=== PATIENT | male | born 1955 | race African-American/Black ===

== ENCOUNTER 2017-05-26 17:28 | Inpatient (IN) | payer OTHER ==
[2017-05-26] VITALS (8 sets, daily range): BP systolic 143–191; BP diastolic 83–112; PULSE 55–67; RESP 15–18; TEMP 98–98.5; O2SAT 96–98
[~2017-05-26] VITALS: Ht 165.1 cm; Wt 87.0 kg
[~2017-05-26 17:28] MED LIST: BLOOD PRESSURE MED
[2017-05-26] MEDS ORDERED: ASPIRIN 81 MG CHEW TAB PO ONE (18:45)
[2017-05-26] MEDS ORDERED: SODIUM CHLORIDE 0.9% FLUSH 10 ML FLUSH IVF PRN (18:45)
--- NOTE | 2017-05-26 18:46 | PD ---
HPI Chief Complaint: Chest Pain Time Seen by Provider: 18:35 Travel History International Travel<30 days: No Contact w/Intl Traveler<30days: No Traveled to known affect area: No History of Present Illness HPI 62-year-old male presents to the emergency department for evaluation of chest pain that started approximately one week ago. He states it is midsternal. He has no chest pain at my evaluation. He states when he does have it'll be sharp without radiation. He reports history of AL with stent placement approximately 1.5 years ago. He states this pain is similar. He states he is not currently follow-up with vice president of brand management. He denies any recent stress test or cardiac catheterization. Patient denies any recent surgery or travel. He denies any history of DVT or PE. No hemoptysis. Patient states the pain has been intermittent over the past week. He denies exacerbating factors. He states that rest well to alleviate pain. Moderate severity. PFSH Past Medical History Cardiac Catheterization: Yes Cardiovascular Problems: Yes (AL) Diminished Hearing: No Hypertension: Yes Immunizations Current: No Tetanus Vaccination: < 5 Years Influenza Vaccination: No Past Surgical History Abdominal Surgery: Yes (HERNIA REPAIR) Appendectomy: Yes Coronary Stent: Yes Other Surgery: Yes (LUNGS A CHILD, DOES NOT KNOW SPECIFICS) Social History Alcohol Use: Yes (OCC) Tobacco Use: Yes (1 PPD) Substance Use: Yes (CRACK) Allergies-Medications (Allergen,Severity, Reaction): Coded Allergies: No Known Allergies (Verified Allergy, Unknown, 05/26/17) Reported Meds & Prescriptions Reported Meds & Active Scripts Active Reported [Blood Pressure Med] Review of Systems Except as stated in HPI: all other systems reviewed are Neg Physical Exam Narrative GENERAL: Well-nourished, well-developed male patient, afebrile. SKIN: Focused skin assessment warm/dry. HEAD: Normocephalic. Atraumatic. EYES: No scleral icterus. No injection or drainage. NECK: Supple, trachea midline. No JVD or lymphadenopathy. CARDIOVASCULAR: Regular rate and rhythm without murmurs, gallops, or rubs. Bilateral radial and pedal pulses are 2+. RESPIRATORY: Breath sounds equal bilaterally. No accessory muscle use. Lungs sounds are clear to auscultation. GASTROINTESTINAL: Abdomen soft, non-tender, nondistended. MUSCULOSKELETAL: No cyanosis, or edema. BACK: Nontender without obvious deformity. No CVA tenderness. Data Data Last Documented VS Vital Signs Date Time Temp Pulse Resp B/P (MAP) Pulse Ox O2 Delivery O2 Flow Rate FiO2 05/26/17 19:13 75 17 98 Room Air 05/26/17 19:12 143/83 (103) 05/26/17 17:29 98.5 Orders Orders Electrocardiogram (05/26/17 ) Basic Metabolic Panel (Bmp) (05/26/17 18:45) Ckmb (Isoenzyme) Profile (05/26/17 18:45) Complete Blood Count With Diff (05/26/17 18:45) Magnesium (Mg) (05/26/17 18:45) Prothrombin Time / Inr (Pt) (05/26/17 18:45) Act Partial Throm Time (Ptt) (05/26/17 18:45) Troponin I (05/26/17 18:45) Chest, Single Ap (05/26/17 18:45) Ecg Monitoring (05/26/17 18:45) Bilateral Bp Monitoring (05/26/17 18:45) Iv Access Insert/Monitor (05/26/17 18:45) Oximetry (05/26/17 18:45) Oxygen Administration (05/26/17 18:45) Aspirin Chew (Aspirin Chew) (05/26/17 18:45) Sodium Chloride 0.9% Flush (Ns Flush) (05/26/17 18:45) CKMB (05/26/17 19:10) CKMB% (05/26/17 19:10) Heparin Inj (Heparin Inj) (05/26/17 20:30) Heparin Inj (Heparin Inj) (05/27/17 02:30) Heparin Inj (Heparin Inj) (05/27/17 02:30) Heparin-D5w 25,000 U/250 Ml (Heparin-D5w (05/26/17 20:30) Cbc No Diff, Includes Plts (05/29/17 06:00) Act Partial Throm Time (Ptt) (05/27/17 03:24) Occult Blood (Hemoccult) Stool (05/26/17 20:24) Consult Cardiology (05/26/17 ) Admit Order (Ed Use Only) (05/26/17 20:40) Labs Laboratory Tests Test 05/26/17 19:10 White Blood Count 5.3 TH/MM3 Red Blood Count 4.75 MIL/MM3 Hemoglobin 14.0 GM/DL Hematocrit 41.6 % Mean Corpuscular Volume 87.4 FL Mean Corpuscular Hemoglobin 29.5 PG Mean Corpuscular Hemoglobin Concent 33.8 % Red Cell Distribution Width 16.6 % Platelet Count 140 TH/MM3 Mean Platelet Volume 7.6 FL Neutrophils (%) (Auto) 40.3 % Lymphocytes (%) (Auto) 45.8 % Monocytes (%) (Auto) 9.5 % Eosinophils (%) (Auto) 3.8 % Basophils (%) (Auto) 0.6 % Neutrophils # (Auto) 2.2 TH/MM3 Lymphocytes # (Auto) 2.4 TH/MM3 Monocytes # (Auto) 0.5 TH/MM3 Eosinophils # (Auto) 0.2 TH/MM3 Basophils # (Auto) 0.0 TH/MM3 CBC Comment DIFF FINAL Differential Comment Prothrombin Time 10.4 SEC Prothromb Time International Ratio 1.0 RATIO Activated Partial Thromboplast Time 25.9 SEC Blood Urea Nitrogen 29 MG/DL Creatinine 2.40 MG/DL Random Glucose 110 MG/DL Calcium Level 8.8 MG/DL Magnesium Level 1.8 MG/DL Sodium Level 140 MEQ/L Potassium Level 3.8 MEQ/L Chloride Level 105 MEQ/L Carbon Dioxide Level 29.6 MEQ/L Anion Gap 5 MEQ/L Estimat Glomerular Filtration Rate 33 ML/MIN Total Creatine Kinase 115 U/L Creatine Kinase MB 5.0 NG/ML Troponin I 1.76 NG/ML MDM Medical Decision Making Medical Screen Exam Complete: Yes Emergency Medical Condition: Yes Medical Record Reviewed: Yes Interpretation(s) Last Impressions Chest X-Ray 05/26/17 2247 Signed Impressions: Service Date/Time: Friday, May 26, 2017 19:18 - CONCLUSION: 1. Minimal basilar atelectasis. Delgado Malhotra MD Differential Diagnosis ACS versus chest wall pain versus anxiety versus pneumonia versus pneumothorax Narrative Course 62-year-old male presents to the emergency department for evaluation of intermittent chest pain for the past week. He states this pain is similar to his previous AL. EKG shows sinus rhythm, unchanged since previous EKG in March. This was reviewed with my attending physician. CBC, BMP, CK, troponin , magnesium, PTT, PT/INR, chest x-ray are ordered and pending. Patient is given aspirin 162 mg by mouth. CBC shows no acute abnormality. BMP shows elevated B and a creatinine at 29/ 2.40. CK is 115. Troponin is 1.76. Magnesium is 1.8. Coags are unremarkable. Chest x-ray shows minimal basilar atelectasis. Due to elevated troponin, vice president of brand management airport operations officer, Dr. Jarvis, is consulted. Patient states he is still chest pain free at this time. Dr. Cleary accepted admission. Josefa Boggs May 26, 2017 18:46
[2017-05-26 19:24] LABS: AUTOMATED NEUTROPHIL # 2.2 TH/MM3 (1.8-7.7); BASOPHIL % 0.6 % (0.0-2.0); EOSINOPHIL # 0.2 TH/MM3 (0-0.4); EOSINOPHIL % 3.8 % (0.0-4.0); HEMATOCRIT 41.6 % (39.0-51.0); HEMO FLAGS DIFF FINAL; LYMPH % 45.8 % (9.0-44.0); LYMPHOCYTE # 2.4 TH/MM3 (1.0-4.8); MEAN CELL VOLUME 87.4 FL (80.0-100.0); MEAN CORPUSCULAR HEMOGLOBIN 29.5 PG (27.0-34.0); MEAN CORPUSCULAR HGB CONC 33.8 % (32.0-36.0); MONO % 9.5 % (0.0-8.0); NEUT % 40.3 % (16.0-70.0); PLATELET COUNT 140 TH/MM3 (150-450); RED BLOOD COUNT 4.75 MIL/MM3 (4.50-5.90); RED CELL DISTRIBUTION WIDTH 16.6 % (11.6-17.2); WHITE BLOOD COUNT 5.3 TH/MM3 (4.0-11.0)
[2017-05-26 19:35] LABS: APTT (PATIENT) 25.9 SEC (24.3-30.1); PROTHROMBIN TIME - PATIENT 10.4 SEC (9.8-11.6)
--- NOTE | 2017-05-26 19:42 | RADRPT ---
EXAM DATE/TIME: 05/26/2017 19:18 [place] COMPARISON: No previous studies available for comparison. INDICATIONS : Chest pain. MEDICAL HISTORY : Myocardial infarction. Hypertension SURGICAL HISTORY : Stents. ENCOUNTER: Initial ACUITY: 1 week PAIN SCORE: 8/10 LOCATION: Bilateral chest Upper Left. FINDINGS: A single view of the chest demonstrates minimal basilar atelectasis. No effusion. No pneumothorax. He art size within normal limits. CONCLUSION: 1. Minimal basilar atelectasis. Delgado Malhotra MD on May 26, 2017 at 19:39 Board Certified Radiologist. This report was verified electronically.
[2017-05-26 19:43] LABS: ANION GAP 5 MEQ/L (5-15); BICARBONATE 29.6 MEQ/L (21.0-32.0); BLOOD UREA NITROGEN 29 MG/DL (7-18); CHLORIDE 105 MEQ/L (98-107); GLOMERULAR FILTRATION RATE 33 ML/MIN (>89); MAGNESIUM 1.8 MG/DL (1.5-2.5); POTASSIUM 3.8 MEQ/L (3.5-5.1); SODIUM (NA) 140 MEQ/L (136-145)
[2017-05-26 19:44] LABS: CREATINE KINASE 115 U/L (39-308)
[2017-05-26] MEDS ORDERED: HEPARIN SODIUM - IV 10,000 UNITS/10 ML VIAL IV PUSH ONE (20:30)
[2017-05-26] MEDS: SODIUM CHLOR 0.9% 1000 ML INJ 1,000 ML IV SCH (20:41)
[2017-05-26] MEDS ORDERED: ACETAMINOPHEN/HYDROcodone 325 MG/5 MG TAB PO PRN (20:45)
[2017-05-26] MEDS ORDERED: ONDANSETRON HCL 4 MG/2 ML VIAL IVP PRN (20:45)
[2017-05-26] MEDS ORDERED: BISACODYL 10 MG SUPP RECTAL PRN (20:45)
[2017-05-26] MEDS ORDERED: MORPHINE SULFATE 4 MG/ML INJ IV PUSH PRN (20:45)
[2017-05-26] MEDS ORDERED: SODIUM CHLORIDE 0.9% FLUSH 10 ML FLUSH IV FLUSH PRN (20:45)
[2017-05-26] MEDS ORDERED: LACTULOSE SYRUP 20 GM/30 ML CUP PO PRN (20:45)
[2017-05-26] MEDS ORDERED: ACETAMINOPHEN 325 MG TAB PO PRN (20:45)
[2017-05-26] MEDS ORDERED: SENNOSIDES 8.6 MG TAB PO PRN (20:45)
[2017-05-26] MEDS ORDERED: NITROGLYCERIN 2% OINT 1 GM PACKET TOPICAL PRN (20:45)
[2017-05-26] MEDS ORDERED: MAGNESIUM HYDROXIDE SUSP 30 ML CUP PO PRN (20:45)
--- NOTE | 2017-05-26 20:46 | HHI.HP ---
[facility] Unknown Admission Diagnosis NSTEMI Diagnoses: (1) NSTEMI (non-ST elevated myocardial infarction) Diagnosis: Principal (2) ISABELLA (acute kidney injury) Diagnosis: Principal (3) HTN (hypertension) Diagnosis: Principal (4) Tobacco abuse Diagnosis: Principal (5) Crack cocaine use Diagnosis: Principal Travel History International Travel<30 Days: No Contact w/Intl Traveler <30 Da: No Traveled to Known Affected Are: No History of Present Illness This is a 62-year-old male with a PMH of HTN, CAD, Tobacco Abuse and Crack Cocaine Abuse who presented to the ER w/ complaints of chest pain x1 wk. States symptoms similar to previous ID, now pain progressively worse. Denies recent crack use. On arrival, BP 191/100, HR 66, O2 sat 97% on RA, Afebrile. CBC essentially unremarkable except for platelets 140, previously 198 on . And in 2.40, producing 1.97 on 04/08/17. Troponin I 1.76. INR 1.0. CXR with minimal basilar atelectasis. Dr. Malhotra consulted by ER physician, started on Heparin gtt, will eval in am, pt currently chest pain free. Review of Systems Except as stated in HPI: all other systems reviewed are Neg ROS: 14 point review of systems otherwise negative. Past Family Social History Past Medical History PMH: HTN, CAD, Tobacco Abuse and Crack Cocaine Abuse Past Surgical History PAST SURGICAL HISTORY: Hernia Repair, Appendectomy, Cardiac Stent Allergies: Coded Allergies: No Known Allergies (Verified Allergy, Unknown, 05/26/17) Family History PAST FAMILY HISTORY: Reviewed. No h/o DM or CAD Social History PAST SOCIAL HISTORY: Occasional alcohol. Smokes 1ppd. +Crack Cocaine. Physical Exam Vital Signs Vital Signs Date Time Temp Pulse Resp B/P (MAP) Pulse Ox O2 Delivery O2 Flow Rate FiO2 05/26/17 19:13 75 17 98 Room Air 05/26/17 19:12 67 18 143/83 (103) 96 Room Air 05/26/17 18:37 66 18 191/100 (130) 97 Room Air 05/26/17 18:37 Room Air 05/26/17 17:36 96 05/26/17 17:29 98.5 157/91 (113) Room Air Physical Exam PE: GENERAL: Middle-aged black male in no acute distress. HEENT: PERRLA, EOMI. No scleral icterus or conjunctival pallor. No lid lag or facial droop. CARDIOVASCULAR: Regular rate and rhythm. No obvious murmurs to auscultation. No chest tenderness to palpation. RESPIRATORY: No obvious rhonchi or wheezing. Clear to auscultation. Breath sounds equal bilaterally. GASTROINTESTINAL: Abdomen soft, non-tender, nondistended. BS normal. MUSCULOSKELETAL: Extremities without clubbing, cyanosis, or edema. No obvious deformities. NEUROLOGICAL: Awake, alert and oriented x4. No focal neurologic deficits. Moving both upper and lower extremities spontaneously. Laboratory Laboratory Tests Test 05/26/17 19:10 White Blood Count 5.3 Red Blood Count 4.75 Hemoglobin 14.0 Hematocrit 41.6 Mean Corpuscular Volume 87.4 Mean Corpuscular Hemoglobin 29.5 Mean Corpuscular Hemoglobin Concent 33.8 Red Cell Distribution Width 16.6 Platelet Count 140 Mean Platelet Volume 7.6 Neutrophils (%) (Auto) 40.3 Lymphocytes (%) (Auto) 45.8 Monocytes (%) (Auto) 9.5 Eosinophils (%) (Auto) 3.8 Basophils (%) (Auto) 0.6 Neutrophils # (Auto) 2.2 Lymphocytes # (Auto) 2.4 Monocytes # (Auto) 0.5 Eosinophils # (Auto) 0.2 Basophils # (Auto) 0.0 CBC Comment DIFF FINAL Differential Comment Prothrombin Time 10.4 Prothromb Time International Ratio 1.0 Activated Partial Thromboplast Time 25.9 Blood Urea Nitrogen 29 Creatinine 2.40 Random Glucose 110 Calcium Level 8.8 Magnesium Level 1.8 Sodium Level 140 Potassium Level 3.8 Chloride Level 105 Carbon Dioxide Level 29.6 Anion Gap 5 Estimat Glomerular Filtration Rate 33 Total Creatine Kinase 115 Creatine Kinase MB 5.0 Troponin I 1.76 Result Diagram: 05/26/17190905/26/171909 Caprini VTE Risk Assessment Caprini VTE Risk Assessment: Mod/High Risk (score >= 2) Caprini Risk Assessment Model Point Value = 1 Point Value = 2 Point Value = 3 Point Value = 5 Age 41-60 Minor surgery BMI > 25 kg/m2 Swollen legs Varicose veins or History of unexplained or recurrent spontaneous Oral contraceptives or hormone replacement Sepsis (< 1 month) Serious lung disease, including pneumonia (< 1 month) Abnormal pulmonary function Acute myocardial infarction Congestive heart failure (< 1 month) History of inflammatory bowel disease Medical patient at bed rest Age 61-74 Arthroscopic surgery Major open surgery (> 45 min) Laparoscopic surgery (> 45 min) Malignancy Confined to bed (> 72 hours) Immobilizing plaster cast Central venous access Age >= 75 History of VTE Family history of VTE Factor V Leiden Prothrombin [id number] Lupus anticoagulant Anticardiolipin antibodies Elevated serum homocysteine Heparin-induced thrombocytopenia Other congenital or acquired thrombophilia Stroke (< 1 month) Elective arthroplasty Hip, pelvis, or leg fracture Acute spinal cord injury (< 1 month) Prophylaxis Regimen Total Risk Factor Score Risk Level Prophylaxis Regimen 0-1 Low Early ambulation 2 Moderate Order ONE of the following: *Sequential Compression Device (SCD) *Heparin 5000 units SQ BID 3-4 Higher Order ONE of the following medications: *Heparin 5000 units SQ TID *Enoxaparin/Lovenox 40 mg SQ daily (WT < 150 kg, CrCl > 30 mL/min) *Enoxaparin/Lovenox 30 mg SQ daily (WT < 150 kg, CrCl > 10-29 mL/min) *Enoxaparin/Lovenox 30 mg SQ BID (WT < 150 kg, CrCl > 30 mL/min) AND/OR *Sequential Compression Device (SCD) 5 or more Highest Order ONE of the following medications: *Heparin 5000 units SQ TID (Preferred with Epidurals) *Enoxaparin/Lovenox 40 mg SQ daily (WT < 150 kg, CrCl > 30 mL/min) *Enoxaparin/Lovenox 30 mg SQ daily (WT < 150 kg, CrCl > 10-29 mL/min) *Enoxaparin/Lovenox 30 mg SQ BID (WT < 150 kg, CrCl > 30 mL/min) AND *Sequential Compression Device (SCD) Assessment and Plan Problem List: (1) NSTEMI (non-ST elevated myocardial infarction) ICD Code: I21.4 - Non-ST elevation (NSTEMI) myocardial infarction (2) ISABELLA (acute kidney injury) ICD Code: N17.9 - Acute kidney failure, unspecified (3) HTN (hypertension) ICD Code: I10 - Essential (primary) hypertension (4) Tobacco abuse ICD Code: Z72.0 - Tobacco use (5) Crack cocaine use ICD Code: F14.90 - Cocaine use, unspecified, uncomplicated Assessment and Plan A/P: 1. NSTEMI: c/o chest pain x1 wk, Trop 1.76, EKG abnormal however no new changes. Dr. Malhotra consulted, started on Heparin gtt, will eval in am. Currently chest pain free. ASA, Statin, hold B-gena in light of h/o Cocaine. Check serial enzymes for trend. Check Urine Drug Screen. 2. ISABELLA: Creatinine 2.40, previously 1.97 on 04/08/17. Check UA and UDS. IVF for hydration, repeat labs in am. 3. HTN: BP 190's on arrival, likely compounded by chest pain. BP currently 150's, will monitor. 4. Tobacco Abuse: Pt counselled. Ativan prn, no NicoDerm to avoid further vasoconstriction. 5. Crack Cocaine Abuse: Denies recent ingestion, check UDS as above, Ativan prn for withdrawal. 6. DVT Prophylaxis: Heparin gtt 7. Social work for d/c planning as needed. 8. Case discussed w/ ER physician at length. Physician Certification 2 Midnight Certification Type: Admission for Inpatient Services Order for Inpatient Services The services are ordered in accordance with Medicare regulations or non- Medicare payer requirements, as applicable. In the case of services not specified as inpatient-only, they are appropriately provided as inpatient services in accordance with the 2-midnight benchmark. Estimated LOS (days): 2 days is the estimated time the patient will need to remain in the hospital, assuming treatment plan goals are met and no additional complications. Post-Hospital Plan: Not yet determined Nadeen Cleary MD May 26, 2017 20:46
[2017-05-26] MEDS: HEPARIN-D5W 25,000 U/250 ML 250 ML IV PRN (20:49)
[2017-05-26] MEDS: SODIUM CHLORIDE 0.9% FLUSH 10 ML FLUSH IV FLUSH SCH (21:00)
[2017-05-26] MEDS ORDERED: METOPROLOL TARTRATE 25 MG TAB PO SCH (21:00)
[2017-05-26] MEDS: DOCUSATE SODIUM 50 MG/SENNA 8.6 MG TAB PO SCH (21:00)
[2017-05-26] MEDS ORDERED: LORazepam 2 MG/ML VIAL IV PUSH PRN (21:45)
[2017-05-26] MEDS ORDERED: TAMS0.4C4 PO (22:53)
[2017-05-26] MEDS ORDERED: ATEN50TA PO (22:53)
[2017-05-26] MEDS ORDERED: PRAS10TA PO (22:53)
[2017-05-26] MEDS ORDERED: HYDR25TA5 PO (22:53)
[2017-05-26] MEDS ORDERED: CITA20TA4 PO (22:53)
[2017-05-26] MEDS ORDERED: ATOR10TA15 PO (22:53)
[2017-05-26] MEDS ORDERED: hydrALAZINE HCL 20 MG/ML VIAL IV PUSH ONE (23:30)
[2017-05-26] MEDS ORDERED: ATORVASTATIN 10 MG TAB PO SCH (23:45)
[2017-05-27] VITALS (22 sets, daily range): BP systolic 146–162; BP diastolic 76–97; PULSE 56–93; RESP 18–20; TEMP 97.2–98.5; O2SAT 95–98
[2017-05-27 01:24] LABS: BLOOD, URINE NEG (NEG); COMMENT (UR) CULT NOT INDICATED; CULTURE IF INDICATED CULT NOT INDICATED; GLUCOSE,URINE NEG (NEG); KETONE, URINE NEG (NEG); MUCUS URINE FEW /lpf (OCC); NITRITE,URINE NEG (NEG); PH, URINE 5.5 (5.0-8.5); SQUAMOUS EPITHELIAL CELL URINE <1 /hpf (0-5); URINE COLOR YELLOW (YELLW/STRAW)
[2017-05-27] MEDS: TAMSULOSIN HCL 0.4 MG CAP PO SCH ×2 (01:37→21:59)
[2017-05-27] MEDS ORDERED: PILL SPLITTER OTHER PRN (02:00)
[2017-05-27] MEDS ORDERED: HEPARIN SODIUM - IV 10,000 UNITS/10 ML VIAL IV PUSH PRN ×2 (02:30)
[2017-05-27 04:27] LABS: AUTOMATED NEUTROPHIL # 1.9 TH/MM3 (1.8-7.7); BASOPHIL % 0.6 % (0.0-2.0); EOSINOPHIL # 0.2 TH/MM3 (0-0.4); EOSINOPHIL % 4.3 % (0.0-4.0); HEMATOCRIT 38.8 % (39.0-51.0); HEMO FLAGS DIFF FINAL; LYMPH % 50.5 % (9.0-44.0); LYMPHOCYTE # 2.8 TH/MM3 (1.0-4.8); MEAN CELL VOLUME 86.8 FL (80.0-100.0); MEAN CORPUSCULAR HEMOGLOBIN 29.4 PG (27.0-34.0); MEAN CORPUSCULAR HGB CONC 33.9 % (32.0-36.0); MONO % 11.2 % (0.0-8.0); NEUT % 33.4 % (16.0-70.0); PLATELET COUNT 131 TH/MM3 (150-450); RED BLOOD COUNT 4.48 MIL/MM3 (4.50-5.90); RED CELL DISTRIBUTION WIDTH 16.1 % (11.6-17.2); WHITE BLOOD COUNT 5.6 TH/MM3 (4.0-11.0)
[2017-05-27 05:06] LABS: APTT (PATIENT) 67.3 SEC (24.3-30.1)
[2017-05-27] MEDS: SODIUM CHLOR 0.9% 1000 ML INJ 1,000 ML IV SCH ×3 (06:41→22:58)
[2017-05-27 07:23] LABS: ALT (GPT) 18 U/L (12-78); ANION GAP 7 MEQ/L (5-15); AST (GOT) 23 U/L (15-37); BICARBONATE 26.1 MEQ/L (21.0-32.0); BLOOD UREA NITROGEN 27 MG/DL (7-18); CHLORIDE 107 MEQ/L (98-107); GLOMERULAR FILTRATION RATE 39 ML/MIN (>89); POTASSIUM 3.6 MEQ/L (3.5-5.1); SODIUM (NA) 140 MEQ/L (136-145)
[2017-05-27 07:27] LABS: ALKALINE PHOSPHATASE 72 U/L (45-117); TOTAL BILIRUBIN ADULT 0.5 MG/DL (0.2-1.0)
--- NOTE | 2017-05-27 07:56 | PD.CONS ---
HPI Consult Requested By Primary Care Physician Unknown History of Present Illness 62-year-old male with a PMH of HTN, CAD, Tobacco Abuse and Crack Cocaine Abuse who presented to the ER w/ complaints of chest pain x1 wk. States symptoms similar to previous PA, now pain progressively worse. Denies recent crack use. Report being noncompliant with Effient for about 1 week. On arrival, BP 191/100 , HR 66, O2 sat 97% on RA, Afebrile. creatinine 2.40. Troponin 1.76. Cardiology consulted for evaluation. Review of Systems Consitutional: DENIES: Fatigue, Fever, Chills, Weight gain, Weight loss Eyes: DENIES: Amaurosis Fugax, Change in vision HEENT: DENIES: Lightheadedness, Change in hearing Respiratory: DENIES: See HPI, Cough, Snoring, Shortness of breath, Wheezing, Sputum production Cardiovascular: COMPLAINS OF: See HPI, Chest pain, DENIES: Palpitations, Syncope, Tachycardia Gastrointestinal: DENIES: Nausea, Vomiting, Change in bowel habits, Reflux, Bloody stools, Melena Genitourinary: DENIES: Urinary incontinence, Difficulty voiding Integumentary: DENIES: Rash Neurologic: DENIES: Tingling or numbness, Memory problems, Poor Balance, Stroke symptoms Musculoskeletal: DENIES: Joint pain, Muscle pain, Limited range of motion, Back pain Psychiatric: DENIES: Anxiety, Depression, Sleep disturbances Hematologic: DENIES: Bruising tendencies, Bleeding tendencies Endocrine: DENIES: Weight gain, Weight loss, Thyroid disease Past Family Social History Allergies: Coded Allergies: No Known Allergies (Verified Allergy, Unknown, 05/26/17) Past Medical History HTN, CAD, Tobacco Abuse and Crack Cocaine Abuse Past Surgical History Hernia Repair, Appendectomy, Cardiac Stent Reported Medications Reported Meds & Active Scripts Active Reported Effient (Prasugrel) 10 Mg Tab 10 Mg PO DAILY Atorvastatin (Atorvastatin Calcium) 10 Mg Tab 10 Mg PO HS Citalopram (Citalopram Hydrobromide) 20 Mg Tab 20 Mg PO DAILY Hydrochlorothiazide 25 Mg Tab 25 Mg PO DAILY Atenolol 50 Mg Tab 50 Mg PO BID Tamsulosin (Tamsulosin HCl) 0.4 Mg Cap 0.4 Mg PO HS [Blood Pressure Med] Active Ordered Medications Current Medications Medications (Trade) Dose Ordered Sig/Fer Route Start Time Stop Time Status Last Admin (Heparin Inj) 5,000 units UNSCH PRN IV PUSH 05/27/17 02:30 (Heparin Inj) 2,500 units UNSCH PRN IV PUSH 05/27/17 02:30 Heparin Sodium/ Dextrose 250 ml @ 10 mls/hr TITRATE PRN IV 05/26/17 20:30 05/26/17 20:49 (Ecotrin Ec) 81 mg DAILY PO 05/27/17 09:00 (Pravachol) 40 mg DAILY PO 05/27/17 09:00 (Nitroglycerin 2% Oint) 0.5 inch Q6HR PRN TOPICAL 05/26/17 20:45 Sodium Chloride 1,000 ml @ 100 mls/hr Q10H IV 05/26/17 20:41 05/26/17 20:41 (NS Flush) 2 ml UNSCH PRN IV FLUSH 05/26/17 20:45 (NS Flush) 2 ml BID IV FLUSH 05/26/17 21:00 (Zofran Inj) 4 mg Q6H PRN IVP 05/26/17 20:45 (Tylenol) 650 mg Q6H PRN PO 05/26/17 20:45 ([place] 5-325 Mg) 1 tab Q4H PRN PO 05/26/17 20:45 (Morphine Inj) 2 mg Q3H PRN IV PUSH 05/26/17 20:45 (Cira-Colace) 1 tab BID PO 05/26/17 21:00 (Milk Of Magnesia Liq) 30 ml Q12H PRN PO 05/26/17 20:45 (Senokot) 17.2 mg Q12H PRN PO 05/26/17 20:45 (Dulcolax Supp) 10 mg DAILY PRN RECTAL 05/26/17 20:45 (Lactulose Liq) 30 ml DAILY PRN PO 05/26/17 20:45 (Ativan Inj) 1 mg Q2H PRN IV PUSH 05/26/17 21:45 (Lipitor) 10 mg HS PO 05/26/17 23:45 05/27/17 01:37 (CeleXA) 20 mg DAILY PO 05/27/17 09:00 (Flomax) 0.4 mg HS PO 05/26/17 23:45 05/27/17 01:37 (Lopressor) 12.5 mg Q12HR PO 05/27/17 09:00 (Pill Splitter) 1 ea UNSCH PRN OTHER 05/27/17 02:00 Family History No h/o DM or CAD Social History Occasional alcohol. Smokes 1ppd. +Crack Cocaine. Physical Exam Vital Signs Vital Signs Date Time Temp Pulse Resp B/P (MAP) Pulse Ox O2 Delivery O2 Flow Rate FiO2 05/27/17 05:00 98.0 63 18 146/93 (110) 98 05/27/17 02:00 57 05/27/17 02:00 98.0 67 18 158/76 (103) 98 05/27/17 01:00 66 05/27/17 00:00 60 05/26/17 23:00 67 05/26/17 22:30 98.0 64 18 186/112 (136) 98 05/26/17 22:01 05/26/17 22:00 56 05/26/17 21:10 55 15 172/91 (118) 98 Room Air 05/26/17 19:13 75 17 98 Room Air 05/26/17 19:12 67 18 143/83 (103) 96 Room Air 05/26/17 18:37 66 18 191/100 (130) 97 Room Air 05/26/17 18:37 Room Air 05/26/17 17:36 96 05/26/17 17:29 98.5 157/91 (113) Room Air Physical Exam GENERAL: Well-nourished, well-developed patient. SKIN: Warm and dry. HEAD: Normocephalic. EYES: No scleral icterus. No injection or drainage. NECK: Supple, trachea midline. No JVD or lymphadenopathy. CARDIOVASCULAR: Regular rate and rhythm without murmurs, gallops, or rubs. RESPIRATORY: Breath sounds equal bilaterally. No accessory muscle use. GASTROINTESTINAL: Abdomen soft, non-tender, nondistended. EXTREMITIES: No cyanosis, or edema. NEUROLOGICAL: Awake, alert, and oriented x 3. Non-focal. Laboratory Laboratory Tests Test 05/26/17 19:10 05/27/17 00:03 05/27/17 00:36 05/27/17 03:30 White Blood Count 5.3 5.6 Red Blood Count 4.75 4.48 Hemoglobin 14.0 13.2 Hematocrit 41.6 38.8 Mean Corpuscular Volume 87.4 86.8 Mean Corpuscular Hemoglobin 29.5 29.4 Mean Corpuscular Hemoglobin Concent 33.8 33.9 Red Cell Distribution Width 16.6 16.1 Platelet Count 140 131 Mean Platelet Volume 7.6 7.7 Neutrophils (%) (Auto) 40.3 33.4 Lymphocytes (%) (Auto) 45.8 50.5 Monocytes (%) (Auto) 9.5 11.2 Eosinophils (%) (Auto) 3.8 4.3 Basophils (%) (Auto) 0.6 0.6 Neutrophils # (Auto) 2.2 1.9 Lymphocytes # (Auto) 2.4 2.8 Monocytes # (Auto) 0.5 0.6 Eosinophils # (Auto) 0.2 0.2 Basophils # (Auto) 0.0 0.0 CBC Comment DIFF FINAL DIFF FINAL Differential Comment Prothrombin Time 10.4 Prothromb Time International Ratio 1.0 Activated Partial Thromboplast Time 25.9 67.3 Blood Urea Nitrogen 29 Creatinine 2.40 Random Glucose 110 Calcium Level 8.8 Magnesium Level 1.8 Sodium Level 140 Potassium Level 3.8 Chloride Level 105 Carbon Dioxide Level 29.6 Anion Gap 5 Estimat Glomerular Filtration Rate 33 Total Creatine Kinase 115 Creatine Kinase MB 5.0 Troponin I 1.76 2.38 Urine Color YELLOW Urine Turbidity CLEAR Urine pH 5.5 Urine Specific [place] 1.016 Urine Protein 30 Urine Glucose (UA) NEG Urine Ketones NEG Urine Occult Blood NEG Urine Nitrite NEG Urine Bilirubin NEG Urine Urobilinogen LESS THAN 2.0 Urine Leukocyte Esterase NEG Urine RBC 1 Urine WBC LESS THAN 1 Urine Squamous Epithelial Cells <1 Urine Mucus FEW Microscopic Urinalysis Comment CULT NOT INDICATED Urine Opiates Screen NEG Urine Barbiturates Screen NEG Urine Amphetamines Screen NEG Urine Benzodiazepines Screen NEG Urine Cocaine Screen NEG Urine Cannabinoids Screen NEG Test 05/27/17 06:26 Blood Urea Nitrogen 27 Creatinine 2.07 Random Glucose 82 Total Protein 6.9 Albumin 3.1 Calcium Level 8.5 Alkaline Phosphatase 72 Aspartate Amino Transf (AST/SGOT) 23 Alanine Aminotransferase (ALT/SGPT) 18 Total Bilirubin 0.5 Sodium Level 140 Potassium Level 3.6 Chloride Level 107 Carbon Dioxide Level 26.1 Anion Gap 7 Estimat Glomerular Filtration Rate 39 Troponin I 2.62 Result Diagram: 05/27/17 0330 05/27/17 0626 Imaging Last Impressions Chest X-Ray 05/26/17 0118 Signed Impressions: Service Date/Time: Friday, May 26, 2017 19:18 - CONCLUSION: 1. Minimal basilar atelectasis. Delgado Malhotra MD Assessment and Plan Problem List: (1) NSTEMI (non-ST elevated myocardial infarction) ICD Codes: I21.4 - Non-ST elevation (NSTEMI) myocardial infarction Plan: NSTEMI in the setting of being noncompliant to Effient. Chest pain free Recs: 1. Cont Heparin drip 2. ASA, BB, and statins 3. Start Effient 4. 2Decho 5. Keep NPO aftermidnight for [facility] in AM 6. IV hydration 7. Hold ACEi given ISABELLA (2) Tobacco abuse ICD Codes: Z72.0 - Tobacco use (3) HTN (hypertension) ICD Codes: I10 - Essential (primary) hypertension (4) ISABELLA (acute kidney injury) ICD Codes: N17.9 - Acute kidney failure, unspecified Chuy De La Garza MD May 27, 2017 07:56
[2017-05-27] MEDS: CITALOPRAM HYDROBROMIDE 20 MG TAB PO SCH (08:25)
[2017-05-27] MEDS: ASPIRIN EC 81 MG TABEC PO SCH (08:25)
[2017-05-27] MEDS: DOCUSATE SODIUM 50 MG/SENNA 8.6 MG TAB PO SCH ×2 (08:26→21:00)
[2017-05-27] MEDS: SODIUM CHLORIDE 0.9% FLUSH 10 ML FLUSH IV FLUSH SCH ×2 (08:26→21:00)
[2017-05-27] MEDS: METOPROLOL TARTRATE 25 MG TAB PO SCH ×2 (08:26→21:59)
[2017-05-27] MEDS ORDERED: PRAVASTATIN SOD 40 MG TAB PO SCH (09:00)
[2017-05-27 12:27] LABS: APTT (PATIENT) 70.6 SEC (24.3-30.1)
--- NOTE | 2017-05-27 13:44 | HHI.PR ---
Subjective Remarks Patient denies any further chest pain since being admitted to hospital. Patient tells me his last cocaine use was 3 years ago. Patient states he plans to quit smoking. Denies any dyspnea. Objective Vitals Vital Signs Date Time Temp Pulse Resp B/P (MAP) Pulse Ox O2 Delivery O2 Flow Rate FiO2 05/27/17 13:13 97.7 61 20 146/87 (106) 95 05/27/17 08:15 98.5 64 20 148/91 (110) 98 05/27/17 07:01 71 05/27/17 05:00 98.0 63 18 146/93 (110) 98 05/27/17 02:00 57 05/27/17 02:00 98.0 67 18 158/76 (103) 98 05/27/17 01:00 66 05/27/17 00:00 60 05/26/17 23:00 67 05/26/17 22:30 98.0 64 18 186/112 (136) 98 05/26/17 22:01 05/26/17 22:00 56 05/26/17 21:10 55 15 172/91 (118) 98 Room Air 05/26/17 19:13 75 17 98 Room Air 05/26/17 19:12 67 18 143/83 (103) 96 Room Air 05/26/17 18:37 66 18 191/100 (130) 97 Room Air 05/26/17 18:37 Room Air 05/26/17 17:36 96 05/26/17 17:29 98.5 157/91 (113) Room Air I/O 05/26/17 05/26/17 05/26/17 05/27/17 05/27/17 05/27/17 07:00 15:00 23:00 07:00 15:00 23:00 Intake Total 240 ml Output Total 450 ml Balance -210 ml Intake Oral 240 ml Output Urine Total 450 ml Result Diagram: 05/27/17 0330 05/27/17 0626 Objective Remarks GENERAL: Well-nourished, well-developed pleasant male patient in no apparent distress. SKIN: Warm and dry. HEAD: Normocephalic. EYES: No scleral icterus. No injection or drainage. NECK: Supple, trachea midline. No JVD or lymphadenopathy. CARDIOVASCULAR: Regular rate and rhythm without murmurs, gallops, or rubs. RESPIRATORY: Breath sounds equal bilaterally. No accessory muscle use. GASTROINTESTINAL: Abdomen soft, non-tender, nondistended. EXTREMITIES: No cyanosis, or edema. NEUROLOGICAL: Awake, alert, and oriented x 3. Non-focal. A/P Problem List: (1) NSTEMI (non-ST elevated myocardial infarction) ICD Code: I21.4 - Non-ST elevation (NSTEMI) myocardial infarction (2) ISABELLA (acute kidney injury) ICD Code: N17.9 - Acute kidney failure, unspecified (3) HTN (hypertension) ICD Code: I10 - Essential (primary) hypertension (4) Tobacco abuse ICD Code: Z72.0 - Tobacco use (5) Crack cocaine use ICD Code: F14.90 - Cocaine use, unspecified, uncomplicated Assessment and Plan 1. NSTEMI: c/o chest pain x1 wk, Trop 1.76, EKG abnormal however no new changes. Dr. Mlahotra cardiology following, planning on left heart catheterization in the morning. Continue heparin drip, Effient, aspirin, statin, metoprolol. Check lipid profile in the morning. 2. ISABELLA, possibly chronic kidney disease due to hypertension: Creatinine 2.40, previously 1.97 on 04/08/17. Improving overnight. Continue IV fluids, replete BMP in the morning. 3. HTN: BP 190's on arrival, likely compounded by chest pain. BP improved. Continue metoprolol. 4. Tobacco Abuse: Pt counselled on cessation. 5. Crack Cocaine Abuse: Denies recent ingestion, urine drug screen is negative. Patient was counseled on strict avoidance of cocaine as it may cause myocardial ischemia. 6. DVT Prophylaxis: Heparin gtt Camila Higgins MD May 27, 2017 13:44
[2017-05-27] MEDS ORDERED: ATORVASTATIN 40 MG TAB PO SCH (21:00)
[2017-05-28] VITALS (25 sets, daily range): BP systolic 123–180; BP diastolic 64–110; PULSE 54–94; RESP 18; TEMP 98–98.5; O2SAT 95–99
[2017-05-28] MEDS: HEPARIN-D5W 25,000 U/250 ML 250 ML IV PRN (00:26)
[2017-05-28] MEDS: METOPROLOL TARTRATE 25 MG TAB PO SCH ×2 (08:42→20:34)
[2017-05-28] MEDS: CITALOPRAM HYDROBROMIDE 20 MG TAB PO SCH (08:43)
[2017-05-28] MEDS: ASPIRIN EC 81 MG TABEC PO SCH (08:43)
[2017-05-28] MEDS: SODIUM CHLORIDE 0.9% FLUSH 10 ML FLUSH IV FLUSH SCH ×2 (08:45→21:00)
[2017-05-28] MEDS: DOCUSATE SODIUM 50 MG/SENNA 8.6 MG TAB PO SCH ×2 (08:45→20:32)
[2017-05-28 09:04] LABS: APTT (PATIENT) 68.9 SEC (24.3-30.1)
[2017-05-28 09:20] LABS: BICARBONATE 26.8 MEQ/L (21.0-32.0); POTASSIUM 3.9 MEQ/L (3.5-5.1)
[2017-05-28 09:23] LABS: HDL CHOLESTEROL 42.1 MG/DL (40.0-60.0)
--- NOTE | 2017-05-28 12:41 | HHI.PR ---
Subjective Remarks Remains without chest pain. Patient states he did not sleep well last night request Remeron which she was on in the past. Objective Vitals Vital Signs Date Time Temp Pulse Resp B/P (MAP) Pulse Ox O2 Delivery O2 Flow Rate FiO2 05/28/17 08:00 98.3 64 18 180/110 (133) 98 05/28/17 05:00 62 05/28/17 04:00 68 05/28/17 03:34 98.4 65 18 164/93 (116) 95 05/28/17 03:00 67 05/28/17 02:00 68 05/28/17 01:00 66 05/28/17 00:00 60 05/27/17 23:00 61 05/27/17 23:00 98.2 70 18 156/96 (116) 95 05/27/17 22:00 62 05/27/17 21:00 56 05/27/17 20:00 97.2 58 18 162/97 (118) 98 05/27/17 20:00 62 05/27/17 19:00 68 05/27/17 17:00 68 05/27/17 16:45 97.7 93 20 156/96 (116) 96 05/27/17 16:13 66 05/27/17 14:00 68 05/27/17 13:13 97.7 61 20 146/87 (106) 95 05/27/17 13:00 68 I/O 05/27/17 05/27/17 05/27/17 05/28/17 05/28/17 05/28/17 06:59 14:59 22:59 06:59 14:59 22:59 Intake Total 240 ml 870 ml 390 ml Output Total 450 ml 650 ml Balance -210 ml 870 ml -260 ml Intake Oral 240 ml 390 ml IV Total 870 ml Output Urine Total 450 ml 650 ml Result Diagram: 05/27/17 0330 05/28/17 0812 Objective Remarks GENERAL: Well-nourished, well-developed pleasant male patient in no apparent distress. SKIN: Warm and dry. HEAD: Normocephalic. EYES: No scleral icterus. No injection or drainage. NECK: Supple, trachea midline. No JVD or lymphadenopathy. CARDIOVASCULAR: Regular rate and rhythm without murmurs, gallops, or rubs. RESPIRATORY: Breath sounds equal bilaterally. No accessory muscle use. GASTROINTESTINAL: Abdomen soft, non-tender, nondistended. EXTREMITIES: No cyanosis, or edema. NEUROLOGICAL: Awake, alert, and oriented x 3. Non-focal. A/P Problem List: (1) NSTEMI (non-ST elevated myocardial infarction) ICD Code: I21.4 - Non-ST elevation (NSTEMI) myocardial infarction (2) ISABELLA (acute kidney injury) ICD Code: N17.9 - Acute kidney failure, unspecified (3) HTN (hypertension) ICD Code: I10 - Essential (primary) hypertension (4) Tobacco abuse ICD Code: Z72.0 - Tobacco use (5) Crack cocaine use ICD Code: F14.90 - Cocaine use, unspecified, uncomplicated Assessment and Plan 1. NSTEMI: c/o chest pain x1 wk, Trop 1.76, EKG abnormal however no new changes. Dr. Malhotra cardiology following, planning on left heart catheterization. Continue heparin drip, Effient, aspirin, statin, metoprolol. Lipid profile LDL 91. 2. ISABELLA, possibly chronic kidney disease due to hypertension: Creatinine 2.40, previously 1.97 on 04/08/17. Improving overnight. Continue IV fluids, repeat BMP in the morning. 3. HTN: BP 190's on arrival, likely compounded by chest pain. Continue metoprolol. Will start hydralazine. 4. Tobacco Abuse: Pt counselled on cessation. 5. Crack Cocaine Abuse: Denies recent ingestion, urine drug screen is negative. Patient was counseled on strict avoidance of cocaine as it may cause myocardial ischemia. 6. Insomnia - start remeron DVT Prophylaxis: Heparin gtt Camila Higgins MD May 28, 2017 12:41
[2017-05-28] MEDS: hydrALAZINE HCL 25 MG TAB PO SCH ×2 (13:23→22:00)
[2017-05-28] MEDS ORDERED: IOHEXOL 350 MG/ML 100 ML BTL (for Cath Lab) OTHER ONE (16:45)
[2017-05-28] MEDS ORDERED: HEPARIN-NS/PF INJ 1,000 ML ONE (16:55)
[2017-05-28] MEDS ORDERED: MIDAZOLAM HCL 2 MG/2 ML VIAL ONE (17:08)
[2017-05-28] MEDS ORDERED: hydrALAZINE HCL 20 MG/ML VIAL ONE (17:44)
--- NOTE | 2017-05-28 18:06 | CATHPROC ---
The 5th Quarter HIS Report Study Information Study Number Admission Scheduled Start Study Start [id number] May 26 2017 8:41PM 05/28/2017 May 28 2017 4:54PM [place] [facility] Cardiac Catheterization Admit Source Facility Department Transfer in from another acute care facility [facility] - Refining Engineer Physician and Clinical Staff Initial Chuy Benavidez Joint Cutter Concetta Carver,PETER Joint Cutter Marquez Ball RN Other cathlab, cathlab Recorder Vinnie Watts RCIS(BS) ScrJaniya Contreras RT(R) (BS) Procedures Performed Procedure Location (Site) Vessel Name Coronary Angiograms LCA Left Coronary Coronary Angiograms RCA Right Coronary L Heart Cath LV Gram-hand inj. LV LV Ventricle Equipment Time Archaeologist Description Size Mfg Part Number Used/Scraped PERCLOSE, PRO GLIDE CLOSER 17:50 [employer] FR 6 [id number] *[id number] Used DEVICE TRANSDUCER, TRUWAVE [id number] 16:55 ROMERO BARTON * Used W/STOCKCOCK *[id number] INTRODUCER SET, 16:55 [employer] FR 5 [id number] *[id number] Used MICROPUNCTURE, STIFFENED [id number] *[id number] 534-521T *[id number] 16:55 [employer] INDUSTRIES PACK, CCL CUSTOM * Used *[id number] 17:45 [employer]/AVE EBU 3.5 Z2 GUIDE CATHETER FR 6 Used *[id number] 16:55 [employer] MEDICAL WIRE, 3MMJ .035 180CM 180CM Used *[id number] 16:55 NAMIC MANIFOLD, 4 PORT * Used *[id number] 16:55 NYCOMED OMNIPAQUE, 350 MG, 150ML 150ML [id number] Used [id number] 16:55 [employer]ET,WARM AIR CCL * Used *[id number] 16:55 TERUMO MEDICAL SHEATH, FR5 TERUMO (10CM) FR 5 Used *[id number] 17:45 [employer] MEDICAL SHEATH, FR6 TERUMO (10CM) FR 6 Used *[id number] History: Current Medications Medication Dosage/Unit Route Frequency Last Date/Time Taken Beta Mike Statins (any) EFFIENT History: Allergies Allergy Reaction No Known Allergies History: Risk Factors Family History of Hypertension Dyslipidemia Previous AR Previous Heart Failure Premature CAD Yes Yes No Yes No Prior Valve Prior PCI Prior PCIDate Prior CABG Surgery No Yes 06/26/2016 No Cerebrovascular Peripheral Artery Chronic Lung On Dialysis Diabetes Disease Disease Disease No No No No No History: Symptoms/Diagnosis Selection Items Chest pain History: Stress Tests Stress or Imaging Studies Performed No History: Other Disease Selection Items CAD HTN History: AR/CV Data Previous Cath Date 06/26/2016 History: Other Current Smoker Packs a Day Years Used Pack Years Yes 1 40 40 Labs Hgb (g/dl) Hct (%) WBC (l/cumm) Platelets (thousands) 11.60-17.00 35.00-51.00 4.00-11.00 150.00-450.00 13.2 38.8 5.6 131 Glucose (mg/dl) BUN (mg/dl) Creatinine (mg/dl) BUN:Creatinine (1:x) 74.00-106.00 7.00-18.00 0.50-1.30 10.00-20.00 76 29 2.1 13.8 Na (meq/l) K (meq/l) 136.00-145.00 3.50-5.10 138 3.9 INR (PTT:PT) 0.90-1.10 1 Troponin I (ng/ml) CPK-MB (ng/ML) 0.02-0.05 0.50-3.60 2.62 Not Drawn Medication Medication Total Dose (Bolus/Oral) Medication Total Dosage/Unit 1% XYLOCAINE 20 mL FENTANYL 100 mcg HYDRALAZINE 20 mg VERSED 2 mg Medications (Bolus/Oral) Medication Time Given Dosage/Unit Administered By Reason 1% XYLOCAINE 05/28/2017 5:17:42 PM 20 mL Chuy De La Garza 20 mL 1% XYLOCAINE given in lab by Chuy De La Garza in Right Groin via Subcutaneous. VERSED 05/28/2017 5:18:08 PM 2 mg Marquez Ball 2 mg VERSED given in lab by Marquez Ball RN in Left Antecubital via Peripheral IV. Ordered by Chuy Castillo. FENTANYL 05/28/2017 5:18:24 PM 50 mcg Marquez Ball 50 mcg FENTANYL given in lab by Marquez Ball RN in Left Antecubital via Peripheral IV. Ordered by Chuy De LaG arza. HYDRALAZINE 05/28/2017 5:45:18 PM 20 mg Marquez Ball 20 mg HYDRALAZINE given in lab by Marquez Ball RN in Left Antecubital via Peripheral IV. Ordered b Chuy Rodriguez. FENTANYL 05/28/2017 5:50:47 PM 50 mcg Marquez Ball 50 mcg FENTANYL given in lab by Marquez Ball RN in Left Antecubital via Peripheral IV. Ordered by Chuy De La Garza. Medication (Drip) Medication Time Given Dosage/Unit Concentration/Unit Diluent (ml) Solutio n IV Solutions 05/28/2017 4:53:54 PM 0 mL (IV) 500 NaCl .9 Patient arrived on IV Solutions given by cathlab, cathlab in Left Antecubital via Peripheral IV. Pump /Drip Flow = 20 ml/hr using NaCl .9. Ordered by Chuy De La Garza. Initial Case Assessment Cardiovascular HR Rhythm NIBP Chest Pain 66 nsr 187/102 0 Edema Present Skin color Skin None Normal Warm Dry Circulatory - Right Pulses Dorsalis Pedis Femoral 2 2 Scale (0,1,2,3,4,d) Circulatory - Left Pulses Dorsalis Pedis Femoral 2 2 Scale (0,1,2,3,4,d) Neurological State Oriented to time-place- Alert Moves all extremities person Respiration - General Respiration Rate SpO2 (%) (B/min) 15 95 Final Case Assessment Cardiovascular HR Rhythm NIBP Chest Pain 73 nsr 164/94 0 Edema Present Skin color Skin None Normal Warm Dry Circulatory - Right Pulses Dorsalis Pedis Femoral 2 2 Scale (0,1,2,3,4,d) Circulatory - Left Pulses Dorsalis Pedis Femoral 2 2 Scale (0,1,2,3,4,d) Neurological State Oriented to time-place- Alert Moves all extremities person Respiration - General Respiration Rate SpO2 (%) (B/min) 15 95 Chronological Log Time Study Chronological Log 16:53:44 Patient arrived via Bed. Heparin drip DCed per MD upon citrus picker. 16:53:45 Patient Name, D.O.B, / Armband Verified By R.N. 16:53:45 Consent signed by the physician and the patient and verified by the Refining Engineer staff. 16:53:45 Pre-op and post- op instructions given; patient acknowledges understanding of instructions. 16:53:46 Verbal Stimulation=2 Physical Stimulation=2 Airway=2 Respiration=2 TOTAL=8. (0=absent, 1=li mited, 2=present) 16:53:48 Presedation assessment performed by Refining Engineer RN. 16:53:50 Immediate Presedation assesment performed by physician. 16:53:50 Patient has been NPO for More than 6Hrs. 16:53:51 Skin Breakdown- none per patient 16:53:52 Patient Warmer Placed on the Table. 16:53:53 Cat Prominences Protected 16:53:54 A # 20 IV was noted in the Antecubital (right). Grade = 0 16:53:54 A # 20 IV was noted in the Antecubital (left). Grade = 0 Patient arrived on IV Solutions given by cathlab, cathlab in Left Antecubital via Peripheral IV . Pump/Drip Flow = 20 16:53:54 ml/hr using NaCl .9. Ordered by Chuy De La Garza. 16:53:55 History and physical on the chart or being dictated. Vitals capture started with the following parameters, Patient=Adult, Interval=5 min, Initial Pr kfqnlc=456 mmHg, 16:54:49 Deflation Rate=5 mmHg, Cuff placed on Left Arm 16:55:54 Reference ECG taken Assessment: Initial Case, HR=66 BPM, Rhythm=nsr, UKTO=779/102 mmhg, Chest Pain=0, Edema=None, Color=Normal, Skin = Warm, Dry Right Pulses: Bert Ped=2, Femoral=2 16:55:57 Left Pulses: Bert Ped=2, Femoral=2 Neurological: State=Alert, Ox3, LANGE Respiration: Resp=15 B/min, SpO2=95 % 16:56:10 HR=72 bpm, CFRU=808/102 mmhg, SpO2=84.0 %, Resp=15 B/min, Pain=0, Pizarro=2 17:00:35 HR=62 bpm, MADQ=273/102 mmhg, YaD5=413.0 %, Resp=14 B/min, Pain=0, Pizarro=2 17:03:42 Bilateral groins prepped with 2% chlorhexidine, and draped after a 3 minute waiting time. 17:04:28 MD paged 17:04:45 MD responded 17:05:34 HR=62 bpm, GWMY=660/105 mmhg, SpO2=89 %, Resp=17 B/min, Pain=0, Pizarro=2 17:10:35 Pressure channel 1 zeroed. 17:10:37 HR=63 bpm, VHIZ=071/107 mmhg, SpO2=98.0 %, Resp=15 B/min, Pain=0, Pizarro=2 17:15:02 MD arrived. 17:15:34 HR=63 bpm, POCS=385/102 mmhg, SpO2=81.0 %, Resp=14 B/min, Pain=0, Pizarro=2 17:16:41 Contrast Scanned 17:16:41 Immediate Presedation assesment performed by physician. Time Out. Correct patient, correct procedure, correct physician, power injector not loaded with contrast with surgical 17:17:33 team present. Time Out Concurred by MD and individual staff in procedure. 17:17:37 Case Start 17:17:38 Verbal Stimulation=2 Physical Stimulation=2 Airway=2 Respiration=2 TOTAL=8. (0=absent, 1=li mited, 2=present) 17:17:42 20 mL 1% XYLOCAINE given in lab by Chuy De La Garza in Right Groin via Subcutaneous. 17:18:08 2 mg VERSED given in lab by Marquez Ball, RN in Left Antecubital via Peripheral IV. Order ed by Chuy De La Garza. 17:18:24 50 mcg FENTANYL given in lab by Marquez Ball, RN in Left Antecubital via Peripheral IV. O rdered by Chuy De La Garza. 17:19:25 Access site was Right Femoral Artery. A INTRODUCER SET, MICROPUNCTURE, STIFFENED FR 5 was advanced into the Fem Art (right) using the :19:33 Percutaneous technique. A SHEATH, FR5 TERUMO (10CM) FR 5 was exchanged in the Fem Art (right). This was necessary in or tiffanie to 17:19:38 accomodate a larger catheter. 17:20:35 HR=66 bpm, RABR=484/106 mmhg, JjR0=131.0 %, Resp=16 B/min, Pain=0, Pizarro=2 A JR 4.0 INFINITI CATHETER FR 5 was advanced over a wire. OMNIPAQUE, 350 MG, 150ML 150ML was us ed for 17:20:48 injections. Recorded Pressure: LV, HR=64, Condition=Condition 1 17:21:51 (Left Ventricle) LV 187/12/26 17:22:00 The LV was manually injected with 10 cc's and visualized. OMNIPAQUE, 350 MG, 150ML 150ML us ed. Recorded Pressure: LV, Ao, HR=66, Condition=Condition 1 17:22:31 (Left Ventricle) LV 176/18/21, (Aorta) Ao 169/85/123 Recorded Pressure: Ao, HR=64, Condition=Condition 1 17:22:49 (Aorta) Ao 176/95/128 17:23:08 The RCA was injected and visualized at various angles. OMNIPAQUE, 350 MG, 150ML 150ML used . 17:24:15 Catheter was removed A JL 4.0 INFINITI CATHETER FR 5 was advanced over a wire. OMNIPAQUE, 350 MG, 150ML 150ML was us ed for 17:24:16 injections. 17:24:50 The LCA was injected and visualized at various angles. OMNIPAQUE, 350 MG, 150ML 150ML used . 17:25:34 HR=64 bpm, TCYE=080/104 mmhg, NrD2=420.0 %, Resp=16 B/min, Pain=0, Pizarro=2 17:30:37 HR=65 bpm, VVZK=630/109 mmhg, RsT6=606.0 %, Resp=14 B/min, Pain=0, Pizarro=2 17:35:38 HR=64 bpm, EHNJ=792/107 mmhg, SpO2=99.0 %, Resp=16 B/min, Pain=0, Pizarro=2 17:40:39 HR=63 bpm, ZQFM=786/103 mmhg, ZrS3=500.0 %, Resp=9 B/min, Pain=0, Pizarro=2 17:44:38 Catheter was removed A SHEATH, FR6 TERUMO (10CM) FR 6 was exchanged in the Fem Art (right). This was necessary in or tiffanie to 17:44:53 accomodate a larger catheter. 20 mg HYDRALAZINE given in lab by Marquez Ball, RN in Left Antecubital via Peripheral IV. Ord ered by Holli 17:45:18 Chuy. 17:45:40 HR=65 bpm, MIHS=070/110 mmhg, FdR6=272.0 %, Resp=17 B/min, Pain=0, Pizarro=2 A EBU 3.5 Z2 GUIDE CATHETER FR 6 was advanced over a wire. OMNIPAQUE, 350 MG, 150ML 150ML was u sed for 17:46:23 injections. Vitals capture started with the following parameters, Patient=Adult, Interval=5 min, Initial Pr yjnyab=251 mmHg, 17:47:18 Deflation Rate=5 mmHg, Cuff placed on Left Arm 17:48:04 HR=63 bpm, XVNA=523/100 mmhg, QiY0=937.0 %, Resp=18 B/min, Pain=0, Pizarro=2 17:48:49 Catheter was removed 17:50:11 An injection in the Fem Art (right) was made through the SHEATH, FR6 TERUMO (10CM) FR 6. 17:50:37 PERCLOSE, PRO GLIDE CLOSER DEVICE FR 6 placement in the Fem Art (right) 17:50:47 50 mcg FENTANYL given in lab by Marquez Ball, RN in Left Antecubital via Peripheral IV. O rdered by Chuy De La Garza. 17:53:03 HR=71 bpm, PLRE=526/94 mmhg, SpO2=97.0 %, Resp=16 B/min 17:53:03 Case End Assessment: Final Case, HR=73 BPM, Rhythm=nsr, JWBY=057/94 mmhg, Chest Pain=0, Edema=None, [place] r=Normal, Skin = Warm, Dry Right Pulses: Bert Ped=2, Femoral=2 17:53:06 Left Pulses: Bert Ped=2, Femoral=2 Neurological: State=Alert, Ox3, LANGE Respiration: Resp=15 B/min, SpO2=95 % 17:53:17 Catheter(s) removed without difficulty 17:53:18 Sterile dressing applied to site 17:53:18 No case complications noted. 17:53:19 Cine recording checked. :53:21 Bedside Report will be given. 17:53:21 Contrast Scanned 17:53:23 A Left Heart Cath was performed. 17:55:50 Patient moved to stretcher End Study - Contrast Media Used In Study Contrast Total Opened (mL) Total Used (mL) Total Wasted (mL) Omnipaque 75 75 0 End Study - Maximum Contrast Load Max Contrast Load (mL) 215.5 End Study - Radiation Exposure Fluoro Time (minutes) 4.5 End Study - Patient Disposition Complications Transferred To Interventional Outcome No Telemetry Bed No attempt made
[2017-05-28] MEDS ORDERED: ATROPINE SULFATE 1 MG/ML VIAL IV PUSH PRN (18:15)
[2017-05-28] MEDS ORDERED: MISC INFORMATION XX ONE (18:15)
[2017-05-28] MEDS ORDERED: ONDANSETRON HCL 4 MG/2 ML VIAL IV PUSH PRN (18:15)
--- NOTE | 2017-05-28 18:45 | MA ---
cc: RAGINI TERAN DATE: 05/28/2017. PROCEDURE PERFORMED: 1. Left heart catheterization. 2. Selective right and left coronary angiography. 3. Left ventriculogram. 4. Right common femoral artery angiography. INDICATIONS FOR THE PROCEDURE: Non S-T elevation myocardial infarction / chest pain. APPROACH: Right transfemoral. DESCRIPTION OF THE PROCEDURE IN DETAIL: Consent signed. The patient was brought into the cardiac bottle labeler in a fasting state. The right groin was prepped and draped in sterile fashion. Using 1% lidocaine for local anesthesia, micropuncture kit a 5-Nigerien sheath was inserted the right common femoral artery. A right common femoral artery angiography was performed to confirm position of the sheath. Then selective right and left coronary angiography was performed with a JR-4 and JL-4 diagnostic catheters. Angiography was taken in multiple views. The JR-4 diagnostic catheter was introduced into the ventricle over a wire using pressure. It was followed by pressure recordings, left ventriculogram and pullback. We identified a difficult to see proximal LAD lesion. We took multiple orthogonal views without being able to see the proximal left anterior descending for which we exchanged to a larger sized catheter. For this, we exchanged the #5 Nigerien sheath for a #6 Nigerien sheath and then we engaged the left main with an EBU 3.5 guide. This confirmed the our suspicion that there is a significant lesion in the proximal LAD as well as in the proximal circumflex configuration, a Chavez 011 configuration. The patient tolerated the procedure well without complication. The estimated blood loss was less than 30 cc. Total contrast used was 75 cc. The right groin was closed with a Perclose device. RESULTS: 1. Right coronary artery is a nondominant lesion. It is small and patent with LAURA III flow and nonobstructing coronary artery disease. 2. The left main is patent giving off the left anterior descending and the left circumflex artery. 3. The left anterior descending is a transapical vessel and has patent stents distally in the left anterior descending however there is a significant 99% lesion in the ostial left anterior descending. Its diagonal vessels are patent. 4. The left circumflex artery is tortuous. It is a dominant vessel giving off the posterior descending artery. It has minimal luminal irregularities throughout and there is a significant lesion proximally in the circumflex of 90% . LEFT VENTRICULOGRAM: Left ventricular pressure was 176/18 with an left ventricular end diastolic pressure of 21. The aortic pressure was 176/95 with a mean of 128. There was no gradient upon pullback from the left ventricle to the aorta. Left ventriculogram reveals a symmetrically alexandru ventricle with an estimated ejection fraction of 60%. CONCLUSIONS: 1. Severe bifurcation lesion involving the left anterior descending and the left circumflex artery. 2. Preserved left ventricular systolic function. 3. Elevated left ventricular end diastolic pressure. RECOMMENDATIONS: The patient will be consulted by CT surgery for a CABG. In the meantime, continue heparin drip. Discontinue Effient. Continue aggressive medical management with aspirin and beta blockers, TOO inhibitors, statins and long- acting Imdur. MD SHANEL King/DECLAN /5:59 PM /6:32 PM PUJA
--- NOTE | 2017-05-28 20:14 | RADRPT ---
EXAM DATE/TIME: 05/28/2017 18:20 [facility] COMPARISON: No previous studies available for comparison. INDICATIONS : Cerebrovascular accident. MEDICAL HISTORY : Myocardial infarction. Hypertension. Chest pain. SURGICAL HISTORY : Coronary artery stent. Appendectomy. Cardiac catheterization. Hernia reapir. ENCOUNTER: Initial ACUITY: 1 day PAIN SCORE: 0/10 LOCATION: Bilateral neck PEAK SYSTOLIC VELOCITIES (cm/sec): ICA/CCA RATIO: Right: 0.7 Left: 0.7 ICA: Right: 83.8 Left: 91.4 CCA: Right: 123.2 Left: 131.2 ECA: Right: 128.1 Left: 104.3 VERTEBRAL: Right: 61.2 antegrade Left: 70.4 antegrade Elevated flow velocities and ICA/CCA ratios have been found to correlate with increased degrees of vessel stenosis, calculated as percentage of diameter relative to a normal segment of distal ICA/CCA FINDINGS: RIGHT CAROTID: Trace plaque seen at the bulb and proximal internal carotid artery. LEFT CAROTID: Mild plaque seen of the bulb and proximal internal carotid artery. 30% or less narrowing. VERTEBRAL ARTERIES: Antegrade flow is seen in both vertebral arteries. MISCELLANEOUS: None. CONCLUSION: Bilateral carotid bifurcation atherosclerosis, trace on the right and mild on the left. No hemodynami naz significant narrowing. Maikol Monique MD on May 28, 2017 at 20:11 Board Certified Radiologist. This report was verified electronically.
[2017-05-28] MEDS: ATORVASTATIN 40 MG TAB PO SCH (20:33)
[2017-05-28] MEDS: MIRTAZAPINE 15 MG TAB PO SCH (20:33)
[2017-05-28] MEDS: TAMSULOSIN HCL 0.4 MG CAP PO SCH (20:34)
[2017-05-28] MEDS: SODIUM CHLOR 0.9% 1000 ML INJ 1,000 ML IV SCH (21:58)
[2017-05-28] MEDS: HEPARIN 25,000 UNITS-D5W 250 ML - PREMIX IV PRN (22:00)
--- NOTE | 2017-05-28 23:20 | EKG ---
Date Performed: 05/26/2017 Time Performed: 17:43:48 PTAGE: 62 years EKG: Sinus rhythm POSSIBLE LEFT ATRIAL ENLARGEMENT ST DEVIATION AND MODERATE T-WAVE ABNORMALITY, CONSIDER ANTERIOR ISC HEMIA ABNORMAL ECG PREVIOUS TRACING : 04/08/2017 12.58 Compared to prior tracing no significant change DOCTOR: Cristian Doss Interpretating Date/Time 05/28/2017 23:20:01
[2017-05-29] VITALS (22 sets, daily range): BP systolic 141–158; BP diastolic 78–86; PULSE 55–78; RESP 16–18; TEMP 97.5–98.4; O2SAT 86–97
[2017-05-29] MEDS: ISOSORBIDE MONONITRATE 30 MG TAB PO SCH (06:10)
[2017-05-29] MEDS: hydrALAZINE HCL 25 MG TAB PO SCH ×3 (06:10→22:14)
[2017-05-29 06:29] LABS: AUTOMATED NEUTROPHIL # 1.7 TH/MM3 (1.8-7.7); BASOPHIL % 0.5 % (0.0-2.0); EOSINOPHIL # 0.2 TH/MM3 (0-0.4); EOSINOPHIL % 4.2 % (0.0-4.0); HEMATOCRIT 38.1 % (39.0-51.0); HEMO FLAGS DIFF FINAL; LYMPH % 43.1 % (9.0-44.0); LYMPHOCYTE # 1.8 TH/MM3 (1.0-4.8); MEAN CELL VOLUME 88.2 FL (80.0-100.0); MEAN CORPUSCULAR HEMOGLOBIN 29.1 PG (27.0-34.0); MONO % 12.2 % (0.0-8.0); PLATELET COUNT 120 TH/MM3 (150-450); RED BLOOD COUNT 4.32 MIL/MM3 (4.50-5.90); RED CELL DISTRIBUTION WIDTH 16.3 % (11.6-17.2); WHITE BLOOD COUNT 4.1 TH/MM3 (4.0-11.0)
[2017-05-29 06:35] LABS: APTT (PATIENT) 45.3 SEC (24.3-30.1)
[2017-05-29 06:50] LABS: BICARBONATE 24.4 MEQ/L (21.0-32.0)
[2017-05-29] MEDS: SODIUM CHLOR 0.9% 1000 ML INJ 1,000 ML IV SCH ×2 (08:05→14:31)
[2017-05-29] MEDS: CITALOPRAM HYDROBROMIDE 20 MG TAB PO SCH (08:21)
[2017-05-29] MEDS: METOPROLOL TARTRATE 25 MG TAB PO SCH ×2 (08:21→22:14)
[2017-05-29] MEDS: ASPIRIN EC 81 MG TABEC PO SCH (08:22)
[2017-05-29] MEDS: DOCUSATE SODIUM 50 MG/SENNA 8.6 MG TAB PO SCH (08:22)
[2017-05-29] MEDS: SODIUM CHLORIDE 0.9% FLUSH 10 ML FLUSH IV FLUSH SCH (08:22)
[2017-05-29] MEDS: HEPARIN 25,000 UNITS-D5W 250 ML - PREMIX IV PRN (08:28)
--- NOTE | 2017-05-29 09:52 | HHI.PR ---
Subjective Remarks No c/p or dyspnea, had [facility] yesterday. Objective Vitals Vital Signs Date Time Temp Pulse Resp B/P (MAP) Pulse Ox O2 Delivery O2 Flow Rate FiO2 05/29/17 08:05 98.4 64 16 143/78 (99) 94 05/29/17 06:26 68 05/29/17 05:00 64 05/29/17 04:00 68 05/29/17 03:00 98.3 64 18 158/80 (106) 97 05/29/17 03:00 62 05/29/17 02:00 68 05/29/17 01:00 64 05/29/17 00:00 64 05/28/17 23:00 64 05/28/17 23:00 98.5 66 18 166/98 (120) 99 05/28/17 22:00 64 05/28/17 21:00 74 05/28/17 20:00 98.0 73 18 167/98 (121) 98 05/28/17 20:00 76 05/28/17 19:00 79 05/28/17 18:00 63 05/28/17 16:00 64 05/28/17 15:21 98.0 94 18 123/80 (94) 96 05/28/17 15:00 75 05/28/17 14:00 64 05/28/17 13:00 54 05/28/17 12:00 60 05/28/17 11:15 98.3 66 18 162/64 (96) 99 05/28/17 11:00 63 05/28/17 10:00 64 I/O 05/28/17 05/28/17 05/28/17 05/29/17 05/29/17 05/29/17 07:00 15:00 23:00 07:00 15:00 23:00 Intake Total 390 ml 480 ml 480 ml Output Total 650 ml 600 ml 800 ml Balance -260 ml -120 ml -320 ml Intake Oral 390 ml 480 ml 480 ml Output Urine Total 650 ml 600 ml 800 ml Result Diagram: 05/29/17 0501 05/29/17 0501 Objective Remarks GENERAL: Well-nourished, well-developed pleasant male patient in no apparent distress. SKIN: Warm and dry. HEAD: Normocephalic. EYES: No scleral icterus. No injection or drainage. NECK: Supple, trachea midline. No JVD or lymphadenopathy. CARDIOVASCULAR: Regular rate and rhythm without murmurs, gallops, or rubs. RESPIRATORY: Breath sounds equal bilaterally. No accessory muscle use. GASTROINTESTINAL: Abdomen soft, non-tender, nondistended. EXTREMITIES: No cyanosis, or edema. NEUROLOGICAL: Awake, alert, and oriented x 3. Non-focal. A/P Problem List: (1) NSTEMI (non-ST elevated myocardial infarction) ICD Code: I21.4 - Non-ST elevation (NSTEMI) myocardial infarction (2) ISABELLA (acute kidney injury) ICD Code: N17.9 - Acute kidney failure, unspecified (3) HTN (hypertension) ICD Code: I10 - Essential (primary) hypertension (4) Tobacco abuse ICD Code: Z72.0 - Tobacco use (5) Crack cocaine use ICD Code: F14.90 - Cocaine use, unspecified, uncomplicated Assessment and Plan 1. NSTEMI: c/o chest pain x1 wk, Trop 1.76, EKG abnormal however no new changes. Dr. Malhotra cardiology following, [facility] yesterday showed severe bifurcation lesion involving the left anterior descending and the left circumflex artery, patent LAD stents. CT surgery has been consulted for consideration of CABG. Continue heparin drip, aspirin, statin, metoprolol. Lipid profile LDL 91. 2. ISABELLA, possibly chronic kidney disease due to hypertension: Creatinine 2.40, previously 1.97 on 04/08/17. Improving overnight. Continue IV fluids, repeat BMP in the morning. 3. HTN: improved. Continue metoprolol, hydralazine 4. Tobacco Abuse: Pt counselled on cessation. 5. Crack Cocaine Abuse: Denies recent ingestion, urine drug screen is negative. Patient was counseled on strict avoidance of cocaine as it may cause myocardial ischemia. 6. Insomnia - cont remeron DVT Prophylaxis: Heparin gtt Camila Higgins MD May 29, 2017 09:52
[2017-05-29] MEDS ORDERED: SODIUM CHLORIDE 0.9% FLUSH 10 ML FLUSH IV FLUSH PRN (12:00)
[2017-05-29] MEDS ORDERED: DEXTROSE 50% IN WATER 50 ML VIAL(D50) IV PUSH PRN (12:00)
[2017-05-29] MEDS ORDERED: CHLORHEXIDINE GLUCONATE 4% SOLN 120 ML BTL TOPICAL SCH (12:00)
[2017-05-29] MEDS ORDERED: ceFAZolin 2 GM PREMIX 50 ML IV SCH (12:00)
[2017-05-29] MEDS ORDERED: METOPROLOL TARTRATE 25 MG TAB PO SCH (12:00)
[2017-05-29] MEDS ORDERED: INSULIN REGULAR (IV INFUSION) 100 UNITS in SODIUM CHLORIDE 0.9% INJ 99 ML IV PRN (12:00)
[2017-05-29] MEDS ORDERED: PAPAVERINE INJ 60 MG, NITROGLYCERIN INJ 100 MCG, DILTIAZEM INJ 100 MG in SODIUM CHLORID... IRRIGATION SCH (12:00)
[2017-05-29] MEDS ORDERED: CEFAZOLIN INJ 500 MG in SODIUM CHLORIDE 0.9% IRR BTL 500 ML IRRIGATION SCH (12:00)
--- NOTE | 2017-05-29 12:00 | PD.CAR.PN ---
CVT Progress Note Subjective/Hospital Course: sts data discussed with pt RISK SCORES About the STS Risk Calculator Procedure: CAB Only Risk of Mortality: 1.157% Morbidity or Mortality: 19.163% Long Length of Stay: 7.052% Short Length of Stay: 38.691% Permanent Stroke: 1.298% Prolonged Ventilation: 12.14% DSW Infection: 0.556% Renal Failure: 5.989% Reoperation: 6.342% Objective: Vital Signs Date Time Temp Pulse Resp B/P (MAP) Pulse Ox O2 Delivery O2 Flow Rate FiO2 05/29/17 11:21 97.7 65 16 141/80 (100) 97 05/29/17 11:00 71 05/29/17 10:00 78 05/29/17 09:00 66 05/29/17 08:05 98.4 64 16 143/78 (99) 94 05/29/17 08:00 76 05/29/17 07:00 73 05/29/17 06:26 68 05/29/17 05:00 64 05/29/17 04:00 68 05/29/17 03:00 98.3 64 18 158/80 (106) 97 05/29/17 03:00 62 05/29/17 02:00 68 05/29/17 01:00 64 05/29/17 00:00 64 05/28/17 23:00 64 05/28/17 23:00 98.5 66 18 166/98 (120) 99 05/28/17 22:00 64 05/28/17 21:00 74 05/28/17 20:00 98.0 73 18 167/98 (121) 98 05/28/17 20:00 76 05/28/17 19:00 79 05/28/17 18:00 63 05/28/17 16:00 64 05/28/17 15:21 98.0 94 18 123/80 (94) 96 05/28/17 15:00 75 05/28/17 14:00 64 05/28/17 13:00 54 05/28/17 12:00 60 Labs: Laboratory Tests Test 05/29/17 05:01 White Blood Count 4.1 TH/MM3 (4.0-11.0) Red Blood Count 4.32 MIL/MM3 (4.50-5.90) Hemoglobin 12.6 GM/DL (13.0-17.0) Hematocrit 38.1 % (39.0-51.0) Mean Corpuscular Volume 88.2 FL (80.0-100.0) Mean Corpuscular Hemoglobin 29.1 PG (27.0-34.0) Mean Corpuscular Hemoglobin Concent 33.0 % (32.0-36.0) Red Cell Distribution Width 16.3 % (11.6-17.2) Platelet Count 120 TH/MM3 (150-450) Mean Platelet Volume 7.6 FL (7.0-11.0) Neutrophils (%) (Auto) 40.0 % (16.0-70.0) Lymphocytes (%) (Auto) 43.1 % (9.0-44.0) Monocytes (%) (Auto) 12.2 % (0.0-8.0) Eosinophils (%) (Auto) 4.2 % (0.0-4.0) Basophils (%) (Auto) 0.5 % (0.0-2.0) Neutrophils # (Auto) 1.7 TH/MM3 (1.8-7.7) Lymphocytes # (Auto) 1.8 TH/MM3 (1.0-4.8) Monocytes # (Auto) 0.5 TH/MM3 (0-0.9) Eosinophils # (Auto) 0.2 TH/MM3 (0-0.4) Basophils # (Auto) 0.0 TH/MM3 (0-0.2) CBC Comment DIFF FINAL Differential Comment Activated Partial Thromboplast Time 45.3 SEC (24.3-30.1) Blood Urea Nitrogen 25 MG/DL (7-18) Creatinine 1.93 MG/DL (0.60-1.30) Random Glucose 83 MG/DL (74-106) Calcium Level 8.3 MG/DL (8.5-10.1) Sodium Level 141 MEQ/L (136-145) Potassium Level 4.0 MEQ/L (3.5-5.1) Chloride Level 109 MEQ/L (98-107) Carbon Dioxide Level 24.4 MEQ/L (21.0-32.0) Anion Gap 8 MEQ/L (5-15) Estimat Glomerular Filtration Rate 43 ML/MIN (>89) Result Diagram: 05/29/1750005/29/17 0501 (1) NSTEMI (non-ST elevated myocardial infarction) Plan: NSTEMI in the setting of being noncompliant to Effient. Chest pain free Recs: 1. Cont Heparin drip 2. ASA, BB, and statins 3. Start Effient 4. 2Decho 5. Keep NPO aftermidnight for LHC in AM 6. IV hydration 7. Hold ACEi given ISABELLA (2) Tobacco abuse (3) HTN (hypertension) (4) ISABELLA (acute kidney injury) Arline Finley May 29, 2017 12:00
[2017-05-29 12:57] LABS: APTT (PATIENT) 63.2 SEC (24.3-30.1)
--- NOTE | 2017-05-29 13:17 | MB ---
cc: SHANI CASAS DATE OF CONSULTATION: 05/29/2017 DATE OF : 1955 HISTORY OF PRESENT ILLNESS The patient presented to the emergency room complaining of chest pain off and on for the past week associated with some diaphoresis, sharp pains lasting sometimes 10 minutes. No shortness of breath. History of previous [place] and stent in [place] to the LAD. He was recently placed on Effient by his primary care but he has been noncompliant or ran out of it in the past week. Blood pressure on arrival was 190/100. His troponin was 1.76, creatinine 2.40. The patient underwent cardiac cath for a non-STEMI which revealed an ejection fraction of 60%. The right coronary artery was a nondominant lesion, patent, nonobstructive. The left main showed no disease. The left anterior descending had patent stents distally, however, there was a significant 99% stenosis. The left circumflex had a proximal lesion of 90%. We were consulted to evaluate for coronary artery bypass grafting. PAST MEDICAL HISTORY 1. Hypertension. 2. Coronary artery disease. 3. Tobacco abuse. 4. History of crack cocaine abuse, but that was 4 years ago. His urine drug screen is negative. 5. Depression. PAST SURGICAL HISTORY 1. Hernia repair. 2. Appendectomy. 3. Cardiac stent. ALLERGIES No known allergies. MEDICATIONS Recorded home medications include: 1. Flomax. 2. Effient. 3. Atorvastatin. 4. Atenolol. 5. Celexa. 6. Hydrochlorothiazide. FAMILY HISTORY Noncontributory SOCIAL HISTORY The patient lives with his two sons. He is , has three children. 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 No alcohol. REVIEW OF SYSTEMS GENERAL: No night sweats, fever, heat or cold intolerance. SKIN: No psoriasis, itching or hives. HEENT: No blurred vision or hearing loss. RESPIRATORY: No cough or shortness of breath. CARDIOVASCULAR: As above in the HPI. GASTROINTESTINAL: No diarrhea or vomiting. GENITOURINARY: No burning, frequency, urgency. 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 ENDOCRINE: No history of diabetes. PHYSICAL EXAMINATION VITAL SIGNS: Blood pressure 140/80, heart rate 60, afebrile. O2 sat 97% on room air. GENERAL: Patient is awake, alert, in no acute distress. HEENT: Head is normocephalic, atraumatic. Pupils equal and reactive. Oral mucosa pink and moist. NECK: Supple. No JVD. HEART: Heart sounds S1, S2, regular rate and rhythm. No audible rubs, murmurs or gallops. LUNGS: Clear to auscultation. No wheezes, rales or rhonchi. ABDOMEN: Soft, nontender. No masses or organomegaly. EXTREMITIES: No cyanosis, clubbing or edema. LABORATORY Hemoglobin 12, hematocrit 38, white cell count 4, platelet count 120. Sodium 141, potassium 4.0, BUN 25, creatinine 1.93. Troponin highest 2.62. Triglycerides 153, cholesterol 164, LDL 91. EKG EKG shows sinus rhythm, T-wave inversion in the anterior leads and probable LVH by EKG criteria. IMAGING The patient also underwent carotid ultrasound which had some trace stenosis on the right, mild on the left. Velocities of 83 on the right and 91 on the left. Chest x-ray was unremarkable. IMPRESSION AND PLAN This is a 62-year-old male with chest pain, positive for non-STEMI. Risk factors include age, tobacco abuse, hypertension, prior WI. STS score is 1.57. The cardiac films have been reviewed by Dr. Shani Casas. Planning will be for coronary artery bypass grafting at 3:00 on Monday. He did come in with an acute on chronic kidney disease. Creatinine has improved. Will follow-up with a creatinine in the a.m. In the meantime will avoid any nephrotoxic medications. The procedures and alternatives will be discussed by Dr. Casas and further planning. Dictated by: SEDRICK Hernandez MD SIOBHAN Ramirez/LÁZARO /12:01 PM /1:13 PM
--- NOTE | 2017-05-29 13:53 | RADRPT ---
EXAM DATE/TIME: 05/29/2017 13:08 [facility] COMPARISON: No previous studies available for comparison. INDICATIONS : Preop cardiac surgery. MEDICAL HISTORY : Myocardial infarction. Hypertension. Chest pain. SURGICAL HISTORY : Coronary artery stent.Appendectomy. Cardiac cath. Hernia repair. ENCOUNTER: Initial ACUITY: 1 day PAIN SCORE: 1/10 LOCATION: Bilateral leg. TECHNIQUE: Venous ultrasound of the left and right leg was performed from the inguinal ligament to the proximal calf. Real-time, color Doppler and spectral tracing, compression and augmentation techniques were us ed. FINDINGS: RIGHT LEG: There is normal compressibility of the deep venous system from the inguinal region to the proximal ca lf. No echogenic clot is seen in the lumen of the common femoral, femoral, popliteal, and posterior tibial veins. There is a normal response of the venous system to proximal and distal augmentation an d respiration. LEFT LEG: There is normal compressibility of the deep venous system from the inguinal region to the proximal ca lf. No echogenic clot is seen in the lumen of the common femoral, femoral, popliteal, and posterior tibial veins. There is a normal response of the venous system to proximal and distal augmentation an d respiration. CONCLUSION: No DVT is identified within either lower extremity. Maikol Ferrara MD on May 29, 2017 at 13:50 Board Certified Radiologist. This report was verified electronically.
--- NOTE | 2017-05-29 15:12 | RADRPT ---
EXAM DATE/TIME: 05/29/2017 13:18 [facility] COMPARISON: No previous studies available for comparison. INDICATIONS : Preop cardiac surgery. MEDICAL HISTORY : Myocardial infarction. Hypertension. Chest pain. SURGICAL HISTORY : Appendectomy. Coronary artery stent. Cardiac cath. Hernia repair. ENCOUNTER: Initial ACUITY: 1 day PAIN SCORE: 1/10 LOCATION: Bilateral leg. GREATER SAPHENOUS VEIN THIGH: PROXIMAL: Right 5 mm Left 4 mm MID: Right 2 mm Left 1 mm DISTAL: Right 2 mm Left Non-visualized CALF: PROXIMAL: Right 2 mm Left Non-visualized MID: Right 1 mm Left Non-visualized DISTAL: Right 2 mm Left Non-visualized FINDINGS: The venous system of the lower extremities are patent by color Doppler imaging. Measurements of the leg veins (in mm) are listed above. CONCLUSION: 1. Venous mapping as above. 2. Nonvisualization of the left greater saphenous vein just above the knee peripherally. This may rep resent prior venous ablation. Kiran Acosta MD on May 29, 2017 at 15:08 Board Certified Radiologist. This report was verified electronically.
[2017-05-29 20:27] LABS: HEMOGLOBIN A1b 1.6 %; HEMOGLOBIN Ao 85.6 %; HEMOGLOBIN LA1C 1.9 %
[2017-05-29] MEDS ORDERED: SODIUM CHLORIDE 0.9% FLUSH 10 ML FLUSH IV FLUSH SCH (21:00)
[2017-05-29] MEDS: MIRTAZAPINE 15 MG TAB PO SCH (22:14)
[2017-05-29] MEDS: ATORVASTATIN 40 MG TAB PO SCH (22:14)
[2017-05-29] MEDS: TAMSULOSIN HCL 0.4 MG CAP PO SCH (22:14)
[2017-05-30] VITALS (19 sets, daily range): BP systolic 92–161; BP diastolic 54–89; PULSE 52–75; RESP 14–21; TEMP 97.7–98.5; O2SAT 90–98
[2017-05-30] MEDS ORDERED: SODIUM CHLORID 0.9% 500 ML IV PRN (01:00)
[2017-05-30] MEDS ORDERED: LACTATED RINGER'S 1000 ML IV PRN (01:00)
[2017-05-30] MEDS ORDERED: POVIDONE IODINE 5% (ANTISEPSIS KIT) 4 APPLICATIONS EACH NARE PRN (01:00)
[2017-05-30] MEDS ORDERED: CHLORHEXIDINE GLUCONATE 2 % 1 PACK (2 CLOTHS) TOPICAL PRN (01:00)
[2017-05-30] MEDS: hydrALAZINE HCL 25 MG TAB PO SCH (06:22)
[2017-05-30 06:46] LABS: BICARBONATE 24.6 MEQ/L (21.0-32.0); POTASSIUM 4.3 MEQ/L (3.5-5.1)
[2017-05-30] MEDS: DOCUSATE SODIUM 50 MG/SENNA 8.6 MG TAB PO SCH ×2 (09:18→21:00)
[2017-05-30] MEDS: CITALOPRAM HYDROBROMIDE 20 MG TAB PO SCH (09:18)
[2017-05-30] MEDS: ASPIRIN EC 81 MG TABEC PO SCH (09:18)
[2017-05-30] MEDS: METOPROLOL TARTRATE 25 MG TAB PO SCH ×2 (09:18→21:00)
[2017-05-30] MEDS: SODIUM CHLORIDE 0.9% FLUSH 10 ML FLUSH IV FLUSH SCH ×2 (09:19→21:00)
[2017-05-30] MEDS: ISOSORBIDE MONONITRATE 30 MG TAB PO SCH (09:20)
[2017-05-30] MEDS: SODIUM CHLOR 0.9% 1000 ML INJ 1,000 ML IV SCH (09:20)
--- NOTE | 2017-05-30 09:35 | RSPPFT ---
DATE OF PROCEDURE: 05/29/17 COMMENTS: Spirometry shows FVC of 2.2 at 68% of predicted, FEV1 of 1.5 at 58%, FEV1/FVC ratio is decreased. Flow is decreased at FEF 25, FEF 50, FEF 75 and FEF 25-75. Post-bronchodilator study was not done. Flow volume loop indicates an obstructive pattern. IMPRESSION: 1. Mild obstructive lung disease. 2. Post-bronchodilator study was not done.
--- NOTE | 2017-05-30 10:38 | PD.CAR.PN ---
CVT Progress Note Subjective/Hospital Course: 62/ male presented to the emergency room complaining of chest pain off and on for the past week associated with some diaphoresis, sharp pains lasting sometimes 10 minutes. No shortness of breath. History of previous [place] and stent in [place] to the LAD. He was recently placed on Effient by his primary care but he has been noncompliant or ran out of it in the past week. Blood pressure on arrival was 190/100. His troponin was 1.76, creatinine 2.40. The patient underwent cardiac cath for a non-STEMI which revealed an ejection fraction of 60%. The right coronary artery was a nondominant lesion, patent, nonobstructive. The left main showed no disease. The left anterior descending had patent stents distally, however, there was a significant 99% stenosis. The left circumflex had a proximal lesion of 90%. We were consulted to evaluate for coronary artery bypass grafting. PAST MEDICAL HISTORY: Hypertension, Coronary artery disease ( stent ) , Tobacco abuse, History of crack cocaine abuse, but that was 4 years ago. His urine drug screen is negative, Depression, anxiety 05/30 for surgery today Objective: Vital Signs Date Time Temp Pulse Resp B/P (MAP) Pulse Ox O2 Delivery O2 Flow Rate FiO2 05/30/17 08:50 98.5 68 21 161/89 (113) 95 05/30/17 05:00 71 05/30/17 04:00 97.8 68 16 148/88 (108) 97 05/30/17 04:00 68 05/30/17 00:00 97.9 62 16 145/79 (101) 97 05/29/17 20:00 98.0 72 16 154/86 (108) 86 05/29/17 18:16 55 05/29/17 17:36 63 05/29/17 16:33 65 05/29/17 15:00 97.5 70 16 146/86 (106) 97 05/29/17 15:00 66 05/29/17 14:00 78 05/29/17 13:00 76 05/29/17 12:00 62 05/29/17 11:21 97.7 65 16 141/80 (100) 97 05/29/17 11:00 71 Labs: Laboratory Tests Test 05/30/17 05:01 Blood Urea Nitrogen 25 MG/DL (7-18) Creatinine 2.02 MG/DL (0.60-1.30) Random Glucose 77 MG/DL (74-106) Calcium Level 8.0 MG/DL (8.5-10.1) Sodium Level 144 MEQ/L (136-145) Potassium Level 4.3 MEQ/L (3.5-5.1) Chloride Level 112 MEQ/L (98-107) Carbon Dioxide Level 24.6 MEQ/L (21.0-32.0) Anion Gap 7 MEQ/L (5-15) Estimat Glomerular Filtration Rate 41 ML/MIN (>89) Result Diagram: 05/29/17 05005/30/17 050 (1) NSTEMI (non-ST elevated myocardial infarction) Plan: for surgery today (2) Tobacco abuse (3) HTN (hypertension) (4) ISABELLA (acute kidney injury) Arline Finley May 30, 2017 10:38
--- NOTE | 2017-05-30 10:44 | HHI.FF ---
Face to Face Verification Diagnosis: (1) Tobacco abuse (2) HTN (hypertension) (3) NSTEMI (non-ST elevated myocardial infarction) (4) ISABELLA (acute kidney injury) (5) S/P CABG (coronary artery bypass graft) Home Health Nursing Order: Signs/symptoms of disease process Medication education-adverse effect Wound care and dressing changes Nursing assessment with vital signs Instructions: Heart and Vascular Surgery patients *Special attention to sternal dressing Mandatory frequency Assess and evaluation, 4 days in a row The next week 3X week 2 times a week for 4 weeks 1 time a week for 5 weeks Schedule Heart and Vascular patients for full 60 day certification period Initial visit Review Open Heart Surgery Discharge Instructions (Sternal precautions, Activity, Elastic hose, Incision care, Driving, Incentive spirometry, Smoking, [place], Work and other) Need Betadine to paint incision Medication reconciliation Importance of follow up care/ check on appointments Make calendar record temperature daily When to call [facility] nurse, review instructions, phone list Incentive Spirometry, demonstration Visit 1- Begin discharge instruction for patient family and/ or caregiver using teach back method- Signs and symptoms of infection Disease characteristics Medicines and side effects Foods and nutrition/ appetite Infection control/ hand washing/ hygiene Visit 2- Continue teaching Discharge instructions- include additional information on smoking cessation , sternal dressing (sternal vac) Visit 3- Continue teaching- Cough and deep breathing, incision monitoring. Choose my plate Visit 4- Continue teaching- Discuss limitations Discuss how they are feeling Discuss progress toward goals Remaining visits- continue teaching and monitoring PREVENA Single Use Negative Wound Therapy System Caregiver Instruction Sheet 1. A Prevena dressing system was applied to the chest incision during surgery , to promote wound healing. It works via a suction device (negative pressure wound therapy) to remove low to moderate levels of exudate (drainage) and infectious materials. We recommend that the device stay in place for up to seven days, from day of surgery. 2. Day of Surgery___05/30/17 Day of Removal ___06/06/17 3. The dressing should only be removed by a health family day care provider. Please arrange removal of device to coincide with Home Health visit and or with Nursing staff at Rehab 4. If skin reddening or irritation of skin occurs, or excessive drainage, please notify the Cardiovascular Surgeons office at [phone]. 5. Light showering is permissible; however the pump should be disconnected and placed in safe location, where it will not get wet. The dressing should not be exposed to direct spray or submerged in water. No bath tub / shower only. Ensure the end of the tubing attached to the dressing is facing down so that water does not enter the top of the tube. 6. To remove Prevena dressing: press purple button to turn off device / remove the suction. Then disconnect the tubing from the pump. The fixation strips should be stretched away from the skin and the dressing lifted at one corner and peeled back until it has been fully removed. 7. After removal, it is ok to shower daily using liquid dial soap and clean wash cloth, rinse and pat dry, and leave incision open to air dry. For any concerns regarding Prevena dressing, and or wounds, please contact Maren Banks, patient navigator at [phone] or notify the Cardiovascular Surgeons office at [phone]. Incentive spirometry Q1 hr x 10, while awake, also use acapella device hourly whole awake Sternal Breast Bone Precautions: NO pushing or pulling, ( pt must use sternal pillow to support chest with all activities and with coughing ( takes up to 3 months breast bone to heal ) Daily incision care: ok to shower daily, no tub bath. Wash all incisions with liquid dial soap, clean wash cloth to each site, rinse and pat dry. Observe for any signs of infection, such as drainage which is dark yellow, chowdhury, green or foul smelling. Immediately report to the surgeon any drainage from the chest incision, or legs, and for any abnormal drainage from the chest tube sites. Notify surgeon if any temp >101.5 degrees F. When specialty dressing removed/ or if you do not have one, continue to shower daily as above, then rinse and pat incision dry and paint with betadine daily x 5 days. Allow steri strips to fall off if you have any. Avoid lotions, creams, salves, oils, etc. for the first month Please see attached forms for additional instructions regarding post Open Heart specialty wound vacuum dressings. NATIVIDAD or Prevena , Dressing to be removed by Nursing staff on __06/05/[address] Casas patients , please obtain CBC, BMP, PA & Lat CXR in 2 weeks, results to Dr. Casas ( prescription will be given) ( ) (Tele: [phone]) , Valve replacement pts will need 2decho in 2 weeks with results to Dr. Casas . 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 Malone & Dr. Casas), After Hours / Nights (5pm -8am) Weekends and Holidays Please call [facility] ([facility]) Charge Nurse I have seen patient Edmond Perez on 05/30/17. My clinical findings support the need for the requested home health care services because: Deconditioned w/ increased weakness I certify that my clinical findings support that this patient is homebound because: Post-op weakness Arline Finley May 30, 2017 10:44
[2017-05-30] MEDS ORDERED: ceFAZolin 2 GM PREMIX 50 ML ONE (11:47)
[2017-05-30] MEDS ORDERED: methylPREDNISolone SOD SUCC 125 MG/2 ML VIAL ONE (11:47)
[2017-05-30] MEDS ORDERED: ACETAMINOPHEN 1000 MG/100 ML 100 ML IV ONE (11:47)
[2017-05-30] MEDS ORDERED: VANCOMYCIN HCL 1000 MG VIAL ONE (11:47)
[2017-05-30] MEDS ORDERED: DEXMEDETOMIDINE HCL 200 MCG/2 ML VIAL ONE (11:48)
[2017-05-30] MEDS ORDERED: NS 100 ML (PAB BAG) 200 ML IV ONE (12:00)
[2017-05-30] MEDS ORDERED: VECURONIUM BROMIDE 10 MG VIAL IV ONE (12:00)
[2017-05-30] MEDS ORDERED: TRANEXAMIC ACID INJ 1,000 MG/10 ML AMP IV ONE (12:00)
[2017-05-30] MEDS ORDERED: MIDAZOLAM HCL 2 MG/2 ML VIAL IV ONE (12:00)
[2017-05-30] MEDS ORDERED: HEPARIN SODIUM - SQ 10,000 UNITS/ML VIAL OTHER ONE (12:00)
[2017-05-30] MEDS ORDERED: fentaNYL CITRATE 2500 MCG/50 ML VIAL IV ONE (12:00)
[2017-05-30] MEDS ORDERED: PHENYLEPHRINE HCL 10 MG/ML VIAL IV ONE (12:00)
[2017-05-30] MEDS ORDERED: ePHEDrine/NS 25 MG/5 ML SYR IV ONE ×2 (12:00)
[2017-05-30] MEDS ORDERED: MAGNESIUM SULFATE 1 GM/2 ML VIAL IV ONE (12:00)
[2017-05-30] MEDS ORDERED: NITROGLYCERIN 50 MG/DEXTROSE 5% SOLN 250 ML BTL IV ONE (12:00)
[2017-05-30] MEDS ORDERED: PHENYLEPH/NS 1000 MCG/10 ML SYR IV ONE (12:00)
[2017-05-30] MEDS ORDERED: SODIUM CHLORID 0.9% 500 ML INJ 500 ML IV ONE (12:00)
[2017-05-30] MEDS ORDERED: SODIUM CHLOR 0.9% 250 ML INJ 500 ML IV ONE (12:00)
[2017-05-30] MEDS ORDERED: ONDANSETRON HCL 4 MG/2 ML VIAL IV PUSH ONE (12:00)
[2017-05-30] MEDS ORDERED: PROTAMINE SULFATE 250 MG/25 ML VIAL IV ONE (12:00)
[2017-05-30] MEDS ORDERED: ARTIFICIAL TEARS OPTH OINT 3.5 APPLIC/3.5 GM TUBO EACH EYE ONE (12:00)
[2017-05-30] MEDS ORDERED: LACTATED RINGER'S 1000 ML INJ 3,000 ML IV ONE (12:00)
[2017-05-30] MEDS ORDERED: NORMOSOL R INJ 2,000 ML IV ONE (12:00)
[2017-05-30] MEDS ORDERED: VECURONIUM BROMIDE 20 MG VIAL IV ONE (12:00)
[2017-05-30] MEDS ORDERED: CARDIOPLEGIC IRR 2,000 ML ONE (12:30)
[2017-05-30] MEDS ORDERED: ALBUMIN 25% INJ 50 ML IV ONE (12:30)
[2017-05-30] MEDS ORDERED: MANNITOL INJ 100 ML ONE (12:31)
[2017-05-30] MEDS ORDERED: SODIUM BICARBONATE 8.4% INJ 50 ML ONE (12:31)
[2017-05-30] MEDS ORDERED: HEPARIN SODIUM - IV 10,000 UNITS/10 ML VIAL ONE (12:32)
[2017-05-30] MEDS ORDERED: POTASSIUM CHLORIDE 40 MEQ/20 ML VIAL ONE (12:32)
[2017-05-30] MEDS ORDERED: CALCIUM CHLORIDE 10% SOLN 1 GRAM/10 ML SYR ONE (12:32)
--- NOTE | 2017-05-30 12:51 | HHI.PR ---
Subjective Remarks Patient denies chest pain. He is going for CABG today with Dr. Sears. Discussed with daughter at bedside, she reports a severe reaction to morphine in the past causing confusion which lasted almost a month and they request this be listed as an allergy and not given postoperatively. I conveyed this to Dr. Sears. Objective Vitals Vital Signs Date Time Temp Pulse Resp B/P (MAP) Pulse Ox O2 Delivery O2 Flow Rate FiO2 05/30/17 11:45 98.2 55 18 139/87 (104) 97 05/30/17 08:50 98.5 68 21 161/89 (113) 95 05/30/17 05:00 71 05/30/17 04:00 97.8 68 16 148/88 (108) 97 05/30/17 04:00 68 05/30/17 00:00 97.9 62 16 145/79 (101) 97 05/29/17 20:00 98.0 72 16 154/86 (108) 86 05/29/17 18:16 55 05/29/17 17:36 63 05/29/17 16:33 65 05/29/17 15:00 97.5 70 16 146/86 (106) 97 05/29/17 15:00 66 05/29/17 14:00 78 05/29/17 13:00 76 I/O 05/29/17 05/29/17 05/29/17 05/30/17 05/30/17 05/30/17 07:00 15:00 23:00 07:00 15:00 23:00 Intake Total 480 ml 1802 ml 480 ml 20.1 ml Output Total 800 ml 650 ml 750 ml 300 ml Balance -320 ml 1152 ml -270 ml -279.9 ml Intake Oral 480 ml 450 ml 480 ml IV Total 1352 ml 20.1 ml Output Urine Total 800 ml 650 ml 750 ml 300 ml Stool Total 0 ml Result Diagram: 05/29/17 0501 05/30/17 0501 Objective Remarks GENERAL: Well-nourished, well-developed pleasant male patient in no apparent distress. SKIN: Warm and dry. HEAD: Normocephalic. EYES: No scleral icterus. No injection or drainage. NECK: Supple, trachea midline. No JVD or lymphadenopathy. CARDIOVASCULAR: Regular rate and rhythm without murmurs, gallops, or rubs. RESPIRATORY: Breath sounds equal bilaterally. No accessory muscle use. GASTROINTESTINAL: Abdomen soft, non-tender, nondistended. EXTREMITIES: No cyanosis, or edema. NEUROLOGICAL: Awake, alert, and oriented x 3. Non-focal. A/P Problem List: (1) NSTEMI (non-ST elevated myocardial infarction) ICD Code: I21.4 - Non-ST elevation (NSTEMI) myocardial infarction (2) ISABELLA (acute kidney injury) ICD Code: N17.9 - Acute kidney failure, unspecified (3) HTN (hypertension) ICD Code: I10 - Essential (primary) hypertension (4) Tobacco abuse ICD Code: Z72.0 - Tobacco use (5) Crack cocaine use ICD Code: F14.90 - Cocaine use, unspecified, uncomplicated Assessment and Plan 1. NSTEMI: c/o chest pain x1 wk, Trop 1.76, EKG abnormal however no new changes. Dr. Malhotra cardiology following, [facility] yesterday showed severe bifurcation lesion involving the left anterior descending and the left circumflex artery, patent LAD stents. CT surgery has been consulted and patient is going for CABG today. Lipid profile LDL 91. 2. ISABELLA, possibly chronic kidney disease due to hypertension: Creatinine 2.40, previously 1.97 on 04/08/17. Creatinine now stable around 2. repeat BMP in the morning. 3. HTN: improved. Continue metoprolol, hydralazine 4. Tobacco Abuse: Pt counselled on cessation. 5. Crack Cocaine Abuse: Denies recent ingestion, urine drug screen is negative. Patient was counseled on strict avoidance of cocaine as it may cause myocardial ischemia. 6. Insomnia - cont remeron DVT Prophylaxis: Heparin gtt Camila Higgins MD May 30, 2017 12:51
[2017-05-30] MEDS ORDERED: SUGAMMADEX SODIUM 200 MG/2 ML VIAL IV PUSH ONE ×2 (16:15)
[2017-05-30] MEDS ORDERED: CLEVIDIPINE INJ 50 ML ONE (16:16)
[2017-05-30] MEDS ORDERED: ceFAZolin INJ 1,000 MG VIAL ONE (16:22)
[2017-05-30] MEDS ORDERED: LACTATED RINGER'S 1000 ML INJ 500 ML IV PRN (16:25)
[2017-05-30] MEDS ORDERED: CALCIUM CHLORIDE 10% 1 GRAM/10 ML VIAL IV PUSH PRN (16:30)
[2017-05-30] MEDS ORDERED: DEXTROSE 50% IN WATER 50 ML VIAL(D50) IV PUSH PRN (16:30)
[2017-05-30] MEDS ORDERED: METOPROLOL TARTRATE 5 MG/5 ML VIAL IV PUSH PRN (16:30)
[2017-05-30] MEDS ORDERED: POTASSIUM CHLORIDE 20 MEQ CONTROLLED RELEASE TAB PO PRN ×2 (16:30)
[2017-05-30] MEDS ORDERED: RESP: RACEPINEPHRINE 2.25% 0.5 ML NEB NEB PRN (16:30)
[2017-05-30] MEDS ORDERED: SODIUM BICARBONATE 8.4% SOLN 50 MEQ/50 ML VIAL IV PUSH PRN ×2 (16:30)
[2017-05-30] MEDS ORDERED: ONDANSETRON HCL 4 MG/2 ML VIAL IV PUSH PRN (16:30)
[2017-05-30] MEDS ORDERED: DEXMEDETOMIDINE INJ 200 MCG in SODIUM CHLORIDE 0.9% INJ 50 ML IV PRN (16:30)
[2017-05-30] MEDS ORDERED: ALBUMIN 5% INJ 250 ML IV PRN (16:30)
[2017-05-30] MEDS ORDERED: ACETAMINOPHEN 650 MG SUPP RECTAL PRN (16:30)
[2017-05-30] MEDS ORDERED: INSULIN REGULAR (IV INFUSION) 100 UNITS in SODIUM CHLORIDE 0.9% INJ 99 ML IV PRN (16:30)
[2017-05-30] MEDS ORDERED: CALCIUM CHLORIDE INJ 1 GM in SODIUM CHLORIDE 0.9% INJ 100 ML IV PRN ×2 (16:30→23:45)
[2017-05-30] MEDS ORDERED: ACETAMINOPHEN 325 MG TAB PO PRN (16:30)
[2017-05-30] MEDS ORDERED: RESP: ALBUTEROL 2.5 MG/IPRATROPIUM 0.5 MG NEB (PRN) NEB (16:30)
[2017-05-30] MEDS ORDERED: Post-op Orders (for Pharmacy) OTHER ONE (16:30)
[2017-05-30] MEDS ORDERED: SODIUM CHLORIDE 0.9% FLUSH 10 ML FLUSH IV FLUSH PRN (16:30)
[2017-05-30] MEDS ORDERED: MAGNESIUM SULFATE INJ 2 GM in SODIUM CHLORIDE 0.9% INJ 100 ML IV PRN ×4 (16:30)
[2017-05-30] MEDS ORDERED: POTASSIUM CHLOR 20 MEQ PREMIX 100 ML IV PRN ×4 (16:30→23:45)
--- NOTE | 2017-05-30 16:43 | PD.OP ---
cc: Chuy De La Garza MD; Shani Casas MD Operative Report Date of Surgery: May 30, 2017 Preoperative Diagnosis: (1) CAD (coronary artery disease) (2) HTN (hypertension) (3) NSTEMI (non-ST elevated myocardial infarction) Postoperative Diagnosis: same Procedure: CABG x 2 AGUILAR to LAD - fair SVG to OM - good EVH (right) Anesthesia: Dr. Gipson Surgeon: Shani Casas Paper Wood Cutter(s): Maria Eugenia TORRES Operation and Findings: The risks, benefits, complications, treatment options, and expected outcomes were discussed with the patient. The possibilities of reaction to medication, pulmonary aspiration, perforation of viscus, bleeding, recurrent infection, the need for additional procedures, failure to diagnose a condition, and creating a complication requiring transfusion or operation were discussed with the patient. The patient concurred with the proposed plan, giving informed consent. The site of surgery properly noted/marked. The patient was taken to Operating Room, identified as Edmond Perez and the procedure verified as CABG, EVH. A Time Out was held and the above information confirmed. Standard monitoring lines and Jacome catheter were placed. General anesthesia was induced. The patient was prepped and draped in a sterile fashion. A median sternotomy was performed and electrocautery was used to obtain hemostasis. The left internal mammary artery was procured as a pedicle from the 7th rib to the 1st rib in the usual manner. Simultaneously right greater saphenous vein was procured from the right leg using a minimally invasive endoscopic technique. The vein was prepared for anastomosis and the leg wound was irrigated and closed in 2 layers. The pericardium was opened and a pericardial sling was created using interrupted 0 silk sutures. The patient was heparinized for cardiopulmonary bypass and the distal mammary pedicle was instrumented for anastomosis. The heart was instrumented for cardiopulmonary bypass in the usual manner. Antegrade blood cardioplegia was employed. The patient was placed on cardiopulmonary bypass. An aortic cross-clamp was applied and the heart was arrested using cold blood cardioplegia. Antegrade cardioplegia was administered after he each anastomosis. After adequate arrest, the 1st circumflex marginal artery was then opened with a [place] blade and found to be a 1.5 millimeter good target. Saphenous vein was approximated to the OM1 artery using a running 7 0 Prolene suture. The graft was measured for length and orientation and was suspended from the pericardium. The distal LAD was opened with a [place] blade and found to be a 1.5 millimeter fair target. Most of the LAD was intramyocardial. The left internal mammary artery was approximated to the LAD using a running 7 0 Prolene suture. The pedicle was attached to the epicardium using interrupted 5 0 silk suture. The patient was systemically rewarmed and received a hotshot dose of warm blood cardioplegia. The aorta was vented and the proximal anastomosis to the OM1 graft was accomplished using a running 5 0 Prolene suture after creating an aortotomy was a 5 millimeter punch. The cross-clamp was removed and all proximal and distal anastomoses were examined for hemostasis. The patient was weaned from cardiopulmonary bypass. Protamine was given. There was no adverse reaction. Decannulation was carried out without incident. Wound was checked for hemostasis which was obtained using electrocautery. A 36 [place] mediastinal and 32 [place] left pleural chest tubes were placed and secured to the skin with 0 silk suture. The sternum was closed with stainless steel wire. The fascia was closed with 1. PDS. The subcutaneous tissue was closed using a running 2-0 Vicryl suture. The skin was closed with 4-0 Monocryl. Sterile dressings were placed. At the end of the operation, all sponge, instruments, and needle counts were correct. The patient was transferred to the CVICU in stable condition. Findings: Marked LVH, dilated pulmonary artery at the PV. XC: 38 min CPB: 52 min Drains: mediastinal x 1 pleural x 1 Complications: none Disposition: to CVICU in stable condition Shani Casas MD May 30, 2017 16:43
[2017-05-30] MEDS: ACETAMINOPHEN 1000 MG/100 ML 100 ML IV SCH (17:34)
[2017-05-30] MEDS: CLEVIDIPINE INJ 50 ML IV PRN ×2 (18:14→22:09)
--- NOTE | 2017-05-30 18:14 | RADRPT ---
EXAM DATE/TIME: 05/30/2017 17:20 [facility] COMPARISON: CHEST SINGLE AP, May 26, 2017, 19:18. INDICATIONS : Post CABG. MEDICAL HISTORY : Myocardial infarction. Hypertension SURGICAL HISTORY : Stents. ENCOUNTER: Initial ACUITY: 1 day PAIN SCORE: Non-responsive. LOCATION: Bilateral chest FINDINGS: Right internal jugular central line has its tip in the superior vena cava. Mediastinal drain and left -sided chest tube are in good positions. The endotracheal tube has its tip in good position 3 cm abov e the kacie. A nasogastric tube is noted in good position in the stomach. Median sternotomy wires ar e noted status post cardiac surgery. The heart is mildly prominent. Scattered perihilar atelectatic c hanges are noted. No pneumothorax is noted. CONCLUSION: 1. Mild cardiomegaly. 2. Perihilar atelectatic changes bilaterally. 3. Multiple tubes and lines are in good positions. Kodak Reardon MD on May 30, 2017 at 18:11 Board Certified Radiologist. This report was verified electronically.
[2017-05-30] MEDS ORDERED: MEPERIDINE HCL 25 MG/ML VIAL ONE (20:08)
[2017-05-30] MEDS ORDERED: MEPERIDINE HCL 25 MG/ML VIAL IV ONE (20:30)
[2017-05-30] MEDS: RESP: ALBUTEROL 2.5 MG/IPRATROPIUM 0.5 MG NEB (SCH) NEB (20:51)
[2017-05-30] MEDS: AMIODARONE 200 MG TAB PO SCH (21:00)
[2017-05-30] MEDS: MIRTAZAPINE 15 MG TAB PO SCH (21:00)
[2017-05-30] MEDS: TAMSULOSIN HCL 0.4 MG CAP PO SCH (21:00)
[2017-05-30] MEDS: ATORVASTATIN 40 MG TAB PO SCH (21:00)
[2017-05-31] VITALS (11 sets, daily range): BP systolic 138–164; BP diastolic 41–94; PULSE 73–95; RESP 14–20; TEMP 97.7–98.4; O2SAT 90–98
[2017-05-31] MEDS: CLEVIDIPINE INJ 50 ML IV PRN ×5 (00:38→06:35)
[2017-05-31] MEDS: ACETAMINOPHEN 1000 MG/100 ML 100 ML IV SCH ×3 (01:02→10:26)
[2017-05-31] MEDS: RESP: ALBUTEROL 2.5 MG/IPRATROPIUM 0.5 MG NEB (SCH) NEB ×4 (03:32→21:31)
[2017-05-31 04:24] LABS: MEAN CELL VOLUME 88.3 FL (80.0-100.0); MEAN CORPUSCULAR HEMOGLOBIN 29.2 PG (27.0-34.0); MEAN CORPUSCULAR HGB CONC 33.1 % (32.0-36.0); PLATELET COUNT 128 TH/MM3 (150-450); REVIEW FLAG FINAL; WHITE BLOOD COUNT 12.5 TH/MM3 (4.0-11.0)
[2017-05-31 04:54] LABS: BICARBONATE 21.5 MEQ/L (21.0-32.0); MAGNESIUM 2.3 MG/DL (1.5-2.5); POTASSIUM 4.7 MEQ/L (3.5-5.1)
--- NOTE | 2017-05-31 05:29 | RADRPT ---
EXAM DATE/TIME: 05/31/2017 04:40 [facility] COMPARISON: CHEST SINGLE AP, May 30, 2017, 17:20. INDICATIONS : Status post extubation after CABG. MEDICAL HISTORY : Myocardial infarction. Hypertension. SURGICAL HISTORY : Coronary artery stent. Cardiac catheterization. ENCOUNTER: Subsequent ACUITY: 4 - 6 days PAIN SCORE: Non-responsive. LOCATION: Bilateral chest FINDINGS: A single AP semierect view of the chest was obtained and demonstrates interval extubation and removal of the nasogastric tube. The right internal jugular central venous line remains in place as does the left-sided chest tube with no pneumothorax. The previous noted mediastinal chest tube is also been r emoved. The patient is status post median sternotomy. There are no confluent infiltrates or effusions . CONCLUSION: 1. Interval extubation and removal of nasogastric tube. 2. Interval removal of mediastinal chest tube with no pneumothorax. Ty Conley MD on May 31, 2017 at 5:26 Board Certified Radiologist. This report was verified electronically.
[2017-05-31] MEDS: PANTOPRAZOLE SOD 40 MG DELAYED RELEASE TAB PO SCH (05:58)
[2017-05-31] MEDS: SODIUM CHLOR 0.9% 1000 ML INJ 1,000 ML IV SCH (05:58)
[2017-05-31] MEDS: hydrALAZINE HCL 25 MG TAB PO SCH ×3 (05:58→22:11)
[2017-05-31] MEDS ORDERED: BISACODYL 10 MG SUPP RECTAL PRN (08:45)
[2017-05-31] MEDS ORDERED: amLODIPine BESYLATE 5 MG TAB PO ONE (08:45)
[2017-05-31] MEDS ORDERED: SOD PHOSPHATE/SOD BIPHOSPHATE (ADULT) ENEMA 133ML RECTAL PRN (08:45)
[2017-05-31] MEDS ORDERED: DEXTROSE 50% IN WATER 50 ML VIAL(D50) IV PUSH PRN ×2 (08:45→17:00)
[2017-05-31] MEDS ORDERED: GLUCAGON 1 MG/ML VIAL OTHER PRN ×2 (08:45→17:00)
[2017-05-31] MEDS ORDERED: INSULIN DETEMIR 100 UNITS/ML VIAL SQ ONE (08:45)
[2017-05-31] MEDS: ASPIRIN EC 81 MG TABEC PO SCH (09:00)
[2017-05-31] MEDS: AMIODARONE 200 MG TAB PO SCH ×2 (09:03→20:42)
[2017-05-31] MEDS: CITALOPRAM HYDROBROMIDE 20 MG TAB PO SCH (09:03)
[2017-05-31] MEDS: METOPROLOL TARTRATE 25 MG TAB PO SCH ×2 (09:04→20:42)
[2017-05-31] MEDS: SODIUM CHLORIDE 0.9% FLUSH 10 ML FLUSH IV FLUSH SCH ×2 (09:04→20:41)
[2017-05-31] MEDS: CLOPIDOGREL 75 MG TAB PO SCH (09:26)
[2017-05-31] MEDS: INSULIN ASPART SUPPLEMENTAL SCALE SQ SCH ×4 (10:00→19:48)
--- NOTE | 2017-05-31 10:09 | EKG ---
Date Performed: 05/31/2017 Time Performed: 05:39:24 PTAGE: 62 years EKG: Sinus rhythm Anterolateral ST-T changes Abnormal ECG PREVIOUS TRACING : 05/26/2017 17.43 Compared to prior tracing no significant change DOCTOR: Alisa Cunha Interpretating Date/Time 05/31/2017 10:07:47
[2017-05-31] MEDS: ACETAMINOPHEN/HYDROcodone 325 MG/5 MG TAB PO PRN ×2 (10:26→22:08)
[2017-05-31] MEDS: MULTIVITAMINS/MINERALS THERAPEUTIC TAB PO SCH (10:27)
--- NOTE | 2017-05-31 11:02 | PD.CAR.PN ---
CVT Progress Note Subjective/Hospital Course: 62/ male presented to the emergency room complaining of chest pain off and on for the past week associated with some diaphoresis, sharp pains lasting sometimes 10 minutes. No shortness of breath. History of previous [place] and stent in [place] to the LAD. He was recently placed on Effient by his primary care but he has been noncompliant or ran out of it in the past week. Blood pressure on arrival was 190/100. His troponin was 1.76, creatinine 2.40. The patient underwent cardiac cath for a non-STEMI which revealed an ejection fraction of 60%. The right coronary artery was a nondominant lesion, patent, nonobstructive. The left main showed no disease. The left anterior descending had patent stents distally, however, there was a significant 99% stenosis. The left circumflex had a proximal lesion of 90%. We were consulted to evaluate for coronary artery bypass grafting. PAST MEDICAL HISTORY: Hypertension, Coronary artery disease ( stent ) , Tobacco abuse, History of crack cocaine abuse, but that was 4 years ago. His urine drug screen is negative, Depression, anxiety 05/30: CABG x 2 AGUILAR to LAD - fair SVG to OM - good EVH (right) 4000cc crystalloid, 750cc cell saver 1500cc EBL 05/31 on 50% venti mask, atelectasis on CXR needs aggressive pulm toileting creatinine 2.10/ hold on diuresing weaning off cleviprex , on BB, norvasc and hydralazine transfer to stepdown Objective: GENERAL: SKIN: Warm and dry. prevena dressing to chest , edmund wrap to right leg HEAD: Normocephalic. EYES: No scleral icterus. No injection or drainage. NECK: Supple, trachea midline. No JVD or lymphadenopathy. CARDIOVASCULAR: Regular rate and rhythm without murmurs, gallops, or rubs. RESPIRATORY: Breath sounds equal bilaterally. No accessory muscle use. diminished in bases GASTROINTESTINAL: Abdomen soft, non-tender, nondistended. MUSCULOSKELETAL: No cyanosis, or edema. BACK: Nontender without obvious deformity. No CVA tenderness. Vital Signs Date Time Temp Pulse Resp B/P (MAP) Pulse Ox O2 Delivery O2 Flow Rate FiO2 05/31/17 08:51 92 Venturi Mask 6.00 50 05/31/17 06:35 88 122/76 05/31/17 06:34 18 05/31/17 05:45 18 05/31/17 05:45 18 05/31/17 05:15 83 163/72 05/31/17 03:39 72 149/66 05/31/17 03:00 97.7 77 20 138/75 (96) 92 158/67 (97) 05/31/17 03:00 81 05/31/17 02:42 73 158/73 05/31/17 00:38 77 155/69 05/30/17 23:39 90 Nasal Cannula 4 40 05/30/17 23:00 97.9 75 21 117/69 (85) 95 137/66 (89) 05/30/17 23:00 73 05/30/17 22:09 72 137/80 05/30/17 21:29 14 05/30/17 21:28 128/60 05/30/17 21:12 97 40 05/30/17 20:28 98 50 05/30/17 20:00 50 05/30/17 20:00 66 124/61 05/30/17 19:15 63 05/30/17 19:15 97.7 62 14 115/72 (86) 97 141/67 (91) 05/30/17 18:15 92 50 05/30/17 18:14 68 149/85 05/30/17 17:22 94 60 05/30/17 17:00 63 05/30/17 17:00 97.8 63 14 92/54 (67) 90 106/72 (83) 05/30/17 17:00 100 05/30/17 12:00 52 05/30/17 11:45 98.2 55 18 139/87 (104) 97 05/30/17 11:00 54 Labs: Laboratory Tests Test 05/31/17 03:00 White Blood Count 12.5 TH/MM3 (4.0-11.0) Red Blood Count 4.30 MIL/MM3 (4.50-5.90) Hemoglobin 12.6 GM/DL (13.0-17.0) Hematocrit 38.0 % (39.0-51.0) Mean Corpuscular Volume 88.3 FL (80.0-100.0) Mean Corpuscular Hemoglobin 29.2 PG (27.0-34.0) Mean Corpuscular Hemoglobin Concent 33.1 % (32.0-36.0) Red Cell Distribution Width 17.0 % (11.6-17.2) Platelet Count 128 TH/MM3 (150-450) Mean Platelet Volume 8.7 FL (7.0-11.0) Blood Urea Nitrogen 24 MG/DL (7-18) Creatinine 2.10 MG/DL (0.60-1.30) Random Glucose 135 MG/DL (74-106) Calcium Level 9.3 MG/DL (8.5-10.1) Magnesium Level 2.3 MG/DL (1.5-2.5) Sodium Level 143 MEQ/L (136-145) Potassium Level 4.7 MEQ/L (3.5-5.1) Chloride Level 112 MEQ/L (98-107) Carbon Dioxide Level 21.5 MEQ/L (21.0-32.0) Anion Gap 10 MEQ/L (5-15) Estimat Glomerular Filtration Rate 39 ML/MIN (>89) Result Diagram: 05/31/17 0300 05/31/17 0300 Telemetry: NSR (1) NSTEMI (non-ST elevated myocardial infarction) (2) S/P CABG (coronary artery bypass graft) Plan: ASA, statin , BB amiodarone and plavix pulm toileting nebs ezpap acapella eval for HHC at discharge postop EKG stable (3) Tobacco abuse Plan: smoking cessation (4) HTN (hypertension) Plan: on BB, hydralazine and norvasc (5) ISABELLA (acute kidney injury) Plan: creatinine stable, avoid nephrotoxics Arline Palacios May 31, 2017 11:02
[2017-05-31] MEDS: hydrALAZINE HCL 20 MG/ML VIAL IV PUSH PRN ×2 (11:59→23:15)
[2017-05-31] MEDS ORDERED: SODIUM CHLORIDE 0.9% FLUSH 10 ML FLUSH IV FLUSH PRN (17:00)
--- NOTE | 2017-05-31 17:14 | RADRPT ---
EXAM DATE/TIME: 05/31/2017 16:31 [facility] COMPARISON: No previous studies available for comparison. INDICATIONS : Stroke alert,right sided weakness RADIATION DOSE: 56.35 CTDIvol (mGy) This report was called by Dr. Acosta to Dr. Beck at 1710 MEDICAL HISTORY : Unable to obtain SURGICAL HISTORY : Unable to obtain ENCOUNTER: Initial ACUITY: 1 day PAIN SCALE: 0/10 LOCATION: cranial TECHNIQUE: Multiple contiguous axial images were obtained of the head. Using automated exposure control and adj ustment of the mA and/or kV according to patient size, radiation dose was kept as low as reasonably a chievable to obtain optimal diagnostic quality images. DICOM format image data is available electro nically for review and comparison. FINDINGS: CEREBRUM: The ventricles are normal for age. No evidence of midline shift, mass lesion, hemorrhage or acute in farction. Old right frontal parietal watershed infarct. There may be punctate No extra-axial fluid c ollections are seen. POSTERIOR FOSSA: Old left paramidline pontine infarct. The 4th ventricle is midline. The cerebellopontine angle is u nremarkable. EXTRACRANIAL: The visualized portion of the orbits is intact. Small retention cyst in the left maxillary antra. SKULL: The calvaria is intact. No evidence of skull fracture. CONCLUSION: 1. Old infarct in the right frontoparietal watershed area extending into the anterior horn of the rig ht internal capsule as well as an old left para midline pontine infarct. 2. Possible punctate lacunar type infarct in the posterior limb of left internal capsule. Nothing acu te 3. Small retention cyst left maxillary antrum. Kiran Acosta MD on May 31, 2017 at 16:53 Board Certified Radiologist. This report was verified electronically.
[2017-05-31 17:19] LABS: I-STAT POTASSIUM 5.5 MMOL/L (3.5-4.9)
[2017-05-31 17:20] LABS: AUTOMATED NEUTROPHIL # 14.6 TH/MM3 (1.8-7.7); BASOPHIL % 0.2 % (0.0-2.0); HEMATOCRIT 36.1 % (39.0-51.0); HEMO FLAGS DIFF FINAL; LYMPHOCYTE # 2.2 TH/MM3 (1.0-4.8); MEAN CELL VOLUME 88.5 FL (80.0-100.0); MEAN CORPUSCULAR HEMOGLOBIN 28.5 PG (27.0-34.0); MEAN CORPUSCULAR HGB CONC 32.3 % (32.0-36.0); MONO % 8.7 % (0.0-8.0); NEUT % 79.1 % (16.0-70.0); PLATELET COUNT 152 TH/MM3 (150-450); RED BLOOD COUNT 4.08 MIL/MM3 (4.50-5.90); RED CELL DISTRIBUTION WIDTH 17.1 % (11.6-17.2); WHITE BLOOD COUNT 18.4 TH/MM3 (4.0-11.0)
[2017-05-31] MEDS: ASPIRIN 325 MG TAB PO SCH (17:25)
[2017-05-31 17:29] LABS: APTT (PATIENT) 28.7 SEC (24.3-30.1); INTERNATIONAL NORMALIZED RATIO 1.1 RATIO; PROTHROMBIN TIME - PATIENT 10.9 SEC (9.8-11.6)
[2017-05-31 18:18] LABS: HEMOGLOBIN A1a 1.1 %; HEMOGLOBIN A1b 1.5 %; HEMOGLOBIN Ao 84.7 %; HEMOGLOBIN F 0.2 %; HEMOGLOBIN LA1C 2.4 %; HEMOGLOBIN P3 4.2 %
--- NOTE | 2017-05-31 18:30 | MB ---
cc: HARIS HICKMAN M.D. DATE OF CONSULTATION 05/31/2017 REASON FOR CONSULTATION Stroke alert. HISTORY OF PRESENT ILLNESS Mr. Perez is a 62-year-old man who underwent a coronary artery bypass procedure yesterday. He was doing very well today, was ambulating and suddenly this afternoon developed difficulty getting words out, as well as severe right-sided weakness where he could not move the arm or leg. A stroke alert was called immediately. He since has gone down for CT of the brain which revealed no acute change. In the interim his symptoms have completely resolved back to normal. NEUROLOGIC EXAMINATION VITAL SIGNS: Blood pressure 146/82, pulse is 73, respirations 16, temperature 97 degrees. He is in normal sinus rhythm. No sign of atrial fibrillation. NEUROLOGIC: He is alert, oriented x3. Speech is normal at this time. Comprehension intact. Cranial nerves II-XII are normal. Motor exam 5/5 strength of all groups in both upper and lower extremities. There is no drift. Reflexes symmetric. IMAGING CT of the brain no acute change. Carotid ultrasound revealed mild atherosclerosis, no significant stenosis. LABORATORY DATA White count 12,500, hemoglobin 12.6, hematocrit 38%, platelets 128,000. Sodium is 143, potassium 4.7, chloride 112, CO2 is 21.5, BUN is 24, creatinine 2.1, GFR is 39. APTT 63.2. IMPRESSION Probable TIA in the left hemisphere now completely resolved. RECOMMENDATIONS The patient is not a candidate for IV TPA given the recent surgery as well as a complete resolution of symptoms. He is not a candidate for CTA given the high creatinine. At the present time he is completely resolved. He is on Plavix 75 mg daily. Would recommend adding aspirin 325 mg daily. Would maintain head of bed flat for the next 12 hours. Monitor neurological status carefully. Would treat blood pressure only if his systolic got above 150. MD JOSE Field/NICK /4:58 PM /6:12 PM
--- NOTE | 2017-05-31 19:02 | PD.CONS ---
HPI Service Critical Care Medicine Consult Requested By Elise Casas MD Reason for Consult Stroke alert Primary Care Physician Unknown History of Present Illness 62-year-old male with a medical history significant for hypertension, coronary artery disease, tobacco abuse, crack cocaine abuse who was admitted with a non- ST elevation HI and underwent cardiac catheterization with subsequent evaluation by CT surgery and underwent two-vessel CABG with AGUILAR to LAD and SVG to OM on 05/30/[address] Casas, tolerated procedure well was subsequently extubated and then transferred out of ICU today. This afternoon he developed speech difficulty with severe right sided weakness while ambulating. A stroke alert was called. Head CT was negative for any bleed. He was subsequently transferred to CVICU. Critical care consult was requested by Dr. Casas for stroke alert. I evaluated the patient following his arrival to the ICU. His symptoms had already started resolving with improvement in his right sided weakness as well as speech at the time of my evaluation. He did not appear to be in any acute distress. I also discussed the case with Dr. Beck from neurology who was present in the ICU at the time. Patient was complaining of some chest wall pain following his surgery otherwise not in any acute distress. He still felt that his speech was off. Review of Systems Except as stated in HPI: all other systems reviewed are Neg ROS: 14 point review of systems otherwise negative. Past Family Social History Past Medical History PMH: HTN, CAD, Tobacco Abuse and Crack Cocaine Abuse Past Surgical History PAST SURGICAL HISTORY: Hernia Repair, Appendectomy, Cardiac Stent Allergies: Coded Allergies: No Known Allergies (Verified Allergy, Unknown, 05/26/17) Family History PAST FAMILY HISTORY: Reviewed. No h/o DM or CAD Social History PAST SOCIAL HISTORY: Occasional alcohol. Smokes 1ppd. +Crack Cocaine. Physical Exam Vital Signs Vital Signs Date Time Temp Pulse Resp B/P (MAP) Pulse Ox O2 Delivery O2 Flow Rate FiO2 05/31/17 17:00 98.4 88 18 142/41 (74) 90 05/31/17 17:00 94 Simple Mask 5.00 05/31/17 15:08 97.9 83 18 140/80 (100) 98 Arterial Line 05/31/17 15:05 83 05/31/17 14:29 95 Nasal Cannula 4.00 05/31/17 11:59 14 05/31/17 11:00 73 05/31/17 11:00 97.7 73 16 146/82 (103) 95 159/74 (102) 05/31/17 08:51 92 Venturi Mask 6.00 50 05/31/17 07:00 83 05/31/17 07:00 97.8 83 14 154/82 (106) 93 155/65 (95) 05/31/17 06:35 88 122/76 05/31/17 06:34 18 05/31/17 05:45 18 05/31/17 05:45 18 05/31/17 05:15 83 163/72 05/31/17 03:39 72 149/66 05/31/17 03:00 97.7 77 20 138/75 (96) 92 158/67 (97) 05/31/17 03:00 81 05/31/17 02:42 73 158/73 05/31/17 00:38 77 155/69 05/30/17 23:39 90 Nasal Cannula 4 40 05/30/17 23:00 97.9 75 21 117/69 (85) 95 137/66 (89) 05/30/17 23:00 73 05/30/17 22:09 72 137/80 05/30/17 21:29 14 05/30/17 21:28 128/60 05/30/17 21:12 97 40 05/30/17 20:28 98 50 05/30/17 20:00 50 05/30/17 20:00 66 124/61 05/30/17 19:15 63 05/30/17 19:15 97.7 62 14 115/72 (86) 97 141/67 (91) Physical Exam HEENT/Neuro: No pallor or icterus, tongue moist, CHANNING, Awake alert oriented 3 , speech appears normal, nonfocal grossly, moving all 4 extremities with grade 5 power in both upper and lower extremities. No pronator drift. DTR symmetric bilaterally. Plantars equivocal Neck: No JVD Chest/pulmonary: NATIVIDAD dressing over sternotomy site noted. CTA bilaterally. Mediastinal/ pleural drain in place with serosanguineous drainage Cardiovascular: S1-S2 regular no gallop or murmur GI/abdomen: Soft, nontender, bowel sounds present Extremities: Warm bilaterally, no edema Laboratory Laboratory Tests Test 05/31/17 03:00 05/31/17 16:54 White Blood Count 12.5 18.4 Red Blood Count 4.30 4.08 Hemoglobin 12.6 11.6 Hematocrit 38.0 36.1 Mean Corpuscular Volume 88.3 88.5 Mean Corpuscular Hemoglobin 29.2 28.5 Mean Corpuscular Hemoglobin Concent 33.1 32.3 Red Cell Distribution Width 17.0 17.1 Platelet Count 128 152 Mean Platelet Volume 8.7 7.5 Blood Urea Nitrogen 24 Creatinine 2.10 Random Glucose 135 Calcium Level 9.3 Magnesium Level 2.3 Sodium Level 143 Potassium Level 4.7 Chloride Level 112 Carbon Dioxide Level 21.5 Anion Gap 10 Estimat Glomerular Filtration Rate 39 Bedside Hemoglobin 11.2 Bedside Hematocrit 33.0 Neutrophils (%) (Auto) 79.1 Lymphocytes (%) (Auto) 12.0 Monocytes (%) (Auto) 8.7 Eosinophils (%) (Auto) 0.0 Basophils (%) (Auto) 0.2 Neutrophils # (Auto) 14.6 Lymphocytes # (Auto) 2.2 Monocytes # (Auto) 1.6 Eosinophils # (Auto) 0.0 Basophils # (Auto) 0.0 CBC Comment DIFF FINAL Differential Comment Prothrombin Time 10.9 Prothromb Time International Ratio 1.1 Activated Partial Thromboplast Time 28.7 Fibrinogen 334 Bedside Sodium 139 Bedside Potassium 5.5 Bedside Chloride 110 Bedside Blood Urea Nitrogen 26 Bedside Creatinine 2.3 Bedside Glucose 119 Total Creatine Kinase 878 Creatine Kinase MB 10.0 Creatine Kinase MB % 1.1 Troponin I 1.93 Result Diagram: 05/31/17 1654 05/31/17 0300 Imaging Last 48 hours Impressions Chest X-Ray 05/31/17 0500 Signed Impressions: Service Date/Time: Wednesday, May 31, 2017 04:40 - CONCLUSION: 1. Interval extubation and removal of nasogastric tube. 2. Interval removal of mediastinal chest tube with no pneumothorax. Ty Conley MD Head CT 05/31/17 0000 Signed Impressions: Service Date/Time: Wednesday, May 31, 2017 16:31 - CONCLUSION: 1. 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 2. Possible punctate lacunar type infarct in the posterior limb of left internal capsule. Nothing acute 3. Small retention cyst left maxillary antrum. Kiran Acosta MD Chest X-Ray 05/30/17 0000 Signed Impressions: Service Date/Time: Tuesday, May 30, 2017 17:20 - CONCLUSION: 1. Mild cardiomegaly. 2. Perihilar atelectatic changes bilaterally. 3. Multiple tubes and lines are in good positions. Kodak Reardon MD Assessment and Plan Assessment and Plan 62-year-old male with: Stroke alert CAD status post non-STEMI with multivessel CAD Status post CABG 05/30 Hypertension Plan: Neuro: Follow neuro checks per ICU protocol. Patient has been evaluated by neurology. Head CT negative for bleed. On Plavix. Aspirin being added by Dr. Beck. Not a candidate for TPA in view of recent CABG. Cardiovascular: Continue antihypertensives. Hold antihypertensives for systolic blood pressure less than 1 50 mmHg in view of stroke. Aspirin/Plavix. Follow chest tube/mediastinal drains. CT surgery following for status post CABG. Pulmonary: Supplemental O2, broncho-dilators, pulmonary toilet. GI/liver: Swallow eval. Advance by mouth diet per CT surgery recommendations. Renal/: Strict intake output, monitor and replete elect lites, follow BUN/ creatinine. ID: No antibiotics at this time Heme: Follow CBC Endocrine: SSI for glycemic control as needed Prophylaxis: SCDs, Lovenox when okay with CT surgery. Discussed with Dr. Beck from neurology, discussed with ICU nursing staff. Time spent on critical care excluding procedures 50 minutes Greg Amato MD May 31, 2017 19:01
[2017-05-31] MEDS: MIRTAZAPINE 15 MG TAB PO SCH (20:41)
[2017-05-31] MEDS: SENNOSIDES 8.6 MG TAB PO SCH (20:41)
[2017-05-31] MEDS: TAMSULOSIN HCL 0.4 MG CAP PO SCH (20:41)
[2017-05-31] MEDS: ATORVASTATIN 40 MG TAB PO SCH (20:42)
[2017-05-31] MEDS: DOCUSATE SODIUM 100 MG CAP PO SCH (20:42)
[2017-05-31] MEDS ORDERED: SODIUM CHLORIDE 0.9% FLUSH 10 ML FLUSH IV FLUSH SCH (21:00)
[2017-06-01] VITALS (8 sets, daily range): BP systolic 149–181; BP diastolic 77–117; PULSE 94–129; RESP 18–20; TEMP 97.9–99.1; O2SAT 94–96
[2017-06-01] MEDS: ACETAMINOPHEN/HYDROcodone 325 MG/5 MG TAB PO PRN (02:45)
[2017-06-01] MEDS ORDERED: LORazepam 2 MG/ML VIAL IV SCH (03:15)
[2017-06-01] MEDS: hydrALAZINE HCL 20 MG/ML VIAL IV PUSH PRN ×2 (03:44→23:25)
[2017-06-01] MEDS ORDERED: diphenhydrAMINE HCL 50 MG/ML VIAL ONE (03:59)
[2017-06-01] MEDS ORDERED: diphenhydrAMINE HCL 50 MG/ML VIAL IV SCH (04:00)
[2017-06-01] MEDS ORDERED: HALOPERIDOL LACTATE 5 MG/ML AMP IV SCH (04:15)
[2017-06-01] MEDS: PANTOPRAZOLE SOD 40 MG DELAYED RELEASE TAB PO SCH (06:00)
[2017-06-01] MEDS: hydrALAZINE HCL 25 MG TAB PO SCH ×3 (06:00→22:00)
[2017-06-01 06:39] LABS: AUTOMATED NEUTROPHIL # 10.6 TH/MM3 (1.8-7.7); BASOPHIL % 0.2 % (0.0-2.0); EOSINOPHIL % 0.1 % (0.0-4.0); HEMATOCRIT 36.1 % (39.0-51.0); HEMO FLAGS DIFF FINAL; LYMPH % 10.8 % (9.0-44.0); LYMPHOCYTE # 1.4 TH/MM3 (1.0-4.8); MEAN CELL VOLUME 87.3 FL (80.0-100.0); MEAN CORPUSCULAR HEMOGLOBIN 28.8 PG (27.0-34.0); MONO % 9.7 % (0.0-8.0); NEUT % 79.2 % (16.0-70.0); PLATELET COUNT 142 TH/MM3 (150-450); RED BLOOD COUNT 4.14 MIL/MM3 (4.50-5.90); RED CELL DISTRIBUTION WIDTH 16.9 % (11.6-17.2); WHITE BLOOD COUNT 13.3 TH/MM3 (4.0-11.0)
[2017-06-01 07:05] LABS: BICARBONATE 24.7 MEQ/L (21.0-32.0); POTASSIUM 5.8 MEQ/L (3.5-5.1)
[2017-06-01 07:06] LABS: HDL CHOLESTEROL 40.2 MG/DL (40.0-60.0)
[2017-06-01] MEDS: RESP: ALBUTEROL 2.5 MG/IPRATROPIUM 0.5 MG NEB (SCH) NEB ×3 (07:28→20:40)
[2017-06-01] MEDS: INSULIN ASPART SUPPLEMENTAL SCALE SQ SCH ×4 (08:00→21:00)
[2017-06-01] MEDS: POLYETHYLENE GLYCOL 17 GM PKG PO SCH ×2 (09:00→10:20)
[2017-06-01] MEDS: METOPROLOL TARTRATE 25 MG TAB PO SCH ×2 (09:00→21:00)
[2017-06-01] MEDS ORDERED: FUROSEMIDE 100 MG/10 ML VIAL IV PUSH ONE ×2 (09:15→17:30)
[2017-06-01] MEDS: SODIUM POLYSTYRENE SULFONATE SUSP 15 GM/60 ML CUP PO SCH ×5 (10:00→17:05)
--- NOTE | 2017-06-01 10:04 | RADRPT ---
EXAM DATE/TIME: 06/01/2017 09:05 [facility] COMPARISON: CHEST SINGLE AP, May 31, 2017, 4:40. INDICATIONS : Atelectasis MEDICAL HISTORY : Myocardial infarction. Hypertension SURGICAL HISTORY : CABG. Coronary artery stent. Cardiac catheterization ENCOUNTER: Subsequent ACUITY: 4 - 6 days PAIN SCORE: Non-responsive. LOCATION: chest FINDINGS: Stable right IJ central line, mediastinal drain and left-sided chest tube. Mild bibasilar airspace di sease, right greater the left. No significant pneumothorax. Cardiomediastinal contours are stable. Re mainder the exam is unchanged. CONCLUSION: 1. Stable tubes and lines, as above. 2. Mild bibasilar airspace disease, likely atelectasis. Mil Vences MD on June 01, 2017 at 10:01 Board Certified Radiologist. This report was verified electronically.
[2017-06-01] MEDS: AMIODARONE 200 MG TAB PO SCH ×2 (10:15→21:00)
[2017-06-01] MEDS: CITALOPRAM HYDROBROMIDE 20 MG TAB PO SCH (10:15)
[2017-06-01] MEDS: ASPIRIN 325 MG TAB PO SCH (10:17)
[2017-06-01] MEDS: CLOPIDOGREL 75 MG TAB PO SCH (10:18)
[2017-06-01] MEDS: DOCUSATE SODIUM 100 MG CAP PO SCH ×2 (10:18→21:00)
[2017-06-01] MEDS: MULTIVITAMINS/MINERALS THERAPEUTIC TAB PO SCH (10:18)
[2017-06-01] MEDS: SODIUM CHLORIDE 0.9% FLUSH 10 ML FLUSH IV FLUSH SCH ×2 (10:23→21:00)
[2017-06-01] MEDS ORDERED: INSULIN ASPART SUPPLEMENTAL SCALE SQ SCH (12:00)
--- NOTE | 2017-06-01 15:21 | PD.CAR.PN ---
CVT Progress Note Subjective/Hospital Course: 62/ male presented to the emergency room complaining of chest pain off and on for the past week associated with some diaphoresis, sharp pains lasting sometimes 10 minutes. No shortness of breath. History of previous [place] and stent in [place] to the LAD. He was recently placed on Effient by his primary care but he has been noncompliant or ran out of it in the past week. Blood pressure on arrival was 190/100. His troponin was 1.76, creatinine 2.40. The patient underwent cardiac cath for a non-STEMI which revealed an ejection fraction of 60%. The right coronary artery was a nondominant lesion, patent, nonobstructive. The left main showed no disease. The left anterior descending had patent stents distally, however, there was a significant 99% stenosis. The left circumflex had a proximal lesion of 90%. We were consulted to evaluate for coronary artery bypass grafting. PAST MEDICAL HISTORY: Hypertension, Coronary artery disease ( stent ) , Tobacco abuse, History of crack cocaine abuse, but that was 4 years ago. His urine drug screen is negative, Depression, anxiety 05/30: CABG x 2 AGUILAR to LAD - fair SVG to OM - good EVH (right) 4000cc crystalloid, 750cc cell saver 1500cc EBL 05/31 on 50% venti mask, atelectasis on CXR needs aggressive pulm toileting creatinine 2.10/ hold on diuresing weaning off cleviprex , on BB, norvasc and hydralazine transfer to stepdown 06/01 stroke alert called yesterday pt was in chair and had sudden onset right arm leg weakness, facial drooping CT Head: Old infarct in the right frontoparietal watershed area extending into the anterior horn of the right internal capsule as well as an old left para midline pontine infarct, Possible punctate lacunar type infarct in the posterior limb of left internal capsule. Nothing acute pt on full dose ASA and Plavix transferred back to CVICU with neuro checks, eval by neurology and followed by [facility] 06/02 pt somewhat confused, required placement of restraints to avoid pulling out chest tubes required full assistance to get OOB, has speech, PT and OT will need rehab placement at discharge chest tubes drained 200cc/ still requiring high 02 requirement K+ 5.8/ lasix 80mg IV x 1, Kayexalate po recheck K+ this afternoon Objective: GENERAL: slurred speech , right sided weakness SKIN: Warm and dry. HEAD: Normocephalic. EYES: No scleral icterus. No injection or drainage. NECK: Supple, trachea midline. No JVD or lymphadenopathy. CARDIOVASCULAR: Regular rate and rhythm without murmurs, gallops, or rubs. RESPIRATORY: Breath sounds equal bilaterally. No accessory muscle use. + basilar crackles , congested cough / chest tube to wall suction , no air leak GASTROINTESTINAL: Abdomen soft, non-tender, nondistended. MUSCULOSKELETAL: No cyanosis, or edema. BACK: Nontender without obvious deformity. No CVA tenderness. Vital Signs Date Time Temp Pulse Resp B/P (MAP) Pulse Ox O2 Delivery O2 Flow Rate FiO2 06/01/17 15:00 101 06/01/17 15:00 98.9 101 18 152/87 (108) 94 06/01/17 11:20 98.7 94 20 150/77 (101) 95 06/01/17 11:20 94 06/01/17 07:29 94 Simple Mask 10.00 06/01/17 07:00 99.0 101 20 149/87 (107) 94 06/01/17 07:00 90 Simple Mask 10.00 06/01/17 07:00 110 06/01/17 04:19 20 06/01/17 04:18 20 06/01/17 03:00 109 06/01/17 03:00 97.9 109 20 163/89 (113) 95 06/01/17 02:50 95 Simple Mask 10.00 05/31/17 23:00 97.7 95 16 164/94 (117) 94 05/31/17 23:00 95 05/31/17 21:57 96 Simple Mask 8.00 05/31/17 19:00 95 Simple Mask 6.00 05/31/17 19:00 98.0 82 18 152/79 (103) 95 05/31/17 19:00 82 05/31/17 17:00 98.4 88 18 142/41 (74) 90 05/31/17 17:00 94 Simple Mask 5.00 05/31/17 15:08 97.9 83 18 140/80 (100) 98 Arterial Line Labs: Laboratory Tests Test 06/01/17 06:20 White Blood Count 13.3 TH/MM3 (4.0-11.0) Red Blood Count 4.14 MIL/MM3 (4.50-5.90) Hemoglobin 11.9 GM/DL (13.0-17.0) Hematocrit 36.1 % (39.0-51.0) Mean Corpuscular Volume 87.3 FL (80.0-100.0) Mean Corpuscular Hemoglobin 28.8 PG (27.0-34.0) Mean Corpuscular Hemoglobin Concent 33.0 % (32.0-36.0) Red Cell Distribution Width 16.9 % (11.6-17.2) Platelet Count 142 TH/MM3 (150-450) Mean Platelet Volume 7.3 FL (7.0-11.0) Neutrophils (%) (Auto) 79.2 % (16.0-70.0) Lymphocytes (%) (Auto) 10.8 % (9.0-44.0) Monocytes (%) (Auto) 9.7 % (0.0-8.0) Eosinophils (%) (Auto) 0.1 % (0.0-4.0) Basophils (%) (Auto) 0.2 % (0.0-2.0) Neutrophils # (Auto) 10.6 TH/MM3 (1.8-7.7) Lymphocytes # (Auto) 1.4 TH/MM3 (1.0-4.8) Monocytes # (Auto) 1.3 TH/MM3 (0-0.9) Eosinophils # (Auto) 0.0 TH/MM3 (0-0.4) Basophils # (Auto) 0.0 TH/MM3 (0-0.2) CBC Comment DIFF FINAL Differential Comment Blood Urea Nitrogen 29 MG/DL (7-18) Creatinine 2.44 MG/DL (0.60-1.30) Random Glucose 125 MG/DL (74-106) Calcium Level 8.8 MG/DL (8.5-10.1) Magnesium Level 2.0 MG/DL (1.5-2.5) Sodium Level 140 MEQ/L (136-145) Potassium Level 5.8 MEQ/L (3.5-5.1) Chloride Level 109 MEQ/L (98-107) Carbon Dioxide Level 24.7 MEQ/L (21.0-32.0) Anion Gap 6 MEQ/L (5-15) Estimat Glomerular Filtration Rate 33 ML/MIN (>89) Triglycerides Level 129 MG/DL (42-150) Cholesterol Level 116 MG/DL (120-200) LDL Cholesterol 50 MG/DL (0-99) HDL Cholesterol 40.2 MG/DL (40.0-60.0) Cholesterol/HDL Ratio 2.88 RATIO Result Diagram: 06/01/1761906/01/17619 (1) NSTEMI (non-ST elevated myocardial infarction) (2) S/P CABG (coronary artery bypass graft) Plan: ASA, statin , BB amiodarone and plavix pulm toileting nebs ezpap acapella eval for rehab at discharge postop EKG stable (3) Tobacco abuse Plan: smoking cessation (4) HTN (hypertension) Plan: on BB, hydralazine and norvasc ,hold meds for SBP < 150 (5) ISABELLA (acute kidney injury) Plan: creatinine stable, avoid nephrotoxics meds hyperkalemia Bumex and Kayexalate (6) TIA (transient ischemic attack) Plan: TIA, plavix and full dose ASA evidence of prior CVA Arline Finley Jun 01, 2017 15:21
[2017-06-01 15:57] LABS: BICARBONATE 26.5 MEQ/L (21.0-32.0); POTASSIUM 4.8 MEQ/L (3.5-5.1)
--- NOTE | 2017-06-01 16:14 | ECHRPT ---
Indication: CVA/TIA CONCLUSIONS Normal left ventricular size. Moderate to severe concentric left ventricular hypertrophy. The left ventricular systolic function is normal with an estimated ejection fraction in the range of 55-60%. BP: 163 / 89 HR: Rhythm: Sinus MEASUREMENTS (Male / Female) Normal Values Technical Quality:Fair M-MODE LV Diastolic Diameter MM 3.5 cm 4.2 - 5.9 / 3.9 - 5.3 cm LV Systolic Diameter MM 2.6 cm LV Ejection Fraction MM Teich 49.6 % IVS Diastolic Thickness MM 1.6 cm 0.6 - 1.0 / 0.6 - 0.9 cm LVPW Diastolic Thickness MM 1.6 cm 0.6 - 1.0 / 0.6 - 0.9 cm LV Relative Wall Thickness MM 0.9 0.24 - 0.42 / 0.22 - 0.42 RV Diastolic Diameter MM 2.0 cm DOPPLER AV Peak Velocity 136.0 cm/s AV Peak Gradient 7.4 mmHg AV Mean Gradient 4.0 mmHg AV Velocity Time Integral 16.2 cm LVOT Peak Velocity 108.0 cm/s LVOT Peak Gradient 4.7 mmHg LVOT Velocity Time Integral 16.0 cm Mitral E Point Velocity 57.8 cm/s Mitral A Point Velocity 43.4 cm/s Mitral E to A Ratio 1.3 LV E' Lateral Velocity 3.4 cm/s Mitral E to LV E' Lateral Ratio 17.0 LV E' Septal Velocity 7.1 cm/s Mitral E to LV E' Septal Ratio 8.1 TR Peak Velocity 174.0 cm/s TR Peak Gradient 12.1 mmHg FINDINGS LEFT VENTRICLE Normal left ventricular size. Moderate to severe concentric left ventricular hypertrophy. The left ventricular systolic function is normal with an estimated ejection fraction in the range of 55-60%. Chuy De La Garza MD (Electronically Signed) Final Date:01 June 2017 16:13
--- NOTE | 2017-06-01 16:31 | EKG ---
Date Performed: 05/31/2017 Time Performed: 17:25:22 PTAGE: 62 years EKG: Sinus rhythm . Lateral T wave changes are nonspecific Borderline ECG Since PREVIOUS TRACING , no significant change noted PREVIOUS TRACIN05/31/2017 05.39 DOCTOR: Kashmir Waldron Interpretating Date/Time 06/01/2017 16:30:38
--- NOTE | 2017-06-01 17:23 | HHI.CCPN ---
Subjective Remarks/Hospital Course 05/31: 62-year-old male with a medical history significant for hypertension, coronary artery disease, tobacco abuse, crack cocaine abuse who was admitted with a non-ST elevation SC and underwent cardiac catheterization with subsequent evaluation by CT surgery and underwent two-vessel CABG with AGUILAR to LAD and SVG to OM on 05/30/[address] Casas, tolerated procedure well was subsequently extubated and then transferred out of ICU today. This afternoon he developed speech difficulty with severe right sided weakness while ambulating. A stroke alert was called. Head CT was negative for any bleed. He was subsequently transferred to CVICU. Critical care consult was requested by Dr. Casas for stroke alert. I evaluated the patient following his arrival to the ICU. His symptoms had already started resolving with improvement in his right sided weakness as well as speech at the time of my evaluation. He did not appear to be in any acute distress. I also discussed the case with Dr. Beck from neurology who was present in the ICU at the time. Patient was complaining of some chest wall pain following his surgery otherwise not in any acute distress. He still felt that his speech was off. 06/01: Resting in bed this morning at the time of my evaluation slightly tachypneic on Ventimask. Knows he is in the hospital. Following commands. Complaining of minimal shortness of breath. Objective Vital Signs Date Time Temp Pulse Resp B/P (MAP) Pulse Ox O2 Delivery O2 Flow Rate FiO2 06/01/17 15:00 101 06/01/17 15:00 98.9 18 152/87 (108) 94 06/01/17 07:29 Simple Mask 10.00 05/31/17 08:51 50 Intake and Output 06/01/17 06/01/17 06/02/17 08:00 16:00 00:00 Intake Total 100 ml Output Total 720 ml Balance -620 ml Result Diagram: 06/01/17 0620 06/01/17 1510 Imaging Last 48 hours Impressions Chest X-Ray 05/31/17 0500 Signed Impressions: Service Date/Time: Wednesday, May 31, 2017 04:40 - CONCLUSION: 1. Interval extubation and removal of nasogastric tube. 2. Interval removal of mediastinal chest tube with no pneumothorax. Ty Conley MD Head CT 05/31/17 0000 Signed Impressions: Service Date/Time: Wednesday, May 31, 2017 16:31 - CONCLUSION: 1. 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 2. Possible punctate lacunar type infarct in the posterior limb of left internal capsule. Nothing acute 3. Small retention cyst left maxillary antrum. Kiran Acosta MD Chest X-Ray 05/30/17 0000 Signed Impressions: Service Date/Time: Tuesday, May 30, 2017 17:20 - CONCLUSION: 1. Mild cardiomegaly. 2. Perihilar atelectatic changes bilaterally. 3. Multiple tubes and lines are in good positions. Kodak Reardon MD Objective Remarks HEENT/Neuro: No pallor or icterus, tongue moist, CHANNING, Awake alert oriented 3 , speech appears normal, nonfocal grossly, moving all 4 extremities with grade 5 power in both upper and lower extremities. No pronator drift. DTR symmetric bilaterally. Plantars equivocal Neck: No JVD Chest/pulmonary: NATIVIDAD dressing over sternotomy site noted. Mediastinal/ pleural drain in place with serosanguineous drainage. Air entry decreased bilaterally at bases, scattered rhonchi bilaterally, no wheezing Cardiovascular: S1-S2 regular no gallop or murmur GI/abdomen: Soft, nontender, bowel sounds present Extremities: Warm bilaterally, no edema A/P Assessment and Plan 62-year-old male with: Stroke alert CAD status post non-STEMI with multivessel CAD Status post CABG 05/30 Hypertension Plan: Neuro: Follow neuro checks per ICU protocol. Patient has been evaluated by neurology. Head CT negative for bleed. On Plavix. Aspirin. Cardiovascular: Continue antihypertensives. Hold antihypertensives for systolic blood pressure less than 150 mmHg in view of stroke. Aspirin/Plavix. Follow chest tube/mediastinal drains. CT surgery following for status post CABG. Pulmonary: Supplemental O2, broncho-dilators, pulmonary toilet. GI/liver: Swallow eval. Advance by mouth diet per CT surgery recommendations. Renal/: Strict intake output, monitor and replete elect lites, follow BUN/ creatinine. Lasix 80 mg IV given this morning to mobilize fluid. Repeat BMP later for hyperkalemia follow-up. Kayexalate 30 g by mouth every 2 hourly 3 doses. ID: No antibiotics at this time Heme: Follow CBC Endocrine: SSI for glycemic control as needed Prophylaxis: SCDs, Lovenox when okay with CT surgery. discussed with ICU nursing staff. Greg Amato MD Jun 01, 2017 17:23
--- NOTE | 2017-06-01 19:01 | PD.CONS ---
HPI Consult Requested By Reason for Consult Acute on probable chronic kidney disease. Primary Care Physician Unknown History of Present Illness This patient is a 62-year-old male with a history of noncompliance with medical instruction, previous crack usage, hypertension, coronary disease with previous stent and now status post 2 vessel CABG May 27, 2017. Patient initially presented to this institution on May 26 with chest pain subsequently diagnosed as having non-ST SD. On presentation creatinine level was noted to be 2.4. Prior to this back in April 08, 2017 creatinine level was 1.97. Patient transferred back to the ICU after apparently having TIA May 31. Creatinine level for his hospital course improved slightly to 1.93 May 29 and has now worsened again on day of consultation to a level 2.52. Patient appears to be a very poor historian and somewhat noncooperative during visit. Review of Systems ROS Limitations: Poor Historian Endocrine: DENIES: Heat/cold intolerance, Polydipsia, Polyuria, Polyphagia Respiratory: COMPLAINS OF: Shortness of breath, DENIES: Apneas, Cough, Snoring , Wheezing, Hemoptysis, Sputum production Cardiovascular: DENIES: Chest pain, Palpitations, Syncope, Dyspnea on Exertion , PND, Lower Extremity Edema, Orthopnea, Claudication Gastrointestinal: DENIES: Abdominal pain, Black stools, Bloody stools, Constipation, Diarrhea, Nausea, Vomiting, Difficulty Swallowing, Anorexia Genitourinary: COMPLAINS OF: Urinary frequency, DENIES: Sexual dysfunction, Urinary incontinence, Urgency, Hematuria, Dysuria, Nocturia Musculoskeletal: COMPLAINS OF: Muscle aches, DENIES: Joint pain, Stiffness, Joint Swelling, Back pain, Neck pain Past Family Social History Allergies: Coded Allergies: No Known Allergies (Verified Allergy, Unknown, 05/26/17) morphine (Verified Adverse Reaction, Intermediate, Confusion, 05/30/17) Past Medical History Hypertension Coronary disease Probable chronic kidney disease given elevated creatinine level in the past and noncompliance. Unspecified prostate problems. Past Surgical History Status post CABG 2 this admission. PTCA. Reported Medications Reported Meds & Active Scripts Active Reported Effient (Prasugrel) 10 Mg Tab 10 Mg PO DAILY Atorvastatin (Atorvastatin Calcium) 10 Mg Tab 10 Mg PO HS Citalopram (Citalopram Hydrobromide) 20 Mg Tab 20 Mg PO DAILY Hydrochlorothiazide 25 Mg Tab 25 Mg PO DAILY Atenolol 50 Mg Tab 50 Mg PO BID Tamsulosin (Tamsulosin HCl) 0.4 Mg Cap 0.4 Mg PO HS [Blood Pressure Med] Active Ordered Medications Current Medications Aspirin (Aspirin Chew) 162 mg ONCE ONCE PO Last administered on 05/26/17 19: 12; Start 05/26/17 at 18:45; Stop 05/26/17 at 18:46; Status DC Sodium Chloride (NS Flush) 2 ml UNSCH PRN IVF FLUSH AFTER USING IV ACCESS; Start 05/26/17 at 18:45; Stop 05/26/17 at 23:36; Status DC Heparin Sodium (Porcine) (Heparin Inj) 4,000 units ONCE ONCE IV PUSH Last administered on 05/26/17 20:50; Start 05/26/17 at 20:30; Stop 05/26/17 at 20:31 ; Status DC Heparin Sodium (Porcine) (Heparin Inj) 5,000 units UNSCH PRN IV PUSH APTT LESS THAN 25; Start 05/27/17 at 02:30; Stop 05/28/17 at 18:10; Status DC Heparin Sodium (Porcine) (Heparin Inj) 2,500 units UNSCH PRN IV PUSH APTT 25 TO 39; Start 05/27/17 at 02:30; Stop 05/28/17 at 18:10; Status DC Heparin Sodium/ Dextrose 250 ml @ 10 mls/hr TITRATE PRN IV Coagulation Management Last administered on 05/28/17 00:26; Start 05/26/17 at 20:30; Stop 05/28/17 at 18:10; Status DC Metoprolol Tartrate (Lopressor) 25 mg Q12HR PO ; Start 05/26/17 at 21:00; Stop 05/26/17 at 21:51; Status DC Aspirin (Ecotrin Ec) 81 mg DAILY PO Last administered on 05/31/17 09:00; Start 05/27/17 at 09:00; Stop 05/31/17 at 17:00; Status DC Pravastatin Sodium (Pravachol) 40 mg DAILY PO Last administered on 05/27/17 08 :25; Start 05/27/17 at 09:00; Stop 05/27/17 at 13:45; Status DC Nitroglycerin (Nitroglycerin 2% Oint) 0.5 inch Q6HR PRN TOPICAL CHEST PAIN; Start 05/26/17 at 20:45; Stop 05/30/17 at 16:30; Status DC Sodium Chloride 1,000 ml @ 125 mls/hr Q8H IV Last administered on 05/30/17 09 :20; Start 05/26/17 at 20:41; Stop 05/31/17 at 08:39; Status DC Sodium Chloride (NS Flush) 2 ml UNSCH PRN IV FLUSH FLUSH AFTER USING IV ACCESS ; Start 05/26/17 at 20:45; Stop 05/30/17 at 17:46; Status DC Sodium Chloride (NS Flush) 2 ml BID IV FLUSH Last administered on 05/28/17 21: 00; Start 05/26/17 at 21:00; Stop 05/30/17 at 17:46; Status DC Ondansetron HCl (Zofran Inj) 4 mg Q6H PRN IVP NAUSEA OR VOMITING; Start at 20:45; Stop 05/28/17 at 18:10; Status DC Acetaminophen (Tylenol) 650 mg Q6H PRN PO FEVER/PAIN SCALE 1 TO 2; Start at 20:45 Acetaminophen/ Hydrocodone Bitart (Tresckow 5-325 Mg) 1 tab Q4H PRN PO PAIN SCALE 3 TO 5 Last administered on 05/31/17 04:36; Start 05/26/17 at 20:45 Morphine Sulfate (Morphine Inj) 2 mg Q3H PRN IV PUSH Pain 6-10; Start 05/26/17 at 20:45; Stop 05/30/17 at 12:49; Status DC Senna/Docusate Sodium (Cira-Colace) 1 tab BID PO Last administered on 09:18; Start 05/26/17 at 21:00; Stop 05/31/17 at 08:39; Status DC Magnesium Hydroxide (Milk Of Magnesia Liq) 30 ml Q12H PRN PO Mild constipation ; Start 05/26/17 at 20:45; Stop 05/31/17 at 08:39; Status DC Sennosides (Senokot) 17.2 mg Q12H PRN PO Moderate constipation; Start 05/26/17 at 20:45; Stop 05/31/17 at 08:39; Status DC Bisacodyl (Dulcolax Supp) 10 mg DAILY PRN RECTAL SEVERE CONSITIPATION; Start 05/26/17 at 20:45; Stop 05/31/17 at 09:25; Status DC Lactulose (Lactulose Liq) 30 ml DAILY PRN PO SEVERE CONSITIPATION; Start at 20:45 Lorazepam (Ativan Inj) 1 mg Q2H PRN IV PUSH WITHDRAWAL; Start 05/26/17 at 21:45 ; Stop 05/31/17 at 08:39; Status DC Hydralazine HCl (Apresoline Inj) 10 mg ONCE ONCE IV PUSH Last administered on 05/26/17 23:30; Start 05/26/17 at 23:30; Stop 05/26/17 at 23:35; Status DC Atorvastatin Calcium (Lipitor) 10 mg HS PO Last administered on 05/27/17 01:37 ; Start 05/26/17 at 23:45; Stop 05/27/17 at 13:45; Status DC Citalopram Hydrobromide (CeleXA) 20 mg DAILY PO Last administered on 06/01/17 10:15; Start 05/27/17 at 09:00 Tamsulosin HCl (Flomax) 0.4 mg HS PO Last administered on 05/31/17 20:41; Start 05/26/17 at 23:45 Metoprolol Tartrate (Lopressor) 12.5 mg Q12HR PO Last administered on 08:42; Start 05/27/17 at 09:00; Stop 05/28/17 at 18:12; Status DC Miscellaneous (Pill Splitter) 1 ea UNSCH PRN OTHER SEE LABEL COMMENTS; Start 05/27/17 at 02:00 Atorvastatin Calcium (Lipitor) 40 mg HS PO Last administered on 05/27/17 21:59 ; Start 05/27/17 at 21:00; Stop 05/28/17 at 18:12; Status DC Hydralazine HCl (Apresoline) 25 mg Q8HR PO Last administered on 05/31/17 22:11 ; Start 05/28/17 at 14:00 Mirtazapine (Remeron) 15 mg HS PO Last administered on 05/31/17 20:41; Start 05/28/17 at 21:00 Heparin Sodium/ Sodium Chloride 1,000 ml @ As Directed STK-MED ONCE .ROUTE ; Start 05/28/17 at 16:55; Stop 05/28/17 at 16:56; Status DC Midazolam HCl (Versed Inj) 2 mg STK-MED ONCE .ROUTE Last administered on 17:08; Start 05/28/17 at 17:08; Stop 05/28/17 at 17:09; Status DC Fentanyl Citrate (fentaNYL INJ) 100 mcg STK-MED ONCE .ROUTE Last administered on 05/28/17 17:08; Start 05/28/17 at 17:08; Stop 05/28/17 at 17:09; Status DC Hydralazine HCl (Apresoline Inj) 20 mg STK-MED ONCE .ROUTE Last administered on 05/28/17 17:44; Start 05/28/17 at 17:44; Stop 05/28/17 at 17:45; Status DC Miscellaneous Information 1 ONCE ONCE XX ; Start 05/28/17 at 18:15; Stop at 18:16; Status DC Atropine Sulfate (Atropine Inj) 0.5 mg UNSCH PRN IV PUSH VAGAL REPONSE; Start 05/28/17 at 18:15; Stop 05/31/17 at 08:39; Status DC Ondansetron HCl (Zofran Inj) 4 mg Q4H PRN IV PUSH NAUSEA; Start 05/28/17 at 18: 15; Stop 05/31/17 at 08:39; Status DC Isosorbide Mononitrate (Imdur) 30 mg DAILY@07 PO Last administered on 09:20; Start 05/29/17 at 07:00; Stop 05/31/17 at 08:39; Status DC Atorvastatin Calcium (Lipitor) 80 mg HS PO Last administered on 05/31/17 20:42 ; Start 05/28/17 at 21:00 Metoprolol Tartrate (Lopressor) 25 mg Q12HR PO Last administered on 05/31/17 20:42; Start 05/28/17 at 21:00 Heparin Sodium/ Dextrose 250 ml @ 10 mls/hr TITRATE PRN IV Coagulation Management Last administered on 05/29/17 08:28; Start 05/28/17 at 22:00; Stop 05/30/17 at 16:30; Status DC Iohexol (OMNIPAQUE 350 INJ (Bulk Filler)) 100 ml STK-MED ONCE OTHER ; Start at 16:45; Stop 05/29/17 at 11:11; Status DC Sodium Chloride (NS Flush) 2 ml BID IV FLUSH ; Start 05/29/17 at 21:00; Stop at 21:00; Status DC Sodium Chloride (NS Flush) 2 ml UNSCH PRN IV FLUSH FLUSH AFTER USING IV ACCESS ; Start 05/29/17 at 12:00; Stop 05/29/17 at 12:18; Status DC Papaverine HCl 60 mg/Nitroglycerin 100 mcg/Diltiazem HCl 100 mg/Sodium Chloride 100 ml @ 0 mls/hr SKOOG OPERATOR IRRIGATION Last administered on 05/30/17 14:10; Start 05/29/17 at 12:00; Stop 05/31/17 at 08:39; Status DC Cefazolin Sodium 500 mg/Sodium Chloride 505 ml @ 0 mls/hr SKOOG OPERATOR IRRIGATION Last administered on 05/30/17 15:16; Start 05/29/17 at 12:00; Stop 05/31/17 at 08:39; Status DC Cefazolin Sodium/ Dextrose 50 ml @ 150 mls/hr SKOOG OPERATOR IV ; Start 05/29/17 at 12:00; Stop 05/31/17 at 08:39; Status DC Metoprolol Tartrate (Lopressor) 12.5 mg SKOOG OPERATOR PO Last administered on 06:22; Start 05/29/17 at 12:00; Stop 05/31/17 at 08:39; Status DC Chlorhexidine Gluconate (Hibiclens 4% Top Soln) 1 applic SKOOG OPERATOR TOPICAL ; Start 05/29/17 at 12:00; Stop 05/31/17 at 08:39; Status DC Insulin Human Regular 100 units/ Sodium Chloride 100 ml @ 3 mls/hr TITRATE PRN IV for blood glucose control Last administered on 05/30/17 17:36; Start at 12:00; Stop 05/31/17 at 08:39; Status DC Dextrose (D50w (Vial) Inj) 50 ml UNSCH PRN IV PUSH HYPOGLYCEMIA-SEE COMMENTS; Start 05/29/17 at 12:00; Stop 05/31/17 at 08:39; Status DC Lactated Ringer's 1,000 ml @ 30 mls/hr Q24H PRN IV SEE LABEL COMMENTS; Start 05/30/17 at 01:00; Stop 05/30/17 at 16:30; Status DC Sodium Chloride 500 ml @ 30 mls/hr [id number] PRN IV SEE LABEL COMMENTS; Start at 01:00; Stop 05/31/17 at 08:39; Status DC Povidone Iodine (Betadine 5% Antisepsis Kit) 1 applic SKOOG OPERATOR PRN EACH NARE SEE LABEL COMMENTS; Start 05/30/17 at 01:00; Stop 05/31/17 at 08:39; Status DC Chlorhexidine Gluconate (Chlorhexidine 2% Cloth) 3 pack SKOOG OPERATOR PRN TOPICAL SEE LABEL COMMENTS; Start 05/30/17 at 01:00; Stop 05/31/17 at 08:39; Status DC Vancomycin HCl (Vancomycin Inj) 4,000 mg STK-MED ONCE .ROUTE Last administered on 05/30/17 13:40; Start 05/30/17 at 11:47; Stop 05/31/17 at 08:39; Status DC Cefazolin Sodium/ Dextrose 50 ml @ As Directed STK-MED ONCE .ROUTE Last administered on 05/30/17 13:00; Start 05/30/17 at 11:47; Stop 05/31/17 at 08:39 ; Status DC Methylprednisolone Sodium Succinate (SoluMEDROL INJ) 125 mg STK-MED ONCE .ROUTE Last administered on 05/30/17 13:05; Start 05/30/17 at 11:47; Stop 05/31/17 at 08:39; Status DC Acetaminophen 100 ml @ As Directed STK-MED ONCE IV ; Start 05/30/17 at 11:47; Stop 05/30/17 at 11:48; Status DC Dexmedetomidine HCl (Precedex Inj) 200 mcg STK-MED ONCE .ROUTE ; Start 05/30/17 at 11:48; Stop 05/31/17 at 08:39; Status DC Multi-Ingred Electrol/Mineral Irrig 2,000 ml @ As Directed STK-MED ONCE .ROUTE ; Start 05/30/17 at 12:30; Stop 05/31/17 at 08:39; Status DC Albumin Human 50 ml @ As Directed STK-MED ONCE IV ; Start 05/30/17 at 12:30; Stop 05/30/17 at 12:31; Status DC Mannitol 100 ml @ As Directed STK-MED ONCE .ROUTE ; Start 05/30/17 at 12:31; Stop 05/31/17 at 08:39; Status DC Sodium Bicarbonate 50 ml @ As Directed STK-MED ONCE .ROUTE ; Start 05/30/17 at 12:31; Stop 05/31/17 at 08:39; Status DC Heparin Sodium (Porcine) (Heparin Inj) 10,000 units STK-MED ONCE .ROUTE ; Start 05/30/17 at 12:32; Stop 05/31/17 at 08:40; Status DC Calcium Chloride (Calcium Chloride Inj) 1 gm STK-MED ONCE .ROUTE ; Start at 12:32; Stop 05/31/17 at 08:40; Status DC Potassium Chloride (KCl Inj) 4 meq STK-MED ONCE .ROUTE ; Start 05/30/17 at 12:32 ; Stop 05/31/17 at 08:40; Status DC Sugammadex Sodium (Bridion Inj) 200 mg STK-MED ONCE IV PUSH ; Start 05/30/17 at 16:15; Stop 05/31/17 at 08:40; Status DC Clevidipine 50 ml @ As Directed STK-MED ONCE .ROUTE ; Start 05/30/17 at 16:16; Stop 05/31/17 at 08:40; Status DC Cefazolin Sodium (Ancef Inj) 1,000 mg STK-MED ONCE .ROUTE Last administered on 05/30/17 14:30; Start 05/30/17 at 16:22; Stop 05/31/17 at 08:40; Status DC Sodium Chloride (NS Flush) 2 ml BID IV FLUSH Last administered on 06/01/17 10: 23; Start 05/30/17 at 21:00 Sodium Chloride (NS Flush) 2 ml UNSCH PRN IV FLUSH FLUSH AFTER USING IV ACCESS ; Start 05/30/17 at 16:30 Dexmedetomidine HCl 200 mcg/ Sodium Chloride 52 ml @ 4.65 mls/hr TITRATE PRN IV SEDATION Last administered on 05/30/17 19:00; Start 05/30/17 at 16:30; Stop 05/31/17 at 08:40; Status DC Clevidipine 50 ml @ 2 mls/hr TITRATE PRN IV Maintain BP < 140/90 mmHg Last administered on 05/31/17 06:35; Start 05/30/17 at 16:30; Stop 05/31/17 at 08:40 ; Status DC Albumin Human 250 ml @ 250 mls/hr UNSCH PRN IV SEE LABEL COMMENTS; Start 05/30 at 16:30; Stop 05/31/17 at 08:40; Status DC Lactated Ringer's 500 ml @ 500 mls/hr Q1H PRN IV SEE LABEL COMMENTS; Start 05/30/17 at 16:25; Stop 05/31/17 at 08:40; Status DC Miscellaneous Information (Post-op Orders (for Pharmacy)) STAT ONCE OTHER ; Start 05/30/17 at 16:30; Stop 05/30/17 at 17:12; Status DC Cefazolin Sodium 1000 mg/Sodium Chloride 100 ml @ 200 mls/hr Q8H IV Last administered on 06/01/17 06:00; Start 05/30/17 at 22:00; Stop 06/01/17 at 06:29 ; Status DC Pantoprazole Sodium (Protonix) 40 mg DAILY@06 PO Last administered on 05:58; Start 05/31/17 at 06:00 Amiodarone HCl (Cordarone) 200 mg Q12HR PO Last administered on 06/01/17 10:15 ; Start 05/30/17 at 21:00 Acetaminophen (Tylenol) 650 mg Q4H PRN PO TEMPERATURE > 101 F; Start 05/30/17 at 16:30 Acetaminophen (Tylenol Supp) 650 mg Q4H PRN RECTAL TEMPERATURE > 101 F; Start 05/30/17 at 16:30; Stop 05/31/17 at 08:40; Status DC Acetaminophen 100 ml @ 400 mls/hr Q6H IV Last administered on 05/31/17 10:26 ; Start 05/30/17 at 17:00; Stop 05/31/17 at 11:14; Status DC Fentanyl Citrate (fentaNYL INJ) 25 mcg Q1H PRN IV PUSH BREAKTHROUGH PAIN Last administered on 06/01/17 01:58; Start 05/30/17 at 16:30; Stop 06/01/17 at 15:24 ; Status DC Ondansetron HCl (Zofran Inj) 4 mg Q6H PRN IV PUSH NAUSEA OR VOMITING; Start at 16:30 Hydralazine HCl (Apresoline Inj) 10 mg Q4H PRN IV PUSH SEE LABEL COMMENTS Last administered on 06/01/17 03:44; Start 05/30/17 at 16:30 Metoprolol Tartrate (Lopressor Inj) 2.5 mg Q1H PRN IV PUSH SEE LABEL COMMENTS; Start 05/30/17 at 16:30; Stop 05/31/17 at 08:40; Status DC Potassium Chloride 100 ml @ 50 mls/hr UNSCH PRN IV SEE LABEL COMMENTS Last administered on 05/30/17 19:41; Start 05/30/17 at 16:30; Stop 05/30/17 at 19:42 ; Status DC Potassium Chloride 100 ml @ 50 mls/hr UNSCH PRN IV SEE LABEL COMMENTS; Start 05/30/17 at 16:30; Stop 05/31/17 at 08:40; Status DC Potassium Chloride 100 ml @ 50 mls/hr UNSCH PRN IV SEE LABEL COMMENTS; Start 05/30/17 at 16:30; Stop 05/31/17 at 08:40; Status DC Potassium Chloride (KCl) 20 meq UNSCH PRN PO SEE LABEL COMMENTS; Start at 16:30; Stop 05/31/17 at 08:40; Status DC Potassium Chloride (KCl) 40 meq UNSCH PRN PO SEE LABEL COMMENTS; Start at 16:30; Stop 05/31/17 at 08:40; Status DC Magnesium Sulfate 2 gm/Sodium Chloride 104 ml @ 100 mls/hr UNSCH PRN IV SEE LABEL COMMENTS; Start 05/30/17 at 16:30; Stop 05/31/17 at 08:40; Status DC Magnesium Sulfate 2 gm/Sodium Chloride 104 ml @ 50 mls/hr UNSCH PRN IV SEE LABEL COMMENTS; Start 05/30/17 at 16:30; Stop 05/31/17 at 08:40; Status DC Calcium Chloride 1 gm/Sodium Chloride 110 ml @ 100 mls/hr UNSCH PRN IV SEE LABEL COMMENTS Last administered on 05/30/17 17:43; Start 05/30/17 at 16:30; Stop 05/30/17 at 17:43; Status DC Calcium Chloride (Calcium Chloride Inj) 0.5 gm UNSCH PRN IV PUSH SEE LABEL COMMENTS; Start 05/30/17 at 16:30; Stop 05/31/17 at 08:40; Status DC Insulin Human Regular 100 units/ Sodium Chloride 100 ml @ 3 mls/hr TITRATE PRN IV for blood glucose control; Start 05/30/17 at 16:30; Stop 05/31/17 at 08:40; Status DC Dextrose (D50w (Vial) Inj) 50 ml UNSCH PRN IV PUSH HYPOGLYCEMIA-SEE COMMENTS; Start 05/30/17 at 16:30; Stop 05/31/17 at 08:40; Status DC Sodium Bicarbonate (Sodium Bicarbonate 8.4% Inj) 50 meq UNSCH PRN IV PUSH SEE LABEL COMMENTS; Start 05/30/17 at 16:30; Stop 05/31/17 at 08:40; Status DC Sodium Bicarbonate (Sodium Bicarbonate 8.4% Inj) 100 meq UNSCH PRN IV PUSH SEE LABEL COMMENTS; Start 05/30/17 at 16:30; Stop 05/31/17 at 08:40; Status DC Albuterol/ Ipratropium (Duoneb Neb) 1 ampule Q6HR NEB NEB Last administered on 05/31/17 08:51; Start 05/30/17 at 22:00; Stop 05/31/17 at 09:23; Status DC Albuterol/ Ipratropium (Duoneb Neb) 1 ampule Q2HR NEB PRN NEB WHEEZING; Start 05/30/17 at 16:30 Racepinephrine (Racepinephrine 2.25% Neb) 0.5 ml UNSCH X1 PRN NEB STRIDOR; Start 05/30/17 at 16:30; Stop 05/31/17 at 08:40; Status DC Meperidine HCl (Demerol Inj) 25 mg STK-MED ONCE .ROUTE ; Start 05/30/17 at 20:08 ; Stop 05/31/17 at 08:40; Status DC Meperidine HCl (Demerol Inj) 12.5 mg NOW ONCE IV Last administered on t 20:18; Start 05/30/17 at 20:30; Stop 05/31/17 at 08:40; Status DC Calcium Chloride 1 gm/Sodium Chloride 110 ml @ 110 mls/hr UNSCH PRN IV SEE LABEL COMMENTS Last administered on 05/31/17 00:38; Start 05/30/17 at 23:45; Stop 05/31/17 at 08:40; Status DC Potassium Chloride 100 ml @ 50 mls/hr UNSCH PRN IV SEE LABEL COMMENTS Last administered on 05/31/17 01:10; Start 05/30/17 at 23:45; Stop 05/31/17 at 08:40 ; Status DC Amlodipine Besylate (Norvasc) 5 mg ONCE ONCE PO Last administered on 09:04; Start 05/31/17 at 08:45; Stop 05/31/17 at 08:46; Status DC Albuterol/ Ipratropium (Duoneb Neb) 1 ampule Q6HR WHILE AWAKE NEB NEB Last administered on 06/01/17 12:56; Start 05/31/17 at 14:00; Stop 06/02/17 at 13:59 Docusate Sodium (Colace) 100 mg BID PO Last administered on 06/01/17 10:18; Start 05/31/17 at 21:00 Clopidogrel Bisulfate (Plavix) 75 mg DAILY PO Last administered on 06/01/17 10 :18; Start 05/31/17 at 09:30 Multivitamins/ Minerals Therapeutic (Theragran M Tab) 1 tab DAILY PO Last administered on 06/01/17 10:18; Start 05/31/17 at 09:00 Bisacodyl (Dulcolax Supp) 10 mg UNSCH PRN RECTAL SEE LABEL COMMENTS; Start 05/31/17 at 08:45 Polyethylene Glycol (Miralax) 17 gm DAILY PO ; Start 06/01/17 at 09:00 Sennosides (Senokot) 8.6 mg HS PO Last administered on 05/31/17 20:41; Start 05/31/17 at 21:00 Sodium Biphosphate/ Sodium Phosphate (Fleets Enema (Adult)) 118 ml UNSCH PRN RECTAL SEE LABEL COMMENTS; Start 05/31/17 at 08:45 Insulin Detemir (Levemir Inj) 5 units ONCE ONCE SQ Last administered on 09:26; Start 05/31/17 at 08:45; Stop 05/31/17 at 09:23; Status DC Insulin Aspart (NovoLOG SUPPLEMENTAL SCALE) 1 02,06,10,14,18,22 SQ Last administered on 05/31/17 14:40; Start 05/31/17 at 10:00; Stop 05/31/17 at 17:02 ; Status DC Dextrose (D50w (Vial) Inj) 50 ml UNSCH PRN IV PUSH HYPOGLYCEMIA-SEE COMMENTS; Start 05/31/17 at 08:45; Stop 05/31/17 at 17:00; Status DC Glucagon (Glucagon Inj) 1 mg UNSCH PRN OTHER HYPOGLYCEMIA-SEE COMMENTS; Start 05/31/17 at 08:45; Stop 05/31/17 at 17:00; Status DC Insulin Aspart (NovoLOG SUPPLEMENTAL SCALE) 1 ACHS SLIDING SCALE SQ ; Start at 12:00; Stop 06/01/17 at 12:00; Status DC Acetaminophen/ Hydrocodone Bitart (Tresckow 5-325 Mg) 2 tab Q4H PRN PO PAIN SCALE 6 TO 10 Last administered on 06/01/17 02:45; Start 05/31/17 at 09:15; Stop 06/01/17 at 15:24; Status DC Sodium Chloride (NS Flush) 2 ml BID IV FLUSH ; Start 05/31/17 at 21:00; Stop at 21:00; Status DC Sodium Chloride (NS Flush) 2 ml UNSCH PRN IV FLUSH FLUSH AFTER USING IV ACCESS ; Start 05/31/17 at 17:00; Stop 05/31/17 at 17:00; Status DC Aspirin (Aspirin) 325 mg DAILY PO Last administered on 06/01/17 10:17; Start 05/31/17 at 17:00 Insulin Aspart (NovoLOG SUPPLEMENTAL SCALE) 1 ACHS SQ ; Start 05/31/17 at 17:00 Dextrose (D50w (Vial) Inj) 50 ml UNSCH PRN IV PUSH HYPOGLYCEMIA-SEE COMMENTS; Start 05/31/17 at 17:00 Glucagon (Glucagon Inj) 1 mg UNSCH PRN OTHER HYPOGLYCEMIA-SEE COMMENTS; Start 05/31/17 at 17:00 Lorazepam (Ativan Inj) 2 mg NOW IV Last administered on 06/01/17 03:11; Start 06/01/17 at 03:15; Stop 06/01/17 at 04:00; Status DC Diphenhydramine HCl (Benadryl Inj) 50 mg NOW IV ; Start 06/01/17 at 04:00; Stop 06/01/17 at 05:30; Status DC Diphenhydramine HCl (Benadryl Inj) 50 mg STK-MED ONCE .ROUTE ; Start 06/01/17 at 03:59; Stop 06/01/17 at 04:00; Status DC Haloperidol Lactate (Haldol Inj) 5 mg NOW IV Last administered on 06/01/17 04: 16; Start 06/01/17 at 04:15; Stop 06/01/17 at 05:30; Status DC Furosemide (Lasix Inj) 80 mg ONCE ONCE IV PUSH Last administered on 06/01/17 10:19; Start 06/01/17 at 09:15; Stop 06/01/17 at 09:16; Status DC Sodium Polystyrene Sulfonate (Kayexalate Liq) 30 gm Q2HR PO Last administered on 06/01/17 17:05; Start 06/01/17 at 10:00; Stop 06/01/17 at 17:00; Status DC Furosemide (Lasix Inj) 80 mg ONCE ONCE IV PUSH ; Start 06/01/17 at 17:30; Stop 06/01/17 at 18:05; Status DC Family History History of CKD. Social History History of tobacco use, alcohol use ongoing. Denying current crack usage with discontinuance about 5 years ago by history. Physical Exam Vital Signs Vital Signs Date Time Temp Pulse Resp B/P (MAP) Pulse Ox O2 Delivery O2 Flow Rate FiO2 06/01/17 15:00 101 06/01/17 15:00 98.9 101 18 152/87 (108) 94 06/01/17 11:20 98.7 94 20 150/77 (101) 95 06/01/17 11:20 94 06/01/17 07:29 94 Simple Mask 10.00 06/01/17 07:00 99.0 101 20 149/87 (107) 94 06/01/17 07:00 90 Simple Mask 10.00 06/01/17 07:00 110 06/01/17 04:19 20 06/01/17 04:18 20 06/01/17 03:00 109 06/01/17 03:00 97.9 109 20 163/89 (113) 95 06/01/17 02:50 95 Simple Mask 10.00 05/31/17 23:00 97.7 95 16 164/94 (117) 94 05/31/17 23:00 95 05/31/17 21:57 96 Simple Mask 8.00 05/31/17 19:00 95 Simple Mask 6.00 05/31/17 19:00 98.0 82 18 152/79 (103) 95 05/31/17 19:00 82 Physical Exam GENERAL: Gen. examination revealed today elderly-appearing male lying in bed with an oxygen mask in place. SKIN: Warm and dry. HEAD: Normocephalic. EYES: No scleral icterus. No injection or drainage. NECK: Supple, trachea midline. No JVD or lymphadenopathy. CARDIOVASCULAR: Regular rate and rhythm without murmurs, gallops, or rubs. RESPIRATORY: Breath sounds equal bilaterally. No accessory muscle use. GASTROINTESTINAL: Abdomen soft, non-tender, appears distended but nontender. MUSCULOSKELETAL: No cyanosis, or edema. BACK: Nontender without obvious deformity. No CVA tenderness. Laboratory Laboratory Tests Test 06/01/17 06:20 06/01/17 15:10 White Blood Count 13.3 Red Blood Count 4.14 Hemoglobin 11.9 Hematocrit 36.1 Mean Corpuscular Volume 87.3 Mean Corpuscular Hemoglobin 28.8 Mean Corpuscular Hemoglobin Concent 33.0 Red Cell Distribution Width 16.9 Platelet Count 142 Mean Platelet Volume 7.3 Neutrophils (%) (Auto) 79.2 Lymphocytes (%) (Auto) 10.8 Monocytes (%) (Auto) 9.7 Eosinophils (%) (Auto) 0.1 Basophils (%) (Auto) 0.2 Neutrophils # (Auto) 10.6 Lymphocytes # (Auto) 1.4 Monocytes # (Auto) 1.3 Eosinophils # (Auto) 0.0 Basophils # (Auto) 0.0 CBC Comment DIFF FINAL Differential Comment Blood Urea Nitrogen 29 29 Creatinine 2.44 2.52 Random Glucose 125 119 Calcium Level 8.8 8.9 Magnesium Level 2.0 Sodium Level 140 139 Potassium Level 5.8 4.8 Chloride Level 109 106 Carbon Dioxide Level 24.7 26.5 Anion Gap 6 7 Estimat Glomerular Filtration Rate 33 31 Triglycerides Level 129 Cholesterol Level 116 LDL Cholesterol 50 HDL Cholesterol 40.2 Cholesterol/HDL Ratio 2.88 Result Diagram: 06/01/17 0620 06/01/17 1510 Imaging Last 48 hours Impressions Chest X-Ray 06/01/17 0000 Signed Impressions: Service Date/Time: May 09:05 - CONCLUSION: 1. Stable tubes and lines, as above. 2. Mild bibasilar airspace disease, likely atelectasis. Mil Vences MD Chest X-Ray 05/31/17 0500 Signed Impressions: Service Date/Time: Wednesday, May 31, 2017 04:40 - CONCLUSION: 1. Interval extubation and removal of nasogastric tube. 2. Interval removal of mediastinal chest tube with no pneumothorax. Ty Conley MD Head CT 05/31/17 0000 Signed Impressions: Service Date/Time: Wednesday, May 31, 2017 16:31 - CONCLUSION: 1. 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 2. Possible punctate lacunar type infarct in the posterior limb of left internal capsule. Nothing acute 3. Small retention cyst left maxillary antrum. Kiran Acosta MD Assessment and Plan Problem List: (1) Acute renal failure with acute renal cortical necrosis superimposed on stage 3 chronic kidney disease ICD Codes: N17.1 - Acute kidney failure with acute cortical necrosis; N18.3 - Chronic kidney disease, stage 3 (moderate) Status: Acute Plan: Patient may have sustained acute kidney injury related to recent CABG. Also in differential possible acute renal insufficiency related to atheroembolic disease. Patient apparently did sustain a TIA also. Bladder outlet obstruction needs to be checked for in view of patient's symptoms of urinary frequency and reduced urine output. Have requested a bladder scan however the patient indicated to me that he would refuse Jacome catheter placement despite my counseling regarding need for same if there is evidence of obstruction and the consequences of not putting a Jacome in. Hopefully he will change his mind. Laboratory studies as ordered including urine for eosinophils, CK level, serum complements. Also renal ultrasound. (2) Benign hypertension with chronic kidney disease, stage III ICD Codes: I12.9 - Hypertensive chronic kidney disease with stage 1 through stage 4 chronic kidney disease, or unspecified chronic kidney disease; N18.3 - Chronic kidney disease, stage 3 (moderate) Status: Chronic Plan: Suspect patient does have significant chronic kidney disease given his history of hypertension and apparent noncompliance with medical follow-up and medications. High risk for development of nephrosclerosis. Unfortunately patient appears to have poor insight but he was counseled regarding need for compliance. Medications should be adjusted for the patient's estimated GFR if clinically indicated. Avoid agents with significant potential for nephrotoxicity possible including NSAIDs for analgesia, iodine contrast agents. Gadolinium is contraindicated if the GFR is below 30. (3) S/P CABG x 2 ICD Codes: Z95.1 - Presence of aortocoronary bypass graft Status: Acute (4) Noncompliance with medication regimen ICD Codes: Z91.14 - Patient's other noncompliance with medication regimen Status: Chronic Plan: As above (5) HTN (hypertension) ICD Codes: I10 - Essential (primary) hypertension Status: Chronic Evelina Kiran MD Jun 01, 2017 19:01
[2017-06-01] MEDS: ATORVASTATIN 40 MG TAB PO SCH (21:00)
[2017-06-01] MEDS: MIRTAZAPINE 15 MG TAB PO SCH (21:00)
[2017-06-01] MEDS: SENNOSIDES 8.6 MG TAB PO SCH (21:00)
[2017-06-01] MEDS: TAMSULOSIN HCL 0.4 MG CAP PO SCH (21:00)
[2017-06-01] MEDS: HALOPERIDOL LACTATE 5 MG/ML AMP IV PRN (21:22)
--- NOTE | 2017-06-01 21:28 | HHI.PR ---
Review/Management Diagnosis TIA--exam stable Plan continue aspirin 325 mg daily Diagnosis/Plan: Subjective Subjective Comments No acute events reported Pt has been aggitated and confused He has had no recurrent stroke symptoms Active Medications Current Medications Medications (Trade) Dose Ordered Sig/Fer Route Start Time Stop Time Status Last Admin (Tylenol) 650 mg Q6H PRN PO 05/26/17 20:45 ([place] 5-325 Mg) 1 tab Q4H PRN PO 05/26/17 20:45 05/31/17 04:36 (Lactulose Liq) 30 ml DAILY PRN PO 05/26/17 20:45 (CeleXA) 20 mg DAILY PO 05/27/17 09:00 06/01/17 10:15 (Flomax) 0.4 mg HS PO 05/26/17 23:45 06/01/17 21:00 (Pill Splitter) 1 ea UNSCH PRN OTHER 05/27/17 02:00 (Apresoline) 25 mg Q8HR PO 05/28/17 14:00 05/31/17 22:11 (Remeron) 15 mg HS PO 05/28/17 21:00 06/01/17 21:00 (Lipitor) 80 mg HS PO 05/28/17 21:00 06/01/17 21:00 (Lopressor) 25 mg Q12HR PO 05/28/17 21:00 06/01/17 21:00 (NS Flush) 2 ml BID IV FLUSH 05/30/17 21:00 06/01/17 21:00 (NS Flush) 2 ml UNSCH PRN IV FLUSH 05/30/17 16:30 (Protonix) 40 mg DAILY@06 PO 05/31/17 06:00 05/31/17 05:58 (Cordarone) 200 mg Q12HR PO 05/30/17 21:00 06/01/17 21:00 (Tylenol) 650 mg Q4H PRN PO 05/30/17 16:30 (Zofran Inj) 4 mg Q6H PRN IV PUSH 05/30/17 16:30 (Apresoline Inj) 10 mg Q4H PRN IV PUSH 05/30/17 16:30 06/01/17 03:44 (Duoneb Neb) 1 ampule Q2HR NEB PRN NEB 05/30/17 16:30 (Duoneb Neb) 1 ampule Q6HR WHILE AWAKE NEB NEB 05/31/17 14:00 06/02/17 13:59 06/01/17 20:40 (Colace) 100 mg BID PO 05/31/17 21:00 06/01/17 21:00 (Plavix) 75 mg DAILY PO 05/31/17 09:30 06/01/17 10:18 (Theragran M Tab) 1 tab DAILY PO 05/31/17 09:00 06/01/17 10:18 (Dulcolax Supp) 10 mg UNSCH PRN RECTAL 05/31/17 08:45 (Miralax) 17 gm DAILY PO 06/01/17 09:00 (Senokot) 8.6 mg HS PO 05/31/17 21:00 06/01/17 21:00 (Fleets Enema (Adult)) 118 ml UNSCH PRN RECTAL 05/31/17 08:45 (Aspirin) 325 mg DAILY PO 05/31/17 17:00 06/01/17 10:17 (NovoLOG SUPPLEMENTAL SCALE) 1 ACHS SQ 05/31/17 17:00 (D50w (Vial) Inj) 50 ml UNSCH PRN IV PUSH 05/31/17 17:00 (Glucagon Inj) 1 mg UNSCH PRN OTHER 05/31/17 17:00 (Haldol Inj) 5 mg Q4H PRN IV 06/01/17 21:15 06/01/17 21:22 Allergies Allergies Coded Allergies No Known Allergies (Verified Allergy, Unknown, 05/26/17) morphine (Verified Adverse Reaction, Intermediate, Confusion, 05/30/17) Exam I&O / VS 06/01/17 06/01/17 06/02/17 15:00 23:00 07:00 Intake Total 100 ml 240 ml Output Total 790 ml Balance 100 ml -550 ml Intake Oral 240 ml IV Total 100 ml Output Urine Total 600 ml Chest Tube Drainage Total 190 ml # Bowel Movements 0 Vital Signs Date Time Temp Pulse Resp B/P (MAP) Pulse Ox O2 Delivery O2 Flow Rate FiO2 06/01/17 20:40 94 Non-Rebreather 15.00 06/01/17 15:00 101 06/01/17 15:00 98.9 101 18 152/87 (108) 94 06/01/17 11:20 98.7 94 20 150/77 (101) 95 06/01/17 11:20 94 06/01/17 07:29 94 Simple Mask 10.00 06/01/17 07:00 99.0 101 20 149/87 (107) 94 06/01/17 07:00 90 Simple Mask 10.00 06/01/17 07:00 110 06/01/17 04:19 20 06/01/17 04:18 20 06/01/17 03:00 109 06/01/17 03:00 97.9 109 20 163/89 (113) 95 06/01/17 02:50 95 Simple Mask 10.00 05/31/17 23:00 97.7 95 16 164/94 (117) 94 05/31/17 23:00 95 05/31/17 21:57 96 Simple Mask 8.00 Exam Comments alert, disoriented, speech is fluent with no sign of aphasia. He follows commands CN intact MOTOR -no focal weakness Objective Micro and Labs Laboratory Tests Test 06/01/17 06:20 06/01/17 15:10 White Blood Count 13.3 Red Blood Count 4.14 Hemoglobin 11.9 Hematocrit 36.1 Mean Corpuscular Volume 87.3 Mean Corpuscular Hemoglobin 28.8 Mean Corpuscular Hemoglobin Concent 33.0 Red Cell Distribution Width 16.9 Platelet Count 142 Mean Platelet Volume 7.3 Neutrophils (%) (Auto) 79.2 Lymphocytes (%) (Auto) 10.8 Monocytes (%) (Auto) 9.7 Eosinophils (%) (Auto) 0.1 Basophils (%) (Auto) 0.2 Neutrophils # (Auto) 10.6 Lymphocytes # (Auto) 1.4 Monocytes # (Auto) 1.3 Eosinophils # (Auto) 0.0 Basophils # (Auto) 0.0 CBC Comment DIFF FINAL Differential Comment Blood Urea Nitrogen 29 29 Creatinine 2.44 2.52 Random Glucose 125 119 Calcium Level 8.8 8.9 Magnesium Level 2.0 Sodium Level 140 139 Potassium Level 5.8 4.8 Chloride Level 109 106 Carbon Dioxide Level 24.7 26.5 Anion Gap 6 7 Estimat Glomerular Filtration Rate 33 31 Triglycerides Level 129 Cholesterol Level 116 LDL Cholesterol 50 HDL Cholesterol 40.2 Cholesterol/HDL Ratio 2.88 Nirav Beck PhD Jun 01, 2017 21:28
[2017-06-01 22:47] LABS: BACTERIA, URINE RARE /hpf; BLOOD, URINE SMALL (NEG); GLUCOSE,URINE NEG (NEG); KETONE, URINE NEG (NEG); NITRITE,URINE NEG (NEG); SQUAMOUS EPITHELIAL CELL URINE <1 /hpf (0-5); URINE COLOR LIGHT-YELLOW (YELLW/STRAW)
[2017-06-01] MEDS ORDERED: AMIODARONE INJ 150 MG in DEXTROSE 5% IN WATER 100ML INJ 100 ML IV ONE ×2 (23:39)
[2017-06-01] MEDS ORDERED: AMIODARONE 150 MG/D5W 97 ML BOLUS 10 MINUTES IV ONE ×2 (23:45)
[2017-06-01] MEDS ORDERED: METOPROLOL TARTRATE 5 MG/5 ML VIAL IV PUSH PRN (23:45)
[2017-06-02] VITALS (12 sets, daily range): BP systolic 131–171; BP diastolic 75–98; PULSE 98–137; RESP 16–20; TEMP 97.8–100.9; O2SAT 92–99
[2017-06-02] MEDS: AMIODARONE INJ 450 MG in DEXTROSE 5% IN WATE(EXCEL) INJ 241 ML IV PRN ×2
[2017-06-02] MEDS: HALOPERIDOL LACTATE 5 MG/ML AMP IV PRN (03:19)
[2017-06-02 05:03] LABS: ALT (GPT) 9 U/L (12-78); ANION GAP 8 MEQ/L (5-15); AST (GOT) 40 U/L (15-37); BICARBONATE 28.2 MEQ/L (21.0-32.0); BLOOD UREA NITROGEN 33 MG/DL (7-18); CHLORIDE 106 MEQ/L (98-107); GLOMERULAR FILTRATION RATE 29 ML/MIN (>89); SODIUM (NA) 142 MEQ/L (136-145)
[2017-06-02 05:06] LABS: ALKALINE PHOSPHATASE 62 U/L (45-117); CREATINE KINASE 875 U/L (39-308); TOTAL BILIRUBIN ADULT 0.5 MG/DL (0.2-1.0); TOTAL PROTEIN SPE 6.8 GM/DL (6.0-7.6)
[2017-06-02 05:31] LABS: BASOPHIL % 0.1 % (0.0-2.0); EOSINOPHIL % 0.1 % (0.0-4.0); HEMATOCRIT 34.2 % (39.0-51.0); HEMO FLAGS DIFF FINAL; LYMPH % 12.9 % (9.0-44.0); LYMPHOCYTE # 1.5 TH/MM3 (1.0-4.8); MEAN CELL VOLUME 86.4 FL (80.0-100.0); MEAN CORPUSCULAR HEMOGLOBIN 29.5 PG (27.0-34.0); MEAN CORPUSCULAR HGB CONC 34.2 % (32.0-36.0); MONO % 10.7 % (0.0-8.0); NEUT % 76.2 % (16.0-70.0); PLATELET COUNT 131 TH/MM3 (150-450); RED BLOOD COUNT 3.96 MIL/MM3 (4.50-5.90); RED CELL DISTRIBUTION WIDTH 16.6 % (11.6-17.2); WHITE BLOOD COUNT 11.8 TH/MM3 (4.0-11.0)
[2017-06-02] MEDS: PANTOPRAZOLE SOD 40 MG DELAYED RELEASE TAB PO SCH (06:00)
[2017-06-02] MEDS: hydrALAZINE HCL 25 MG TAB PO SCH ×3 (06:00→22:21)
--- NOTE | 2017-06-02 06:28 | RADRPT ---
EXAM DATE/TIME: 06/02/2017 05:52 [facility] COMPARISON: CHEST SINGLE AP, June 01, 2017, 9:05. INDICATIONS : Chest pain post STEMI MEDICAL HISTORY : Myocardial infarction. Hypertension SURGICAL HISTORY : CABG. Coronary artery stent. Cardiac catheterization ENCOUNTER: Subsequent ACUITY: 1 week PAIN SCORE: 7/10 LOCATION: Bilateral chest FINDINGS: Sternotomy wires, left-sided chest tube, right jugular line again noted. Cardiomegaly is present, sma ll right effusion and mild bilateral airspace disease unchanged. CONCLUSION: No significant change has occurred. Srikanth Cole MD on June 02, 2017 at 6:27 Board Certified Radiologist. This report was verified electronically.
[2017-06-02] MEDS: INSULIN ASPART SUPPLEMENTAL SCALE SQ SCH ×4 (08:00→21:00)
[2017-06-02] MEDS: SODIUM CHLORIDE 0.9% FLUSH 10 ML FLUSH IV FLUSH SCH ×2 (09:00→20:53)
[2017-06-02] MEDS: RESP: ALBUTEROL 2.5 MG/IPRATROPIUM 0.5 MG NEB (SCH) NEB (09:00)
[2017-06-02 10:09] LABS: INTERNATIONAL NORMALIZED RATIO 1.1 RATIO; PROTHROMBIN TIME - PATIENT 11.2 SEC (9.8-11.6)
[2017-06-02] MEDS ORDERED: METOPROLOL TARTRATE 25 MG TAB PO ONE (10:15)
[2017-06-02] MEDS: MULTIVITAMINS/MINERALS THERAPEUTIC TAB PO SCH (10:22)
[2017-06-02] MEDS: CITALOPRAM HYDROBROMIDE 20 MG TAB PO SCH (10:22)
[2017-06-02] MEDS: DOCUSATE SODIUM 100 MG CAP PO SCH ×2 (10:22→20:50)
[2017-06-02] MEDS: POLYETHYLENE GLYCOL 17 GM PKG PO SCH (10:22)
[2017-06-02] MEDS: FUROSEMIDE 40 MG/4 ML VIAL IV PUSH SCH (12:00)
[2017-06-02] MEDS: HEPARIN-D5W 25,000 U/250 ML 250 ML IV PRN (12:40)
--- NOTE | 2017-06-02 12:59 | HHI.NPPN ---
Subjective History of Present Illness This patient is a 62-year-old male with a history of noncompliance with medical instruction, previous crack usage, hypertension, coronary disease with previous stent and now status post 2 vessel CABG May 27, 2017. Patient initially presented to this institution on May 26 with chest pain subsequently diagnosed as having non-ST [place]. On presentation creatinine level was noted to be 2.4. Prior to this back in April 08, 2017 creatinine level was 1.97. Patient transferred back to the ICU after apparently having TIA May 31. Creatinine level for his hospital course improved slightly to 1.93 May 29 and has now worsened again on day of consultation to a level 2.52. Patient appears to be a very poor historian and somewhat noncooperative during visit. Interval History Pt on non-rebreather today. Jacome inserted last night. UOP good at 2600 Had no complaints today (Kathy Melvin) Review of Systems Respiratory Lungs: SOB (Kathy Melvin) Objective Data Data Vital Signs Date Time Temp Pulse Resp B/P (MAP) Pulse Ox O2 Delivery O2 Flow Rate FiO2 06/02/17 11:00 97.8 98 16 138/78 (98) 95 06/02/17 11:00 98 06/02/17 11:00 95 Non-Rebreather 15.00 06/02/17 09:12 92 Partial Rebreather 15.00 70 06/02/17 07:00 120 06/02/17 07:00 99 Non-Rebreather 15.00 06/02/17 07:00 98.3 120 16 171/83 (112) 99 06/02/17 03:00 124 06/02/17 03:00 98.9 137 18 164/75 (104) 97 06/02/17 03:00 99 Non-Rebreather 15.00 06/02/17 00:00 144 181/104 06/01/17 23:45 144 181/104 06/01/17 23:39 144 181/101 06/01/17 23:00 97 Non-Rebreather 15.00 06/01/17 23:00 98.8 123 20 181/94 (123) 96 06/01/17 23:00 123 06/01/17 20:40 94 Non-Rebreather 15.00 06/01/17 19:00 95 Non-Rebreather 15.00 06/01/17 19:00 129 06/01/17 19:00 99.1 129 20 174/117 (136) 95 06/01/17 15:00 101 06/01/17 15:00 98.9 101 18 152/87 (108) 94 (Kathy Melvin) -: 06/02/17 0520 06/02/17 0335 Imaging Last Impressions Chest X-Ray 06/02/17 0600 Signed Impressions: Service Date/Time: Friday, June 02, 2017 05:52 - CONCLUSION: No significant change has occurred. Srikanth Cole MD Head CT 05/31/17 0000 Signed Impressions: Service Date/Time: Wednesday, May 31, 2017 16:31 - CONCLUSION: 1. 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 2. Possible punctate lacunar type infarct in the posterior limb of left internal capsule. Nothing acute 3. Small retention cyst left maxillary antrum. Kiran Acosta MD Lower Extremity Ultrasound 05/29/17 1217 Signed Impressions: Service Date/Time: Monday, May 29, 2017 13:18 - CONCLUSION: 1. Venous mapping as above. 2. Nonvisualization of the left greater saphenous vein just above the knee peripherally. This may represent prior venous ablation. Kiran Acosta MD Carotid Artery Ultrasound 05/28/17 0000 Signed Impressions: Service Date/Time: Sunday, May 28, 2017 18:20 - CONCLUSION: Bilateral carotid bifurcation atherosclerosis, trace on the right and mild on the left. No hemodynamically significant narrowing. Maikol Monique MD Medication Review Current Medications Medications (Trade) Dose Ordered Sig/Fer Route Start Time Stop Time Status Last Admin (Tylenol) 650 mg Q6H PRN PO 05/26/17 20:45 (Lactulose Liq) 30 ml DAILY PRN PO 05/26/17 20:45 (CeleXA) 20 mg DAILY PO 05/27/17 09:00 06/02/17 10:22 (Flomax) 0.4 mg HS PO 05/26/17 23:45 06/01/17 21:00 (Pill Splitter) 1 ea UNSCH PRN OTHER 05/27/17 02:00 (Apresoline) 25 mg Q8HR PO 05/28/17 14:00 06/02/17 12:35 (Remeron) 15 mg HS PO 05/28/17 21:00 06/01/17 21:00 (Lipitor) 80 mg HS PO 05/28/17 21:00 06/01/17 21:00 (NS Flush) 2 ml BID IV FLUSH 05/30/17 21:00 06/02/17 09:00 (NS Flush) 2 ml UNSCH PRN IV FLUSH 05/30/17 16:30 (Protonix) 40 mg DAILY@06 PO 05/31/17 06:00 05/31/17 05:58 (Tylenol) 650 mg Q4H PRN PO 05/30/17 16:30 (Zofran Inj) 4 mg Q6H PRN IV PUSH 05/30/17 16:30 (Apresoline Inj) 10 mg Q4H PRN IV PUSH 05/30/17 16:30 06/01/17 23:25 (Colace) 100 mg BID PO 05/31/17 21:00 06/02/17 10:22 (Theragran M Tab) 1 tab DAILY PO 05/31/17 09:00 06/02/17 10:22 (Dulcolax Supp) 10 mg UNSCH PRN RECTAL 05/31/17 08:45 (Miralax) 17 gm DAILY PO 06/01/17 09:00 06/02/17 10:22 (Senokot) 8.6 mg HS PO 05/31/17 21:00 06/01/17 21:00 (Fleets Enema (Adult)) 118 ml UNSCH PRN RECTAL 05/31/17 08:45 (NovoLOG SUPPLEMENTAL SCALE) 1 ACHS SQ 05/31/17 17:00 (D50w (Vial) Inj) 50 ml UNSCH PRN IV PUSH 05/31/17 17:00 (Glucagon Inj) 1 mg UNSCH PRN OTHER 05/31/17 17:00 Amiodarone HCl 450 mg/Dextrose 250 ml @ 33.33 mls/ hr Q7H31M PRN IV 06/01/17 23:49 06/02/17 00:00 (Lopressor Inj) 5 mg Q5M PRN IV PUSH 06/01/17 23:45 (Lopressor) 50 mg Q12HR PO 06/02/17 21:00 (Atrovent Neb) 0.5 mg Q6HR NEB NEB 06/02/17 10:00 (Heparin Inj) 5,000 units UNSCH PRN IV PUSH 06/02/17 15:15 (Heparin Inj) 2,500 units UNSCH PRN IV PUSH 06/02/17 15:15 Heparin Sodium/ Dextrose 250 ml @ 10 mls/hr TITRATE PRN IV 06/02/17 13:00 06/02/17 12:40 (Coumadin) 5 mg DAILY@1600 PO 06/02/17 16:00 (Aspirin) 81 mg DAILY PO 06/03/17 09:00 (Lasix Inj) 40 mg DAILY IV PUSH 06/02/17 12:00 06/02/17 12:00 (Kathy Melvin) Physical Exam General Appearance: No Acute Distress, Comfortable (Kathy Melvin) Pulmonary Resp Exam: Clear Bilaterally, Breath Sounds Equal (Kathy Melvin) Cardiology CV Exam: Regular, Tachycardia (Kathy Melvin) Gastrointestinal/Abdomen GI Exam: Soft (but mildly distended) (Kathy Melvin) Integumentary Skin Exam: Clear, Warm (Kathy Melvin) Extremeties Extremities Exam: Trace Edema (hips) (Kathy Melvin) Neurologic Neuro Exam: Alert, Awake (Kathy Melvin) Psychiatric Psych Exam: Appropriate Responses (Kathy Melvin) Assessment/Plan Problem List: (1) Acute renal failure with acute renal cortical necrosis superimposed on stage 3 chronic kidney disease ICD Codes: N17.1 - Acute kidney failure with acute cortical necrosis; N18.3 - Chronic kidney disease, stage 3 (moderate) Status: Acute Plan: Patient may have sustained acute kidney injury related to recent CABG. Also in differential possible acute renal insufficiency related to atheroembolic disease. Patient apparently did sustain a TIA also. UOP brisk. HCV +, check PCR. UA bland so doubtful any glomerulonephritis Renal functions slightly worse, but hopefully will stabilize. We will continue to monitor. (2) Benign hypertension with chronic kidney disease, stage III ICD Codes: I12.9 - Hypertensive chronic kidney disease with stage 1 through stage 4 chronic kidney disease, or unspecified chronic kidney disease; N18.3 - Chronic kidney disease, stage 3 (moderate) Status: Chronic Plan: Suspect patient does have significant chronic kidney disease given his history of hypertension and apparent noncompliance with medical follow-up and medications. High risk for development of nephrosclerosis. Unfortunately patient appears to have poor insight but he was counseled regarding need for compliance. Medications should be adjusted for the patient's estimated GFR if clinically indicated. Avoid agents with significant potential for nephrotoxicity possible including NSAIDs for analgesia, iodine contrast agents. Gadolinium is contraindicated if the GFR is below 30. (3) S/P CABG x 2 ICD Codes: Z95.1 - Presence of aortocoronary bypass graft Status: Acute (4) Noncompliance with medication regimen ICD Codes: Z91.14 - Patient's other noncompliance with medication regimen Status: Chronic Plan: As above (5) HTN (hypertension) ICD Codes: I10 - Essential (primary) hypertension Status: Chronic (Kathy Melvin) Plan The exam, history, and the medical decision-making described in the above note were completed with the assistance of the PA-Aaron. I reviewed and agree with the findings presented. I attest that I had a [id number] encounter with the patient on the same day, and personally performed and documented my assessment and findings in the medical record. (Evelina Kiran MD) Kathy Melvin Jun 02, 2017 12:59 Evelina Kiran MD Jun 04, 2017 16:15
[2017-06-02] MEDS: RESP: IPRATROPIUM 0.5 MG/2.5 ML NEB NEB SCH ×2 (13:45→21:05)
--- NOTE | 2017-06-02 14:23 | EKG ---
Date Performed: 06/02/2017 Time Performed: 09:57:04 PTAGE: 62 years EKG: Sinus tachycardia with PAC(s) Short MI interval Nonspecific ST and T wave abnormalities Mil d nonspecific anterior ST elevation Borderline ECG PREVIOUS TRACING : 05/31/2017 17.25 Compared to prior electrocardiogram, Rate has increased and premature atrial contractions are present. DOCTOR: Sammy Morris Interpretating Date/Time 06/02/2017 14:22:13
--- NOTE | 2017-06-02 14:27 | HHI.CCPN ---
Subjective Remarks/Hospital Course 05/31: 62-year-old male with a medical history significant for hypertension, coronary artery disease, tobacco abuse, crack cocaine abuse who was admitted with a non-ST elevation CO and underwent cardiac catheterization with subsequent evaluation by CT surgery and underwent two-vessel CABG with AGUILAR to LAD and SVG to OM on 05/30/[address] Casas, tolerated procedure well was subsequently extubated and then transferred out of ICU today. This afternoon he developed speech difficulty with severe right sided weakness while ambulating. A stroke alert was called. Head CT was negative for any bleed. He was subsequently transferred to CVICU. Critical care consult was requested by Dr. Casas for stroke alert. I evaluated the patient following his arrival to the ICU. His symptoms had already started resolving with improvement in his right sided weakness as well as speech at the time of my evaluation. He did not appear to be in any acute distress. I also discussed the case with Dr. Beck from neurology who was present in the ICU at the time. Patient was complaining of some chest wall pain following his surgery otherwise not in any acute distress. He still felt that his speech was off. 06/01: Resting in bed this morning at the time of my evaluation slightly tachypneic on Ventimask. Knows he is in the hospital. Following commands. Complaining of minimal shortness of breath. 06/02 Patient is on non rebreather with good sats, on Amio drip. Objective Vital Signs Date Time Temp Pulse Resp B/P (MAP) Pulse Ox O2 Delivery O2 Flow Rate FiO2 06/02/17 11:00 97.8 98 16 138/78 (98) 95 06/02/17 11:00 Non-Rebreather 15.00 06/02/17 09:12 70 Intake and Output 06/02/17 06/02/17 06/03/17 08:00 16:00 00:00 Intake Total 242 ml Output Total 2145 ml Balance -1903 ml Result Diagram: 06/02/17 0520 06/02/17 0335 Other Results Laboratory Tests Test 06/01/17 15:10 06/01/17 20:00 06/02/17 03:35 06/02/17 05:20 Blood Urea Nitrogen 29 MG/DL 33 MG/DL Creatinine 2.52 MG/DL 2.71 MG/DL Random Glucose 119 MG/DL 127 MG/DL Calcium Level 8.9 MG/DL 9.0 MG/DL Sodium Level 139 MEQ/L 142 MEQ/L Potassium Level 4.8 MEQ/L 4.0 MEQ/L Chloride Level 106 MEQ/L 106 MEQ/L Carbon Dioxide Level 26.5 MEQ/L 28.2 MEQ/L Anion Gap 7 MEQ/L 8 MEQ/L Estimat Glomerular Filtration Rate 31 ML/MIN 29 ML/MIN Urine Color LIGHT-YELLOW Urine Turbidity HAZY Urine pH 5.0 Urine Specific [place] 1.009 Urine Protein TRACE mg/dL Urine Glucose (UA) NEG mg/dL Urine Ketones NEG mg/dL Urine Occult Blood SMALL Urine Nitrite NEG Urine Bilirubin NEG Urine Urobilinogen LESS THAN 2.0 MG/DL Urine Leukocyte Esterase SMALL Urine RBC 2 /hpf Urine WBC 6 /hpf Urine Squamous Epithelial Cells <1 /hpf Urine Amorphous Sediment RARE Urine Bacteria RARE /hpf Urine Eosinophils NONE SEEN /HPF Urine Random Creatinine 37.7 MG/DL Urine Random Sodium 111 MEQ/L Total Protein 6.8 GM/DL Albumin 2.8 GM/DL Alkaline Phosphatase 62 U/L Aspartate Amino Transf (AST/SGOT) 40 U/L Alanine Aminotransferase (ALT/SGPT) 9 U/L Total Bilirubin 0.5 MG/DL Total Creatine Kinase 875 U/L Creatine Kinase MB 4.0 NG/ML Creatine Kinase MB % 0.5 % 25-Hydroxy Vitamin D Total 11.2 ng/ML Complement C3 77 MG/DL Complement C4 24 MG/DL Hepatitis B Surface Antigen NEGATIVE Hepatitis C Antibody REACTIVE White Blood Count 11.8 TH/MM3 Red Blood Count 3.96 MIL/MM3 Hemoglobin 11.7 GM/DL Hematocrit 34.2 % Mean Corpuscular Volume 86.4 FL Mean Corpuscular Hemoglobin 29.5 PG Mean Corpuscular Hemoglobin Concent 34.2 % Red Cell Distribution Width 16.6 % Platelet Count 131 TH/MM3 Mean Platelet Volume 7.2 FL Neutrophils (%) (Auto) 76.2 % Lymphocytes (%) (Auto) 12.9 % Monocytes (%) (Auto) 10.7 % Eosinophils (%) (Auto) 0.1 % Basophils (%) (Auto) 0.1 % Neutrophils # (Auto) 9.0 TH/MM3 Lymphocytes # (Auto) 1.5 TH/MM3 Monocytes # (Auto) 1.3 TH/MM3 Eosinophils # (Auto) 0.0 TH/MM3 Basophils # (Auto) 0.0 TH/MM3 CBC Comment DIFF FINAL Differential Comment Test 06/02/17 09:45 Prothrombin Time 11.2 SEC Prothromb Time International Ratio 1.1 RATIO Activated Partial Thromboplast Time 34.0 SEC Imaging Last Impressions Chest X-Ray 06/02/17 0600 Signed Impressions: Service Date/Time: Friday, June 02, 2017 05:52 - CONCLUSION: No significant change has occurred. Srikanth Cole MD Head CT 05/31/17 0000 Signed Impressions: Service Date/Time: Wednesday, May 31, 2017 16:31 - CONCLUSION: 1. 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 2. Possible punctate lacunar type infarct in the posterior limb of left internal capsule. Nothing acute 3. Small retention cyst left maxillary antrum. Kiran Acosta MD Lower Extremity Ultrasound 05/29/17 1217 Signed Impressions: Service Date/Time: Monday, May 29, 2017 13:18 - CONCLUSION: 1. Venous mapping as above. 2. Nonvisualization of the left greater saphenous vein just above the knee peripherally. This may represent prior venous ablation. Kiran Acosta MD Carotid Artery Ultrasound 05/28/17 0000 Signed Impressions: Service Date/Time: Sunday, May 28, 2017 18:20 - CONCLUSION: Bilateral carotid bifurcation atherosclerosis, trace on the right and mild on the left. No hemodynamically significant narrowing. Maikol Monique MD Objective Remarks GENERAL: Patient is 62 yo lying in bed in mild resp distress SKIN: Warm and dry. HEAD: Normocephalic. EYES: No scleral icterus. No injection or drainage. NECK: Supple, trachea midline. No JVD or lymphadenopathy. CARDIOVASCULAR: Tachycardic without murmurs, gallops, or rubs. RESPIRATORY: Breath sounds equal bilaterally. No accessory muscle use. GASTROINTESTINAL: Abdomen soft, non-tender, nondistended. MUSCULOSKELETAL: No cyanosis, or edema. Neuro: Awake. A/P Assessment and Plan 62-year-old male with: Stroke alert CAD status post non-STEMI with multivessel CAD Status post CABG 05/30 Hypertension Plan: Neuro:Monitor neuro status. Patient has been evaluated by neurology. Head CT negative for bleed. On Plavix. Aspirin. CV: Monitor HR and BP keep MAP>65mmHg On Lopressor 50mg BID, ASA< Plavix , Hydralazine 25mg Q8, on Amio drip Monitor CT drainage- CT management per CTS Echo showed EF 55-60% on 06/01 Pulm: Continue with oxygen keep sat >92% Bronchodilators, GI/liver: On Po diet Renal/: Monitor renal function, I/O's, electrolytes replacement as needed. Avoid nephrotoxins Cr: 2.71 from 2.52, UOP: 2625 ml in 24 hrs. On Lasix 40mg daily ID:Monitor for signs of infections ( Fever, WBC) Heme: Monitor CBC, coags- on Coumadin Endocrine: SSI for glycemic control as needed Prophylaxis: SCDs, Coumadin started by CTS-monitor INR. Level 3 . Whitney Mcgraw MD Jun 02, 2017 14:27
--- NOTE | 2017-06-02 15:03 | HHI.PR ---
Review/Management Diagnosis TIA--exam stable with no recurrent TIA Atrial fibrillation Plan I agree with anticoagulation due to afib Diagnosis/Plan: Subjective Subjective Comments Patient developed atrial fibrillation--now on iv heparin, coumadin, asa No new neurologic SX Active Medications Current Medications Medications (Trade) Dose Ordered Sig/Fer Route Start Time Stop Time Status Last Admin (Tylenol) 650 mg Q6H PRN PO 05/26/17 20:45 (Lactulose Liq) 30 ml DAILY PRN PO 05/26/17 20:45 (CeleXA) 20 mg DAILY PO 05/27/17 09:00 06/02/17 10:22 (Flomax) 0.4 mg HS PO 05/26/17 23:45 06/01/17 21:00 (Pill Splitter) 1 ea UNSCH PRN OTHER 05/27/17 02:00 (Apresoline) 25 mg Q8HR PO 05/28/17 14:00 06/02/17 12:35 (Remeron) 15 mg HS PO 05/28/17 21:00 06/01/17 21:00 (Lipitor) 80 mg HS PO 05/28/17 21:00 06/01/17 21:00 (NS Flush) 2 ml BID IV FLUSH 05/30/17 21:00 06/02/17 09:00 (NS Flush) 2 ml UNSCH PRN IV FLUSH 05/30/17 16:30 (Protonix) 40 mg DAILY@06 PO 05/31/17 06:00 05/31/17 05:58 (Tylenol) 650 mg Q4H PRN PO 05/30/17 16:30 (Zofran Inj) 4 mg Q6H PRN IV PUSH 05/30/17 16:30 (Apresoline Inj) 10 mg Q4H PRN IV PUSH 05/30/17 16:30 06/01/17 23:25 (Colace) 100 mg BID PO 05/31/17 21:00 06/02/17 10:22 (Theragran M Tab) 1 tab DAILY PO 05/31/17 09:00 06/02/17 10:22 (Dulcolax Supp) 10 mg UNSCH PRN RECTAL 05/31/17 08:45 (Miralax) 17 gm DAILY PO 06/01/17 09:00 06/02/17 10:22 (Senokot) 8.6 mg HS PO 05/31/17 21:00 06/01/17 21:00 (Fleets Enema (Adult)) 118 ml UNSCH PRN RECTAL 05/31/17 08:45 (NovoLOG SUPPLEMENTAL SCALE) 1 ACHS SQ 05/31/17 17:00 (D50w (Vial) Inj) 50 ml UNSCH PRN IV PUSH 05/31/17 17:00 (Glucagon Inj) 1 mg UNSCH PRN OTHER 05/31/17 17:00 Amiodarone HCl 450 mg/Dextrose 250 ml @ 33.33 mls/ hr Q7H31M PRN IV 06/01/17 23:49 06/02/17 00:00 (Lopressor Inj) 5 mg Q5M PRN IV PUSH 06/01/17 23:45 (Lopressor) 50 mg Q12HR PO 06/02/17 21:00 (Atrovent Neb) 0.5 mg Q6HR NEB NEB 06/02/17 10:00 06/02/17 13:45 (Heparin Inj) 5,000 units UNSCH PRN IV PUSH 06/02/17 15:15 (Heparin Inj) 2,500 units UNSCH PRN IV PUSH 06/02/17 15:15 Heparin Sodium/ Dextrose 250 ml @ 10 mls/hr TITRATE PRN IV 06/02/17 13:00 06/02/17 12:40 (Coumadin) 5 mg DAILY@1600 PO 06/02/17 16:00 (Aspirin) 81 mg DAILY PO 06/03/17 09:00 (Lasix Inj) 40 mg DAILY IV PUSH 06/02/17 12:00 06/02/17 12:00 (Vitamin D3) 2,000 units DAILY PO 06/03/17 09:00 Allergies Allergies Coded Allergies No Known Allergies (Verified Allergy, Unknown, 05/26/17) morphine (Verified Adverse Reaction, Intermediate, Confusion, 05/30/17) Exam I&O / VS Vital Signs Date Time Temp Pulse Resp B/P (MAP) Pulse Ox O2 Delivery O2 Flow Rate FiO2 06/02/17 13:45 95 Venturi Mask 6.00 50 06/02/17 11:00 97.8 98 16 138/78 (98) 95 06/02/17 11:00 98 06/02/17 11:00 95 Non-Rebreather 15.00 06/02/17 09:12 92 Partial Rebreather 15.00 70 06/02/17 07:00 120 06/02/17 07:00 99 Non-Rebreather 15.00 06/02/17 07:00 98.3 120 16 171/83 (112) 99 06/02/17 03:00 124 06/02/17 03:00 98.9 137 18 164/75 (104) 97 06/02/17 03:00 99 Non-Rebreather 15.00 06/02/17 00:00 144 181/104 06/01/17 23:45 144 181/104 06/01/17 23:39 144 181/101 06/01/17 23:00 97 Non-Rebreather 15.00 06/01/17 23:00 98.8 123 20 181/94 (123) 96 06/01/17 23:00 123 06/01/17 20:40 94 Non-Rebreather 15.00 06/01/17 19:00 95 Non-Rebreather 15.00 06/01/17 19:00 129 06/01/17 19:00 99.1 129 20 174/117 (136) 95 Exam Comments alert, disoriented, speech is fluent with no sign of aphasia. He follows commands CN intact MOTOR -no focal weakness Objective Micro and Labs Laboratory Tests Test 06/01/17 15:10 06/01/17 20:00 06/02/17 03:35 06/02/17 05:20 Blood Urea Nitrogen 29 33 Creatinine 2.52 2.71 Random Glucose 119 127 Calcium Level 8.9 9.0 Sodium Level 139 142 Potassium Level 4.8 4.0 Chloride Level 106 106 Carbon Dioxide Level 26.5 28.2 Anion Gap 7 8 Estimat Glomerular Filtration Rate 31 29 Urine Color LIGHT-YELLOW Urine Turbidity HAZY Urine pH 5.0 Urine Specific [place] 1.009 Urine Protein TRACE Urine Glucose (UA) NEG Urine Ketones NEG Urine Occult Blood SMALL Urine Nitrite NEG Urine Bilirubin NEG Urine Urobilinogen LESS THAN 2.0 Urine Leukocyte Esterase SMALL Urine RBC 2 Urine WBC 6 Urine Squamous Epithelial Cells <1 Urine Amorphous Sediment RARE Urine Bacteria RARE Urine Eosinophils NONE SEEN Urine Random Creatinine 37.7 Urine Random Sodium 111 Total Protein 6.8 Albumin 2.8 Alkaline Phosphatase 62 Aspartate Amino Transf (AST/SGOT) 40 Alanine Aminotransferase (ALT/SGPT) 9 Total Bilirubin 0.5 Total Creatine Kinase 875 Creatine Kinase MB 4.0 Creatine Kinase MB % 0.5 25-Hydroxy Vitamin D Total 11.2 Complement C3 77 Complement C4 24 Hepatitis B Surface Antigen NEGATIVE Hepatitis C Antibody REACTIVE White Blood Count 11.8 Red Blood Count 3.96 Hemoglobin 11.7 Hematocrit 34.2 Mean Corpuscular Volume 86.4 Mean Corpuscular Hemoglobin 29.5 Mean Corpuscular Hemoglobin Concent 34.2 Red Cell Distribution Width 16.6 Platelet Count 131 Mean Platelet Volume 7.2 Neutrophils (%) (Auto) 76.2 Lymphocytes (%) (Auto) 12.9 Monocytes (%) (Auto) 10.7 Eosinophils (%) (Auto) 0.1 Basophils (%) (Auto) 0.1 Neutrophils # (Auto) 9.0 Lymphocytes # (Auto) 1.5 Monocytes # (Auto) 1.3 Eosinophils # (Auto) 0.0 Basophils # (Auto) 0.0 CBC Comment DIFF FINAL Differential Comment Test 06/02/17 09:45 Prothrombin Time 11.2 Prothromb Time International Ratio 1.1 Activated Partial Thromboplast Time 34.0 Nirav Beck PhD Jun 02, 2017 15:03
[2017-06-02] MEDS ORDERED: HEPARIN SODIUM - IV 10,000 UNITS/10 ML VIAL IV PUSH PRN ×2 (15:15)
--- NOTE | 2017-06-02 15:29 | PD.CAR.PN ---
CVT Progress Note Subjective/Hospital Course: 62/ male presented to the emergency room complaining of chest pain off and on for the past week associated with some diaphoresis, sharp pains lasting sometimes 10 minutes. No shortness of breath. History of previous UT and stent in [place] to the LAD. He was recently placed on Effient by his primary care but he has been noncompliant or ran out of it in the past week. Blood pressure on arrival was 190/100. His troponin was 1.76, creatinine 2.40. The patient underwent cardiac cath for a non-STEMI which revealed an ejection fraction of 60%. The right coronary artery was a nondominant lesion, patent, nonobstructive. The left main showed no disease. The left anterior descending had patent stents distally, however, there was a significant 99% stenosis. The left circumflex had a proximal lesion of 90%. We were consulted to evaluate for coronary artery bypass grafting. PAST MEDICAL HISTORY: Hypertension, Coronary artery disease ( stent ) , Tobacco abuse, History of crack cocaine abuse, but that was 4 years ago. 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 Nothing acute pt on full dose ASA and Plavix transferred back to CVICU with neuro checks, eval by neurology and followed by [employer] 06/01 pt somewhat confused, required placement of restraints to avoid pulling out chest tubes required full assistance to get OOB, has speech, PT and OT will need rehab placement at discharge chest tubes drained 200cc/ still requiring high 02 requirement K+ 5.8/ lasix 80mg IV x 1, Kayexalate po recheck K+ this afternoon 06/02 pt less confused, remains on partial NRB mask needs aggressive pulm toileting lasix IV x 1 appreciate consultants went into afib RVR last pm started on amiodarone gtt discussed with cardiology, will start heparin and coumadin , INR goal 2-3 chest tubes dc without difficulty Objective: GENERAL: SKIN: Warm and dry. prevena to chest HEAD: Normocephalic. EYES: No scleral icterus. No injection or drainage. NECK: Supple, trachea midline. No JVD or lymphadenopathy. CARDIOVASCULAR: irregular rate and rhythm without murmurs, gallops, or rubs. RESPIRATORY: Breath sounds equal bilaterally. No accessory muscle use. coarse breath sounds / chest tubes dc GASTROINTESTINAL: Abdomen soft, non-tender, nondistended. MUSCULOSKELETAL: No cyanosis, or edema. BACK: Nontender without obvious deformity. No CVA tenderness. neuro Neuro: follows all commands LANGE / still slightly confused Vital Signs Date Time Temp Pulse Resp B/P (MAP) Pulse Ox O2 Delivery O2 Flow Rate FiO2 06/02/17 15:00 95 Venturi Mask 50 06/02/17 15:00 98.6 109 16 131/87 (102) 93 06/02/17 15:00 109 06/02/17 13:45 95 Venturi Mask 6.00 50 06/02/17 11:00 97.8 98 16 138/78 (98) 95 06/02/17 11:00 98 06/02/17 11:00 95 Non-Rebreather 15.00 06/02/17 09:12 92 Partial Rebreather 15.00 70 06/02/17 07:00 120 06/02/17 07:00 99 Non-Rebreather 15.00 06/02/17 07:00 98.3 120 16 171/83 (112) 99 06/02/17 03:00 124 06/02/17 03:00 98.9 137 18 164/75 (104) 97 06/02/17 03:00 99 Non-Rebreather 15.00 06/02/17 00:00 144 181/104 06/01/17 23:45 144 181/104 06/01/17 23:39 144 181/101 06/01/17 23:00 97 Non-Rebreather 15.00 12/7/17 23:00 98.8 123 20 181/94 (123) 96 06/01/17 23:00 123 06/01/17 20:40 94 Non-Rebreather 15.00 06/01/17 19:00 95 Non-Rebreather 15.00 06/01/17 19:00 129 06/01/17 19:00 99.1 129 20 174/117 (136) 95 Labs: Laboratory Tests Test 06/02/17 03:35 06/02/17 05:20 06/02/17 09:45 Blood Urea Nitrogen 33 MG/DL (7-18) Creatinine 2.71 MG/DL (0.60-1.30) Random Glucose 127 MG/DL (74-106) Total Protein 6.8 GM/DL (6.4-8.2) Albumin 2.8 GM/DL (3.4-5.0) Calcium Level 9.0 MG/DL (8.5-10.1) Alkaline Phosphatase 62 U/L (45-117) Aspartate Amino Transf (AST/SGOT) 40 U/L (15-37) Alanine Aminotransferase (ALT/SGPT) 9 U/L (12-78) Total Bilirubin 0.5 MG/DL (0.2-1.0) Sodium Level 142 MEQ/L (136-145) Potassium Level 4.0 MEQ/L (3.5-5.1) Chloride Level 106 MEQ/L (98-107) Carbon Dioxide Level 28.2 MEQ/L (21.0-32.0) Anion Gap 8 MEQ/L (5-15) Estimat Glomerular Filtration Rate 29 ML/MIN (>89) Total Creatine Kinase 875 U/L (39-308) Creatine Kinase MB 4.0 NG/ML (0.5-3.6) Creatine Kinase MB % 0.5 % (0.0-4.0) 25-Hydroxy Vitamin D Total 11.2 ng/ML (30-100) Complement C3 77 MG/DL (90-180) Complement C4 24 MG/DL (10-40) Hepatitis B Surface Antigen NEGATIVE (NEGATIVE) Hepatitis C Antibody REACTIVE (NEGATIVE) White Blood Count 11.8 TH/MM3 (4.0-11.0) Red Blood Count 3.96 MIL/MM3 (4.50-5.90) Hemoglobin 11.7 GM/DL (13.0-17.0) Hematocrit 34.2 % (39.0-51.0) Mean Corpuscular Volume 86.4 FL (80.0-100.0) Mean Corpuscular Hemoglobin 29.5 PG (27.0-34.0) Mean Corpuscular Hemoglobin Concent 34.2 % (32.0-36.0) Red Cell Distribution Width 16.6 % (11.6-17.2) Platelet Count 131 TH/MM3 (150-450) Mean Platelet Volume 7.2 FL (7.0-11.0) Neutrophils (%) (Auto) 76.2 % (16.0-70.0) Lymphocytes (%) (Auto) 12.9 % (9.0-44.0) Monocytes (%) (Auto) 10.7 % (0.0-8.0) Eosinophils (%) (Auto) 0.1 % (0.0-4.0) Basophils (%) (Auto) 0.1 % (0.0-2.0) Neutrophils # (Auto) 9.0 TH/MM3 (1.8-7.7) Lymphocytes # (Auto) 1.5 TH/MM3 (1.0-4.8) Monocytes # (Auto) 1.3 TH/MM3 (0-0.9) Eosinophils # (Auto) 0.0 TH/MM3 (0-0.4) Basophils # (Auto) 0.0 TH/MM3 (0-0.2) CBC Comment DIFF FINAL Differential Comment Prothrombin Time 11.2 SEC (9.8-11.6) Prothromb Time International Ratio 1.1 RATIO Activated Partial Thromboplast Time 34.0 SEC (24.3-30.1) Result Diagram: 06/02/17 0520 06/02/17 0335 (1) NSTEMI (non-ST elevated myocardial infarction) (2) S/P CABG (coronary artery bypass graft) Plan: ASA, statin , BB amiodarone pulm toileting nebs ezpap acapella eval for rehab at discharge went into afib last pm (3) Tobacco abuse Plan: smoking cessation (4) HTN (hypertension) Plan: on BB, hydralazine and norvasc ,hold meds for SBP < 150 (5) ISABELLA (acute kidney injury) Plan: creatinine stable, avoid nephrotoxics meds hyperkalemia > resolved (6) TIA (transient ischemic attack) Plan: TIA, no new symptoms evidence of prior CVA (7) Afib Plan: start Heparin and coumadin , goal 2-3 (8) Crack cocaine use Arline Finley Jun 02, 2017 15:29
[2017-06-02] MEDS: hydrALAZINE HCL 20 MG/ML VIAL IV PUSH PRN (16:09)
[2017-06-02] MEDS: WARFARIN SOD 5 MG TAB PO SCH (16:09)
--- NOTE | 2017-06-02 16:13 | RADRPT ---
EXAM DATE/TIME: 06/02/2017 14:07 [facility] COMPARISON: No previous studies available for comparison. INDICATIONS : Increased BUN/Creatinine. MEDICAL HISTORY : Hypertension. Myocardial infarction. Coronary artery disease. Substance abuse. SURGICAL HISTORY : Coronary artery stent. CABG. Appendectomy. Hernia repair. ENCOUNTER: Initial ACUITY: 1 day PAIN SCORE: 0/10 LOCATION: Bilateral flank MEASUREMENTS: RIGHT KIDNEY: 10.1 x 4.9 x 6.1 cm LEFT KIDNEY: 10.3 x 4.7 x 5.5 cm FINDINGS: RIGHT KIDNEY: Renal cortex is normal in thickness with mild increased echotexture. There is very mild hydronephrosi s. No stone or mass is seen. LEFT KIDNEY: Renal cortex is normal in thickness with mild increased echotexture. No hydronephrosis, stone, or mas s. There is an anechoic avascular lesion in the lower pole measuring 16 mm. This represents a simple benign cyst. BLADDER: Decompressed completely with a Jacome catheter in place. CONCLUSION: 1. Mild degree of right hydronephrosis. 2. There is increased echotexture of the renal parenchyma suggesting medical renal disease. Maikol Ferrara MD on June 02, 2017 at 16:10 Board Certified Radiologist. This report was verified electronically.
[2017-06-02 19:07] LABS: APTT (PATIENT) 67.2 SEC (24.3-30.1)
[2017-06-02] MEDS: SENNOSIDES 8.6 MG TAB PO SCH (20:50)
[2017-06-02] MEDS: MIRTAZAPINE 15 MG TAB PO SCH (20:50)
[2017-06-02] MEDS: TAMSULOSIN HCL 0.4 MG CAP PO SCH (20:50)
[2017-06-02] MEDS: ATORVASTATIN 40 MG TAB PO SCH (20:50)
[2017-06-02] MEDS: METOPROLOL TARTRATE 50 MG TAB PO SCH (20:50)
[2017-06-03] VITALS (14 sets, daily range): BP systolic 122–172; BP diastolic 70–98; PULSE 83–110; RESP 18–20; TEMP 98–99.5; O2SAT 92–96
[2017-06-03] MEDS: AMIODARONE INJ 450 MG in DEXTROSE 5% IN WATE(EXCEL) INJ 241 ML IV PRN ×2 (00:09)
[2017-06-03] MEDS: hydrALAZINE HCL 20 MG/ML VIAL IV PUSH PRN (00:15)
[2017-06-03 00:39] LABS: APTT (PATIENT) 68.5 SEC (24.3-30.1)
--- NOTE | 2017-06-03 05:28 | RADRPT ---
EXAM DATE/TIME: 06/03/2017 04:37 [facility] COMPARISON: No previous studies available for comparison. INDICATIONS : Shortness of breath, possible pulmonary disease. MEDICAL HISTORY : Myocardial infarction. Hypertension SURGICAL HISTORY : CABG. Coronary artery stent. ENCOUNTER: Subsequent ACUITY: 1 week PAIN SCORE: 7/10 LOCATION: Bilateral chest FINDINGS: Right jugular line and sternotomy wires are noted. Left-sided chest tube has been removed. There is r esidual discoid atelectasis in the left midlung. There is patchy bilateral airspace disease. Cardiome elodia. Patchy right lung airspace disease. I do not see a pneumothorax. CONCLUSION: Stable patchy infiltrates. Srikanth Cole MD on June 03, 2017 at 5:26 Board Certified Radiologist. This report was verified electronically.
[2017-06-03 05:38] LABS: AUTOMATED NEUTROPHIL # 7.5 TH/MM3 (1.8-7.7); BASOPHIL % 0.2 % (0.0-2.0); EOSINOPHIL # 0.1 TH/MM3 (0-0.4); EOSINOPHIL % 0.7 % (0.0-4.0); HEMATOCRIT 33.2 % (39.0-51.0); HEMO FLAGS DIFF FINAL; LYMPH % 14.5 % (9.0-44.0); LYMPHOCYTE # 1.5 TH/MM3 (1.0-4.8); MEAN CELL VOLUME 87.1 FL (80.0-100.0); MEAN CORPUSCULAR HEMOGLOBIN 29.2 PG (27.0-34.0); MEAN CORPUSCULAR HGB CONC 33.5 % (32.0-36.0); MONO % 10.9 % (0.0-8.0); NEUT % 73.7 % (16.0-70.0); PLATELET COUNT 148 TH/MM3 (150-450); RED BLOOD COUNT 3.81 MIL/MM3 (4.50-5.90); RED CELL DISTRIBUTION WIDTH 16.4 % (11.6-17.2); WHITE BLOOD COUNT 10.2 TH/MM3 (4.0-11.0)
[2017-06-03 05:54] LABS: APTT (PATIENT) 70.3 SEC (24.3-30.1); INTERNATIONAL NORMALIZED RATIO 1.1 RATIO; PROTHROMBIN TIME - PATIENT 11.6 SEC (9.8-11.6)
[2017-06-03 05:56] LABS: ALT (GPT) 9 U/L (12-78); ANION GAP 9 MEQ/L (5-15); AST (GOT) 41 U/L (15-37); BICARBONATE 30.4 MEQ/L (21.0-32.0); BLOOD UREA NITROGEN 32 MG/DL (7-18); CHLORIDE 102 MEQ/L (98-107); GLOMERULAR FILTRATION RATE 31 ML/MIN (>89); POTASSIUM 3.4 MEQ/L (3.5-5.1); SODIUM (NA) 141 MEQ/L (136-145)
[2017-06-03 06:03] LABS: ALKALINE PHOSPHATASE 65 U/L (45-117); TOTAL BILIRUBIN ADULT 0.6 MG/DL (0.2-1.0)
[2017-06-03] MEDS: hydrALAZINE HCL 25 MG TAB PO SCH ×3 (06:31→21:01)
[2017-06-03] MEDS: PANTOPRAZOLE SOD 40 MG DELAYED RELEASE TAB PO SCH (06:31)
[2017-06-03] MEDS: INSULIN ASPART SUPPLEMENTAL SCALE SQ SCH ×4 (07:12→20:59)
[2017-06-03] MEDS: FUROSEMIDE 40 MG/4 ML VIAL IV PUSH SCH (08:35)
[2017-06-03] MEDS: CITALOPRAM HYDROBROMIDE 20 MG TAB PO SCH (08:35)
[2017-06-03] MEDS: MULTIVITAMINS/MINERALS THERAPEUTIC TAB PO SCH (08:36)
[2017-06-03] MEDS: METOPROLOL TARTRATE 50 MG TAB PO SCH ×2 (08:36→21:00)
[2017-06-03] MEDS: SODIUM CHLORIDE 0.9% FLUSH 10 ML FLUSH IV FLUSH SCH ×2 (08:36→21:01)
[2017-06-03] MEDS: CHOLECALCIFEROL (VIT D3) 1000 UNIT TAB PO SCH (08:36)
[2017-06-03] MEDS: POLYETHYLENE GLYCOL 17 GM PKG PO SCH (08:36)
[2017-06-03] MEDS: DOCUSATE SODIUM 100 MG CAP PO SCH ×2 (08:36→21:00)
[2017-06-03] MEDS: ASPIRIN 325 MG TAB PO SCH (08:36)
[2017-06-03] MEDS: RESP: IPRATROPIUM 0.5 MG/2.5 ML NEB NEB SCH ×3 (09:59→21:50)
--- NOTE | 2017-06-03 10:18 | PD.CAR.PN ---
CVT Progress Note Subjective/Hospital Course: 62/ male presented to the emergency room complaining of chest pain off and on for the past week associated with some diaphoresis, sharp pains lasting sometimes 10 minutes. No shortness of breath. History of previous [place] and stent in [place] to the LAD. He was recently placed on Effient by his primary care but he has been noncompliant or ran out of it in the past week. Blood pressure on arrival was 190/100. His troponin was 1.76, creatinine 2.40. The patient underwent cardiac cath for a non-STEMI which revealed an ejection fraction of 60%. The right coronary artery was a nondominant lesion, patent, nonobstructive. The left main showed no disease. The left anterior descending had patent stents distally, however, there was a significant 99% stenosis. The left circumflex had a proximal lesion of 90%. We were consulted to evaluate for coronary artery bypass grafting. PAST MEDICAL HISTORY: Hypertension, Coronary artery disease ( stent ) , Tobacco abuse, History of crack cocaine abuse, but that was 4 years ago. 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 Nothing acute pt on full dose ASA and Plavix transferred back to CVICU with neuro checks, eval by neurology and followed by [employer] 06/01 pt somewhat confused, required placement of restraints to avoid pulling out chest tubes required full assistance to get OOB, has speech, PT and OT will need rehab placement at discharge chest tubes drained 200cc/ still requiring high 02 requirement K+ 5.8/ lasix 80mg IV x 1, Kayexalate po recheck K+ this afternoon 06/02 pt less confused, remains on partial NRB mask needs aggressive pulm toileting lasix IV x 1 appreciate consultants went into afib RVR last pm started on amiodarone gtt discussed with cardiology, will start heparin and coumadin , INR goal 2-3 chest tubes dc without difficulty 06/03 Doing better On NC In NSR Monitor in ICU. Likely transfer to [facility] tomorrow Objective: Vital Signs Date Time Temp Pulse Resp B/P (MAP) Pulse Ox O2 Delivery O2 Flow Rate FiO2 06/03/17 09:59 93 Nasal Cannula 4.00 06/03/17 09:47 94 Nasal Cannula 4.00 06/03/17 09:00 99 Non-Rebreather 15.00 06/03/17 07:46 98.5 93 20 165/98 (120) 95 06/03/17 07:24 95 Non-Rebreather 15.00 06/03/17 07:00 97 06/03/17 03:18 109 06/03/17 03:15 99.5 110 20 172/78 (109) 95 06/03/17 03:15 95 Non-Rebreather 15.00 06/03/17 00:09 119 185/96 06/02/17 23:23 100.9 114 20 158/98 (118) 93 06/02/17 23:23 93 Non-Rebreather 15.00 06/02/17 23:00 119 06/02/17 21:04 98 Partial Rebreather 15.00 06/02/17 20:18 110 06/02/17 19:51 97 Non-Rebreather 15.00 100 06/02/17 19:51 99.4 104 20 168/90 (116) 97 06/02/17 16:43 97 Partial Rebreather 06/02/17 15:00 95 Venturi Mask 50 06/02/17 15:00 98.6 109 16 131/87 (102) 93 06/02/17 15:00 109 06/02/17 13:45 95 Venturi Mask 6.00 50 06/02/17 11:00 97.8 98 16 138/78 (98) 95 06/02/17 11:00 98 06/02/17 11:00 95 Non-Rebreather 15.00 Labs: Laboratory Tests Test 06/02/17 23:55 06/03/17 04:58 Activated Partial Thromboplast Time 68.5 SEC (24.3-30.1) 70.3 SEC (24.3-30.1) White Blood Count 10.2 TH/MM3 (4.0-11.0) Red Blood Count 3.81 MIL/MM3 (4.50-5.90) Hemoglobin 11.1 GM/DL (13.0-17.0) Hematocrit 33.2 % (39.0-51.0) Mean Corpuscular Volume 87.1 FL (80.0-100.0) Mean Corpuscular Hemoglobin 29.2 PG (27.0-34.0) Mean Corpuscular Hemoglobin Concent 33.5 % (32.0-36.0) Red Cell Distribution Width 16.4 % (11.6-17.2) Platelet Count 148 TH/MM3 (150-450) Mean Platelet Volume 7.7 FL (7.0-11.0) Neutrophils (%) (Auto) 73.7 % (16.0-70.0) Lymphocytes (%) (Auto) 14.5 % (9.0-44.0) Monocytes (%) (Auto) 10.9 % (0.0-8.0) Eosinophils (%) (Auto) 0.7 % (0.0-4.0) Basophils (%) (Auto) 0.2 % (0.0-2.0) Neutrophils # (Auto) 7.5 TH/MM3 (1.8-7.7) Lymphocytes # (Auto) 1.5 TH/MM3 (1.0-4.8) Monocytes # (Auto) 1.1 TH/MM3 (0-0.9) Eosinophils # (Auto) 0.1 TH/MM3 (0-0.4) Basophils # (Auto) 0.0 TH/MM3 (0-0.2) CBC Comment DIFF FINAL Differential Comment Prothrombin Time 11.6 SEC (9.8-11.6) Prothromb Time International Ratio 1.1 RATIO Blood Urea Nitrogen 32 MG/DL (7-18) Creatinine 2.55 MG/DL (0.60-1.30) Random Glucose 91 MG/DL (74-106) Total Protein 6.7 GM/DL (6.4-8.2) Albumin 2.4 GM/DL (3.4-5.0) Calcium Level 8.1 MG/DL (8.5-10.1) Alkaline Phosphatase 65 U/L (45-117) Aspartate Amino Transf (AST/SGOT) 41 U/L (15-37) Alanine Aminotransferase (ALT/SGPT) 9 U/L (12-78) Total Bilirubin 0.6 MG/DL (0.2-1.0) Sodium Level 141 MEQ/L (136-145) Potassium Level 3.4 MEQ/L (3.5-5.1) Chloride Level 102 MEQ/L (98-107) Carbon Dioxide Level 30.4 MEQ/L (21.0-32.0) Anion Gap 9 MEQ/L (5-15) Estimat Glomerular Filtration Rate 31 ML/MIN (>89) Result Diagram: 06/03/1745706/03/17457 (1) NSTEMI (non-ST elevated myocardial infarction) (2) S/P CABG (coronary artery bypass graft) Plan: ASA, statin , BB amiodarone pulm toileting nebs ezpap acapella eval for rehab at discharge went into afib last pm (3) Tobacco abuse Plan: smoking cessation (4) HTN (hypertension) Plan: on BB, hydralazine and norvasc ,hold meds for SBP < 150 (5) ISABELLA (acute kidney injury) Plan: creatinine stable, avoid nephrotoxics meds hyperkalemia > resolved (6) TIA (transient ischemic attack) Plan: TIA, no new symptoms evidence of prior CVA (7) Afib Plan: start Heparin and coumadin , goal 2-3 (8) Crack cocaine use Jessa Malone MD Jun 03, 2017 10:18
--- NOTE | 2017-06-03 11:02 | HHI.CCPN ---
Subjective Remarks/Hospital Course 05/31: 62-year-old male with a medical history significant for hypertension, coronary artery disease, tobacco abuse, crack cocaine abuse who was admitted with a non-ST elevation NV and underwent cardiac catheterization with subsequent evaluation by CT surgery and underwent two-vessel CABG with AGUILAR to LAD and SVG to OM on 05/30/[address] Casas, tolerated procedure well was subsequently extubated and then transferred out of ICU today. This afternoon he developed speech difficulty with severe right sided weakness while ambulating. A stroke alert was called. Head CT was negative for any bleed. He was subsequently transferred to CVICU. Critical care consult was requested by Dr. Casas for stroke alert. I evaluated the patient following his arrival to the ICU. His symptoms had already started resolving with improvement in his right sided weakness as well as speech at the time of my evaluation. He did not appear to be in any acute distress. I also discussed the case with Dr. Beck from neurology who was present in the ICU at the time. Patient was complaining of some chest wall pain following his surgery otherwise not in any acute distress. He still felt that his speech was off. 06/01: Resting in bed this morning at the time of my evaluation slightly tachypneic on Ventimask. Knows he is in the hospital. Following commands. Complaining of minimal shortness of breath. 06/02 Patient is on non rebreather with good sats, on Amio drip. 06/03 Patient is on 4L oxygen with good sats. Afebrile. On Amio and Heparin drips. Chest tube d/adelso Objective Vital Signs Date Time Temp Pulse Resp B/P (MAP) Pulse Ox O2 Delivery O2 Flow Rate FiO2 06/03/17 09:59 93 Nasal Cannula 4.00 06/03/17 07:46 98.5 93 20 165/98 (120) 06/02/17 19:51 100 Intake and Output 06/03/17 06/03/17 06/04/17 08:00 16:00 00:00 Intake Total 1206 ml Output Total 1450 ml Balance -244 ml Result Diagram: 06/03/17 0458 06/03/17 0458 Other Results Laboratory Tests Test 06/02/17 18:15 06/02/17 23:55 06/03/17 04:58 Activated Partial Thromboplast Time 67.2 SEC 68.5 SEC 70.3 SEC White Blood Count 10.2 TH/MM3 Red Blood Count 3.81 MIL/MM3 Hemoglobin 11.1 GM/DL Hematocrit 33.2 % Mean Corpuscular Volume 87.1 FL Mean Corpuscular Hemoglobin 29.2 PG Mean Corpuscular Hemoglobin Concent 33.5 % Red Cell Distribution Width 16.4 % Platelet Count 148 TH/MM3 Mean Platelet Volume 7.7 FL Neutrophils (%) (Auto) 73.7 % Lymphocytes (%) (Auto) 14.5 % Monocytes (%) (Auto) 10.9 % Eosinophils (%) (Auto) 0.7 % Basophils (%) (Auto) 0.2 % Neutrophils # (Auto) 7.5 TH/MM3 Lymphocytes # (Auto) 1.5 TH/MM3 Monocytes # (Auto) 1.1 TH/MM3 Eosinophils # (Auto) 0.1 TH/MM3 Basophils # (Auto) 0.0 TH/MM3 CBC Comment DIFF FINAL Differential Comment Prothrombin Time 11.6 SEC Prothromb Time International Ratio 1.1 RATIO Blood Urea Nitrogen 32 MG/DL Creatinine 2.55 MG/DL Random Glucose 91 MG/DL Total Protein 6.7 GM/DL Albumin 2.4 GM/DL Calcium Level 8.1 MG/DL Alkaline Phosphatase 65 U/L Aspartate Amino Transf (AST/SGOT) 41 U/L Alanine Aminotransferase (ALT/SGPT) 9 U/L Total Bilirubin 0.6 MG/DL Sodium Level 141 MEQ/L Potassium Level 3.4 MEQ/L Chloride Level 102 MEQ/L Carbon Dioxide Level 30.4 MEQ/L Anion Gap 9 MEQ/L Estimat Glomerular Filtration Rate 31 ML/MIN Imaging Last Impressions Chest X-Ray 06/03/17 0600 Signed Impressions: Service Date/Time: Saturday, June 03, 2017 04:37 - CONCLUSION: Stable patchy infiltrates. Srikanth Cole MD Renal Ultrasound 06/01/17 0000 Signed Impressions: Service Date/Time: Friday, June 02, 2017 14:07 - CONCLUSION: 1. Mild degree of right hydronephrosis. 2. There is increased echotexture of the renal parenchyma suggesting medical renal disease. Maikol Ferrara MD Head CT 05/31/17 0000 Signed Impressions: Service Date/Time: Wednesday, May 31, 2017 16:31 - CONCLUSION: 1. 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 2. Possible punctate lacunar type infarct in the posterior limb of left internal capsule. Nothing acute 3. Small retention cyst left maxillary antrum. Kiran Acosta MD Lower Extremity Ultrasound 05/29/17 1217 Signed Impressions: Service Date/Time: Monday, May 29, 2017 13:18 - CONCLUSION: 1. Venous mapping as above. 2. Nonvisualization of the left greater saphenous vein just above the knee peripherally. This may represent prior venous ablation. Kiran Acosta MD Carotid Artery Ultrasound 05/28/17 0000 Signed Impressions: Service Date/Time: Sunday, May 28, 2017 18:20 - CONCLUSION: Bilateral carotid bifurcation atherosclerosis, trace on the right and mild on the left. No hemodynamically significant narrowing. Maikol Monique MD Objective Remarks GENERAL: Patient is 62 yo lying in bed in mild resp distress SKIN: Warm and dry. HEAD: Normocephalic. EYES: No scleral icterus. No injection or drainage. NECK: Supple, trachea midline. No JVD or lymphadenopathy. CARDIOVASCULAR: Tachycardic without murmurs, gallops, or rubs. RESPIRATORY: Breath sounds equal bilaterally. No accessory muscle use. GASTROINTESTINAL: Abdomen soft, non-tender, nondistended. MUSCULOSKELETAL: No cyanosis, or edema. Neuro: Awake. A/P Assessment and Plan 62-year-old male with: Stroke alert CAD status post non-STEMI with multivessel CAD Status post CABG 05/30 Hypertension Plan: Neuro:Monitor neuro status. Patient has been evaluated by neurology. Head CT negative for bleed. On Plavix. Aspirin. CV: Monitor HR and BP keep MAP>65mmHg On Lopressor 50mg BID, ASA< Plavix , Hydralazine 25mg Q8, d/c Amio drip Echo showed EF 55-60% on 06/01 Pulm: Continue with oxygen keep sat >92% Bronchodilators, IS GI/liver: On Po diet Renal/: Monitor renal function, I/O's, electrolytes replacement as needed. Avoid nephrotoxins Cr: 2.55 from 2.7, UOP: 2600 ml in 24 hrs. On Lasix 40mg daily ID:Monitor for signs of infections ( Fever, WBC) Heme: Monitor CBC, coags- on Coumadin/Heparin drip. INR: 1.1 today Endocrine: SSI for glycemic control as needed Prophylaxis: SCDs, Coumadin/ Heparin drip.d/c heparin once INR >2.0 Level 3 . Whitney Mcgraw MD Jun 03, 2017 11:02
--- NOTE | 2017-06-03 11:15 | HHI.NPPN ---
Subjective History of Present Illness This patient is a 62-year-old male with a history of noncompliance with medical instruction, previous crack usage, hypertension, coronary disease with previous stent and now status post 2 vessel CABG May 27, 2017. Patient initially presented to this institution on May 26 with chest pain subsequently diagnosed as having non-ST OK. On presentation creatinine level was noted to be 2.4. Prior to this back in April 08, 2017 creatinine level was 1.97. Patient transferred back to the ICU after apparently having TIA May 31. Creatinine level for his hospital course improved slightly to 1.93 May 29 and has now worsened again on day of consultation to a level 2.52. Patient appears to be a very poor historian and somewhat noncooperative during visit. Interval History Pt on NC today and says breathing much improved No new complaints. (Kathy Melvin) Review of Systems Respiratory Lungs: SOB (Kathy Melvin) Objective Data Data Vital Signs Date Time Temp Pulse Resp B/P (MAP) Pulse Ox O2 Delivery O2 Flow Rate FiO2 06/03/17 09:59 93 Nasal Cannula 4.00 06/03/17 09:47 94 Nasal Cannula 4.00 06/03/17 09:00 99 Non-Rebreather 15.00 06/03/17 07:46 98.5 93 20 165/98 (120) 95 06/03/17 07:24 95 Non-Rebreather 15.00 06/03/17 07:00 97 06/03/17 03:18 109 06/03/17 03:15 99.5 110 20 172/78 (109) 95 06/03/17 03:15 95 Non-Rebreather 15.00 06/03/17 00:09 119 185/96 06/02/17 23:23 100.9 114 20 158/98 (118) 93 06/02/17 23:23 93 Non-Rebreather 15.00 06/02/17 23:00 119 06/02/17 21:04 98 Partial Rebreather 15.00 06/02/17 20:18 110 06/02/17 19:51 97 Non-Rebreather 15.00 100 06/02/17 19:51 99.4 104 20 168/90 (116) 97 06/02/17 16:43 97 Partial Rebreather 06/02/17 15:00 95 Venturi Mask 50 06/02/17 15:00 98.6 109 16 131/87 (102) 93 06/02/17 15:00 109 06/02/17 13:45 95 Venturi Mask 6.00 50 (Kathy Melvin) -: 06/03/17 0458 06/03/17 0458 Imaging Last Impressions Chest X-Ray 06/03/17 0600 Signed Impressions: Service Date/Time: Saturday, June 03, 2017 04:37 - CONCLUSION: Stable patchy infiltrates. Srikanth Cole MD Renal Ultrasound 06/01/17 0000 Signed Impressions: Service Date/Time: Friday, June 02, 2017 14:07 - CONCLUSION: 1. Mild degree of right hydronephrosis. 2. There is increased echotexture of the renal parenchyma suggesting medical renal disease. Maikol Ferrara MD Head CT 05/31/17 0000 Signed Impressions: Service Date/Time: Wednesday, May 31, 2017 16:31 - CONCLUSION: 1. 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 2. Possible punctate lacunar type infarct in the posterior limb of left internal capsule. Nothing acute 3. Small retention cyst left maxillary antrum. Kiran Acosta MD Lower Extremity Ultrasound 05/29/17 1217 Signed Impressions: Service Date/Time: Monday, May 29, 2017 13:18 - CONCLUSION: 1. Venous mapping as above. 2. Nonvisualization of the left greater saphenous vein just above the knee peripherally. This may represent prior venous ablation. Kiran Acosta MD Carotid Artery Ultrasound 05/28/17 0000 Signed Impressions: Service Date/Time: Sunday, May 28, 2017 18:20 - CONCLUSION: Bilateral carotid bifurcation atherosclerosis, trace on the right and mild on the left. No hemodynamically significant narrowing. Maikol Monique MD Medication Review Current Medications Medications (Trade) Dose Ordered Sig/Fer Route Start Time Stop Time Status Last Admin (Tylenol) 650 mg Q6H PRN PO 05/26/17 20:45 (Lactulose Liq) 30 ml DAILY PRN PO 05/26/17 20:45 (CeleXA) 20 mg DAILY PO 05/27/17 09:00 06/03/17 08:35 (Flomax) 0.4 mg HS PO 05/26/17 23:45 06/02/17 20:50 (Pill Splitter) 1 ea UNSCH PRN OTHER 05/27/17 02:00 (Apresoline) 25 mg Q8HR PO 05/28/17 14:00 06/03/17 06:31 (Remeron) 15 mg HS PO 05/28/17 21:00 06/02/17 20:50 (Lipitor) 80 mg HS PO 05/28/17 21:00 06/02/17 20:50 (NS Flush) 2 ml BID IV FLUSH 05/30/17 21:00 06/03/17 08:36 (NS Flush) 2 ml UNSCH PRN IV FLUSH 05/30/17 16:30 06/03/17 00:17 (Protonix) 40 mg DAILY@06 PO 05/31/17 06:00 06/03/17 06:31 (Tylenol) 650 mg Q4H PRN PO 05/30/17 16:30 (Zofran Inj) 4 mg Q6H PRN IV PUSH 05/30/17 16:30 (Apresoline Inj) 10 mg Q4H PRN IV PUSH 05/30/17 16:30 06/03/17 00:15 (Colace) 100 mg BID PO 05/31/17 21:00 06/02/17 20:50 (Theragran M Tab) 1 tab DAILY PO 05/31/17 09:00 06/03/17 08:36 (Dulcolax Supp) 10 mg UNSCH PRN RECTAL 05/31/17 08:45 (Miralax) 17 gm DAILY PO 06/01/17 09:00 06/02/17 10:22 (Senokot) 8.6 mg HS PO 05/31/17 21:00 06/02/17 20:50 (Fleets Enema (Adult)) 118 ml UNSCH PRN RECTAL 05/31/17 08:45 (NovoLOG SUPPLEMENTAL SCALE) 1 ACHS SQ 05/31/17 17:00 (D50w (Vial) Inj) 50 ml UNSCH PRN IV PUSH 05/31/17 17:00 (Glucagon Inj) 1 mg UNSCH PRN OTHER 05/31/17 17:00 Amiodarone HCl 450 mg/Dextrose 250 ml @ 33.33 mls/ hr Q7H31M PRN IV 06/01/17 23:49 06/03/17 00:09 (Lopressor Inj) 5 mg Q5M PRN IV PUSH 06/01/17 23:45 (Lopressor) 50 mg Q12HR PO 06/02/17 21:00 06/03/17 08:36 (Atrovent Neb) 0.5 mg Q6HR NEB NEB 06/02/17 10:00 06/03/17 09:59 (Heparin Inj) 5,000 units UNSCH PRN IV PUSH 06/02/17 15:15 (Heparin Inj) 2,500 units UNSCH PRN IV PUSH 06/02/17 15:15 Heparin Sodium/ Dextrose 250 ml @ 10 mls/hr TITRATE PRN IV 06/02/17 13:00 06/02/17 12:40 (Coumadin) 5 mg DAILY@1600 PO 06/02/17 16:00 06/02/17 16:09 (Aspirin) 81 mg DAILY PO 06/03/17 09:00 06/03/17 08:36 (Lasix Inj) 40 mg DAILY IV PUSH 06/02/17 12:00 06/03/17 08:35 (Vitamin D3) 2,000 units DAILY PO 06/03/17 09:00 06/03/17 08:36 (Kathy Melvin) Physical Exam General Appearance: No Acute Distress, Comfortable (Kathy Melvin) Pulmonary Resp Exam: Clear Bilaterally, Breath Sounds Equal (Kathy Melvin) Cardiology CV Exam: Regular, Normal Sinus Rhythm (Kathy Melvin) Gastrointestinal/Abdomen GI Exam: Soft (but mildly distended) (Kathy Melvin) Integumentary Skin Exam: Clear, Warm (Kathy Melvin) Extremeties Extremities Exam: No Edema (Kathy Melvin) Neurologic Neuro Exam: Alert, Awake (Kathy Melvin) Psychiatric Psych Exam: Appropriate Responses (Kathy Melvin) Assessment/Plan Problem List: (1) Acute renal failure with acute renal cortical necrosis superimposed on stage 3 chronic kidney disease ICD Codes: N17.1 - Acute kidney failure with acute cortical necrosis; N18.3 - Chronic kidney disease, stage 3 (moderate) Status: Acute Plan: Patient may have sustained acute kidney injury related to recent CABG. Also in differential possible acute renal insufficiency related to atheroembolic disease. Patient apparently did sustain a TIA also. Renal functions slightly better. Understands he likely has underlying CKD but remains to be seen where renal functions will stabilize. Diuretic management deferred to cardiology. KCl ordered today Start Vit D3 HCV PCR pending. UA bland so doubtful any glomerulonephritis We will continue to monitor. (2) Benign hypertension with chronic kidney disease, stage III ICD Codes: I12.9 - Hypertensive chronic kidney disease with stage 1 through stage 4 chronic kidney disease, or unspecified chronic kidney disease; N18.3 - Chronic kidney disease, stage 3 (moderate) Status: Chronic Plan: Suspect patient does have significant chronic kidney disease given his history of hypertension and apparent noncompliance with medical follow-up and medications. High risk for development of nephrosclerosis. Unfortunately patient appears to have poor insight but he was counseled regarding need for compliance. Medications should be adjusted for the patient's estimated GFR if clinically indicated. Avoid agents with significant potential for nephrotoxicity possible including NSAIDs for analgesia, iodine contrast agents. Gadolinium is contraindicated if the GFR is below 30. (3) S/P CABG x 2 ICD Codes: Z95.1 - Presence of aortocoronary bypass graft Status: Acute (4) Noncompliance with medication regimen ICD Codes: Z91.14 - Patient's other noncompliance with medication regimen Status: Chronic Plan: As above (5) HTN (hypertension) ICD Codes: I10 - Essential (primary) hypertension Status: Chronic (Kathy Melvin) Plan The exam, history, and the medical decision-making described in the above note were completed with the assistance of the [facility]. I reviewed and agree with the findings presented. (Evelina Kiran MD) Kathy Melvin Jun 03, 2017 11:15 Evelina Kiran MD Jun 04, 2017 16:16
[2017-06-03] MEDS ORDERED: POTASSIUM CHLORIDE 20 MEQ CONTROLLED RELEASE TAB PO ONE (11:30)
[2017-06-03] MEDS: WARFARIN SOD 5 MG TAB PO SCH (16:09)
[2017-06-03] MEDS: TAMSULOSIN HCL 0.4 MG CAP PO SCH (21:00)
[2017-06-03] MEDS: MIRTAZAPINE 15 MG TAB PO SCH (21:00)
[2017-06-03] MEDS: SENNOSIDES 8.6 MG TAB PO SCH (21:00)
[2017-06-03] MEDS: ATORVASTATIN 40 MG TAB PO SCH (21:01)
[2017-06-03 23:53] LABS: KAPPA/LAMBDA FREE 1.6 (0.26-1.65)
[2017-06-04] VITALS (16 sets, daily range): BP systolic 125–155; BP diastolic 74–88; PULSE 85–123; RESP 16–18; TEMP 98–99.2; O2SAT 92–96
[2017-06-04 03:53] LABS: MYELOPEROXIDASE LESS THAN 1.0 AI (<1.0); PROTEINASE-3 LESS THAN 1.0 AI (<1.0)
[2017-06-04 04:19] LABS: AUTOMATED NEUTROPHIL # 4.5 TH/MM3 (1.8-7.7); BASOPHIL % 0.2 % (0.0-2.0); EOSINOPHIL # 0.2 TH/MM3 (0-0.4); EOSINOPHIL % 2.4 % (0.0-4.0); HEMATOCRIT 30.9 % (39.0-51.0); HEMO FLAGS DIFF FINAL; LYMPH % 18.6 % (9.0-44.0); LYMPHOCYTE # 1.3 TH/MM3 (1.0-4.8); MEAN CELL VOLUME 86.4 FL (80.0-100.0); MEAN CORPUSCULAR HEMOGLOBIN 28.8 PG (27.0-34.0); MEAN CORPUSCULAR HGB CONC 33.3 % (32.0-36.0); MONO % 14.8 % (0.0-8.0); PLATELET COUNT 157 TH/MM3 (150-450); RED BLOOD COUNT 3.57 MIL/MM3 (4.50-5.90); RED CELL DISTRIBUTION WIDTH 16.5 % (11.6-17.2)
[2017-06-04] MEDS: RESP: IPRATROPIUM 0.5 MG/2.5 ML NEB NEB SCH ×3 (04:37→15:42)
[2017-06-04 04:38] LABS: INTERNATIONAL NORMALIZED RATIO 1.5 RATIO; PROTHROMBIN TIME - PATIENT 14.9 SEC (9.8-11.6)
[2017-06-04 04:47] LABS: BICARBONATE 31.4 MEQ/L (21.0-32.0); POTASSIUM 3.4 MEQ/L (3.5-5.1)
[2017-06-04] MEDS: HEPARIN-D5W 25,000 U/250 ML 250 ML IV PRN (05:01)
[2017-06-04] MEDS: hydrALAZINE HCL 25 MG TAB PO SCH ×3 (06:00→20:23)
[2017-06-04] MEDS: PANTOPRAZOLE SOD 40 MG DELAYED RELEASE TAB PO SCH (06:32)
[2017-06-04] MEDS: INSULIN ASPART SUPPLEMENTAL SCALE SQ SCH ×4 (07:23→20:26)
[2017-06-04] MEDS: ASPIRIN 325 MG TAB PO SCH (08:34)
[2017-06-04] MEDS: FUROSEMIDE 40 MG/4 ML VIAL IV PUSH SCH (08:34)
[2017-06-04] MEDS: METOPROLOL TARTRATE 50 MG TAB PO SCH ×2 (08:34→20:24)
[2017-06-04] MEDS: CITALOPRAM HYDROBROMIDE 20 MG TAB PO SCH (08:34)
[2017-06-04] MEDS: SODIUM CHLORIDE 0.9% FLUSH 10 ML FLUSH IV FLUSH SCH ×2 (08:34→20:25)
[2017-06-04] MEDS: POLYETHYLENE GLYCOL 17 GM PKG PO SCH (08:35)
[2017-06-04] MEDS: CHOLECALCIFEROL (VIT D3) 1000 UNIT TAB PO SCH (08:35)
[2017-06-04] MEDS: MULTIVITAMINS/MINERALS THERAPEUTIC TAB PO SCH (08:35)
[2017-06-04] MEDS: DOCUSATE SODIUM 100 MG CAP PO SCH ×2 (08:35→20:24)
--- NOTE | 2017-06-04 09:29 | PD.CAR.PN ---
CVT Progress Note Subjective/Hospital Course: 62/ male presented to the emergency room complaining of chest pain off and on for the past week associated with some diaphoresis, sharp pains lasting sometimes 10 minutes. No shortness of breath. History of previous NH and stent in [place] to the LAD. He was recently placed on Effient by his primary care but he has been noncompliant or ran out of it in the past week. Blood pressure on arrival was 190/100. His troponin was 1.76, creatinine 2.40. The patient underwent cardiac cath for a non-STEMI which revealed an ejection fraction of 60%. The right coronary artery was a nondominant lesion, patent, nonobstructive. The left main showed no disease. The left anterior descending had patent stents distally, however, there was a significant 99% stenosis. The left circumflex had a proximal lesion of 90%. We were consulted to evaluate for coronary artery bypass grafting. PAST MEDICAL HISTORY: Hypertension, Coronary artery disease ( stent ) , Tobacco abuse, History of crack cocaine abuse, but that was 4 years ago. 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 Nothing acute pt on full dose ASA and Plavix transferred back to CVICU with neuro checks, eval by neurology and followed by [facility] 06/01 pt somewhat confused, required placement of restraints to avoid pulling out chest tubes required full assistance to get OOB, has speech, PT and OT will need rehab placement at discharge chest tubes drained 200cc/ still requiring high 02 requirement K+ 5.8/ lasix 80mg IV x 1, Kayexalate po recheck K+ this afternoon 06/02 pt less confused, remains on partial NRB mask needs aggressive pulm toileting lasix IV x 1 appreciate consultants went into afib RVR last pm started on amiodarone gtt discussed with cardiology, will start heparin and coumadin , INR goal 2-3 chest tubes dc without difficulty 06/03 Doing better On NC In NSR Monitor in ICU. Likely transfer to CPCU tomorrow 06/04 Doing well Weaning Oxygen. On 6L NC Transfer to CPCU when bed available Remains on Heparin gtt. Objective: Vital Signs Date Time Temp Pulse Resp B/P (MAP) Pulse Ox O2 Delivery O2 Flow Rate FiO2 06/04/17 08:22 92 Nasal Cannula 6.00 06/04/17 07:42 98.0 92 18 142/79 (100) 95 06/04/17 07:13 95 Nasal Cannula 6.00 06/04/17 07:00 97 06/04/17 04:16 98.2 92 18 139/77 (97) 96 06/04/17 03:14 96 Nasal Cannula 6.00 06/04/17 03:13 95 06/03/17 23:17 85 06/03/17 23:12 98.9 83 20 147/91 (109) 96 06/03/17 23:11 96 Nasal Cannula 6.00 06/03/17 21:50 92 Nasal Cannula 6.00 06/03/17 19:42 96 Nasal Cannula 6.00 06/03/17 19:42 98.8 104 20 150/81 (104) 96 06/03/17 19:00 92 06/03/17 18:41 96 143/78 06/03/17 15:16 92 Nasal Cannula 4.00 06/03/17 15:13 98.0 92 18 130/73 (92) 96 06/03/17 15:00 92 06/03/17 11:49 94 Nasal Cannula 4.00 06/03/17 11:48 98.4 86 20 122/70 (87) 95 06/03/17 11:00 86 06/03/17 09:59 93 Nasal Cannula 4.00 06/03/17 09:47 94 Nasal Cannula 4.00 Labs: Laboratory Tests Test 06/04/17 04:02 06/04/17 06:57 White Blood Count 7.0 TH/MM3 (4.0-11.0) Red Blood Count 3.57 MIL/MM3 (4.50-5.90) Hemoglobin 10.3 GM/DL (13.0-17.0) Hematocrit 30.9 % (39.0-51.0) Mean Corpuscular Volume 86.4 FL (80.0-100.0) Mean Corpuscular Hemoglobin 28.8 PG (27.0-34.0) Mean Corpuscular Hemoglobin Concent 33.3 % (32.0-36.0) Red Cell Distribution Width 16.5 % (11.6-17.2) Platelet Count 157 TH/MM3 (150-450) Mean Platelet Volume 7.1 FL (7.0-11.0) Neutrophils (%) (Auto) 64.0 % (16.0-70.0) Lymphocytes (%) (Auto) 18.6 % (9.0-44.0) Monocytes (%) (Auto) 14.8 % (0.0-8.0) Eosinophils (%) (Auto) 2.4 % (0.0-4.0) Basophils (%) (Auto) 0.2 % (0.0-2.0) Neutrophils # (Auto) 4.5 TH/MM3 (1.8-7.7) Lymphocytes # (Auto) 1.3 TH/MM3 (1.0-4.8) Monocytes # (Auto) 1.0 TH/MM3 (0-0.9) Eosinophils # (Auto) 0.2 TH/MM3 (0-0.4) Basophils # (Auto) 0.0 TH/MM3 (0-0.2) CBC Comment DIFF FINAL Differential Comment Prothrombin Time 14.9 SEC (9.8-11.6) Prothromb Time International Ratio 1.5 RATIO Activated Partial Thromboplast Time 101.0 SEC (24.3-30.1) 72.0 SEC (24.3-30.1) Blood Urea Nitrogen 37 MG/DL (7-18) Creatinine 2.20 MG/DL (0.60-1.30) Random Glucose 102 MG/DL (74-106) Calcium Level 8.1 MG/DL (8.5-10.1) Sodium Level 137 MEQ/L (136-145) Potassium Level 3.4 MEQ/L (3.5-5.1) Chloride Level 100 MEQ/L (98-107) Carbon Dioxide Level 31.4 MEQ/L (21.0-32.0) Anion Gap 6 MEQ/L (5-15) Estimat Glomerular Filtration Rate 37 ML/MIN (>89) Result Diagram: 06/04/1740106/04/17401 (1) NSTEMI (non-ST elevated myocardial infarction) (2) S/P CABG (coronary artery bypass graft) Plan: ASA, statin , BB amiodarone pulm toileting nebs ezpap acapella eval for rehab at discharge went into afib last pm (3) Tobacco abuse Plan: smoking cessation (4) HTN (hypertension) Plan: on BB, hydralazine and norvasc ,hold meds for SBP < 150 (5) ISABELLA (acute kidney injury) Plan: creatinine stable, avoid nephrotoxics meds hyperkalemia > resolved (6) TIA (transient ischemic attack) Plan: TIA, no new symptoms evidence of prior CVA (7) Afib Plan: start Heparin and coumadin , goal 2-3 (8) Crack cocaine use Jessa Malone MD Jun 04, 2017 09:29
--- NOTE | 2017-06-04 10:06 | HHI.CCPN ---
Subjective Remarks/Hospital Course 05/31: 62-year-old male with a medical history significant for hypertension, coronary artery disease, tobacco abuse, crack cocaine abuse who was admitted with a non-ST elevation MT and underwent cardiac catheterization with subsequent evaluation by CT surgery and underwent two-vessel CABG with AGUILAR to LAD and SVG to OM on 05/30/[address] Casas, tolerated procedure well was subsequently extubated and then transferred out of ICU today. This afternoon he developed speech difficulty with severe right sided weakness while ambulating. A stroke alert was called. Head CT was negative for any bleed. He was subsequently transferred to CVICU. Critical care consult was requested by Dr. Casas for stroke alert. I evaluated the patient following his arrival to the ICU. His symptoms had already started resolving with improvement in his right sided weakness as well as speech at the time of my evaluation. He did not appear to be in any acute distress. I also discussed the case with Dr. Beck from neurology who was present in the ICU at the time. Patient was complaining of some chest wall pain following his surgery otherwise not in any acute distress. He still felt that his speech was off. 06/01: Resting in bed this morning at the time of my evaluation slightly tachypneic on Ventimask. Knows he is in the hospital. Following commands. Complaining of minimal shortness of breath. 06/02 Patient is on non rebreather with good sats, on Amio drip. 06/03 Patient is on 4L oxygen with good sats. Afebrile. On Amio and Heparin drips. Chest tube d/adelso 06/04 No events overnight. On 6L oxygen. Afebrile. Objective Vital Signs Date Time Temp Pulse Resp B/P (MAP) Pulse Ox O2 Delivery O2 Flow Rate FiO2 06/04/17 08:22 92 Nasal Cannula 6.00 06/04/17 07:42 98.0 92 18 142/79 (100) 06/02/17 19:51 100 Intake and Output 06/04/17 06/04/17 06/05/17 08:00 16:00 00:00 Intake Total 379 ml Output Total 895 ml Balance -516 ml Result Diagram: 06/04/172 06/04/17 0402 Other Results Laboratory Tests Test 06/04/17 04:02 06/04/17 06:57 White Blood Count 7.0 TH/MM3 Red Blood Count 3.57 MIL/MM3 Hemoglobin 10.3 GM/DL Hematocrit 30.9 % Mean Corpuscular Volume 86.4 FL Mean Corpuscular Hemoglobin 28.8 PG Mean Corpuscular Hemoglobin Concent 33.3 % Red Cell Distribution Width 16.5 % Platelet Count 157 TH/MM3 Mean Platelet Volume 7.1 FL Neutrophils (%) (Auto) 64.0 % Lymphocytes (%) (Auto) 18.6 % Monocytes (%) (Auto) 14.8 % Eosinophils (%) (Auto) 2.4 % Basophils (%) (Auto) 0.2 % Neutrophils # (Auto) 4.5 TH/MM3 Lymphocytes # (Auto) 1.3 TH/MM3 Monocytes # (Auto) 1.0 TH/MM3 Eosinophils # (Auto) 0.2 TH/MM3 Basophils # (Auto) 0.0 TH/MM3 CBC Comment DIFF FINAL Differential Comment Prothrombin Time 14.9 SEC Prothromb Time International Ratio 1.5 RATIO Activated Partial Thromboplast Time 101.0 SEC 72.0 SEC Blood Urea Nitrogen 37 MG/DL Creatinine 2.20 MG/DL Random Glucose 102 MG/DL Calcium Level 8.1 MG/DL Sodium Level 137 MEQ/L Potassium Level 3.4 MEQ/L Chloride Level 100 MEQ/L Carbon Dioxide Level 31.4 MEQ/L Anion Gap 6 MEQ/L Estimat Glomerular Filtration Rate 37 ML/MIN Imaging Last Impressions Chest X-Ray 06/03/17 0600 Signed Impressions: Service Date/Time: Saturday, June 03, 2017 04:37 - CONCLUSION: Stable patchy infiltrates. Srikanth Cole MD Renal Ultrasound 06/01/17 0000 Signed Impressions: Service Date/Time: Friday, June 02, 2017 14:07 - CONCLUSION: 1. Mild degree of right hydronephrosis. 2. There is increased echotexture of the renal parenchyma suggesting medical renal disease. Maikol Ferrara MD Head CT 05/31/17 0000 Signed Impressions: Service Date/Time: Wednesday, May 31, 2017 16:31 - CONCLUSION: 1. 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 2. Possible punctate lacunar type infarct in the posterior limb of left internal capsule. Nothing acute 3. Small retention cyst left maxillary antrum. Kiran Acosta MD Lower Extremity Ultrasound 05/29/17 1217 Signed Impressions: Service Date/Time: Monday, May 29, 2017 13:18 - CONCLUSION: 1. Venous mapping as above. 2. Nonvisualization of the left greater saphenous vein just above the knee peripherally. This may represent prior venous ablation. Kiran Acosta MD Carotid Artery Ultrasound 05/28/17 0000 Signed Impressions: Service Date/Time: Sunday, May 28, 2017 18:20 - CONCLUSION: Bilateral carotid bifurcation atherosclerosis, trace on the right and mild on the left. No hemodynamically significant narrowing. Maikol Monique MD Objective Remarks GENERAL: Patient is 62 yo lying in bed in mild resp distress SKIN: Warm and dry. HEAD: Normocephalic. EYES: No scleral icterus. No injection or drainage. NECK: Supple, trachea midline. No JVD or lymphadenopathy. CARDIOVASCULAR: Tachycardic without murmurs, gallops, or rubs. RESPIRATORY: Breath sounds equal bilaterally. No accessory muscle use. GASTROINTESTINAL: Abdomen soft, non-tender, nondistended. MUSCULOSKELETAL: No cyanosis, or edema. Neuro: Awake. A/P Assessment and Plan 62-year-old male with: Stroke alert CAD status post non-STEMI with multivessel CAD Status post CABG 05/30 Hypertension Plan: Neuro:Monitor neuro status. Patient has been evaluated by neurology. Head CT negative for bleed. On Plavix. Aspirin. CV: Monitor HR and BP keep MAP>65mmHg On Lopressor 50mg BID, ASA, Plavix , Hydralazine 25mg Q8, Echo showed EF 55-60% on 06/01 Pulm: Continue with oxygen keep sat >92% Bronchodilators, IS GI/liver: On Po diet Renal/: Monitor renal function, I/O's, electrolytes replacement as needed. Avoid nephrotoxins Cr: 2.22 today from 2.55, UOP:1745 ml in 24 hrs. On Lasix 40mg daily ID:Monitor for signs of infections ( Fever, WBC) Heme: Monitor CBC, coags- on Coumadin/Heparin drip. INR: 1.5 today Endocrine: SSI for glycemic control as needed Prophylaxis: SCDs, Coumadin/ Heparin drip.d/c heparin once INR >2.0 Will sign off Level 3 . Whitney Mcgraw MD Jun 04, 2017 10:06
[2017-06-04 14:31] LABS: APTT (PATIENT) 67.4 SEC (24.3-30.1)
--- NOTE | 2017-06-04 16:20 | HHI.NPPN ---
Subjective History of Present Illness This patient is a 62-year-old male with a history of noncompliance with medical instruction, previous crack usage, hypertension, coronary disease with previous stent and now status post 2 vessel CABG May 27, 2017. Patient initially presented to this institution on May 26 with chest pain subsequently diagnosed as having non-ST [place]. On presentation creatinine level was noted to be 2.4. Prior to this back in April 08, 2017 creatinine level was 1.97. Patient transferred back to the ICU after apparently having TIA May 31. Creatinine level for his hospital course improved slightly to 1.93 May 29 and has now worsened again on day of consultation to a level 2.52. Patient appears to be a very poor historian and somewhat noncooperative during visit. Interval History Patient sitting in a chair. No verbal complaints. Review of Systems Respiratory Lungs: SOB Objective Data Data Vital Signs Date Time Temp Pulse Resp B/P (MAP) Pulse Ox O2 Delivery O2 Flow Rate FiO2 06/04/17 15:54 92 Nasal Cannula 3.00 06/04/17 15:43 95 Nasal Cannula 3.00 06/04/17 15:36 98.4 90 18 138/74 (95) 94 06/04/17 15:00 97 06/04/17 11:28 95 Nasal Cannula 3.00 06/04/17 11:25 98.5 85 18 130/84 (99) 96 06/04/17 11:00 94 06/04/17 10:33 97 Nasal Cannula 3.00 06/04/17 10:33 94 Nasal Cannula 3.00 06/04/17 10:32 95 Nasal Cannula 4.00 06/04/17 09:40 94 Nasal Cannula 4.00 06/04/17 09:30 99 Nasal Cannula 6.00 06/04/17 08:22 92 Nasal Cannula 6.00 06/04/17 07:42 98.0 92 18 142/79 (100) 95 06/04/17 07:13 95 Nasal Cannula 6.00 06/04/17 07:00 97 06/04/17 04:16 98.2 92 18 139/77 (97) 96 06/04/17 03:14 96 Nasal Cannula 6.00 06/04/17 03:13 95 06/03/17 23:17 85 06/03/17 23:12 98.9 83 20 147/91 (109) 96 06/03/17 23:11 96 Nasal Cannula 6.00 06/03/17 21:50 92 Nasal Cannula 6.00 06/03/17 19:42 96 Nasal Cannula 6.00 06/03/17 19:42 98.8 104 20 150/81 (104) 96 06/03/17 19:00 92 06/03/17 18:41 96 143/78 -: 06/04/17 0402 06/04/17 0402 Physical Exam General Appearance: No Acute Distress, Comfortable Pulmonary Resp Exam: Clear Bilaterally, Breath Sounds Equal Cardiology CV Exam: Regular, Normal Sinus Rhythm Gastrointestinal/Abdomen GI Exam: Soft (but mildly distended) Integumentary Skin Exam: Clear, Warm Extremeties Extremities Exam: No Edema Neurologic Neuro Exam: Alert, Awake Psychiatric Psych Exam: Appropriate Responses Assessment/Plan Problem List: (1) Acute renal failure with acute renal cortical necrosis superimposed on stage 3 chronic kidney disease ICD Codes: N17.1 - Acute kidney failure with acute cortical necrosis; N18.3 - Chronic kidney disease, stage 3 (moderate) Status: Acute Plan: Renal ultrasound indicating a mild right hydronephrosis. Patient was having symptoms suggestive of prostatism prior as an outpatient and in house prior to Jacome catheter placement. I will obtain urological opinion tomorrow if okay with primary care physician. Patient may have sustained acute kidney injury related to recent CABG that there may have been an obstructive component also . Renal indices continue to improve. Understands he likely has underlying CKD but remains to be seen where renal functions will stabilize. KCl ordered today Continue Vit D3 HCV PCR pending. UA bland so doubtful any glomerulonephritis We will continue to monitor. (2) Benign hypertension with chronic kidney disease, stage III ICD Codes: I12.9 - Hypertensive chronic kidney disease with stage 1 through stage 4 chronic kidney disease, or unspecified chronic kidney disease; N18.3 - Chronic kidney disease, stage 3 (moderate) Status: Chronic Plan: Suspect patient does have significant chronic kidney disease given his history of hypertension and apparent noncompliance with medical follow-up and medications. High risk for development of nephrosclerosis. Medications should be adjusted for the patient's estimated GFR if clinically indicated. Avoid agents with significant potential for nephrotoxicity possible including NSAIDs for analgesia, iodine contrast agents. Gadolinium is contraindicated if the GFR is below 30. (3) S/P CABG x 2 ICD Codes: Z95.1 - Presence of aortocoronary bypass graft Status: Acute (4) Noncompliance with medication regimen ICD Codes: Z91.14 - Patient's other noncompliance with medication regimen Status: Chronic Plan: As above (5) HTN (hypertension) ICD Codes: I10 - Essential (primary) hypertension Status: Chronic Plan The exam, history, and the medical decision-making described in the above note were completed with the assistance of the TRAVIS. I reviewed and agree with the findings presented. Evelina Kiran MD Jun 04, 2017 16:20
[2017-06-04] MEDS ORDERED: POTASSIUM CHLORIDE 10 MEQ CONTROLLED RELEASE TAB PO ONE (16:30)
[2017-06-04] MEDS: WARFARIN SOD 5 MG TAB PO SCH (16:42)
[2017-06-04] MEDS: hydrALAZINE HCL 20 MG/ML VIAL IV PUSH PRN (16:49)
[2017-06-04] MEDS: TAMSULOSIN HCL 0.4 MG CAP PO SCH (20:23)
[2017-06-04] MEDS: ATORVASTATIN 40 MG TAB PO SCH (20:24)
[2017-06-04] MEDS: SENNOSIDES 8.6 MG TAB PO SCH (20:26)
[2017-06-04] MEDS: MIRTAZAPINE 15 MG TAB PO SCH (20:26)
[2017-06-05] VITALS (27 sets, daily range): BP systolic 119–149; BP diastolic 72–87; PULSE 79–100; RESP 16–20; TEMP 98–98.9; O2SAT 95–100
[2017-06-05] MEDS: RESP: IPRATROPIUM 0.5 MG/2.5 ML NEB NEB SCH ×4 (03:36→20:00)
[2017-06-05] MEDS: hydrALAZINE HCL 25 MG TAB PO SCH ×3 (06:00→14:00)
[2017-06-05 06:26] LABS: HEMATOCRIT 34.1 % (39.0-51.0); MEAN CORPUSCULAR HEMOGLOBIN 28.6 PG (27.0-34.0); MEAN CORPUSCULAR HGB CONC 32.9 % (32.0-36.0); PLATELET COUNT 194 TH/MM3 (150-450); RED BLOOD COUNT 3.93 MIL/MM3 (4.50-5.90); RED CELL DISTRIBUTION WIDTH 15.9 % (11.6-17.2); WHITE BLOOD COUNT 6.4 TH/MM3 (4.0-11.0)
[2017-06-05 06:38] LABS: APTT (PATIENT) 73.4 SEC (24.3-30.1); INTERNATIONAL NORMALIZED RATIO 1.7 RATIO; PROTHROMBIN TIME - PATIENT 16.7 SEC (9.8-11.6)
[2017-06-05 06:40] LABS: HEMO FLAGS AUTO DIFF
[2017-06-05] MEDS: PANTOPRAZOLE SOD 40 MG DELAYED RELEASE TAB PO SCH (06:41)
[2017-06-05 06:42] LABS: BICARBONATE 29.6 MEQ/L (21.0-32.0); POTASSIUM 3.8 MEQ/L (3.5-5.1)
[2017-06-05] MEDS: INSULIN ASPART SUPPLEMENTAL SCALE SQ SCH ×4 (08:00→21:00)
[2017-06-05 08:06] LABS: EOSINOPHILS 2 % (0-4); MYELOCYTES 1 % (0-0); PLATELET ESTIMATE SMEAR NORMAL (NORMAL); PLATELET MORPHOLOGY NORMAL (NORMAL); POLYS (SEG NEUTROPHILS) 61 % (16-70); SCAN/DIFF FINAL DIFF MANUAL; WBC DIFF SAMPLE 100
[2017-06-05] MEDS: HEPARIN-D5W 25,000 U/250 ML 250 ML IV PRN (09:27)
[2017-06-05] MEDS: FUROSEMIDE 40 MG/4 ML VIAL IV PUSH SCH (09:28)
[2017-06-05] MEDS: CHOLECALCIFEROL (VIT D3) 1000 UNIT TAB PO SCH (09:29)
[2017-06-05] MEDS: MULTIVITAMINS/MINERALS THERAPEUTIC TAB PO SCH (09:29)
[2017-06-05] MEDS: ASPIRIN 325 MG TAB PO SCH (09:29)
[2017-06-05] MEDS: DOCUSATE SODIUM 100 MG CAP PO SCH ×2 (09:29→21:00)
[2017-06-05] MEDS: POLYETHYLENE GLYCOL 17 GM PKG PO SCH (09:29)
[2017-06-05] MEDS: SODIUM CHLORIDE 0.9% FLUSH 10 ML FLUSH IV FLUSH SCH ×2 (09:30→21:00)
[2017-06-05] MEDS: METOPROLOL TARTRATE 50 MG TAB PO SCH ×2 (09:37→21:33)
[2017-06-05] MEDS: AMIODARONE 200 MG TAB PO SCH ×2 (09:37→21:36)
[2017-06-05] MEDS: CITALOPRAM HYDROBROMIDE 20 MG TAB PO SCH (11:21)
--- NOTE | 2017-06-05 11:38 | PD.CAR.PN ---
CVT Progress Note Subjective/Hospital Course: 62/ male presented to the emergency room complaining of chest pain off and on for the past week associated with some diaphoresis, sharp pains lasting sometimes 10 minutes. No shortness of breath. History of previous [place] and stent in [place] to the LAD. He was recently placed on Effient by his primary care but he has been noncompliant or ran out of it in the past week. Blood pressure on arrival was 190/100. His troponin was 1.76, creatinine 2.40. The patient underwent cardiac cath for a non-STEMI which revealed an ejection fraction of 60%. The right coronary artery was a nondominant lesion, patent, nonobstructive. The left main showed no disease. The left anterior descending had patent stents distally, however, there was a significant 99% stenosis. The left circumflex had a proximal lesion of 90%. We were consulted to evaluate for coronary artery bypass grafting. PAST MEDICAL HISTORY: Hypertension, Coronary artery disease ( stent ) , Tobacco abuse, History of crack cocaine abuse, but that was 4 years ago. 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 Nothing acute pt on full dose ASA and Plavix transferred back to CVICU with neuro checks, eval by neurology and followed by [employer] 06/01 pt somewhat confused, required placement of restraints to avoid pulling out chest tubes required full assistance to get OOB, has speech, PT and OT will need rehab placement at discharge chest tubes drained 200cc/ still requiring high 02 requirement K+ 5.8/ lasix 80mg IV x 1, Kayexalate po recheck K+ this afternoon 06/02 pt less confused, remains on partial NRB mask needs aggressive pulm toileting lasix IV x 1 appreciate consultants went into afib RVR last pm started on amiodarone gtt discussed with cardiology, will start heparin and coumadin , INR goal 2-3 chest tubes dc without difficulty 06/03 Doing better On NC In NSR Monitor in ICU. Likely transfer to CPCU tomorrow 06/04 Doing well Weaning Oxygen. On 6L NC Transfer to CPCU when bed available Remains on Heparin gtt. 06/05 INR 1.7, will increase dose of coumadin / dc Heparin when INR > 2.0 more alert and oriented , eval for possible transfer to rehab tomorrow await urology eval, cates remains in place remains anton afib, rate 110 BB increased , po amiodarone started Objective: GENERAL: more alert and oriented SKIN: Warm and dry.prevena to chest HEAD: Normocephalic. EYES: No scleral icterus. No injection or drainage. NECK: Supple, trachea midline. No JVD or lymphadenopathy. CARDIOVASCULAR: irregular rate and rhythm without murmurs, gallops, or rubs. RESPIRATORY: Breath sounds equal bilaterally. No accessory muscle use. diminished in bases GASTROINTESTINAL: Abdomen soft, non-tender, nondistended. MUSCULOSKELETAL: No cyanosis, or edema. BACK: Nontender without obvious deformity. No CVA tenderness. Vital Signs Date Time Temp Pulse Resp B/P (MAP) Pulse Ox O2 Delivery O2 Flow Rate FiO2 06/05/17 11:23 98.1 94 18 119/76 (90) 100 06/05/17 08:00 97 Nasal Cannula 3.00 06/05/17 07:52 95 Nasal Cannula 3.00 06/05/17 07:50 98.0 98 18 149/87 (107) 99 06/05/17 07:00 100 06/05/17 06:00 98 06/05/17 05:00 98.9 97 16 137/77 (97) 98 06/05/17 05:00 97 06/05/17 04:00 94 06/05/17 03:36 97 Nasal Cannula 3.00 06/05/17 03:26 97 Nasal Cannula 3.00 06/05/17 03:00 96 06/05/17 02:00 98 06/05/17 01:47 96 Nasal Cannula 3.00 06/05/17 01:00 98 06/05/17 00:00 92 06/04/17 23:30 99.0 95 16 155/88 (110) 96 06/04/17 23:00 123 06/04/17 22:00 96 06/04/17 21:00 112 06/04/17 20:00 119 06/04/17 20:00 95 Nasal Cannula 3.00 06/04/17 20:00 99.2 105 16 125/76 (92) 95 06/04/17 19:00 108 06/04/17 15:54 92 Nasal Cannula 3.00 06/04/17 15:43 95 Nasal Cannula 3.00 06/04/17 15:36 98.4 90 18 138/74 (95) 94 06/04/17 15:00 97 Labs: Laboratory Tests Test 06/05/17 05:20 White Blood Count 6.4 TH/MM3 (4.0-11.0) Red Blood Count 3.93 MIL/MM3 (4.50-5.90) Hemoglobin 11.2 GM/DL (13.0-17.0) Hematocrit 34.1 % (39.0-51.0) Mean Corpuscular Volume 87.0 FL (80.0-100.0) Mean Corpuscular Hemoglobin 28.6 PG (27.0-34.0) Mean Corpuscular Hemoglobin Concent 32.9 % (32.0-36.0) Red Cell Distribution Width 15.9 % (11.6-17.2) Platelet Count 194 TH/MM3 (150-450) Mean Platelet Volume 7.3 FL (7.0-11.0) CBC Comment AUTO DIFF Differential Total Cells Counted 100 Neutrophils % (Manual) 61 % (16-70) Lymphocytes % 20 % (9-44) Monocytes % 16 % (0-8) Eosinophils % 2 % (0-4) Neutrophils # (Manual) 4.0 TH/MM3 (1.8-7.7) Myelocytes 1 % (0-0) Differential Comment FINAL DIFF MANUAL Platelet Estimate NORMAL (NORMAL) Platelet Morphology Comment NORMAL (NORMAL) Red Cell Morphology Comment NORMAL (NORMAL) Prothrombin Time 16.7 SEC (9.8-11.6) Prothromb Time International Ratio 1.7 RATIO Activated Partial Thromboplast Time 73.4 SEC (24.3-30.1) Blood Urea Nitrogen 38 MG/DL (7-18) Creatinine 2.29 MG/DL (0.60-1.30) Random Glucose 92 MG/DL (74-106) Calcium Level 8.3 MG/DL (8.5-10.1) Sodium Level 138 MEQ/L (136-145) Potassium Level 3.8 MEQ/L (3.5-5.1) Chloride Level 101 MEQ/L (98-107) Carbon Dioxide Level 29.6 MEQ/L (21.0-32.0) Anion Gap 7 MEQ/L (5-15) Estimat Glomerular Filtration Rate 35 ML/MIN (>89) Result Diagram: 06/05/1751906/05/17519 (1) NSTEMI (non-ST elevated myocardial infarction) (2) S/P CABG (coronary artery bypass graft) Plan: ASA, statin , BB amiodarone pulm toileting nebs ezpap acapella eval for rehab at discharge (3) Tobacco abuse Plan: smoking cessation (4) HTN (hypertension) Plan: on BB, hydralazine and norvasc ,hold meds for SBP < 150 (5) ISABELLA (acute kidney injury) Plan: creatinine stable, avoid nephrotoxics meds 2.29 hyperkalemia > resolved (6) TIA (transient ischemic attack) Plan: TIA, no new symptoms evidence of prior CVA on heparin , baby ASA and coumadin (7) Afib Plan: Heparin and coumadin , goal 2-3 (8) Crack cocaine use (9) Urinary retention Plan: still cates cath n place, await urology consult Arline Finley Jun 05, 2017 11:38
--- NOTE | 2017-06-05 12:49 | HHI.NPPN ---
Subjective History of Present Illness This patient is a 62-year-old male with a history of noncompliance with medical instruction, previous crack usage, hypertension, coronary disease with previous stent and now status post 2 vessel CABG May 27, 2017. Patient initially presented to this institution on May 26 with chest pain subsequently diagnosed as having non-ST [place]. On presentation creatinine level was noted to be 2.4. Prior to this back in April 08, 2017 creatinine level was 1.97. Patient transferred back to the ICU after apparently having TIA May 31. Creatinine level for his hospital course improved slightly to 1.93 May 29 and has now worsened again on day of consultation to a level 2.52. Patient appears to be a very poor historian and somewhat noncooperative during visit. Review of Systems Respiratory Lungs: SOB Objective Data Data Vital Signs Date Time Temp Pulse Resp B/P (MAP) Pulse Ox O2 Delivery O2 Flow Rate FiO2 06/05/17 11:23 98.1 94 18 119/76 (90) 100 06/05/17 08:00 97 Nasal Cannula 3.00 06/05/17 07:52 95 Nasal Cannula 3.00 06/05/17 07:50 98.0 98 18 149/87 (107) 99 06/05/17 07:00 100 06/05/17 06:00 98 06/05/17 05:00 98.9 97 16 137/77 (97) 98 06/05/17 05:00 97 06/05/17 04:00 94 06/05/17 03:36 97 Nasal Cannula 3.00 06/05/17 03:26 97 Nasal Cannula 3.00 06/05/17 03:00 96 06/05/17 02:00 98 06/05/17 01:47 96 Nasal Cannula 3.00 06/05/17 01:00 98 06/05/17 00:00 92 06/04/17 23:30 99.0 95 16 155/88 (110) 96 06/04/17 23:00 123 06/04/17 22:00 96 06/04/17 21:00 112 06/04/17 20:00 119 06/04/17 20:00 95 Nasal Cannula 3.00 06/04/17 20:00 99.2 105 16 125/76 (92) 95 06/04/17 19:00 108 06/04/17 15:54 92 Nasal Cannula 3.00 06/04/17 15:43 95 Nasal Cannula 3.00 06/04/17 15:36 98.4 90 18 138/74 (95) 94 06/04/17 15:00 97 -: 06/05/17 0520 06/05/17 0520 Physical Exam General Appearance: No Acute Distress, Comfortable Pulmonary Resp Exam: Clear Bilaterally, Breath Sounds Equal Cardiology CV Exam: Regular, Normal Sinus Rhythm Gastrointestinal/Abdomen GI Exam: Soft (but mildly distended) Integumentary Skin Exam: Clear, Warm Extremeties Extremities Exam: No Edema Neurologic Neuro Exam: Alert, Awake Psychiatric Psych Exam: Appropriate Responses Assessment/Plan Problem List: (1) Acute renal failure with acute renal cortical necrosis superimposed on stage 3 chronic kidney disease ICD Codes: N17.1 - Acute kidney failure with acute cortical necrosis; N18.3 - Chronic kidney disease, stage 3 (moderate) Status: Acute Plan: Renal ultrasound indicating a mild right hydronephrosis. Patient was having symptoms suggestive of prostatism prior as an outpatient and in house prior to Jacome catheter placement. Await urological consult. Patient may have sustained acute kidney injury related to recent CABG that there may have been an obstructive component also . Renal indices relatively stable since yesterday. This may be the patient's new baseline. Continue Vit D3 HCV PCR pending. UA bland so doubtful any glomerulonephritis. If hepatitis C PCR test positive patient will require GI evaluation either in-house or as an outpatient. Defer to primary care in decision. (2) Benign hypertension with chronic kidney disease, stage III ICD Codes: I12.9 - Hypertensive chronic kidney disease with stage 1 through stage 4 chronic kidney disease, or unspecified chronic kidney disease; N18.3 - Chronic kidney disease, stage 3 (moderate) Status: Chronic Plan: Suspect patient does have significant chronic kidney disease given his history of hypertension and apparent noncompliance with medical follow-up and medications. High risk for development of nephrosclerosis. Medications should be adjusted for the patient's estimated GFR if clinically indicated. Avoid agents with significant potential for nephrotoxicity possible including NSAIDs for analgesia, iodine contrast agents. Gadolinium is contraindicated if the GFR is below 30. (3) S/P CABG x 2 ICD Codes: Z95.1 - Presence of aortocoronary bypass graft Status: Acute (4) Noncompliance with medication regimen ICD Codes: Z91.14 - Patient's other noncompliance with medication regimen Status: Chronic Plan: As above (5) HTN (hypertension) ICD Codes: I10 - Essential (primary) hypertension Status: Chronic Evelina Kiran MD Jun 05, 2017 12:49
--- NOTE | 2017-06-05 13:21 | MB ---
cc: KANDACE APPIAH DATE OF CONSULTATION 06/05/2017 REASON FOR CONSULTATION Mr. Perez is a 62-year-old male who has a history of hypertension and coronary artery disease who presented with a non-ST CT who underwent cardiac catheterization and then underwent CABG x2 on May 30, 2017. The patient was recently seen by nephrology and an ultrasound was ordered demonstrating a mild degree of right-sided hydronephrosis with increased echotexture of the renal parenchyma suggestive of medical renal disease. The patient does have underlying renal insufficiency with a baseline creatinine of approximately two per the record. His creatinine today is 2.29. He does admit to a history of an enlarged prostate and has had prior symptoms of prostatism and was placed on Flomax per his primary care doctor. He states he was getting up five to six times at night with a weak stream and incomplete emptying with postvoid dribbling. He denies any infections or gross hematuria or stones. PAST MEDICAL HISTORY His medical history includes: 1. Hypertension 2. Heart disease 3. Chronic kidney disease 4. BPH with obstruction PAST SURGICAL HISTORY Notable for a CABG x2 on this admission and a PTCA. ALLERGIES HE HAS ALLERGIES TO MORPHINE. Medication For medications, please refer to the chart. FAMILY HISTORY He denies any family history of prostate cancer. SOCIAL HISTORY He has crack cocaine user in the past, smokes one pack per day. Occasional alcohol. REVIEW OF SYSTEMS Presently denies chest pain or shortness of breath. Denies abdominal pain. Denies bleeding disorders, gait disturbances, psychiatric problems. The remaining review of systems were reviewed and were negative. PHYSICAL EXAM VITAL SIGNS: Temperature is 98.1, heart rate 94, respiratory rate 18, blood pressure 119/76. GENERAL: He is well-developed, well-nourished 62-year-old man in acute distress. HEENT: Normocephalic, atraumatic. Pupils equal, round, regular and react to light. Extraocular movements intact. NECK: Supple. HEART: Regular rate and rhythm. LUNGS: Clear. ABDOMEN: Soft, nontender, and nondistended. : Normal phallus. Testes are descended. Jacome catheter is in place. EXTREMITIES: Show no evidence of cyanosis, clubbing or edema. NEUROLOGIC: Cranial nerves II-XII are intact. PSYCH: Generalized mood. LABORATORY DATA White count 6.4, hemoglobin 11.2, hematocrit 34.1, platelet of 194. Sodium 138, potassium 3.8, chloride 101, CO2 29.6, BUN 38, creatinine 2.29, glucose of 92. Urinalysis shows 6 white cells and 2 red cells, small leukoesterase, nitrate is negative. IMAGING STUDIES Mild degree of right-sided hydronephrosis is noted. ASSESSMENT This is a 62-year-old male status post CABG x2 with a history of chronic underlying kidney disease with a creatinine in the 2 range with history of BPH with obstruction. Would recommend doubling Flomax to 0.8 mg p.o. q.h.s. and give a void trial in the next few days. No intervention required for the moderate right-sided hydronephrosis. Would observed and follow up with an ultrasound in the next three months. With that, he can follow up as an outpatient for that. Thank you for the consult and allowing me to participate in the care of this patient. Kandace GAVLIN /12:52 PM /1:06 PM
[2017-06-05] MEDS: TAMSULOSIN HCL 0.4 MG CAP PO SCH ×2 (15:36→21:35)
[2017-06-05] MEDS: WARFARIN SOD 7.5 MG TAB PO SCH (16:54)
[2017-06-05] MEDS: SENNOSIDES 8.6 MG TAB PO SCH (21:00)
[2017-06-05] MEDS: ATORVASTATIN 40 MG TAB PO SCH (21:33)
[2017-06-05] MEDS: MIRTAZAPINE 15 MG TAB PO SCH (21:35)
[2017-06-05 22:34] LABS: ALBUMIN SPE 3.29 GM/DL (3.50-5.00); ALPHA 1 GLOBULIN 0.44 GM/DL (0.11-0.29)
[2017-06-05 22:35] LABS: ALPHA 2 GLOBULIN 0.85 GM/DL (0.22-1.00); BETA GLOBULINS (SPE) 0.73 GM/DL (0.53-1.03)
[2017-06-06] VITALS (26 sets, daily range): BP systolic 118–147; BP diastolic 68–83; PULSE 72–113; RESP 17–18; TEMP 97.9–99.4; O2SAT 93–97
[2017-06-06 06:05] LABS: INTERNATIONAL NORMALIZED RATIO 2.2 RATIO; PROTHROMBIN TIME - PATIENT 22.7 SEC (9.8-11.6)
[2017-06-06 06:17] LABS: BICARBONATE 30.9 MEQ/L (21.0-32.0); POTASSIUM 4.1 MEQ/L (3.5-5.1)
[2017-06-06] MEDS: PANTOPRAZOLE SOD 40 MG DELAYED RELEASE TAB PO SCH (07:30)
[2017-06-06] MEDS: MULTIVITAMINS/MINERALS THERAPEUTIC TAB PO SCH (09:00)
[2017-06-06] MEDS: FUROSEMIDE 40 MG/4 ML VIAL IV PUSH SCH (09:00)
[2017-06-06] MEDS: SODIUM CHLORIDE 0.9% FLUSH 10 ML FLUSH IV FLUSH SCH ×2 (09:00→20:41)
[2017-06-06] MEDS: POLYETHYLENE GLYCOL 17 GM PKG PO SCH (09:00)
[2017-06-06] MEDS: TAMSULOSIN HCL 0.4 MG CAP PO SCH ×2 (09:09→20:39)
[2017-06-06] MEDS: METOPROLOL TARTRATE 50 MG TAB PO SCH ×2 (09:10→20:40)
[2017-06-06] MEDS: CHOLECALCIFEROL (VIT D3) 1000 UNIT TAB PO SCH (09:11)
[2017-06-06] MEDS: CITALOPRAM HYDROBROMIDE 20 MG TAB PO SCH (09:11)
[2017-06-06] MEDS: AMIODARONE 200 MG TAB PO SCH ×2 (09:11→20:39)
[2017-06-06] MEDS: DOCUSATE SODIUM 100 MG CAP PO SCH ×2 (09:12→20:39)
--- NOTE | 2017-06-06 09:26 | HHI.NPPN ---
Subjective History of Present Illness This patient is a 62-year-old male with a history of noncompliance with medical instruction, previous crack usage, hypertension, coronary disease with previous stent and now status post 2 vessel CABG May 27, 2017. Patient initially presented to this institution on May 26 with chest pain subsequently diagnosed as having non-ST ND. On presentation creatinine level was noted to be 2.4. Prior to this back in April 08, 2017 creatinine level was 1.97. Patient transferred back to the ICU after apparently having TIA May 31. Creatinine level for his hospital course improved slightly to 1.93 May 29 and has now worsened again on day of consultation to a level 2.52. Patient appears to be a very poor historian and somewhat noncooperative during visit. Interval History Pt sitting up in chair on . No new complaints. Potentially being discharged today to rehab Objective Data Data Vital Signs Date Time Temp Pulse Resp B/P (MAP) Pulse Ox O2 Delivery O2 Flow Rate FiO2 06/06/17 07:45 99.4 80 18 122/71 (88) 97 06/06/17 07:45 96 Nasal Cannula 2.00 06/06/17 07:45 80 06/06/17 05:00 78 06/06/17 04:00 72 06/06/17 03:55 99 Nasal Cannula 2.00 06/06/17 03:00 73 06/06/17 02:00 78 06/06/17 01:00 82 06/06/17 00:30 99 Nasal Cannula 2.00 06/06/17 00:00 90 06/05/17 23:00 79 06/05/17 23:00 98.6 84 16 141/85 (103) 98 06/05/17 22:00 80 06/05/17 21:00 82 06/05/17 20:30 97 Nasal Cannula 3.00 06/05/17 20:12 95 Nasal Cannula 3.00 06/05/17 20:00 88 06/05/17 20:00 98.3 87 16 139/84 (102) 99 06/05/17 19:00 91 06/05/17 15:32 98 Nasal Cannula 2.00 06/05/17 15:30 98.4 81 20 121/72 (88) 98 06/05/17 15:00 80 06/05/17 14:00 86 06/05/17 13:00 88 06/05/17 12:00 98 Nasal Cannula 3.00 06/05/17 12:00 94 06/05/17 11:23 98.1 94 18 119/76 (90) 100 06/05/17 11:00 80 06/05/17 10:00 90 -: 06/05/17 0520 06/06/17 0444 Imaging Last Impressions Chest X-Ray 06/03/17 0600 Signed Impressions: Service Date/Time: Saturday, June 03, 2017 04:37 - CONCLUSION: Stable patchy infiltrates. Srikanth Cole MD Renal Ultrasound 06/01/17 0000 Signed Impressions: Service Date/Time: Friday, June 02, 2017 14:07 - CONCLUSION: 1. Mild degree of right hydronephrosis. 2. There is increased echotexture of the renal parenchyma suggesting medical renal disease. Maikol Ferrara MD Head CT 05/31/17 0000 Signed Impressions: Service Date/Time: Wednesday, May 31, 2017 16:31 - CONCLUSION: 1. 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 2. Possible punctate lacunar type infarct in the posterior limb of left internal capsule. Nothing acute 3. Small retention cyst left maxillary antrum. Kiran Acosta MD Lower Extremity Ultrasound 05/29/17 1217 Signed Impressions: Service Date/Time: Monday, May 29, 2017 13:18 - CONCLUSION: 1. Venous mapping as above. 2. Nonvisualization of the left greater saphenous vein just above the knee peripherally. This may represent prior venous ablation. Kiran Acosta MD Carotid Artery Ultrasound 05/28/17 0000 Signed Impressions: Service Date/Time: Sunday, May 28, 2017 18:20 - CONCLUSION: Bilateral carotid bifurcation atherosclerosis, trace on the right and mild on the left. No hemodynamically significant narrowing. Maikol Monique MD Medication Review Current Medications Medications (Trade) Dose Ordered Sig/Fer Route Start Time Stop Time Status Last Admin (Tylenol) 650 mg Q6H PRN PO 05/26/17 20:45 (Lactulose Liq) 30 ml DAILY PRN PO 05/26/17 20:45 (CeleXA) 20 mg DAILY PO 05/27/17 09:00 06/06/17 09:11 (Pill Splitter) 1 ea UNSCH PRN OTHER 05/27/17 02:00 (Apresoline) 25 mg Q8HR PO 05/28/17 14:00 06/04/17 20:23 (Remeron) 15 mg HS PO 05/28/17 21:00 06/05/17 21:35 (Lipitor) 80 mg HS PO 05/28/17 21:00 06/05/17 21:33 (NS Flush) 2 ml BID IV FLUSH 05/30/17 21:00 06/05/17 09:30 (NS Flush) 2 ml UNSCH PRN IV FLUSH 05/30/17 16:30 06/03/17 00:17 (Protonix) 40 mg DAILY@06 PO 05/31/17 06:00 06/05/17 06:41 (Tylenol) 650 mg Q4H PRN PO 05/30/17 16:30 (Zofran Inj) 4 mg Q6H PRN IV PUSH 05/30/17 16:30 (Apresoline Inj) 10 mg Q4H PRN IV PUSH 05/30/17 16:30 06/04/17 16:49 (Colace) 100 mg BID PO 05/31/17 21:00 06/06/17 09:12 (Theragran M Tab) 1 tab DAILY PO 05/31/17 09:00 06/05/17 09:29 (Dulcolax Supp) 10 mg UNSCH PRN RECTAL 05/31/17 08:45 (Miralax) 17 gm DAILY PO 06/01/17 09:00 06/05/17 09:29 (Senokot) 8.6 mg HS PO 05/31/17 21:00 06/04/17 20:26 (Fleets Enema (Adult)) 118 ml UNSCH PRN RECTAL 05/31/17 08:45 (NovoLOG SUPPLEMENTAL SCALE) 1 ACHS SQ 05/31/17 17:00 (D50w (Vial) Inj) 50 ml UNSCH PRN IV PUSH 05/31/17 17:00 (Glucagon Inj) 1 mg UNSCH PRN OTHER 05/31/17 17:00 (Lopressor Inj) 5 mg Q5M PRN IV PUSH 06/01/17 23:45 (Heparin Inj) 5,000 units UNSCH PRN IV PUSH 06/02/17 15:15 (Heparin Inj) 2,500 units UNSCH PRN IV PUSH 06/02/17 15:15 Heparin Sodium/ Dextrose 250 ml @ 10 mls/hr TITRATE PRN IV 06/02/17 13:00 06/05/17 09:27 (Aspirin) 81 mg DAILY PO 06/03/17 09:00 06/05/17 09:29 (Lasix Inj) 40 mg DAILY IV PUSH 06/02/17 12:00 06/05/17 09:28 (Vitamin D3) 2,000 units DAILY PO 06/03/17 09:00 06/06/17 09:11 (Atrovent Neb) 0.5 mg Q6HR WHILE AWAKE NEB NEB 06/05/17 14:00 06/05/17 14:14 (Lopressor) 75 mg Q12HR PO 06/05/17 09:00 06/06/17 09:10 (Cordarone) 400 mg Q12HR PO 06/05/17 09:00 06/06/17 09:11 (Coumadin) 7.5 mg DAILY@1600 PO 06/05/17 16:00 06/05/17 16:54 (Flomax) 0.4 mg Q12HR PO 06/05/17 13:00 06/06/17 09:09 Physical Exam General Appearance: No Acute Distress, Comfortable Pulmonary Resp Exam: Clear Bilaterally, Breath Sounds Equal Cardiology CV Exam: Regular, Normal Sinus Rhythm Gastrointestinal/Abdomen GI Exam: Soft (but mildly distended) Integumentary Skin Exam: Clear, Warm Extremeties Extremities Exam: No Edema Neurologic Neuro Exam: Alert, Awake Psychiatric Psych Exam: Appropriate Responses Assessment/Plan Problem List: (1) Acute renal failure with acute renal cortical necrosis superimposed on stage 3 chronic kidney disease ICD Codes: N17.1 - Acute kidney failure with acute cortical necrosis; N18.3 - Chronic kidney disease, stage 3 (moderate) Status: Acute Plan: Renal indices relatively stable since yesterday. This may be the patient 's new baseline. Underlying CKD likely related to hypertensive nephrosclerosis Urology consult reviewed--increased Flomax and advised to f/u as outpatient. Will potentially be discharged to rehab today. Was advised of the severity of his renal decline and did advise that he see sound assistant as an outpatient, but seemed hesitant about this. Otherwise, would recommend close follow up by PCP. Continue Vit D3 HCV PCR pending. UA bland so doubtful any glomerulonephritis. If hepatitis C PCR test positive patient will require GI evaluation either in-house or as an outpatient. Defer to primary care in decision. (2) Benign hypertension with chronic kidney disease, stage III ICD Codes: I12.9 - Hypertensive chronic kidney disease with stage 1 through stage 4 chronic kidney disease, or unspecified chronic kidney disease; N18.3 - Chronic kidney disease, stage 3 (moderate) Status: Chronic Plan: Suspect patient does have significant chronic kidney disease given his history of hypertension and apparent noncompliance with medical follow-up and medications. High risk for development of nephrosclerosis. Medications should be adjusted for the patient's estimated GFR if clinically indicated. Avoid agents with significant potential for nephrotoxicity possible including NSAIDs for analgesia, iodine contrast agents. Gadolinium is contraindicated if the GFR is below 30. (3) S/P CABG x 2 ICD Codes: Z95.1 - Presence of aortocoronary bypass graft Status: Acute (4) Noncompliance with medication regimen ICD Codes: Z91.14 - Patient's other noncompliance with medication regimen Status: Chronic Plan: As above (5) HTN (hypertension) ICD Codes: I10 - Essential (primary) hypertension Status: Chronic Kathy Melvin Jun 06, 2017 09:25
[2017-06-06] MEDS: RESP: IPRATROPIUM 0.5 MG/2.5 ML NEB NEB SCH ×3 (09:33→21:57)
[2017-06-06] MEDS ORDERED: HYDR-3799 PO (10:28)
[2017-06-06] MEDS ORDERED: ATOR40TA16 PO (10:28)
[2017-06-06] MEDS ORDERED: TAMS5CAP PO (10:28)
[2017-06-06] MEDS ORDERED: THERM PO (10:28)
[2017-06-06] MEDS ORDERED: MIRTA15 PO (10:28)
[2017-06-06] MEDS ORDERED: FURO1TAB60 PO (10:28)
[2017-06-06] MEDS ORDERED: DOCU1CAP39 PO (10:28)
[2017-06-06] MEDS ORDERED: TYLE325T PO (10:28)
[2017-06-06] MEDS ORDERED: COUM7.5T PO (10:28)
[2017-06-06] MEDS ORDERED: ASA325 PO (10:28)
[2017-06-06] MEDS ORDERED: PANT40TA3 PO (10:28)
[2017-06-06] MEDS ORDERED: METO-309 PO (10:28)
[2017-06-06] MEDS ORDERED: COUM5TAB PO (10:32)
--- NOTE | 2017-06-06 10:43 | HHI.DS ---
Discharge Summary Admission Date May 26, 2017 at 20:41 Admitting Diagnosis NSTEMI (1) NSTEMI (non-ST elevated myocardial infarction) Diagnosis: Principal ICD Codes: I21.4 - Non-ST elevation (NSTEMI) myocardial infarction (2) ISABELLA (acute kidney injury) Diagnosis: Principal ICD Codes: N17.9 - Acute kidney failure, unspecified (3) HTN (hypertension) Diagnosis: Principal ICD Codes: I10 - Essential (primary) hypertension Status: Chronic (4) Tobacco abuse Diagnosis: Principal ICD Codes: Z72.0 - Tobacco use Status: Chronic (5) Crack cocaine use ICD Codes: F14.90 - Cocaine use, unspecified, uncomplicated (6) S/P CABG x 2 Diagnosis: Secondary ICD Codes: Z95.1 - Presence of aortocoronary bypass graft Status: Acute Procedures CABG x 2 05/30 AGUILAR to LAD - fair SVG to OM - good EVH (right) Brief History 62/ male presented to the emergency room complaining of chest pain off and on for the past week associated with some diaphoresis, sharp pains lasting sometimes 10 minutes. No shortness of breath. History of previous PR and stent in [place] to the LAD. He was recently placed on Effient by his primary care but he has been noncompliant or ran out of it in the past week. Blood pressure on arrival was 190/100. His troponin was 1.76, creatinine 2.40. The patient underwent cardiac cath for a non-STEMI which revealed an ejection fraction of 60%. The right coronary artery was a nondominant lesion, patent, nonobstructive. The left main showed no disease. The left anterior descending had patent stents distally, however, there was a significant 99% stenosis. The left circumflex had a proximal lesion of 90%. We were consulted to evaluate for coronary artery bypass grafting. PAST MEDICAL HISTORY: Hypertension, Coronary artery disease ( stent ) , Tobacco abuse, History of crack cocaine abuse, but that was 4 years ago. His urine drug screen is negative, Depression, anxiety CBC/BMP: 06/05/17 0520 06/06/17 0444 Significant Findings Laboratory Tests Test 06/04/17 04:02 06/04/17 06:57 06/04/17 14:12 06/05/17 05:20 Red Blood Count 3.57 MIL/MM3 (4.50-5.90) 3.93 MIL/MM3 (4.50-5.90) Hemoglobin 10.3 GM/DL (13.0-17.0) 11.2 GM/DL (13.0-17.0) Hematocrit 30.9 % (39.0-51.0) 34.1 % (39.0-51.0) Monocytes (%) (Auto) 14.8 % (0.0-8.0) Monocytes # (Auto) 1.0 TH/MM3 (0-0.9) Prothrombin Time 14.9 SEC (9.8-11.6) 16.7 SEC (9.8-11.6) Activated Partial Thromboplast Time 101.0 SEC (24.3-30.1) 72.0 SEC (24.3-30.1) 67.4 SEC (24.3-30.1) 73.4 SEC (24.3-30.1) Blood Urea Nitrogen 37 MG/DL (7-18) 38 MG/DL (7-18) Creatinine 2.20 MG/DL (0.60-1.30) 2.29 MG/DL (0.60-1.30) Calcium Level 8.1 MG/DL (8.5-10.1) 8.3 MG/DL (8.5-10.1) Potassium Level 3.4 MEQ/L (3.5-5.1) Estimat Glomerular Filtration Rate 37 ML/MIN (>89) 35 ML/MIN (>89) Monocytes % 16 % (0-8) Myelocytes 1 % (0-0) Test 06/06/17 04:44 Prothrombin Time 22.7 SEC (9.8-11.6) Blood Urea Nitrogen 33 MG/DL (7-18) Creatinine 2.27 MG/DL (0.60-1.30) Random Glucose 124 MG/DL (74-106) Estimat Glomerular Filtration Rate 35 ML/MIN (>89) Imaging Last Impressions Chest X-Ray 06/03/17 0600 Signed Impressions: Service Date/Time: Saturday, June 03, 2017 04:37 - CONCLUSION: Stable patchy infiltrates. Srikanth Cole MD Renal Ultrasound 06/01/17 0000 Signed Impressions: Service Date/Time: Friday, June 02, 2017 14:07 - CONCLUSION: 1. Mild degree of right hydronephrosis. 2. There is increased echotexture of the renal parenchyma suggesting medical renal disease. Maikol Ferrara MD Head CT 05/31/17 0000 Signed Impressions: Service Date/Time: Wednesday, May 31, 2017 16:31 - CONCLUSION: 1. 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 2. Possible punctate lacunar type infarct in the posterior limb of left internal capsule. Nothing acute 3. Small retention cyst left maxillary antrum. Kiran Acosta MD Lower Extremity Ultrasound 05/29/17 1217 Signed Impressions: Service Date/Time: Monday, May 29, 2017 13:18 - CONCLUSION: 1. Venous mapping as above. 2. Nonvisualization of the left greater saphenous vein just above the knee peripherally. This may represent prior venous ablation. Kiran Acosta MD Carotid Artery Ultrasound 05/28/17 0000 Signed Impressions: Service Date/Time: Sunday, May 28, 2017 18:20 - CONCLUSION: Bilateral carotid bifurcation atherosclerosis, trace on the right and mild on the left. No hemodynamically significant narrowing. Maikol Monique MD PE at Discharge GENERAL: SKIN: Warm and dry. incision intact and well approximated to chest HEAD: Normocephalic. EYES: No scleral icterus. No injection or drainage. NECK: Supple, trachea midline. No JVD or lymphadenopathy. CARDIOVASCULAR: irregular rate and rhythm without murmurs, gallops, or rubs. RESPIRATORY: diminished in bases Breath sounds equal bilaterally. No accessory muscle use. GASTROINTESTINAL: Abdomen soft, non-tender, nondistended. MUSCULOSKELETAL: No cyanosis, or edema. BACK: Nontender without obvious deformity. No CVA tenderness. 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 Nothing acute pt on full dose ASA and Plavix transferred back to CVICU with neuro checks, eval by neurology and followed by Registered Pharmacist 06/01 pt somewhat confused, required placement of restraints to avoid pulling out chest tubes required full assistance to get OOB, has speech, PT and OT will need rehab placement at discharge chest tubes drained 200cc/ still requiring high 02 requirement K+ 5.8/ lasix 80mg IV x 1, Kayexalate po recheck K+ this afternoon 06/02 pt less confused, remains on partial NRB mask needs aggressive pulm toileting lasix IV x 1 appreciate consultants went into afib RVR last pm started on amiodarone gtt discussed with cardiology, will start heparin and coumadin , INR goal 2-3 chest tubes dc without difficulty 06/03 Doing better On NC In NSR Monitor in ICU. Likely transfer to CPCU tomorrow 06/04 Doing well Weaning Oxygen. On 6L NC Transfer to CPCU when bed available Remains on Heparin gtt. 06/05 INR 1.7, will increase dose of coumadin / dc Heparin when INR > 2.0 more alert and oriented , eval for possible transfer to rehab tomorrow await urology eval, cates remains in place remains in afib, rate 110 BB increased , po amiodarone started 06/06 pt seen and evaluated by Urology , keep cates cath in place has f/u appointment in one week with urology remains in afib, INR 2.2/ coumadin dc heparin stable for dc to rehab Pt Condition on Discharge: Fair Discharge Disposition: Discharge to SNF Discharge Instructions DIET: Follow Instructions for: Heart Healthy Diet, Coumadin (Warfarin) Diet Speech Therapy-Diet Recommenda: Pureed Activities you can perform: Full Weight Bearing, Shower Only-No Bath Activities to avoid: Strenuous Activity, Driving Additional Activity Instructio: nmo lifting > 8 lbs or gallon of milk Follow up Referrals: Appointment for Follow Up Cardiology - 4 Weeks @ [facility] with Chuy De La Garza MD PCP Follow-up - 2 Weeks Surgical - 2 Weeks with Arline Finley New Orders: BASIC METABOLIC PROF - 2 Weeks CBC NO DIFF - 2 Weeks PT/INR - 2-3 Days X-RAY CHEST PA & LAT - 2 Weeks New Medications: Acetaminophen (Tylenol) 325 Mg Tab 650 MG PO Q6H PRN for PAIN SCALE 1 TO 5, #30 TAB 0 Refills Furosemide (Lasix) 40 Mg Tab 40 MG PO DAILY for edema , #7 TAB 0 Refills Warfarin (Coumadin) 5 Mg Tab 5 MG PO DAILY for Blood Clot Prevention, #30 TAB 2 Refills goal 2-3 hold INR > 3.5 Aspirin (Px Aspirin) 325 Mg Tab 81 MG PO DAILY for Blood Clot Prevention, #30 TAB 2 Refills Atorvastatin (Atorvastatin) 40 Mg Tab 80 MG PO HS for Cholesterol Management, #30 TAB 2 Refills Docusate Sodium (Dok) 100 Mg Cap 100 MG PO daily for Constipation, #30 CAP 0 Refills Hydralazine HCl (Hydralazine HCl) 25 Mg Tablet 25 MG PO Q8HR for Blood Pressure Management, #90 TAB 2 Refills Metoprolol Tartrate (Lopressor) 50 Mg Tab 50 MG PO Q12HR for Blood Pressure Management, #60 TAB 2 Refills Mirtazapine (Mirtazapine) 15 Mg Tab 15 MG PO HS for depression, #30 TAB 2 Refills Multiple Vitamins W/ Minerals (Thera M Plus) 1 Tab 1 TAB PO DAILY for vitamin , #30 TAB Pantoprazole (Pantoprazole) 40 Mg Tab 40 MG PO DAILY@06 for gerd, #30 TAB 2 Refills Tamsulosin (Flomax) 0.4 Mg Cap 0.4 MG PO Q12HR for urinary retention , #60 CAP 2 Refills Continued Medications: Citalopram (Citalopram) 20 Mg Tab 20 MG PO DAILY for Control Depression, #30 TAB 0 Refills Discontinued Medications: Atenolol (Atenolol) 50 Mg Tab 50 MG PO BID for Blood Pressure Management, #14 TAB 0 Refills Atorvastatin (Atorvastatin) 10 Mg Tab 10 MG PO HS for Cholesterol Management, #30 TAB 0 Refills Hydrochlorothiazide (Hydrochlorothiazide) 25 Mg Tab 25 MG PO DAILY, #30 TAB 0 Refills Prasugrel (Effient) 10 Mg Tab 10 MG PO DAILY for Blood Clot Prevention, #30 TAB 0 Refills Tamsulosin (Tamsulosin) 0.4 Mg Cap 0.4 MG PO HS for Manage Prostate Problems, #30 CAP 0 Refills [Blood Pressure Med] () Arline Finley Jun 06, 2017 10:43
[2017-06-06] MEDS: INSULIN ASPART SUPPLEMENTAL SCALE SQ SCH ×3 (12:00→20:55)
[2017-06-06] MEDS: hydrALAZINE HCL 25 MG TAB PO SCH ×2 (14:00→22:00)
[2017-06-06] MEDS: WARFARIN SOD 7.5 MG TAB PO SCH (15:55)
[2017-06-06] MEDS: SENNOSIDES 8.6 MG TAB PO SCH (20:39)
[2017-06-06] MEDS: MIRTAZAPINE 15 MG TAB PO SCH (20:40)
[2017-06-06] MEDS: ATORVASTATIN 40 MG TAB PO SCH (20:40)
[2017-06-07] VITALS (22 sets, daily range): BP systolic 107–143; BP diastolic 57–80; PULSE 72–104; RESP 16–20; TEMP 97–98.5; O2SAT 92–96
[2017-06-07] MEDS: PANTOPRAZOLE SOD 40 MG DELAYED RELEASE TAB PO SCH (05:58)
[2017-06-07] MEDS: hydrALAZINE HCL 25 MG TAB PO SCH ×2 (05:58→14:00)
[2017-06-07 06:52] LABS: HEMATOCRIT 32.6 % (39.0-51.0); MEAN CELL VOLUME 85.8 FL (80.0-100.0); MEAN CORPUSCULAR HEMOGLOBIN 28.7 PG (27.0-34.0); MEAN CORPUSCULAR HGB CONC 33.4 % (32.0-36.0); PLATELET COUNT 228 TH/MM3 (150-450); REVIEW FLAG FINAL; WHITE BLOOD COUNT 8.1 TH/MM3 (4.0-11.0)
[2017-06-07 07:11] LABS: INTERNATIONAL NORMALIZED RATIO 2.9 RATIO; PROTHROMBIN TIME - PATIENT 28.8 SEC (9.8-11.6)
[2017-06-07] MEDS: RESP: IPRATROPIUM 0.5 MG/2.5 ML NEB NEB SCH ×2 (07:49→13:58)
[2017-06-07] MEDS: INSULIN ASPART SUPPLEMENTAL SCALE SQ SCH (08:00)
[2017-06-07] MEDS: FUROSEMIDE 40 MG/4 ML VIAL IV PUSH SCH (08:24)
[2017-06-07] MEDS: CHOLECALCIFEROL (VIT D3) 1000 UNIT TAB PO SCH (08:25)
[2017-06-07] MEDS: SODIUM CHLORIDE 0.9% FLUSH 10 ML FLUSH IV FLUSH SCH (08:25)
[2017-06-07] MEDS: AMIODARONE 200 MG TAB PO SCH (08:25)
[2017-06-07] MEDS: CITALOPRAM HYDROBROMIDE 20 MG TAB PO SCH (08:25)
[2017-06-07] MEDS: DOCUSATE SODIUM 100 MG CAP PO SCH (08:25)
[2017-06-07] MEDS: MULTIVITAMINS/MINERALS THERAPEUTIC TAB PO SCH (08:25)
[2017-06-07] MEDS: METOPROLOL TARTRATE 50 MG TAB PO SCH (08:26)
[2017-06-07] MEDS: POLYETHYLENE GLYCOL 17 GM PKG PO SCH (08:31)
[2017-06-07] MEDS: TAMSULOSIN HCL 0.4 MG CAP PO SCH (08:54)
[2017-06-07] MEDS ORDERED: ASPIRIN 81 MG CHEW TAB PO SCH (09:00)
--- NOTE | 2017-06-07 13:49 | PD.CAR.PN ---
CVT Progress Note Subjective/Hospital Course: 62/ male presented to the emergency room complaining of chest pain off and on for the past week associated with some diaphoresis, sharp pains lasting sometimes 10 minutes. No shortness of breath. History of previous VA and stent in [place] to the LAD. He was recently placed on Effient by his primary care but he has been noncompliant or ran out of it in the past week. Blood pressure on arrival was 190/100. His troponin was 1.76, creatinine 2.40. The patient underwent cardiac cath for a non-STEMI which revealed an ejection fraction of 60%. The right coronary artery was a nondominant lesion, patent, nonobstructive. The left main showed no disease. The left anterior descending had patent stents distally, however, there was a significant 99% stenosis. The left circumflex had a proximal lesion of 90%. We were consulted to evaluate for coronary artery bypass grafting. PAST MEDICAL HISTORY: Hypertension, Coronary artery disease ( stent ) , Tobacco abuse, History of crack cocaine abuse, but that was 4 years ago. 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 Nothing acute pt on full dose ASA and Plavix transferred back to CVICU with neuro checks, eval by neurology and followed by Collections Assistant 06/01 pt somewhat confused, required placement of restraints to avoid pulling out chest tubes required full assistance to get OOB, has speech, PT and OT will need rehab placement at discharge chest tubes drained 200cc/ still requiring high 02 requirement K+ 5.8/ lasix 80mg IV x 1, Kayexalate po recheck K+ this afternoon 06/02 pt less confused, remains on partial NRB mask needs aggressive pulm toileting lasix IV x 1 appreciate consultants went into afib RVR last pm started on amiodarone gtt discussed with cardiology, will start heparin and coumadin , INR goal 2-3 chest tubes dc without difficulty 06/03 Doing better On NC In NSR Monitor in ICU. Likely transfer to CPCU tomorrow 06/04 Doing well Weaning Oxygen. On 6L NC Transfer to CPCU when bed available Remains on Heparin gtt. 06/05 INR 1.7, will increase dose of coumadin / dc Heparin when INR > 2.0 more alert and oriented , eval for possible transfer to rehab tomorrow await urology eval, cates remains in place remains anton afib, rate 110 BB increased , po amiodarone started 06/06 discharge summary completed was going to rehab, but denied by [facility] 06/07 pt now wanting to go home will need HHC and PT stable for discharge Objective: Vital Signs Date Time Temp Pulse Resp B/P (MAP) Pulse Ox O2 Delivery O2 Flow Rate FiO2 06/07/17 11:00 94 06/07/17 10:27 92 Nasal Cannula 5.00 06/07/17 10:00 90 06/07/17 09:00 100 06/07/17 08:00 104 06/07/17 07:52 92 Nasal Cannula 1.50 06/07/17 07:30 98.5 104 20 143/80 (101) 94 06/07/17 07:00 80 06/07/17 06:10 80 06/07/17 05:34 79 06/07/17 04:09 79 06/07/17 03:50 92 Nasal Cannula 2.00 06/07/17 03:50 98.0 80 17 123/77 (92) 92 06/07/17 03:40 79 06/07/17 02:00 78 06/07/17 01:19 81 06/07/17 00:13 82 06/06/17 23:50 113 06/06/17 23:10 93 Nasal Cannula 2.00 06/06/17 23:10 98.5 103 18 132/69 (90) 93 06/06/17 22:00 96 06/06/17 21:57 93 Nasal Cannula 1.50 06/06/17 21:00 94 06/06/17 20:00 90 06/06/17 19:15 82 06/06/17 19:15 97.9 87 17 147/82 (103) 94 06/06/17 19:15 Room Air 06/06/17 17:00 90 06/06/17 16:00 84 06/06/17 15:00 97.9 88 18 118/68 (85) 96 06/06/17 15:00 96 Room Air 06/06/17 15:00 86 06/06/17 14:00 84 Labs: Laboratory Tests Test 06/07/17 05:52 White Blood Count 8.1 TH/MM3 (4.0-11.0) Red Blood Count 3.80 MIL/MM3 (4.50-5.90) Hemoglobin 10.9 GM/DL (13.0-17.0) Hematocrit 32.6 % (39.0-51.0) Mean Corpuscular Volume 85.8 FL (80.0-100.0) Mean Corpuscular Hemoglobin 28.7 PG (27.0-34.0) Mean Corpuscular Hemoglobin Concent 33.4 % (32.0-36.0) Red Cell Distribution Width 16.0 % (11.6-17.2) Platelet Count 228 TH/MM3 (150-450) Mean Platelet Volume 6.7 FL (7.0-11.0) Prothrombin Time 28.8 SEC (9.8-11.6) Prothromb Time International Ratio 2.9 RATIO Result Diagram: 06/07/17 0552 06/06/17 0444 (1) NSTEMI (non-ST elevated myocardial infarction) (2) S/P CABG (coronary artery bypass graft) Plan: ASA, statin , BB amiodarone pulm toileting nebs ezpap acapella eval for rehab at discharge (3) Tobacco abuse Plan: smoking cessation (4) HTN (hypertension) Plan: on BB, hydralazine and norvasc ,hold meds for SBP < 150 (5) ISABELLA (acute kidney injury) Plan: creatinine stable, avoid nephrotoxics meds 2.29 hyperkalemia > resolved (6) TIA (transient ischemic attack) Plan: TIA, no new symptoms evidence of prior CVA on heparin , baby ASA and coumadin (7) Afib Plan: Heparin and coumadin , goal 2-3 (8) Crack cocaine use (9) Urinary retention Plan: still cates cath n place, await urology consult Problem Qualifiers (1) Afib: Qualified Codes: I48.0 - Paroxysmal atrial fibrillation Arline Finley Jun 07, 2017 13:49
[2017-06-07] MEDS ORDERED: WARFARIN SOD 5 MG TAB PO SCH (16:00)
[2017-06-08 11:50] LABS: HCV RNA PCR LOGIU/ML 5.87 (0-1.18)
== END 2017-06-07 19:50 | disposition home health service (06) | DRG 233 ==
LOC: NEPC 17:28 → NEDA 20:41 → HCIS 21:54 → HCVI 05-30 17:05 → HCPC 05-31 13:59 → HCVI 05-31 16:50 → HCPC 06-04 17:39
PROVIDERS: ADMIT Thoracic Surgery (Cardiothoracic Vascular Surgery); ATTEND Thoracic Surgery (Cardiothoracic Vascular Surgery)
PROC: 4A023N7 Measurement of Cardiac Sampling and Pressure, Left Heart, Percutaneous Approach (ICD-10-PCS; 2017-05-28)
PROC: B2111ZZ Fluoroscopy of Multiple Coronary Arteries using Low Osmolar Contrast (ICD-10-PCS; 2017-05-28)
PROC: B2151ZZ Fluoroscopy of Left Heart using Low Osmolar Contrast (ICD-10-PCS; 2017-05-28)
PROC: B41F1ZZ Fluoroscopy of Right Lower Extremity Arteries using Low Osmolar Contrast (ICD-10-PCS; 2017-05-28)
PROC: 02100Z9 Bypass Coronary Artery, One Artery from Left Internal Mammary, Open Approach (ICD-10-PCS; 2017-05-30)
PROC: 06BP4ZZ Excision of Right Saphenous Vein, Percutaneous Endoscopic Approach (ICD-10-PCS; 2017-05-30)
PROC: 5A1221Z Performance of Cardiac Output, Continuous (ICD-10-PCS; 2017-05-30)
PROC: 021009W Bypass Coronary Artery, One Artery from Aorta with Autologous Venous Tissue, Open Approach (ICD-10-PCS; principal; 2017-05-30 12:34)
DX: I21.4 Non-ST elevation (NSTEMI) myocardial infarction (principal); N17.1 Acute kidney failure with acute cortical necrosis; J98.11 Atelectasis; G45.9 Transient cerebral ischemic attack, unspecified; N13.30 Unspecified hydronephrosis; N18.3 Chronic kidney disease, stage 3 (moderate); I12.9 Hypertensive chronic kidney disease with stage 1 through stage 4 chronic kidney disease, or unspecified chronic kidney disease; F14.10 Cocaine abuse, uncomplicated; F17.210 Nicotine dependence, cigarettes, uncomplicated; I25.2 Old myocardial infarction; Z95.5 Presence of coronary angioplasty implant and graft; I25.10 Atherosclerotic heart disease of native coronary artery without angina pectoris; Z91.19 Patient's noncompliance with other medical treatment and regimen; F32.9 Major depressive disorder, single episode, unspecified; G47.00 Insomnia, unspecified; Z53.29 Procedure and treatment not carried out because of patient's decision for other reasons; Z91.14 Patient's other noncompliance with medication regimen; N39.43 Post-void dribbling; R39.12 Poor urinary stream; N40.1 Benign prostatic hyperplasia with lower urinary tract symptoms; E87.5 Hyperkalemia; Z78.1 Physical restraint status; Z86.73 Personal history of transient ischemic attack (TIA), and cerebral infarction without residual deficits; I48.0 Paroxysmal atrial fibrillation; R29.810 Facial weakness
CPT/HCPCS: 36430; 70450; 71010; 76775; 76937; 80048; 80053; 80061; 80307; 81001; 82306; 82435; 82550; 82552; 82565; 82570; 82947; 82948; 83036; 83735; 83883; 84132; 84165; 84295; 84300; 84484; 84520; 85007; 85025; 85027; 85384; 85610; 85730; 86021; 86160; 86803; 86850; 86900; 86901; 86920; 87205; 87340; 87522; 87641; 93005; 93306; 93318; 93458; 93880; 93970; 93998; 94002; 94010; 94150; 94640; 94664; 94668; 99152; 99153; C1760; C1769; C1893; C9248; G0269; J0131; J0282; J0360; J0690; J1200; J1630; J1644; J1815; J1817; J1940; J2060; J2150; J2175; J2250; J2370; J2405; J2440; J2720; J2930; J3010; J3370; J3475; J3480; J7030; J7040; J7050; J7060; J7120; J7644; P9016; P9047; Q9967

== ENCOUNTER 2017-07-23 22:43 | Observation (INO) | payer OTHER ==
[~2017-07-23 22:43] MED LIST changes: +ASA325 PO; +ATOR40TA16 PO; -BLOOD PRESSURE MED; +CITA20TA4 PO; +COUM5TAB PO; +DOCU1CAP39 PO; +FURO1TAB60 PO; +HYDR-3799 PO; +METO-309 PO; +MIRTA15 PO; +PANT40TA3 PO; +TAMS5CAP PO; +THERM PO; +TYLE325T PO
[2017-07-23 23:04] VITALS: BP 220/111; PULSE 86; RESP 19; O2SAT 98
[2017-07-23 23:25] VITALS: BP 199/104; PULSE 84; RESP 19; O2SAT 99
--- NOTE | 2017-07-23 23:43 | PD ---
HPI Chief Complaint: Hypertension Time Seen by Provider: 23:01 Travel History International Travel<30 days: No Contact w/Intl Traveler<30days: No Traveled to known affect area: No History of Present Illness HPI The patient is a 62 year old male who presents to the [facility] emergency department with a history of reportedly running out of all of his medications earlier today. The patient reports that he had a coronary artery bypass graft done approximately one month ago in the hospital. The patient is unsure who his primary care physician is or who his reproductive healthcare assistant is. He reports that he was told to come to the emergency department by his family. He reports that he resides with his family. The patient reports that his family was concerned that he developed lower extremity edema today. He reports that over the last 2 days he has had some cough and congestion. His cough has been productive of white sputum intermittently. The patient reports that he does have intermittent dyspnea on exertion. He denies having any chest pain. He reports that he continues to smoke a half pack of cigarettes per day. He denies taking any aspirin today. On review of systems otherwise, the patient denies having any known recent fevers, neck pain, abdominal pain, vomiting, diarrhea, urinary symptoms, or neurologic symptoms. Unfortunately, the patient is a poor historian regarding the details of his recent medical history. The patient's electronic medical record was reviewed for details. [facility] Past Medical History Narrative Medical The patient's past medical history is significant for coronary artery disease status post coronary artery bypass grafting, history of cocaine abuse, hypertension, tobacco abuse, anxiety and depression. The patient has a history of being diagnosed with hepatitis C. According to the electronic medical record the patient had coronary artery bypass grafting 2 vessels. The patient had a normal ejection fraction with no prior history of congestive heart failure. The patient while in the hospital had a TIA. Anxiety: Yes Depression: Yes Cardiac Catheterization: Yes Cardiovascular Problems: Yes ([place]) Chest Pain: Yes Diminished Hearing: No Hypertension: Yes Implanted Vascular Access Dvce: Yes Immunizations Current: No Past Surgical History Narrative Surgical The patient's past surgical history is significant for cardiac catheterization with stent placement, hernia repair, appendectomy, history of recent coronary artery bypass grafting. Abdominal Surgery: Yes (HERNIA REPAIR) Appendectomy: Yes Body Medical Devices: stents in heart Coronary Stent: Yes Other Surgery: Yes (LUNGS A CHILD, DOES NOT KNOW SPECIFICS) Social History Alcohol Use: Yes (OCC) Tobacco Use: No (1 PPD) Substance Use: No Allergies-Medications (Allergen,Severity, Reaction): Coded Allergies: morphine (Verified Adverse Reaction, Intermediate, Confusion, 07/24/17) Reported Meds & Prescriptions Reported Meds & Active Scripts Active Coumadin (Warfarin) 5 Mg Tab 5 Mg PO DAILY goal 2-3 hold INR > 3.5 Tylenol (Acetaminophen) 325 Mg Tab 650 Mg PO Q6H PRN Dok (Docusate Sodium) 100 Mg Cap 100 Mg PO DAILY Thera M Plus (Multivitamins/Minerals Therapeutic) 1 Tab 1 Tab PO DAILY Pantoprazole (Pantoprazole Sodium) 40 Mg Tab 40 Mg PO DAILY@06 Mirtazapine 15 Mg Tab 15 Mg PO HS Px Aspirin (Aspirin) 325 Mg Tab 81 Mg PO DAILY Lopressor (Metoprolol Tartrate) 50 Mg Tab 50 Mg PO Q12HR Hydralazine HCl 25 Mg Tablet 25 Mg PO Q8HR Atorvastatin (Atorvastatin Calcium) 40 Mg Tab 80 Mg PO HS Flomax (Tamsulosin HCl) 0.4 Mg Cap 0.4 Mg PO Q12HR Reported Citalopram (Citalopram Hydrobromide) 20 Mg Tab 20 Mg PO DAILY Review of Systems Except as stated in HPI: all other systems reviewed are Neg General / Constitutional: No: Fever Eyes: No: Visual changes HENT: No: Headaches Cardiovascular: Positive: Dyspnea on exertion, Edema, No: Chest Pain or Discomfort Respiratory: Positive: Cough, No: Shortness of Breath Gastrointestinal: No: Nausea, Vomiting, Diarrhea, Abdominal Pain Genitourinary: No: Dysuria Musculoskeletal: No: Pain Skin: No Rash Neurologic: No: Weakness, Focal Abnormalities, Change in Mentation, Slurred Speech, Sensory Disturbance Psychiatric: No: Depression Endocrine: No: Polydipsia Hematologic/Lymphatic: No: Easy Bruising Physical Exam Narrative General: The patient is a well-developed well-nourished male in no acute distress. Head and Neck exam: Head is normocephalic atraumatic. Eyes: EOMI, pupils are equal round and reactive to light. Nose: Midline septum with pink mucous membranes Mouth: Dentition unremarkable. Moist mucus membranes. Posterior oropharynx is not erythematous. No tonsillar hypertrophy. Uvula midline. Airway patent. Neck: No palpable lymphadenopathy. No nuchal rigidity. No thyromegaly. Cardiovascular: Regular rate and rhythm without murmurs, gallops, or rubs. Lungs: The patient has diminished breath sounds in bilateral bases. No wheezes or rhonchi. Abdomen: Soft, without tenderness to palpation in all 4 quadrants of the abdomen. No guarding, rebound, or rigidity. Normal bowel sounds are audible. No tenderness on palpation of McBurney's point. Negative Sawant's sign. Extremities: No clubbing or cyanosis. The patient has 1+ pitting edema bilateral lower extremities. 2+ pulses in all 4 extremities. No calf tenderness on palpation. Back: No costovertebral angle tenderness to palpation. Neurologic Exam: Grossly nonfocal. Skin Exam: No rash noted. Intact skin that is warm and dry. Data Data Last Documented VS Vital Signs Date Time Temp Pulse Resp B/P (MAP) Pulse Ox O2 Delivery O2 Flow Rate FiO2 07/24/17 01:02 78 18 177/97 (123) 98 Room Air Orders Orders Electrocardiogram (07/23/17 23:39) Complete Blood Count With Diff (07/23/17 23:39) Comprehensive Metabolic Panel (07/23/17 23:39) Creatine Kinase (Cpk) (07/23/17 23:39) Ckmb (Isoenzyme) Profile (07/23/17 23:39) Troponin I (07/23/17 23:39) B-Type Natriuretic Peptide (07/23/17 23:39) Prothrombin Time / Inr (Pt) (07/23/17 23:39) Act Partial Throm Time (Ptt) (07/23/17 23:39) Lipase (07/23/17 23:39) Urinalysis - C+S If Indicated (07/23/17 23:39) Magnesium (Mg) (07/23/17 23:39) Chest, Single Ap (07/23/17 23:39) Iv Access Insert/Monitor (07/23/17 23:39) Ecg Monitoring (07/23/17 23:39) Oximetry (07/23/17 23:39) Nitroglycerin Sl (Nitrostat Sl) (07/23/17 23:45) Nitroglycerin 2% Oint (Nitroglycerin 2% (07/23/17 23:45) Aspirin Chew (Aspirin Chew) (07/24/17 00:00) Furosemide Inj (Lasix Inj) (07/24/17 00:45) Drug Screen, Random Urine (07/24/17 02:22) Place In Observation (07/24/17 ) Vital Signs (Adult) Q4H (07/24/17 02:22) Activity Oob Ad Kayla (07/24/17 02:22) Molybdenum Steamer Operator / Telemetry .CONTINUOUS (07/24/17 02:22) Intake + Output WILI.QSHIFT (07/24/17 02:22) Diet Heart Healthy (07/24/17 Breakfast) Sodium Chloride 0.9% Flush (Ns Flush) (07/24/17 02:30) Sodium Chloride 0.9% Flush (Ns Flush) (07/24/17 09:00) Ondansetron Inj (Zofran Inj) (07/24/17 02:30) Comprehensive Metabolic Panel (07/25/17 06:00) Complete Blood Count With Diff (07/25/17 06:00) Troponin I (07/24/17 06:00) Troponin I (07/24/17 12:00) Scd Bilateral/Knee High WILI.BID (07/24/17 02:22) Stephen Bilateral/Knee High WILI.QSHIFT (07/24/17 02:26) Acetaminophen (Tylenol) (07/24/17 02:30) Acetamin-Hydrocod 325-5 Mg ([place] 5-325 (07/24/17 02:30) Acetamin-Hydrocod 325-10 Mg ([place] 10-32 (07/24/17 02:30) Docusate Sodium-Senna (Cira-Colace) (07/24/17 09:00) Magnesium Hydroxide Liq (Milk Of Magnesi (07/24/17 02:30) Sennosides (Senokot) (07/24/17 02:30) Bisacodyl Supp (Dulcolax Supp) (07/24/17 02:30) Lactulose Liq (Lactulose Liq) (07/24/17 02:30) Nitroglycerin 2% Oint (Nitroglycerin 2% (07/24/17 02:30) Atorvastatin (Lipitor) (07/24/17 21:00) Citalopram (Celexa) (07/24/17 09:00) Furosemide (Lasix) (07/24/17 09:00) Hydralazine (Apresoline) (07/24/17 06:00) Metoprolol Tartrate (Lopressor) (07/24/17 09:00) Mirtazapine (Remeron) (07/24/17 21:00) Multivitamins-Minerals Therap (Theragran (07/24/17 09:00) Pantoprazole (Protonix) (07/24/17 06:00) Tamsulosin (Flomax) (07/24/17 09:00) Warfarin (Coumadin) (07/24/17 16:00) Admit Order (Ed Use Only) (07/24/17 02:30) Aspirin Chew (Aspirin Chew) (07/24/17 09:00) Labs Laboratory Tests Test 07/23/17 23:57 07/24/17 01:40 White Blood Count 6.1 TH/MM3 Red Blood Count 4.13 MIL/MM3 Hemoglobin 11.3 GM/DL Hematocrit 33.8 % Mean Corpuscular Volume 81.9 FL Mean Corpuscular Hemoglobin 27.3 PG Mean Corpuscular Hemoglobin Concent 33.4 % Red Cell Distribution Width 16.9 % Platelet Count 197 TH/MM3 Mean Platelet Volume 6.7 FL Neutrophils (%) (Auto) 56.0 % Lymphocytes (%) (Auto) 28.4 % Monocytes (%) (Auto) 10.8 % Eosinophils (%) (Auto) 4.2 % Basophils (%) (Auto) 0.6 % Neutrophils # (Auto) 3.4 TH/MM3 Lymphocytes # (Auto) 1.7 TH/MM3 Monocytes # (Auto) 0.7 TH/MM3 Eosinophils # (Auto) 0.3 TH/MM3 Basophils # (Auto) 0.0 TH/MM3 CBC Comment DIFF FINAL Differential Comment Prothrombin Time 31.3 SEC Prothromb Time International Ratio 3.1 RATIO Activated Partial Thromboplast Time 51.8 SEC Blood Urea Nitrogen 22 MG/DL Creatinine 2.39 MG/DL Random Glucose 97 MG/DL Total Protein 7.2 GM/DL Albumin 2.8 GM/DL Calcium Level 8.1 MG/DL Magnesium Level 1.8 MG/DL Alkaline Phosphatase 89 U/L Aspartate Amino Transf (AST/SGOT) 24 U/L Alanine Aminotransferase (ALT/SGPT) 15 U/L Total Bilirubin 0.3 MG/DL Sodium Level 143 MEQ/L Potassium Level 4.0 MEQ/L Chloride Level 111 MEQ/L Carbon Dioxide Level 26.9 MEQ/L Anion Gap 5 MEQ/L Estimat Glomerular Filtration Rate 33 ML/MIN Total Creatine Kinase 75 U/L Troponin I 0.10 NG/ML B-Type Natriuretic Peptide 309 PG/ML Lipase 236 U/L Urine Color YELLOW Urine Turbidity CLEAR Urine pH 5.5 Urine Specific [place] 1.010 Urine Protein 100 mg/dL Urine Glucose (UA) NEG mg/dL Urine Ketones NEG mg/dL Urine Occult Blood NEG Urine Nitrite NEG Urine Bilirubin NEG Urine Urobilinogen LESS THAN 2.0 MG/DL Urine Leukocyte Esterase NEG Urine RBC 2 /hpf Urine WBC LESS THAN 1 /hpf Urine Bacteria RARE /hpf Urine Hyaline Casts 1 /lpf Urine Mucus FEW /lpf Microscopic Urinalysis Comment CULT NOT INDICATED Urine Opiates Screen NEG Urine Barbiturates Screen NEG Urine Amphetamines Screen NEG Urine Benzodiazepines Screen NEG Urine Cocaine Screen NEG Urine Cannabinoids Screen NEG [facility] Medical Decision Making Medical Screen Exam Complete: Yes Emergency Medical Condition: Yes Medical Record Reviewed: Yes Interpretation(s) Last Impressions Chest X-Ray 07/23/17 6161 Signed Impressions: Service Date/Time: Monday, July 24, 2017 00:03 - CONCLUSION: 1. Minimal basilar airspace disease. Small right pleural effusion. Postoperative median sternotomy. Delgado Malhotra MD Differential Diagnosis Congestive heart failure, versus hypoalbuminemia, versus cor pulmonale, versus acute coronary syndrome Narrative Course During the course of the patients emergency department visit, the patients history, examination, and differential diagnosis were reviewed with the patient. The patient was placed on a cardiac technician with oximetry and frequent blood pressure monitoring. The patient had IV access obtained and blood work sent for analysis. The patient had an EKG done on arrival that shows a sinus rhythm heart rate of 81, QRS duration is 85 ms, QTC [address] segment elevation is noted, T waves are inverted in V2, V4, V5, V6, lead 1, aVL. The patient was initially provided aspirin 324 mg by mouth 1, nitroglycerin sublingual every 5 minutes 3 when necessary chest pain, nitroglycerin 1 inch the chest wall. The patients laboratory studies were reviewed and remarkable for a white count 6.1, hemoglobin 11.3, platelets 197 with 10.8 monocytes, CMP is remarkable for chloride of 111, BUN 22, creatinine 2.39 which is similar compared to previously with this history of chronic renal insufficiency, calcium 8.1, albumin 2.8 consistent with hypoalbuminemia, CPK 75, troponin I 0.01. BNP is elevated at 309, PT 31.3, INR 3.1, PTT 81.8, urinalysis is unremarkable. Radiology studies were reviewed and remarkable for a chest x-ray that shows minimal bibasilar airspace disease, small right pleural effusion, postoperative median sternotomy. The patient will be admitted to the hospital for new onset congestive heart failure with an elevated troponin I. The patient was given Lasix 60 mg IV. The patients results were discussed with the patient, including the plan of care. I explained that further testing and/ or monitoring is indicated based on the patients history, examination, and/ or laboratory findings. Therefore, I recommended admission for additional evaluation. The patient expressed understanding and was agreeable with this plan. The patient was admitted to the hospital in stable condition and [facility] Physician Communication Physician Communication The patient's case including history, pertinent physical examination findings, and laboratory studies were discussed with Dr. Cleary. It was agreed that the patient would be admitted to the [facility] service. Diagnosis Primary Impression: New onset of congestive heart failure Additional Impression: Elevated troponin I level Admitting Information Admitting Physician Requests: Admit Scripts Furosemide (Lasix) 40 Mg Tab 40 MG PO DAILY for edema , #30 TAB 0 Refills Prov: Chloé Buckner MD 07/25/17 Kamala Oh MD Jul 23, 2017 23:43
[2017-07-23] MEDS ORDERED: NITROGLYCERIN 2% OINT 1 GM PACKET TOPICAL ONE (23:45)
[2017-07-23] MEDS ORDERED: NITROGLYCERIN 0.4 MG SL 25 TABS/BTL SL PRN (23:45)
[2017-07-24] VITALS (24 sets, daily range): BP systolic 139–177; BP diastolic 74–105; PULSE 70–92; RESP 18–20; TEMP 98–98.6; O2SAT 90–99
[2017-07-24] MEDS ORDERED: ASPIRIN 81 MG CHEW TAB CHEW ONE
[2017-07-24 00:07] LABS: AUTOMATED NEUTROPHIL # 3.4 TH/MM3 (1.8-7.7); BASOPHIL % 0.6 % (0.0-2.0); EOSINOPHIL # 0.3 TH/MM3 (0-0.4); EOSINOPHIL % 4.2 % (0.0-4.0); HEMATOCRIT 33.8 % (39.0-51.0); HEMOGLOBIN 11.3 GM/DL (13.0-17.0); LYMPH % 28.4 % (9.0-44.0); LYMPHOCYTE # 1.7 TH/MM3 (1.0-4.8); MEAN CELL VOLUME 81.9 FL (80.0-100.0); MEAN CORPUSCULAR HEMOGLOBIN 27.3 PG (27.0-34.0); MEAN CORPUSCULAR HGB CONC 33.4 % (32.0-36.0); MEAN PLATELET VOLUME 6.7 FL (7.0-11.0); MONO % 10.8 % (0.0-8.0); MONOCYTE # 0.7 TH/MM3 (0-0.9); PLATELET COUNT 197 TH/MM3 (150-450); RED BLOOD COUNT 4.13 MIL/MM3 (4.50-5.90); RED CELL DISTRIBUTION WIDTH 16.9 % (11.6-17.2); WHITE BLOOD COUNT 6.1 TH/MM3 (4.0-11.0)
--- NOTE | 2017-07-24 00:10 | RADRPT ---
EXAM DATE/TIME: 07/24/2017 00:03 [place] COMPARISON: CHEST SINGLE AP, June 03, 2017, 4:37. INDICATIONS : Short of breath. MEDICAL HISTORY : Myocardial infarction. Hypertension SURGICAL HISTORY : CABG. Coronary artery stent. ENCOUNTER: Subsequent ACUITY: 1 week PAIN SCORE: 0/10 LOCATION: Bilateral chest FINDINGS: A single view of the chest demonstrates subsegmental basilar air space disease. Small right effusion. Heart size within normal limits. Previous median sternotomy. CONCLUSION: 1. Minimal basilar airspace disease. Small right pleural effusion. Postoperative median sternotomy. Delgado Malhotra MD on July 24, 2017 at 0:06 Board Certified Radiologist. This report was verified electronically.
[2017-07-24 00:25] LABS: INTERNATIONAL NORMALIZED RATIO 3.1 RATIO; PROTHROMBIN TIME - PATIENT 31.3 SEC (9.8-11.6)
[2017-07-24 00:27] LABS: ALKALINE PHOSPHATASE 89 U/L (45-117); TOTAL BILIRUBIN ADULT 0.3 MG/DL (0.2-1.0); TOTAL PROTEIN 7.2 GM/DL (6.4-8.2)
[2017-07-24 00:35] LABS: ALBUMIN 2.8 GM/DL (3.4-5.0); ALT (GPT) 15 U/L (12-78); AST (GOT) 24 U/L (15-37); BICARBONATE 26.9 MEQ/L (21.0-32.0); BLOOD UREA NITROGEN 22 MG/DL (7-18); CALCIUM 8.1 MG/DL (8.5-10.1); CHLORIDE 111 MEQ/L (98-107); CREATININE 2.39 MG/DL (0.60-1.30); GLOMERULAR FILTRATION RATE 33 ML/MIN (>89); GLUCOSE,RANDOM 97 MG/DL (74-106); MAGNESIUM 1.8 MG/DL (1.5-2.5); SODIUM (NA) 143 MEQ/L (136-145)
[2017-07-24] MEDS ORDERED: FUROSEMIDE 40 MG/4 ML VIAL IV PUSH ONE (00:45)
[2017-07-24 02:00] LABS: BACTERIA, URINE RARE /hpf; BILIRUBIN, URINE NEG (NEG); BLOOD, URINE NEG (NEG); GLUCOSE,URINE NEG (NEG); HYALINE CAST, URINE 1 /lpf (RARE); KETONE, URINE NEG (NEG); MUCUS URINE FEW /lpf (OCC); NITRITE,URINE NEG (NEG); PH, URINE 5.5 (5.0-8.5); URINE COLOR YELLOW (YELLW/STRAW); URINE LEUKOCYTE ESTERASE NEG (NEG)
[2017-07-24] MEDS ORDERED: BISACODYL 10 MG SUPP RECTAL PRN (02:30)
[2017-07-24] MEDS ORDERED: NITROGLYCERIN 2% OINT 1 GM PACKET TOPICAL PRN (02:30)
[2017-07-24] MEDS ORDERED: ONDANSETRON HCL 4 MG/2 ML VIAL IVP PRN (02:30)
[2017-07-24] MEDS ORDERED: ACETAMINOPHEN/HYDROcodone 325 MG/5 MG TAB PO PRN (02:30)
[2017-07-24] MEDS ORDERED: SENNOSIDES 8.6 MG TAB PO PRN (02:30)
[2017-07-24] MEDS ORDERED: LACTULOSE SYRUP 20 GM/30 ML CUP PO PRN (02:30)
[2017-07-24] MEDS ORDERED: ACETAMINOPHEN 325 MG TAB PO PRN (02:30)
[2017-07-24] MEDS ORDERED: ACETAMINOPHEN/HYDROcodone 325 MG/10 MG TAB PO PRN (02:30)
[2017-07-24] MEDS ORDERED: MAGNESIUM HYDROXIDE SUSP 30 ML CUP PO PRN (02:30)
[2017-07-24] MEDS ORDERED: SODIUM CHLORIDE 0.9% FLUSH 10 ML FLUSH IV FLUSH PRN (02:30)
[2017-07-24] MEDS ORDERED: LORazepam 0.5 MG TAB PO PRN (04:15)
[2017-07-24] MEDS ORDERED: hydrALAZINE HCL 20 MG/ML VIAL IV PUSH PRN (04:15)
--- NOTE | 2017-07-24 04:31 | HHI.HP ---
[facility] Service [facility] Primary Care Physician Unknown Admission Diagnosis New onset CHF, intermediate troponin Diagnoses: (1) CHF (congestive heart failure) (2) Elevated troponin I level (3) Hypertensive urgency Chief Complaint: Lower extremity edema, cough, congestion Travel History International Travel<30 Days: No Contact w/Intl Traveler <30 Da: No Traveled to Known Affected Are: No History of Present Illness Mr. Perez is a 62 y/o male with CAD s/p CABG x 2 05/30/17 who presented to the ED on 07/23/17 because his family was worried about lower extremity edema that had developed earlier in the day. The patient is seen on the medical floor. He is awakened for history and exam. He answers all of my questions but keeps his eyes closed. He denies chest pain. He's had some intermittent dyspnea on exertion and leg swelling. He reports that he is breathing better since evaluation and treatment in the ED. He denies cough or congestion but reported cough with white sputum production to the ER physician. He is not very cooperative during my visit. Review of Systems ROS Limitations: Uncooperative (ROS limited as patient does not participate/ answer all of my questions during visit) Past Family Social History Past Medical History Obtained from medical record due to patient being uncooperative Hypertension Hyperlipidemia CKD CAD s/p CABG x 2 05/30/17 and stent tobacco abuse history of cocaine abuse . Past Surgical History Obtained from medical record due to patient being uncooperative CABG x 2 05/30/17 - Dr. Casas Hernia repair Appendectomy Cardiac catheter with stent placement . Allergies: Coded Allergies: morphine (Verified Adverse Reaction, Intermediate, Confusion, 07/24/17) Family History Obtained from medical record due to patient being uncooperative Family history of CKD . Social History Obtained from medical record due to patient being uncooperative Alcohol Use: Yes (OCC) Tobacco Use: No (/2 PPD) Substance Use: history of crack cocaine abuse Physical Exam Vital Signs Vital Signs Date Time Temp Pulse Resp B/P (MAP) Pulse Ox O2 Delivery O2 Flow Rate FiO2 07/24/17 03:55 75 07/24/17 03:41 98.6 75 20 173/105 (127) 98 07/24/17 03:16 07/24/17 02:45 80 18 156/78 (104) 99 Room Air 07/24/17 01:02 78 18 177/97 (123) 98 Room Air 07/24/17 00:05 18 98 Room Air 07/23/17 23:25 84 19 199/104 (135) 99 Room Air 07/23/17 23:04 86 19 220/111 (147) 98 Physical Exam GENERAL: This is a sleeping patient, in no apparent distress, does not interact very much with examiner; lying in bed with eyes closed throughout. SKIN: No rashes. Cool and dry. Left posterior thoracotomy scar noted - patient tells me someone operated on his lung - wont say more than that. HEAD: Atraumatic. Normocephalic. EYES: No scleral icterus. No injection or drainage. ENT: Nose without bleeding, purulent drainage. NECK: Trachea midline. No JVD or lymphadenopathy. CARDIOVASCULAR: Regular rate and rhythm without murmurs, gallops, or rubs. RESPIRATORY: Breath sounds diminished at bases, equal bilaterally. No wheezes, rales, or rhonchi. GASTROINTESTINAL: Abdomen soft, non-tender, nondistended. No guarding. MUSCULOSKELETAL: Extremities without clubbing, cyanosis, or edema. No calf tenderness. NEUROLOGICAL: Sleepy. Normal speech. . Laboratory Laboratory Tests Test 07/23/17 23:57 07/24/17 01:40 White Blood Count 6.1 Red Blood Count 4.13 Hemoglobin 11.3 Hematocrit 33.8 Mean Corpuscular Volume 81.9 Mean Corpuscular Hemoglobin 27.3 Mean Corpuscular Hemoglobin Concent 33.4 Red Cell Distribution Width 16.9 Platelet Count 197 Mean Platelet Volume 6.7 Neutrophils (%) (Auto) 56.0 Lymphocytes (%) (Auto) 28.4 Monocytes (%) (Auto) 10.8 Eosinophils (%) (Auto) 4.2 Basophils (%) (Auto) 0.6 Neutrophils # (Auto) 3.4 Lymphocytes # (Auto) 1.7 Monocytes # (Auto) 0.7 Eosinophils # (Auto) 0.3 Basophils # (Auto) 0.0 CBC Comment DIFF FINAL Differential Comment Prothrombin Time 31.3 Prothromb Time International Ratio 3.1 Activated Partial Thromboplast Time 51.8 Blood Urea Nitrogen 22 Creatinine 2.39 Random Glucose 97 Total Protein 7.2 Albumin 2.8 Calcium Level 8.1 Magnesium Level 1.8 Alkaline Phosphatase 89 Aspartate Amino Transf (AST/SGOT) 24 Alanine Aminotransferase (ALT/SGPT) 15 Total Bilirubin 0.3 Sodium Level 143 Potassium Level 4.0 Chloride Level 111 Carbon Dioxide Level 26.9 Anion Gap 5 Estimat Glomerular Filtration Rate 33 Total Creatine Kinase 75 Troponin I 0.10 B-Type Natriuretic Peptide 309 Lipase 236 Urine Color YELLOW Urine Turbidity CLEAR Urine pH 5.5 Urine Specific White 1.010 Urine Protein 100 Urine Glucose (UA) NEG Urine Ketones NEG Urine Occult Blood NEG Urine Nitrite NEG Urine Bilirubin NEG Urine Urobilinogen LESS THAN 2.0 Urine Leukocyte Esterase NEG Urine RBC 2 Urine WBC LESS THAN 1 Urine Bacteria RARE Urine Hyaline Casts 1 Urine Mucus FEW Microscopic Urinalysis Comment CULT NOT INDICATED Urine Opiates Screen NEG Urine Barbiturates Screen NEG Urine Amphetamines Screen NEG Urine Benzodiazepines Screen NEG Urine Cocaine Screen NEG Urine Cannabinoids Screen NEG Result Diagram: 07/23/17 2357 07/23/172356 Imaging Last Impressions Chest X-Ray 07/23/17 2339 Signed Impressions: Service Date/Time: Monday, July 24, 2017 00:03 - CONCLUSION: 1. Minimal basilar airspace disease. Small right pleural effusion. Postoperative median sternotomy. Delgado Malhotra MD . Caprini VTE Risk Assessment Caprini VTE Risk Assessment: Mod/High Risk (score >= 2) Caprini Risk Assessment Model Point Value = 1 Point Value = 2 Point Value = 3 Point Value = 5 Age 41-60 Minor surgery BMI > 25 kg/m2 Swollen legs Varicose veins or History of unexplained or recurrent spontaneous Oral contraceptives or hormone replacement Sepsis (< 1 month) Serious lung disease, including pneumonia (< 1 month) Abnormal pulmonary function Acute myocardial infarction Congestive heart failure (< 1 month) History of inflammatory bowel disease Medical patient at bed rest Age 61-74 Arthroscopic surgery Major open surgery (> 45 min) Laparoscopic surgery (> 45 min) Malignancy Confined to bed (> 72 hours) Immobilizing plaster cast Central venous access Age >= 75 History of VTE Family history of VTE Factor V Leiden Prothrombin [id number] Lupus anticoagulant Anticardiolipin antibodies Elevated serum homocysteine Heparin-induced thrombocytopenia Other congenital or acquired thrombophilia Stroke (< 1 month) Elective arthroplasty Hip, pelvis, or leg fracture Acute spinal cord injury (< 1 month) Prophylaxis Regimen Total Risk Factor Score Risk Level Prophylaxis Regimen 0-1 Low Early ambulation 2 Moderate Order ONE of the following: *Sequential Compression Device (SCD) *Heparin 5000 units SQ BID 3-4 Higher Order ONE of the following medications: *Heparin 5000 units SQ TID *Enoxaparin/Lovenox 40 mg SQ daily (WT < 150 kg, CrCl > 30 mL/min) *Enoxaparin/Lovenox 30 mg SQ daily (WT < 150 kg, CrCl > 10-29 mL/min) *Enoxaparin/Lovenox 30 mg SQ BID (WT < 150 kg, CrCl > 30 mL/min) AND/OR *Sequential Compression Device (SCD) 5 or more Highest Order ONE of the following medications: *Heparin 5000 units SQ TID (Preferred with Epidurals) *Enoxaparin/Lovenox 40 mg SQ daily (WT < 150 kg, CrCl > 30 mL/min) *Enoxaparin/Lovenox 30 mg SQ daily (WT < 150 kg, CrCl > 10-29 mL/min) *Enoxaparin/Lovenox 30 mg SQ BID (WT < 150 kg, CrCl > 30 mL/min) AND *Sequential Compression Device (SCD) Assessment and Plan Problem List: (1) CHF (congestive heart failure) ICD Code: I50.9 - Heart failure, unspecified (2) Hypertensive urgency ICD Code: I16.0 - Hypertensive urgency (3) Elevated troponin I level ICD Code: R74.8 - Abnormal levels of other serum enzymes Assessment and Plan Mr. Perez is a 62 y/o male with CAD s/p CABG x 2 05/30/17 who presented to the ED on 07/23/17 because his family was worried about lower extremity edema that had developed earlier in the day. CHF - BNP is 309; CXR shows minimal basilar airspace disease, small right pleural effusion. - received Lasix 60 mg IV in ED - continue home Lasix - Echo 06/01/17 - EF 55-60% with moderate to severe concentric left ventricular hypertrophy - will recheck 2 D echo - consult cardiology - Nitroglycerin 0.5" q6h topical - continue home beta gena therapy - continuous cardiac telemetry to monitor for arrhythmias - Monitor strict I and Os Hypertensive urgency - questionable compliance with home medication regimen - Hydralazine 10 mg IV q6h PRN BP > 170/100 - continue home antihypertensives - follow bp trends and adjust treatments as indicated - urine toxicology negative (patient with hx of cocaine abuse) Elevated troponin I - initial troponin I is 0.10 - will follow serial cardiac enzymes and EKGs - initial 12 lead EKG personally reviewed and shows no acute ST segment elevation but T waves are noted inverted in leads: 1, avL, V2, V4, V5, V6 - will continue to follow Tobacco Abuse - patient to quit smoking - will need reinforcement when he is more cooperative DVT prophylaxis - continue Coumadin - INR 3.1 - pharmacy Coumadin consult for assistance with therapeutic monitoring and dosing with target INR 2 - 3 for atrial fibrillation . Discussed Condition With Dr. Cleary . Physician Certification 2 Midnight Certification Type: Admission for Inpatient Services Order for Inpatient Services The services are ordered in accordance with Medicare regulations or non- Medicare payer requirements, as applicable. In the case of services not specified as inpatient-only, they are appropriately provided as inpatient services in accordance with the 2-midnight benchmark. Estimated LOS (days): 3 days is the estimated time the patient will need to remain in the hospital, assuming treatment plan goals are met and no additional complications. Post-Hospital Plan: Not yet determined Jordyn Marc Jul 24, 2017 04:31
[2017-07-24] MEDS: PANTOPRAZOLE SOD 40 MG DELAYED RELEASE TAB PO SCH (05:18)
[2017-07-24] MEDS: hydrALAZINE HCL 25 MG TAB PO SCH ×3 (05:18→20:57)
[2017-07-24] MEDS: DOCUSATE SODIUM 50 MG/SENNA 8.6 MG TAB PO SCH ×2 (08:21→20:57)
[2017-07-24] MEDS: MULTIVITAMINS/MINERALS THERAPEUTIC TAB PO SCH (08:21)
[2017-07-24] MEDS: TAMSULOSIN HCL 0.4 MG CAP PO SCH ×2 (08:21→20:57)
[2017-07-24] MEDS: ASPIRIN 81 MG CHEW TAB PO SCH (08:21)
[2017-07-24] MEDS: METOPROLOL TARTRATE 50 MG TAB PO SCH ×2 (08:21→20:57)
[2017-07-24] MEDS: CITALOPRAM HYDROBROMIDE 20 MG TAB PO SCH (08:21)
[2017-07-24] MEDS: FUROSEMIDE 40 MG TAB PO SCH (08:21)
[2017-07-24] MEDS: SODIUM CHLORIDE 0.9% FLUSH 10 ML FLUSH IV FLUSH SCH ×2 (08:21→20:58)
[2017-07-24] MEDS ORDERED: amLODIPine BESYLATE 5 MG TAB PO SCH (10:45)
--- NOTE | 2017-07-24 11:00 | MB ---
cc: PO CASTILLO M.D. DATE OF CONSULTATION 07/24/2017 HISTORY OF PRESENT ILLNESS Edmond Perez is a 62-year-old man with known coronary artery disease. He had a cardiac catheterization on May 28 showing 99% ostial LAD and 90% proximal circumflex disease. On May 30 he underwent bypass surgery with a left internal mammary graft to the LAD and a vein graft to circumflex marginal branch. He was noted to have marked left ventricular hypertrophy. He is known to have renal insufficiency. His creatinine has been in the low 2's. He came in because he ran out of medications, cough, some congestion and some lower extremity edema. He has not had typical angina. He has been on warfarin since he had A-fib immediately postop. He has been in sinus apparently since then. PAST MEDICAL HISTORY 1. A mention of hepatitis C. 2. Longstanding hypertension. 3. Previous coke/crack cocaine use. 4. Hypertension. 5. Hyperlipidemia. PAST SURGICAL HISTORY 1. Open heart bypass. 2. Hernia repair. 3. Appendectomy. ALLERGIES MORPHINE. FAMILY HISTORY Positive for kidney disease. SOCIAL HISTORY Notable for him to continue to smoke since his bypass. No illicit cocaine use his tox screen here is negative. PHYSICAL EXAMINATION GENERAL: Physical exam reveals a well-developed, well-nourished, -[place] male in no acute distress. VITAL SIGNS: His vital signs here have been intermittently quite elevated, as high as 220/111 when he came in last night. HEENT: Exam is unremarkable. NECK: No JVD, no bruits. CHEST: Mostly clear to auscultation. CARDIAC: Exam shows normal S1-S2, regular rate and rhythm. I do not hear an S3. A grade 1/6 systolic ejection murmur. ABDOMEN: Soft, nontender. EXTREMITIES: No clubbing or cyanosis. He has trace lower extremity edema. LABORATORY WORK Charted. Hematocrit is 33.8. Troponin 0.10. BNP was 309. Tox screen is negative. CHEST X-RAY Possible some mild CHF. IMPRESSION 1. Suspect a mild acute diastolic CHF. 2. Uncontrolled hypertension. 3. He had some postop A-fib. It has been over a month and he is in sinus currently. 4. Blood pressure is markedly elevated. RECOMMENDATIONS 1. Add amlodipine to help with blood pressure control. 2. Check a 2-D echo Doppler study. 3. Go ahead and discontinue warfarin at this point. 4. Continue beta blockade and hydralazine. 5. Hopefully he will be stable for discharge tomorrow. MD ALEXANDRA Castro/SSB /10:41 AM /10:48 AM
--- NOTE | 2017-07-24 15:48 | HHI.PR ---
Subjective Remarks The patient is in bed he appears sleepy. However he said he feels improved since yesterday and has less shortness of breath. Lower extremity edema improving. No nausea or vomiting no diarrhea or constipation. He denies any chest pain. Objective Vitals Vital Signs Date Time Temp Pulse Resp B/P (MAP) Pulse Ox O2 Delivery O2 Flow Rate FiO2 07/24/17 15:15 98.6 75 18 164/87 (112) 97 07/24/17 14:01 82 07/24/17 13:00 82 07/24/17 12:00 82 07/24/17 11:30 98.4 82 18 139/74 (95) 91 07/24/17 11:00 82 07/24/17 10:00 70 07/24/17 09:00 72 07/24/17 08:15 98.6 88 18 176/104 (128) 90 07/24/17 08:00 88 07/24/17 07:01 86 07/24/17 06:00 81 07/24/17 05:00 80 07/24/17 04:51 156/89 (111) 07/24/17 03:55 75 07/24/17 03:41 98.6 75 20 173/105 (127) 98 07/24/17 03:16 07/24/17 02:45 80 18 156/78 (104) 99 Room Air 07/24/17 01:02 78 18 177/97 (123) 98 Room Air 07/24/17 00:05 18 98 Room Air 07/23/17 23:25 84 19 199/104 (135) 99 Room Air 07/23/17 23:04 86 19 220/111 (147) 98 I/O 07/23/17 07/23/17 07/23/17 07/24/17 07/24/17 07/24/17 06:59 14:59 22:59 06:59 14:59 22:59 Output Total 300 ml Balance -300 ml Output Urine Total 300 ml # Bowel Movements 0 Result Diagram: 07/23/17235607/23/172356 Imaging Last Impressions Chest X-Ray 07/23/17 5833 Signed Impressions: Service Date/Time: Monday, July 24, 2017 00:03 - CONCLUSION: 1. Minimal basilar airspace disease. Small right pleural effusion. Postoperative median sternotomy. Delgado Malhotra MD Objective Remarks GENERAL: This is a sleeping patient, in no apparent distress, does not interact very much with examiner; lying in bed with eyes closed throughout. SKIN: No rashes. Cool and dry. Left posterior thoracotomy scar noted - patient tells me someone operated on his lung - wont say more than that. CARDIOVASCULAR: Regular rate and rhythm without murmurs, gallops, or rubs. RESPIRATORY: Breath sounds diminished at bases, equal bilaterally. No wheezes, rales, or rhonchi. GASTROINTESTINAL: Abdomen soft, non-tender, nondistended. No guarding. MUSCULOSKELETAL: Extremities without clubbing, cyanosis. 1+ lE edema. No calf tenderness. NEUROLOGICAL: Sleepy. Normal speech. A/P Problem List: (1) CHF (congestive heart failure) ICD Code: I50.9 - Heart failure, unspecified (2) Hypertensive urgency ICD Code: I16.0 - Hypertensive urgency (3) Elevated troponin I level ICD Code: R74.8 - Abnormal levels of other serum enzymes Assessment and Plan Mr. Perez is a 62 y/o male with CAD s/p CABG x 2 05/30/17 who presented to the ED on 07/23/17 because his family was worried about lower extremity edema that had developed earlier in the day. CHF - BNP is 309; CXR shows minimal basilar airspace disease, small right pleural effusion. - received Lasix 60 mg IV in ED - continue home Lasix - Echo 06/01/17 - EF 55-60% with moderate to severe concentric left ventricular hypertrophy - will recheck 2 D echo - consult cardiology - Nitroglycerin 0.5" q6h topical - continue home beta gena therapy - continuous cardiac telemetry to monitor for arrhythmias - Monitor strict I and Os Hypertensive urgency - questionable compliance with home medication regimen - Hydralazine 10 mg IV q6h PRN BP > 170/100 - continue home antihypertensives - follow bp trends and adjust treatments as indicated - urine toxicology negative (patient with hx of cocaine abuse) Elevated troponin I - initial troponin I is 0.10 - will follow serial cardiac enzymes and EKGs - initial 12 lead EKG personally reviewed and shows no acute ST segment elevation but T waves are noted inverted in leads: 1, avL, V2, V4, V5, V6 - will continue to follow Tobacco Abuse - patient to quit smoking - will need reinforcement when he is more cooperative DVT prophylaxis - continue Coumadin - INR 3.1 - pharmacy Coumadin consult for assistance with therapeutic monitoring and dosing with target INR 2 - 3 for atrial fibrillation . Discussed Condition With patient. nurse Chloé Buckner MD Jul 24, 2017 15:48
[2017-07-24] MEDS ORDERED: WARFARIN SOD 5 MG TAB PO SCH (16:00)
--- NOTE | 2017-07-24 17:47 | EKG ---
Date Performed: 07/23/2017 Time Performed: 23:06:53 PTAGE: 62 years EKG: Sinus rhythm POSSIBLE LEFT ATRIAL ENLARGEMENT POSSIBLE RIGHT VENTRICULAR CONDUCTION DELAY MODERATE T-WAVE ABNORMA LITY, CONSIDER LATERAL ISCHEMIA ABNORMAL ECG PREVIOUS TRACING : 06/02/2017 09.57 DOCTOR: Kashmir Waldron Interpretating Date/Time 07/24/2017 17:45:30
[2017-07-24] MEDS ORDERED: ATORVASTATIN 40 MG TAB PO SCH (21:00)
[2017-07-24] MEDS ORDERED: MIRTAZAPINE 15 MG TAB PO SCH (21:00)
[2017-07-25] VITALS (7 sets, daily range): BP systolic 134–164; BP diastolic 87–97; PULSE 71–84; RESP 18; TEMP 97.9–98.2; O2SAT 94–97
[2017-07-25] MEDS: hydrALAZINE HCL 25 MG TAB PO SCH (05:48)
[2017-07-25] MEDS: PANTOPRAZOLE SOD 40 MG DELAYED RELEASE TAB PO SCH (05:48)
[2017-07-25 06:31] LABS: AUTOMATED NEUTROPHIL # 2.2 TH/MM3 (1.8-7.7); BASOPHIL % 0.6 % (0.0-2.0); EOSINOPHIL # 0.2 TH/MM3 (0-0.4); EOSINOPHIL % 4.8 % (0.0-4.0); HEMATOCRIT 32.8 % (39.0-51.0); HEMOGLOBIN 10.8 GM/DL (13.0-17.0); LYMPH % 42.2 % (9.0-44.0); LYMPHOCYTE # 2.2 TH/MM3 (1.0-4.8); MEAN CELL VOLUME 81.9 FL (80.0-100.0); MEAN PLATELET VOLUME 6.8 FL (7.0-11.0); MONO % 9.2 % (0.0-8.0); MONOCYTE # 0.5 TH/MM3 (0-0.9); NEUT % 43.2 % (16.0-70.0); PLATELET COUNT 238 TH/MM3 (150-450); RED BLOOD COUNT 4.01 MIL/MM3 (4.50-5.90); RED CELL DISTRIBUTION WIDTH 16.9 % (11.6-17.2); WHITE BLOOD COUNT 5.1 TH/MM3 (4.0-11.0)
[2017-07-25 07:00] LABS: INTERNATIONAL NORMALIZED RATIO 2.1 RATIO; PROTHROMBIN TIME - PATIENT 21.4 SEC (9.8-11.6)
[2017-07-25 07:06] LABS: ALBUMIN 2.5 GM/DL (3.4-5.0); AST (GOT) 18 U/L (15-37); BICARBONATE 28.2 MEQ/L (21.0-32.0); BLOOD UREA NITROGEN 24 MG/DL (7-18); CALCIUM 8.1 MG/DL (8.5-10.1); CHLORIDE 107 MEQ/L (98-107); CREATININE 2.22 MG/DL (0.60-1.30); GLOMERULAR FILTRATION RATE 36 ML/MIN (>89); GLUCOSE,RANDOM 89 MG/DL (74-106); SODIUM (NA) 142 MEQ/L (136-145)
[2017-07-25 07:10] LABS: ALKALINE PHOSPHATASE 83 U/L (45-117); ALT (GPT) 15 U/L (12-78); TOTAL BILIRUBIN ADULT 0.3 MG/DL (0.2-1.0); TOTAL PROTEIN 6.5 GM/DL (6.4-8.2)
[2017-07-25] MEDS: DOCUSATE SODIUM 50 MG/SENNA 8.6 MG TAB PO SCH (09:00)
--- NOTE | 2017-07-25 09:15 | HHI.PR ---
Subjective Remarks In the bed eating breakfast , less sob. No diaphoresis. LE edema improved. No fever or chills.No n/v/d/c. Denies chest pain. Feels tired. Plan for ECHO Objective Vitals Vital Signs Date Time Temp Pulse Resp B/P (MAP) Pulse Ox O2 Delivery O2 Flow Rate FiO2 07/25/17 07:11 97.9 78 18 159/94 (115) 95 07/25/17 04:00 72 07/25/17 04:00 98.1 80 18 164/97 (119) 97 07/25/17 00:00 71 07/25/17 00:00 98.2 76 18 146/90 (108) 94 07/24/17 20:00 98.0 92 20 160/100 (120) 98 07/24/17 20:00 87 07/24/17 18:01 90 07/24/17 17:01 76 07/24/17 16:00 80 07/24/17 15:15 98.6 75 18 164/87 (112) 97 07/24/17 15:01 81 07/24/17 14:01 82 07/24/17 13:00 82 07/24/17 12:00 82 07/24/17 11:30 98.4 82 18 139/74 (95) 91 07/24/17 11:00 82 07/24/17 10:00 70 I/O 07/24/17 07/24/17 07/24/17 07/25/17 07/25/17 07/25/17 07:00 15:00 23:00 07:00 15:00 23:00 Intake Total 942 ml 600 ml Output Total 300 ml Balance -300 ml 942 ml 600 ml Intake Oral 942 ml 600 ml Output Urine Total 300 ml # Voids 6 4 # Bowel Movements 0 0 1 Result Diagram: 07/25/17 0539 07/25/17 0539 Imaging Last Impressions Chest X-Ray 07/23/17 2339 Signed Impressions: Service Date/Time: Monday, July 24, 2017 00:03 - CONCLUSION: 1. Minimal basilar airspace disease. Small right pleural effusion. Postoperative median sternotomy. Delgado Malhotra MD Objective Remarks GENERAL: This is a sleeping patient, in no apparent distress, does not interact very much with examiner; lying in bed with eyes closed throughout. SKIN: No rashes. Cool and dry. Left posterior thoracotomy scar noted - patient tells me someone operated on his lung - wont say more than that. CARDIOVASCULAR: Regular rate and rhythm without murmurs, gallops, or rubs. RESPIRATORY: Breath sounds diminished at bases, equal bilaterally. No wheezes, rales, or rhonchi. GASTROINTESTINAL: Abdomen soft, non-tender, nondistended. No guarding. MUSCULOSKELETAL: Extremities without clubbing, cyanosis. 1+ lE edema. No calf tenderness. NEUROLOGICAL: Sleepy. Normal speech. A/P Problem List: (1) CHF (congestive heart failure) ICD Code: I50.9 - Heart failure, unspecified (2) Hypertensive urgency ICD Code: I16.0 - Hypertensive urgency (3) Elevated troponin I level ICD Code: R74.8 - Abnormal levels of other serum enzymes Assessment and Plan Mr. Perez is a 62 y/o male with CAD s/p CABG x 2 05/30/17 who presented to the ED on 07/23/17 because his family was worried about lower extremity edema that had developed earlier in the day. CHF - BNP is 309; CXR shows minimal basilar airspace disease, small right pleural effusion. - received Lasix 60 mg IV in ED - continue home Lasix - Echo 06/01/17 - EF 55-60% with moderate to severe concentric left ventricular hypertrophy - will recheck 2 D echo - consult cardiology - Nitroglycerin 0.5" q6h topical - continue home beta gena therapy - continuous cardiac telemetry to monitor for arrhythmias - Monitor strict I and Os Hypertensive urgency - questionable compliance with home medication regimen - Hydralazine 10 mg IV q6h PRN BP > 170/100 - continue home antihypertensives - follow bp trends and adjust treatments as indicated - urine toxicology negative (patient with hx of cocaine abuse) Elevated troponin I - initial troponin I is 0.10 - will follow serial cardiac enzymes and EKGs - initial 12 lead EKG personally reviewed and shows no acute ST segment elevation but T waves are noted inverted in leads: 1, avL, V2, V4, V5, V6 - will continue to follow Tobacco Abuse - patient to quit smoking - will need reinforcement when he is more cooperative DVT prophylaxis - continue Coumadin - INR 3.1 - pharmacy Coumadin consult for assistance with therapeutic monitoring and dosing with target INR 2 - 3 for atrial fibrillation . Discussed Condition With patient. nurse Chloé Buckner MD Jul 25, 2017 09:15
[2017-07-25] MEDS: SODIUM CHLORIDE 0.9% FLUSH 10 ML FLUSH IV FLUSH SCH (09:17)
[2017-07-25] MEDS: ASPIRIN 81 MG CHEW TAB PO SCH (09:17)
[2017-07-25] MEDS ORDERED: FURO1TAB60 PO (09:18)
[2017-07-25] MEDS: CITALOPRAM HYDROBROMIDE 20 MG TAB PO SCH (09:18)
[2017-07-25] MEDS: TAMSULOSIN HCL 0.4 MG CAP PO SCH (09:18)
--- NOTE | 2017-07-25 09:18 | HHI.DS ---
Discharge Summary Admission Date Jul 24, 2017 at 02:32 Discharge Date: Jul 25, 2017 Admitting Diagnosis New onset CHF, intermediate troponin (1) CHF (congestive heart failure) ICD Code: I50.9 - Heart failure, unspecified (2) Hypertensive urgency ICD Code: I16.0 - Hypertensive urgency (3) Elevated troponin I level ICD Code: R74.8 - Abnormal levels of other serum enzymes Procedures none Brief History - From Admission Mr. Perez is a 62 y/o male with CAD s/p CABG x 2 05/30/17 who presented to the ED on 07/23/17 because his family was worried about lower extremity edema that had developed earlier in the day. The patient is seen on the medical floor. He is awakened for history and exam. He answers all of my questions but keeps his eyes closed. He denies chest pain. He's had some intermittent dyspnea on exertion and leg swelling. He reports that he is breathing better since evaluation and treatment in the ED. He denies cough or congestion but reported cough with white sputum production to the ER physician. He is not very cooperative during my visit. CBC/BMP: 07/25/17 0539 07/25/17 0539 Significant Findings Laboratory Tests Test 07/23/17 23:57 07/24/17 01:40 07/24/17 09:41 07/24/17 16:39 Red Blood Count 4.13 MIL/MM3 (4.50-5.90) Hemoglobin 11.3 GM/DL (13.0-17.0) Hematocrit 33.8 % (39.0-51.0) Mean Platelet Volume 6.7 FL (7.0-11.0) Monocytes (%) (Auto) 10.8 % (0.0-8.0) Eosinophils (%) (Auto) 4.2 % (0.0-4.0) Prothrombin Time 31.3 SEC (9.8-11.6) Activated Partial Thromboplast Time 51.8 SEC (24.3-30.1) Blood Urea Nitrogen 22 MG/DL (7-18) Creatinine 2.39 MG/DL (0.60-1.30) Albumin 2.8 GM/DL (3.4-5.0) Calcium Level 8.1 MG/DL (8.5-10.1) Chloride Level 111 MEQ/L (98-107) Estimat Glomerular Filtration Rate 33 ML/MIN (>89) Troponin I 0.10 NG/ML (0.02-0.05) 0.09 NG/ML (0.02-0.05) 0.09 NG/ML (0.02-0.05) B-Type Natriuretic Peptide 309 PG/ML (0-100) Urine Protein 100 mg/dL (NEG-TRACE) Urine Bacteria RARE /hpf (NONE) Urine Mucus FEW /lpf (OCC) Test 07/25/17 05:39 Red Blood Count 4.01 MIL/MM3 (4.50-5.90) Hemoglobin 10.8 GM/DL (13.0-17.0) Hematocrit 32.8 % (39.0-51.0) Mean Platelet Volume 6.8 FL (7.0-11.0) Monocytes (%) (Auto) 9.2 % (0.0-8.0) Eosinophils (%) (Auto) 4.8 % (0.0-4.0) Prothrombin Time 21.4 SEC (9.8-11.6) Blood Urea Nitrogen 24 MG/DL (7-18) Creatinine 2.22 MG/DL (0.60-1.30) Albumin 2.5 GM/DL (3.4-5.0) Calcium Level 8.1 MG/DL (8.5-10.1) Estimat Glomerular Filtration Rate 36 ML/MIN (>89) Imaging Last Impressions Chest X-Ray 07/23/17 2023 Signed Impressions: Service Date/Time: Monday, July 24, 2017 00:03 - CONCLUSION: 1. Minimal basilar airspace disease. Small right pleural effusion. Postoperative median sternotomy. Delgado Malhotra MD PE at Discharge GENERAL: This is a sleeping patient, in no apparent distress, does not interact very much with examiner; lying in bed with eyes closed throughout. SKIN: No rashes. Cool and dry. Left posterior thoracotomy scar noted - patient tells me someone operated on his lung - wont say more than that. CARDIOVASCULAR: Regular rate and rhythm without murmurs, gallops, or rubs. RESPIRATORY: Breath sounds diminished at bases, equal bilaterally. No wheezes, rales, or rhonchi. GASTROINTESTINAL: Abdomen soft, non-tender, nondistended. No guarding. MUSCULOSKELETAL: Extremities without clubbing, cyanosis. 1+ lE edema. No calf tenderness. NEUROLOGICAL: Sleepy. Normal speech. Hospital Course Mr. Perez is a 62 y/o male with CAD s/p CABG x 2 05/30/17 who presented to the ED on 07/23/17 because his family was worried about lower extremity edema that had developed earlier in the day. CHF - BNP is 309; CXR shows minimal basilar airspace disease, small right pleural effusion. - received Lasix 60 mg IV in ED - continue home Lasix - Echo 06/01/17 - EF 55-60% with moderate to severe concentric left ventricular hypertrophy - recheck 2 D echo reviewed - consult cardiology - Nitroglycerin 0.5" q6h topical - continue home beta gena therapy - continuous cardiac telemetry to monitor for arrhythmias - Monitor strict I and Os Hypertensive urgency - questionable compliance with home medication regimen - Hydralazine 10 mg IV q6h PRN BP > 170/100 - continue home antihypertensives - follow bp trends and adjust treatments as indicated - urine toxicology negative (patient with hx of cocaine abuse) Elevated troponin I - initial troponin I is 0.10, stable. no further work up per cardio EKG personally reviewed and shows no acute ST segment elevation but T waves are noted inverted in leads: 1, avL, V2, V4, V5, V6 Tobacco Abuse - patient to quit smoking - will need reinforcement when he is more cooperative DVT prophylaxis - continue Coumadin - target INR 2 - 3 for atrial fibrillation Improving. Cleared by cardio for DC. Patient DC in stable condition to follow up as OP with PCP and consultants. Advice compliance with meds. and follow up Pt Condition on Discharge: Stable Discharge Disposition: Discharge Home Discharge Time: > 30 minutes Discharge Instructions DIET: Follow Instructions for: Heart Healthy Diet Activities you can perform: Regular-No Restrictions Follow up Referrals: Cardiology - 2 Weeks PCP Follow-up - 2-3 Days Continued Medications: Acetaminophen (Tylenol) 325 Mg Tab 650 MG PO Q6H PRN for PAIN SCALE 1 TO 5, #30 TAB 0 Refills Aspirin (Px Aspirin) 325 Mg Tab 81 MG PO DAILY for Blood Clot Prevention, #30 TAB 2 Refills Atorvastatin (Atorvastatin) 40 Mg Tab 80 MG PO HS for Cholesterol Management, #30 TAB 2 Refills Citalopram (Citalopram) 20 Mg Tab 20 MG PO DAILY for Control Depression, #30 TAB 0 Refills Docusate Sodium (Dok) 100 Mg Cap 100 MG PO daily for Constipation, #30 CAP 0 Refills Furosemide (Lasix) 40 Mg Tab 40 MG PO DAILY for edema , #30 TAB 0 Refills (This prescription has been renewed ) Hydralazine HCl (Hydralazine HCl) 25 Mg Tablet 25 MG PO Q8HR for Blood Pressure Management, #90 TAB 2 Refills Metoprolol Tartrate (Lopressor) 50 Mg Tab 50 MG PO Q12HR for Blood Pressure Management, #60 TAB 2 Refills Mirtazapine (Mirtazapine) 15 Mg Tab 15 MG PO HS for depression, #30 TAB 2 Refills Multiple Vitamins W/ Minerals (Thera M Plus) 1 Tab 1 TAB PO DAILY for vitamin , #30 TAB Pantoprazole (Pantoprazole) 40 Mg Tab 40 MG PO DAILY@06 for gerd, #30 TAB 2 Refills Tamsulosin (Flomax) 0.4 Mg Cap 0.4 MG PO Q12HR for urinary retention , #60 CAP 2 Refills Warfarin (Coumadin) 5 Mg Tab 5 MG PO DAILY for Blood Clot Prevention, #30 TAB 2 Refills goal 2-3 hold INR > 3.5 Chloé Buckner MD Jul 25, 2017 09:18
--- NOTE | 2017-07-25 09:18 | HHI.DCPOC ---
Discharge Care Plan Goals to Promote Your Health * To prevent worsening of your condition and complications * To maintain your health at the optimal level Directions to Meet Your Goals Take your medications as prescribed Follow your dietary instruction Follow activity as directed Keep your appointments as scheduled Take your immunizations and boosters as scheduled If your symptoms worsen call your PCP, if no PCP go to Urgent Care Center or Emergency Room Smoking is Dangerous to Your Health. Avoid second hand smoke Call the 24-hour hour crisis hotline for domestic abuse at Chloé Buckner MD Jul 25, 2017 09:18
[2017-07-25] MEDS: FUROSEMIDE 40 MG TAB PO SCH (09:19)
[2017-07-25] MEDS: METOPROLOL TARTRATE 50 MG TAB PO SCH (09:19)
[2017-07-25] MEDS: MULTIVITAMINS/MINERALS THERAPEUTIC TAB PO SCH (09:22)
--- NOTE | 2017-07-25 15:35 | ECHRPT ---
Indication: heart failure CONCLUSIONS Normal left ventricular size. The left ventricular systolic function is normal with an estimated ejection fraction in the range of 55-60%. Moderate concentric left ventricular hypertrophy. The left atrial size is upper limits of normal. [id number] mitral valve regurgitation. No aortic valve regurgitation. No aortic valve stenosis. There is mild tricuspid valve regurgitation. The estimated pulmonary arterial pressure is 45.3 mmHg. BP: / HR: Rhythm: MEASUREMENTS (Male / Female) Normal Values Technical Quality:Good 2D ECHO LV Diastolic Diameter PLAX 3.7 cm 4.2 - 5.9 / 3.9 - 5.3 cm LV Systolic Diameter PLAX 2.8 cm IVS Diastolic Thickness 2.1 cm 0.6 - 1.0 / 0.6 - 0.9 cm LVPW Diastolic Thickness 2.2 cm 0.6 - 1.0 / 0.6 - 0.9 cm LV Relative Wall Thickness 1.2 RV Internal Dim ED PLAX 2.3 cm M-MODE Aortic Root Diameter MM 3.5 cm LA Systolic Diameter MM 4.0 cm LA Ao Ratio MM 1.1 AV Cusp Separation MM 1.9 cm DOPPLER Mitral E Point Velocity 53.8 cm/s Mitral A Point Velocity 64.2 cm/s Mitral E to A Ratio 0.8 LV E' Lateral Velocity 6.8 cm/s Mitral E to LV E' Lateral Ratio 7.9 LV E' Septal Velocity 4.1 cm/s Mitral E to LV E' Septal Ratio 13.2 TR Peak Velocity 297.0 cm/s TR Peak Gradient 35.3 mmHg Right Atrial Pressure 10.0 mmHg Pulmonary Artery Systolic Pressu 45.3 mmHg Right Ventricular Systolic Press 45.3 mmHg FINDINGS LEFT VENTRICLE Normal left ventricular size. The left ventricular systolic function is normal with an estimated ejection fraction in the range of 55-60%. Moderate concentric left ventricular hypertrophy. RIGHT VENTRICLE Normal right ventricular size and systolic function. LEFT ATRIUM The left atrial size is upper limits of normal. RIGHT ATRIUM The right atrial size is normal. ATRIAL SEPTUM Normal atrial septal thickness without atrial level shunting by limited color doppler interrogation. AORTA The aortic root and proximal ascending aorta are normal in size on limited imaging. MITRAL VALVE Structurally normal mitral valve. [id number] mitral valve regurgitation. AORTIC VALVE Trileaflet aortic valve. No aortic valve regurgitation. No aortic valve stenosis. TRICUSPID VALVE Structurally normal tricuspid valve. There is mild tricuspid valve regurgitation. The estimated pulmonary arterial pressure is 45.3 mmHg. PULMONARY VALVE No pulmonary valve regurgitation or stenosis. VESSELS The inferior vena cava is normal in size. PERICARDIUM No pericardial effusion. Chuy De La Garza MD (Electronically Signed) Final Date:25 July 2017 15:33
[2017-07-30] MEDS ORDERED: NALOXONE HCL 0.4 MG/ML AMP IV PUSH PRN (12:30)
[2017-07-30] MEDS ORDERED: SODIUM CHLORIDE 0.9% FLUSH 10 ML FLUSH IV FLUSH PRN (12:30)
[2017-07-30] MEDS ORDERED: SENNOSIDES 8.6 MG TAB PO PRN (12:30)
[2017-07-30] MEDS ORDERED: MAGNESIUM HYDROXIDE SUSP 30 ML CUP PO PRN (12:30)
[2017-07-30] MEDS ORDERED: LACTULOSE SYRUP 20 GM/30 ML CUP PO PRN (12:30)
[2017-07-30] MEDS ORDERED: BISACODYL 10 MG SUPP RECTAL PRN (12:30)
[2017-07-30] MEDS ORDERED: ACETAMINOPHEN 325 MG TAB PO PRN (12:30)
[2017-07-30] MEDS ORDERED: HEPARIN SODIUM - SQ 10,000 UNITS/ML VIAL SQ SCH (12:30)
[2017-07-30] MEDS ORDERED: ONDANSETRON HCL 4 MG/2 ML VIAL IVP PRN (12:30)
--- NOTE | 2017-07-30 14:27 | RADRPT ---
EXAM DATE/TIME: 07/30/2017 13:50 [facility] COMPARISON: No previous studies available for comparison. INDICATIONS : Syncope. MEDICAL HISTORY : Hypertension. Myocardial infarction. Coronary artery disease. Substance abuse. SURGICAL HISTORY : Coronary artery stent. CABG. Appendectomy. Hernia repair. ENCOUNTER: Subsequent ACUITY: 2 months PAIN SCORE: 0/10 LOCATION: Bilateral neck PEAK SYSTOLIC VELOCITIES (cm/sec): ICA/CCA RATIO: Right: 1.1 Left: 0.7 ICA: Right: 96.3 Left: 97.9 CCA: Right: 84.9 Left: 137.1 ECA: Right: 118.9 Left: 81.1 VERTEBRAL: Right: 69.4 antegrade Left: 57.8 antegrade Elevated flow velocities and ICA/CCA ratios have been found to correlate with increased degrees of vessel stenosis, calculated as percentage of diameter relative to a normal segment of distal ICA/CCA FINDINGS: RIGHT CAROTID: No significant stenosis is visualized. Moderate plaque. The waveforms are within normal limits. LEFT CAROTID: No significant stenosis is visualized. Moderate plaque. The waveforms are within normal limits. VERTEBRAL ARTERIES: Antegrade flow is seen in both vertebral arteries. MISCELLANEOUS: None. CONCLUSION: 1. Moderate plaque. 2. No hemodynamically significant stenosis in either carotid artery. Howard Burkett MD on July 30, 2017 at 14:25 Board Certified Radiologist. This report was verified electronically.
[2017-07-30] MEDS ORDERED: SODIUM CHLORIDE 0.9% FLUSH 10 ML FLUSH IV FLUSH SCH (21:00)
[2017-07-30] MEDS ORDERED: DOCUSATE SODIUM 50 MG/SENNA 8.6 MG TAB PO SCH (21:00)
[2017-07-31] MEDS ORDERED: REGADENOSON INJ 0.4 MG/5 ML SYR ONE (09:38)
== END 2017-07-25 12:35 | disposition home or self-care (01) ==
LOC: NEPC 22:43 → INTOOBSV 07-24 02:27 → NEDA 07-24 02:27 → UNDOADMIN 07-24 02:32 → NEDA 07-24 02:32 → HCIS 07-24 03:07 → NEDA 07-24 03:07 → UNDODISIN 07-25 12:35
PROVIDERS: ADMIT Hospitalist; ATTEND Hospitalist
DX: J90 Pleural effusion, not elsewhere classified (principal); I16.0 Hypertensive urgency; R60.0 Localized edema; R05 Cough; R06.09 Other forms of dyspnea; F17.210 Nicotine dependence, cigarettes, uncomplicated; I25.10 Atherosclerotic heart disease of native coronary artery without angina pectoris; I13.0 Hypertensive heart and chronic kidney disease with heart failure and stage 1 through stage 4 chronic kidney disease, or unspecified chronic kidney disease; N18.9 Chronic kidney disease, unspecified; F32.9 Major depressive disorder, single episode, unspecified; F41.9 Anxiety disorder, unspecified; R74.8 Abnormal levels of other serum enzymes; E78.5 Hyperlipidemia, unspecified; Z95.1 Presence of aortocoronary bypass graft; Z86.73 Personal history of transient ischemic attack (TIA), and cerebral infarction without residual deficits; Z79.82 Long term (current) use of aspirin; Z79.01 Long term (current) use of anticoagulants; Z79.899 Other long term (current) drug therapy
CPT/HCPCS: 71045; 80053; 80307; 81001; 82550; 83690; 83735; 83880; 84484; 85025; 85610; 85730; 93005; 93306; 96374; 99285; G0378; J1940

== ENCOUNTER 2017-07-30 08:40 | Observation (INO) | payer OTHER ==
[~2017-07-30] VITALS: Ht 165.1 cm; Wt 90.0 kg
[2017-07-30 08:41] VITALS: BP 179/94; PULSE 76; RESP 14; TEMP 98.2; O2SAT 99
--- NOTE | 2017-07-30 09:11 | PD ---
HPI Chief Complaint: Dizziness Time Seen by Provider: 09:02 Travel History International Travel<30 days: No Contact w/Intl Traveler<30days: No Traveled to known affect area: No History of Present Illness HPI 62 y/o male presents with feeling short of breath and dizzy like he felt when he had his heart issue a month ago. He states originally he had a stent placed by Dr. Malhotra and then he had bypass surgery. He states that he felt like his pressure was high and he got sweaty at rest. He denies any chest pain or chest pressure other concurrent concerns at this time. He feels a little bit better here now at rest. He denies specific modifying factors. He states this occurred shortly before he came in. PFSH Past Medical History Anxiety: Yes Depression: Yes Cardiac Catheterization: Yes Cardiovascular Problems: Yes Chest Pain: Yes Diminished Hearing: No Hypertension: Yes Implanted Vascular Access Dvce: Yes Immunizations Current: No Past Surgical History Abdominal Surgery: Yes (HERNIA REPAIR) Appendectomy: Yes Body Medical Devices: stents in heart Cardiac Surgery: Yes (CABG 2016) Coronary Stent: Yes Other Surgery: Yes (LUNGS A CHILD, DOES NOT KNOW SPECIFICS) Social History Alcohol Use: Yes (OCC) Tobacco Use: No (1 PPD) Substance Use: No Allergies-Medications (Allergen,Severity, Reaction): Coded Allergies: morphine (Verified Adverse Reaction, Intermediate, Confusion, 07/24/17) Reported Meds & Prescriptions Reported Meds & Active Scripts Active Lasix (Furosemide) 40 Mg Tab 40 Mg PO DAILY Coumadin (Warfarin) 5 Mg Tab 5 Mg PO DAILY goal 2-3 hold INR > 3.5 Tylenol (Acetaminophen) 325 Mg Tab 650 Mg PO Q6H PRN Dok (Docusate Sodium) 100 Mg Cap 100 Mg PO DAILY Thera M Plus (Multivitamins/Minerals Therapeutic) 1 Tab 1 Tab PO DAILY Pantoprazole (Pantoprazole Sodium) 40 Mg Tab 40 Mg PO DAILY@06 Mirtazapine 15 Mg Tab 15 Mg PO HS Px Aspirin (Aspirin) 325 Mg Tab 81 Mg PO DAILY Lopressor (Metoprolol Tartrate) 50 Mg Tab 50 Mg PO Q12HR Hydralazine HCl 25 Mg Tablet 25 Mg PO Q8HR Atorvastatin (Atorvastatin Calcium) 40 Mg Tab 80 Mg PO HS Flomax (Tamsulosin HCl) 0.4 Mg Cap 0.4 Mg PO Q12HR Reported Citalopram (Citalopram Hydrobromide) 20 Mg Tab 20 Mg PO DAILY Review of Systems Except as stated in HPI: all other systems reviewed are Neg Physical Exam Narrative GENERAL: 62-year-old male in no apparent distress SKIN: Focused skin assessment warm/dry. HEAD: Atraumatic. Normocephalic. EYES: Pupils equal and round. No scleral icterus. No injection or drainage. ENT: No nasal bleeding or discharge. Mucous membranes pink and moist. NECK: Trachea midline. No JVD. CARDIOVASCULAR: Regular rate and rhythm. RESPIRATORY: No accessory muscle use. No increased effort GASTROINTESTINAL: Abdomen nondistended. NEUROLOGICAL: Awake and alert. No obvious cranial nerve deficits. Motor grossly within normal limits. Normal speech. PSYCHIATRIC: Appropriate mood and affect; insight and judgment normal. Data Data Last Documented VS Vital Signs Date Time Temp Pulse Resp B/P (MAP) Pulse Ox O2 Delivery O2 Flow Rate FiO2 07/30/17 09:05 Room Air 07/30/17 08:41 98.2 76 14 179/94 (122) 99 Orders Orders Electrocardiogram (07/30/17 09:06) B-Type Natriuretic Peptide (07/30/17 09:06) Ckmb (Isoenzyme) Profile (07/30/17 09:06) Complete Blood Count With Diff (07/30/17 09:06) Comprehensive Metabolic Panel (07/30/17 09:06) Magnesium (Mg) (07/30/17 09:06) Prothrombin Time / Inr (Pt) (07/30/17 09:06) Act Partial Throm Time (Ptt) (07/30/17 09:06) Troponin I (07/30/17 09:06) Chest, Single Ap (07/30/17 09:06) Ecg Monitoring (07/30/17 09:06) Bilateral Bp Monitoring (07/30/17 09:06) Iv Access Insert/Monitor (07/30/17 09:06) Oximetry (07/30/17 09:06) Sodium Chloride 0.9% Flush (Ns Flush) (07/30/17 09:15) Aspirin (Aspirin) (07/30/17 10:45) Consult Cardiology (07/30/17 ) Admit Order (Ed Use Only) (07/30/17 10:56) Labs Laboratory Tests Test 07/30/17 09:30 White Blood Count 7.0 TH/MM3 Red Blood Count 3.97 MIL/MM3 Hemoglobin 11.0 GM/DL Hematocrit 32.6 % Mean Corpuscular Volume 82.1 FL Mean Corpuscular Hemoglobin 27.7 PG Mean Corpuscular Hemoglobin Concent 33.8 % Red Cell Distribution Width 16.9 % Platelet Count 225 TH/MM3 Mean Platelet Volume 6.6 FL Neutrophils (%) (Auto) 48.2 % Lymphocytes (%) (Auto) 37.7 % Monocytes (%) (Auto) 9.3 % Eosinophils (%) (Auto) 3.7 % Basophils (%) (Auto) 1.1 % Neutrophils # (Auto) 3.4 TH/MM3 Lymphocytes # (Auto) 2.6 TH/MM3 Monocytes # (Auto) 0.6 TH/MM3 Eosinophils # (Auto) 0.3 TH/MM3 Basophils # (Auto) 0.1 TH/MM3 CBC Comment DIFF FINAL Differential Comment Prothrombin Time 13.7 SEC Prothromb Time International Ratio 1.4 RATIO Activated Partial Thromboplast Time 34.1 SEC Blood Urea Nitrogen 23 MG/DL Creatinine 2.20 MG/DL Random Glucose 84 MG/DL Total Protein 8.0 GM/DL Albumin 3.3 GM/DL Calcium Level 9.0 MG/DL Magnesium Level 1.9 MG/DL Alkaline Phosphatase 106 U/L Aspartate Amino Transf (AST/SGOT) 25 U/L Alanine Aminotransferase (ALT/SGPT) 15 U/L Total Bilirubin 0.3 MG/DL Sodium Level 141 MEQ/L Potassium Level 3.7 MEQ/L Chloride Level 106 MEQ/L Carbon Dioxide Level 29.2 MEQ/L Anion Gap 6 MEQ/L Estimat Glomerular Filtration Rate 37 ML/MIN Total Creatine Kinase 63 U/L Troponin I 0.10 NG/ML B-Type Natriuretic Peptide 208 PG/ML MDM Medical Decision Making Medical Screen Exam Complete: Yes Emergency Medical Condition: Yes Medical Record Reviewed: Yes (Past history confirmed) Interpretation(s) CBC & BMP Diagram 07/30/17 09:30 Total Protein 8.0 #, Albumin 3.3 L, Calcium Level 9.0, Magnesium Level 1.9, Alkaline Phosphatase 106, Aspartate Amino Transf (AST/SGOT) 25, Alanine Aminotransferase (ALT/SGPT) 15, Total Bilirubin 0.3 Last 24 hours Impressions Chest X-Ray 07/30/17 0906 Signed Impressions: Service Date/Time: Sunday, July 30, 2017 09:22 - CONCLUSION: 1. Right basilar atelectasis. 2. Cardiomegaly and previous CABG. Howard Burkett MD Differential Diagnosis CHF, anemia, renal failure, atypical Narrative Course We will check blood work, EKG, chest x-ray and reevaluate. Patient has mild elevation in troponin which is similar to prior. He agrees to admit to the hospital for trending and I will discuss this with his careers adviser. We will dose with aspirin. Physician Communication Physician Communication dr carbajal agrees to plan resident team agrees to admit Diagnosis Primary Impression: Elevated troponin I level Additional Impressions: S/P CABG (coronary artery bypass graft) Shortness of breath Admitting Information Admitting Physician Requests: Observation Dali Silverio MD Jul 30, 2017 09:11
[2017-07-30] MEDS ORDERED: SODIUM CHLORIDE 0.9% FLUSH 10 ML FLUSH IVF PRN (09:15)
--- NOTE | 2017-07-30 09:40 | RADRPT ---
EXAM DATE/TIME: 07/30/2017 09:22 [facility] COMPARISON: CHEST SINGLE AP, July 24, 2017, 0:03. INDICATIONS : Chest pain and dizziness. MEDICAL HISTORY : Congestive heart failure. SURGICAL HISTORY : CABG. ENCOUNTER: Initial ACUITY: 1 day PAIN SCORE: 0/10 LOCATION: Bilateral chest FINDINGS: A single view of the chest demonstrates minimal right basal atelectasis without evidence of mass, inf iltrate or effusion. Cardiomegaly and previous CABG. The cardiomediastinal contours are unremarkable. Osseous structures are intact. CONCLUSION: 1. Right basilar atelectasis. 2. Cardiomegaly and previous CABG. Howard Burkett MD on July 30, 2017 at 9:38 Board Certified Radiologist. This report was verified electronically.
[2017-07-30 09:48] LABS: AUTOMATED NEUTROPHIL # 3.4 TH/MM3 (1.8-7.7); BASOPHIL # 0.1 TH/MM3 (0-0.2); BASOPHIL % 1.1 % (0.0-2.0); EOSINOPHIL # 0.3 TH/MM3 (0-0.4); EOSINOPHIL % 3.7 % (0.0-4.0); HEMATOCRIT 32.6 % (39.0-51.0); LYMPH % 37.7 % (9.0-44.0); LYMPHOCYTE # 2.6 TH/MM3 (1.0-4.8); MEAN CELL VOLUME 82.1 FL (80.0-100.0); MEAN CORPUSCULAR HEMOGLOBIN 27.7 PG (27.0-34.0); MEAN CORPUSCULAR HGB CONC 33.8 % (32.0-36.0); MEAN PLATELET VOLUME 6.6 FL (7.0-11.0); MONO % 9.3 % (0.0-8.0); MONOCYTE # 0.6 TH/MM3 (0-0.9); NEUT % 48.2 % (16.0-70.0); PLATELET COUNT 225 TH/MM3 (150-450); RED BLOOD COUNT 3.97 MIL/MM3 (4.50-5.90); RED CELL DISTRIBUTION WIDTH 16.9 % (11.6-17.2)
[2017-07-30 10:00] LABS: INTERNATIONAL NORMALIZED RATIO 1.4 RATIO; PROTHROMBIN TIME - PATIENT 13.7 SEC (9.8-11.6)
[2017-07-30 10:17] LABS: ALBUMIN 3.3 GM/DL (3.4-5.0); ALT (GPT) 15 U/L (12-78); AST (GOT) 25 U/L (15-37); BICARBONATE 29.2 MEQ/L (21.0-32.0); BLOOD UREA NITROGEN 23 MG/DL (7-18); CHLORIDE 106 MEQ/L (98-107); GLOMERULAR FILTRATION RATE 37 ML/MIN (>89); GLUCOSE,RANDOM 84 MG/DL (74-106); MAGNESIUM 1.9 MG/DL (1.5-2.5); SODIUM (NA) 141 MEQ/L (136-145)
[2017-07-30 10:21] LABS: ALKALINE PHOSPHATASE 106 U/L (45-117); TOTAL BILIRUBIN ADULT 0.3 MG/DL (0.2-1.0)
[2017-07-30] MEDS ORDERED: ASPIRIN 325 MG TAB PO ONE (10:45)
[2017-07-30 11:06] VITALS: BP 175/98; PULSE 70; RESP 18; O2SAT 97
[2017-07-30] MEDS ORDERED: PRAS10TA PO (11:15)
--- NOTE | 2017-07-30 11:46 | HHI.HP ---
HPI Service Family Medicine Primary Care Physician Unknown Admission Diagnosis shortness of breath, elevated troponin Diagnoses: International Travel<30 Days: No Contact w/Intl Traveler<30days: No Known Affected Area: No History of Present Illness 62 yo M presenting to the ED with dizziness, malaise, lightheadedness. Awoke at 5 AM this morning with said symptoms, was in normal state of health yesterday. Was unsteady on his feet this morning but didn't pass out/black out. [place] that he may pass out though. Of note he had another episode of dizziness several days ago and had to sit down for 30+ minutes until he felt normal again. States he only ate one time yesterday (half a pizza), has been drinking plenty of fluids. No decreased UO, last BM was yesterday (nonbloody, hard). No chest pain. He does endorse SOB on exertion, cough with minimal sputum production ( unsure if it had a particular color), fever/sweats this AM as well (subjective only). (Jaleel Gomez MD R1) Review of Systems Constitutional: COMPLAINS OF: Diaphoretic episodes, Fever, Chills, Dizziness, DENIES: Weight gain, Weight loss Endocrine: DENIES: Polydipsia, Polyuria Eyes: DENIES: Blurred vision, Vision loss Ears, nose, mouth, throat: DENIES: Nasal discharge, Throat pain, Running Nose Respiratory: COMPLAINS OF: Cough, Sputum production, Shortness of breath, DENIES: Wheezing, Hemoptysis Cardiovascular: COMPLAINS OF: Lower Extremity Edema, DENIES: Chest pain, Palpitations Gastrointestinal: COMPLAINS OF: Constipation, DENIES: Abdominal pain, Bloody stools, Diarrhea, Nausea, Vomiting Genitourinary: DENIES: Dysuria Integumentary: DENIES: Rash Hematologic/lymphatic: DENIES: Lymphadenopathy Neurologic: COMPLAINS OF: Poor Balance, DENIES: Headache (Jaleel Gomez MD R1) Past Family Social History Past Medical History Hypertension Hyperlipidemia CKD CAD s/p CABG x 2 05/30/17 and stent Diagnosed with new onset CHF in June 2017 tobacco abuse history of cocaine abuse . Past Surgical History CABG x 2 with stent placement 05/30/17 - Dr. Casas Hernia repair Appendectomy (Jaleel Gomez MD R1) Allergies: Coded Allergies: morphine (Verified Adverse Reaction, Intermediate, Confusion, 07/24/17) Family History Heart disease in mother Social History Lives at home with two adult sons, ex Alcohol Use: Former - 6 months since last drink (drank a lot in the past) Tobacco Use: 1 ppd since age 14 Substance Use: former user of marijuana, cocaine, LSD (last used 10+ years ago) (Jaleel Gomez MD R1) Physical Exam Vital Signs Vital Signs Date Time Temp Pulse Resp B/P (MAP) Pulse Ox O2 Delivery O2 Flow Rate FiO2 07/30/17 11:06 70 18 175/98 (123) 97 Room Air 07/30/17 09:05 Room Air 07/30/17 08:41 98.2 76 14 179/94 (122) 99 Physical Exam GENERAL: This is a well-nourished, well-developed patient sitting in bed in no apparent distress. SKIN: No rashes, ecchymoses or lesions. Cool and dry. HEAD: Atraumatic. Normocephalic. No temporal or scalp tenderness. EYES: Pupils equal round and reactive. Extraocular motions intact. No scleral icterus. No injection or drainage. ENT: Nose without bleeding, purulent drainage or septal hematoma. Throat without erythema, tonsillar hypertrophy or exudate. Uvula midline. Airway patent. NECK: Trachea midline. No JVD or lymphadenopathy. Supple, nontender, no meningeal signs. CARDIOVASCULAR: Regular rate and rhythm without murmurs, gallops, or rubs. RESPIRATORY: Clear to auscultation. Breath sounds equal bilaterally. No wheezes or crackles appreciated. GASTROINTESTINAL: Abdomen soft, non-tender, nondistended. No hepato-splenomegaly , or palpable masses. No guarding. MUSCULOSKELETAL: 1+ pitting edema appreciated to the level of the tibial plateau bilaterally. No joint tenderness, effusion, or edema noted. No calf tenderness. Negative Homans sign bilaterally. NEUROLOGICAL: Awake and alert. Cranial nerves II through XII intact. Motor and sensory grossly within normal limits. Five out of 5 muscle strength in all muscle groups. Normal speech. Laboratory Laboratory Tests Test 07/30/17 09:30 White Blood Count 7.0 Red Blood Count 3.97 Hemoglobin 11.0 Hematocrit 32.6 Mean Corpuscular Volume 82.1 Mean Corpuscular Hemoglobin 27.7 Mean Corpuscular Hemoglobin Concent 33.8 Red Cell Distribution Width 16.9 Platelet Count 225 Mean Platelet Volume 6.6 Neutrophils (%) (Auto) 48.2 Lymphocytes (%) (Auto) 37.7 Monocytes (%) (Auto) 9.3 Eosinophils (%) (Auto) 3.7 Basophils (%) (Auto) 1.1 Neutrophils # (Auto) 3.4 Lymphocytes # (Auto) 2.6 Monocytes # (Auto) 0.6 Eosinophils # (Auto) 0.3 Basophils # (Auto) 0.1 CBC Comment DIFF FINAL Differential Comment Prothrombin Time 13.7 Prothromb Time International Ratio 1.4 Activated Partial Thromboplast Time 34.1 Blood Urea Nitrogen 23 Creatinine 2.20 Random Glucose 84 Total Protein 8.0 Albumin 3.3 Calcium Level 9.0 Magnesium Level 1.9 Alkaline Phosphatase 106 Aspartate Amino Transf (AST/SGOT) 25 Alanine Aminotransferase (ALT/SGPT) 15 Total Bilirubin 0.3 Sodium Level 141 Potassium Level 3.7 Chloride Level 106 Carbon Dioxide Level 29.2 Anion Gap 6 Estimat Glomerular Filtration Rate 37 Total Creatine Kinase 63 Troponin I 0.10 B-Type Natriuretic Peptide 208 (Jaleel Gomez MD R1) Result Diagram: 07/30/17 0930 07/30/17 0930 Imaging Last 48 hours Impressions Chest X-Ray 07/30/17 0906 Signed Impressions: Service Date/Time: Sunday, July 30, 2017 09:22 - CONCLUSION: 1. Right basilar atelectasis. 2. Cardiomegaly and previous CABG. Howard Burkett MD (Jaleel Gomez MD R1) Caprini VTE Risk Assessment Caprini VTE Risk Assessment: Mod/High Risk (score >= 2) (Jaleel Gomez MD R1) Assessment and Plan Assessment and Plan 62-year-old male with history of hypertension, hyperlipidemia, new onset CHF diagnosed 1 week prior, CKD, CAD status post CABG and 2 stent placements in May/2017 presenting to the ED with dizziness, malaise and shortness of breath. Admitted to observation after found to have mildly elevated troponins at 0.10 Code Status Full code Discussed Condition With Dr. Leblanc (Jaleel Gomez MD R1) Attending Attestation Patient seen and examined, discussed with resident team. I agree with assessment and management as documented and discussed with me. Edmond Perez is a 62yo gentleman with recently diagnosed CHF admitted for presyncope. It appears that he has not been adherent with diet, eating a pizza prior to admission. Appreciate cardiology. Additional diagnosis: Anemia of chronic disease: at baseline. No obvious active bleeding. Secondary to kidney disease. (Rhonda Leblanc MD) Problem List: (1) Pre-syncope ICD Codes: R55 - Syncope and collapse Plan: Patient admitted with 1 day history of dizziness, shortness of breath, lightheadedness Cardiology consulted - appreciate recommendations Presyncope workup as follows ACS rule out with EKG, trending troponins Carotid artery ultrasound Patient had echocardiogram 1 week ago showing LVH with preserved ejection fraction of 55-60% - will not repeat at this time Cardiology recommending nuclear stress test tomorrow CT brain without contrast pending UA, UDS pending Orthostatic blood pressure ordered Ammonia level order TSH ordered Bedside glucose Patient has history of alcohol, substance abuse. States he has not use drugs in 10 years, alcohol over the last 6 months CIWA protocol ordered (2) Elevated troponin I level ICD Codes: R74.8 - Abnormal levels of other serum enzymes Plan: Initial troponin 0.10 No change from recent hospitalization Will trend troponins, EKGs See presyncope workup as above (3) Shortness of breath ICD Codes: R06.02 - Shortness of breath Status: Acute Plan: Patient presenting with shortness of breath on exertion, cough with occasional sputum production, fever/sweats this morning Chest x-ray showing right basilar atelectasis, cardiomegaly Patient appearing fluid overloaded on exam BNP related at 208, was 309 on 07/23 Continue Lasix 40 mg daily Follow-up cardiac, presyncopal workup as above (4) CHF (congestive heart failure) ICD Codes: I50.9 - Heart failure, unspecified Plan: Patient diagnosed with acute onset CHF at previous hospitalization on Echo at that time showing ejection fraction 55-60%, LVH Appearing fluid overloaded on exam Cardiology consultation, patient recommendations Continue Lasix 40 mg daily (5) CKD (chronic kidney disease) ICD Codes: N18.9 - Chronic kidney disease, unspecified Plan: Creatinine elevated at 2.20 on admission This appears to be chronic as recent hospitalizations of all had creatinines elevated over 2 and as high as 2.71 Avoid nephrotoxic agents Avoiding IV fluids at this time as patient is expressing shortness of breath, possible fluid overload Follow-up a.m. labs (6) HTN (hypertension) ICD Codes: I10 - Essential (primary) hypertension Status: Chronic Plan: Patient has history of hypertension Blood pressure is elevated on admission and 170 systolic over 90s diastolic Metoprolol tartrate 50 mg by mouth twice a day Continuing home hydralazine 25 mg by mouth 3 times a day Adding hydralazine 10 mg IV push every 6 hours as needed for systolic pressures greater than 170, diastolic over 100 (7) FEN Plan: No IV fluids at this time Electrolytes within normal limits, will replace as needed Nothing by mouth at midnight for nuclear myocardial perfusion scan tomorrow DVT prophylaxis: Continuing warfarin 5 mg daily as previously prescribed, INR 1.4 on admission Compliance with warfarin is questionable at this time, with INR subtherapeutic we will start heparin 3 times a day (Jaleel Gomez MD R1) Jaleel Gomez MD R1 Jul 30, 2017 11:46 Rhonda Leblanc MD Jul 31, 2017 16:25
[2017-07-30] MEDS ORDERED: ASPIRIN 325 MG TAB PO SCH (12:00)
--- NOTE | 2017-07-30 12:38 | EKG ---
Date Performed: 07/30/2017 Time Performed: 09:54:07 PTAGE: 62 years EKG: Left axis deviation Diffuse T-wave change anterolaterally Borderline atrial abnormality Sin ce previous tracing, no significant change noted ABNORMAL ECG PREVIOUS TRACING : 07/23/2017 23.06.53 DOCTOR: Vishal Webb Interpretating Date/Time 07/31/2017 06:39:33
[2017-07-30 12:57] VITALS: BP 182/93; PULSE 75; RESP 18; TEMP 98.4; O2SAT 94
[2017-07-30] MEDS ORDERED: LORazepam 2 MG/ML VIAL IV PUSH PRN ×4 (13:00)
[2017-07-30] MEDS ORDERED: LORazepam 2 MG TAB PO PRN (13:00)
[2017-07-30] MEDS ORDERED: hydrALAZINE HCL 20 MG/ML VIAL IV PUSH PRN (13:00)
[2017-07-30] MEDS ORDERED: LORazepam 1 MG TAB PO PRN (13:00)
[2017-07-30] MEDS ORDERED: FLUMAZENIL 0.5 MG/5 ML VIAL IV PUSH PRN (13:00)
[2017-07-30] MEDS: hydrALAZINE HCL 25 MG TAB PO SCH ×2 (13:46→20:53)
--- NOTE | 2017-07-30 14:33 | MB ---
cc: ZAHEER MEREDITH MD DATE OF CONSULTATION: 07/30/2017. REASON FOR CONSULTATION: "Dizziness and elevated troponin". HISTORY OF PRESENT ILLNESS: The patient is a pleasant 62-year-old gentleman originally seen by Dr. Malhotra in my group for coronary disease, and on May 30 he underwent bypass surgery with a AGUILAR to the LAD and vein graft to the circumflex marginal branch. The patient presents with dizziness. I spent a great deal of time trying to ascertain what the patient truly meant by dizziness and it seems that he feels unstable / unsteady. He says he can walk and loses balance and if he bends over the bed, he feels like he may fall out but he does not truly have pre-syncope or any actual syncopal episodes. He also denies chest pain and shortness of breath. PAST MEDICAL HISTORY: 1. Coronary artery disease as above. 2. Hypertension. 3. Hyperlipidemia. 4. Chronic kidney disease. 5. Tobacco abuse. 6. Apparent history of cocaine abuse. CURRENT MEDICATIONS: 1. Warfarin. 2. Lasix 40 milligrams daily. 3. 10 milligrams daily. 4. Protonix 40 milligrams daily. 5. Lipitor 80 milligrams at bedtime. 6. Lopressor 50 milligrams q. 12. 7. Remeron. 8. Flomax 0.4 milligrams q. 12. ALLERGIES: MORPHINE. PHYSICAL EXAMINATION: VITAL SIGNS: Afebrile, pulse 75, respiratory rate 18, blood pressure 182/93, satting 94%. GENERAL: In general, a pleasant -[place] gentleman in no distress. NECK: No jugular venous distention. LUNGS: Clear to auscultation bilaterally. CARDIOVASCULAR: Regular rate and rhythm. No murmurs appreciated. ABDOMEN: Benign. EXTREMITIES: No edema. LABORATORY DATA: INR is 1.4. Sodium 141, potassium 3.7, chloride 106, bicarb 29.2, BUN 23, creatinine 2.2, glucose 84. Troponin is 0.09, 0.09, 0.10. BNP is 208. CARDIOLOGY STUDIES: EKG shows sinus rhythm with anterolateral T-wave changes most likely due to left ventricular hypertrophy. Echocardiogram from July 25 shows normal systolic function, __5 to 6 with moderate left ventricular hypertrophy. IMPRESSION: 1. Dizziness: The patient's dizziness is very unclear but possibly due to a neurologic event given his significant hypertension and other stroke risk factors. I would have him undergo a CT of the head at minimum, and I will defer to the medical neurology team as to whether he requires an MRI. 2. Abnormal troponin: The patient's troponin is likely due to his hypertension but will have him undergo a nuclear stress test as well. Dr. Oh will be available tomorrow to assume care. Thank you again for the opportunity to participate in this patient's care. MD ROXI Hernandez/DECLAN /2:11 PM /2:22 PM
[2017-07-30 14:38] VITALS: PULSE 77
[2017-07-30 15:33] VITALS: BP_SYST 136; BP_SYST 147; BP_SYST 148; BP_DIAS 82; BP_DIAS 84; PULSE 68; RESP 18; TEMP 97.9; O2SAT 98
[2017-07-30 18:55] LABS: TROPONIN I 0.1 NG/ML (0.02-0.05)
[2017-07-30] MEDS: METOPROLOL TARTRATE 50 MG TAB PO SCH (20:53)
[2017-07-30] MEDS: TAMSULOSIN HCL 0.4 MG CAP PO SCH (20:53)
[2017-07-30] MEDS: HEPARIN SODIUM - SQ 10,000 UNITS/ML VIAL SQ SCH (20:53)
[2017-07-30] MEDS ORDERED: MIRTAZAPINE 15 MG TAB PO SCH (21:00)
[2017-07-30] MEDS ORDERED: ATORVASTATIN 80 MG TAB PO SCH (21:00)
--- NOTE | 2017-07-30 21:01 | RADRPT ---
EXAM DATE/TIME: 07/30/2017 20:39 [facility] COMPARISON: CT BRAIN W/O CONTRAST, May 31, 2017, 16:31. INDICATIONS : Weakness. RADIATION DOSE: 52.13 CTDIvol (mGy) MEDICAL HISTORY : Cerebrovascular disease. Cardiovascular disease Hypertension. SURGICAL HISTORY : Appendectomy. Hernia repair ENCOUNTER: Initial ACUITY: 1 day PAIN SCALE: 0/10 LOCATION: cranial TECHNIQUE: Multiple contiguous axial images were obtained of the head. Using automated exposure control and adj ustment of the mA and/or kV according to patient size, radiation dose was kept as low as reasonably a chievable to obtain optimal diagnostic quality images. DICOM format image data is available electro nically for review and comparison. FINDINGS: There is no evidence for intracranial hemorrhage, mass effect, mass lesions, edema, or extra-axial fl uid collections. The visualized bony structures appear intact. The ventricles are normal size for t he patient's age. There are no signs of acute infarction for technique. There is old infarction in t he right frontal lobe not changed. There is mild mucoperiosteal thickening within the left maxillary sinus and a small mucus retention cyst. CONCLUSION: Old infarction on the right without evidence of acute hemorrhage or mass effect. Marine Nayak MD on July 30, 2017 at 20:57 Board Certified Radiologist. This report was verified electronically.
[2017-07-30 21:06] VITALS: BP 174/100; PULSE 75; RESP 16; TEMP 98.5; O2SAT 99
[2017-07-30 23:23] LABS: BILIRUBIN, URINE NEG (NEG); BLOOD, URINE NEG (NEG); GLUCOSE,URINE NEG (NEG); KETONE, URINE NEG (NEG); MUCUS URINE FEW /lpf (OCC); NITRITE,URINE NEG (NEG); PH, URINE 5.5 (5.0-8.5); SQUAMOUS EPITHELIAL CELL URINE <1 /hpf (0-5); URINE COLOR YELLOW (YELLW/STRAW); URINE LEUKOCYTE ESTERASE NEG (NEG)
[2017-07-31] VITALS (8 sets, daily range): BP systolic 133–178; BP diastolic 75–99; PULSE 65–79; RESP 16–18; TEMP 97.9–98.7; O2SAT 95–98
[2017-07-31 04:37] LABS: AUTOMATED NEUTROPHIL # 1.9 TH/MM3 (1.8-7.7); BASOPHIL % 0.6 % (0.0-2.0); EOSINOPHIL # 0.2 TH/MM3 (0-0.4); EOSINOPHIL % 4.5 % (0.0-4.0); HEMATOCRIT 34.3 % (39.0-51.0); HEMOGLOBIN 11.2 GM/DL (13.0-17.0); LYMPH % 45.9 % (9.0-44.0); LYMPHOCYTE # 2.2 TH/MM3 (1.0-4.8); MEAN CELL VOLUME 81.9 FL (80.0-100.0); MEAN CORPUSCULAR HEMOGLOBIN 26.9 PG (27.0-34.0); MEAN CORPUSCULAR HGB CONC 32.8 % (32.0-36.0); MEAN PLATELET VOLUME 6.7 FL (7.0-11.0); MONO % 9.3 % (0.0-8.0); MONOCYTE # 0.4 TH/MM3 (0-0.9); NEUT % 39.7 % (16.0-70.0); PLATELET COUNT 246 TH/MM3 (150-450); RED BLOOD COUNT 4.18 MIL/MM3 (4.50-5.90); RED CELL DISTRIBUTION WIDTH 17.2 % (11.6-17.2); WHITE BLOOD COUNT 4.8 TH/MM3 (4.0-11.0)
[2017-07-31 04:44] LABS: INTERNATIONAL NORMALIZED RATIO 1.4 RATIO; PROTHROMBIN TIME - PATIENT 13.8 SEC (9.8-11.6)
[2017-07-31 04:55] LABS: ALBUMIN 2.8 GM/DL (3.4-5.0); AST (GOT) 23 U/L (15-37); BICARBONATE 29.1 MEQ/L (21.0-32.0); BLOOD UREA NITROGEN 25 MG/DL (7-18); CALCIUM 8.8 MG/DL (8.5-10.1); CHLORIDE 106 MEQ/L (98-107); CREATININE 2.07 MG/DL (0.60-1.30); GLOMERULAR FILTRATION RATE 39 ML/MIN (>89); GLUCOSE,RANDOM 85 MG/DL (74-106); SODIUM (NA) 142 MEQ/L (136-145)
[2017-07-31 04:56] LABS: ALT (GPT) 16 U/L (12-78)
[2017-07-31 04:58] LABS: ALKALINE PHOSPHATASE 99 U/L (45-117); TOTAL BILIRUBIN ADULT 0.3 MG/DL (0.2-1.0); TOTAL PROTEIN 7.4 GM/DL (6.4-8.2)
[2017-07-31] MEDS ORDERED: PANTOPRAZOLE SOD 40 MG DELAYED RELEASE TAB PO SCH (06:00)
[2017-07-31] MEDS: hydrALAZINE HCL 25 MG TAB PO SCH ×2 (06:18→15:33)
[2017-07-31] MEDS: HEPARIN SODIUM - SQ 10,000 UNITS/ML VIAL SQ SCH ×2 (06:19→15:34)
[2017-07-31 08:54] LABS: AUTOMATED NEUTROPHIL # 2.8 TH/MM3 (1.8-7.7); BASOPHIL % 0.8 % (0.0-2.0); EOSINOPHIL # 0.3 TH/MM3 (0-0.4); EOSINOPHIL % 4.9 % (0.0-4.0); HEMATOCRIT 32.7 % (39.0-51.0); LYMPH % 39.5 % (9.0-44.0); LYMPHOCYTE # 2.4 TH/MM3 (1.0-4.8); MEAN CELL VOLUME 81.3 FL (80.0-100.0); MEAN CORPUSCULAR HEMOGLOBIN 27.3 PG (27.0-34.0); MEAN CORPUSCULAR HGB CONC 33.6 % (32.0-36.0); MEAN PLATELET VOLUME 6.8 FL (7.0-11.0); MONO % 9.3 % (0.0-8.0); MONOCYTE # 0.6 TH/MM3 (0-0.9); NEUT % 45.5 % (16.0-70.0); PLATELET COUNT 225 TH/MM3 (150-450); RED BLOOD COUNT 4.02 MIL/MM3 (4.50-5.90); RED CELL DISTRIBUTION WIDTH 17.1 % (11.6-17.2); WHITE BLOOD COUNT 6.1 TH/MM3 (4.0-11.0)
[2017-07-31] MEDS ORDERED: PRASUGREL 10 MG TAB PO SCH (09:00)
[2017-07-31] MEDS ORDERED: FUROSEMIDE 40 MG TAB PO SCH (09:00)
[2017-07-31 09:20] LABS: BICARBONATE 28.2 MEQ/L (21.0-32.0); CALCIUM 8.7 MG/DL (8.5-10.1); CREATININE 2.04 MG/DL (0.60-1.30)
[2017-07-31 09:25] LABS: FREE T4 0.85 NG/DL (0.76-1.46)
[2017-07-31] MEDS ORDERED: REGADENOSON INJ 0.4 MG/5 ML SYR ONE (10:13)
[2017-07-31] MEDS ORDERED: LACTULOSE SYRUP 20 GM/30 ML CUP PO SCH (10:45)
[2017-07-31] MEDS: METOPROLOL TARTRATE 50 MG TAB PO SCH (11:05)
[2017-07-31] MEDS: TAMSULOSIN HCL 0.4 MG CAP PO SCH (11:06)
--- NOTE | 2017-07-31 11:07 | RADRPT ---
EXAM DATE/TIME: 07/31/2017 10:53 [facility] COMPARISON: CHEST SINGLE AP, July 30, 2017, 9:22. INDICATIONS : Cough. MEDICAL HISTORY : Congestive heart failure. SURGICAL HISTORY : CABG. ENCOUNTER: Subsequent ACUITY: 1 day PAIN SCORE: 2/10 LOCATION: Bilateral chest FINDINGS: Median sternotomy wires are noted status post cardiac surgery. The heart is mildly prominent. The pul monary vascular pattern is normal. Discoid atelectasis and/or scarring is noted within the right lung base. Tiny right pleural effusion is stable. Degenerative changes are noted throughout the thoracic spine. CONCLUSION: 1. Discoid atelectasis and/or scarring within the right lung base. 2. Tiny right pleural effusion. 3. Degenerative changes throughout the thoracic spine. Kodak Reardon MD on July 31, 2017 at 11:02 Board Certified Radiologist. This report was verified electronically.
--- NOTE | 2017-07-31 11:30 | RADRPT ---
EXAM DATE/TIME: 07/31/2017 09:32 [facility] COMPARISON: No previous studies available for comparison. INDICATIONS : Dizziness with elevated troponins. Coronary artery disease. DOSE: 26.6 mCi Tc99m Myoview at stress. 8.5 mCi Tc99m Myoview at rest. 0.4 mg Lexiscan STRESS SYMPTOMS: Dyspnea. EJECTION FRACTION: 51% MEDICAL HISTORY : Hypertension. SURGICAL HISTORY : CABG Coronary artery stent. Appendectomy. ENCOUNTER: Initial ACUITY: 2 days PAIN SCALE: 0/10 LOCATION: chest TECHNIQUE: The patient underwent pharmacologic stress with infusion of prescribed dose. Continuous ECG tracing was monitored during stress. Gated SPECT imaging was performed after stress and conventional SPECT i maging was performed at rest. The examination was performed on a SPECT/CT scanner, both attenuation and non-corrected datasets were reviewed. FINDINGS: DISTRIBUTION: The maximum perfused segment at stress is in the septal wall. PERFUSION STUDY: The pattern of perfusion at stress is within normal limits. GATED STUDY: There is intact wall motion and thickening without hypokinetic or dyskinetic segments. CONCLUSION: Normal examination. RISK CATEGORY: Low (<1% Annual Mortality Rate) Maikol Hui MD on July 31, 2017 at 11:25 Board Certified Radiologist. This report was verified electronically.
--- NOTE | 2017-07-31 15:59 | HHI.FPPN ---
Subjective Remarks No acute events overnight. Patient seen on rounds after he had cardiac stress test. He stated that he had no further episodes of dizziness overnight and overall feels better. Denies chest pain, shortness of breath, nausea or vomiting. (Jaleel Gomez MD R1) Objective Vitals Vital Signs Date Time Temp Pulse Resp B/P (MAP) Pulse Ox O2 Delivery O2 Flow Rate FiO2 07/31/17 10:59 97.9 74 16 172/99 (123) 96 07/31/17 07:22 98.7 79 18 149/86 (107) 95 07/31/17 04:00 65 07/31/17 03:53 98.5 65 16 133/75 (94) 98 07/31/17 00:57 98.4 71 17 137/78 (97) 95 07/30/17 21:06 98.5 75 16 174/100 (124) 99 07/30/17 15:33 97.9 68 18 148/82 (104) 98 136/82 (100) 147/84 (105) (Jaleel Gomez MD R1) Result Diagram: 07/31/17 0838 07/31/17 0838 Objective Remarks GENERAL: Well-nourished, well-developed patient sitting in chair upright and in no acute distress SKIN: Warm and dry. No rash. EYES: No scleral icterus. No injection or drainage. PERRLA. EOMI. HENT: Normocephalic. Atraumatic. MMM. NECK: No visible JVD or lymphadenopathy. CARDIOVASCULAR: Warm and well perfused. Regular rate and rhythm with no murmurs appreciated. RESPIRATORY: Normal respiratory effort. Clear to auscultation bilaterally GASTROINTESTINAL: Abdomen soft, nontender and nondistended. MUSCULOSKELETAL: Strength grossly WNL. BACK: Without obvious deformity. NEURO/PSYCH: Afocal. Awake, alert, and oriented x3. (Jaleel Gomez MD R1) A/P Assessment and Plan 62-year-old male with history of hypertension, hyperlipidemia, new onset CHF diagnosed 1 week prior, CKD, CAD status post CABG and 2 stent placements in May/2017 presenting to the ED with dizziness, malaise and shortness of breath. Admitted to observation after found to have mildly elevated troponins at 0.10. Cardiology consulted and performed myocardial perfusion scan on 07/31 which was benign. ACS workup negative, troponins were stable. Syncope workup negative. Discharge Planning Likely discharged today (Jaleel Gomez MD R1) Attending Attestation Patient seen, examined, and discussed with resident team. I agree with assessment and management as documented and discussed with me. Pt seen after stress test. His symptoms have resolved. Discussed importance of following a healthy diet. (Rhonda Leblanc MD) Problem List: (1) Pre-syncope ICD Codes: R55 - Syncope and collapse Plan: Patient admitted with 1 day history of dizziness, shortness of breath, lightheadedness Cardiology consulted - appreciate recommendations Presyncope workup as follows ACS rule out with EKG, trending troponins which were stable Carotid artery ultrasound showed moderate plaque, no hemodynamically significant stenosis Patient had echocardiogram 1 week ago showing LVH with preserved ejection fraction of 55-60% - will not repeat at this time Nuclear stress test was negative CT brain without contrast showed signs of old infarct without evidence of acute hemorrhage or mass effect UA, UDS negative Orthostatic blood pressure were normal Ammonia elevated at 40, giving lactulose 2 TSH significantly elevated at 48, free T4 was within normal limits. Will repeat TSH as outpatient Bedside glucose was 119 Patient has history of alcohol, substance abuse. States he has not used drugs in 10 years, alcohol over the last 6 months CIWA protocol was 0 (2) Elevated troponin I level ICD Codes: R74.8 - Abnormal levels of other serum enzymes Plan: Initial troponin 0.10 my repeat was 0.10 No change from recent hospitalization See presyncope workup as above (3) Shortness of breath ICD Codes: R06.02 - Shortness of breath Status: Acute Plan: Patient presenting with shortness of breath on exertion, cough with occasional sputum production, fever/sweats on morning of admission Improved today Chest x-ray on admission showing right basilar atelectasis, cardiomegaly Patient appearing fluid overloaded on admission, improved today BNP elevated at 208 on admission, improved to 192 Continue Lasix 40 mg daily Follow-up cardiac, presyncopal workup as above (4) CHF (congestive heart failure) ICD Codes: I50.9 - Heart failure, unspecified Plan: Patient diagnosed with acute onset CHF at previous hospitalization on Echo at that time showing ejection fraction 55-60%, LVH Appearing fluid overloaded on on admission, improved today Cardiology consulted, appreciated recommendations Continue Lasix 40 mg daily Consulting nutrition to educate patient on dietary changes needed (5) CKD (chronic kidney disease) ICD Codes: N18.9 - Chronic kidney disease, unspecified Plan: Creatinine elevated at 2.20 on admission, improved to 2.04 on 07/31 This appears to be chronic as recent hospitalizations of all had creatinines elevated over 2 and as high as 2.71 Avoid nephrotoxic agents Avoiding IV fluids at this time as patient is expressing shortness of breath, possible fluid overload Follow-up a.m. labs (6) HTN (hypertension) ICD Codes: I10 - Essential (primary) hypertension Status: Chronic Plan: Patient has history of hypertension Blood pressure is elevated on admission and 170 systolic over 90s diastolic Metoprolol tartrate 50 mg by mouth twice a day Continuing home hydralazine 25 mg by mouth 3 times a day Adding hydralazine 10 mg IV push every 6 hours as needed for systolic pressures greater than 170, diastolic over 100 Blood pressures continue to be occasionally elevated to the 170s systolic Starting Norvasc 10 mg daily (7) FEN Plan: No IV fluids at this time Electrolytes within normal limits, will replace as needed Heart healthy diet DVT prophylaxis: Discontinuing warfarin, heparin 3 times a day (Jaleel Gomez MD R1) Jaleel Gomez MD R1 Jul 31, 2017 15:59 Rhonda Leblanc MD Jul 31, 2017 16:51
[2017-07-31] MEDS ORDERED: WARFARIN SOD 5 MG TAB PO SCH (16:00)
[2017-07-31] MEDS ORDERED: AMLO10 PO (16:04)
--- NOTE | 2017-07-31 16:05 | HHI.DCPOC ---
Discharge Care Plan Diagnosis: (1) CHF (congestive heart failure) (2) Pre-syncope (3) Elevated TSH (4) Shortness of breath Goals to Promote Your Health * To prevent worsening of your condition and complications * To maintain your health at the optimal level Directions to Meet Your Goals Take your medications as prescribed Follow your dietary instruction Follow activity as directed Keep your appointments as scheduled Take your immunizations and boosters as scheduled If your symptoms worsen call your PCP, if no PCP go to Urgent Care Center or Emergency Room Smoking is Dangerous to Your Health. Avoid second hand smoke Call the 24-hour hour crisis hotline for domestic abuse at Jaleel Gomez MD R1 Jul 31, 2017 16:05
== END 2017-07-31 17:31 | disposition home or self-care (01) ==
LOC: NEPC 08:40 → NEDA 10:58 → NEPFCDU 12:49
PROVIDERS: ADMIT Family Medicine; ATTEND Family Medicine
DX: R55 Syncope and collapse (principal); R42 Dizziness and giddiness; R06.02 Shortness of breath; R74.8 Abnormal levels of other serum enzymes; J98.11 Atelectasis; I13.0 Hypertensive heart and chronic kidney disease with heart failure and stage 1 through stage 4 chronic kidney disease, or unspecified chronic kidney disease; I50.9 Heart failure, unspecified; N18.9 Chronic kidney disease, unspecified; R26.81 Unsteadiness on feet; R53.81 Other malaise; R61 Generalized hyperhidrosis; R60.0 Localized edema; E78.5 Hyperlipidemia, unspecified; I25.10 Atherosclerotic heart disease of native coronary artery without angina pectoris; I51.7 Cardiomegaly; R94.31 Abnormal electrocardiogram [ECG] [EKG]; D63.8 Anemia in other chronic diseases classified elsewhere; F41.9 Anxiety disorder, unspecified; F32.9 Major depressive disorder, single episode, unspecified; F17.200 Nicotine dependence, unspecified, uncomplicated; Z95.5 Presence of coronary angioplasty implant and graft; Z79.899 Other long term (current) drug therapy; Z79.01 Long term (current) use of anticoagulants
CPT/HCPCS: 70450; 71045; 71046; 78452; 80048; 80053; 80307; 81001; 82140; 82550; 82948; 83735; 83880; 84439; 84443; 84484; 85025; 85610; 85730; 93005; 93017; 96372; 99285; A9502; G0378; J1644; J2785

== ENCOUNTER 2017-12-12 19:05 | Emergency (ER) | payer OTHER ==
[~2017-12-12] VITALS: Ht 165.1 cm; Wt 95.5 kg
[~2017-12-12 19:05] MED LIST changes: +AMLO10 PO; -CITA20TA4 PO; -COUM5TAB PO; -DOCU1CAP39 PO; +PRAS10TA PO; -THERM PO; -TYLE325T PO
[2017-12-12 19:36] VITALS: BP 118/69; PULSE 65; RESP 19; TEMP 97.9; O2SAT 99
[2017-12-12] MEDS ORDERED: SODIUM CHLORIDE 0.9% FLUSH 10 ML FLUSH IVF PRN (20:30)
--- NOTE | 2017-12-12 20:37 | PD ---
HPI Chief Complaint: Dizziness Time Seen by Provider: 20:15 Travel History International Travel<30 days: No Contact w/Intl Traveler<30days: No Traveled to known affect area: No History of Present Illness HPI 62-year-old man presents to the emergency department complaining of feeling "overheated". States he has been feeling bad off and on for the past 3 days or so. He states today he felt a little bit worse. He describes an episode when he was riding the bus where he felt like his vision was blacking out a little bit. This is bilateral. He has not really had it before. [place] a little bit unwell and unsteady later today to. He felt a little bit "wobbly". No focal neurologic symptoms. No numbness tingling or ran out of all of his medications about a week ago. He states he picked him up today. He does not have a primary physician. He is a recent diagnosis of CAD with a CABG back in May , recent diagnosis of CHF, reported history of cocaine use in the remote past. Otherwise had been feeling generally well and healthy before this. No other complaints. History Past Medical History Narrative Medical Hypertension Hyperlipidemia CKD CAD, status post CABG May 2017 CHF Ongoing tobacco use History of cocaine use Social History Alcohol Use: Yes (OCC) Tobacco Use: No (1 PPD) Allergies-Medications (Allergen,Severity, Reaction): Coded Allergies: morphine (Verified Adverse Reaction, Intermediate, Confusion, 07/24/17) Reported Meds & Prescriptions Reported Meds & Active Scripts Active Norvasc (Amlodipine Besylate) 10 Mg Tab 10 Mg PO DAILY Lasix (Furosemide) 40 Mg Tab 40 Mg PO DAILY Pantoprazole (Pantoprazole Sodium) 40 Mg Tab 40 Mg PO DAILY@06 Mirtazapine 15 Mg Tab 15 Mg PO HS Px Aspirin (Aspirin) 325 Mg Tab 81 Mg PO DAILY Lopressor (Metoprolol Tartrate) 50 Mg Tab 50 Mg PO Q12HR Hydralazine HCl 25 Mg Tablet 25 Mg PO Q8HR Atorvastatin (Atorvastatin Calcium) 40 Mg Tab 80 Mg PO HS Flomax (Tamsulosin HCl) 0.4 Mg Cap 0.4 Mg PO Q12HR Reported Effient (Prasugrel) 10 Mg Tab 10 Mg PO DAILY Review of Systems Except as stated in HPI: all other systems reviewed are Neg Physical Exam Narrative GENERAL: Well-appearing 62-year-old man, no acute distress. SKIN: Focused skin assessment warm/dry. HEAD: Atraumatic. Normocephalic. EYES: Pupils equal and round. No scleral icterus. No injection or drainage. ENT: No nasal bleeding or discharge. Mucous membranes pink and moist. NECK: Trachea midline. No JVD. CARDIOVASCULAR: Regular rate and rhythm. No murmur appreciated. RESPIRATORY: No accessory muscle use. Clear to auscultation. Breath sounds equal bilaterally. GASTROINTESTINAL: Abdomen soft, non-tender, nondistended. Hepatic and splenic margins not palpable. MUSCULOSKELETAL: No obvious deformities. No clubbing. No cyanosis. No edema. NEUROLOGICAL: Awake and alert. No obvious cranial nerve deficits. No facial asymmetry. Motor grossly within normal limits. Normal finger to nose. Normal gait. No instability. Normal speech. PSYCHIATRIC: Appropriate mood and affect; insight and judgment normal. Data Data Last Documented VS Vital Signs Date Time Temp Pulse Resp B/P (MAP) Pulse Ox O2 Delivery O2 Flow Rate FiO2 12/12/17 20:41 100 Room Air 12/12/17 19:36 97.9 65 19 118/69 (85) Orders Orders Electrocardiogram (12/12/17 20:28) Complete Blood Count With Diff (12/12/17 20:28) Comprehensive Metabolic Panel (12/12/17 20:28) Ecg Monitoring (12/12/17 20:28) Iv Access Insert/Monitor (12/12/17 20:28) Oximetry (12/12/17 20:28) Oxygen Administration (12/12/17 20:28) Sodium Chloride 0.9% Flush (Ns Flush) (12/12/17 20:30) Chest, Pa & Lat (12/12/17 20:28) Ed Discharge Order (12/12/17 22:46) Labs Laboratory Tests Test 12/12/17 20:38 White Blood Count 5.8 TH/MM3 Red Blood Count 4.74 MIL/MM3 Hemoglobin 12.6 GM/DL Hematocrit 37.7 % Mean Corpuscular Volume 79.6 FL Mean Corpuscular Hemoglobin 26.6 PG Mean Corpuscular Hemoglobin Concent 33.3 % Red Cell Distribution Width 18.2 % Platelet Count 195 TH/MM3 Mean Platelet Volume 7.5 FL Neutrophils (%) (Auto) 26.6 % Lymphocytes (%) (Auto) 57.6 % Monocytes (%) (Auto) 11.2 % Eosinophils (%) (Auto) 3.3 % Basophils (%) (Auto) 1.3 % Neutrophils # (Auto) 1.5 TH/MM3 Lymphocytes # (Auto) 3.3 TH/MM3 Monocytes # (Auto) 0.6 TH/MM3 Eosinophils # (Auto) 0.2 TH/MM3 Basophils # (Auto) 0.1 TH/MM3 CBC Comment DIFF FINAL Differential Comment Blood Urea Nitrogen 39 MG/DL Creatinine 3.44 MG/DL Random Glucose 91 MG/DL Total Protein 7.9 GM/DL Albumin 3.3 GM/DL Calcium Level 8.2 MG/DL Alkaline Phosphatase 96 U/L Aspartate Amino Transf (AST/SGOT) 30 U/L Total Bilirubin 0.4 MG/DL Sodium Level 140 MEQ/L Potassium Level 4.3 MEQ/L Chloride Level 106 MEQ/L Carbon Dioxide Level 25.6 MEQ/L Anion Gap 8 MEQ/L Estimat Glomerular Filtration Rate 22 ML/MIN [facility] Medical Decision Making Medical Screen Exam Complete: Yes Emergency Medical Condition: Yes Interpretation(s) My review of EKG: Normal sinus rhythm at a rate 62, leftward axis, normal intervals, lateral T-wave inversions and ST changes, no change from her 2 previous EKGs, including July 30, 2017. Differential Diagnosis Elevated blood pressure, other medications, volume overload, TIA or amaurosis, Narrative Course Medical decision making. This 62-year-old man presents to the emergency department complaining of physical bit unwell past couple days. We are episode of vision changes that was very transient affected both eyes, and feeling a bit unsteady. Pretty unremarkable neurologic exam. Is a normal gait now. He feels much improved now. He is out of all his medications according his water pill and his blood pressure medicines for the past week although he picked them up today. Blood pressure may been elevated earlier today. Will check EKG, x- ray, basic labs. Diagnosis Primary Impression: Dizziness Additional Impression: Chronic kidney disease Additional Instructions: Continue current medications. Follow-up with your primary physician for repeat evaluation. Return the emergency part for any worsening chest pain, vision changes, weakness , fainting, or any other new or worsening symptoms. Med/Other Pt SpecificInfo: No Change to Meds Disposition: 01 DISCHARGE HOME Condition: Stable Marcell Miller MD Dec 12, 2017 20:36
[2017-12-12 20:41] VITALS: O2SAT 100
[2017-12-12 20:49] LABS: AUTOMATED NEUTROPHIL # 1.5 TH/MM3 (1.8-7.7); BASOPHIL # 0.1 TH/MM3 (0-0.2); BASOPHIL % 1.3 % (0.0-2.0); EOSINOPHIL # 0.2 TH/MM3 (0-0.4); EOSINOPHIL % 3.3 % (0.0-4.0); HEMATOCRIT 37.7 % (39.0-51.0); HEMOGLOBIN 12.6 GM/DL (13.0-17.0); LYMPH % 57.6 % (9.0-44.0); LYMPHOCYTE # 3.3 TH/MM3 (1.0-4.8); MEAN CELL VOLUME 79.6 FL (80.0-100.0); MEAN CORPUSCULAR HEMOGLOBIN 26.6 PG (27.0-34.0); MEAN CORPUSCULAR HGB CONC 33.3 % (32.0-36.0); MEAN PLATELET VOLUME 7.5 FL (7.0-11.0); MONO % 11.2 % (0.0-8.0); MONOCYTE # 0.6 TH/MM3 (0-0.9); NEUT % 26.6 % (16.0-70.0); PLATELET COUNT 195 TH/MM3 (150-450); RED BLOOD COUNT 4.74 MIL/MM3 (4.50-5.90); RED CELL DISTRIBUTION WIDTH 18.2 % (11.6-17.2); WHITE BLOOD COUNT 5.8 TH/MM3 (4.0-11.0)
--- NOTE | 2017-12-12 21:18 | RADRPT ---
EXAM DATE: 12/12/2017 9:15 PM EDT AGE/SEX: 62 years / Male INDICATIONS: Short of breath. CLINICAL DATA: This is the patient's initial encounter. Patient reports that signs and symptoms have been present for 1 day and indicates a pain score of 0/10. MEDICAL/SURGICAL HISTORY: Congestive heart failure. CABG. COMPARISON: [facility] – [place], CHEST PA & LAT, 07/31/2017. . FINDINGS: Persistent mild diffuse interstitial prominence. Discoid atelectasis/scarring at the right lung base. No new focal pleural or parenchymal opacities. Stable median sternotomy wires. Heart and mediastinal contours are stable. Bony thorax is intact. CONCLUSION: 1. No acute abnormality or significant interval change. Electronically signed by: Mil Vences MD 12/12/2017 9:17 PM EDT
[2017-12-12 21:53] LABS: ALKALINE PHOSPHATASE 96 U/L (45-117); TOTAL BILIRUBIN ADULT 0.4 MG/DL (0.2-1.0); TOTAL PROTEIN 7.9 GM/DL (6.4-8.2)
[2017-12-12 21:57] LABS: ALBUMIN 3.3 GM/DL (3.4-5.0); AST (GOT) 30 U/L (15-37); BICARBONATE 25.6 MEQ/L (21.0-32.0); BLOOD UREA NITROGEN 39 MG/DL (7-18); CALCIUM 8.2 MG/DL (8.5-10.1); CHLORIDE 106 MEQ/L (98-107); CREATININE 3.44 MG/DL (0.60-1.30); GLOMERULAR FILTRATION RATE 22 ML/MIN (>89); GLUCOSE,RANDOM 91 MG/DL (74-106); SODIUM (NA) 140 MEQ/L (136-145)
[2017-12-12 22:58] VITALS: BP 159/85
[2017-12-12 23:05] LABS: ALT (GPT) 97 U/L (12-78)
--- NOTE | 2017-12-13 13:57 | EKG ---
Date Performed: 12/12/2017 Time Performed: 20:52:13 PTAGE: 62 years EKG: Sinus rhythm POSSIBLE LEFT ATRIAL ENLARGEMENT ST DEVIATION AND MODERATE T-WAVE ABNORMALITY, CONSIDER LATERAL ISCH EMIA ABNORMAL ECG PREVIOUS TRACING : 07/30/2017 09.54 DOCTOR: Marcell Covington Interpretating Date/Time 12/13/2017 13:55:05
== END 2017-12-12 23:04 | disposition home or self-care (01) ==
LOC: NEPD 19:05
DX: R42 Dizziness and giddiness (principal); I13.0 Hypertensive heart and chronic kidney disease with heart failure and stage 1 through stage 4 chronic kidney disease, or unspecified chronic kidney disease; N18.9 Chronic kidney disease, unspecified; I50.9 Heart failure, unspecified; R94.31 Abnormal electrocardiogram [ECG] [EKG]; I25.10 Atherosclerotic heart disease of native coronary artery without angina pectoris; E78.5 Hyperlipidemia, unspecified; F17.200 Nicotine dependence, unspecified, uncomplicated; Z88.5 Allergy status to narcotic agent; Z79.82 Long term (current) use of aspirin; Z79.899 Other long term (current) drug therapy
CPT/HCPCS: 71046; 80053; 85025; 93005

== ENCOUNTER 2018-06-12 18:19 | Observation (INO) ==
[2018-06-12 19:18] LABS: Baso # (Auto) 0.1 th/mm3 (0.0-0.2); Baso % (Auto) 0.6 % (0.0-2.0); Eos # (Auto) 0.2 th/mm3 (0.0-0.4); Hematocrit 27.3 % (39.0-51.0); Hemoglobin 8.9 gm/dL (13.0-17.0); Lymph # (Auto) 3.2 th/mm3 (1.0-4.8); Mean Corpuscular HGB Conc 32.7 % (32.0-36.0); Mean Corpuscular Hemoglobin 26.9 pg (27.0-34.0); Mean Corpuscular Volume 82.2 fL (80.0-100.0); Mean Platelet Volume 6.6 fL (7.0-11.0); Mono # (Auto) 1.2 th/mm3 (0.0-0.9); Mono % (Auto) 13.5 % (0.0-8.0); Neut # (Auto) 4.5 th/mm3 (1.8-7.7); Neut % (Auto) 48.9 % (16.0-70.0); Platelet Count 281 th/mm3 (150-450); Red Blood Count 3.32 mil/mm3 (4.50-5.90); Red Cell Distribution Width 17.4 % (11.6-17.2); White Blood Count 9.1 th/mm3 (4.0-11.0)
--- NOTE | 2018-06-12 19:18 | ED ---
HPI General Chief complaint: Chest Pain Stated complaint: Chest Pain Time Seen by Provider: 06/12/18 19:07 Source: patient Limitations: no limitations History of Present Illness HPI narrative: The patient is a 63 year old male who presents to the [facility] emergency department with a history of reportedly moving back from the [place] area yesterday. He reports that since arriving in the area he has been under increased stress related to family difficulties. He reports that yesterday he began to have chest pain in the center and left side of his chest associated with shortness he reports that he has a history of coronary artery disease status post myocardial infarction sometime in the last year. The patient has difficulty recalling most of his medical history, however he does report that he was admitted to [facility] in [place] recently and discharged a few days ago. He reports that he has not gotten the prescriptions filled that he was provided at discharge. He believes that he was admitted related to a virus. He reports that he has had a cough and congestion for the last 3 weeks. He reports that at times it is productive of yellow sputum. The patient is unsure whether he has any prior history of COPD, however he does smoke one half a pack of cigarettes per day. The patient is unsure whether he has any prior history of congestive heart failure. He reports that he has had a cardiac catheterization with stent placed previously. On review of systems otherwise, the patient denies having any known recent fevers, neck pain, abdominal pain, vomiting, diarrhea, urinary symptoms, or neurologic symptoms. The patient's records from [facility] were reviewed and the patient was diagnosed with hypertensive urgency, flash pulmonary edema, some sort of infectious process discharged home with a prescription for clarithromycin. The patient also according to the record has a history of cocaine use. He reports that he last used cocaine 1-2 weeks ago. Related Data Home Medications Medication Instructions Recorded Confirmed amlodipine 10 mg PO DAILY 06/12/18 06/12/18 aspirin [Aspir-Low] 81 mg PO DAILY 06/12/18 06/12/18 atenolol 50 mg PO DAILY 06/12/18 06/12/18 atorvastatin 40 mg PO DAILY 06/12/18 06/12/18 benzocaine-menthol 1 misty MUCOUS MEMBRANE Q2-4H PRN 06/12/18 06/12/18 furosemide 40 mg PO DAILY 06/12/18 06/12/18 gabapentin 100 mg PO BID 06/12/18 06/12/18 hydralazine 50 mg PO TID 06/12/18 06/12/18 loratadine 10 mg PO DAILY 06/12/18 06/12/18 tamsulosin 0.4 mg PO DAILY 06/12/18 06/12/18 warfarin 5 mg PO DAILY 06/12/18 06/12/18 Allergies Allergy/AdvReac Type Severity Reaction Status Date / Time morphine AdvReac Intermediate Confusion Verified 07/24/17 00:01 Review of Systems ROS: all other systems reviewed are negative [facility] Medical History Medical History Illicit drug use (Acute) Myocardial infarct (Acute) Surgical History Surgical History H/O hernia repair (Acute) Previous back surgery (Acute) H/O heart artery stent (Acute) Social History Social History Substance History: Active Abuse Smoking Status: Current every day smoker Tobacco Type: Cigarettes Packs Per Day: 0.5 Cigarettes Per Day: 10.0 How Often Do You Have a Drink Containing Alcohol: 2 to 4 times a month Recent Travel in [facility] within the Last 8 Weeks: No Recent Out of Country Travel within the Last 8 Weeks: No Substance Abuse Detail Crack/Cocaine: Substance Use Status: Active Immunization History Tetanus Immunization: Unsure Exam Const General: cooperative, no acute distress and well developed Nutritional Appearance: well nourished Orientation: alert, awake and oriented x3 HENMT Head: normocephalic and atraumatic Nose: no nasal discharge and no epistaxis Mouth: moist mucous membranes Throat: posterior oropharynx normal and uvula midline Eyes Sclera: normal sclerae Pupils: PERRL Neck Neck: no meningeal signs, trachea midline and no JVD Resp Effort & Inspection: no use of accessory muscles Auscultation: no rales, rhonchi, no wheezes and other (Coarse breath sounds bilaterally, scattered rhonchi that clear with coughing, frequent dry cough noted on exam.) Cardio Rate: regular rate Rhythm: regular rhythm Heart Sounds: no gallops, no murmurs and no rubs GI Inspection: non-distended Palpation: soft, no hepatosplenomegaly, no guarding, not rigid and nontender Auscultation: normal bowel sounds Rectal Exam: visual inspection normal, No mass, No tenderness and other (There was not any significant stool in the rectal vault. Hemoccult testing was negative.) Back/Spine/Pelvis Back: no CVA tenderness Skin General: dry skin (warm) Neuro General: alert, awake, oriented x3 and other (Grossly nonfocal) Speech: speech normal Motor: no movement abnormalities noted Extrem General: normal to inspection (2+ pulses in all 4 extremities), no calf tenderness, no clubbing, no cyanosis and edema (Trace pedal edema bilaterally) Laterality: bilaterally Psych Mood: congruent mood Affect: normal affect Judgment: fair Course Initial Documented Vital Signs Temperature 98.6 F 06/12/18 18:35 Pulse Rate 98 H 06/12/18 18:35 Respiratory Rate 20 06/12/18 18:35 Blood Pressure 172/85 H 06/12/18 18:35 Pulse Oximetry 93 L 06/12/18 18:35 Last Documented Vital Signs Temperature 98.6 F 06/12/18 18:35 Pulse Rate 94 H 06/12/18 19:34 Respiratory Rate 18 06/12/18 19:34 Blood Pressure 167/87 H 06/12/18 19:34 Pulse Oximetry 99 06/12/18 19:34 Medical Decision Making [facility] Narrative Medical decision making narrative: During the course of the patient's emergency department visit, the patient's history, examination, and differential diagnosis were reviewed with the patient. The patient was placed on a rn cardiac with oximetry and frequent blood pressure monitoring. The patient had IV access obtained and blood work sent for analysis. A diagnostic evaluation was started regarding the patient's chest pain associated with shortness of breath in a patient with a history of coronary artery disease status post stent placement. The patient reports that he has been out of most of his medications. He denies taking any of his medications today. The patient also reports that he was recently admitted to the hospital a few days ago and has not gotten any of the prescriptions filled that were recommended at discharge. The patient was initially provided aspirin 324 mg p.o. x1, nitroglycerin sublingual every 5 minutes x3 as needed chest pain, nitroglycerin 1 inch to the chest wall. The patient's diagnostic studies are remarkable for a white count of 9.1, hemoglobin is 8.9, platelets are 281 with 13.5 monocytes. The patient's last hemoglobin at our facility was 12.6 on December 12, 2017. Hemoccult testing of the patient's stool will be done to assess for any evidence of bleeding. The patient's PT is 19.3, INR is 1.9, PTT 46.5. Chemistry is remarkable for a chloride of 108, BUN is 52, creatinine 3.98 in a patient with a history of renal insufficiency, GFR is 18, total protein is 8.3, BNP is 292, lipase within normal limits. Troponin I is 0.03, CPK within normal limits at 130. Chest x- ray shows a mildly prominent cardiac silhouette that is unchanged, no acute cardiopulmonary disease. From reviewing the electronic medical record in May 2017 the patient underwent a cardiac catheterization that revealed severe bifurcation lesion involving the left anterior descending and left circumflex artery, preserved left ventricular systolic function, elevated left ventricular end-diastolic pressure. Cardiothoracic surgery was consulted subsequent to this cardiac catheterization for CABG. the patient underwent 2 vessel coronary artery bypass grafting during that hospitalization. Hemoccult of the patient's stool was negative, however there was no stool present in the rectal vault, therefore this will need to be followed up. The patient's case including history, pertinent physical examination findings, and laboratory studies were discussed with Dr. Elam, the hospitalist on- call. I explained my concern about the patient's anemia she did agree that the patient would need a follow-up CBC in 2 days to reassess for progression of the anemia, however otherwise he felt that the patient was stable for admission to the chest pain center for rule out serial cardiac enzyme protocol. The patient will be provided an outpatient lab slip to repeat a CBC in 2 days. The patient's results were discussed with the patient, including the plan of care. I explained that further testing and/ or monitoring is indicated based on the patient's history, examination, and/ or laboratory findings. Therefore, I recommended admission for additional evaluation. The patient expressed understanding and was agreeable with this plan. The patient was admitted to the hospital in stable condition and sent to a bed under the care of the [facility]. Medical Screen Exam Complete: Yes Emergency Medical Condition: Yes Differential Diagnosis Differential Diagnosis: Congestive heart failure exacerbation, versus flash pulmonary edema, versus hypertensive emergency, versus acute coronary syndrome, versus pulmonary embolism Medical Records Medical records reviewed: Yes I reviewed the patient's medical records. Lab Data Lab results reviewed: Yes I reviewed the patient's lab results. Result diagrams: 06/12/18 18:55 06/12/18 18:55 Lab Results 12/06/12/18 06/12/18 Range/Units 18:55 18:55 18:55 WBC 9.1 (4.0-11.0) th/mm3 RBC 3.32 L (4.50-5.90) mil/mm3 Hgb 8.9 L (13.0-17.0) gm/dL Hct 27.3 L (39.0-51.0) % MCV 82.2 (80.0-100.0) fL MCH 26.9 L (27.0-34.0) pg MCHC 32.7 (32.0-36.0) % RDW 17.4 H (11.6-17.2) % Plt Count 281 (150-450) th/mm3 MPV 6.6 L (7.0-11.0) fL Neut % (Auto) 48.9 (16.0-70.0) % Lymph % (Auto) 35.0 (9.0-44.0) % [place] % (Auto) 13.5 H (0.0-8.0) % Eos % (Auto) 2.0 (0.0-4.0) % Baso % (Auto) 0.6 (0.0-2.0) % Neut # (Auto) 4.5 (1.8-7.7) th/mm3 Lymph # (Auto) 3.2 (1.0-4.8) th/mm3 York # (Auto) 1.2 H (0.0-0.9) th/mm3 Eos # (Auto) 0.2 (0.0-0.4) th/mm3 Baso # (Auto) 0.1 (0.0-0.2) th/mm3 WBC Differential . Differential Comment Auto diff final PT 19.3 H (9.8-11.6) sec INR 1.9 Ratio APTT 46.5 H (23.4-31.7) sec Sodium 139 (136-145) meq/L Potassium 4.1 (3.5-5.1) meq/L Chloride 108 H (98-107) meq/L Carbon Dioxide 22.1 (21.0-32.0) meq/L Anion Gap 9 (5-15) meq/L BUN 52 H (7-18) mg/dL Creatinine 3.98 H (0.60-1.30) mg/dL Estimated GFR 18 L (>89) mL/min Random Glucose 75 (74-106) mg/dL Calcium 8.5 (8.5-10.1) mg/dL Magnesium 2.2 (1.5-2.5) mg/dL Total Bilirubin 0.5 (0.2-1.0) mg/dL AST 31 (15-37) U/L ALT 22 (12-78) U/L Alkaline Phosphatase 81 (45-117) U/L Total Creatine Kinase 130 (39-308) U/L CK-MB (CK-2) 1.4 (0.5-3.6) ng/mL Troponin I 0.03 (0.02-0.05) ng/mL B-Natriuretic Peptide (0-100) pg/mL Total Protein 8.3 H (6.4-8.2) g/dL Albumin 2.9 L (3.4-5.0) g/dL Lipase 212 (73-393) U/L 18 Range/Units 18:55 WBC (4.0-11.0) th/mm3 RBC (4.50-5.90) mil/mm3 Hgb (13.0-17.0) gm/dL Hct (39.0-51.0) % MCV (80.0-100.0) fL MCH (27.0-34.0) pg MCHC (32.0-36.0) % RDW (11.6-17.2) % Plt Count (150-450) th/mm3 MPV (7.0-11.0) fL Neut % (Auto) (16.0-70.0) % Lymph % (Auto) (9.0-44.0) % York % (Auto) (0.0-8.0) % Eos % (Auto) (0.0-4.0) % Baso % (Auto) (0.0-2.0) % Neut # (Auto) (1.8-7.7) th/mm3 Lymph # (Auto) (1.0-4.8) th/mm3 York # (Auto) (0.0-0.9) th/mm3 Eos # (Auto) (0.0-0.4) th/mm3 Baso # (Auto) (0.0-0.2) th/mm3 WBC Differential Differential Comment PT (9.8-11.6) sec INR Ratio APTT (23.4-31.7) sec Sodium (136-145) meq/L Potassium (3.5-5.1) meq/L Chloride (98-107) meq/L Carbon Dioxide (21.0-32.0) meq/L Anion Gap (5-15) meq/L BUN (7-18) mg/dL Creatinine (0.60-1.30) mg/dL Estimated GFR (>89) mL/min Random Glucose (74-106) mg/dL Calcium (8.5-10.1) mg/dL Magnesium (1.5-2.5) mg/dL Total Bilirubin (0.2-1.0) mg/dL AST (15-37) U/L ALT (12-78) U/L Alkaline Phosphatase (45-117) U/L Total Creatine Kinase (39-308) U/L CK-MB (CK-2) (0.5-3.6) ng/mL Troponin I (0.02-0.05) ng/mL B-Natriuretic Peptide 292 H (0-100) pg/mL Total Protein (6.4-8.2) g/dL Albumin (3.4-5.0) g/dL Lipase (73-393) U/L Imaging Data Radiologist's impression: Chest X-Ray 06/12/18 19:07 CONCLUSION: Mildly prominent cardiac silhouette unchanged. No acute cardiopulmonary disease identified. ECG Data Attestation: I personally reviewed and interpreted this ECG as follows: Interpretation: The patient had a EKG done on arrival. The patient's EKG reveals a sinus rhythm with occasional ventricular premature complexes, heart rate of 93, QRS duration is 79 ms, QTC 421 ms. The patient is noted to have T wave inversions in lead I, aVL, V1, V2. No acute ST segment elevation. Discharge Plan Discharge Disposition Patient Disposition: ED Admit(ED Internal Use Only) Discharge Order Discharge Orders: ED Use Only Admit Order (Routine); Ordered 06/12/18 Ordered By: Kamala Oh Discharge Details Diagnosis: Chest pain, rule out acute myocardial infarction Physicians Team ED Provider: Kamala Oh Primary Care Provider: Primary Care Physici,No Rxs /Orders / Referrals /Forms Prescriptions: No Action furosemide 40 mg Tablet 40 mg PO DAILY RF: 0 atorvastatin 40 mg Tablet 40 mg PO DAILY RF: 0 aspirin [Aspir-Low] 81 mg Tablet,Delayed Release (Dr/Ec) 81 mg PO DAILY RF: 0 tamsulosin 0.4 mg Capsule 0.4 mg PO DAILY RF: 0 amlodipine 10 mg Tablet 10 mg PO DAILY RF: 0 warfarin 5 mg Tablet 5 mg PO DAILY RF: 0 hydralazine 50 mg Tablet 50 mg PO TID RF: 0 gabapentin 100 mg Capsule 100 mg PO BID RF: 0 atenolol 50 mg Tablet 50 mg PO DAILY RF: 0 loratadine 10 mg Capsule 10 mg PO DAILY RF: 0 benzocaine-menthol 15-2.6 mg Lozenge 1 misty MUCOUS MEMBRANE Q2-4H PRN (Reason: Cough) RF: 0 Discharge Instructions Patient Printed Instructions: Chest Pain (ED) Discharge Interventions Interventions: Vital Signs Last Done: 06/12/18 18:48 Status ED Status: With Doctor
--- NOTE | 2018-06-12 19:32 | XR ---
EXAM DATE: 06/12/2018 7:22 PM EST AGE/SEX: 63 years / Male INDICATIONS: Bilateral chest pain. CLINICAL DATA: This is the patient's initial encounter. Patient reports that signs and symptoms have been present for 2 days and indicates a pain score of 7/10. MEDICAL/SURGICAL HISTORY: Cardiovascular disease. Heart attack. CABG. [place] [facility] [place] . FINDINGS: Single AP view the chest. Median sternotomy wires are present. Mildly prominent cardiac silhouette. L ungs are clear. No evidence of pleural effusion or pneumothorax. CONCLUSION: Mildly prominent cardiac silhouette unchanged. No acute cardiopulmonary disease identified. Electronically signed by: Mingo Deng MD Board Certified Radiologist 06/12/2018 7:30 PM EST
[2018-06-12 19:35] LABS: Activated Partial Thrombo Time 46.5 sec (23.4-31.7); INR 1.9 Ratio
[2018-06-12 19:42] LABS: Alanine Aminotransferase 22 U/L (12-78)
[2018-06-12 19:46] LABS: Alkaline Phosphatase 81 U/L (45-117); Creatine Kinase 130 U/L (39-308); Total Protein 8.3 g/dL (6.4-8.2); Troponin I 0.03 ng/mL (0.02-0.05)
[2018-06-12 19:49] LABS: Albumin 2.9 g/dL (3.4-5.0); Anion Gap 9 meq/L (5-15); Aspartate Aminotransferase 31 U/L (15-37); Blood Urea Nitrogen 52 mg/dL (7-18); Calcium 8.5 mg/dL (8.5-10.1); Carbon Dioxide 22.1 meq/L (21.0-32.0); Chloride 108 meq/L (98-107); Glomerular Filtration Rate 18 mL/min (>89); Glucose,Random 75 mg/dL (74-106); Lipase 212 U/L (73-393); Magnesium 2.2 mg/dL (1.5-2.5); Potassium 4.1 meq/L (3.5-5.1); Prothrombin Time 19.3 sec (9.8-11.6); Sodium 139 meq/L (136-145)
[2018-06-12 19:58] LABS: Creatine Kinase MB 1.4 ng/mL (0.5-3.6)
[2018-06-12 22:43] LABS: Troponin I 0.04 ng/mL (0.02-0.05)
[2018-06-13 01:55] LABS: Troponin I 0.04 ng/mL (0.02-0.05)
--- NOTE | 2018-06-13 08:00 | P.HPCA ---
History of Present Illness Primary Care Physician: No Primary Care Physician Chief Complaint: Chest pain History of Present Illness: 63 year old male with history dafne coronary artery disease with CABG in 2017 presents to ER for further evaluation pain. Onset 2 days ago. States he recently was discharged from [facility] in [place] for the flu. With admitted for 5 days. Endorses chest discomfort during admission. Location left anterior chest. Duration "a few minutes." Associated symptoms include mild dyspnea. Denied nausea, vomiting, or diaphoresis. Precipitating factors current increased stress. No relieving factors. Reports exertional chest pain since CABG last year, chest pain never fully resolved after operation. Does not follow with a primary care provider or [facility]. Past cardiac testing 07/31/17 Lexiscan-normal examination 05/30/2017 CABG-AGUILAR to LAD and a vein graft to circumflex marginal branch. 05/28/2017 Cardiac catheterization 99% ostial LAD and 90% proximal circumflex disease Social history Known coronary artery disease, hypertension, and hyperlipidemia. No known diabetes. Current half a pack a day smoker. Endorse last using cocaine use one week ago. Frequent alcohol use. - Diagnosis (1) Chest pain, rule out acute myocardial infarction (2) Coronary artery disease (3) Hypertension (4) Tobacco use (5) Cocaine abuse (6) CKD (chronic kidney disease) (7) Anemia Review of Systems All other systems reviewed negative except as stated [facility] - History History Provided By: Patient - Medical History Medical History: Medical History (Last Updated 06/13/18 @ 10:44 by ASAEL Estrada) Chronic kidney disease Cocaine use Congestive heart failure Coronary artery disease Hyperlipidemia Hypertension Myocardial infarct - Surgical History Surgical History: Surgical History (Last Updated 06/13/18 @ 10:44 by ASAEL Estrada) H/O hernia repair History of appendectomy Previous back surgery S/P CABG x 2 Onset Date: ~05/30/17 - Tobacco History Second Hand Smoke Exposure: Yes Tobacco Use In Past 30 Days: Yes Smoking Status: Current every day smoker Tobacco Type: Cigarettes Packs Per Day: 0.5 Cigarettes Per Day: 10.0 - Alcohol History How Often Do You Have a Drink Containing Alcohol: 2 to 4 times a month - Substance Use History Substance History: Active Abuse - Substance Use Type Crack/Cocaine Status: Active - Travel History Recent Travel in the [facility] Within the Last 8 Weeks: No Recent Travel Out of the Country Within the Last 8 Weeks: No - Immunization History Tetanus Immunization: Unsure Medications and Allergies Active Medications: Active Medications Hydrocodone Bitart/Acetaminophen ([place] 7.5/325) 1 tab PO Q4H PRN PRN Reason: PAIN SCALE 1 TO 7 Nitroglycerin (Nitrostat Sl) 0.4 mg SL Q5M PRN PRN Reason: CHEST PAIN Last Admin: 06/12/18 19:27 Dose: 0.4 mg Sodium Chloride (Ns Flush) 2 ml IV.FLUSH UNSCH PRN PRN Reason: FLUSH AFTER USING IV ACCESS Sodium Chloride (Ns Flush) 2 ml IV.FLUSH BID MIGUEL Last Admin: 06/12/18 20:55 Dose: Not Given Sodium Chloride (Ns Flush) 2 ml IV.FLUSH PRN PRN PRN Reason: FLUSH AFTER USING IV ACCESS Allergies Allergy/AdvReac Type Severity Reaction Status Date / Time morphine AdvReac Intermediate Confusion Verified 07/24/17 00:01 Home Medications Medication Instructions Recorded Confirmed Type amlodipine 10 mg PO DAILY 06/12/18 06/12/18 History aspirin [Aspir-Low] 81 mg PO DAILY 06/12/18 06/12/18 History atenolol 50 mg PO DAILY 06/12/18 06/12/18 History atorvastatin 40 mg PO DAILY 06/12/18 06/12/18 History benzocaine-menthol 1 misty MUCOUS MEMBRANE Q2-4H PRN 06/12/18 06/12/18 History furosemide 40 mg PO DAILY 06/12/18 06/12/18 History gabapentin 100 mg PO BID 06/12/18 06/12/18 History hydralazine 50 mg PO TID 06/12/18 06/12/18 History loratadine 10 mg PO DAILY 06/12/18 06/12/18 History tamsulosin 0.4 mg PO DAILY 06/12/18 06/12/18 History warfarin 5 mg PO DAILY 06/12/18 06/12/18 History Exam Vital signs: Vital Signs 06/12/18 18:35 06/12/18 18:48 06/12/18 19:08 Temperature 98.6 F Pulse Rate 98 H 18 L 91 H Respiratory Rate 20 18 Blood Pressure 172/85 H 157/67 H Pulse Oximetry 93 L 98 06/12/18 19:34 06/12/18 20:55 06/13/18 00:00 Temperature 98.4 F Pulse Rate 94 H 87 81 Respiratory Rate 18 16 16 Blood Pressure 167/87 H 157/70 H 135/73 Pulse Oximetry 99 98 97 06/13/18 00:31 06/13/18 04:00 Temperature 98.8 F Pulse Rate 79 88 Respiratory Rate 16 Blood Pressure 123/66 Pulse Oximetry 91 L Intake & Output 06/12/18 06/13/18 06/13/18 18:59 06:59 18:59 Output Total 300 / 300 Balance -300 / -300 Weight 90.718 kg 90.718 kg Output: Urine 300 / 300 Other: Weight On Admission 90.718 kg Narrative: GENERAL: Alert WN, WD, NAD, obese, -[place] male easily awakens from. HEAD: NC, AT EYES: Sclera clear, conjunctiva without injection, pupils equal and round ENT: Mucous membranes pink and moist, no nasal discharge or bleeding NECK: Supple, no masses, trachea midline CV: RRR, without murmur, rub, gallop, no JVD, S1-S2 RESP: Clear lungs throughout bilateral, no crackles, wheeze, rhonchi, symmetrical chest rise, nonlabored, able to speak in full sentences ABD: Soft, NT, ND, no masses, positive bowel tones EXT: Pulses +2x4, no dependent edema MS: Normal tone x4 extremities, nontender, no obvious deformities, full range of motion NEURO: Motor strength 5/5 PSYCH: A+O x3, flat affect, appropriate speech, mood, insight and judgment SKIN: Normal turgor, normal texture, no lesions, no rashes, midline chest surgical scar Results 06/12/18 18:55 06/12/18 18:55 Cardiac Enzymes 06/12/18 06/12/18 06/12/18 Range/Units 18:55 18:55 22:04 AST 31 (15-37) U/L CK-MB (CK-2) 1.4 (0.5-3.6) ng/mL Troponin I 0.03 0.04 (0.02-0.05) ng/mL B-Natriuretic Peptide 292 H (0-100) pg/mL 06/13/18 Range/Units 01:00 AST (15-37) U/L CK-MB (CK-2) (0.5-3.6) ng/mL Troponin I 0.04 (0.02-0.05) ng/mL B-Natriuretic Peptide (0-100) pg/mL Coagulation 06/12/18 06/12/18 Range/Units 18:55 18:55 PT 19.3 H (9.8-11.6) sec APTT 46.5 H (23.4-31.7) sec B-Natriuretic Peptide 292 H (0-100) pg/mL CBC 06/12/18 Range/Units 18:55 WBC 9.1 (4.0-11.0) th/mm3 RBC 3.32 L (4.50-5.90) mil/mm3 Hgb 8.9 L (13.0-17.0) gm/dL Hct 27.3 L (39.0-51.0) % Plt Count 281 (150-450) th/mm3 Neut # (Auto) 4.5 (1.8-7.7) th/mm3 Lymph # (Auto) 3.2 (1.0-4.8) th/mm3 [place] # (Auto) 1.2 H (0.0-0.9) th/mm3 Eos # (Auto) 0.2 (0.0-0.4) th/mm3 Baso # (Auto) 0.1 (0.0-0.2) th/mm3 Comprehensive Metabolic Panel 06/12/18 Range/Units 18:55 Sodium 139 (136-145) meq/L Potassium 4.1 (3.5-5.1) meq/L Chloride 108 H (98-107) meq/L Carbon Dioxide 22.1 (21.0-32.0) meq/L BUN 52 H (7-18) mg/dL Creatinine 3.98 H (0.60-1.30) mg/dL Calcium 8.5 (8.5-10.1) mg/dL AST 31 (15-37) U/L ALT 22 (12-78) U/L Alkaline Phosphatase 81 (45-117) U/L Total Protein 8.3 H (6.4-8.2) g/dL Albumin 2.9 L (3.4-5.0) g/dL Intake and Output 06/12/18 06/13/18 06/13/18 22:59 06:59 14:59 Output Total 300 / 300 Balance -300 / -300 Output: Urine 300 / 300 Other: Weight 90.718 kg Weight On Admission 90.718 kg - Imaging and Cardiology Imaging: Impressions Chest X-Ray 06/12/18 19:07 CONCLUSION: Mildly prominent cardiac silhouette unchanged. No acute cardiopulmonary disease identified. EKG interpretations - EKG EKG results cardiology: sinus rhythm (Nonspecific ST-T segment changes) Caprini VTE Risk Assessment Caprini VTE Risk Assessment: Moderate/High Risk (score >= 2) Caprini Risk Assessment Model: Point Value = 1 Point Value = 2 Point Value = 3 Point Value = 5 Age 41-60 Minor surgery BMI > 25 kg/m2 Swollen legs Varicose veins or History of unexplained or recurrent spontaneous Oral contraceptives or hormone replacement Sepsis (< 1 month) Serious lung disease, including pneumonia (< 1 month) Abnormal pulmonary function Acute myocardial infarction Congestive heart failure (< 1 month) History of inflammatory bowel disease Medical patient at bed rest Age 61-74 Arthroscopic surgery Major open surgery (> 45 min) Laparoscopic surgery (> 45 min) Malignancy Confined to bed (> 72 hours) Immobilizing plaster cast Central venous access Age >= 75 History of VTE Family history of VTE Factor V Leiden Prothrombin [id number] Lupus anticoagulant Anticardiolipin antibodies Elevated serum homocysteine Heparin-induced thrombocytopenia Other congenital or acquired thrombophilia Stroke (< 1 month) Elective arthroplasty Hip, pelvis, or leg fracture Acute spinal cord injury (< 1 month) Prophylaxis Regimen: Total Risk Factor Score Risk Level Prophylaxis Regimen 0-1 Low Early ambulation 2 Moderate Order ONE of the following: *Sequential Compression Device (SCD) *Heparin 5000 units SQ BID 3-4 Higher Order ONE of the following medications: *Heparin 5000 units SQ TID *Enoxaparin/Lovenox 40 mg SQ daily (WT < 150 kg, CrCl > 30 mL/min) *Enoxaparin/Lovenox 30 mg SQ daily (WT < 150 kg, CrCl > 10-29 mL/min) *Enoxaparin/Lovenox 30 mg SQ BID (WT < 150 kg, CrCl > 30 mL/min) AND/OR *Sequential Compression Device (SCD) 5 or more Highest Order ONE of the following medications: *Heparin 5000 units SQ TID (Preferred with Epidurals) *Enoxaparin/Lovenox 40 mg SQ daily (WT < 150 kg, CrCl > 30 mL/min) *Enoxaparin/Lovenox 30 mg SQ daily (WT < 150 kg, CrCl > 10-29 mL/min) *Enoxaparin/Lovenox 30 mg SQ BID (WT < 150 kg, CrCl > 30 mL/min) AND *Sequential Compression Device (SCD) Assessment and Plan - Assessment (1) Chest pain, rule out acute myocardial infarction Code(s): R07.9 - Chest pain, unspecified Status: Acute Plan: Admitted chest pain center. ACS ruled out with 3 sets of EKGs and cardiac enzymes. Recently discharged from [facility] 2 days ago. Discharge diagnosis included atypical chest pain and flash pulmonary edema. Attempt to obtain medical records, if unable to obtain medical records or if did not have an recent cardiac testing [facility] (2) Coronary artery disease Code(s): I25.10 - Atherosclerotic heart disease of eagle coronary artery without angina pectoris Status: Chronic Plan: Continue aspirin, atenolol, atorvastatin, (3) Hypertension Code(s): I10 - Essential (primary) hypertension Status: Chronic Plan: Continue amlodipine. (4) Tobacco use Code(s): Z72.0 - Tobacco use Status: Chronic Plan: Strongly encouraged and stressed the importance of tobacco cessation. Instructed to quit smoking and aware of tobacco free [place] program available and contact information will be provided upon discharge instructions. (5) Cocaine abuse Code(s): F14.10 - Cocaine abuse, uncomplicated Status: Chronic Plan: Made aware of risk of using cocaine including and MS. Instructed to quit using cocaine. (6) CKD (chronic kidney disease) Code(s): N18.9 - Chronic kidney disease, unspecified Status: Chronic Plan: History of CKD. Does not follow with primary care provider or nephrology. Creatinine levels July 2017 level 2s, November 2017 creatinine 3.44, and today level 3.98. Discussed importance of follow up. (7) Anemia Code(s): D64.9 - Anemia, unspecified Status: Acute H&P: Quality - VTE Deep Vein Thrombosis/Pulmonary Embolism Present on Admission: No (2) Coronary artery disease Qualifiers: Associated angina: angina presence unspecified (3) Hypertension Qualifiers: Hypertension type: unspecified Qualified Code(s): I10 - Essential (primary) hypertension (6) CKD (chronic kidney disease) Qualifiers: Chronic kidney disease stage: unspecified stage Qualified Code(s): N18.9 - Chronic kidney disease, unspecified (7) Anemia Qualifiers: Anemia type: unspecified type Qualified Code(s): D64.9 - Anemia, unspecified
[2018-06-13 09:01] VITALS: BP 121/61; PULSE 81; RESP 19; TEMP 98.2; O2SAT 97
[2018-06-13] MEDS ORDERED: Furosemide 40 MG Tablet PO SCH (10:15)
[2018-06-13] MEDS ORDERED: Gabapentin 100 MG Capsule PO SCH (10:15)
[2018-06-13] MEDS ORDERED: amLODIPine 10 MG Tablet PO SCH (10:15)
[2018-06-13] MEDS ORDERED: Loratadine 10 MG Tablet PO SCH (10:45)
[2018-06-13] MEDS ORDERED: Regadenoson Inj 0.4 MG/5 ML Syringe IV.PUSH ONE (12:25)
[2018-06-13] MEDS ORDERED: hydrALAZINE 50 MG Tablet PO SCH (13:00)
--- NOTE | 2018-06-13 14:14 | NM ---
EXAM DATE: 06/13/2018 2:05 PM EST AGE/SEX: 63 years / Male INDICATIONS:Angina. Coronary artery disease Chest pain. CLINICAL DATA: This is the patient's initial encounter. Patient reports that signs and symptoms have been present for 1 day and indicates a pain score of 0/10. MEDICAL/SURGICAL HISTORY: Myocardial infarction. Congestive heart failure. Hypertension. CABG . COMPARISON: [facility], MYOCARDIAL PERF PHARM SPECT, 07/31/2017. . DOSE: 8.3 mCi Tc 99m Myoview at rest 26.9 mCi [id number] at stress 0.4 mg Lexiscan STRESS SYMPTOMS: Short of breath. EJECTION FRACTION: 63 % TECHNIQUE: The patient underwent pharmacologic stress with infusion of prescribed dose. Continuous ECG tracing was monitored during stress. Gated SPECT imaging was performed after stress and conventi onal SPECT imaging was performed at rest. The examination was performed on a SPECT/CT scanner, both attenuation and non-corrected datasets were reviewed. FINDINGS: Distribution: The maximum perfused segment at stress is in the septal wall. Perfusion Study: The pattern of perfusion at stress is within normal limits. Gated Study: There are intact wall motion and wall thickening without hypokinetic or dyskinetic segm ents. The ejection fraction is calculated at 63%. RISK CATEGORY: Low (<1% Annual Motality Rate) CONCLUSION: 1. Negative examination. Electronically signed by: Kodak Reardon MD Board Certified Radiologist 06/13/2018 2:13 PM EST
--- NOTE | 2018-06-13 15:03 | ECG ---
Date Performed: 06/13/2018 Time Performed: 00:51:55 PTAGE: 63 years EKG: Sinus rhythm WITH OCCASIONAL SUPRAVENTRICULAR PREMATURE COMPLEXES POSSIBLE LEFT ATRIAL ENLARGEMENT BORDERLINE LEF T AXIS DEVIATION POSSIBLE RIGHT VENTRICULAR CONDUCTION DELAY NONSPECIFIC T-WAVE ABNORMALITY ABNORMAL ECG PREVIOUS TRACING : 06/12/2018 21.53 Since previous tracing, no significant change noted DOCTOR: Martín Escamilla Interpretating Date/Time 06/13/2018 15:01:54
--- NOTE | 2018-06-13 15:03 | ECG ---
Date Performed: 06/12/2018 Time Performed: 21:53:03 PTAGE: 63 years EKG: Sinus rhythm WITH OCCASIONAL VENTRICULAR PREMATURE COMPLEXES POSSIBLE LEFT ATRIAL ENLARGEMENT POSSIBLE RIGHT VENT RICULAR CONDUCTION DELAY NONSPECIFIC T-WAVE ABNORMALITY ABNORMAL ECG PREVIOUS TRACING : 06/12/2018 18.50 Since previous tracing, no significant change noted DOCTOR: Martín Escamilla Interpretating Date/Time 06/13/2018 15:02:22
--- NOTE | 2018-06-13 15:04 | ECG ---
Date Performed: 06/12/2018 Time Performed: 18:50:23 PTAGE: 63 years EKG: Sinus rhythm WITH OCCASIONAL VENTRICULAR PREMATURE COMPLEXES POSSIBLE LEFT ATRIAL ENLARGEMENT BORDERLINE LEFT AXI S DEVIATION POSSIBLE RIGHT VENTRICULAR CONDUCTION DELAY MODERATE T-WAVE ABNORMALITY, CONSIDER LATERAL ISCHEMIA ABNORMAL ECG NO PREVIOUS TRACING DOCTOR: Martín Escamilla Interpretating Date/Time 06/13/2018 15:02:53
--- NOTE | 2018-06-13 15:07 | TR ---
Date Performed: 06/13/2018 Time Performed: 12:24:38 DOCTOR: Martín Escamilla DRUG LIST: CLINICAL HISTORY: REASON FOR TEST: REASON FOR ENDING: OBSERVATION: CONCLUSION: COMMENTS: Lexiscan stress test was performed under standard four minute protocol. Radionuclide was injected one minute prior to ending the test. No electrocardiographic abormalities were present t o suggest ischemia. Nuclear imaging and interpretation are pending.
== END 2018-06-13 16:13 | disposition home or self-care (01) ==
LOC: NEDA 18:19 → NEPC 18:19 → NEDA 21:16 → NEPHCDU 21:35
PROVIDERS: ADMIT Internal Medicine Interventional Cardiology; ATTEND Internal Medicine Interventional Cardiology

== ENCOUNTER 2018-08-03 12:31 | Inpatient (IN) ==
--- NOTE | 2018-08-03 13:03 | ED ---
HPI General Chief Complaint: Shortness of Breath/Dyspnea Stated Complaint: gen weakness Time Seen by Provider: 08/03/18 12:51 Source: patient Mode of arrival: ambulatory Limitations: no limitations History of Present Illness 63-year-old male complains of general malaise and weakness and shortness of breath. Patient states that his symptoms started about a week ago. Patient states that he has mild intermittent dry cough. Patient denies any headache. Patient denies any neck pain. Patient denies any visual change. Patient denies any chest pain. Patient denies abdominal pain. He denies any nausea vomiting diarrhea. Patient denies any fever chills. Patient denies any dysuria frequency. Patient has history of CAD status post stent placement. Patient has history of hypertension, chronic kidney disease, anemia, CHF, hyperlipidemia. Patient is a smoker. Patient states that he noticed some black tarry stools today. Patient denies history of GI bleed in the past. Related Data Home Medications Medication Instructions Recorded Confirmed benzocaine-menthol 1 misty MUCOUS MEMBRANE Q2-4H PRN 06/12/18 08/03/18 Previous Rx's Medication Instructions Recorded amlodipine 10 mg PO DAILY #30 tab 07/08/18 aspirin [Aspir-Low] 81 mg PO DAILY #30 tab 07/08/18 atenolol 50 mg PO DAILY #30 tab 07/08/18 atorvastatin 40 mg PO DAILY #30 tab 07/08/18 colchicine [Colcrys] 0.6 mg PO BID PRN #6 tab 07/08/18 furosemide 40 mg PO DAILY #30 tab 07/08/18 gabapentin 100 mg PO BID #60 cap 07/08/18 hydralazine 50 mg PO TID #90 tab 07/08/18 loratadine 10 mg PO DAILY #30 cap 07/08/18 tamsulosin 0.4 mg PO DAILY #30 cap 07/08/18 warfarin 5 mg PO DAILY #30 tab 07/08/18 Allergies Allergy/AdvReac Type Severity Reaction Status Date / Time morphine AdvReac Intermediate Confusion Verified 07/24/17 00:01 Review of Systems ROS: all other systems reviewed are negative PMFSH History History Provided By: Patient Social History Social History Substance History: Past History Second Hand Smoke Exposure: Yes Smoking Status: Current every day smoker Tobacco Type: Cigarettes Packs Per Day: 0.5 Cigarettes Per Day: 10.0 How Often Do You Have a Drink Containing Alcohol: Never Recent Travel in [place] within the Last 8 Weeks: No Recent Out of Country Travel within the Last 8 Weeks: No Exam Narrative Exam Narrative: GENERAL: Well-nourished, well-developed patient. SKIN: Focused skin assessment warm/dry. HEAD: Normocephalic. EYES: No scleral icterus. No injection or drainage. NECK: Supple, trachea midline. No JVD or lymphadenopathy. CARDIOVASCULAR: Regular rate and rhythm without murmurs, gallops, or rubs. RESPIRATORY: Breath sounds equal bilaterally. No accessory muscle use. GASTROINTESTINAL: Abdomen soft, non-tender, nondistended. Rectal exam with black tarry stool. Hemoccult positive. MUSCULOSKELETAL: No cyanosis, or edema. BACK: Nontender without obvious deformity. No CVA tenderness. Neurologic exam normal. Course Initial Documented Vital Signs Temperature 97.7 F 08/03/18 12:44 Pulse Rate 76 08/03/18 12:44 Respiratory Rate 20 08/03/18 12:44 Blood Pressure 131/63 08/03/18 12:44 Pulse Oximetry 96 08/03/18 12:44 Last Documented Vital Signs Temperature 97.7 F 08/03/18 12:44 Pulse Rate 70 08/03/18 13:33 Respiratory Rate 20 08/03/18 12:44 Blood Pressure 131/63 08/03/18 12:44 Pulse Oximetry 100 08/03/18 13:33 Medical Decision Making MDM Narrative Medical decision making narrative: 63-year-old male with generalized malaise and weakness and black tarry stool. CBC shows anemia. Patient is on Coumadin. Vitamin K 5 mg subcu given. Patient will be given blood transfusion. Patient will be admitted with GI consultation. Medical Screen Exam Complete: Yes Emergency Medical Condition: Yes Lab Data Lab results reviewed: Yes I reviewed the patient's lab results. Result diagrams: 08/03/18 13:09 08/03/18 13:09 Lab Results 08/03/18 08/03/18 08/03/18 Range/Units 13: 13: 13:09 WBC 4.7 (4.0-11.0) th/mm3 RBC 2.35 L (4.50-5.90) mil/mm3 Hgb 6.5 L* (13.0-17.0) gm/dL Hct 19.8 L* (39.0-51.0) % MCV 84.2 (80.0-100.0) fL MCH 27.6 (27.0-34.0) pg MCHC 32.8 (32.0-36.0) % RDW 20.6 H (11.6-17.2) % Plt Count 150 (150-450) th/mm3 MPV 7.2 (7.0-11.0) fL Neut % (Auto) 50.9 (16.0-70.0) % Lymph % (Auto) 33.8 (9.0-44.0) % Holmes % (Auto) 10.4 H (0.0-8.0) % Eos % (Auto) 4.5 H (0.0-4.0) % Baso % (Auto) 0.4 (0.0-2.0) % Neut # (Auto) 2.4 (1.8-7.7) th/mm3 Lymph # (Auto) 1.6 (1.0-4.8) th/mm3 Holmes # (Auto) 0.5 (0.0-0.9) th/mm3 Eos # (Auto) 0.2 (0.0-0.4) th/mm3 Baso # (Auto) 0.0 (0.0-0.2) th/mm3 WBC Differential . Differential Comment Auto diff final PT (9.8-11.6) sec INR Ratio APTT (23.4-31.7) sec D-Dimer Quant (PE/DVT) 0.32 (0.00-0.50) mg/L FEU Sodium 144 (136-145) meq/L Potassium 4.2 (3.5-5.1) meq/L Chloride 112 H (98-107) meq/L Carbon Dioxide 23.2 (21.0-32.0) meq/L Anion Gap 9 (5-15) meq/L BUN 63 H (7-18) mg/dL Creatinine 3.32 H (0.60-1.30) mg/dL Estimated GFR 23 L (>89) mL/min Random Glucose 104 (74-106) mg/dL Calcium 7.7 L (8.5-10.1) mg/dL Total Bilirubin 0.3 (0.2-1.0) mg/dL AST 20 (15-37) U/L ALT 15 (12-78) U/L Alkaline Phosphatase 94 (45-117) U/L Total Creatine Kinase 91 (39-308) U/L Troponin I 0.04 (0.02-0.05) ng/mL B-Natriuretic Peptide (0-100) pg/mL Total Protein 6.7 (6.4-8.2) g/dL Albumin 2.6 L (3.4-5.0) g/dL Urine Color (Yellw/Straw) Urine Clarity (Clear) Urine pH (5.0-8.5) Ur Specific Aurora (1.002-1.035) Urine Protein (Neg-Trace) mg/dL Urine Glucose (UA) (Negative) mg/dL Urine Ketones (Negative) mg/dL Urine Occult Blood (Negative) Urine Nitrate (Negative) Urine Bilirubin (Negative) Urine Urobilinogen (Less than 2) mg/dL Ur Leukocyte Esterase (Negative) Urine RBC (0-3) /hpf Urine WBC (0-5) /hpf Micro UA Comment Ur Microscopic Review Urine Culture Comments MTS Gel Crossmatch 08/03/18 08/03/18 08/03/18 Range/Units 13:09 13:09 13:30 WBC (4.0-11.0) th/mm3 RBC (4.50-5.90) mil/mm3 Hgb (13.0-17.0) gm/dL Hct (39.0-51.0) % MCV (80.0-100.0) fL MCH (27.0-34.0) pg MCHC (32.0-36.0) % RDW (11.6-17.2) % Plt Count (150-450) th/mm3 MPV (7.0-11.0) fL Neut % (Auto) (16.0-70.0) % Lymph % (Auto) (9.0-44.0) % Holmes % (Auto) (0.0-8.0) % Eos % (Auto) (0.0-4.0) % Baso % (Auto) (0.0-2.0) % Neut # (Auto) (1.8-7.7) th/mm3 Lymph # (Auto) (1.0-4.8) th/mm3 Holmes # (Auto) (0.0-0.9) th/mm3 Eos # (Auto) (0.0-0.4) th/mm3 Baso # (Auto) (0.0-0.2) th/mm3 WBC Differential Differential Comment PT 29.7 H D (9.8-11.6) sec INR 2.9 Ratio APTT 51.1 H (23.4-31.7) sec D-Dimer Quant (PE/DVT) (0.00-0.50) mg/L FEU Sodium (136-145) meq/L Potassium (3.5-5.1) meq/L Chloride (98-107) meq/L Carbon Dioxide (21.0-32.0) meq/L Anion Gap (5-15) meq/L BUN (7-18) mg/dL Creatinine (0.60-1.30) mg/dL Estimated GFR (>89) mL/min Random Glucose (74-106) mg/dL Calcium (8.5-10.1) mg/dL Total Bilirubin (0.2-1.0) mg/dL AST (15-37) U/L ALT (12-78) U/L Alkaline Phosphatase (45-117) U/L Total Creatine Kinase (39-308) U/L Troponin I (0.02-0.05) ng/mL B-Natriuretic Peptide 845 H (0-100) pg/mL Total Protein (6.4-8.2) g/dL Albumin (3.4-5.0) g/dL Urine Color Yellow (Yellw/Straw) Urine Clarity Clear (Clear) Urine pH 5.0 (5.0-8.5) Ur Specific Aurora 1.010 (1.002-1.035) Urine Protein 100 H (Neg-Trace) mg/dL Urine Glucose (UA) Negative (Negative) mg/dL Urine Ketones Negative (Negative) mg/dL Urine Occult Blood Negative (Negative) Urine Nitrate Negative (Negative) Urine Bilirubin Negative (Negative) Urine Urobilinogen Less than 2 (Less than 2) mg/dL Ur Leukocyte Esterase Negative (Negative) Urine RBC Less than 1 (0-3) /hpf Urine WBC 1 (0-5) /hpf Micro UA Comment Culture not ind Ur Microscopic Review Not Reportable Urine Culture Comments Culture not ind MTS Gel Crossmatch 08/03/18 Range/Units 14:20 WBC (4.0-11.0) th/mm3 RBC (4.50-5.90) mil/mm3 Hgb (13.0-17.0) gm/dL Hct (39.0-51.0) % MCV (80.0-100.0) fL MCH (27.0-34.0) pg MCHC (32.0-36.0) % RDW (11.6-17.2) % Plt Count (150-450) th/mm3 MPV (7.0-11.0) fL Neut % (Auto) (16.0-70.0) % Lymph % (Auto) (9.0-44.0) % Holmes % (Auto) (0.0-8.0) % Eos % (Auto) (0.0-4.0) % Baso % (Auto) (0.0-2.0) % Neut # (Auto) (1.8-7.7) th/mm3 Lymph # (Auto) (1.0-4.8) th/mm3 Holmes # (Auto) (0.0-0.9) th/mm3 Eos # (Auto) (0.0-0.4) th/mm3 Baso # (Auto) (0.0-0.2) th/mm3 WBC Differential Differential Comment PT (9.8-11.6) sec INR Ratio APTT (23.4-31.7) sec D-Dimer Quant (PE/DVT) (0.00-0.50) mg/L FEU Sodium (136-145) meq/L Potassium (3.5-5.1) meq/L Chloride (98-107) meq/L Carbon Dioxide (21.0-32.0) meq/L Anion Gap (5-15) meq/L BUN (7-18) mg/dL Creatinine (0.60-1.30) mg/dL Estimated GFR (>89) mL/min Random Glucose (74-106) mg/dL Calcium (8.5-10.1) mg/dL Total Bilirubin (0.2-1.0) mg/dL AST (15-37) U/L ALT (12-78) U/L Alkaline Phosphatase (45-117) U/L Total Creatine Kinase (39-308) U/L Troponin I (0.02-0.05) ng/mL B-Natriuretic Peptide (0-100) pg/mL Total Protein (6.4-8.2) g/dL Albumin (3.4-5.0) g/dL Urine Color (Yellw/Straw) Urine Clarity (Clear) Urine pH (5.0-8.5) Ur Specific Aurora (1.002-1.035) Urine Protein (Neg-Trace) mg/dL Urine Glucose (UA) (Negative) mg/dL Urine Ketones (Negative) mg/dL Urine Occult Blood (Negative) Urine Nitrate (Negative) Urine Bilirubin (Negative) Urine Urobilinogen (Less than 2) mg/dL Ur Leukocyte Esterase (Negative) Urine RBC (0-3) /hpf Urine WBC (0-5) /hpf Micro UA Comment Ur Microscopic Review Urine Culture Comments MTS Gel Crossmatch See Detail Imaging Data Attestation: I personally reviewed and interpreted this imaging study as follows : Radiologist's impression: Chest X-Ray 08/03/18 12:58 CONCLUSION: Mild cardiac decompensation Discharge Plan Discharge Disposition Patient Disposition: ED Admit(ED Internal Use Only) Discharge Order Discharge Orders: ED Use Only Admit Order (Routine); Ordered 08/03/18 Ordered By: Anish Mcbride Discharge Details Diagnosis: GI bleed, Anemia, Anticoagulation adequate Physicians Team ED Provider: Anish Mcbride Primary Care Provider: UNKNOWN, Rxs /Orders / Referrals /Forms Prescriptions: No Action benzocaine-menthol 15-2.6 mg Lozenge 1 misty MUCOUS MEMBRANE Q2-4H PRN (Reason: Cough) RF: 0 furosemide 40 mg Tablet 40 mg PO DAILY Qty: 30 RF: 0 atorvastatin 40 mg Tablet 40 mg PO DAILY Qty: 30 RF: 0 aspirin [Aspir-Low] 81 mg Tablet,Delayed Release (Dr/Ec) 81 mg PO DAILY Qty: 30 RF: 0 tamsulosin 0.4 mg Capsule 0.4 mg PO DAILY Qty: 30 RF: 0 amlodipine 10 mg Tablet 10 mg PO DAILY Qty: 30 RF: 0 warfarin 5 mg Tablet 5 mg PO DAILY Qty: 30 RF: 0 hydralazine 50 mg Tablet 50 mg PO TID Qty: 90 RF: 0 gabapentin 100 mg Capsule 100 mg PO BID Qty: 60 RF: 0 atenolol 50 mg Tablet 50 mg PO DAILY Qty: 30 RF: 0 loratadine 10 mg Capsule 10 mg PO DAILY Qty: 30 RF: 0 colchicine [Colcrys] 0.6 mg Tablet 0.6 mg PO BID PRN (Reason: gout pain) Qty: 6 RF: 0 Status ED Status: Admitted Patient
[2018-08-03 13:31] LABS: Baso % (Auto) 0.4 % (0.0-2.0); Eos # (Auto) 0.2 th/mm3 (0.0-0.4); Eos % (Auto) 4.5 % (0.0-4.0); Lymph # (Auto) 1.6 th/mm3 (1.0-4.8); Lymph % (Auto) 33.8 % (9.0-44.0); Mean Corpuscular HGB Conc 32.8 % (32.0-36.0); Mean Corpuscular Hemoglobin 27.6 pg (27.0-34.0); Mean Corpuscular Volume 84.2 fL (80.0-100.0); Mean Platelet Volume 7.2 fL (7.0-11.0); Mono # (Auto) 0.5 th/mm3 (0.0-0.9); Mono % (Auto) 10.4 % (0.0-8.0); Neut # (Auto) 2.4 th/mm3 (1.8-7.7); Neut % (Auto) 50.9 % (16.0-70.0); Platelet Count 150 th/mm3 (150-450); Red Blood Count 2.35 mil/mm3 (4.50-5.90); Red Cell Distribution Width 20.6 % (11.6-17.2); White Blood Count 4.7 th/mm3 (4.0-11.0)
--- NOTE | 2018-08-03 13:31 | XR ---
EXAM DATE: 08/03/2018 1:26 PM EST AGE/SEX: 63 years / Male INDICATIONS: Short of breath. CLINICAL DATA: This is the patient's initial encounter. Patient reports that signs and symptoms have been present for 1 day and indicates a pain score of 0/10. MEDICAL/SURGICAL HISTORY: . Cardiovascular disease. Hypertension. Congestive heart failure. ID, A-fib. . CABG. Coronary artery stent. COMPARISON: [facility], CHEST 1V SINGLE AP, 07/06/2018. . FINDINGS: Cardiac enlargement and vascular congestion without definite focal infiltrate or significant effusion . Sternotomy wires. CONCLUSION: Mild cardiac decompensation Electronically signed by: Maikol Hui MD Board Certified Radiologist 08/03/2018 1:30 PM EST
[2018-08-03 13:34] LABS: Hematocrit 19.8 % (39.0-51.0); Hemoglobin 6.5 gm/dL (13.0-17.0)
[2018-08-03 13:45] LABS: Alanine Aminotransferase 15 U/L (12-78); Albumin 2.6 g/dL (3.4-5.0); Anion Gap 9 meq/L (5-15); Aspartate Aminotransferase 20 U/L (15-37); Blood Urea Nitrogen 63 mg/dL (7-18); Calcium 7.7 mg/dL (8.5-10.1); Carbon Dioxide 23.2 meq/L (21.0-32.0); Chloride 112 meq/L (98-107); Glomerular Filtration Rate 23 mL/min (>89); Glucose,Random 104 mg/dL (74-106); Potassium 4.2 meq/L (3.5-5.1); Sodium 144 meq/L (136-145)
[2018-08-03 13:48] LABS: Alkaline Phosphatase 94 U/L (45-117); Total Protein 6.7 g/dL (6.4-8.2); Troponin I 0.04 ng/mL (0.02-0.05)
[2018-08-03 13:50] LABS: Creatine Kinase 91 U/L (39-308)
[2018-08-03 13:57] LABS: Bilirubin,Urine Negative (Negative); Clarity,Urine Clear (Clear); Color,Urine Yellow (Yellw/Straw); Glucose,Urine (UA) Negative (Negative); Leukocyte Esterase,Urine Negative (Negative); Nitrite,Urine Negative (Negative)
[2018-08-03 14:00] LABS: Activated Partial Thrombo Time 51.1 sec (23.4-31.7); INR 2.9 Ratio; Prothrombin Time 29.7 sec (9.8-11.6)
[2018-08-03] MEDS ORDERED: Phytonadione Inj 10 MG/ML Vial SQ ONE (14:45)
[2018-08-03] MEDS ORDERED: Pantoprazole Inj 80 MG in Sodium Chlor 0.9% Inj 100 ML IV.CONT SCH (15:00)
[2018-08-03] MEDS ORDERED: Bisacodyl 10 MG Supp RECTAL PRN (15:04)
[2018-08-03] MEDS ORDERED: Acetaminophen 325 MG Tablet PO PRN (15:04)
--- NOTE | 2018-08-03 15:15 | P.HPIM ---
History of Present Illness Primary Care Physician: UNKNOWN Chief Complaint: Shortness of breath and generalized weakness History of Present Illness: 63-year-old male with history of hypertension, chronic kidney disease stage III, diastolic congestive heart failure, paroxysmal atrial fibrillation on warfarin presents with one week history of worsening generalized weakness and shortness of breath worse with physical exertion. He also noted black tarry stools today not associated with abdominal pain and came in for evaluation. He denies any loose stools. He reports having endoscopy colonoscopy over 10 years ago and does not really remember any significant results from it. He reports taking aspirin and warfarin but denies any [id number] NSAIDs. He reports no significant chest pain but reports occasional palpitations. He reports no associated chills or fever nor cough. He currently moved down from [place] and currently follows up with [facility] Review of Systems Constitutional: Reports as per HPI, Denies chills, Reports fatigue, Denies fever (s) and Denies headache(s) Eyes: Denies blurry vision, Denies change in vision and Denies eye pain Ears, Nose, Mouth, and Throat: Denies abnormal hearing, Denies headache(s), Denies mouth pain, Denies nasal congestion, Denies neck pain and Denies sore throat Cardiovascular: Denies chest pain, Denies rapid heart rate, Reports pedal edema , Reports edema, Reports palpitations, Reports dyspnea and Reports dyspnea on exertion Respiratory: Denies cough and Denies dyspnea Gastrointestinal: Denies abdominal pain, Reports melena, Denies constipation, Denies loose stools, Denies nausea and Denies vomiting Musculoskeletal: Denies back pain, Denies myalgias, Denies arthralgias, Denies neck pain and Denies numbness Skin/Breast: Denies new lesions and Denies rash Neurologic: Denies abnormal hearing, Denies headache(s), Denies focal weakness, Denies memory loss, Denies numbness and Reports weakness Psychiatric: Denies anxiety, Denies depression and Denies memory loss Endocrine: Denies cold intolerance, Denies heat intolerance and Denies palpitations Hematologic/Lymphatic: Denies easy bleeding and Denies easy bruising [facility] Medical History Medical History Congestive heart failure (Acute) Chronic kidney disease (Chronic) Coronary artery disease (Chronic) Hyperlipidemia (Chronic) Hypertension (Chronic) Myocardial infarct (Chronic) Cocaine use (Inactive) Surgical History Surgical History H/O hernia repair (Chronic) History of appendectomy (Chronic) Previous back surgery (Chronic) S/P CABG x 2 (Chronic ~05/30/17) Family History Family History Mother Heart disease Social History Social History Substance History: Past History Second Hand Smoke Exposure: Yes Smoking Status: Current every day smoker Tobacco Type: Cigarettes Packs Per Day: 0.5 Cigarettes Per Day: 10.0 How Often Do You Have a Drink Containing Alcohol: Never Recent Travel in [place] within the Last 8 Weeks: No Recent Out of Country Travel within the Last 8 Weeks: No Immunization History Tetanus Immunization: Unsure Medications and Allergies Allergies Allergy/AdvReac Type Severity Reaction Status Date / Time morphine AdvReac Intermediate Confusion Verified 07/24/17 00:01 Home Medications Medication Instructions Recorded Confirmed Type benzocaine-menthol 1 misty MUCOUS MEMBRANE Q2-4H PRN 06/12/18 08/03/18 History Active Medications: Active Medications Acetaminophen (Tylenol) 650 mg PO Q4H PRN PRN Reason: Temp > 100.4 Al Hydroxide/Mg Hydroxide (Milk Of Magnesia Liq) 30 ml PO Q12H PRN PRN Reason: Mild Constipation Bisacodyl (Dulcolax Supp) 10 mg RECTAL DAILY PRN PRN Reason: SEVERE CONSITIPATION Pantoprazole Sodium 80 mg/ (Sodium Chloride) 100 mls @ 10 mls/hr IV.CONT CONT MIGUEL Pantoprazole Sodium 80 mg/ (Sodium Chloride) 100 mls @ 10 mls/hr IV.CONT CONT MIGUEL Sodium Chloride (Ns Inj) 250 mls @ 15 mls/hr IV.SIG ONCE MIGUEL Stop: 08/04/18 08:39 Lactulose (Lactulose Liq) 30 ml PO DAILY PRN PRN Reason: SEVERE CONSITIPATION Ondansetron HCl (Zofran Inj) 4 mg IV.PUSH Q6H PRN PRN Reason: NAUSEA OR VOMITING Sennosides (Senokot) 17.2 mg PO Q12H PRN PRN Reason: Moderate Constipation Sodium Chloride (Ns Flush) 2 ml IV.FLUSH BID MIGUEL Sodium Chloride (Ns Flush) 2 ml IV.FLUSH PRN PRN PRN Reason: FLUSH AFTER USING IV ACCESS Physical Exam Vital signs: Vital Signs 08/03/18 12:44 08/03/18 13:33 Temperature 97.7 F Pulse Rate 76 70 Respiratory Rate 20 Blood Pressure 131/63 Pulse Oximetry 96 100 Intake & Output 08/02/18 08/03/18 08/03/18 18:59 06:59 18:59 Weight 85.729 kg Narrative: GENERAL: Well-nourished well-developed male no acute distress SKIN: Warm and dry. Venous stasis dermatitis changes lower extremity HEAD: Atraumatic. Normocephalic. EYES: Pupils equal and round. No scleral icterus. No injection or drainage. ENT: No nasal bleeding or discharge. Mucous membranes pink and moist. NECK: Trachea midline. No JVD. CARDIOVASCULAR: Regular rate and rhythm. RESPIRATORY: No accessory muscle use. Clear to auscultation. Breath sounds equal bilaterally. GASTROINTESTINAL: Abdomen soft, non-tender, nondistended. Normoactive bowel sounds MUSCULOSKELETAL: Extremities without clubbing, cyanosis, with 1+ edema NEUROLOGICAL: Awake and alert to person place time situation. No obvious cranial nerve deficits. Motor grossly within normal limits. Five out of 5 muscle strength in the arms and legs. Normal speech. PSYCHIATRIC: Appropriate mood and affect; insight and judgment normal. Results Labs CBC & Chem 7: 08/03/18 13:09 08/03/18 13:09 Imaging Impressions Chest X-Ray 08/03/18 12:58 CONCLUSION: Mild cardiac decompensation Caprini VTE Risk Assessment Caprini VTE Risk Assessment: Moderate/High Risk (score >= 2) VTE Pharmacological Exception Reason: Active bleeding Caprini Risk Assessment Model: Point Value = 1 Point Value = 2 Point Value = 3 Point Value = 5 Age 41-60 Minor surgery BMI > 25 kg/m2 Swollen legs Varicose veins or History of unexplained or recurrent spontaneous Oral contraceptives or hormone replacement Sepsis (< 1 month) Serious lung disease, including pneumonia (< 1 month) Abnormal pulmonary function Acute myocardial infarction Congestive heart failure (< 1 month) History of inflammatory bowel disease Medical patient at bed rest Age 61-74 Arthroscopic surgery Major open surgery (> 45 min) Laparoscopic surgery (> 45 min) Malignancy Confined to bed (> 72 hours) Immobilizing plaster cast Central venous access Age >= 75 History of VTE Family history of VTE Factor V Leiden Prothrombin [id number] Lupus anticoagulant Anticardiolipin antibodies Elevated serum homocysteine Heparin-induced thrombocytopenia Other congenital or acquired thrombophilia Stroke (< 1 month) Elective arthroplasty Hip, pelvis, or leg fracture Acute spinal cord injury (< 1 month) Prophylaxis Regimen: Total Risk Factor Score Risk Level Prophylaxis Regimen 0-1 Low Early ambulation 2 Moderate Order ONE of the following: *Sequential Compression Device (SCD) *Heparin 5000 units SQ BID 3-4 Higher Order ONE of the following medications: *Heparin 5000 units SQ TID *Enoxaparin/Lovenox 40 mg SQ daily (WT < 150 kg, CrCl > 30 mL/min) *Enoxaparin/Lovenox 30 mg SQ daily (WT < 150 kg, CrCl > 10-29 mL/min) *Enoxaparin/Lovenox 30 mg SQ BID (WT < 150 kg, CrCl > 30 mL/min) AND/OR *Sequential Compression Device (SCD) 5 or more Highest Order ONE of the following medications: *Heparin 5000 units SQ TID (Preferred with Epidurals) *Enoxaparin/Lovenox 40 mg SQ daily (WT < 150 kg, CrCl > 30 mL/min) *Enoxaparin/Lovenox 30 mg SQ daily (WT < 150 kg, CrCl > 10-29 mL/min) *Enoxaparin/Lovenox 30 mg SQ BID (WT < 150 kg, CrCl > 30 mL/min) AND *Sequential Compression Device (SCD) Assessment and Plan Plan 63-year-old male with a history of hypertension, chronic kidney disease stage III, diastolic congestive heart failure presents with one week history of generalized weakness and shortness of breath with black tarry stools found to have Acute on chronic anemia due to active blood loss from GI bleed-transfuse 2 units of packed red blood cells, monitor hemoglobin. Suspect upper GI bleedProtonix drip started, monitor hemoglobinGI consultation to evaluate for upper endoscopy. Stop aspirin, hold warfarin, status post vitamin K given in the emergency room Acute kidney injury superimposed on chronic kidney disease stage III due to GI bleed, monitor closely with blood transfusion, normal saline x1 bag, hold Lasix overnight. History of paroxysmal atrial fibrillationcontinue with atenolol, aspirin and warfarin currently on hold Hypertension historyhold home hydralazine due to GI bleed, amlodipine to start in the morning and monitor blood pressure closely Venous stasis dermatitisLac-Hydrin DVT prophylaxiswarfarin on hold due to active GI bleed, SCDs
[2018-08-03] MEDS ORDERED: Sod Chloride 0.9% Inj 1,000 ML IV.CONT SCH (15:25)
[2018-08-03] MEDS: Pantoprazole Inj 80 MG in Sodium Chlor 0.9% Inj 100 ML IV.CONT SCH (15:49)
[2018-08-03] MEDS ORDERED: Sodium Chlor 0.9% Inj 250 ML IV.SIG SCH (16:00)
--- NOTE | 2018-08-03 16:41 | P.CONGI ---
History of Present Illness Consult date: 08/03/18 Consult reason: GI bleed Chief complaint: GI bleed anemia on anticoagulation History of Present Illness: Patient is a 63 year old male with chronic kidney disease, atrial fibrillation on Warfarin that presented to the ED due to dizziness and weakness. He was seen by his PCP for an INR check this morning and instructed to come to the hospital due to his symptoms. He reports 1 day duration of dark and tarry stool. Denies nausea, vomiting, abdominal pain. Normal bowel movements otherwise. He denies history of acid reflux or known GERD. His INR was found to 2.9. Hgb 6.54. He denies use of NSAIDs. Denies alcohol use. <Indy Belcher - Last Filed: 08/03/18 16:42> Review of Systems All other systems reviewed negative except as stated in HPI <Indy Belcher - Last Filed: 08/03/18 16:42> PMFSH - History History Provided By: Patient - Medical History Medical History: Medical History (Last Updated 08/03/18 @ 15:19 by Ilya Agarwal MD) Congestive heart failure Chronic kidney disease Coronary artery disease Hyperlipidemia Hypertension Myocardial infarct Cocaine use - Surgical History Surgical History: Surgical History (Last Updated 08/03/18 @ 15:19 by Ilya Agarwal MD) H/O hernia repair History of appendectomy Previous back surgery S/P CABG x 2 Onset Date: ~05/30/17 - Family History Family History: Family History (Last Updated 08/03/18 @ 15:20 by Ilya Agarwal MD) Mother Heart disease - Tobacco History Second Hand Smoke Exposure: Yes Tobacco Use In Past 30 Days: Yes Smoking Status: Current every day smoker Tobacco Type: Cigarettes Packs Per Day: 0.5 Cigarettes Per Day: 10.0 - Alcohol History How Often Do You Have a Drink Containing Alcohol: Never - Substance Use History Substance History: Past History - Travel History Recent Travel in the [place] Within the Last 8 Weeks: No Recent Travel Out of the Country Within the Last 8 Weeks: No - Immunization History Tetanus Immunization: Unsure <Indy Belcher - Last Filed: 08/03/18 16:42> - Medical History Medical History: Medical History (Last Updated 08/03/18 @ 15:19 by Ilya Agarwal MD) Congestive heart failure Chronic kidney disease Coronary artery disease Hyperlipidemia Hypertension Myocardial infarct Cocaine use - Surgical History Surgical History: Surgical History (Last Updated 08/03/18 @ 15:19 by Ilya Agarwal MD) H/O hernia repair History of appendectomy Previous back surgery S/P CABG x 2 Onset Date: ~05/30/17 - Family History Family History: Family History (Last Updated 08/03/18 @ 15:20 by Ilya Agarwal MD) Mother Heart disease <RadhasumeetSelinaHernan - Last Filed: 08/03/18 17:09> Medications and Allergies Active Medications: Active Medications Acetaminophen (Tylenol) 650 mg PO Q4H PRN PRN Reason: Temp > 100.4 Al Hydroxide/Mg Hydroxide (Milk Of Magnesia Liq) 30 ml PO Q12H PRN PRN Reason: Mild Constipation Amlodipine Besylate (Norvasc) 10 mg PO DAILY [facility] Atenolol (Tenormin) 50 mg PO DAILY [facility] Atorvastatin Calcium (Lipitor) 40 mg PO DAILY [facility] Bisacodyl (Dulcolax Supp) 10 mg RECTAL DAILY PRN PRN Reason: SEVERE CONSITIPATION Gabapentin (Neurontin) 100 mg PO BID [facility] Pantoprazole Sodium 80 mg/ (Sodium Chloride) 100 mls @ 10 mls/hr IV.CONT CONT [facility] Last Admin: 08/03/18 15:19 Dose: 10 mls/hr Pantoprazole Sodium 80 mg/ (Sodium Chloride) 100 mls @ 10 mls/hr IV.CONT Q10H [facility] Last Admin: 08/03/18 15:49 Dose: Not Given Sodium Chloride (Ns Inj) 250 mls @ 15 mls/hr IV.SIG ONCE [facility] Stop: 08/04/18 08:39 Sodium Chloride (Ns Inj) 1,000 mls @ 84 mls/hr IV.CONT .[id number] [facility] Stop: 08/04/18 03:19 Lactic Acid (Lac-Hydrin 12% Lotion) 1 applicatio TOPICAL BID [facility] Lactulose (Lactulose Liq) 30 ml PO DAILY PRN PRN Reason: SEVERE CONSITIPATION Ondansetron HCl (Zofran Inj) 4 mg IV.PUSH Q6H PRN PRN Reason: NAUSEA OR VOMITING Sennosides (Senokot) 17.2 mg PO Q12H PRN PRN Reason: Moderate Constipation Sodium Chloride (Ns Flush) 2 ml IV.FLUSH BID [facility] Sodium Chloride (Ns Flush) 2 ml IV.FLUSH PRN PRN PRN Reason: FLUSH AFTER USING IV ACCESS Tamsulosin HCl (Flomax) 0.4 mg PO DAILY [facility] <Indy Belcher - Last Filed: 08/03/18 16:42> Active Medications: Active Medications Acetaminophen (Tylenol) 650 mg PO Q4H PRN PRN Reason: Temp > 100.4 Al Hydroxide/Mg Hydroxide (Milk Of Magnesia Liq) 30 ml PO Q12H PRN PRN Reason: Mild Constipation Amlodipine Besylate (Norvasc) 10 mg PO DAILY [facility] Atenolol (Tenormin) 50 mg PO DAILY [facility] Atorvastatin Calcium (Lipitor) 40 mg PO DAILY [facility] Bisacodyl (Dulcolax Supp) 10 mg RECTAL DAILY PRN PRN Reason: SEVERE CONSITIPATION Gabapentin (Neurontin) 100 mg PO BID [facility] Pantoprazole Sodium 80 mg/ (Sodium Chloride) 100 mls @ 10 mls/hr IV.CONT CONT [facility] Last Admin: 08/03/18 15:19 Dose: 10 mls/hr Pantoprazole Sodium 80 mg/ (Sodium Chloride) 100 mls @ 10 mls/hr IV.CONT Q10H [facility] Last Admin: 08/03/18 15:49 Dose: Not Given Sodium Chloride (Ns Inj) 250 mls @ 15 mls/hr IV.SIG ONCE [facility] Stop: 08/04/18 08:39 Sodium Chloride (Ns Inj) 1,000 mls @ 84 mls/hr IV.CONT .[id number] [facility] Stop: 08/04/18 03:19 Lactic Acid (Lac-Hydrin 12% Lotion) 1 applicatio TOPICAL BID [facility] Lactulose (Lactulose Liq) 30 ml PO DAILY PRN PRN Reason: SEVERE CONSITIPATION Ondansetron HCl (Zofran Inj) 4 mg IV.PUSH Q6H PRN PRN Reason: NAUSEA OR VOMITING Sennosides (Senokot) 17.2 mg PO Q12H PRN PRN Reason: Moderate Constipation Sodium Chloride (Ns Flush) 2 ml IV.FLUSH BID [facility] Sodium Chloride (Ns Flush) 2 ml IV.FLUSH PRN PRN PRN Reason: FLUSH AFTER USING IV ACCESS Tamsulosin HCl (Flomax) 0.4 mg PO DAILY [facility] <Hernan Pop - Last Filed: 08/03/18 17:09> Allergies Allergy/AdvReac Type Severity Reaction Status Date / Time morphine AdvReac Intermediate Confusion Verified 07/24/17 00:01 Home Medications Medication Instructions Recorded Confirmed Type benzocaine-menthol 1 misty MUCOUS MEMBRANE Q2-4H PRN 06/12/18 08/03/18 History Exam Vital signs: Vital Signs 08/03/18 12:44 08/03/18 13:33 08/03/18 15:18 Temperature 97.7 F Pulse Rate 76 70 70 Respiratory Rate 20 16 Blood Pressure 131/63 143/79 H Pulse Oximetry 96 100 97 Intake & Output 08/02/18 08/03/18 08/03/18 18:59 06:59 18:59 Weight 85.729 kg - Constitutional no acute distress - Routine HEENT Exam Head: Present: normocephalic, atraumatic Eye: Absent: conjunctival icterus ENT: Present: mucous membranes moist - Routine Abdominal Exam Present: soft, normoactive bowel sounds. Absent: tenderness, distended, organomegaly <Indy Belcher - Last Filed: 08/03/18 16:42> Vital signs: Vital Signs 08/03/18 12:44 08/03/18 13:33 08/03/18 15:18 Temperature 97.7 F Pulse Rate 76 70 70 Respiratory Rate 20 16 Blood Pressure 131/63 143/79 H Pulse Oximetry 96 100 97 08/03/18 16:50 Temperature Pulse Rate 68 Respiratory Rate 16 Blood Pressure 151/86 H Pulse Oximetry 96 Intake & Output 08/02/18 08/03/18 08/03/18 18:59 06:59 18:59 Weight 85.729 kg <Hernan Pop - Last Filed: 08/03/18 17:09> Results - Labs CBC & Chem 7: 08/03/18 13:09 08/03/18 13:09 Labs: Laboratory Results - last 24 hr 08/03/18 08/03/18 08/03/18 13:09 13:09 13:09 WBC 4.7 RBC 2.35 L Hgb 6.5 L* Hct 19.8 L* MCV 84.2 MCH 27.6 MCHC 32.8 RDW 20.6 H Plt Count 150 MPV 7.2 Neut % (Auto) 50.9 Lymph % (Auto) 33.8 [place] % (Auto) 10.4 H Eos % (Auto) 4.5 H Baso % (Auto) 0.4 Neut # (Auto) 2.4 Lymph # (Auto) 1.6 [place] # (Auto) 0.5 Eos # (Auto) 0.2 Baso # (Auto) 0.0 WBC Differential . Differential Comment Auto diff final PT INR APTT D-Dimer Quant (PE/DVT) 0.32 Sodium 144 Potassium 4.2 Chloride 112 H Carbon Dioxide 23.2 Anion Gap 9 BUN 63 H Creatinine 3.32 H Estimated GFR 23 L Random Glucose 104 Calcium 7.7 L Total Bilirubin 0.3 AST 20 ALT 15 Alkaline Phosphatase 94 Total Creatine Kinase 91 Troponin I 0.04 B-Natriuretic Peptide Total Protein 6.7 Albumin 2.6 L Urine Color Urine Clarity Urine pH Ur Specific [place] Urine Protein Urine Glucose (UA) Urine Ketones Urine Occult Blood Urine Nitrate Urine Bilirubin Urine Urobilinogen Ur Leukocyte Esterase Urine RBC Urine WBC Micro UA Comment Ur Microscopic Review Urine Culture Comments Blood Type Antibody Screen MTS Gel Crossmatch 08/03/18 08/03/18 08/03/18 13:09 13:09 13:30 WBC RBC Hgb Hct MCV MCH MCHC RDW Plt Count MPV Neut % (Auto) Lymph % (Auto) [place] % (Auto) Eos % (Auto) Baso % (Auto) Neut # (Auto) Lymph # (Auto) [place] # (Auto) Eos # (Auto) Baso # (Auto) WBC Differential Differential Comment PT 29.7 H D INR 2.9 APTT 51.1 H D-Dimer Quant (PE/DVT) Sodium Potassium Chloride Carbon Dioxide Anion Gap BUN Creatinine Estimated GFR Random Glucose Calcium Total Bilirubin AST ALT Alkaline Phosphatase Total Creatine Kinase Troponin I B-Natriuretic Peptide 845 H Total Protein Albumin Urine Color Yellow Urine Clarity Clear Urine pH 5.0 Ur Specific [place] 1.010 Urine Protein 100 H Urine Glucose (UA) Negative Urine Ketones Negative Urine Occult Blood Negative Urine Nitrate Negative Urine Bilirubin Negative Urine Urobilinogen Less than 2 Ur Leukocyte Esterase Negative Urine RBC Less than 1 Urine WBC 1 Micro UA Comment Culture not ind Ur Microscopic Review Not Reportable Urine Culture Comments Culture not ind Blood Type Antibody Screen MTS Gel Crossmatch 08/03/18 14:20 WBC RBC Hgb Hct MCV MCH MCHC RDW Plt Count MPV Neut % (Auto) Lymph % (Auto) [place] % (Auto) Eos % (Auto) Baso % (Auto) Neut # (Auto) Lymph # (Auto) [place] # (Auto) Eos # (Auto) Baso # (Auto) WBC Differential Differential Comment PT INR APTT D-Dimer Quant (PE/DVT) Sodium Potassium Chloride Carbon Dioxide Anion Gap BUN Creatinine Estimated GFR Random Glucose Calcium Total Bilirubin AST ALT Alkaline Phosphatase Total Creatine Kinase Troponin I B-Natriuretic Peptide Total Protein Albumin Urine Color Urine Clarity Urine pH Ur Specific [place] Urine Protein Urine Glucose (UA) Urine Ketones Urine Occult Blood Urine Nitrate Urine Bilirubin Urine Urobilinogen Ur Leukocyte Esterase Urine RBC Urine WBC Micro UA Comment Ur Microscopic Review Urine Culture Comments Blood Type A Positive Antibody Screen Negative MTS Gel Crossmatch See Detail - Imaging Impressions Chest X-Ray 08/03/18 12:58 CONCLUSION: Mild cardiac decompensation <Indy Belcher - Last Filed: 08/03/18 16:42> - Labs CBC & Chem 7: 08/03/18 13:09 08/03/18 13:09 Labs: Laboratory Results - last 24 hr 08/03/18 08/03/18 08/03/18 13:09 13:09 13:09 WBC 4.7 RBC 2.35 L Hgb 6.5 L* Hct 19.8 L* MCV 84.2 MCH 27.6 MCHC 32.8 RDW 20.6 H Plt Count 150 MPV 7.2 Neut % (Auto) 50.9 Lymph % (Auto) 33.8 [place] % (Auto) 10.4 H Eos % (Auto) 4.5 H Baso % (Auto) 0.4 Neut # (Auto) 2.4 Lymph # (Auto) 1.6 [place] # (Auto) 0.5 Eos # (Auto) 0.2 Baso # (Auto) 0.0 WBC Differential . Differential Comment Auto diff final PT INR APTT D-Dimer Quant (PE/DVT) 0.32 Sodium 144 Potassium 4.2 Chloride 112 H Carbon Dioxide 23.2 Anion Gap 9 BUN 63 H Creatinine 3.32 H Estimated GFR 23 L Random Glucose 104 Calcium 7.7 L Total Bilirubin 0.3 AST 20 ALT 15 Alkaline Phosphatase 94 Total Creatine Kinase 91 Troponin I 0.04 B-Natriuretic Peptide Total Protein 6.7 Albumin 2.6 L Urine Color Urine Clarity Urine pH Ur Specific [place] Urine Protein Urine Glucose (UA) Urine Ketones Urine Occult Blood Urine Nitrate Urine Bilirubin Urine Urobilinogen Ur Leukocyte Esterase Urine RBC Urine WBC Micro UA Comment Ur Microscopic Review Urine Culture Comments Blood Type Antibody Screen MTS Gel Crossmatch 08/03/18 08/03/18 08/03/18 13:09 13:09 13:30 WBC RBC Hgb Hct MCV MCH MCHC RDW Plt Count MPV Neut % (Auto) Lymph % (Auto) [place] % (Auto) Eos % (Auto) Baso % (Auto) Neut # (Auto) Lymph # (Auto) [place] # (Auto) Eos # (Auto) Baso # (Auto) WBC Differential Differential Comment PT 29.7 H D INR 2.9 APTT 51.1 H D-Dimer Quant (PE/DVT) Sodium Potassium Chloride Carbon Dioxide Anion Gap BUN Creatinine Estimated GFR Random Glucose Calcium Total Bilirubin AST ALT Alkaline Phosphatase Total Creatine Kinase Troponin I B-Natriuretic Peptide 845 H Total Protein Albumin Urine Color Yellow Urine Clarity Clear Urine pH 5.0 Ur Specific [place] 1.010 Urine Protein 100 H Urine Glucose (UA) Negative Urine Ketones Negative Urine Occult Blood Negative Urine Nitrate Negative Urine Bilirubin Negative Urine Urobilinogen Less than 2 Ur Leukocyte Esterase Negative Urine RBC Less than 1 Urine WBC 1 Micro UA Comment Culture not ind Ur Microscopic Review Not Reportable Urine Culture Comments Culture not ind Blood Type Antibody Screen MTS Gel Crossmatch 08/03/18 14:20 WBC RBC Hgb Hct MCV MCH MCHC RDW Plt Count MPV Neut % (Auto) Lymph % (Auto) [place] % (Auto) Eos % (Auto) Baso % (Auto) Neut # (Auto) Lymph # (Auto) [place] # (Auto) Eos # (Auto) Baso # (Auto) WBC Differential Differential Comment PT INR APTT D-Dimer Quant (PE/DVT) Sodium Potassium Chloride Carbon Dioxide Anion Gap BUN Creatinine Estimated GFR Random Glucose Calcium Total Bilirubin AST ALT Alkaline Phosphatase Total Creatine Kinase Troponin I B-Natriuretic Peptide Total Protein Albumin Urine Color Urine Clarity Urine pH Ur Specific [place] Urine Protein Urine Glucose (UA) Urine Ketones Urine Occult Blood Urine Nitrate Urine Bilirubin Urine Urobilinogen Ur Leukocyte Esterase Urine RBC Urine WBC Micro UA Comment Ur Microscopic Review Urine Culture Comments Blood Type A Positive Antibody Screen Negative MTS Gel Crossmatch See Detail - Imaging Impressions Chest X-Ray 08/03/18 12:58 CONCLUSION: Mild cardiac decompensation <Hernan Pop - Last Filed: 08/03/18 17:09> Assessment and Plan (1) GI bleed Status: Acute Code(s): K92.2 - Gastrointestinal hemorrhage, unspecified - Plan 63 year old male anticoagulated on warfarn, INR 2.9, with melena. Likely upper GI bleed. - EGD scheduled for 08/04 - 2 units ordered in ER - Vitamin K ordered by ER, recheck INR in the morning - NPO aftermidnight - Monitor labs - IV fluids Patient seen and discussed with SIENNA Boyd MS4 <Indy Belcher - Last Filed: 08/03/18 16:42> - Attending Attestation I have seen and examined the patient and reviewed the relevant portions of the chart and discussed the patient's current complaints, results and findings with the HEALTH INFORMATION SPECIALIST and medical student. We have reviewed the therapeutic plan for the patient. I agree with the above assessment and recommendations as documented above. <Hernan Pop - Last Filed: 08/03/18 17:09>
[2018-08-03] MEDS: Lactic Acid (Ammonium Lactate) 12% Lotion 225 GM Bottle TOPICAL SCH (20:19)
[2018-08-03] MEDS: Gabapentin 100 MG Capsule PO SCH (20:19)
[2018-08-04 04:14] LABS: Baso % (Auto) 0.6 % (0.0-2.0); Eos # (Auto) 0.2 th/mm3 (0.0-0.4); Eos % (Auto) 4.2 % (0.0-4.0); Hematocrit 25.9 % (39.0-51.0); Hemoglobin 8.6 gm/dL (13.0-17.0); Lymph # (Auto) 2.1 th/mm3 (1.0-4.8); Lymph % (Auto) 36.7 % (9.0-44.0); Mean Corpuscular HGB Conc 33.2 % (32.0-36.0); Mean Corpuscular Volume 84.2 fL (80.0-100.0); Mono # (Auto) 0.6 th/mm3 (0.0-0.9); Mono % (Auto) 10.5 % (0.0-8.0); Neut # (Auto) 2.7 th/mm3 (1.8-7.7); Platelet Count 170 th/mm3 (150-450); Red Blood Count 3.08 mil/mm3 (4.50-5.90); Red Cell Distribution Width 19.3 % (11.6-17.2); White Blood Count 5.7 th/mm3 (4.0-11.0)
[2018-08-04 04:24] LABS: INR 2.6 Ratio; Prothrombin Time 25.9 sec (9.8-11.6)
[2018-08-04] MEDS: Pantoprazole Inj 80 MG in Sodium Chlor 0.9% Inj 100 ML IV.CONT SCH ×3 (04:46→20:21)
[2018-08-04 04:55] LABS: Calcium 7.8 mg/dL (8.5-10.1); Carbon Dioxide 24.7 meq/L (21.0-32.0); Potassium 4.2 meq/L (3.5-5.1)
[2018-08-04] MEDS: Gabapentin 100 MG Capsule PO SCH ×2 (09:12→20:20)
[2018-08-04] MEDS: Atenolol 50 MG Tablet PO SCH (09:12)
[2018-08-04] MEDS: amLODIPine 10 MG Tablet PO SCH (09:12)
[2018-08-04] MEDS ORDERED: Sodium Chlor 0.9% Inj 500 ML IV.CONT ONE (09:15)
[2018-08-04] MEDS ORDERED: Chlorhexidine Gluconate 2% 1 Pack (2 Cloths) TOPICAL ONE (09:15)
[2018-08-04] MEDS: Lactic Acid (Ammonium Lactate) 12% Lotion 225 GM Bottle TOPICAL SCH ×2 (09:16→20:21)
--- NOTE | 2018-08-04 10:17 | P.PNGI ---
Subjective Interval history: Pt is sitting in bed, not very happy, EGD cancelled due to high INR, wants to eat. Had one black stools this am. < - Filed: 08/04/18 10:14> Physical Exam Vital signs: Vital Signs 08/03/18 12:44 08/03/18 13:33 08/03/18 15:18 Temperature 97.7 F Pulse Rate 76 70 70 Respiratory Rate 20 16 Blood Pressure 131/63 143/79 H Pulse Oximetry 96 100 97 08/03/18 16:50 08/03/18 17:20 08/03/18 20:23 Temperature 98.6 F 97.8 F Pulse Rate 68 69 66 Respiratory Rate 16 19 18 Blood Pressure 151/86 H 158/85 H 166/81 H Pulse Oximetry 96 95 100 08/03/18 20:44 08/03/18 23:55 08/04/18 00:00 Temperature 97.9 F 98.0 F 98.0 F Pulse Rate 69 68 68 Respiratory Rate 20 18 18 Blood Pressure 150/84 H 144/78 H 144/78 H Pulse Oximetry 99 100 100 08/04/18 04:00 Temperature 98.1 F Pulse Rate 67 Respiratory Rate 18 Blood Pressure 132/71 Pulse Oximetry 94 L Intake & Output 08/03/18 08/04/18 08/04/18 18:59 06:59 18:59 Intake Total 0 / 0 1020 / 1020 Output Total 500 / 500 625 / 625 450 / 450 Balance -500 / -500 395 / 395 -450 / -450 Weight 93.8 kg 93.9 kg Intake: Oral 220 / 220 Intake (Blood Product) Amt 0 / 0 800 / 800 Rbc As-3 Leukoreduced Unit 0 / 0 400 / 400 [id number] Rbc As-3 Leukoreduced Unit 400 / 400 [id number] Output: Urine 500 / 500 625 / 625 450 / 450 Other: Weight On Admission 93.8 kg - Constitutional no acute distress - Routine HEENT Exam Head: Present: normocephalic - Routine Respiratory Exam Present: CTA bilaterally - Routine Cardiovascular Exam Present: RRR - Routine Abdominal Exam Present: soft, normoactive bowel sounds. Absent: tenderness - Routine Skin Exam Present: intact, dry. Absent: jaundice - Routine Neurological Exam Present: alert, oriented X3 <Fernando Mancia - Last Filed: 08/04/18 10:14> Vital signs: Vital Signs 08/03/18 12:44 08/03/18 13:33 08/03/18 15:18 Temperature 97.7 F Pulse Rate 76 70 70 Respiratory Rate 20 16 Blood Pressure 131/63 143/79 H Pulse Oximetry 96 100 97 08/03/18 16:50 08/03/18 17:20 08/03/18 20:23 Temperature 98.6 F 97.8 F Pulse Rate 68 69 66 Respiratory Rate 16 19 18 Blood Pressure 151/86 H 158/85 H 166/81 H Pulse Oximetry 96 95 100 08/03/18 20:44 08/03/18 23:55 08/04/18 00:00 Temperature 97.9 F 98.0 F 98.0 F Pulse Rate 69 68 68 Respiratory Rate 20 18 18 Blood Pressure 150/84 H 144/78 H 144/78 H Pulse Oximetry 99 100 100 08/04/18 04:00 08/04/18 10:19 08/04/18 11:43 Temperature 98.1 F 98.5 F 97.3 F L Pulse Rate 67 68 17 L Respiratory Rate 18 17 17 Blood Pressure 132/71 138/75 142/72 H Pulse Oximetry 94 L 90 L 92 L 08/04/18 11:50 Temperature 97.8 F Pulse Rate 64 Respiratory Rate 18 Blood Pressure 138/76 Pulse Oximetry 96 Intake & Output 08/03/18 08/04/18 08/04/18 18:59 06:59 18:59 Intake Total 0 / 0 1020 / 1020 Output Total 500 / 500 625 / 625 450 / 450 Balance -500 / -500 395 / 395 -450 / -450 Weight 93.8 kg 93.9 kg Intake: Oral 220 / 220 Intake (Blood Product) Amt 0 / 0 800 / 800 Rbc As-3 Leukoreduced Unit 0 / 0 400 / 400 [id number] Rbc As-3 Leukoreduced Unit 400 / 400 [id number] Output: Urine 500 / 500 625 / 625 450 / 450 Other: Weight On Admission 93.8 kg <Hernan Pop - Last Filed: 08/04/18 11:53> Results - Labs CBC & Chem 7: 08/04/18 03:56 08/04/18 03:56 Laboratory Results - last 24 hr 08/03/18 08/03/18 08/03/18 13:09 13:09 13:09 WBC 4.7 RBC 2.35 L Hgb 6.5 L* Hct 19.8 L* MCV 84.2 MCH 27.6 MCHC 32.8 RDW 20.6 H Plt Count 150 MPV 7.2 Neut % (Auto) 50.9 Lymph % (Auto) 33.8 [place] % (Auto) 10.4 H Eos % (Auto) 4.5 H Baso % (Auto) 0.4 Neut # (Auto) 2.4 Lymph # (Auto) 1.6 [place] # (Auto) 0.5 Eos # (Auto) 0.2 Baso # (Auto) 0.0 WBC Differential . Differential Comment Auto diff final PT INR APTT D-Dimer Quant (PE/DVT) 0.32 Sodium 144 Potassium 4.2 Chloride 112 H Carbon Dioxide 23.2 Anion Gap 9 BUN 63 H Creatinine 3.32 H Estimated GFR 23 L Random Glucose 104 Calcium 7.7 L Total Bilirubin 0.3 AST 20 ALT 15 Alkaline Phosphatase 94 Total Creatine Kinase 91 Troponin I 0.04 B-Natriuretic Peptide Total Protein 6.7 Albumin 2.6 L Urine Color Urine Clarity Urine pH Ur Specific [place] Urine Protein Urine Glucose (UA) Urine Ketones Urine Occult Blood Urine Nitrate Urine Bilirubin Urine Urobilinogen Ur Leukocyte Esterase Urine RBC Urine WBC Micro UA Comment Ur Microscopic Review Urine Culture Comments Blood Type Antibody Screen MTS Gel Crossmatch 08/03/18 08/03/18 08/03/18 13:09 13:09 13:30 WBC RBC Hgb Hct MCV MCH MCHC RDW Plt Count MPV Neut % (Auto) Lymph % (Auto) [place] % (Auto) Eos % (Auto) Baso % (Auto) Neut # (Auto) Lymph # (Auto) [place] # (Auto) Eos # (Auto) Baso # (Auto) WBC Differential Differential Comment PT 29.7 H D INR 2.9 APTT 51.1 H D-Dimer Quant (PE/DVT) Sodium Potassium Chloride Carbon Dioxide Anion Gap BUN Creatinine Estimated GFR Random Glucose Calcium Total Bilirubin AST ALT Alkaline Phosphatase Total Creatine Kinase Troponin I B-Natriuretic Peptide 845 H Total Protein Albumin Urine Color Yellow Urine Clarity Clear Urine pH 5.0 Ur Specific [place] 1.010 Urine Protein 100 H Urine Glucose (UA) Negative Urine Ketones Negative Urine Occult Blood Negative Urine Nitrate Negative Urine Bilirubin Negative Urine Urobilinogen Less than 2 Ur Leukocyte Esterase Negative Urine RBC Less than 1 Urine WBC 1 Micro UA Comment Culture not ind Ur Microscopic Review Not Reportable Urine Culture Comments Culture not ind Blood Type Antibody Screen MTS Gel Crossmatch 08/03/18 08/03/18 08/04/18 14:20 15:04 03:56 WBC 5.7 RBC 3.08 L Hgb 8.6 L D Hct 25.9 L MCV 84.2 MCH 28.0 MCHC 33.2 RDW 19.3 H Plt Count 170 MPV 7.0 Neut % (Auto) 48.0 Lymph % (Auto) 36.7 [place] % (Auto) 10.5 H Eos % (Auto) 4.2 H Baso % (Auto) 0.6 Neut # (Auto) 2.7 Lymph # (Auto) 2.1 [place] # (Auto) 0.6 Eos # (Auto) 0.2 Baso # (Auto) 0.0 WBC Differential . Differential Comment Auto diff final PT INR APTT D-Dimer Quant (PE/DVT) Sodium Potassium Chloride Carbon Dioxide Anion Gap BUN Creatinine Estimated GFR Random Glucose Calcium Total Bilirubin AST ALT Alkaline Phosphatase Total Creatine Kinase Troponin I B-Natriuretic Peptide Total Protein Albumin Urine Color Urine Clarity Urine pH Ur Specific [place] Urine Protein Urine Glucose (UA) Urine Ketones Urine Occult Blood Urine Nitrate Urine Bilirubin Urine Urobilinogen Ur Leukocyte Esterase Urine RBC Urine WBC Micro UA Comment Ur Microscopic Review Urine Culture Comments Blood Type A Positive Antibody Screen Negative MTS Gel Crossmatch See Detail See Detail 08/04/18 08/04/18 03:56 03:56 WBC RBC Hgb Hct MCV MCH MCHC RDW Plt Count MPV Neut % (Auto) Lymph % (Auto) [place] % (Auto) Eos % (Auto) Baso % (Auto) Neut # (Auto) Lymph # (Auto) [place] # (Auto) Eos # (Auto) Baso # (Auto) WBC Differential Differential Comment PT 25.9 H INR 2.6 APTT D-Dimer Quant (PE/DVT) Sodium 146 H Potassium 4.2 Chloride 113 H Carbon Dioxide 24.7 Anion Gap 8 BUN 58 H Creatinine 3.19 H Estimated GFR 24 L Random Glucose 85 Calcium 7.8 L Total Bilirubin AST ALT Alkaline Phosphatase Total Creatine Kinase Troponin I B-Natriuretic Peptide Total Protein Albumin Urine Color Urine Clarity Urine pH Ur Specific [place] Urine Protein Urine Glucose (UA) Urine Ketones Urine Occult Blood Urine Nitrate Urine Bilirubin Urine Urobilinogen Ur Leukocyte Esterase Urine RBC Urine WBC Micro UA Comment Ur Microscopic Review Urine Culture Comments Blood Type Antibody Screen MTS Gel Crossmatch - Imaging Impressions Chest X-Ray 08/03/18 12:58 CONCLUSION: Mild cardiac decompensation <Fernando Mancia - Last Filed: 08/04/18 10:14> - Labs CBC & Chem 7: 08/04/18 03:56 08/04/18 03:56 Laboratory Results - last 24 hr 08/03/18 08/03/18 08/03/18 13:09 13:09 13:09 WBC 4.7 RBC 2.35 L Hgb 6.5 L* Hct 19.8 L* MCV 84.2 MCH 27.6 MCHC 32.8 RDW 20.6 H Plt Count 150 MPV 7.2 Neut % (Auto) 50.9 Lymph % (Auto) 33.8 [place] % (Auto) 10.4 H Eos % (Auto) 4.5 H Baso % (Auto) 0.4 Neut # (Auto) 2.4 Lymph # (Auto) 1.6 [place] # (Auto) 0.5 Eos # (Auto) 0.2 Baso # (Auto) 0.0 WBC Differential . Differential Comment Auto diff final PT INR APTT D-Dimer Quant (PE/DVT) 0.32 Sodium 144 Potassium 4.2 Chloride 112 H Carbon Dioxide 23.2 Anion Gap 9 BUN 63 H Creatinine 3.32 H Estimated GFR 23 L Random Glucose 104 Calcium 7.7 L Total Bilirubin 0.3 AST 20 ALT 15 Alkaline Phosphatase 94 Total Creatine Kinase 91 Troponin I 0.04 B-Natriuretic Peptide Total Protein 6.7 Albumin 2.6 L Urine Color Urine Clarity Urine pH Ur Specific [place] Urine Protein Urine Glucose (UA) Urine Ketones Urine Occult Blood Urine Nitrate Urine Bilirubin Urine Urobilinogen Ur Leukocyte Esterase Urine RBC Urine WBC Micro UA Comment Ur Microscopic Review Urine Culture Comments Blood Type Antibody Screen MTS Gel Crossmatch Blood Bank Comment 08/03/18 08/03/18 08/03/18 13:09 13:09 13:30 WBC RBC Hgb Hct MCV MCH MCHC RDW Plt Count MPV Neut % (Auto) Lymph % (Auto) [place] % (Auto) Eos % (Auto) Baso % (Auto) Neut # (Auto) Lymph # (Auto) [place] # (Auto) Eos # (Auto) Baso # (Auto) WBC Differential Differential Comment PT 29.7 H D INR 2.9 APTT 51.1 H D-Dimer Quant (PE/DVT) Sodium Potassium Chloride Carbon Dioxide Anion Gap BUN Creatinine Estimated GFR Random Glucose Calcium Total Bilirubin AST ALT Alkaline Phosphatase Total Creatine Kinase Troponin I B-Natriuretic Peptide 845 H Total Protein Albumin Urine Color Yellow Urine Clarity Clear Urine pH 5.0 Ur Specific [place] 1.010 Urine Protein 100 H Urine Glucose (UA) Negative Urine Ketones Negative Urine Occult Blood Negative Urine Nitrate Negative Urine Bilirubin Negative Urine Urobilinogen Less than 2 Ur Leukocyte Esterase Negative Urine RBC Less than 1 Urine WBC 1 Micro UA Comment Culture not ind Ur Microscopic Review Not Reportable Urine Culture Comments Culture not ind Blood Type Antibody Screen MTS Gel Crossmatch Blood Bank Comment 08/03/18 08/03/18 08/04/18 14:20 15:04 03:56 WBC 5.7 RBC 3.08 L Hgb 8.6 L D Hct 25.9 L MCV 84.2 MCH 28.0 MCHC 33.2 RDW 19.3 H Plt Count 170 MPV 7.0 Neut % (Auto) 48.0 Lymph % (Auto) 36.7 [place] % (Auto) 10.5 H Eos % (Auto) 4.2 H Baso % (Auto) 0.6 Neut # (Auto) 2.7 Lymph # (Auto) 2.1 [place] # (Auto) 0.6 Eos # (Auto) 0.2 Baso # (Auto) 0.0 WBC Differential . Differential Comment Auto diff final PT INR APTT D-Dimer Quant (PE/DVT) Sodium Potassium Chloride Carbon Dioxide Anion Gap BUN Creatinine Estimated GFR Random Glucose Calcium Total Bilirubin AST ALT Alkaline Phosphatase Total Creatine Kinase Troponin I B-Natriuretic Peptide Total Protein Albumin Urine Color Urine Clarity Urine pH Ur Specific [place] Urine Protein Urine Glucose (UA) Urine Ketones Urine Occult Blood Urine Nitrate Urine Bilirubin Urine Urobilinogen Ur Leukocyte Esterase Urine RBC Urine WBC Micro UA Comment Ur Microscopic Review Urine Culture Comments Blood Type A Positive Antibody Screen Negative MTS Gel Crossmatch See Detail See Detail Blood Bank Comment 08/04/18 08/04/18 08/04/18 03:56 03:56 10:12 WBC RBC Hgb Hct MCV MCH MCHC RDW Plt Count MPV Neut % (Auto) Lymph % (Auto) [place] % (Auto) Eos % (Auto) Baso % (Auto) Neut # (Auto) Lymph # (Auto) [place] # (Auto) Eos # (Auto) Baso # (Auto) WBC Differential Differential Comment PT 25.9 H INR 2.6 APTT D-Dimer Quant (PE/DVT) Sodium 146 H Potassium 4.2 Chloride 113 H Carbon Dioxide 24.7 Anion Gap 8 BUN 58 H Creatinine 3.19 H Estimated GFR 24 L Random Glucose 85 Calcium 7.8 L Total Bilirubin AST ALT Alkaline Phosphatase Total Creatine Kinase Troponin I B-Natriuretic Peptide Total Protein Albumin Urine Color Urine Clarity Urine pH Ur Specific [place] Urine Protein Urine Glucose (UA) Urine Ketones Urine Occult Blood Urine Nitrate Urine Bilirubin Urine Urobilinogen Ur Leukocyte Esterase Urine RBC Urine WBC Micro UA Comment Ur Microscopic Review Urine Culture Comments Blood Type Antibody Screen MTS Gel Crossmatch Blood Bank Comment - Imaging Impressions Chest X-Ray 08/03/18 12:58 CONCLUSION: Mild cardiac decompensation <Hernan Pop - Last Filed: 08/04/18 11:53> Assessment and Plan - Plan Melena- 63 year old male anticoagulated on warfarin, INR 2.9, with melena. Likely upper GI bleed. EGD cancelled today due to high INR Plan: - Healthy diet - 2 FFP, check INR if still high, will give 2 more - EGD tomorrow - Monitor for bleeding - NPO after midnight - Monitor labs - IV fluids Patient seen and discussed with Dr Pop <Fernando Mancia - Last Filed: 08/04/18 10:14> - Attending Attestation I have seen and examined the patient and reviewed the relevant portions of the chart and discussed the patient's current complaints, results and findings with the FLEET SERVICE CLERK. We have reviewed the therapeutic plan for the patient. I agree with the above assessment and recommendations as documented above. <Hernan Pop - Last Filed: 08/04/18 11:53>
[2018-08-04] MEDS ORDERED: Sodium Chlor 0.9% Inj 250 ML IV.SIG SCH (11:00)
--- NOTE | 2018-08-04 11:23 | P.PNIM ---
Subjective Interval history: Reports that his procedure was canceled this morning. He wants to eat. He is hungry. He denies any abdominal pain. He has not had nausea or vomiting blood. He reports no shortness of breath or chest pain. Physical Exam Vital signs: Vital Signs 08/03/18 12:44 08/03/18 13:33 08/03/18 15:18 Temperature 97.7 F Pulse Rate 76 70 70 Respiratory Rate 20 16 Blood Pressure 131/63 143/79 H Pulse Oximetry 96 100 97 08/03/18 16:50 08/03/18 17:20 08/03/18 20:23 Temperature 98.6 F 97.8 F Pulse Rate 68 69 66 Respiratory Rate 16 19 18 Blood Pressure 151/86 H 158/85 H 166/81 H Pulse Oximetry 96 95 100 08/03/18 20:44 08/03/18 23:55 08/04/18 00:00 Temperature 97.9 F 98.0 F 98.0 F Pulse Rate 69 68 68 Respiratory Rate 20 18 18 Blood Pressure 150/84 H 144/78 H 144/78 H Pulse Oximetry 99 100 100 08/04/18 04:00 08/04/18 10:19 Temperature 98.1 F 98.5 F Pulse Rate 67 68 Respiratory Rate 18 17 Blood Pressure 132/71 138/75 Pulse Oximetry 94 L 90 L Intake & Output 08/03/18 08/04/18 08/04/18 18:59 06:59 18:59 Intake Total 0 / 0 1020 / 1020 Output Total 500 / 500 625 / 625 450 / 450 Balance -500 / -500 395 / 395 -450 / -450 Weight 93.8 kg 93.9 kg Intake: Oral 220 / 220 Intake (Blood Product) Amt 0 / 0 800 / 800 Rbc As-3 Leukoreduced Unit 0 / 0 400 / 400 [id number] Rbc As-3 Leukoreduced Unit 400 / 400 [id number] Output: Urine 500 / 500 625 / 625 450 / 450 Other: Weight On Admission 93.8 kg Narrative: GENERAL: Well-nourished well-developed male no acute distress CARDIOVASCULAR: Regular rate and rhythm. RESPIRATORY: Few right basilar crackles GASTROINTESTINAL: Abdomen soft, non-tender, nondistended. Normoactive bowel sounds MUSCULOSKELETAL: Extremities without clubbing, cyanosis, with 1+ edema NEUROLOGICAL: Awake and alert to person place time situation. No obvious cranial nerve deficits. Motor grossly within normal limits. Five out of 5 muscle strength in the arms and legs. Normal speech. Results Labs CBC & Chem 7: 08/04/18 03:56 08/04/18 03:56 Imaging Imaging: Impressions Chest X-Ray 08/03/18 12:58 CONCLUSION: Mild cardiac decompensation Assessment and Plan (1) GI bleed: Code(s): K92.2 - Gastrointestinal hemorrhage, unspecified Status: Acute Plan 63-year-old male with a history of hypertension, chronic kidney disease stage III, diastolic congestive heart failure presents with one week history of generalized weakness and shortness of breath with black tarry stools found to have Acute on chronic anemia due to active blood loss from GI bleed-transfuse 2 units of packed red blood cells 08/03, monitor hemoglobin. Suspect upper GI bleedProtonix drip started, monitor hemoglobin upper endoscopy to be rescheduled the morning due to continued elevated INR. Stop aspirin, hold warfarin, status post vitamin K given in the emergency room GI ordered FFP today. Acute kidney injury superimposed on chronic kidney disease stage III due to GI bleed, monitor closely with blood transfusion,improved overnight. Will need to restart Lasix to prevent fluid overload Chronic diastolic congestive heart failureresume Lasix and monitor for fluid overload. History of paroxysmal atrial fibrillationcontinue with atenolol, aspirin and warfarin currently on hold due to GI bleed. Hypertension historyhold home hydralazine due to GI bleed, amlodipine to start this morning and monitor blood pressure closely Venous stasis dermatitisLac-Hydrin lotion to area. DVT prophylaxiswarfarin on hold due to active GI bleed, SCDs Progress Note: Quality VTE Deep Vein Thrombosis/Pulmonary Embolism Present on Admission: No _ (1) GI bleed Qualifiers: GI bleed type/associated pathology: unspecified gastrointestinal hemorrhage type Gastritis type: Qualified Code(s): K92.2 - Gastrointestinal hemorrhage, unspecified
--- NOTE | 2018-08-04 11:40 | ECG ---
Date Performed: 08/03/2018 Time Performed: 13:44:27 PTAGE: 63 years EKG: Sinus rhythm POSSIBLE LEFT ATRIAL ENLARGEMENT POSSIBLE RIGHT VENTRICULAR CONDUCTION DELAY ST DEVIATION AND MODERA TE T-WAVE ABNORMALITY, CONSIDER LATERAL ISCHEMIA ABNORMAL ECG PREVIOUS TRACING : 07/06/2018 22.50 DOCTOR: Marcell Covington Interpretating Date/Time 08/04/2018 11:32:14
[2018-08-04] MEDS: Furosemide 40 MG Tablet PO SCH (13:04)
[2018-08-04 19:45] LABS: INR 1.6 Ratio; Prothrombin Time 15.7 sec (9.8-11.6)
[2018-08-05] MEDS: Pantoprazole Inj 80 MG in Sodium Chlor 0.9% Inj 100 ML IV.CONT SCH ×3 (05:38→16:46)
[2018-08-05 06:25] LABS: Baso % (Auto) 0.5 % (0.0-2.0); Eos # (Auto) 0.2 th/mm3 (0.0-0.4); Eos % (Auto) 3.4 % (0.0-4.0); Hematocrit 22.7 % (39.0-51.0); Hemoglobin 7.8 gm/dL (13.0-17.0); Lymph # (Auto) 1.7 th/mm3 (1.0-4.8); Lymph % (Auto) 30.3 % (9.0-44.0); Mean Corpuscular HGB Conc 34.4 % (32.0-36.0); Mean Corpuscular Hemoglobin 29.5 pg (27.0-34.0); Mean Corpuscular Volume 85.7 fL (80.0-100.0); Mono # (Auto) 0.5 th/mm3 (0.0-0.9); Neut # (Auto) 3.1 th/mm3 (1.8-7.7); Neut % (Auto) 55.8 % (16.0-70.0); Platelet Count 154 th/mm3 (150-450); Red Blood Count 2.65 mil/mm3 (4.50-5.90); Red Cell Distribution Width 19.3 % (11.6-17.2); White Blood Count 5.5 th/mm3 (4.0-11.0)
[2018-08-05 06:33] LABS: INR 1.4 Ratio; Prothrombin Time 14.4 sec (9.8-11.6)
[2018-08-05 07:22] LABS: Calcium 7.6 mg/dL (8.5-10.1); Potassium 4.7 meq/L (3.5-5.1)
[2018-08-05] MEDS: Furosemide 40 MG Tablet PO SCH (09:22)
[2018-08-05] MEDS: Gabapentin 100 MG Capsule PO SCH ×2 (09:22→20:00)
[2018-08-05] MEDS: amLODIPine 10 MG Tablet PO SCH (09:22)
[2018-08-05] MEDS: Lactic Acid (Ammonium Lactate) 12% Lotion 225 GM Bottle TOPICAL SCH ×2 (09:23→19:59)
[2018-08-05] MEDS: Atenolol 50 MG Tablet PO SCH (09:23)
--- NOTE | 2018-08-05 12:31 | P.PNIM ---
Subjective Interval history: Patient reports he wants to eat. Understands he is going for procedure today. He reports no bowel movements. Reports no nausea vomiting or any abdominal pain. Physical Exam Vital signs: Vital Signs 08/04/18 15:19 08/04/18 15:39 08/04/18 16:00 Temperature 98.6 F 98.0 F 98.4 F Pulse Rate 70 67 64 Respiratory Rate 18 18 17 Blood Pressure 128/68 147/81 H 144/82 H Pulse Oximetry 97 99 98 08/04/18 20:00 08/05/18 00:00 08/05/18 04:00 Temperature 98.3 F 98.3 F 99 F Pulse Rate 71 70 71 Respiratory Rate 22 24 18 Blood Pressure 141/60 H 136/81 151/78 H Pulse Oximetry 98 95 96 08/05/18 08:00 Temperature 98 F Pulse Rate 71 Respiratory Rate 18 Blood Pressure 160/91 H Pulse Oximetry 94 L Intake & Output 08/04/18 08/05/18 08/05/18 18:59 06:59 18:59 Intake Total 420 / 420 819 / 819 Output Total 1450 / 1450 1000 / 1000 Balance -1030 / -1030 -181 / -181 Weight 93.2 kg Intake: IV 100 / 100 160 / 160 Protonix Inj 80 MG In NS Inj 100 / 100 100 / 100 100 ML @ 10 mls/hr IV.CONT Q10H MIGUEL Rx#:[id number] NS Inj 250 ML @ 15 mls/hr IV. 30 / 30 SIG ONCE MIGUEL Rx#:[id number] Oral 320 / 320 Other 70 / 70 Intake (Blood Product) Amt 0 / 0 Plasma Thawed 5 Day Cp2d Unit 0 / 0 [id number] Plasma Thawed 5 Day Cp2d Unit 0 / 0 [id number] Mass Transfusion Protocol 589 / 589 Output: Urine 1450 / 1450 1000 / 1000 Narrative: GENERAL: Well-nourished well-developed male no acute distress CARDIOVASCULAR: Regular rate and rhythm. RESPIRATORY: Relatively clear to auscultation bilaterally GASTROINTESTINAL: Abdomen soft, non-tender, nondistended. Normoactive bowel sounds MUSCULOSKELETAL: Extremities without clubbing, cyanosis, with 1+ edema NEUROLOGICAL: Awake and alert to person place time situation. Able to get up independently from bed to chair Results Labs CBC & Chem 7: 08/05/18 04:59 08/05/18 04:59 Assessment and Plan (1) GI bleed: Code(s): K92.2 - Gastrointestinal hemorrhage, unspecified Status: Acute Plan 63-year-old male with a history of hypertension, chronic kidney disease stage III, diastolic congestive heart failure presents with one week history of generalized weakness and shortness of breath with black tarry stools found to have Acute on chronic anemia due to active blood loss from GI bleed-transfuse 2 units of packed red blood cells 08/03, hemoglobin with mild drop to 7.8 today, will continue monitor and transfuse as needed but continues to drop. Suspect upper GI bleedProtonix drip started, monitor hemoglobin upper endoscopy today with GI. Stop aspirin, hold warfarin, status post vitamin K given in the emergency room, GI order FFP given yesterday Acute kidney injury superimposed on chronic kidney disease stage III due to GI bleed, monitor closely with blood transfusion, Will need to restart Lasix to prevent fluid overload, avoid nephrotoxins. Chronic diastolic congestive heart failureresume Lasix and monitor for fluid overload. History of paroxysmal atrial fibrillationcontinue with atenolol, aspirin and warfarin currently on hold due to GI bleed. Hypertension historyrestart home hydralazine and amlodipine, Venous stasis dermatitisLac-Hydrin lotion to area. DVT prophylaxiswarfarin on hold due to active GI bleed, SCDs Progress Note: Quality VTE Deep Vein Thrombosis/Pulmonary Embolism Present on Admission: No _ (1) GI bleed Qualifiers: GI bleed type/associated pathology: unspecified gastrointestinal hemorrhage type Gastritis type: Qualified Code(s): K92.2 - Gastrointestinal hemorrhage, unspecified
[2018-08-05] MEDS ORDERED: Sodium Chlor 0.9% Inj 250 ML IV.CONT ONE (12:51)
[2018-08-05] MEDS ORDERED: Lidocaine PF 1% Inj 5 ML Syringe OTHER ONE (12:51)
--- NOTE | 2018-08-05 13:17 | P.PCN ---
Date of procedure: 08/05/18 Pre-op diagnosis: Melena, coagulopathy Post-op diagnosis: other (Chronic gastritis) Procedure: INDICATION: Melena with coagulopathy PROCEDURE PERFORMED: upper endoscopy with biopsy The nature and risks of the procedure were explained to the patient. The risk of aspiration, perforation, bleeding, phlebitis and were explained to the patient. After informing the patient about procedure and possible complications consent was signed. history and physical were updated. ANESTHESIA: Adequate sedation was performed by anesthesia provider. PROCEDURE: Upper Endoscopy, the scope was placed in the mouth advanced under video guide to the second portion of the duodenum. The scope was then slowly withdrawn through the stomach and retro-flexion was performed to examine the cardia, the scope was then withdrawn through the esophagus with good views obtained throughout. The scope was then withdrawn out of the mouth without any immediate complications. FINDIINGS: Esophagus: Z line found at 39 cm normal esophageal mucosa upper lower esophageal sphincter no esophagitis and no esophageal varices seen. No stigmata of bleeding. Stomach: Direct and retroflexed views were obtained. Normal mucosa with some thickening and atrophy in the antrum consistent with a chronic gastritis. No ulcerations or erosions. Retroflex examination was a normal cardia no hiatal hernia seen. No stigmata of recent bleeding no blood seen in the stomach. Biopsies obtained from the gastric antrum for histopathology Duodenum: Normal bulb and second portion. No ulceration or erosion. No blood seen IMPRESSION: Chronic gastritis Most likely melena due to upper GI bleed secondary to coagulopathy. Avoid the use of excessive anticoagulation COMPLICATIONS: None BLOOD LOSS: None RECOMMENDATIONS: 1- Supportive care 2- ok to transfer to recovery area then discharge per protocol 3-patient is okay to discharge home from a gastroenterology point of view. Just avoid the use of nonsteroidal anti-inflammatory drugs and over anticoagulation. 4- high-fiber diet 5- EGD can be repeated patient has continued bleeding. 6-treatment with proton pump inhibitor for 6-8 weeks would be prudent. Anesthesia: MAC Surgeon: Hernan Pop Pathology: other (gastric antrum) Condition: stable Disposition: floor
[2018-08-05] MEDS: hydrALAZINE 50 MG Tablet PO SCH ×2 (15:39→18:16)
[2018-08-05] MEDS ORDERED: Melatonin 5 MG Tablet PO ONE (22:08)
[2018-08-05 23:02] LABS: Baso % (Auto) 0.4 % (0.0-2.0); Eos # (Auto) 0.1 th/mm3 (0.0-0.4); Eos % (Auto) 1.2 % (0.0-4.0); Hemoglobin 9.7 gm/dL (13.0-17.0); Lymph # (Auto) 1.9 th/mm3 (1.0-4.8); Lymph % (Auto) 24.6 % (9.0-44.0); Mean Corpuscular HGB Conc 33.3 % (32.0-36.0); Mean Corpuscular Hemoglobin 27.8 pg (27.0-34.0); Mean Corpuscular Volume 83.4 fL (80.0-100.0); Mono # (Auto) 0.8 th/mm3 (0.0-0.9); Mono % (Auto) 10.3 % (0.0-8.0); Neut # (Auto) 4.8 th/mm3 (1.8-7.7); Neut % (Auto) 63.5 % (16.0-70.0); Platelet Count 158 th/mm3 (150-450); Red Blood Count 3.47 mil/mm3 (4.50-5.90); Red Cell Distribution Width 18.5 % (11.6-17.2); White Blood Count 7.6 th/mm3 (4.0-11.0)
[2018-08-05 23:12] LABS: Activated Partial Thrombo Time 37.3 sec (23.4-31.7); INR 1.3 Ratio
[2018-08-05 23:15] LABS: Alanine Aminotransferase 14 U/L (12-78); Albumin 2.7 g/dL (3.4-5.0); Anion Gap 10 meq/L (5-15); Aspartate Aminotransferase 15 U/L (15-37); Blood Urea Nitrogen 50 mg/dL (7-18); Calcium 7.8 mg/dL (8.5-10.1); Carbon Dioxide 22.9 meq/L (21.0-32.0); Chloride 110 meq/L (98-107); Glomerular Filtration Rate 21 mL/min (>89); Glucose,Random 152 mg/dL (74-106); Potassium 4.3 meq/L (3.5-5.1); Sodium 143 meq/L (136-145)
[2018-08-05 23:17] LABS: Alkaline Phosphatase 102 U/L (45-117); Total Protein 6.9 g/dL (6.4-8.2)
[2018-08-06] MEDS: Pantoprazole Inj 80 MG in Sodium Chlor 0.9% Inj 100 ML IV.CONT SCH ×4 (02:09→23:31)
--- NOTE | 2018-08-06 03:05 | XR ---
EXAM DATE: 08/06/2018 3:00 AM EST AGE/SEX: 63 years / Male INDICATIONS: Difficulty breathing getting worse today. CLINICAL DATA: This is the patient's subsequent encounter. Patient reports that signs and symptoms h ave been present for 3 days and indicates a pain score of 0/10. MEDICAL/SURGICAL HISTORY: . Cardiovascular disease. Hypertension. Congestive heart failure. [place], A-fib. . . CABG. Coronary artery stent. [place] [facility] [place]. . FINDINGS: Cardiomegaly with vascular congestion and mild interstitial prominence. Vague focal mass like density overlying the left hilar region. Likely small effusions. CONCLUSION: Abnormal chest appearance Electronically signed by: Maikol Hui MD Board Certified Radiologist 08/06/2018 3:03 AM EST
[2018-08-06 03:58] LABS: ABG Base Excess -0.2 mmol/L (-2-2); ABG PCO2 43 mmHg (38-42); ABG PO2 54 mmHg (61-120)
[2018-08-06] MEDS ORDERED: Acetaminophen 325 MG Tablet PO PRN (04:32)
[2018-08-06] MEDS: hydrALAZINE 50 MG Tablet PO SCH ×3 (08:44→18:55)
[2018-08-06] MEDS: amLODIPine 10 MG Tablet PO SCH (08:44)
[2018-08-06] MEDS: Furosemide 40 MG Tablet PO SCH (08:44)
[2018-08-06] MEDS: Gabapentin 100 MG Capsule PO SCH ×2 (08:44→21:28)
[2018-08-06] MEDS: Atenolol 50 MG Tablet PO SCH (08:44)
[2018-08-06] MEDS: Lactic Acid (Ammonium Lactate) 12% Lotion 225 GM Bottle TOPICAL SCH ×2 (08:48→21:30)
--- NOTE | 2018-08-06 09:41 | P.PNIM ---
Subjective Interval history: Assumed patient care today, 08/06/18. Interval history-patient was transferred to intensive care overnight due to shortness of breath. was put on BIPAP and received Lasix at 2.41 am feels short of breath, has been wheezing as well. Had normal bowel movement yesterday without melena. Physical Exam Vital signs: Vital Signs 08/05/18 13:53 08/05/18 13:59 08/05/18 16:00 Temperature 98.0 F 98.0 F 98.8 F Pulse Rate 68 68 72 Respiratory Rate 16 18 18 Blood Pressure 134/79 134/79 158/75 H Pulse Oximetry 96 100 08/05/18 17:12 08/05/18 20:00 08/06/18 00:00 Temperature 98.2 F 100.5 F H 98.3 F Pulse Rate 74 78 72 Respiratory Rate 18 24 22 Blood Pressure 132/68 157/79 H 138/74 Pulse Oximetry 93 L 95 08/06/18 02:48 08/06/18 04:28 08/06/18 04:58 Temperature 98.2 F 99.5 F Pulse Rate 75 80 78 Respiratory Rate 22 26 H 26 H Blood Pressure 174/90 H 172/90 H Pulse Oximetry 94 L 94 L 08/06/18 05:00 08/06/18 05:45 08/06/18 06:00 Temperature Pulse Rate 78 67 Respiratory Rate 22 13 Blood Pressure 170/81 H Pulse Oximetry 100 100 08/06/18 06:01 08/06/18 06:19 Temperature Pulse Rate 86 68 Respiratory Rate 16 24 Blood Pressure 157/85 H Pulse Oximetry 100 Intake & Output 08/05/18 08/06/18 08/06/18 18:59 06:59 18:59 Intake Total 550 / 550 619 / 619 Output Total 450 / 450 1400 / 1400 Balance 100 / 100 -781 / -781 Weight 92.2 kg Intake: IV 100 / 100 139 / 139 Protonix Inj 80 MG In NS Inj 100 / 100 139 / 139 100 ML @ 10 mls/hr IV.CONT Q10H [facility] Rx#:[id number] Oral 480 / 480 Anesthesia Amount 50 / 50 Intake (Blood Product) Amt 400 / 400 Rbc As-3 Leukoreduced Unit 400 / 400 [id number] Output: Urine 450 / 450 1400 / 1400 Other: Date of Last Bowel Movement 08/03/18 Narrative: GENERAL: middle aged man, obese, in mild distress, HEENT:not pale,anicteric,nasal canula in situ NECK: JVP elevated CARDIOVASCULAR: Regular rate and rhythm,s1s2 normal, no murmurs. RESPIRATORY: Relatively clear to auscultation bilaterally GASTROINTESTINAL: Abdomen soft, non-tender, nondistended. Normoactive bowel sounds MUSCULOSKELETAL: Extremities without clubbing, cyanosis.1+ edema bilaterally. NEUROLOGICAL: Awake and alert to person place time situation. Able to get up independently from bed to chair Results Labs CBC & Chem 7: 08/06/18 09:57 08/06/18 09:57 Imaging Imaging: Impressions Chest X-Ray 08/06/18 00:00 CONCLUSION: Abnormal chest appearance Assessment and Plan (1) GI bleed: Code(s): K92.2 - Gastrointestinal hemorrhage, unspecified Status: Acute Plan 63-year-old male with a history of hypertension, chronic kidney disease stage III, diastolic congestive heart failure presents with one week history of generalized weakness and shortness of breath with black tarry stools found to have Acute on chronic anemia due to active blood loss from GI bleed-transfuse 2 units of packed red blood cells 08/03, Hb 9.7 on 08/05, labs pending today. Acute on Chronic HFpEF-volume overload likely in the setting of recent blood products including FFP and prbc.keep on IV Lasix for now, monitor strict I/O, daily wts,low salt diet. GI bleedrequired Vit k and FFP,prbc on admissionEGD showed chronic gastritis, no acute source of bleeding. PPI for 6-8 wks recommended. Stop aspirin, hold warfarin. Acute kidney injury superimposed on chronic kidney disease stage III due to GI bleed, monitor closely with blood transfusion. avoid nephrotoxins. History of paroxysmal atrial fibrillationcontinue with atenolol, aspirin and warfarin currently on hold due to GI bleed. Hypertension historycontinue hydralazine and amlodipine,Atenolol. Venous stasis dermatitisLac-Hydrin lotion to area. DVT prophylaxiswarfarin on hold due to active GI bleed, SCDs Progress Note: Quality VTE Deep Vein Thrombosis/Pulmonary Embolism Present on Admission: No _ (1) GI bleed Qualifiers: GI bleed type/associated pathology: unspecified gastrointestinal hemorrhage type Gastritis type: Qualified Code(s): K92.2 - Gastrointestinal hemorrhage, unspecified
--- NOTE | 2018-08-06 10:09 | P.PNGI ---
Subjective Interval history: Patient doing well. Sitting up in bed. Tolerating regular diet. No abdominal pain. No nausea or vomiting. No bowel movements today. EGD yesterday with gastritis. Physical Exam Vital signs: Vital Signs 08/05/18 13:53 08/05/18 13:59 08/05/18 16:00 Temperature 98.0 F 98.0 F 98.8 F Pulse Rate 68 68 72 Respiratory Rate 16 18 18 Blood Pressure 134/79 134/79 158/75 H Pulse Oximetry 96 100 08/05/18 17:12 08/05/18 20:00 08/06/18 00:00 Temperature 98.2 F 100.5 F H 98.3 F Pulse Rate 74 78 72 Respiratory Rate 18 24 22 Blood Pressure 132/68 157/79 H 138/74 Pulse Oximetry 93 L 95 08/06/18 02:48 08/06/18 04:28 08/06/18 04:58 Temperature 98.2 F 99.5 F Pulse Rate 75 80 78 Respiratory Rate 22 26 H 26 H Blood Pressure 174/90 H 172/90 H Pulse Oximetry 94 L 94 L 08/06/18 05:00 08/06/18 05:45 08/06/18 06:00 Temperature Pulse Rate 78 67 Respiratory Rate 22 13 Blood Pressure 170/81 H Pulse Oximetry 100 100 08/06/18 06:01 08/06/18 06:19 08/06/18 07:00 Temperature Pulse Rate 86 68 66 Respiratory Rate 16 24 14 Blood Pressure 157/85 H 155/76 H Pulse Oximetry 100 100 08/06/18 07:18 08/06/18 08:00 08/06/18 08:18 Temperature 98.3 F Pulse Rate 65 64 70 Respiratory Rate 14 18 24 Blood Pressure 147/79 H Pulse Oximetry 100 100 99 08/06/18 09:00 08/06/18 09:18 Temperature Pulse Rate 70 71 Respiratory Rate 30 H 25 H Blood Pressure 144/78 H Pulse Oximetry 98 98 Intake & Output 08/05/18 08/06/18 08/06/18 18:59 06:59 18:59 Intake Total 550 / 550 619 / 619 Output Total 450 / 450 1400 / 1400 Balance 100 / 100 -781 / -781 Weight 92.2 kg Intake: IV 100 / 100 139 / 139 Protonix Inj 80 MG In NS Inj 100 / 100 139 / 139 100 ML @ 10 mls/hr IV.CONT Q10H [facility] Rx#:[id number] Oral 480 / 480 Anesthesia Amount 50 / 50 Intake (Blood Product) Amt 400 / 400 Rbc As-3 Leukoreduced Unit 400 / 400 [id number] Output: Urine 450 / 450 1400 / 1400 Other: Date of Last Bowel Movement 08/03/18 08/03/18 Results - Labs CBC & Chem 7: 08/06/18 09:57 08/06/18 09:57 Laboratory Results - last 24 hr 08/05/18 08/05/18 08/05/18 12:27 22:46 22:46 WBC 7.6 RBC 3.47 L Hgb 9.7 L Hct 29.0 L MCV 83.4 MCH 27.8 MCHC 33.3 RDW 18.5 H Plt Count 158 MPV 7.0 Neut % (Auto) 63.5 Lymph % (Auto) 24.6 [place] % (Auto) 10.3 H Eos % (Auto) 1.2 Baso % (Auto) 0.4 Neut # (Auto) 4.8 Lymph # (Auto) 1.9 [place] # (Auto) 0.8 Eos # (Auto) 0.1 Baso # (Auto) 0.0 WBC Differential . Differential Comment Auto diff final PT 13.0 H INR 1.3 APTT 37.3 H Puncture Site Patient Temperature O2 Saturation ABG pH ABG pCO2 ABG pO2 ABG HCO3 ABG O2 Content ABG Base Excess ABG Methemoglobin Evelio Test Hemoglobin Carboxyhemoglobin O2 Delivery Device Liter Flow Critical Value Sodium Potassium Chloride Carbon Dioxide Anion Gap BUN Creatinine Estimated GFR Random Glucose Calcium Total Bilirubin AST ALT Alkaline Phosphatase Total Protein Albumin MTS Gel Crossmatch See Detail Bld Prod Order Comment 08/05/18 08/06/18 22:46 03:45 WBC RBC Hgb Hct MCV MCH MCHC RDW Plt Count MPV Neut % (Auto) Lymph % (Auto) [place] % (Auto) Eos % (Auto) Baso % (Auto) Neut # (Auto) Lymph # (Auto) [place] # (Auto) Eos # (Auto) Baso # (Auto) WBC Differential Differential Comment PT INR APTT Puncture Site Right radial Patient Temperature 98.6 O2 Saturation 84 L* ABG pH 7.37 L ABG pCO2 43 H ABG pO2 54 L* ABG HCO3 24 ABG O2 Content 11.7 L ABG Base Excess -0.2 ABG Methemoglobin 1.2 Evelio Test Present Hemoglobin 9.9 L Carboxyhemoglobin 2.0 O2 Delivery Device Nasal cannula Liter Flow 3.00 Critical Value Yes Sodium 143 Potassium 4.3 Chloride 110 H Carbon Dioxide 22.9 Anion Gap 10 BUN 50 H Creatinine 3.52 H Estimated GFR 21 L Random Glucose 152 H Calcium 7.8 L Total Bilirubin 1.0 AST 15 ALT 14 Alkaline Phosphatase 102 Total Protein 6.9 Albumin 2.7 L MTS Gel Crossmatch Bld Prod Order Comment - Imaging Impressions Chest X-Ray 08/06/18 00:00 CONCLUSION: Abnormal chest appearance Assessment and Plan - Plan Melena- 63 year old male anticoagulated on warfarin, with melena. Likely upper GI bleed. EGD yesterday, gastritis No further bleeding H&H stable Tolerating diet Further work up including Pill Cam can be done as outpatient. GI will sign off. Please feel free to contact us if there are any further concerns. Shirley Taylor PA-C/ Dr. Holm - Attending Attestation Dr. Holm
[2018-08-06 10:55] LABS: Baso % (Auto) 0.2 % (0.0-2.0); Eos # (Auto) 0.1 th/mm3 (0.0-0.4); Eos % (Auto) 1.4 % (0.0-4.0); Hematocrit 30.2 % (39.0-51.0); Hemoglobin 9.9 gm/dL (13.0-17.0); Lymph # (Auto) 1.7 th/mm3 (1.0-4.8); Lymph % (Auto) 26.1 % (9.0-44.0); Mean Corpuscular HGB Conc 32.7 % (32.0-36.0); Mean Corpuscular Hemoglobin 27.3 pg (27.0-34.0); Mean Corpuscular Volume 83.6 fL (80.0-100.0); Mean Platelet Volume 7.1 fL (7.0-11.0); Mono # (Auto) 0.7 th/mm3 (0.0-0.9); Mono % (Auto) 10.3 % (0.0-8.0); Neut # (Auto) 4.1 th/mm3 (1.8-7.7); Platelet Count 153 th/mm3 (150-450); Red Blood Count 3.61 mil/mm3 (4.50-5.90); White Blood Count 6.7 th/mm3 (4.0-11.0)
[2018-08-06 11:04] LABS: INR 1.2 Ratio; Prothrombin Time 12.6 sec (9.8-11.6)
[2018-08-06 11:25] LABS: Calcium 8.1 mg/dL (8.5-10.1); Carbon Dioxide 27.3 meq/L (21.0-32.0)
--- NOTE | 2018-08-07 08:33 | P.PNIM ---
Subjective Interval history: Patient seen on follow up this morning for episode of SOB requiring upgrade to ICU and also for GIB found to have gastritis this morning patient is off the BiPaP and on 3L nc saturating 94%. No home O2 at baseline Says his breathing is improving No wheezing, sob, palp, dizziness, or active chest pain no reported bleeding episode overnight as per nursing staff coumadin has been held while inpatient Physical Exam Vital signs: Vital Signs 08/06/18 09:00 08/06/18 09:18 08/06/18 10:00 Temperature Pulse Rate 70 71 72 Respiratory Rate 30 H 25 H 28 H Blood Pressure 144/78 H 114/64 Pulse Oximetry 98 98 99 08/06/18 10:18 08/06/18 11:00 08/06/18 11:18 Temperature Pulse Rate 73 72 72 Respiratory Rate 27 H 26 H 37 H Blood Pressure 117/69 Pulse Oximetry 100 99 95 08/06/18 12:00 08/06/18 12:18 08/06/18 13:00 Temperature 98.3 F Pulse Rate 69 68 66 Respiratory Rate 27 H 28 H 21 Blood Pressure 117/69 117/61 124/75 Pulse Oximetry 97 98 97 08/06/18 13:36 08/06/18 14:00 08/06/18 15:00 Temperature Pulse Rate 71 68 69 Respiratory Rate 28 H 23 19 Blood Pressure 131/70 139/78 Pulse Oximetry 100 100 08/06/18 16:00 08/06/18 17:00 08/06/18 18:00 Temperature Pulse Rate 72 73 75 Respiratory Rate 24 28 H 30 H Blood Pressure 131/70 142/77 H 130/67 Pulse Oximetry 100 97 95 08/06/18 19:00 08/06/18 19:18 08/06/18 20:00 Temperature Pulse Rate 74 70 72 Respiratory Rate 31 H 21 22 Blood Pressure 128/58 L Pulse Oximetry 95 100 99 08/06/18 20:18 08/06/18 21:00 08/06/18 21:18 Temperature Pulse Rate 71 75 72 Respiratory Rate 22 29 H 28 H Blood Pressure 135/71 119/75 Pulse Oximetry 96 90 L 97 08/06/18 22:00 08/06/18 22:18 08/06/18 23:00 Temperature Pulse Rate 71 72 72 Respiratory Rate 29 H 34 H 24 Blood Pressure 145/86 H Pulse Oximetry 95 95 95 08/06/18 23:18 08/07/18 00:00 08/07/18 00:18 Temperature Pulse Rate 72 75 73 Respiratory Rate 22 27 H 23 Blood Pressure 150/73 H 131/63 Pulse Oximetry 96 95 94 L 08/07/18 01:00 08/07/18 01:18 08/07/18 02:00 Temperature Pulse Rate 75 71 77 Respiratory Rate 29 H 18 39 H Blood Pressure 151/78 H Pulse Oximetry 96 93 L 95 08/07/18 02:18 08/07/18 03:00 08/07/18 03:18 Temperature Pulse Rate 76 73 73 Respiratory Rate 24 22 45 H Blood Pressure 149/78 H 134/60 Pulse Oximetry 95 08/07/18 04:00 08/07/18 04:18 08/07/18 05:00 Temperature Pulse Rate 75 73 75 Respiratory Rate 27 H 23 28 H Blood Pressure 154/82 H Pulse Oximetry 95 95 97 08/07/18 05:18 08/07/18 06:00 Temperature Pulse Rate 74 77 Respiratory Rate 26 H 29 H Blood Pressure 143/73 H Pulse Oximetry 97 94 L Intake & Output 08/06/18 08/07/18 08/07/18 18:59 06:59 18:59 Intake Total 861 / 861 860 / 860 Output Total 1000 / 1000 800 / 800 Balance -139 / -139 60 / 60 Weight 92.2 kg Intake: IV 61 / 61 100 / 100 Protonix Inj 80 MG In NS Inj 61 / 61 100 / 100 100 ML @ 10 mls/hr IV.CONT Q10H [facility] Rx#:[id number] Oral 800 / 800 760 / 760 Output: Urine 1000 / 1000 800 / 800 Other: Date of Last Bowel Movement 08/03/18 08/03/18 gen: nad heent: no pale conjunctiva cvs: s1/s2, irregularly irregular resp: fine crackle at lung base, no wheeze gi: soft, non tender, non distended, no guarding or rebound ext: no edema appreciated. no calf tenderness neuro: CN 2-12 grossly intact Results Labs CBC & Chem 7: 08/06/18 09:57 08/06/18 09:57 Assessment and Plan (1) GI bleed: Code(s): K92.2 - Gastrointestinal hemorrhage, unspecified Status: Acute Plan Patient is a 63-year-old male with a history of hypertension, chronic kidney disease stage III, diastolic congestive heart failure presents with one week history of generalized weakness and shortness of breath with black tarry stools found to have Acute on chronic anemia due to active blood loss from GI bleed-transfuse 2 units of packed red blood cells 08/03. Hgb has remained stable and GI team signed off. Acute on Chronic HFpEF-volume overload likely in the setting of recent blood products including FFP and prbc. Continue to monitor strict I/O,daily wts,low salt diet. 08/06 CXR noted abnormal. Will repeat on 08/07 to eval for fluid overload. Continue to titrate down oxygen as patient currently on 3L but not on home oxygen normally. 1 additional dose lasix 60mg IV. BiPaP prn SOB if needed. GI bleedrequired Vit k and FFP,prbc on admission. EGD showed chronic gastritis, no acute source of bleeding. PPI for 6-8 wks recommended. Stop aspirin. given that patient was only found with gastritis the benefits of A/C outweigh risks of holding currently. will re-start coumadin and monitor Hgb levels for new bleeding. continue PPI therapy and will need outpatient GI follow up as they already recommended. Acute kidney injury superimposed on chronic kidney disease stage III due to GI bleed. History of paroxysmal atrial fibrillationcontinue with atenolol. Resume A/C today 08/07 and monitor for bleeding Hypertension historycontinue hydralazine and amlodipine,Atenolol. Venous stasis dermatitisLac-Hydrin lotion to area. DVT prophylaxisSCDs Code: DOROTHY diet: cardiac Progress Note: Quality VTE Deep Vein Thrombosis/Pulmonary Embolism Present on Admission: No _ (1) GI bleed Qualifiers: GI bleed type/associated pathology: unspecified gastrointestinal hemorrhage type Gastritis type: Qualified Code(s): K92.2 - Gastrointestinal hemorrhage, unspecified
[2018-08-07] MEDS ORDERED: Warfarin Consult Pharmacy OTHER PRN (08:44)
[2018-08-07] MEDS: hydrALAZINE 50 MG Tablet PO SCH ×3 (09:23→17:21)
[2018-08-07] MEDS: Gabapentin 100 MG Capsule PO SCH ×2 (09:23→20:42)
[2018-08-07] MEDS: Atenolol 50 MG Tablet PO SCH (09:23)
[2018-08-07] MEDS: amLODIPine 10 MG Tablet PO SCH (09:23)
--- NOTE | 2018-08-07 09:28 | XR ---
EXAM DATE: 08/07/2018 9:24 AM EST AGE/SEX: 63 years / Male INDICATIONS: Short of breath. CLINICAL DATA: This is the patient's subsequent encounter. Patient reports that signs and symptoms h ave been present for 2 days and indicates a pain score of 0/10. MEDICAL/SURGICAL HISTORY: . Myocardial infarction. Congestive heart failure. Hypertension. . CABG. [place] [facility] [place]. . FINDINGS: Slight cardiomegaly has not changed . The vague left upper lung opacity is again seen not c hanged. The rest of the examination has not changed. CONCLUSION: No appreciable change. Electronically signed by: Karla Nayak MD Board Certified Radiologist 08/07/2018 9:27 AM EST
[2018-08-07] MEDS: Pantoprazole Inj 80 MG in Sodium Chlor 0.9% Inj 100 ML IV.CONT SCH ×2 (11:15→20:39)
[2018-08-07 11:23] LABS: Hematocrit 31.4 % (39.0-51.0); Hemoglobin 10.2 gm/dL (13.0-17.0); Mean Corpuscular HGB Conc 32.4 % (32.0-36.0); Mean Corpuscular Hemoglobin 27.7 pg (27.0-34.0); Mean Corpuscular Volume 85.5 fL (80.0-100.0); Mean Platelet Volume 7.2 fL (7.0-11.0); Platelet Count 160 th/mm3 (150-450); Red Blood Count 3.67 mil/mm3 (4.50-5.90); Red Cell Distribution Width 19.1 % (11.6-17.2); White Blood Count 7.2 th/mm3 (4.0-11.0)
[2018-08-07 11:48] LABS: Calcium 7.9 mg/dL (8.5-10.1); Carbon Dioxide 27.9 meq/L (21.0-32.0); Potassium 4.3 meq/L (3.5-5.1)
[2018-08-07] MEDS: Lactic Acid (Ammonium Lactate) 12% Lotion 225 GM Bottle TOPICAL SCH ×2 (19:35→20:42)
[2018-08-08] MEDS: Pantoprazole Inj 80 MG in Sodium Chlor 0.9% Inj 100 ML IV.CONT SCH ×2 (03:45→04:29)
--- NOTE | 2018-08-08 08:36 | P.PNIM ---
Subjective Interval history: Follow-up for GI bleed Has not had a bowel movement, no note of GI bleeding. No abdominal pain. Complaining of right ankle pain, has history of gout. Shortness of breath stable, better than yesterday. Had an episode of nonsustained V. tach versus atrial fibrillation with aberration, patient was asymptomatic. Denies any dizziness or lightheadedness. Blood pressure still elevated in the 170s. Denies any headache. Physical Exam Vital signs: Vital Signs 08/07/18 09:00 08/07/18 10:00 08/07/18 11:00 Temperature Pulse Rate 72 77 74 Respiratory Rate 29 H 37 H 35 H Blood Pressure Pulse Oximetry 96 95 97 08/07/18 11:16 08/07/18 12:00 08/07/18 13:00 Temperature Pulse Rate 74 73 72 Respiratory Rate 28 H 36 H 23 Blood Pressure 140/74 141/73 H 131/69 Pulse Oximetry 96 94 L 95 08/07/18 14:00 08/07/18 14:07 08/07/18 15:00 Temperature Pulse Rate 76 75 74 Respiratory Rate 27 H 29 H 30 H Blood Pressure 130/69 152/82 H Pulse Oximetry 94 L 94 L 92 L 08/07/18 16:00 08/07/18 17:00 08/07/18 18:00 Temperature 99.1 F Pulse Rate 73 77 79 Respiratory Rate 30 H 42 H 40 H Blood Pressure 152/77 H 143/75 H 138/68 Pulse Oximetry 91 L 93 L 93 L 08/07/18 19:00 08/07/18 20:00 08/07/18 21:00 Temperature 98.3 F Pulse Rate 75 74 75 Respiratory Rate 20 31 H 25 H Blood Pressure 142/70 H 150/72 H 140/69 Pulse Oximetry 94 L 94 L 92 L 08/07/18 22:00 08/07/18 23:00 08/07/18 23:11 Temperature Pulse Rate 76 73 Respiratory Rate 34 H 24 Blood Pressure 129/62 122/62 Pulse Oximetry 92 L 92 L 89 L 08/08/18 00:00 08/08/18 01:00 08/08/18 02:00 Temperature Pulse Rate 77 74 75 Respiratory Rate 31 H 23 30 H Blood Pressure 127/68 131/67 123/56 L Pulse Oximetry 96 96 92 L 08/08/18 03:00 08/08/18 04:00 08/08/18 05:00 Temperature Pulse Rate 77 74 74 Respiratory Rate 29 H 30 H 25 H Blood Pressure 111/47 L 139/71 127/62 Pulse Oximetry 92 L 97 93 L 08/08/18 06:00 08/08/18 07:37 Temperature Pulse Rate 75 Respiratory Rate 28 H Blood Pressure 113/56 L Pulse Oximetry 94 L 97 Intake & Output 08/07/18 08/08/18 08/08/18 18:59 06:59 18:59 Intake Total 580 / 580 1300 / 1300 Output Total 850 / 850 Balance 580 / 580 450 / 450 Weight 92.9 kg Intake: IV 100 / 100 100 / 100 Protonix Inj 80 MG In NS Inj 100 / 100 100 / 100 100 ML @ 10 mls/hr IV.CONT Q10H [facility] Rx#:[id number] Oral 480 / 480 1200 / 1200 Output: Urine 850 / 850 Other: # Voids 6 Date of Last Bowel Movement 08/03/18 08/03/18 # Bowel Movements 0 0 Narrative: GENERAL: middle aged man, obese, not in distress. HEENT:not pale,anicteric,nasal canula in situ CARDIOVASCULAR: Regular rate and rhythm,s1s2 normal, no murmurs. RESPIRATORY: Crackles on both bases especially on the right. GASTROINTESTINAL: Abdomen soft, non-tender, nondistended. Normoactive bowel sounds MUSCULOSKELETAL: Extremities without clubbing, cyanosis.1+ edema bilaterally. Tenderness to palpation of the right ankle, swollen, mild erythema. NEUROLOGICAL: Awake and alert to person place time situation. Able to get up independently from bed to chair Results Labs CBC & Chem 7: 08/07/18 11:01 08/07/18 11:01 Imaging Imaging: Impressions Chest X-Ray 08/07/18 00:00 CONCLUSION: No appreciable change. Assessment and Plan (1) GI bleed: Code(s): K92.2 - Gastrointestinal hemorrhage, unspecified Status: Acute Plan Patient is a 63-year-old male with a history of hypertension, chronic kidney disease stage III, diastolic congestive heart failure presents with one week history of generalized weakness and shortness of breath with black tarry stools. Acute on chronic anemia due to active blood loss from GI bleed-transfused 2 units of packed red blood cells 08/03. Hgb has remained stable and GI team signed off. Acute on Chronic HFpEF- volume overload likely in the setting of recent blood products including FFP and prbc. Echocardiogram in June 2018 showed ejection fraction of 50-55% with LVH. Continue to monitor strict I/O,daily wts, low salt diet. 08/06 CXR noted with vague left upper lobe opacity, repeat is unchanged. Continue to titrate down oxygen as patient currently on 3L but not on home oxygen normally. Did not BiPAP last night. Resume home dose of Lasix later today, will give an extra dose of intravenous Lasix now, still clinically wet on exam. GI bleedrequired Vit k and FFP,prbc on admission. EGD showed chronic gastritis , no acute source of bleeding. PPI for 6-8 wks recommended. Stop aspirin. given that patient was only found with gastritis the benefits of A/C outweigh risks of holding currently. Continue Coumadin, pharmacy to dose. Acute kidney injury superimposed on chronic kidney disease stage III-IV due to GI bleed- Creatinine at 3.98, recheck BMP tomorrow, consult nephrology. Acute gout flare-restart colchicine start loading now with 1.2 mg then usual dosing starting this evening. Rule out right calf DVT, check ultrasound History of paroxysmal atrial fibrillationcontinue with atenolol. Coumadin restarted. Hypertension history, uncontrolledcontinue atenolol and Norvasc. Increase hydralazine to 75 mg 3 times a day. Venous stasis dermatitisLac-Hydrin lotion to area. DVT prophylaxisSCDs Code: FC diet: cardiac Transfer to [facility]. Progress Note: Quality VTE Deep Vein Thrombosis/Pulmonary Embolism Present on Admission: No _ (1) GI bleed Qualifiers: GI bleed type/associated pathology: unspecified gastrointestinal hemorrhage type Gastritis type: Qualified Code(s): K92.2 - Gastrointestinal hemorrhage, unspecified
[2018-08-08] MEDS: amLODIPine 10 MG Tablet PO SCH (08:54)
[2018-08-08] MEDS: Atenolol 50 MG Tablet PO SCH (08:54)
[2018-08-08] MEDS: Gabapentin 100 MG Capsule PO SCH ×2 (08:54→21:39)
[2018-08-08] MEDS: hydrALAZINE 50 MG Tablet PO SCH (08:54)
[2018-08-08] MEDS: Lactic Acid (Ammonium Lactate) 12% Lotion 225 GM Bottle TOPICAL SCH ×3 (08:55→21:42)
--- NOTE | 2018-08-08 11:42 | US ---
EXAM DATE: 08/08/2018 11:40 AM EST AGE/SEX: 63 years / Male INDICATIONS: Right leg pain. CLINICAL DATA: This is the patient's initial encounter. Patient reports that signs and symptoms have been present for 1 day and indicates a pain score of 4/10. MEDICAL/SURGICAL HISTORY: Congestive heart failure. Hypertension. Myocardial infarction. Chr onic kidney disease. Coronary artery disease. Cocaine use. Hyperlipidemia. Appendectomy. Hernia repa ir. Back surgery. CABG x2. COMPARISON: [facility], US LEG BILATERAL VENOUS DOPPLER, 05/29/2017. . TECHNIQUE: Venous ultrasound of both lower extremities was performed from the inguinal ligament to t he proximal calf. Real-time, color Doppler and spectral tracing, compression and augmentation techni ques were used. FINDINGS: Normal compression of the deep venous system from the inguinal region to the proximal calf . No echogenic clot is seen. Normal response of the venous system to augmentation and respiration. CONCLUSION: 1. Negative exam with no evidence of deep venous thrombosis. Electronically signed by: Ty Conley MD Board Certified Radiologist 08/08/2018 11:41 AM EST
[2018-08-08] MEDS: hydrALAZINE 25 MG Tablet PO SCH ×2 (14:28→17:07)
--- NOTE | 2018-08-08 14:42 | P.CONCA ---
History of Present Illness Service: Cardiology Consult date: 08/08/18 Requesting Physician: Mingo Gonzalez Reason for Consult: Nonsustained ventricular tachycardia Primary Care Provider: UNKNOWN Chief Complaint: Shortness of breath and generalized weakness History of Present Illness: This is a 63-year-old -[place] male with a past medical history of hypertension, chronic kidney disease stage III, diastolic congestive heart failure and paroxysmal atrial fibrillation being anticoagulated on warfarin. He was admitted on August 03, 2018 with complaints of shortness of breath, generalized weakness that had progressively worsened over the prior week. He also noticed that he started to have black tarry stools. He decided to come to the emergency department for further evaluation and treatment. Approximately 01 :20 this morning, he had a 8 beat run of nonsustained ventricular tachycardia, asymptomatic. On evaluation today, he states that he just moved back from [place] and does not have any physicians in the area. He also denies seeing any physicians up in [place]. He denies any chest pain, pressure, palpitations, dizziness, edema or shortness of breath. Review of Systems All other systems reviewed negative except as stated in HPI PMFSH - History History Provided By: Patient - Medical History Medical History: Medical History (Last Updated 08/03/18 @ 15:19 by Ilya Agarwal MD) Congestive heart failure Chronic kidney disease Coronary artery disease Hyperlipidemia Hypertension Myocardial infarct Cocaine use - Surgical History Surgical History: Surgical History (Last Updated 08/03/18 @ 15:19 by Ilya Agarwal MD) H/O hernia repair History of appendectomy Previous back surgery S/P CABG x 2 Onset Date: ~05/30/17 - Family History Family History: Family History (Last Updated 08/03/18 @ 15:20 by Ilya Agarwal MD) Mother Heart disease - Tobacco History Second Hand Smoke Exposure: No Tobacco Use In Past 30 Days: Yes Smoking Status: Current every day smoker Tobacco Type: Cigarettes Packs Per Day: 0.5 Cigarettes Per Day: 10.0 - Alcohol History How Often Do You Have a Drink Containing Alcohol: Never - Substance Use History Substance History: Past History - Travel History Recent Travel in the [place] Within the Last 8 Weeks: No Recent Travel Out of the Country Within the Last 8 Weeks: No - Immunization History Tetanus Immunization: Unsure Hx Influenza Vaccine This Season: Yes Medications and Allergies Allergies Allergy/AdvReac Type Severity Reaction Status Date / Time morphine AdvReac Intermediate Confusion Verified 07/24/17 00:01 Home Medications Medication Instructions Recorded Confirmed Type benzocaine-menthol 1 misty MUCOUS MEMBRANE Q2-4H PRN 06/12/18 08/03/18 History Active Medications: Active Medications Acetaminophen (Tylenol) 650 mg PO Q4H PRN PRN Reason: Temp > 100.4/pain Al Hydroxide/Mg Hydroxide (Milk Of Magnesia Liq) 30 ml PO Q12H PRN PRN Reason: Mild Constipation Albuterol (Duoneb Neb (Prn)) 1 ampul NEB Q2HR NEB PRN PRN Reason: SHORTNESS OF BREATH/WHEEZING Last Admin: 08/06/18 13:35 Dose: 1 ampul Amlodipine Besylate (Norvasc) 10 mg PO DAILY [facility] Last Admin: 08/08/18 08:54 Dose: 10 mg Atenolol (Tenormin) 50 mg PO DAILY [facility] Last Admin: 08/08/18 08:54 Dose: 50 mg Atorvastatin Calcium (Lipitor) 40 mg PO DAILY [facility] Last Admin: 08/08/18 08:54 Dose: 40 mg Bisacodyl (Dulcolax Supp) 10 mg RECTAL DAILY PRN PRN Reason: SEVERE CONSITIPATION Colchicine (Colcrys) 0.6 mg PO BID [facility] Furosemide (Lasix) 40 mg PO DAILY [facility] Last Admin: 08/06/18 08:44 Dose: 40 mg Gabapentin (Neurontin) 100 mg PO BID [facility] Last Admin: 08/08/18 08:54 Dose: 100 mg Hydralazine HCl (Apresoline) 75 mg PO TID [facility] Lactic Acid (Lac-Hydrin 12% Lotion) 1 applicatio TOPICAL BID [facility] Last Admin: 08/08/18 08:55 Dose: 1 applicatio Lactulose (Lactulose Liq) 30 ml PO DAILY PRN PRN Reason: SEVERE CONSITIPATION Ondansetron HCl (Zofran Inj) 4 mg IV.PUSH Q6H PRN PRN Reason: NAUSEA OR VOMITING Oxycodone/Acetaminophen (Percocet 5/325 Mg) 1 tab PO Q6H PRN PRN Reason: PAIN SCALE 6 TO 10 Last Admin: 08/08/18 11:12 Dose: 1 tab Pantoprazole Sodium (Protonix) 40 mg PO BID [facility] Pharmacy Profile Note (Coumadin Consult Pharmacy) 1 each OTHER UNSCH PRN PRN Reason: PHARMACY DOCUMENTATION Sennosides (Senokot) 17.2 mg PO Q12H PRN PRN Reason: Moderate Constipation Sodium Chloride (Ns Flush) 2 ml IV.FLUSH BID [facility] Last Admin: 08/08/18 08:54 Dose: 2 ml Sodium Chloride (Ns Flush) 2 ml IV.FLUSH PRN PRN PRN Reason: FLUSH AFTER USING IV ACCESS Tamsulosin HCl (Flomax) 0.4 mg PO DAILY [facility] Last Admin: 08/08/18 08:54 Dose: 0.4 mg Warfarin Sodium (Coumadin) 7.5 mg PO DAILY@1600 [facility] Last Admin: 08/07/18 17:20 Dose: 7.5 mg Exam Vital signs: Vital Signs 08/07/18 15:00 08/07/18 16:00 08/07/18 17:00 Temperature 99.1 F Pulse Rate 74 73 77 Respiratory Rate 30 H 30 H 42 H Blood Pressure 152/82 H 152/77 H 143/75 H Pulse Oximetry 92 L 91 L 93 L 08/07/18 18:00 08/07/18 19:00 08/07/18 20:00 Temperature 98.3 F Pulse Rate 79 75 74 Respiratory Rate 40 H 20 31 H Blood Pressure 138/68 142/70 H 150/72 H Pulse Oximetry 93 L 94 L 94 L 08/07/18 21:00 08/07/18 22:00 08/07/18 23:00 Temperature Pulse Rate 75 76 73 Respiratory Rate 25 H 34 H 24 Blood Pressure 140/69 129/62 122/62 Pulse Oximetry 92 L 92 L 92 L 08/07/18 23:11 08/08/18 00:00 08/08/18 01:00 Temperature Pulse Rate 77 74 Respiratory Rate 31 H 23 Blood Pressure 127/68 131/67 Pulse Oximetry 89 L 96 96 08/08/18 02:00 08/08/18 03:00 08/08/18 04:00 Temperature Pulse Rate 75 77 74 Respiratory Rate 30 H 29 H 30 H Blood Pressure 123/56 L 111/47 L 139/71 Pulse Oximetry 92 L 92 L 97 08/08/18 05:00 08/08/18 06:00 08/08/18 07:00 Temperature Pulse Rate 74 75 72 Respiratory Rate 25 H 28 H 17 Blood Pressure 127/62 113/56 L 133/63 Pulse Oximetry 93 L 94 L 95 08/08/18 07:37 08/08/18 08:00 08/08/18 08:15 Temperature Pulse Rate 68 Respiratory Rate Blood Pressure 141/72 H Pulse Oximetry 97 95 08/08/18 09:00 08/08/18 10:00 08/08/18 11:00 Temperature Pulse Rate 76 70 69 Respiratory Rate 51 H 15 15 Blood Pressure 170/74 H 129/56 L Pulse Oximetry 92 L 96 97 08/08/18 11:16 08/08/18 12:00 08/08/18 13:00 Temperature 98.7 F Pulse Rate 69 68 65 Respiratory Rate 24 20 16 Blood Pressure 118/64 119/62 108/59 L Pulse Oximetry 97 95 91 L Intake & Output 08/07/18 08/08/18 08/08/18 18:59 06:59 18:59 Intake Total 580 / 580 1300 / 1300 60 / 60 Output Total 850 / 850 Balance 580 / 580 450 / 450 60 / 60 Weight 92.9 kg Intake: IV 100 / 100 100 / 100 60 / 60 Protonix Inj 80 MG In NS Inj 100 / 100 100 / 100 60 / 60 100 ML @ 10 mls/hr IV.CONT Q10H [facility] Rx#:[id number] Oral 480 / 480 1200 / 1200 Output: Urine 850 / 850 Other: # Voids 6 Date of Last Bowel Movement 08/03/18 08/03/18 08/03/18 # Bowel Movements 0 0 - Constitutional no acute distress - Routine HEENT Exam Head: Present: normocephalic Eye: Present: PERRL ENT: Present: mucous membranes moist - Routine Neck Exam Present: full ROM - Routine Respiratory Exam Present: CTA bilaterally - Routine Cardiovascular Exam Present: S1, S2. Absent: murmur, gallop, rubs - Routine Abdominal Exam Present: normoactive bowel sounds - Routine Extremities Exam Present: full ROM, pulses intact, normal capillary refill. Absent: cyanosis, clubbing, edema - Routine Skin Exam Present: intact - Routine Neurological Exam Present: oriented X3 Results 08/07/18 11:01 08/07/18 11:01 CBC 08/07/18 Range/Units 11:01 WBC 7.2 (4.0-11.0) th/mm3 RBC 3.67 L (4.50-5.90) mil/mm3 Hgb 10.2 L (13.0-17.0) gm/dL Hct 31.4 L (39.0-51.0) % Plt Count 160 (150-450) th/mm3 Comprehensive Metabolic Panel 08/07/18 Range/Units 11:01 Sodium 144 (136-145) meq/L Potassium 4.3 (3.5-5.1) meq/L Chloride 109 H (98-107) meq/L Carbon Dioxide 27.9 (21.0-32.0) meq/L BUN 55 H (7-18) mg/dL Creatinine 3.98 H (0.60-1.30) mg/dL Calcium 7.9 L (8.5-10.1) mg/dL Intake and Output 08/07/18 08/08/18 08/08/18 22:59 06:59 14:59 Intake Total 500 / 500 1280 / 1280 60 / 60 Output Total 850 / 850 Balance 500 / 500 430 / 430 60 / 60 Intake: IV 20 / 20 80 / 80 60 / 60 Protonix Inj 80 MG In NS Inj 20 / 20 80 / 80 60 / 60 100 ML @ 10 mls/hr IV.CONT Q10H [facility] Rx#:[id number] Oral 480 / 480 1200 / 1200 Output: Urine 850 / 850 Other: # Voids 6 Date of Last Bowel Movement 08/03/18 08/03/18 08/03/18 # Bowel Movements 0 0 Weight 92.9 kg - Imaging and Cardiology Imaging: Impressions Chest X-Ray 08/07/18 00:00 CONCLUSION: No appreciable change. Venous Doppler Study 08/08/18 00:00 CONCLUSION: 1. Negative exam with no evidence of deep venous thrombosis. Assessment and Plan - Assessment (1) Nonsustained ventricular tachycardia Code(s): I47.2 - Ventricular tachycardia Status: Acute (2) Hypertension Code(s): I10 - Essential (primary) hypertension Status: Chronic (3) CKD (chronic kidney disease) Code(s): N18.9 - Chronic kidney disease, unspecified Status: Chronic (4) H/O heart artery stent Code(s): Z95.5 - Presence of coronary angioplasty implant and graft Status: Acute (5) GI bleed Code(s): K92.2 - Gastrointestinal hemorrhage, unspecified Status: Acute (6) Anemia Code(s): D64.9 - Anemia, unspecified Status: Acute (7) Illicit drug use Code(s): F19.90 - Other psychoactive substance use, unspecified, uncomplicated Status: Acute (8) Cocaine abuse Code(s): F14.10 - Cocaine abuse, uncomplicated Status: Chronic (9) Noncompliance with medication regimen Code(s): Z91.14 - Patient's other noncompliance with medication regimen Status : Acute - Plan He has chronic kidney disease stage III, nephrology evaluation and treatment in progress. GI evaluation and treatment in progress due to GI bleeding. Troponin level is mildly elevated likely related to chronic kidney disease. Patient had one episode of an 8 beat run of nonsustained ventricular tachycardia , we will continue to monitor. We will continue with the current cardiac treatment plan and adjust as needed. Will obtain a 2D echo to reevaluate left ventricular function. We will continue to monitor patient during his hospitalization. The patient was seen and evaluated by Dr. Cunha who participated in care, management decision making. - Attending Attestation Patient seen and examined. I reviewed and agree with the evaluation and plan as presented. Continue current program including beta gena. Monitor on telemetry. Check echo. Increase activity. (2) Hypertension Qualifiers: Hypertension type: unspecified Qualified Code(s): I10 - Essential (primary) hypertension (3) CKD (chronic kidney disease) Qualifiers: Chronic kidney disease stage: unspecified stage Qualified Code(s): N18.9 - Chronic kidney disease, unspecified (5) GI bleed Qualifiers: GI bleed type/associated pathology: unspecified gastrointestinal hemorrhage type Qualified Code(s): K92.2 - Gastrointestinal hemorrhage, unspecified (6) Anemia Qualifiers: Anemia type: other cause Other causes of anemia: acute posthemorrhagic Qualified Code(s): D62 - Acute posthemorrhagic anemia
[2018-08-08] MEDS ORDERED: Melatonin 5 MG Tablet PO PRN (20:13)
--- NOTE | 2018-08-08 21:27 | MB ---
cc: Gia Khan MD DATE: 08/08/2018 REASON FOR CONSULTATION: Elevated BUN and creatinine, for evaluation. HISTORY OF PRESENT ILLNESS: This is a 63-year-old male with a past medical history of chronic kidney disease and ischemic heart disease, diastolic dysfunction, congestive heart failure, atrial fibrillation, on warfarin, was admitted with complaint of shortness of breath and generalized weakness. I was called to see the patient because of elevated BUN and creatinine. The patient has creatinine of 3.3 on admission, which has increased now to 3.9. The patient previously had creatinine of around 3.0-3.3. This was last month, so he has this gradual worsening of the renal function. 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 The patient was seen here by the biochemistry technician and has been getting diuretics. His breathing has been improving, but he still has shortness of breath on exertion. He denies any chest pain. No dysuria or hematuria. No history of renal stone. PAST MEDICAL HISTORY: Hypertension, hyperlipidemia, ischemic heart disease, congestive heart failure, diastolic dysfunction, chronic kidney disease. PAST SURGICAL HISTORY: History of hernia repair, appendicectomy, back surgery, history of coronary artery bypass grafting in 05/2017. SOCIAL HISTORY: The patient has been active smoker. There is no history of alcoholism. FAMILY HISTORY: Noncontributory. ALLERGIES: ALLERGIC TO MORPHINE. REVIEW OF SYSTEMS: The patient has generalized weakness, worsening shortness of breath, more with exertion. He has mild cough no fever. No chest pain. No nausea, vomiting. No abdominal pain. No history of diarrhea. No dysuria or hematuria. There is no history of renal stone. MEDICATIONS: Currently he is on following medications: 1. DuoNeb nebulizer. 2. Atenolol 50 mg once a day. 3. Norvasc 10 mg once a day. 4. Milk of magnesia. 5. Tylenol as needed. 6. Lipitor 40 mg once a day. 7. Dulcolax p.r.n. 8. Lasix 40 mg p.o. daily. 9. Neurontin 100 mg b.i.d. 10. Hydralazine 75 mg t.i.d. 11. Lactulose as needed. 12. Melatonin 5 mg p.r.n. at night. 13. Zofran as needed. 14. Protonix 40 mg b.i.d. 15. Flomax 0.4 mg once a day. 16. Coumadin 7.5 mg daily. PHYSICAL EXAMINATION: GENERAL: The patient is awake, alert, and is sitting in the chair. I saw him in the morning. He was with nasal cannula. VITAL SIGNS: Last blood pressure was 121/67, temperature is 98.7, oxygen saturation is 93%-94% on 2 L nasal cannula. HEENT: Pupils are mid constricted. Nonicteric sclerae. Conjunctivae pale. NECK: Supple. JVD is slightly elevated. LUNGS: The patient has bilateral decreased air entry with basal rales and scattered wheezing. HEART: S1, S2. . ABDOMEN: Distended, soft. There is no tenderness. Bowel sounds are positive. EXTREMITIES: He has bilateral 2+ edema. INVESTIGATIONS: WBC count 7.2, hemoglobin 10.2, platelet count of 160. INR is 1.2. Sodium 144, potassium 4.3, chloride 109, bicarbonate 27.9, BUN 55, creatinine 3.8, calcium is 7.9. Urinalysis showing the patient has proteinuria of 100. IMAGING STUDIES: The patient has venous Doppler study of the right leg done, which shows it was negative for deep vein thrombosis. Chest x-ray was done which shows cardiomegaly with left upper lung opacity, unchanged. ASSESSMENT AND PLAN: 1. Chronic kidney disease with some acute worsening. 2. Congestive heart failure and fluid overload status. 3. Anemia and gastrointestinal bleeding. 4. Hypertension. 5. Atrial fibrillation. The patient has chronic kidney disease and has minimal proteinuria. Most likely, the patient has hypertensive renovascular disease causing renal failure. The patient has advanced stage IV renal disease and baseline his GFR was around 23-24. There is some acute element with some worsening of the GFR and the creatinine. This could be either because of diuretics or it could be from the cardiorenal syndrome. The dose of the diuretic is decreased, and now he is on oral diuretics. I will check the ultrasound of the kidneys and get the serology including serum protein, electrophoresis, and MERRICK and ANCA to look for some other cause for renal failure. Avoid any nephrotoxins. Thank you for the consultation. I will follow the patient while he is in the hospital. Sharifa Khan MD AQJ/rm/do , 08:23 PM , 08:37 PM
[2018-08-09 05:55] LABS: Baso % (Auto) 0.4 % (0.0-2.0); Eos # (Auto) 0.3 th/mm3 (0.0-0.4); Eos % (Auto) 3.9 % (0.0-4.0); Hematocrit 29.6 % (39.0-51.0); Hemoglobin 9.7 gm/dL (13.0-17.0); Lymph # (Auto) 1.9 th/mm3 (1.0-4.8); Mean Corpuscular HGB Conc 32.6 % (32.0-36.0); Mean Corpuscular Hemoglobin 27.6 pg (27.0-34.0); Mean Corpuscular Volume 84.5 fL (80.0-100.0); Mean Platelet Volume 7.3 fL (7.0-11.0); Mono # (Auto) 0.7 th/mm3 (0.0-0.9); Neut # (Auto) 3.8 th/mm3 (1.8-7.7); Neut % (Auto) 56.7 % (16.0-70.0); Platelet Count 201 th/mm3 (150-450); Red Cell Distribution Width 18.8 % (11.6-17.2); White Blood Count 6.8 th/mm3 (4.0-11.0)
[2018-08-09 06:01] LABS: INR 1.2 Ratio; Prothrombin Time 12.6 sec (9.8-11.6)
[2018-08-09 06:24] LABS: Potassium 4.3 meq/L (3.5-5.1)
[2018-08-09 06:25] LABS: Calcium 7.9 mg/dL (8.5-10.1); Carbon Dioxide 25.5 meq/L (21.0-32.0); Phosphorus 4.8 mg/dL (2.5-4.9)
--- NOTE | 2018-08-09 09:29 | US ---
EXAM DATE: 08/09/2018 9:19 AM EST AGE/SEX: 63 years / Male INDICATIONS: Increased BUN and Creatinine. CLINICAL DATA: This is the patient's subsequent encounter. Patient reports that signs and symptoms h ave been present for 1 day and indicates a pain score of 0/10. MEDICAL/SURGICAL HISTORY: Hypercholesterolemia. Hypertension. Myocardial infarction. Coronar y artery disease. Congestive heart failure. Substance abuse. Chronic kidney disease. Appendectomy . CABG. Hernia repair. Back surgery. COMPARISON: [facility] – [place], 06/02/2017. . MEASUREMENTS: Right Kidney:__10.2 x 5.0 x 6.0 cm Left Kidney:__9.1 x 5.5 x 5.0 cm FINDINGS: Right Kidney: Increased echogenicity. No mass or hydronephrosis. Several subcentimeter simple cysts. Thin hypodensity about the cortex of the upper and lower pole suggesting possible subcapsular fluid. Left Kidney: Increased echogenicity. No mass or hydronephrosis. Several subcentimeter simple cysts. Hypodensity about the cortex of the upper and lower poles cysts possible subcapsular fluid. Bladder: Within normal limits given the degree of distension. Other: There is a thin hypodensity along the free edge of the liver suggesting possible ascites. CONCLUSION: 1. No evidence of mass or hydronephrosis. 2. There are hypodensities along the free edge of the liver and about the cortical margins of both k idneys suggests the possibility of free fluid or subcapsular fluid. Electronically signed by: John Dailey MD Board Certified Radiologist 08/09/2018 9:28 AM EST
[2018-08-09] MEDS: hydrALAZINE 25 MG Tablet PO SCH ×3 (09:45→17:56)
[2018-08-09] MEDS: amLODIPine 10 MG Tablet PO SCH (09:46)
[2018-08-09] MEDS: Furosemide 40 MG Tablet PO SCH (09:46)
[2018-08-09] MEDS: Atenolol 50 MG Tablet PO SCH (09:46)
[2018-08-09] MEDS: Gabapentin 100 MG Capsule PO SCH ×2 (09:46→20:36)
--- NOTE | 2018-08-09 11:34 | P.PNCA ---
Subjective Interval history: Patient denies any CP, pressure, palpitations or dizziness. He does complain of mild SOB and edema, that is improving. Medications and Allergies Allergies Allergy/AdvReac Type Severity Reaction Status Date / Time morphine AdvReac Intermediate Confusion Verified 07/24/17 00:01 Home Medications Medication Instructions Recorded Confirmed Type benzocaine-menthol 1 misty MUCOUS MEMBRANE Q2-4H PRN 06/12/18 08/03/18 History Active Medications: Active Medications Acetaminophen (Tylenol) 650 mg PO Q4H PRN PRN Reason: Temp > 100.4/pain Al Hydroxide/Mg Hydroxide (Milk Of Magnesia Liq) 30 ml PO Q12H PRN PRN Reason: Mild Constipation Last Admin: 08/09/18 09:44 Dose: 30 ml Albuterol (Duoneb Neb (Prn)) 1 ampul NEB Q2HR NEB PRN PRN Reason: SHORTNESS OF BREATH/WHEEZING Last Admin: 08/06/18 13:35 Dose: 1 ampul Amlodipine Besylate (Norvasc) 10 mg PO DAILY [facility] Last Admin: 08/09/18 09:46 Dose: 10 mg Atenolol (Tenormin) 50 mg PO DAILY [facility] Last Admin: 08/09/18 09:46 Dose: 50 mg Atorvastatin Calcium (Lipitor) 40 mg PO DAILY [facility] Last Admin: 08/09/18 09:46 Dose: 40 mg Bisacodyl (Dulcolax Supp) 10 mg RECTAL DAILY PRN PRN Reason: SEVERE CONSITIPATION Colchicine (Colcrys) 0.6 mg PO BID [facility] Last Admin: 08/09/18 09:46 Dose: 0.6 mg Furosemide (Lasix) 40 mg PO DAILY [facility] Last Admin: 08/09/18 09:46 Dose: 40 mg Gabapentin (Neurontin) 100 mg PO BID [facility] Last Admin: 08/09/18 09:46 Dose: 100 mg Hydralazine HCl (Apresoline) 75 mg PO TID [facility] Last Admin: 08/09/18 09:45 Dose: 75 mg Lactic Acid (Lac-Hydrin 12% Lotion) 1 applicatio TOPICAL BID [facility] Last Admin: 08/08/18 21:42 Dose: 1 applicatio Lactulose (Lactulose Liq) 30 ml PO DAILY PRN PRN Reason: SEVERE CONSITIPATION Last Admin: 08/08/18 14:27 Dose: 30 ml Melatonin (Melatonin) 5 mg PO HS PRN PRN Reason: INSOMNIA Last Admin: 08/08/18 21:38 Dose: 5 mg Ondansetron HCl (Zofran Inj) 4 mg IV.PUSH Q6H PRN PRN Reason: NAUSEA OR VOMITING Oxycodone/Acetaminophen (Percocet 5/325 Mg) 1 tab PO Q6H PRN PRN Reason: PAIN SCALE 6 TO 10 Last Admin: 08/09/18 09:47 Dose: 1 tab Pantoprazole Sodium (Protonix) 40 mg PO BID [facility] Last Admin: 08/09/18 09:46 Dose: 40 mg Pharmacy Profile Note (Coumadin Consult Pharmacy) 1 each OTHER UNSCH PRN PRN Reason: PHARMACY DOCUMENTATION Sennosides (Senokot) 17.2 mg PO Q12H PRN PRN Reason: Moderate Constipation Sodium Chloride (Ns Flush) 2 ml IV.FLUSH BID [facility] Last Admin: 08/08/18 21:38 Dose: 2 ml Sodium Chloride (Ns Flush) 2 ml IV.FLUSH PRN PRN PRN Reason: FLUSH AFTER USING IV ACCESS Tamsulosin HCl (Flomax) 0.4 mg PO DAILY [facility] Last Admin: 08/09/18 09:46 Dose: 0.4 mg Warfarin Sodium (Coumadin) 7.5 mg PO DAILY@1600 [facility] Last Admin: 08/08/18 17:06 Dose: 7.5 mg Physical Exam Vital signs: Vital Signs 08/08/18 12:00 08/08/18 13:00 08/08/18 14:00 Temperature 98.7 F Pulse Rate 68 65 65 Respiratory Rate 20 16 17 Blood Pressure 119/62 108/59 L 114/59 L Pulse Oximetry 95 91 L 94 L 08/08/18 15:00 08/08/18 16:00 08/08/18 20:00 Temperature 98.2 F Pulse Rate 64 66 67 Respiratory Rate 15 20 18 Blood Pressure 114/59 L 121/67 120/69 Pulse Oximetry 93 L 100 08/09/18 00:00 08/09/18 04:00 08/09/18 08:00 Temperature 98.7 F 98 F 98.3 F Pulse Rate 69 67 64 Respiratory Rate 20 24 16 Blood Pressure 117/69 125/71 116/65 Pulse Oximetry 97 93 L 98 Intake & Output 08/08/18 08/09/18 08/09/18 18:59 06:59 18:59 Intake Total 60 / 60 720 / 720 Output Total 625 / 625 Balance 60 / 60 95 / 95 Weight 90.9 kg Intake: IV 60 / 60 Protonix Inj 80 MG In NS Inj 60 / 60 100 ML @ 10 mls/hr IV.CONT Q10H [facility] Rx#:[id number] Oral 720 / 720 Output: Urine 625 / 625 Other: Date of Last Bowel Movement 08/03/18 08/03/18 - Constitutional no acute distress - Routine HEENT Exam Head: Present: normocephalic Eye: Present: PERRL ENT: Present: mucous membranes moist - Routine Neck Exam Present: full ROM - Routine Respiratory Exam Present: CTA bilaterally - Routine Cardiovascular Exam Present: S1, S2. Absent: murmur, gallop, rubs - Routine Abdominal Exam Present: normoactive bowel sounds - Routine Extremities Exam Present: edema, full ROM, pulses intact, normal capillary refill. Absent: cyanosis, clubbing - Routine Skin Exam Present: intact - Routine Neurological Exam Present: oriented X3 - Detailed Neurological Exam: Coma Scale Eye Opening: Spontaneous Verbal Response: Oriented Motor Response: Obey commands César Coma Scale Total: 15 - Routine Psychiatric Exam Present: normal affect Results 08/09/18 05:31 08/09/18 05:31 Coagulation 08/09/18 Range/Units 05:31 PT 12.6 H (9.8-11.6) sec CBC 08/09/18 Range/Units 05:31 WBC 6.8 (4.0-11.0) th/mm3 RBC 3.50 L (4.50-5.90) mil/mm3 Hgb 9.7 L (13.0-17.0) gm/dL Hct 29.6 L (39.0-51.0) % Plt Count 201 (150-450) th/mm3 Neut # (Auto) 3.8 (1.8-7.7) th/mm3 Lymph # (Auto) 1.9 (1.0-4.8) th/mm3 [place] # (Auto) 0.7 (0.0-0.9) th/mm3 Eos # (Auto) 0.3 (0.0-0.4) th/mm3 Baso # (Auto) 0.0 (0.0-0.2) th/mm3 Comprehensive Metabolic Panel 08/07/18 08/09/18 Range/Units 11:01 05:31 Sodium 144 141 (136-145) meq/L Potassium 4.3 4.3 (3.5-5.1) meq/L Chloride 109 H 105 (98-107) meq/L Carbon Dioxide 27.9 25.5 (21.0-32.0) meq/L BUN 55 H 61 H (7-18) mg/dL Creatinine 3.98 H 4.26 H (0.60-1.30) mg/dL Calcium 7.9 L 7.9 L (8.5-10.1) mg/dL Intake and Output 08/08/18 08/09/18 08/09/18 22:59 06:59 14:59 Intake Total 720 / 720 Output Total 625 / 625 Balance 95 / 95 Intake: Oral 720 / 720 Output: Urine 625 / 625 Other: Date of Last Bowel Movement 08/03/18 Weight 90.9 kg - Imaging and Cardiology Imaging: Impressions Venous Doppler Study 08/08/18 00:00 CONCLUSION: 1. Negative exam with no evidence of deep venous thrombosis. Abdomen/Bladder Ultrasound 08/09/18 00:00 CONCLUSION: 1. No evidence of mass or hydronephrosis. 2. There are hypodensities along the free edge of the liver and about the cortical margins of both kidneys suggests the possibility of free fluid or subcapsular fluid. Assessment and Plan - Assessment (1) Nonsustained ventricular tachycardia Code(s): I47.2 - Ventricular tachycardia Status: Acute (2) Hypertension Code(s): I10 - Essential (primary) hypertension Status: Chronic (3) CKD (chronic kidney disease) Code(s): N18.9 - Chronic kidney disease, unspecified Status: Chronic (4) H/O heart artery stent Code(s): Z95.5 - Presence of coronary angioplasty implant and graft Status: Acute (5) GI bleed Code(s): K92.2 - Gastrointestinal hemorrhage, unspecified Status: Acute (6) Anemia Code(s): D64.9 - Anemia, unspecified Status: Acute (7) Illicit drug use Code(s): F19.90 - Other psychoactive substance use, unspecified, uncomplicated Status: Acute (8) Cocaine abuse Code(s): F14.10 - Cocaine abuse, uncomplicated Status: Chronic (9) Noncompliance with medication regimen Code(s): Z91.14 - Patient's other noncompliance with medication regimen Status : Acute - Plan Check 2D echo to evaluate LV function. There are no new cardiac issues noted at this time. We will continue with current cardiac treatment plan. Nephrology evaluation and treatment in progress. GI evaluation and treatment in progress. We will continue to monitor patient during his hospitalization. The patient was seen and evaluated by Dr. Cunha who participated in care, management decision making. - Attending Attestation Patient seen and examined. I reviewed and agree with the evaluation and plan as presented. No significant arrhythmias. Continue beta gena. Increase activity. (2) Hypertension Qualifiers: Hypertension type: unspecified Qualified Code(s): I10 - Essential (primary) hypertension (3) CKD (chronic kidney disease) Qualifiers: Chronic kidney disease stage: unspecified stage Qualified Code(s): N18.9 - Chronic kidney disease, unspecified (5) GI bleed Qualifiers: GI bleed type/associated pathology: unspecified gastrointestinal hemorrhage type Qualified Code(s): K92.2 - Gastrointestinal hemorrhage, unspecified (6) Anemia Qualifiers: Anemia type: other cause Other causes of anemia: acute posthemorrhagic Qualified Code(s): D62 - Acute posthemorrhagic anemia
[2018-08-09] MEDS: Lactic Acid (Ammonium Lactate) 12% Lotion 225 GM Bottle TOPICAL SCH ×2 (11:41→20:37)
--- NOTE | 2018-08-09 12:10 | P.PNIM ---
Subjective Interval history: patient complains of pain in both ankles, rt greater than left. His left forearm is also swollen since yesterday, he says he had an IV line there which was removed. He reports significant improvement in his breathing. Physical Exam Vital signs: Vital Signs 08/08/18 13:00 08/08/18 14:00 08/08/18 15:00 Temperature Pulse Rate 65 65 64 Respiratory Rate 16 17 15 Blood Pressure 108/59 L 114/59 L 114/59 L Pulse Oximetry 91 L 94 L 93 L 08/08/18 16:00 08/08/18 20:00 08/09/18 00:00 Temperature 98.2 F 98.7 F Pulse Rate 66 67 69 Respiratory Rate 20 18 20 Blood Pressure 121/67 120/69 117/69 Pulse Oximetry 100 97 08/09/18 04:00 08/09/18 08:00 Temperature 98 F 98.3 F Pulse Rate 67 64 Respiratory Rate 24 16 Blood Pressure 125/71 116/65 Pulse Oximetry 93 L 98 Intake & Output 08/08/18 08/09/18 08/09/18 18:59 06:59 18:59 Intake Total 60 / 60 720 / 720 Output Total 625 / 625 Balance 60 / 60 95 / 95 Weight 90.9 kg Intake: IV 60 / 60 Protonix Inj 80 MG In NS Inj 60 / 60 100 ML @ 10 mls/hr IV.CONT Q10H [facility] Rx#:[id number] Oral 720 / 720 Output: Urine 625 / 625 Other: Date of Last Bowel Movement 08/03/18 08/03/18 08/03/18 Narrative: GENERAL: middle aged man, obese, not in distress, sitting in chair. HEENT:not pale,anicteric,nasal canula in situ CARDIOVASCULAR: Regular rate and rhythm,s1s2 normal, no murmurs. RESPIRATORY: equal air entry bilaterally, scattered creps basally, no wheezes. GASTROINTESTINAL: Abdomen soft, non-tender, nondistended. Normoactive bowel sounds MUSCULOSKELETAL: Extremities without clubbing, cyanosis.1+ edema bilaterally. Tenderness to palpation of the right ankle, swollen, mild erythema. Lt forearm and distal arm swollen and tender. NEUROLOGICAL: Awake and alert to person place time situation. Results Labs CBC & Chem 7: 08/09/18 05:31 08/10/18 06:39 Imaging Imaging: Impressions Abdomen/Bladder Ultrasound 08/09/18 00:00 CONCLUSION: 1. No evidence of mass or hydronephrosis. 2. There are hypodensities along the free edge of the liver and about the cortical margins of both kidneys suggests the possibility of free fluid or subcapsular fluid. Assessment and Plan (1) Nonsustained ventricular tachycardia: Code(s): I47.2 - Ventricular tachycardia Status: Acute (2) Hypertension: Code(s): I10 - Essential (primary) hypertension Status: Chronic (3) CKD (chronic kidney disease): Code(s): N18.9 - Chronic kidney disease, unspecified Status: Chronic (4) H/O heart artery stent: Code(s): Z95.5 - Presence of coronary angioplasty implant and graft Status: Acute (5) GI bleed: Code(s): K92.2 - Gastrointestinal hemorrhage, unspecified Status: Acute (6) Anemia: Code(s): D64.9 - Anemia, unspecified Status: Acute (7) Illicit drug use: Code(s): F19.90 - Other psychoactive substance use, unspecified, uncomplicated Status: Acute (8) Cocaine abuse: Code(s): F14.10 - Cocaine abuse, uncomplicated Status: Chronic (9) Noncompliance with medication regimen: Code(s): Z91.14 - Patient's other noncompliance with medication regimen Status: Acute Plan 63-year-old male with a history of hypertension, chronic kidney disease stage III, diastolic congestive heart failure presents with one week history of generalized weakness and shortness of breath with black tarry stools found to have Acute on chronic anemia due to active blood loss from GI bleed-transfused 2 units of packed red blood cells 08/03. Hgb has remained stable and GI team signed off. Acute on Chronic HFpEF- volume overload likely in the setting of recent blood products including FFP and prbc. Echocardiogram in June 2018 showed ejection fraction of 50-55% with LVH. Continue to monitor strict I/O,daily wts, low salt diet. 08/06 CXR noted with vague left upper lobe opacity, repeat is unchanged. Continue to titrate down oxygen as patient currently on 3L but not on home oxygen normally. Did not BiPAP last night. breathing improved. GI bleedrequired Vit k and FFP,prbc on admission. EGD showed chronic gastritis , no acute source of bleeding. PPI for 6-8 wks recommended. Stop aspirin.given that patient was only found with gastritis the benefits of A/ C outweigh risks of holding currently. Continue Coumadin, pharmacy to dose. Acute kidney injury superimposed on chronic kidney disease stage [id number] aspect likely prerenal due to GI bleed and diuresis, also possibility of cardiorenal syndrome. avoid nephrotoxins,dose meds to gfr. renal US with no evidence of hydronephrosis. Creatinine trending up, 4.2 today. nephrology consult appreciated. Acute gout flare-given worsening renal function, hold Colchicine, start on Prednisone 20mg daily for 3 days. Rule out right calf DVT, check ultrasound History of paroxysmal atrial fibrillationcontinue with atenolol. Coumadin restarted, INR 1.2 Hypertension history, uncontrolledcontinue atenolol and Norvasc. Increase hydralazine to 75 mg 3 times a day. Venous stasis dermatitisLac-Hydrin lotion to area. DVT prophylaxisSCDs Progress Note: Quality VTE Deep Vein Thrombosis/Pulmonary Embolism Present on Admission: No _ (1) GI bleed Qualifiers: GI bleed type/associated pathology: unspecified gastrointestinal hemorrhage type Gastritis type: Qualified Code(s): K92.2 - Gastrointestinal hemorrhage, unspecified (2) Anemia Qualifiers: Anemia type: other cause Bone marrow failure anemia type: Chronic kidney disease stage: Folate deficiency anemia type: Hemolytic anemia type: Iron deficiency anemia type: Other causes of anemia: acute posthemorrhagic Vitamin B12 deficiency anemia type: Qualified Code(s): D62 - Acute posthemorrhagic anemia (3) CKD (chronic kidney disease) Qualifiers: Chronic kidney disease stage: unspecified stage Qualified Code(s): N18.9 - Chronic kidney disease, unspecified (4) Hypertension Qualifiers: Hypertension type: unspecified Qualified Code(s): I10 - Essential (primary) hypertension
[2018-08-09] MEDS: predniSONE 20 MG Tablet PO SCH (13:15)
--- NOTE | 2018-08-09 16:22 | P.PNNP ---
Subjective Interval history: Seen in AM. No shortness of breath, chest pain, nausea, or vomiting. Creatinine 4.26 from 3.98. <Camryn Meng - Last Filed: 08/09/18 16:25> Physical Exam Vital signs: Vital Signs 08/08/18 20:00 08/09/18 00:00 08/09/18 04:00 Temperature 98.2 F 98.7 F 98 F Pulse Rate 67 69 67 Respiratory Rate 18 20 24 Blood Pressure 120/69 117/69 125/71 Pulse Oximetry 100 97 93 L 08/09/18 08:00 08/09/18 12:00 08/09/18 16:00 Temperature 98.3 F 98.4 F 98.0 F Pulse Rate 64 78 68 Respiratory Rate 16 16 16 Blood Pressure 116/65 99/58 L 98/53 L Pulse Oximetry 98 95 94 L Intake & Output 08/08/18 08/09/18 08/09/18 18:59 06:59 18:59 Intake Total 60 / 60 720 / 720 Output Total 625 / 625 Balance 60 / 60 95 / 95 Weight 90.9 kg Intake: IV 60 / 60 Protonix Inj 80 MG In NS Inj 60 / 60 100 ML @ 10 mls/hr IV.CONT Q10H [facility] Rx#:[id number] Oral 720 / 720 Output: Urine 625 / 625 Other: Date of Last Bowel Movement 08/03/18 08/03/18 08/03/18 Narrative: GENERAL: Alert and oriented. SKIN: Warm and dry. NECK: Supple, trachea midline. No JVD CARDIOVASCULAR: Regular rate and rhythm without murmurs, gallops, or rubs. RESPIRATORY: Breath sounds equal bilaterally. No accessory muscle use. GASTROINTESTINAL: Abdomen soft, non-tender, nondistended. MUSCULOSKELETAL: No cyanosis, or edema. BACK: Nontender without obvious deformity. No CVA tenderness. <Camryn Meng - Last Filed: 08/09/18 16:25> Vital signs: Vital Signs 08/11/18 00:00 08/11/18 03:56 08/11/18 04:40 Temperature 97.7 F 96.9 F L Pulse Rate 61 64 60 Respiratory Rate 18 18 Blood Pressure 122/60 123/67 Pulse Oximetry 93 L 93 L 08/11/18 08:00 08/11/18 09:08/11/18 12:00 Temperature 97.7 F 98.1 F Pulse Rate 72 61 61 Respiratory Rate 19 19 Blood Pressure 148/69 H 135/79 Pulse Oximetry 93 L 95 08/11/18 16:00 08/11/18 20:00 Temperature 98.1 F 97.4 F L Pulse Rate 58 L 60 Respiratory Rate 18 20 Blood Pressure 138/81 124/69 Pulse Oximetry 95 94 L Intake & Output 08/11/18 08/11/18 08/12/18 06:59 18:59 06:59 Intake Total 110 / 110 Balance 110 / 110 Weight 91.5 kg Intake: IV 110 / 110 Venofer Inj 200 MG In NS Inj 110 / 110 100 ML @ 110 mls/hr IV.SIG DAILY [facility] Rx#:[id number] Other: # Voids 3 Date of Last Bowel Movement 08/10/18 08/11/18 <Gia Khan - Last Filed: 08/11/18 21:58> Assessment and Plan - Assessment (1) Acute kidney injury superimposed on chronic kidney disease Code(s): N17.9 - Acute kidney failure, unspecified; N18.9 - Chronic kidney disease, unspecified Status: Acute Plan: The patient has chronic kidney disease and has minimal proteinuria. Most likely, the patient has hypertensive renovascular disease causing renal failure. Advanced stage IV renal disease and baseline his GFR was around 23-24. There is some acute element with some worsening of the GFR and the creatinine. This could be either because of diuretics or it could be from the cardiorenal syndrome. Renal ultrasound with no evidence of mass or hydronephrosis. There are hyperdensities along the free edge of the liver and about the cortical margins of both kidneys suggests the possibility of free fluid or subcapsular fluid. Serology and SPEP pending Avoid any nephrotoxins including IV contrast and NSAIDS. On lasix 40 mg daily if creatinine continues to increase may need to hold. Will follow urinary output and BMP Labs in AM (2) A-fib Code(s): I48.91 - Unspecified atrial fibrillation Status: Acute Plan: On warfarin. Sub therapeutic. (3) Anemia Code(s): D64.9 - Anemia, unspecified Status: Acute Qualifiers: Anemia type: other cause Other causes of anemia: acute posthemorrhagic Qualified Code(s): D62 - Acute posthemorrhagic anemia Plan: HGB at 9.7, will order iron panel. May benefit from procrit. (4) Hypertension Code(s): I10 - Essential (primary) hypertension Status: Chronic Qualifiers: Hypertension type: unspecified Qualified Code(s): I10 - Essential (primary ) hypertension Plan: Blood pressure on lower side. Hydralazine decreased. <Camryn Meng - Last Filed: 08/09/18 16:25> - Assessment (1) Acute kidney injury superimposed on chronic kidney disease Code(s): N17.9 - Acute kidney failure, unspecified; N18.9 - Chronic kidney disease, unspecified Status: Acute Plan: Patient seen and examined, agree with above. Creatinine still elevated, Continue Lasix, will hold if Creatinine continue to increase. (2) A-fib Code(s): I48.91 - Unspecified atrial fibrillation Status: Acute (3) Anemia Code(s): D64.9 - Anemia, unspecified Status: Acute Qualifiers: Anemia type: other cause Other causes of anemia: acute posthemorrhagic Qualified Code(s): D62 - Acute posthemorrhagic anemia (4) Hypertension Code(s): I10 - Essential (primary) hypertension Status: Chronic Qualifiers: Hypertension type: unspecified Qualified Code(s): I10 - Essential (primary ) hypertension <Gia Khan - Last Filed: 08/11/18 21:58>
--- NOTE | 2018-08-09 16:35 | ECHRPT ---
Indication: HEART FAILURE CONCLUSIONS Normal left ventricular size. Moderate concentric left ventricular hypertrophy. The left ventricular systolic function is low normal with an estimated ejection fraction in the rang e of 50- 55%. Mitral annular calcification is present. Trace mitral valve regurgitation. Aortic valve sclerosis is present. There is trace tricuspid valve regurgitation. The estimated pulmonary arterial pressure is 20 mmHg. BP: / HR: Rhythm: MEASUREMENTS (Male / Female) Normal Values Technical Quality: 2D ECHO LV Diastolic Diameter PLAX 4.3 cm 4.2 - 5.9 / 3.9 - 5.3 cm LV Systolic Diameter PLAX 3.4 cm IVS Diastolic Thickness 1.6 cm 0.6 - 1.0 / 0.6 - 0.9 cm LVPW Diastolic Thickness 1.1 cm 0.6 - 1.0 / 0.6 - 0.9 cm LV Relative Wall Thickness 0.6 LA Systolic Diameter LX 4.1 cm 3.0 - 4.0 / 2.7 - 3.8 cm DOPPLER TR Peak Velocity 156.0 cm/s TR Peak Gradient 9.7 mmHg Right Atrial Pressure 10.0 mmHg Pulmonary Artery Systolic Pressu 19.7 mmHg Right Ventricular Systolic Press 19.7 mmHg FINDINGS LEFT VENTRICLE Normal left ventricular size. Moderate concentric left ventricular hypertrophy. The left ventricular systolic function is low normal with an estimated ejection fraction in the rang e of 50- 55%. RIGHT VENTRICLE Normal right ventricular size and systolic function. LEFT ATRIUM The left atrial size is normal. RIGHT ATRIUM The right atrial size is normal. ATRIAL SEPTUM Bowing atrial septum AORTA The aortic root and proximal ascending aorta are normal in size on limited imaging. MITRAL VALVE Mitral annular calcification is present. Trace mitral valve regurgitation. AORTIC VALVE Aortic valve sclerosis is present. TRICUSPID VALVE There is trace tricuspid valve regurgitation. The estimated pulmonary arterial pressure is 20 mmHg. PULMONARY VALVE No pulmonary valve regurgitation or stenosis. VESSELS The inferior vena cava is normal in size. PERICARDIUM No pericardial effusion. Marcell Covington MD, FACC (Electronically Signed) Final Date:09 August 2018 16:34
[2018-08-10 04:34] LABS: INR 1.6 Ratio; Prothrombin Time 15.8 sec (9.8-11.6)
[2018-08-10 07:20] LABS: Albumin 2.3 g/dL (3.4-5.0); Carbon Dioxide 26.1 meq/L (21.0-32.0); Potassium 4.7 meq/L (3.5-5.1)
[2018-08-10 07:21] LABS: Phosphorus 4.5 mg/dL (2.5-4.9)
[2018-08-10 07:25] LABS: % Iron Saturation 5.3 % (20-50)
[2018-08-10] MEDS: Gabapentin 100 MG Capsule PO SCH ×2 (08:46→20:08)
[2018-08-10] MEDS: Furosemide 40 MG Tablet PO SCH (08:47)
[2018-08-10] MEDS: hydrALAZINE 25 MG Tablet PO SCH ×3 (08:47→17:45)
[2018-08-10] MEDS: amLODIPine 10 MG Tablet PO SCH (08:47)
[2018-08-10] MEDS: predniSONE 20 MG Tablet PO SCH (08:48)
[2018-08-10] MEDS: Atenolol 50 MG Tablet PO SCH (08:48)
[2018-08-10] MEDS: Lactic Acid (Ammonium Lactate) 12% Lotion 225 GM Bottle TOPICAL SCH ×2 (08:54→20:09)
--- NOTE | 2018-08-10 11:49 | P.PNNP ---
Subjective Interval history: Sitting up in chair reports that he feels much better. Creatinine slightly improved at 4.1. Denies any shortness of breath, nausea, vomiting or diarrhea. <Camryn Meng - Last Filed: 08/10/18 11:44> Physical Exam Vital signs: Vital Signs 08/09/18 12:00 08/09/18 16:00 08/09/18 19:54 Temperature 98.4 F 98.0 F Pulse Rate 78 68 65 Respiratory Rate 16 16 Blood Pressure 99/58 L 98/53 L Pulse Oximetry 95 94 L 08/09/18 20:00 08/10/18 00:00 08/10/18 00:04 Temperature 98 F 98 F Pulse Rate 65 65 63 Respiratory Rate 18 18 Blood Pressure 105/57 L 105/57 L Pulse Oximetry 92 L 92 L 08/10/18 03:51 08/10/18 04:00 08/10/18 08:00 Temperature 97.2 F L 97.8 F Pulse Rate 59 L 60 59 L Respiratory Rate 20 19 Blood Pressure 124/66 114/57 L Pulse Oximetry 94 L 91 L 08/10/18 08:20 08/10/18 08:37 Temperature Pulse Rate 65 64 Respiratory Rate Blood Pressure Pulse Oximetry Intake & Output 08/09/18 08/10/18 08/10/18 18:59 06:59 18:59 Intake Total 240 / 240 Balance 240 / 240 Weight 84.7 kg Intake: Oral 240 / 240 Other: # Voids 7 Date of Last Bowel Movement 08/03/18 08/09/18 08/09/18 # Bowel Movements 2 Narrative: GENERAL: Alert and oriented. SKIN: Warm and dry. NECK: Supple, trachea midline. No JVD CARDIOVASCULAR: Regular rate and rhythm without murmurs, gallops, or rubs. RESPIRATORY: Breath sounds equal bilaterally. No accessory muscle use. GASTROINTESTINAL: Abdomen soft, non-tender, nondistended. MUSCULOSKELETAL: No cyanosis, left arm edematous BACK: Nontender without obvious deformity. No CVA tenderness. <Camryn Meng - Last Filed: 08/10/18 11:44> Vital signs: Vital Signs 08/10/18 00:00 08/10/18 00:04 08/10/18 03:51 Temperature 98 F Pulse Rate 65 63 59 L Respiratory Rate 18 Blood Pressure 105/57 L Pulse Oximetry 92 L 02/15/19 04:00 08/10/18 08:00 08/10/18 08:20 Temperature 97.2 F L 97.8 F Pulse Rate 60 59 L 65 Respiratory Rate 20 19 Blood Pressure 124/66 114/57 L Pulse Oximetry 94 L 91 L 08/10/18 08:37 08/10/18 12:00 08/10/18 16:00 Temperature 97.6 F 98.1 F Pulse Rate 64 68 62 Respiratory Rate 18 18 Blood Pressure 112/62 115/65 Pulse Oximetry 95 93 L 08/10/18 20:00 Temperature 98.1 F Pulse Rate 60 Respiratory Rate 18 Blood Pressure 133/70 Pulse Oximetry 93 L Intake & Output 08/10/18 08/10/18 08/11/18 06:59 18:59 06:59 Intake Total 240 / 240 1310 / 1310 Output Total 300 / 300 Balance 240 / 240 1010 / 1010 Weight 84.7 kg Intake: IV 110 / 110 Venofer Inj 200 MG In NS Inj 110 / 110 100 ML @ 110 mls/hr IV.SIG DAILY [facility] Rx#:[id number] Oral 240 / 240 1200 / 1200 Output: Urine 300 / 300 Other: # Voids 7 3 Date of Last Bowel Movement 08/09/18 08/09/18 08/10/18 # Bowel Movements 2 <Gia Khan - Last Filed: 08/10/18 23:10> Assessment and Plan - Assessment (1) Acute kidney injury superimposed on chronic kidney disease Code(s): N17.9 - Acute kidney failure, unspecified; N18.9 - Chronic kidney disease, unspecified Status: Acute Plan: The patient has chronic kidney disease and has minimal proteinuria. Most likely, the patient has hypertensive renovascular disease causing renal failure. Advanced stage IV renal disease and baseline his GFR was around 23-24. There is some acute element with some worsening of the GFR and the creatinine. This could be either because of diuretics or it could be from the cardiorenal syndrome. Renal ultrasound with no evidence of mass or hydronephrosis. There are hyperdensities along the free edge of the liver and about the cortical margins of both kidneys suggests the possibility of free fluid or subcapsular fluid. Serology and SPEP pending Avoid any nephrotoxins including IV contrast and NSAIDS. Continue lasix 40 mg daily Creatinine slightly improved at 4.1 and fluid/electrolytes stable. Will follow urinary output and BMP Labs in AM (2) A-fib Code(s): I48.91 - Unspecified atrial fibrillation Status: Acute Plan: On warfarin. Sub therapeutic. (3) Anemia Code(s): D64.9 - Anemia, unspecified Status: Acute Qualifiers: Anemia type: other cause Other causes of anemia: acute posthemorrhagic Qualified Code(s): D62 - Acute posthemorrhagic anemia Plan: HGB at 9.7, Iron sat at 5.3, will order venofer. (4) Hypertension Code(s): I10 - Essential (primary) hypertension Status: Chronic Qualifiers: Hypertension type: unspecified Qualified Code(s): I10 - Essential (primary ) hypertension Plan: Hypotension has improved, blood pressure medication adjusted yesterday. <Camryn Meng - Last Filed: 08/10/18 11:44> - Assessment (1) Acute kidney injury superimposed on chronic kidney disease Code(s): N17.9 - Acute kidney failure, unspecified; N18.9 - Chronic kidney disease, unspecified Status: Acute Plan: Patient seen and examined, agree with above. Continue Lasix , Creatinine is slightly better, 4.1. Follow the urine out put and BMP. (2) A-fib Code(s): I48.91 - Unspecified atrial fibrillation Status: Acute (3) Anemia Code(s): D64.9 - Anemia, unspecified Status: Acute Qualifiers: Anemia type: other cause Other causes of anemia: acute posthemorrhagic Qualified Code(s): D62 - Acute posthemorrhagic anemia (4) Hypertension Code(s): I10 - Essential (primary) hypertension Status: Chronic Qualifiers: Hypertension type: unspecified Qualified Code(s): I10 - Essential (primary ) hypertension <Gia Khan - Last Filed: 08/10/18 23:10>
--- NOTE | 2018-08-10 12:24 | P.PNIM ---
Subjective Interval history: patient reports improvement in ankle pains. no shortness of breath. Physical Exam Vital signs: Vital Signs 08/09/18 16:00 08/09/18 19:54 08/09/18 20:00 Temperature 98.0 F 98 F Pulse Rate 68 65 65 Respiratory Rate 16 18 Blood Pressure 98/53 L 105/57 L Pulse Oximetry 94 L 92 L 08/10/18 00:00 08/10/18 00:04 08/10/18 03:51 Temperature 98 F Pulse Rate 65 63 59 L Respiratory Rate 18 Blood Pressure 105/57 L Pulse Oximetry 92 L 08/10/18 04:00 08/10/18 08:00 08/10/18 08:20 Temperature 97.2 F L 97.8 F Pulse Rate 60 59 L 65 Respiratory Rate 20 19 Blood Pressure 124/66 114/57 L Pulse Oximetry 94 L 91 L 08/10/18 08:37 08/10/18 12:00 Temperature 97.6 F Pulse Rate 64 63 Respiratory Rate 18 Blood Pressure 112/62 Pulse Oximetry 95 Intake & Output 08/09/18 08/10/18 08/10/18 18:59 06:59 18:59 Intake Total 240 / 240 Balance 240 / 240 Weight 84.7 kg Intake: Oral 240 / 240 Other: # Voids 7 Date of Last Bowel Movement 08/03/18 08/09/18 08/09/18 # Bowel Movements 2 Narrative: GENERAL: middle aged man, obese, not in distress, sitting in chair. HEENT:not pale,anicteric,nasal canula in situ CARDIOVASCULAR: Regular rate and rhythm,s1s2 normal, no murmurs. RESPIRATORY: equal air entry bilaterally, scattered creps basally, no wheezes. GASTROINTESTINAL: Abdomen soft, non-tender, nondistended. Normoactive bowel sounds MUSCULOSKELETAL: Extremities without clubbing, cyanosis.1+ edema bilaterally. ight ankle, swollen, mild erythema,mildly tender. Lt forearm and distal arm swelling improving. NEUROLOGICAL: Awake and alert to person place time situation. Results Labs CBC & Chem 7: 08/09/18 05:31 08/10/18 06:39 Assessment and Plan (1) Nonsustained ventricular tachycardia: Code(s): I47.2 - Ventricular tachycardia Status: Acute (2) Hypertension: Code(s): I10 - Essential (primary) hypertension Status: Chronic (3) CKD (chronic kidney disease): Code(s): N18.9 - Chronic kidney disease, unspecified Status: Chronic (4) H/O heart artery stent: Code(s): Z95.5 - Presence of coronary angioplasty implant and graft Status: Acute (5) GI bleed: Code(s): K92.2 - Gastrointestinal hemorrhage, unspecified Status: Acute (6) Anemia: Code(s): D64.9 - Anemia, unspecified Status: Acute (7) Illicit drug use: Code(s): F19.90 - Other psychoactive substance use, unspecified, uncomplicated Status: Acute (8) Cocaine abuse: Code(s): F14.10 - Cocaine abuse, uncomplicated Status: Chronic (9) Noncompliance with medication regimen: Code(s): Z91.14 - Patient's other noncompliance with medication regimen Status: Acute Plan 63-year-old male with a history of hypertension, chronic kidney disease stage III, diastolic congestive heart failure presents with one week history of generalized weakness and shortness of breath with black tarry stools found to have Acute on chronic anemia due to active blood loss from GI bleed-transfused 2 units of packed red blood cells 08/03. Hgb has remained stable and GI team signed off. Acute on Chronic HFpEF- volume overload likely in the setting of recent blood products including FFP and prbc. Echocardiogram in June 2018 showed ejection fraction of 50-55% with LVH. Continue to monitor strict I/O,daily wts, low salt diet. 08/06 CXR noted with vague left upper lobe opacity, repeat is unchanged. Oxygen tapered down to room air. breathing improved. GI bleedrequired Vit k and FFP,prbc on admission. EGD showed chronic gastritis , no acute source of bleeding. PPI for 6-8 wks recommended. Stop aspirin.given that patient was only found with gastritis the benefits of A/ C outweigh risks of holding currently. Continue Coumadin, pharmacy to dose. Acute kidney injury superimposed on chronic kidney disease stage [id number] aspect likely prerenal due to GI bleed and diuresis, also possibility of cardiorenal syndrome. avoid nephrotoxins,dose meds to gfr. renal US with no evidence of hydronephrosis. serology and SPEP pending. Creatinine trending up, 4.1today. nephrology consult appreciated. Acute gout flare-given worsening renal function, hold Colchicine, start on Prednisone 20mg daily for 3 days--pain improving. DVT ruled out with negative US. History of paroxysmal atrial fibrillationcontinue with atenolol. Coumadin restarted, INR 1.6 today, continue to monitor. HypertensionBP low normal range, continue atenolol and Norvasc. Hydralazine was decreased to 25 mg 3 times a day. Venous stasis dermatitisLac-Hydrin lotion to area. DVT prophylaxisSCDs Progress Note: Quality VTE Deep Vein Thrombosis/Pulmonary Embolism Present on Admission: No _ (1) Hypertension Qualifiers: Hypertension type: unspecified Qualified Code(s): I10 - Essential (primary) hypertension (2) CKD (chronic kidney disease) Qualifiers: Chronic kidney disease stage: unspecified stage Qualified Code(s): N18.9 - Chronic kidney disease, unspecified (3) GI bleed Qualifiers: GI bleed type/associated pathology: unspecified gastrointestinal hemorrhage type Gastritis type: Qualified Code(s): K92.2 - Gastrointestinal hemorrhage, unspecified (4) Anemia Qualifiers: Anemia type: other cause Bone marrow failure anemia type: Chronic kidney disease stage: Folate deficiency anemia type: Hemolytic anemia type: Iron deficiency anemia type: Other causes of anemia: acute posthemorrhagic Vitamin B12 deficiency anemia type: Qualified Code(s): D62 - Acute posthemorrhagic anemia
[2018-08-10] MEDS: Iron Sucrose Complex Inj 200 MG in Sodium Chlor 0.9% Inj 100 ML IV.SIG SCH (14:03)
[2018-08-10 14:27] LABS: Anti-Nuclear Antibody Screen Pos (Neg)
--- NOTE | 2018-08-10 15:00 | P.PNCA ---
Subjective Interval history: Patients denies any CP or SOB. He states that he is feeling fine. Medications and Allergies Allergies Allergy/AdvReac Type Severity Reaction Status Date / Time morphine AdvReac Intermediate Confusion Verified 07/24/17 00:01 Home Medications Medication Instructions Recorded Confirmed Type benzocaine-menthol 1 misty MUCOUS MEMBRANE Q2-4H PRN 06/12/18 08/03/18 History Active Medications: Active Medications Acetaminophen (Tylenol) 650 mg PO Q4H PRN PRN Reason: Temp > 100.4/pain Al Hydroxide/Mg Hydroxide (Milk Of Magnxavier Liq) 30 ml PO Q12H PRN PRN Reason: Mild Constipation Last Admin: 08/09/18 09:44 Dose: 30 ml Albuterol (Duoneb Neb (Prn)) 1 ampul NEB Q2HR NEB PRN PRN Reason: SHORTNESS OF BREATH/WHEEZING Last Admin: 08/06/18 13:35 Dose: 1 ampul Amlodipine Besylate (Norvasc) 10 mg PO DAILY [facility] Last Admin: 08/10/18 08:47 Dose: 10 mg Atenolol (Tenormin) 50 mg PO DAILY [facility] Last Admin: 08/10/18 08:48 Dose: 50 mg Atorvastatin Calcium (Lipitor) 40 mg PO DAILY [facility] Last Admin: 08/10/18 08:47 Dose: 40 mg Bisacodyl (Dulcolax Supp) 10 mg RECTAL DAILY PRN PRN Reason: SEVERE CONSITIPATION Colchicine (Colcrys) 0.6 mg PO BID [facility] Last Admin: 08/09/18 09:46 Dose: 0.6 mg Furosemide (Lasix) 40 mg PO DAILY [facility] Last Admin: 08/10/18 08:47 Dose: 40 mg Gabapentin (Neurontin) 100 mg PO BID [facility] Last Admin: 08/10/18 08:46 Dose: 100 mg Hydralazine HCl (Apresoline) 25 mg PO TID [facility] Last Admin: 08/10/18 12:28 Dose: 25 mg Iron Sucrose 200 mg/ Sodium (Chloride) 110 mls @ 110 mls/hr IV.SIG DAILY [facility] Stop: 08/12/18 09:59 Last Admin: 08/10/18 14:03 Dose: 110 mls/hr Lactic Acid (Lac-Hydrin 12% Lotion) 1 applicatio TOPICAL BID [facility] Last Admin: 08/10/18 08:54 Dose: 1 applicatio Lactulose (Lactulose Liq) 30 ml PO DAILY PRN PRN Reason: SEVERE CONSITIPATION Last Admin: 08/08/18 14:27 Dose: 30 ml Melatonin (Melatonin) 5 mg PO HS PRN PRN Reason: INSOMNIA Last Admin: 08/08/18 21:38 Dose: 5 mg Ondansetron HCl (Zofran Inj) 4 mg IV.PUSH Q6H PRN PRN Reason: NAUSEA OR VOMITING Oxycodone/Acetaminophen (Percocet 5/325 Mg) 1 tab PO Q6H PRN PRN Reason: PAIN SCALE 6 TO 10 Last Admin: 08/10/18 08:48 Dose: 1 tab Pantoprazole Sodium (Protonix) 40 mg PO BID [facility] Last Admin: 08/10/18 08:47 Dose: 40 mg Pharmacy Profile Note (Coumadin Consult Pharmacy) 1 each OTHER UNSCH PRN PRN Reason: PHARMACY DOCUMENTATION Prednisone (Deltasone) 20 mg PO DAILY [facility] Stop: 08/12/18 23:59 Last Admin: 08/10/18 08:48 Dose: 20 mg Sennosides (Senokot) 17.2 mg PO Q12H PRN PRN Reason: Moderate Constipation Sodium Chloride (Ns Flush) 2 ml IV.FLUSH BID [facility] Last Admin: 08/10/18 08:51 Dose: 2 ml Sodium Chloride (Ns Flush) 2 ml IV.FLUSH PRN PRN PRN Reason: FLUSH AFTER USING IV ACCESS Tamsulosin HCl (Flomax) 0.4 mg PO DAILY [facility] Last Admin: 08/10/18 08:47 Dose: 0.4 mg Warfarin Sodium (Coumadin) 7.5 mg PO DAILY@1600 [facility] Last Admin: 08/09/18 15:46 Dose: 7.5 mg Physical Exam Vital signs: Vital Signs 08/09/18 16:00 08/09/18 19:54 08/09/18 20:00 Temperature 98.0 F 98 F Pulse Rate 68 65 65 Respiratory Rate 16 18 Blood Pressure 98/53 L 105/57 L Pulse Oximetry 94 L 92 L 08/10/18 00:00 08/10/18 00:04 08/10/18 03:51 Temperature 98 F Pulse Rate 65 63 59 L Respiratory Rate 18 Blood Pressure 105/57 L Pulse Oximetry 92 L 08/10/18 04:00 08/10/18 08:00 08/10/18 08:20 Temperature 97.2 F L 97.8 F Pulse Rate 60 59 L 65 Respiratory Rate 20 19 Blood Pressure 124/66 114/57 L Pulse Oximetry 94 L 91 L 08/10/18 08:37 08/10/18 12:00 Temperature 97.6 F Pulse Rate 64 68 Respiratory Rate 18 Blood Pressure 112/62 Pulse Oximetry 95 Intake & Output 08/09/18 08/10/18 08/10/18 18:59 06:59 18:59 Intake Total 240 / 240 Balance 240 / 240 Weight 84.7 kg Intake: Oral 240 / 240 Other: # Voids 7 Date of Last Bowel Movement 08/03/18 08/09/18 08/09/18 # Bowel Movements 2 - Constitutional no acute distress - Routine HEENT Exam Head: Present: normocephalic Eye: Present: PERRL ENT: Present: mucous membranes moist - Routine Neck Exam Present: full ROM - Routine Respiratory Exam Present: CTA bilaterally - Routine Cardiovascular Exam Present: S1, S2. Absent: murmur, gallop, rubs - Routine Abdominal Exam Present: soft, normoactive bowel sounds, distended - Routine Extremities Exam Present: full ROM, pulses intact, normal capillary refill. Absent: cyanosis, clubbing, edema - Routine Skin Exam Present: intact - Routine Neurological Exam Present: oriented X3 - Detailed Neurological Exam: Coma Scale Eye Opening: Spontaneous Verbal Response: Oriented Motor Response: Obey commands César Coma Scale Total: 15 - Routine Psychiatric Exam Present: normal affect Results 08/09/18 05:31 08/10/18 06:39 Coagulation 08/09/18 08/10/18 Range/Units 05:31 04:05 PT 12.6 H 15.8 H (9.8-11.6) sec CBC 08/09/18 Range/Units 05:31 WBC 6.8 (4.0-11.0) th/mm3 RBC 3.50 L (4.50-5.90) mil/mm3 Hgb 9.7 L (13.0-17.0) gm/dL Hct 29.6 L (39.0-51.0) % Plt Count 201 (150-450) th/mm3 Neut # (Auto) 3.8 (1.8-7.7) th/mm3 Lymph # (Auto) 1.9 (1.0-4.8) th/mm3 Greer # (Auto) 0.7 (0.0-0.9) th/mm3 Eos # (Auto) 0.3 (0.0-0.4) th/mm3 Baso # (Auto) 0.0 (0.0-0.2) th/mm3 Comprehensive Metabolic Panel 08/09/18 08/10/18 Range/Units 05:31 06:39 Sodium 141 140 (136-145) meq/L Potassium 4.3 4.7 (3.5-5.1) meq/L Chloride 105 106 (98-107) meq/L Carbon Dioxide 25.5 26.1 (21.0-32.0) meq/L BUN 61 H 69 H (7-18) mg/dL Creatinine 4.26 H 4.11 H (0.60-1.30) mg/dL Calcium 7.9 L 8.0 L (8.5-10.1) mg/dL Albumin 2.3 L (3.4-5.0) g/dL Intake and Output 08/09/18 08/10/18 08/10/18 22:59 06:59 14:59 Intake Total 240 / 240 Balance 240 / 240 Intake: Oral 240 / 240 Other: # Voids 7 Date of Last Bowel Movement 08/09/18 08/09/18 # Bowel Movements 2 Weight 84.7 kg - Imaging and Cardiology Imaging: Impressions Abdomen/Bladder Ultrasound 08/09/18 00:00 CONCLUSION: 1. No evidence of mass or hydronephrosis. 2. There are hypodensities along the free edge of the liver and about the cortical margins of both kidneys suggests the possibility of free fluid or subcapsular fluid. Assessment and Plan - Assessment (1) Nonsustained ventricular tachycardia Code(s): I47.2 - Ventricular tachycardia Status: Acute (2) Hypertension Code(s): I10 - Essential (primary) hypertension Status: Chronic (3) CKD (chronic kidney disease) Code(s): N18.9 - Chronic kidney disease, unspecified Status: Chronic (4) H/O heart artery stent Code(s): Z95.5 - Presence of coronary angioplasty implant and graft Status: Acute (5) GI bleed Code(s): K92.2 - Gastrointestinal hemorrhage, unspecified Status: Acute (6) Anemia Code(s): D64.9 - Anemia, unspecified Status: Acute (7) Illicit drug use Code(s): F19.90 - Other psychoactive substance use, unspecified, uncomplicated Status: Acute (8) Cocaine abuse Code(s): F14.10 - Cocaine abuse, uncomplicated Status: Chronic (9) Noncompliance with medication regimen Code(s): Z91.14 - Patient's other noncompliance with medication regimen Status : Acute - Plan There are no new cardiac issues noted at this time, we will continue with current cardiac treatment plan and adjust as needed. 2D echo on 08/09/18 showed moderate LV hypertrophy, EF 50-55%, trace MR and trace TR. Renal function remains impaired with slight improvement, nephrology evaluation and treatment in progress. We will continue to monitor patient during his hospitalization. The patient was seen and evaluated by Dr. Cunha who participated in care, management decision making. - Attending Attestation Patient seen and examined. I reviewed and agree with the evaluation and plan as presented. No recurrent arrhythmias. Echo with preserved LV systolic function. Continue current program. Increase activity. (2) Hypertension Qualifiers: Hypertension type: unspecified Qualified Code(s): I10 - Essential (primary) hypertension (3) CKD (chronic kidney disease) Qualifiers: Chronic kidney disease stage: unspecified stage Qualified Code(s): N18.9 - Chronic kidney disease, unspecified (5) GI bleed Qualifiers: GI bleed type/associated pathology: unspecified gastrointestinal hemorrhage type Qualified Code(s): K92.2 - Gastrointestinal hemorrhage, unspecified (6) Anemia Qualifiers: Anemia type: other cause Other causes of anemia: acute posthemorrhagic Qualified Code(s): D62 - Acute posthemorrhagic anemia
[2018-08-11 08:13] LABS: INR 2.4 Ratio; Prothrombin Time 23.9 sec (9.8-11.6)
[2018-08-11 08:24] LABS: Albumin 2.4 g/dL (3.4-5.0); Calcium 7.9 mg/dL (8.5-10.1); Carbon Dioxide 25.2 meq/L (21.0-32.0); Phosphorus 3.6 mg/dL (2.5-4.9); Potassium 4.7 meq/L (3.5-5.1)
[2018-08-11] MEDS: Gabapentin 100 MG Capsule PO SCH ×2 (09:19→20:16)
[2018-08-11] MEDS: amLODIPine 10 MG Tablet PO SCH (09:19)
[2018-08-11] MEDS: hydrALAZINE 25 MG Tablet PO SCH ×3 (09:19→17:44)
[2018-08-11] MEDS: Furosemide 40 MG Tablet PO SCH (09:19)
[2018-08-11] MEDS: Atenolol 50 MG Tablet PO SCH (09:20)
[2018-08-11] MEDS: Iron Sucrose Complex Inj 200 MG in Sodium Chlor 0.9% Inj 100 ML IV.SIG SCH (09:20)
[2018-08-11] MEDS: predniSONE 20 MG Tablet PO SCH (09:20)
[2018-08-11] MEDS: Lactic Acid (Ammonium Lactate) 12% Lotion 225 GM Bottle TOPICAL SCH ×2 (09:20→20:17)
--- NOTE | 2018-08-11 11:04 | P.PNIM ---
Subjective Interval history: no complaints, feeling well. no ankle pain. no shortness of breath. Physical Exam Vital signs: Vital Signs 08/10/18 12:00 08/10/18 16:00 08/10/18 20:00 Temperature 97.6 F 98.1 F 98.1 F Pulse Rate 68 62 60 Respiratory Rate 18 18 18 Blood Pressure 112/62 115/65 133/70 Pulse Oximetry 95 93 L 93 L 08/11/18 00:00 08/11/18 03:56 08/11/18 04:40 Temperature 97.7 F 96.9 F L Pulse Rate 61 64 60 Respiratory Rate 18 18 Blood Pressure 122/60 123/67 Pulse Oximetry 93 L 93 L 08/11/18 08:00 Temperature 97.7 F Pulse Rate 72 Respiratory Rate 19 Blood Pressure 148/69 H Pulse Oximetry 93 L Intake & Output 08/10/18 08/11/18 08/11/18 18:59 06:59 18:59 Intake Total 1310 / 1310 Output Total 300 / 300 Balance 1010 / 1010 Weight 91.5 kg Intake: IV 110 / 110 Venofer Inj 200 MG In NS Inj 110 / 110 100 ML @ 110 mls/hr IV.SIG DAILY [facility] Rx#:[id number] Oral 1200 / 1200 Output: Urine 300 / 300 Other: # Voids 3 3 Date of Last Bowel Movement 08/09/18 08/10/18 Narrative: GENERAL: middle aged man, obese, not in distress, sitting in chair. HEENT:not pale,anicteric,nasal canula in situ CARDIOVASCULAR: Regular rate and rhythm,s1s2 normal, no murmurs. RESPIRATORY: equal air entry bilaterally, scattered creps basally, no wheezes. GASTROINTESTINAL: Abdomen soft, non-tender, nondistended. Normoactive bowel sounds MUSCULOSKELETAL: Extremities without clubbing, cyanosis.1+ edema bilaterally. ight ankle, swollen, mild erythema,mildly tender. Lt forearm and distal arm swelling improving. NEUROLOGICAL: Awake and alert to person place time situation. Results Labs CBC & Chem 7: 08/09/18 05:31 08/11/18 07:30 Assessment and Plan (1) Nonsustained ventricular tachycardia: Code(s): I47.2 - Ventricular tachycardia Status: Acute (2) Hypertension: Code(s): I10 - Essential (primary) hypertension Status: Chronic (3) CKD (chronic kidney disease): Code(s): N18.9 - Chronic kidney disease, unspecified Status: Chronic (4) H/O heart artery stent: Code(s): Z95.5 - Presence of coronary angioplasty implant and graft Status: Acute (5) GI bleed: Code(s): K92.2 - Gastrointestinal hemorrhage, unspecified Status: Acute (6) Anemia: Code(s): D64.9 - Anemia, unspecified Status: Acute (7) Illicit drug use: Code(s): F19.90 - Other psychoactive substance use, unspecified, uncomplicated Status: Acute (8) Cocaine abuse: Code(s): F14.10 - Cocaine abuse, uncomplicated Status: Chronic (9) Noncompliance with medication regimen: Code(s): Z91.14 - Patient's other noncompliance with medication regimen Status: Acute Plan 63-year-old male with a history of hypertension, chronic kidney disease stage III, diastolic congestive heart failure presents with one week history of generalized weakness and shortness of breath with black tarry stools found to have Acute on chronic anemia due to active blood loss from GI bleed-transfused 2 units of packed red blood cells 08/03. Hgb has remained stable and GI team signed off. Acute on Chronic HFpEF- volume overload likely in the setting of recent blood products including FFP and prbc. Echocardiogram in June 2018 showed ejection fraction of 50-55% with LVH. Continue to monitor strict I/O,daily wts, low salt diet. 08/06 CXR noted with vague left upper lobe opacity, repeat is unchanged. Oxygen tapered down to room air. breathing improved. GI bleedrequired Vit k and FFP,prbc on admission. EGD showed chronic gastritis , no acute source of bleeding. PPI for 6-8 wks recommended. Stop aspirin.given that patient was only found with gastritis the benefits of A/ C outweigh risks of holding currently. Continue Coumadin, pharmacy to dose. Acute kidney injury superimposed on chronic kidney disease stage [id number] aspect likely prerenal due to GI bleed and diuresis, also possibility of cardiorenal syndrome. avoid nephrotoxins,dose meds to gfr. renal US with no evidence of hydronephrosis. serology and SPEP pending. Creatinine trending up, 4.3--essentially unchanged. nephrology consult appreciated. Acute gout flare-given worsening renal function, hold Colchicine, start on Prednisone 20mg daily for 3 days--pain resolved. DVT ruled out with negative US. History of paroxysmal atrial fibrillationcontinue with atenolol. Coumadin restarted, INR 1.6 today, continue to monitor. HypertensionBP low normal range, continue atenolol and Norvasc. Hydralazine was decreased to 25 mg 3 times a day. Venous stasis dermatitisLac-Hydrin lotion to area. DVT prophylaxisSCDs Progress Note: Quality VTE Deep Vein Thrombosis/Pulmonary Embolism Present on Admission: No _ (1) GI bleed Qualifiers: GI bleed type/associated pathology: unspecified gastrointestinal hemorrhage type Gastritis type: Qualified Code(s): K92.2 - Gastrointestinal hemorrhage, unspecified (2) Anemia Qualifiers: Anemia type: other cause Bone marrow failure anemia type: Chronic kidney disease stage: Folate deficiency anemia type: Hemolytic anemia type: Iron deficiency anemia type: Other causes of anemia: acute posthemorrhagic Vitamin B12 deficiency anemia type: Qualified Code(s): D62 - Acute posthemorrhagic anemia (3) CKD (chronic kidney disease) Qualifiers: Chronic kidney disease stage: unspecified stage Qualified Code(s): N18.9 - Chronic kidney disease, unspecified (4) Hypertension Qualifiers: Hypertension type: unspecified Qualified Code(s): I10 - Essential (primary) hypertension
--- NOTE | 2018-08-11 22:00 | P.PNNP ---
Subjective Interval history: Patient seen in the afternoon, alert, not in distress. Physical Exam Vital signs: Vital Signs 08/11/18 00:00 08/11/18 03:56 08/11/18 04:40 Temperature 97.7 F 96.9 F L Pulse Rate 61 64 60 Respiratory Rate 18 18 Blood Pressure 122/60 123/67 Pulse Oximetry 93 L 93 L 08/11/18 08:00 08/11/18 09:19 08/11/18 12:00 Temperature 97.7 F 98.1 F Pulse Rate 72 61 61 Respiratory Rate 19 19 Blood Pressure 148/69 H 135/79 Pulse Oximetry 93 L 95 08/11/18 16:00 08/11/18 20:00 Temperature 98.1 F 97.4 F L Pulse Rate 58 L 60 Respiratory Rate 18 20 Blood Pressure 138/81 124/69 Pulse Oximetry 95 94 L Intake & Output 08/11/18 08/11/18 08/12/18 06:59 18:59 06:59 Intake Total 110 / 110 Balance 110 / 110 Weight 91.5 kg Intake: IV 110 / 110 Venofer Inj 200 MG In NS Inj 110 / 110 100 ML @ 110 mls/hr IV.SIG DAILY [facility] Rx#:[id number] Other: # Voids 3 Date of Last Bowel Movement 08/10/18 08/11/18 Narrative: GENERAL: Alert and oriented. SKIN: Warm and dry. NECK: Supple, trachea midline. No JVD CARDIOVASCULAR: Regular rate and rhythm without murmurs, gallops, or rubs. RESPIRATORY: Breath sounds equal bilaterally. No accessory muscle use. GASTROINTESTINAL: Abdomen soft, non-tender, nondistended. MUSCULOSKELETAL: No cyanosis, left arm edematous BACK: Nontender without obvious deformity. No CVA tenderness. Assessment and Plan - Assessment (1) Acute kidney injury superimposed on chronic kidney disease Code(s): N17.9 - Acute kidney failure, unspecified; N18.9 - Chronic kidney disease, unspecified Status: Acute Plan: Patient with chronic kidney disease and has ISABELLA. Creatinine still elevated, now it is 4.3, will hold Lasix. Follow the urine out put and BMP. Avoid Nephrotoxins. (2) A-fib Code(s): I48.91 - Unspecified atrial fibrillation Status: Acute Plan: On warfarin. Sub therapeutic. (3) Anemia Code(s): D64.9 - Anemia, unspecified Status: Acute Qualifiers: Anemia type: other cause Other causes of anemia: acute posthemorrhagic Qualified Code(s): D62 - Acute posthemorrhagic anemia Plan: HGB at 9.7, Iron sat at 5.3, will order venofer. (4) Hypertension Code(s): I10 - Essential (primary) hypertension Status: Chronic Qualifiers: Hypertension type: unspecified Qualified Code(s): I10 - Essential (primary ) hypertension Plan: Hypotension has improved, blood pressure medication adjusted yesterday.
[2018-08-12] MEDS: Gabapentin 100 MG Capsule PO SCH ×2 (08:57→20:01)
[2018-08-12] MEDS: predniSONE 20 MG Tablet PO SCH (08:57)
[2018-08-12] MEDS: amLODIPine 10 MG Tablet PO SCH (08:57)
[2018-08-12] MEDS: Atenolol 50 MG Tablet PO SCH (08:57)
[2018-08-12] MEDS: Iron Sucrose Complex Inj 200 MG in Sodium Chlor 0.9% Inj 100 ML IV.SIG SCH (08:57)
[2018-08-12] MEDS: hydrALAZINE 25 MG Tablet PO SCH ×3 (08:57→18:26)
[2018-08-12] MEDS: Lactic Acid (Ammonium Lactate) 12% Lotion 225 GM Bottle TOPICAL SCH ×2 (08:58→20:04)
[2018-08-12 09:28] LABS: Baso % (Auto) 0.3 % (0.0-2.0); Eos % (Auto) 0.7 % (0.0-4.0); Hematocrit 28.9 % (39.0-51.0); Hemoglobin 9.4 gm/dL (13.0-17.0); Lymph # (Auto) 1.5 th/mm3 (1.0-4.8); Lymph % (Auto) 26.4 % (9.0-44.0); Mean Corpuscular HGB Conc 32.5 % (32.0-36.0); Mean Corpuscular Hemoglobin 27.3 pg (27.0-34.0); Mean Corpuscular Volume 84.1 fL (80.0-100.0); Mean Platelet Volume 7.7 fL (7.0-11.0); Mono # (Auto) 0.5 th/mm3 (0.0-0.9); Mono % (Auto) 8.5 % (0.0-8.0); Neut # (Auto) 3.7 th/mm3 (1.8-7.7); Neut % (Auto) 64.1 % (16.0-70.0); Platelet Count 232 th/mm3 (150-450); Red Blood Count 3.44 mil/mm3 (4.50-5.90); Red Cell Distribution Width 18.6 % (11.6-17.2); White Blood Count 5.7 th/mm3 (4.0-11.0)
[2018-08-12 09:31] LABS: Prothrombin Time 30.3 sec (9.8-11.6)
[2018-08-12 10:02] LABS: Carbon Dioxide 26.1 meq/L (21.0-32.0); Potassium 4.7 meq/L (3.5-5.1)
--- NOTE | 2018-08-12 11:20 | P.PNIM ---
Subjective Interval history: patient reports he is feeling well. no shortness of breath. ankle pain has subsided. Physical Exam Vital signs: Vital Signs 08/11/18 12:00 08/11/18 16:00 08/11/18 20:00 Temperature 98.1 F 98.1 F 97.4 F L Pulse Rate 61 58 L 60 Respiratory Rate 19 18 20 Blood Pressure 135/79 138/81 124/69 Pulse Oximetry 95 95 94 L 08/12/18 00:00 08/12/18 00:31 08/12/18 04:00 Temperature 97.3 F L 97.4 F L Pulse Rate 65 59 L 58 L Respiratory Rate 20 20 Blood Pressure 119/70 140/74 Pulse Oximetry 94 L 94 L Intake & Output 08/11/18 08/12/18 08/12/18 18:59 06:59 18:59 Intake Total 110 / 110 240 / 240 Balance 110 / 110 240 / 240 Weight 92.1 kg Intake: IV 110 / 110 Venofer Inj 200 MG In NS Inj 110 / 110 100 ML @ 110 mls/hr IV.SIG DAILY [facility] Rx#:[id number] Oral 240 / 240 Other: # Voids 2 Date of Last Bowel Movement 08/11/18 # Bowel Movements 1 Narrative: GENERAL: middle aged man, obese, not in distress, laying in bed. HEENT:not pale,anicteric,nasal canula in situ CARDIOVASCULAR: Regular rate and rhythm,s1s2 normal, no murmurs. RESPIRATORY: equal air entry bilaterally, no creps, no wheezes. GASTROINTESTINAL: Abdomen soft, non-tender, nondistended. Normoactive bowel sounds MUSCULOSKELETAL: Extremities without clubbing, cyanosis.1+ edema bilaterally. ight ankle, swollen, mild erythema,mildly tender. Lt forearm and distal arm swelling improving. NEUROLOGICAL: Awake and alert to person place time situation. Results Labs CBC & Chem 7: 08/12/18 06:41 08/12/18 06:41 Assessment and Plan (1) Nonsustained ventricular tachycardia: Code(s): I47.2 - Ventricular tachycardia Status: Acute (2) Hypertension: Code(s): I10 - Essential (primary) hypertension Status: Chronic (3) CKD (chronic kidney disease): Code(s): N18.9 - Chronic kidney disease, unspecified Status: Chronic (4) H/O heart artery stent: Code(s): Z95.5 - Presence of coronary angioplasty implant and graft Status: Acute (5) GI bleed: Code(s): K92.2 - Gastrointestinal hemorrhage, unspecified Status: Acute (6) Anemia: Code(s): D64.9 - Anemia, unspecified Status: Acute (7) Illicit drug use: Code(s): F19.90 - Other psychoactive substance use, unspecified, uncomplicated Status: Acute (8) Cocaine abuse: Code(s): F14.10 - Cocaine abuse, uncomplicated Status: Chronic (9) Noncompliance with medication regimen: Code(s): Z91.14 - Patient's other noncompliance with medication regimen Status: Acute Plan 63-year-old male with a history of hypertension, chronic kidney disease stage III, diastolic congestive heart failure presents with one week history of generalized weakness and shortness of breath with black tarry stools found to have Acute on chronic anemia due to active blood loss from GI bleed-transfused 2 units of packed red blood cells 08/03. Hgb has remained stable in the 9's range and GI team signed off. Acute on Chronic HFpEF- volume overload likely in the setting of recent blood products including FFP and prbc. Echocardiogram in June 2018 showed ejection fraction of 50-55% with LVH. Continue to monitor strict I/O,daily wts, low salt diet. 08/06 CXR noted with vague left upper lobe opacity, repeat is unchanged. Oxygen tapered down to room air. breathing improved. GI bleedrequired Vit k and FFP,prbc on admission. EGD showed chronic gastritis , no acute source of bleeding. PPI for 6-8 wks recommended. Stop aspirin.given that patient was only found with gastritis the benefits of A/ C outweigh risks of holding currently. Acute kidney injury superimposed on chronic kidney disease stage [id number] aspect likely prerenal due to GI bleed and diuresis, also possibility of cardiorenal syndrome. avoid nephrotoxins,dose meds to gfr. renal US with no evidence of hydronephrosis. serology and SPEP pending. Creatinine 4.1,has ranged between 4.1-4.3 in the last 3 days--essentially unchanged. Lasix was held yesterday. monitor nephrology following. Acute gout flare-given worsening renal function, hold Colchicine, start on Prednisone 20mg daily for 3 days(end 08/12)--pain resolved. Can start on low dose Allopurinol 100mg daily. DVT ruled out with negative US. History of paroxysmal atrial fibrillationcontinue with atenolol. Coumadin restarted,INR now therapeutic 3. Coumadin on hold. HypertensionBP low normal range, continue atenolol and Norvasc. Hydralazine was decreased to 25 mg 3 times a day. Venous stasis dermatitisLac-Hydrin lotion to area. DVT prophylaxisSCDs Progress Note: Quality VTE Deep Vein Thrombosis/Pulmonary Embolism Present on Admission: No _ (1) Hypertension Qualifiers: Hypertension type: unspecified Qualified Code(s): I10 - Essential (primary) hypertension (2) CKD (chronic kidney disease) Qualifiers: Chronic kidney disease stage: unspecified stage Qualified Code(s): N18.9 - Chronic kidney disease, unspecified (3) GI bleed Qualifiers: GI bleed type/associated pathology: unspecified gastrointestinal hemorrhage type Gastritis type: Qualified Code(s): K92.2 - Gastrointestinal hemorrhage, unspecified (4) Anemia Qualifiers: Anemia type: other cause Bone marrow failure anemia type: Chronic kidney disease stage: Folate deficiency anemia type: Hemolytic anemia type: Iron deficiency anemia type: Other causes of anemia: acute posthemorrhagic Vitamin B12 deficiency anemia type: Qualified Code(s): D62 - Acute posthemorrhagic anemia
--- NOTE | 2018-08-12 20:47 | P.PNNP ---
Subjective Interval history: Patient is alert, seen in the afternoon, not in distress, no SOB. Physical Exam Vital signs: Vital Signs 08/12/18 00:00 08/12/18 00:31 08/12/18 04:00 Temperature 97.3 F L 97.4 F L Pulse Rate 65 59 L 58 L Respiratory Rate 20 20 Blood Pressure 119/70 140/74 Pulse Oximetry 94 L 94 L 08/12/18 08:00 08/12/18 09:57 08/12/18 12:00 Temperature 97.6 F 97.6 F Pulse Rate 60 58 L 60 Respiratory Rate 19 18 Blood Pressure 134/63 129/71 Pulse Oximetry 95 93 L 08/12/18 16:00 Temperature 97.7 F Pulse Rate 60 Respiratory Rate 19 Blood Pressure 140/72 Pulse Oximetry 93 L Intake & Output 08/12/18 08/12/18 08/13/18 06:59 18:59 06:59 Intake Total 240 / 240 110 / 110 Balance 240 / 240 110 / 110 Weight 92.1 kg Intake: IV 110 / 110 Venofer Inj 200 MG In NS Inj 110 / 110 100 ML @ 110 mls/hr IV.SIG DAILY [facility] Rx#:[id number] Oral 240 / 240 Other: # Voids 2 Date of Last Bowel Movement 08/11/18 08/12/18 # Bowel Movements 1 Narrative: GENERAL: Alert and oriented. SKIN: Warm and dry. NECK: Supple, trachea midline. No JVD CARDIOVASCULAR: Regular rate and rhythm without murmurs, gallops, or rubs. RESPIRATORY: Breath sounds equal bilaterally. No accessory muscle use. GASTROINTESTINAL: Abdomen soft, non-tender, nondistended. MUSCULOSKELETAL: No cyanosis, left arm edematous BACK: Nontender without obvious deformity. No CVA tenderness. Assessment and Plan - Assessment (1) Acute kidney injury superimposed on chronic kidney disease Code(s): N17.9 - Acute kidney failure, unspecified; N18.9 - Chronic kidney disease, unspecified Status: Acute Plan: Patient with chronic kidney disease and has ISABELLA. Creatinine is almost same 4.1 now, Lasix has been on hold. Follow the urine out put and BMP. Avoid Nephrotoxins. The baseline Creatinine is 3.0-3.3. If Creatinine continue to improve, can be discharged with out patient follow up. (2) A-fib Code(s): I48.91 - Unspecified atrial fibrillation Status: Acute Plan: On warfarin. Sub therapeutic. (3) Anemia Code(s): D64.9 - Anemia, unspecified Status: Acute Qualifiers: Anemia type: other cause Other causes of anemia: acute posthemorrhagic Qualified Code(s): D62 - Acute posthemorrhagic anemia Plan: HGB at 9.7, Iron sat at 5.3, will order venofer. (4) Hypertension Code(s): I10 - Essential (primary) hypertension Status: Chronic Qualifiers: Hypertension type: unspecified Qualified Code(s): I10 - Essential (primary ) hypertension Plan: Hypotension has improved, blood pressure medication adjusted yesterday.
[2018-08-13 07:23] LABS: Baso % (Auto) 0.3 % (0.0-2.0); Eos % (Auto) 0.5 % (0.0-4.0); Hematocrit 29.3 % (39.0-51.0); Hemoglobin 9.4 gm/dL (13.0-17.0); Lymph # (Auto) 1.5 th/mm3 (1.0-4.8); Lymph % (Auto) 24.3 % (9.0-44.0); Mean Corpuscular Hemoglobin 26.8 pg (27.0-34.0); Mean Corpuscular Volume 83.7 fL (80.0-100.0); Mean Platelet Volume 7.3 fL (7.0-11.0); Mono # (Auto) 0.6 th/mm3 (0.0-0.9); Mono % (Auto) 10.1 % (0.0-8.0); Neut # (Auto) 3.9 th/mm3 (1.8-7.7); Neut % (Auto) 64.8 % (16.0-70.0); Platelet Count 232 th/mm3 (150-450); Red Cell Distribution Width 18.8 % (11.6-17.2)
[2018-08-13 07:32] LABS: INR 3.7 Ratio; Prothrombin Time 37.1 sec (9.8-11.6)
[2018-08-13 08:00] VITALS: RESP 19; O2SAT 92
[2018-08-13 08:09] LABS: Calcium 7.6 mg/dL (8.5-10.1); Carbon Dioxide 28.6 meq/L (21.0-32.0)
[2018-08-13] MEDS: Atenolol 50 MG Tablet PO SCH (09:43)
[2018-08-13] MEDS: Gabapentin 100 MG Capsule PO SCH (09:43)
[2018-08-13] MEDS: amLODIPine 10 MG Tablet PO SCH (09:43)
[2018-08-13] MEDS: Lactic Acid (Ammonium Lactate) 12% Lotion 225 GM Bottle TOPICAL SCH (09:43)
[2018-08-13] MEDS: hydrALAZINE 25 MG Tablet PO SCH ×2 (09:43→14:03)
--- NOTE | 2018-08-13 11:38 | P.PNIM ---
Subjective Interval history: patient reports feeling well,not short of breath. no ankle pain. he is passing urine well. Physical Exam Vital signs: Vital Signs 08/12/18 12:00 08/12/18 16:00 08/12/18 20:00 Temperature 97.6 F 97.7 F 98.3 F Pulse Rate 60 60 63 Respiratory Rate 18 19 20 Blood Pressure 129/71 140/72 115/66 Pulse Oximetry 93 L 93 L 96 08/13/18 00:00 08/13/18 04:00 08/13/18 07:59 Temperature 98.0 F 98.1 F 98.1 F Pulse Rate 64 63 61 Respiratory Rate 20 20 19 Blood Pressure 119/61 128/70 127/72 Pulse Oximetry 95 96 92 L Intake & Output 08/12/18 08/13/18 08/13/18 18:59 06:59 18:59 Intake Total 110 / 110 Balance 110 / 110 Weight 94.1 kg Intake: IV 110 / 110 Venofer Inj 200 MG In NS Inj 110 / 110 100 ML @ 110 mls/hr IV.SIG DAILY [facility] Rx#:[id number] Other: # Voids 3 Date of Last Bowel Movement 08/12/18 # Bowel Movements 1 Narrative: GENERAL: middle aged man, obese, not in distress, laying in bed. HEENT:not pale,anicteric,nasal canula in situ CARDIOVASCULAR: Regular rate and rhythm,s1s2 normal, no murmurs. RESPIRATORY: equal air entry bilaterally, no creps, no wheezes. GASTROINTESTINAL: Abdomen soft, non-tender, nondistended. Normoactive bowel sounds MUSCULOSKELETAL: Extremities without clubbing, cyanosis.1+ edema bilaterally. ankles non tender today, no wrist tenderness. NEUROLOGICAL: Awake and alert to person place time situation. Results Labs CBC & Chem 7: 08/13/18 06:41 08/13/18 06:11 Assessment and Plan (1) Nonsustained ventricular tachycardia: Code(s): I47.2 - Ventricular tachycardia Status: Acute (2) Hypertension: Code(s): I10 - Essential (primary) hypertension Status: Chronic (3) CKD (chronic kidney disease): Code(s): N18.9 - Chronic kidney disease, unspecified Status: Chronic (4) H/O heart artery stent: Code(s): Z95.5 - Presence of coronary angioplasty implant and graft Status: Acute (5) GI bleed: Code(s): K92.2 - Gastrointestinal hemorrhage, unspecified Status: Acute (6) Anemia: Code(s): D64.9 - Anemia, unspecified Status: Acute (7) Illicit drug use: Code(s): F19.90 - Other psychoactive substance use, unspecified, uncomplicated Status: Acute (8) Cocaine abuse: Code(s): F14.10 - Cocaine abuse, uncomplicated Status: Chronic (9) Noncompliance with medication regimen: Code(s): Z91.14 - Patient's other noncompliance with medication regimen Status: Acute Plan 63-year-old male with a history of hypertension, chronic kidney disease stage III, diastolic congestive heart failure presents with one week history of generalized weakness and shortness of breath with black tarry stools, he was admitted for management of GI bleeding. Hospital course was complicated by volume overload with acute decompensated heart failure for which he was diuresed and unfortunately developed acute kidney injury on CKD. He also developed acute exacerbation of gouty arthritis. Acute on chronic anemia due to active blood loss from GI bleed-transfused 2 units of packed red blood cells 08/03. Hgb has remained stable in the 9's range and GI team signed off. Acute on Chronic HFpEF- volume overload likely in the setting of recent blood products including FFP and prbc. Echocardiogram in June 2018 showed ejection fraction of 50-55% with LVH. Continue to monitor strict I/O,daily wts, low salt diet. 08/06 CXR noted with vague left upper lobe opacity, repeat is unchanged. Oxygen tapered down to room air. breathing improved. GI bleedrequired Vit k and FFP,prbc on admission. EGD showed chronic gastritis , no acute source of bleeding. PPI for 6-8 wks recommended. Stop aspirin.given that patient was only found with gastritis the benefits of A/ C outweigh risks of holding currently. Acute kidney injury superimposed on chronic kidney disease stage [id number] aspect likely prerenal due to GI bleed and diuresis, also possibility of cardiorenal syndrome. avoid nephrotoxins,dose meds to gfr. renal US with no evidence of hydronephrosis. serology and SPEP pending. Creatinine 4.1,has ranged between 4.1-4.3 in the last 3 days--essentially unchanged. Lasix was held yesterday. 08/13--creatinine 3.9 today,can be discharged to follow up with outpatient nephrology. Acute gout flare-given worsening renal function, hold Colchicine, start on Prednisone 20mg daily for 3 days(end 08/12)--pain resolved. Can start on low dose Allopurinol 100mg daily. DVT ruled out with negative US. History of paroxysmal atrial fibrillationcontinue with atenolol. Coumadin restarted,INR supratherapeutic 3.7. Coumadin on hold. will need INR rechecked in 2 days, if <3 then Coumadin can be resumed at a lower dose. HypertensionBP low normal range, continue atenolol and Norvasc. Hydralazine was decreased to 25 mg 3 times a day. Venous stasis dermatitisLac-Hydrin lotion to area. DVT prophylaxisSCDs Progress Note: Quality VTE Deep Vein Thrombosis/Pulmonary Embolism Present on Admission: No _ (1) GI bleed Qualifiers: GI bleed type/associated pathology: unspecified gastrointestinal hemorrhage type Gastritis type: Qualified Code(s): K92.2 - Gastrointestinal hemorrhage, unspecified (2) Anemia Qualifiers: Anemia type: other cause Bone marrow failure anemia type: Chronic kidney disease stage: Folate deficiency anemia type: Hemolytic anemia type: Iron deficiency anemia type: Other causes of anemia: acute posthemorrhagic Vitamin B12 deficiency anemia type: Qualified Code(s): D62 - Acute posthemorrhagic anemia (3) CKD (chronic kidney disease) Qualifiers: Chronic kidney disease stage: unspecified stage Qualified Code(s): N18.9 - Chronic kidney disease, unspecified (4) Hypertension Qualifiers: Hypertension type: unspecified Qualified Code(s): I10 - Essential (primary) hypertension
--- NOTE | 2018-08-13 11:48 | P.DS ---
DS: Providers Date of admission: 08/03/18 15:22 Primary care physician: UNKNOWN Consults: 08/03/18 15:04 Consult to Gastroenterology Routine Consulting Provider: Hernan Pop Reason for Consultation: GI bleed Notified:: Office Spoke with:: kenji Date Notified:: 08/03/18 Time Notified:: 15:21 Ordering Provider: JEFFERY 08/08/18 10:25 Consult to Nephrology Routine Consulting Provider: Gia Khan Does the patient have a Drop Worker who follows them?: No Preferred Nephrology Tool Grinder:: Reducing Salon Attendant Physician Reason for Consultation: ARF on CKD Notified:: Office Spoke with:: Esthela Date Notified:: 08/08/18 Time Notified:: 10:57 Comments:: waiting commercial collections driver back -- [id number] Ordering Provider: DAKSHA 08/08/18 10:29 Consult to Cardiology Routine Consulting Provider: Alisa Cunha Does the patient have a Botanical Technical Officer who follows them?: No Preferred [place]:: Reducing Salon Attendant Physician Reason for Consultation: Non-sustained Vtach Notified:: Office Spoke with:: Verito Date Notified:: 08/08/18 Time Notified:: 10:36 Ordering Provider: DAKSHA 08/10/18 12:56 HUB Only Consult Order Routine Consulting Provider: [facility] Brief History from admission: 63-year-old male with history of hypertension, chronic kidney disease stage III, diastolic congestive heart failure, paroxysmal atrial fibrillation on warfarin presents with one week history of worsening generalized weakness and shortness of breath worse with physical exertion. He also noted black tarry stools today not associated with abdominal pain and came in for evaluation. He denies any loose stools. He reports having endoscopy colonoscopy over 10 years ago and does not really remember any significant results from it. He reports taking aspirin and warfarin but denies any [id number] NSAIDs. He reports no significant chest pain but reports occasional palpitations. He reports no associated chills or fever nor cough. He currently moved down from [place] and currently follows up with [facility] DS: Diagnosis Discharge Diagnosis (1) Nonsustained ventricular tachycardia: Status: Acute (2) Hypertension: Status: Chronic (3) CKD (chronic kidney disease): Status: Chronic (4) H/O heart artery stent: Status: Acute (5) GI bleed: Status: Acute (6) Anemia: Status: Acute (7) Illicit drug use: Status: Acute (8) Cocaine abuse: Status: Chronic (9) Noncompliance with medication regimen: Status: Acute DS: Summary 63-year-old male with a history of hypertension, chronic kidney disease stage III, diastolic congestive heart failure presents with one week history of generalized weakness and shortness of breath with black tarry stools, he was admitted for management of GI bleeding. Hospital course was complicated by volume overload with acute decompensated heart failure for which he was diuresed and unfortunately developed acute kidney injury on CKD. He also developed acute exacerbation of gouty arthritis. HOSPITAL COURSE BY ACTIVE PROBLEMS: 1. GI bleedrequired Vit k and FFP,prbc on admission.GI team consulted.EGD showed chronic gastritis, no acute source of bleeding. PPI for 6-8 wks recommended,he was discharged on Protonix 40mg bid. 2.Acute on chronic anemia due to active blood loss from GI bleed-transfused 2 units of packed red blood cells 08/03. Hgb has remained stable in the 9's range and GI team signed off. 3. Acute on Chronic HFpEF- volume overload likely in the setting of recent blood products including FFP and prbc. Echocardiogram in June 2018 showed ejection fraction of 50-55% with LVH. Continue to monitor strict I/O,daily wts, low salt diet. 08/06 CXR noted with vague left upper lobe opacity, repeat is unchanged. Patient was initially on IV diuresis and required BIPAP as well. He clinically improved and was transitioned to Oxygen by nasal canula which was tapered down to room air. His breathing was back to baseline. Patient developed ISABELLA following diuresis, see below. 4.Acute kidney injury superimposed on chronic kidney disease stage HFD-GM-lhwht aspect likely prerenal due to GI bleed and diuresis, also possibility of cardiorenal syndrome. Nephrology consulted. Renal US with no evidence of hydronephrosis. serology and SPEP pending. Creatinine peaked at 4.3 Lasix was placed on hold, Cr had trended down to 3.9 on discharge. 5.Acute gout flare-given worsening renal function, hold Colchicine, start on Prednisone 20mg daily for 3 days(end 08/12)--pain resolved. DVT ruled out with negative US. History of paroxysmal atrial fibrillationcontinue with atenolol. Coumadin was initially on hold due to GI bleed. It was restarted and INR increased to 3.7 by the time of discharge, hence Coumadin on hold again, INR should be repeated in 2 days. HypertensionBP low normal range, continue atenolol and Norvasc. Hydralazine was decreased to 25 mg 3 times a day. Venous stasis dermatitisLac-Hydrin lotion to area. PATIENT FOLLOWS UP AT [facility]. HE HAS BEEN INSTRUCTED TO FOLLOW UP WITH HIS PCP IN THE NEXT 2-3 DAYS FOR RE-EVALUATION,REPEAT INR AND BMP. HIS PCP WILL NEED TO GIVE HIM A REFERRAL TO NEPHROLOGY. Time Spent with Patient Total time spent providing and/or coordinating discharge services:>30 MIN Quality: VTE Deep Vein Thrombosis/Pulmonary Embolism Present on Admission: No Results Completed studies during hospitalization: Pending at discharge 08/05/18 07:27 Surgical [PTH] Routine Labs on day of discharge: Labs from last 24 hours 08/13/18 08/13/18 08/13/18 06:41 06:41 06:11 WBC 6.0 RBC 3.50 L Hgb 9.4 L Hct 29.3 L MCV 83.7 MCH 26.8 L MCHC 32.0 RDW 18.8 H Plt Count 232 MPV 7.3 Neut % (Auto) 64.8 Lymph % (Auto) 24.3 [place] % (Auto) 10.1 H Eos % (Auto) 0.5 Baso % (Auto) 0.3 Neut # (Auto) 3.9 Lymph # (Auto) 1.5 [place] # (Auto) 0.6 Eos # (Auto) 0.0 Baso # (Auto) 0.0 WBC Differential . Differential Comment Auto diff final PT 37.1 H INR 3.7 Sodium 144 Potassium 5.0 Chloride 111 H Carbon Dioxide 28.6 Anion Gap 4 L BUN 75 H Creatinine 3.93 H Estimated GFR 19 L Random Glucose 101 Calcium 7.6 L Impressions ITS Impressions Chest X-Ray 08/07/18 00:00 CONCLUSION: No appreciable change. Venous Doppler Study 08/08/18 00:00 CONCLUSION: 1. Negative exam with no evidence of deep venous thrombosis. Abdomen/Bladder Ultrasound 08/09/18 00:00 CONCLUSION: 1. No evidence of mass or hydronephrosis. 2. There are hypodensities along the free edge of the liver and about the cortical margins of both kidneys suggests the possibility of free fluid or subcapsular fluid. Discharge Plan Discharge Disposition Patient Disposition: 01 Discharge Home Discharge Condition Condition: Stable Discharge Order Discharge Orders: Discharge Order (Routine); Ordered 08/13/18 Ordered By: Sara Linares Discharge Details Anticipated Discharge Date: 08/13/18 Physicians Team Primary Care Provider: UNKNOWN, Attending Provider: Sara Linares Other Providers: Hernan Pop ; Alisa Cunha ; Gia Khan ; [facility] Rxs /Orders / Referrals /Forms Prescriptions: New pantoprazole 40 mg Tablet,Delayed Release (Dr/Ec) 40 mg PO BID 30 Days Qty: 60 RF: 2 Continue benzocaine-menthol 15-2.6 mg Lozenge 1 misty MUCOUS MEMBRANE Q2-4H PRN (Reason: Cough) RF: 0 atorvastatin 40 mg Tablet 40 mg PO DAILY Qty: 30 RF: 0 aspirin [Aspir-Low] 81 mg Tablet,Delayed Release (Dr/Ec) 81 mg PO DAILY Qty: 30 RF: 0 tamsulosin 0.4 mg Capsule 0.4 mg PO DAILY Qty: 30 RF: 0 amlodipine 10 mg Tablet 10 mg PO DAILY Qty: 30 RF: 0 gabapentin 100 mg Capsule 100 mg PO BID Qty: 60 RF: 0 atenolol 50 mg Tablet 50 mg PO DAILY Qty: 30 RF: 0 loratadine 10 mg Capsule 10 mg PO DAILY Qty: 30 RF: 0 colchicine [Colcrys] 0.6 mg Tablet 0.6 mg PO BID PRN (Reason: gout pain) Qty: 6 RF: 0 Discontinued furosemide 40 mg Tablet 40 mg PO DAILY Qty: 30 RF: 0 warfarin 5 mg Tablet 5 mg PO DAILY Qty: 30 RF: 0 Referrals: [facility] [Outside] - See Instructions UNKNOWN, [Primary Care Provider] - See Instructions (needs follow up with Nephrology ) Discharge Instructions Additional Instructions: You presented to the hospital because of black stools and was found to be anemia. You required packed red blood cell transfusion and your anemia stabilized. Your hemoglobin at the time of discharge was 9.4g/dl. You underwent upper endoscopy and was found to have Gastritis for which you have been started on a medication called Protonix,please take as prescribed. Avoid taking non steroidal antiinflammatory medication like Aleve, Motrin or other medication in this family. You were also found to have acute congestive heart failure,for which you were treated with Lasix, your symptoms improved, unfortunately you suffered an acute kidney injury and your Creatinine was elevated to a peak of 4.3,now it is down to 3.9. Lasix has been temporarily stopped, your kidney doctor will need to repeat Creatinine level when you follow up. Your Coumadin had been on hold on admission,and it was restarted during hospitalization.Your INR was 3.7 on discharge and your Coumadin has been stopped temporarily. You should have an INR repeated in 2 days. Your doctor can resume Coumadin at a lower dose once your INR level drops to between 2 and 3. Please follow up with your primary care doctor in the next 2 days. Your doctor should give you a referral to follow up with a kidney doctor within 1 week. Status ED Status: Left Department
[2018-08-13 11:49] VITALS: BP 162/91; PULSE 66; TEMP 97.5
[2018-08-13 13:36] LABS: Anti-Nuclear Antibody Pattern Speckled
--- NOTE | 2018-08-13 13:38 | P.DCO ---
Diagnosis (1) CKD (chronic kidney disease): Status: Chronic (2) GI bleed: Status: Acute (3) Anemia: Status: Acute (4) Supratherapeutic INR: Status: Acute (5) Acute kidney injury superimposed on chronic kidney disease: Status: Acute Home Health Nursing Order: Medical education and CHF education Instructions: needs INR check on 08/15/18 Case Management Consult Case Management Consult-Home Health: Yes I have seen patient Edmond Perez on 08/13/18. My clinical findings support the need for the requested home health care services because: I certify that my clinical findings support that this patient is homebound because: _ (1) CKD (chronic kidney disease) Qualifiers: Chronic kidney disease stage: unspecified stage Qualified Code(s): N18.9 - Chronic kidney disease, unspecified (2) GI bleed Qualifiers: GI bleed type/associated pathology: unspecified gastrointestinal hemorrhage type Gastritis type: Qualified Code(s): K92.2 - Gastrointestinal hemorrhage, unspecified (3) Anemia Qualifiers: Anemia type: other cause Bone marrow failure anemia type: Chronic kidney disease stage: Folate deficiency anemia type: Hemolytic anemia type: Iron deficiency anemia type: Other causes of anemia: acute posthemorrhagic Vitamin B12 deficiency anemia type: Qualified Code(s): D62 - Acute posthemorrhagic anemia
--- NOTE | 2018-08-13 15:02 | P.PNNP ---
Subjective Interval history: Seen in AM, resting comfortably with no complaints. Creatinine improving at 3.9 today. <Camrny Meng - Last Filed: 08/13/18 14:59> Physical Exam Vital signs: Vital Signs 08/12/18 16:00 08/12/18 20:00 08/13/18 00:00 Temperature 97.7 F 98.3 F 98.0 F Pulse Rate 60 63 64 Respiratory Rate 19 20 20 Blood Pressure 140/72 115/66 119/61 Pulse Oximetry 93 L 96 95 08/13/18 04:00 08/13/18 07:59 08/13/18 11:49 Temperature 98.1 F 98.1 F 97.5 F L Pulse Rate 63 61 66 Respiratory Rate 20 19 19 Blood Pressure 128/70 127/72 162/91 H Pulse Oximetry 96 92 L 92 L Intake & Output 08/12/18 08/13/18 08/13/18 18:59 06:59 18:59 Intake Total 110 / 110 Balance 110 / 110 Weight 94.1 kg Intake: IV 110 / 110 Venofer Inj 200 MG In NS Inj 110 / 110 100 ML @ 110 mls/hr IV.SIG DAILY [facility] Rx#:[id number] Other: # Voids 3 Date of Last Bowel Movement 08/12/18 # Bowel Movements 1 Narrative: GENERAL: Alert and oriented. SKIN: Warm and dry. NECK: Supple, trachea midline. No JVD CARDIOVASCULAR: Regular rate and rhythm without murmurs, gallops, or rubs. RESPIRATORY: Breath sounds equal bilaterally. No accessory muscle use. GASTROINTESTINAL: Abdomen soft, non-tender, nondistended. MUSCULOSKELETAL: No cyanosis, left arm edematous BACK: Nontender without obvious deformity. No CVA tenderness. <Camryn Meng - Last Filed: 08/13/18 14:59> Vital signs: Vital Signs 08/12/18 20:00 08/13/18 00:00 08/13/18 04:00 Temperature 98.3 F 98.0 F 98.1 F Pulse Rate 63 64 63 Respiratory Rate 20 20 20 Blood Pressure 115/66 119/61 128/70 Pulse Oximetry 96 95 96 08/13/18 07:59 08/13/18 08:00 08/13/18 11:49 Temperature 98.1 F 97.5 F L Pulse Rate 61 66 66 Respiratory Rate 19 19 Blood Pressure 127/72 162/91 H Pulse Oximetry 92 L 92 L Intake & Output 08/12/18 08/13/18 08/13/18 18:59 06:59 18:59 Intake Total 110 / 110 Balance 110 / 110 Weight 94.1 kg Intake: IV 110 / 110 Venofer Inj 200 MG In NS Inj 110 / 110 100 ML @ 110 mls/hr IV.SIG DAILY [facility] Rx#:[id number] Other: # Voids 3 Date of Last Bowel Movement 08/12/18 # Bowel Movements 1 <Gia Khan - Last Filed: 08/13/18 18:47> Assessment and Plan - Assessment (1) Acute kidney injury superimposed on chronic kidney disease Code(s): N17.9 - Acute kidney failure, unspecified; N18.9 - Chronic kidney disease, unspecified Status: Acute Plan: Patient with chronic kidney disease and has ISABELLA. Creatinine has improved at 3.9 today from 4.1 The baseline Creatinine is 3.0-3.3. From a nephrology stand point patient is cleared for discharge will need outpatient follow up with Nephrology. (2) A-fib Code(s): I48.91 - Unspecified atrial fibrillation Status: Acute Plan: On warfarin. (3) Anemia Code(s): D64.9 - Anemia, unspecified Status: Acute Qualifiers: Anemia type: other cause Other causes of anemia: acute posthemorrhagic Qualified Code(s): D62 - Acute posthemorrhagic anemia Plan: HGB stable. (4) Hypertension Code(s): I10 - Essential (primary) hypertension Status: Chronic Qualifiers: Hypertension type: unspecified Qualified Code(s): I10 - Essential (primary ) hypertension <Camryn Meng - Last Filed: 08/13/18 14:59> - Assessment (1) Acute kidney injury superimposed on chronic kidney disease Code(s): N17.9 - Acute kidney failure, unspecified; N18.9 - Chronic kidney disease, unspecified Status: Acute Plan: Patient seen and examined, agree with above. Creatinine improve to 3.9, Off diuretics. Told to restrict salt and fluid intake. For discharge, to follow as out patient. (2) A-fib Code(s): I48.91 - Unspecified atrial fibrillation Status: Acute (3) Anemia Code(s): D64.9 - Anemia, unspecified Status: Acute Qualifiers: Anemia type: other cause Other causes of anemia: acute posthemorrhagic Qualified Code(s): D62 - Acute posthemorrhagic anemia (4) Hypertension Code(s): I10 - Essential (primary) hypertension Status: Chronic Qualifiers: Hypertension type: unspecified Qualified Code(s): I10 - Essential (primary ) hypertension <Gia Khan - Last Filed: 08/13/18 18:47>
--- NOTE | 2018-08-13 15:33 | P.PNCA ---
Subjective Interval history: Patient sitting up in a chair at this time. He denies any CP, pressure, palpitations, dizziness, edema or SOB. He states that he feels good and wants to go home. Medications and Allergies Allergies Allergy/AdvReac Type Severity Reaction Status Date / Time morphine AdvReac Intermediate Confusion Verified 07/24/17 00:01 Home Medications Medication Instructions Recorded Confirmed Type benzocaine-menthol 1 misty MUCOUS MEMBRANE Q2-4H PRN 06/12/18 08/03/18 History Active Medications: Active Medications Acetaminophen (Tylenol) 650 mg PO Q4H PRN PRN Reason: Temp > 100.4/pain Al Hydroxide/Mg Hydroxide (Milk Of Magnesia Liq) 30 ml PO Q12H PRN PRN Reason: Mild Constipation Last Admin: 08/09/18 09:44 Dose: 30 ml Albuterol (Duoneb Neb (Prn)) 1 ampul NEB Q2HR NEB PRN PRN Reason: SHORTNESS OF BREATH/WHEEZING Last Admin: 08/06/18 13:35 Dose: 1 ampul Amlodipine Besylate (Norvasc) 10 mg PO DAILY [facility] Last Admin: 08/13/18 09:43 Dose: 10 mg Atenolol (Tenormin) 50 mg PO DAILY [facility] Last Admin: 08/13/18 09:43 Dose: 50 mg Atorvastatin Calcium (Lipitor) 40 mg PO DAILY [facility] Last Admin: 08/13/18 09:43 Dose: 40 mg Bisacodyl (Dulcolax Supp) 10 mg RECTAL DAILY PRN PRN Reason: SEVERE CONSITIPATION Colchicine (Colcrys) 0.6 mg PO BID [facility] Last Admin: 08/09/18 09:46 Dose: 0.6 mg Gabapentin (Neurontin) 100 mg PO BID [facility] Last Admin: 08/13/18 09:43 Dose: 100 mg Hydralazine HCl (Apresoline) 25 mg PO TID [facility] Last Admin: 08/13/18 14:03 Dose: 25 mg Lactic Acid (Lac-Hydrin 12% Lotion) 1 applicatio TOPICAL BID [facility] Last Admin: 08/13/18 09:43 Dose: 1 applicatio Lactulose (Lactulose Liq) 30 ml PO DAILY PRN PRN Reason: SEVERE CONSITIPATION Last Admin: 08/08/18 14:27 Dose: 30 ml Melatonin (Melatonin) 5 mg PO HS PRN PRN Reason: INSOMNIA Last Admin: 08/08/18 21:38 Dose: 5 mg Ondansetron HCl (Zofran Inj) 4 mg IV.PUSH Q6H PRN PRN Reason: NAUSEA OR VOMITING Oxycodone/Acetaminophen (Percocet 5/325 Mg) 1 tab PO Q6H PRN PRN Reason: PAIN SCALE 6 TO 10 Last Admin: 08/10/18 08:48 Dose: 1 tab Pantoprazole Sodium (Protonix) 40 mg PO BID [facility] Last Admin: 08/13/18 09:43 Dose: 40 mg Pharmacy Profile Note (Coumadin Consult Pharmacy) 1 each OTHER UNSCH PRN PRN Reason: PHARMACY DOCUMENTATION Sennosides (Senokot) 17.2 mg PO Q12H PRN PRN Reason: Moderate Constipation Sodium Chloride (Ns Flush) 2 ml IV.FLUSH BID [facility] Last Admin: 08/13/18 09:43 Dose: 2 ml Sodium Chloride (Ns Flush) 2 ml IV.FLUSH PRN PRN PRN Reason: FLUSH AFTER USING IV ACCESS Tamsulosin HCl (Flomax) 0.4 mg PO DAILY [facility] Last Admin: 08/13/18 09:42 Dose: 0.4 mg Warfarin Sodium (Coumadin) 7.5 mg PO DAILY@1600 [facility] Last Admin: 08/11/18 17:44 Dose: 7.5 mg Physical Exam Vital signs: Vital Signs 08/12/18 16:00 08/12/18 20:00 08/13/18 00:00 Temperature 97.7 F 98.3 F 98.0 F Pulse Rate 60 63 64 Respiratory Rate 19 20 20 Blood Pressure 140/72 115/66 119/61 Pulse Oximetry 93 L 96 95 08/13/18 04:00 08/13/18 07:59 08/13/18 11:49 Temperature 98.1 F 98.1 F 97.5 F L Pulse Rate 63 61 66 Respiratory Rate 20 19 19 Blood Pressure 128/70 127/72 162/91 H Pulse Oximetry 96 92 L 92 L Intake & Output 08/12/18 08/13/18 08/13/18 18:59 06:59 18:59 Intake Total 110 / 110 Balance 110 / 110 Weight 94.1 kg Intake: IV 110 / 110 Venofer Inj 200 MG In NS Inj 110 / 110 100 ML @ 110 mls/hr IV.SIG DAILY [facility] Rx#:[id number] Other: # Voids 3 Date of Last Bowel Movement 08/12/18 # Bowel Movements 1 - Constitutional no acute distress - Routine HEENT Exam Head: Present: normocephalic Eye: Present: PERRL ENT: Present: mucous membranes moist - Routine Neck Exam Present: full ROM - Routine Respiratory Exam Present: CTA bilaterally - Routine Cardiovascular Exam Present: S1, S2. Absent: murmur, gallop, rubs - Routine Abdominal Exam Present: normoactive bowel sounds - Routine Extremities Exam Present: full ROM, pulses intact, normal capillary refill. Absent: cyanosis, clubbing, edema - Routine Skin Exam Present: intact - Routine Neurological Exam Present: oriented X3 - Detailed Neurological Exam: Coma Scale Eye Opening: Spontaneous Verbal Response: Oriented Motor Response: Obey commands César Coma Scale Total: 15 - Routine Psychiatric Exam Present: normal affect Results 08/13/18 06:41 08/13/18 06:11 Coagulation 08/12/18 08/13/18 Range/Units 06:41 06:41 PT 30.3 H 37.1 H (9.8-11.6) sec CBC 08/12/18 08/13/18 Range/Units 06:41 06:41 WBC 5.7 6.0 (4.0-11.0) th/mm3 RBC 3.44 L 3.50 L (4.50-5.90) mil/mm3 Hgb 9.4 L 9.4 L (13.0-17.0) gm/dL Hct 28.9 L 29.3 L (39.0-51.0) % Plt Count 232 232 (150-450) th/mm3 Neut # (Auto) 3.7 3.9 (1.8-7.7) th/mm3 Lymph # (Auto) 1.5 1.5 (1.0-4.8) th/mm3 [place] # (Auto) 0.5 0.6 (0.0-0.9) th/mm3 Eos # (Auto) 0.0 0.0 (0.0-0.4) th/mm3 Baso # (Auto) 0.0 0.0 (0.0-0.2) th/mm3 Comprehensive Metabolic Panel 08/12/18 08/13/18 Range/Units 06:41 06:11 Sodium 142 144 (136-145) meq/L Potassium 4.7 5.0 (3.5-5.1) meq/L Chloride 108 H 111 H (98-107) meq/L Carbon Dioxide 26.1 28.6 (21.0-32.0) meq/L BUN 76 H 75 H (7-18) mg/dL Creatinine 4.10 H 3.93 H (0.60-1.30) mg/dL Calcium 8.0 L 7.6 L (8.5-10.1) mg/dL Intake and Output 08/13/18 08/13/18 08/13/18 06:59 14:59 22:59 Other: # Voids 3 # Bowel Movements 1 Weight 94.1 kg Assessment and Plan - Assessment (1) Nonsustained ventricular tachycardia Code(s): I47.2 - Ventricular tachycardia Status: Acute (2) Hypertension Code(s): I10 - Essential (primary) hypertension Status: Chronic (3) CKD (chronic kidney disease) Code(s): N18.9 - Chronic kidney disease, unspecified Status: Chronic (4) H/O heart artery stent Code(s): Z95.5 - Presence of coronary angioplasty implant and graft Status: Acute (5) GI bleed Code(s): K92.2 - Gastrointestinal hemorrhage, unspecified Status: Acute (6) Anemia Code(s): D64.9 - Anemia, unspecified Status: Acute (7) Illicit drug use Code(s): F19.90 - Other psychoactive substance use, unspecified, uncomplicated Status: Acute (8) Cocaine abuse Code(s): F14.10 - Cocaine abuse, uncomplicated Status: Chronic (9) Noncompliance with medication regimen Code(s): Z91.14 - Patient's other noncompliance with medication regimen Status : Acute - Plan Patient continues to remain stable from a cardiology standpoint. There have been no new episodes of NSVT. We will continue with the current cardiac treatment plan. Nephrology evaluation and treatment in progress due to impaired renal function. We will continue to monitor the patient during his hospitalization. He can be cleared for discharge from a cardiology standpoint. The patient was seen and evaluated by Dr. Cunha who participated in care, management decision making. - Attending Attestation Patient seen and examined. I reviewed and agree with the evaluation and plan as presented. No new cardiac issues. Continue current program. DC home as planned. (2) Hypertension Qualifiers: Hypertension type: unspecified Qualified Code(s): I10 - Essential (primary) hypertension (3) CKD (chronic kidney disease) Qualifiers: Chronic kidney disease stage: unspecified stage Qualified Code(s): N18.9 - Chronic kidney disease, unspecified (5) GI bleed Qualifiers: GI bleed type/associated pathology: unspecified gastrointestinal hemorrhage type Qualified Code(s): K92.2 - Gastrointestinal hemorrhage, unspecified (6) Anemia Qualifiers: Anemia type: other cause Other causes of anemia: acute posthemorrhagic Qualified Code(s): D62 - Acute posthemorrhagic anemia
== END 2018-08-13 16:17 | DRG 377 ==
LOC: NEPC 12:31 → NEDA 15:22 → N07 17:56 → N03 08-06 04:50 → N07 08-08 18:34
PROVIDERS: ADMIT Hospitalist; ATTEND Hospitalist
PROC: PANENDO (2018-08-05 12:51)
DX: F17.210 Nicotine dependence, cigarettes, uncomplicated; I25.2 Old myocardial infarction; D62 Acute posthemorrhagic anemia; M25.571 Pain in right ankle and joints of right foot; I48.0 Paroxysmal atrial fibrillation; D68.9 Coagulation defect, unspecified; I95.9 Hypotension, unspecified; K29.51 Unspecified chronic gastritis with bleeding; F14.10 Cocaine abuse, uncomplicated; Z91.14 Patient's other noncompliance with medication regimen; I25.10 Atherosclerotic heart disease of native coronary artery without angina pectoris; I87.2 Venous insufficiency (chronic) (peripheral); M10.9 Gout, unspecified; Z79.82 Long term (current) use of aspirin; N18.4 Chronic kidney disease, stage 4 (severe); I13.0 Hypertensive heart and chronic kidney disease with heart failure and stage 1 through stage 4 chronic kidney disease, or unspecified chronic kidney disease; Z95.1 Presence of aortocoronary bypass graft; E78.5 Hyperlipidemia, unspecified; N17.9 Acute kidney failure, unspecified; Z82.49 Family history of ischemic heart disease and other diseases of the circulatory system; I50.33 Acute on chronic diastolic (congestive) heart failure; E66.9 Obesity, unspecified; Z95.5 Presence of coronary angioplasty implant and graft; Z79.899 Other long term (current) drug therapy; Z79.01 Long term (current) use of anticoagulants; I47.2 Ventricular tachycardia
CPT/HCPCS: 36430; 36600; 71010; 71045; 76775; 76937; 80048; 80053; 80069; 81001; 82550; 82728; 82805; 83520; 83540; 83550; 83880; 84100; 84165; 84484; 85025; 85027; 85379; 85610; 85730; 86021; 86038; 86039; 86850; 86900; 86901; 86923; 86927; 88305; 88312; 93005; 93308; 93971; 94003; 94640; 94657; 94665; 97162; 99285; C9113; C9503; J1756; J1940; J2704; J3430; J7050; J7506; J7512; P9016; P9017

== ENCOUNTER 2018-08-17 01:21 | Inpatient (IN) ==
[2018-08-17] MEDS ORDERED: MethylPREDNISolone Sod Succinate Inj 125 MG/2 ML Vial IV.PUSH ONE (01:31)
--- NOTE | 2018-08-17 01:37 | ED ---
HPI General Chief Complaint: Shortness of Breath/Dyspnea Stated Complaint: Respiratory Time Seen by Provider: 08/17/18 01:28 Source: patient and EMS Mode of arrival: EMS Limitations: no limitations History of Present Illness MD Complaint: Reports shortness of breath and cough Onset (ago): day(s) (5) Context: Reports recent illness Severity: moderate Consistency/Duration: constant Relieving factors: bronchodilators and upright position Exacerbating factors: coughing Known history of: Reports COPD and congestive heart failure Treatment prior to arrival: Reports oxygen and bronchodilator Related Data Home Medications Medication Instructions Recorded Confirmed benzocaine-menthol 1 misty MUCOUS MEMBRANE Q2-4H PRN 06/12/18 08/17/18 ipratropium-albuterol 3 ml INHALATION Q6-8H PRN 08/17/18 08/17/18 Previous Rx's Medication Instructions Recorded amlodipine 10 mg PO DAILY #30 tab 07/08/18 aspirin [Aspir-Low] 81 mg PO DAILY #30 tab 07/08/18 atenolol 50 mg PO DAILY #30 tab 07/08/18 atorvastatin 40 mg PO DAILY #30 tab 07/08/18 colchicine [Colcrys] 0.6 mg PO BID PRN #6 tab 07/08/18 gabapentin 100 mg PO BID #60 cap 07/08/18 loratadine 10 mg PO DAILY #30 cap 07/08/18 tamsulosin 0.4 mg PO DAILY #30 cap 07/08/18 hydralazine 25 mg PO TID #90 tab 08/13/18 pantoprazole 40 mg PO BID 30 Days #60 tab 08/13/18 Allergies Allergy/AdvReac Type Severity Reaction Status Date / Time morphine AdvReac Intermediate Confusion Verified 08/17/18 01:37 Review of Systems ROS: all other systems reviewed are negative PMFSH Social History Social History Substance History: Past History Second Hand Smoke Exposure: Yes Smoking Status: Former smoker Tobacco Type: Cigarettes Packs Per Day: 0.5 Cigarettes Per Day: 10.0 How Often Do You Have a Drink Containing Alcohol: Never Recent Travel in [place] within the Last 8 Weeks: No Recent Out of Country Travel within the Last 8 Weeks: No Exam Narrative Exam Narrative: GENERAL: 63-year-old male well-nourished well-developed moderate respiratory distress, difficult historian answers with single words or very short sentences after long pauses SKIN: Focused skin assessment warm/dry. HEAD: Atraumatic. Normocephalic. EYES: Pupils equal and round. No scleral icterus. No injection or drainage. ENT: No nasal bleeding or discharge. Mucous membranes pink and moist. NECK: Trachea midline. No JVD. CARDIOVASCULAR: Rate in 80s. Regular rhythm. RESPIRATORY: Wheezing present bilaterally. Respiratory rate 24. GASTROINTESTINAL: Abdomen soft, non-tender, nondistended. Hepatic and splenic margins not palpable. MUSCULOSKELETAL: No gross abnormality. 3+ pitting edema ankles bilaterally. No asymmetry, warmth, erythema, induration. NEUROLOGICAL: Awake and alert. No obvious cranial nerve deficits. Motor grossly within normal limits. Normal speech. PSYCHIATRIC: Appropriate mood and affect; insight and judgment normal. Course Initial Documented Vital Signs Pulse Rate 88 08/17/18 01:30 Respiratory Rate 28 H 08/17/18 01:30 Last Documented Vital Signs Temperature 99.3 F 08/17/18 01:31 Pulse Rate 82 08/17/18 05:04 Respiratory Rate 30 H 08/17/18 05:04 Blood Pressure 149/74 H 08/17/18 05:04 Pulse Oximetry 93 L 08/17/18 05:04 Critical Care Time Critical Care Time: Yes Total Critical Care Time: 40 Attestation: Aggregate critical care time was 40 minutes. Time to perform other separately billable procedures was not included in the critical care time. My time did not include minutes spent treating any other patients simultaneously or on activities that did not directly contribute to the patient's treatment. The services I provided to this patient were to treat and/or prevent clinically significant deterioration that could result in: hypoxia, cardiopulmonary arrest I provided critical care services requiring my management, as noted below: Chart data review, documentation time, medication orders and management, vital sign assessments/reviewing monitor data, ordering and reviewing lab tests, ordering and interpreting/reviewing x-rays and diagnostic studies, care of the patient and discussion of the patient with the admitting physicians. Medical Decision Making MDM Narrative Medical decision making narrative: EKG is a sinus rhythm at a rate of 81 with left atrial enlargement and possible right ventricular conduction delay CXR pulmonary edema 63 yo M with hx of CRI, recent GI bleed with admission here with endoscopy showing gastritis, CHF, CAD s/p CABG, HTN, HLD arrives from [facility] with dyspnea and cough which pt states has been continuous since discharge from here about one week prior. EMS gave nebulizer treatments en route here which helped minimally. pt reports NGUYEN and orthopnea. pt denies fever/chills. he reports compliance with medications and snf. WBC 11,700 Hb 8.0 Plt 168 BUN/Cr 65/3.8 LFTs normal BNP 1381 Tn 0.04 40mg IV lasix given without any change pt refused abg pt refused bipap RN d/w Dr Cleary who advised [facility] management D/w Dr Thompson for music director service who accepted the patient Medical Screen Exam Complete: Yes Emergency Medical Condition: Yes Lab Data Result diagrams: 08/17/18 01:43 08/17/18 01:43 Lab Results 08/17/18 08/17/18 08/17/18 Range/Units 01:43 01:43 01:43 WBC 11.7 H (4.0-11.0) th/mm3 RBC 2.93 L (4.50-5.90) mil/mm3 Hgb 8.0 L (13.0-17.0) gm/dL Hct 25.2 L (39.0-51.0) % MCV 85.9 (80.0-100.0) fL MCH 27.1 (27.0-34.0) pg MCHC 31.6 L (32.0-36.0) % RDW 19.8 H (11.6-17.2) % Plt Count 168 (150-450) th/mm3 MPV 7.1 (7.0-11.0) fL Neut % (Auto) 57.1 (16.0-70.0) % Lymph % (Auto) 32.4 (9.0-44.0) % [place] % (Auto) 9.4 H (0.0-8.0) % Eos % (Auto) 0.7 (0.0-4.0) % Baso % (Auto) 0.4 (0.0-2.0) % Neut # (Auto) 6.7 (1.8-7.7) th/mm3 Lymph # (Auto) 3.8 (1.0-4.8) th/mm3 [place] # (Auto) 1.1 H (0.0-0.9) th/mm3 Eos # (Auto) 0.1 (0.0-0.4) th/mm3 Baso # (Auto) 0.1 (0.0-0.2) th/mm3 WBC Differential . Differential Comment Auto diff final PT (9.8-11.6) sec INR Ratio APTT (23.4-31.7) sec Sodium 145 (136-145) meq/L Potassium 5.1 (3.5-5.1) meq/L Chloride 113 H (98-107) meq/L Carbon Dioxide 24.6 (21.0-32.0) meq/L Anion Gap 7 (5-15) meq/L BUN 65 H (7-18) mg/dL Creatinine 3.88 H (0.60-1.30) mg/dL Estimated GFR 19 L (>89) mL/min Random Glucose 138 H (74-106) mg/dL Calcium 7.6 L (8.5-10.1) mg/dL Total Bilirubin 0.7 (0.2-1.0) mg/dL AST 15 (15-37) U/L ALT 14 (12-78) U/L Alkaline Phosphatase 74 (45-117) U/L Troponin I 0.04 (0.02-0.05) ng/mL B-Natriuretic Peptide 1381 H (0-100) pg/mL Total Protein 6.8 (6.4-8.2) g/dL Albumin 2.5 L (3.4-5.0) g/dL Urine Opiates Screen (Neg) Ur Barbiturates Screen (Neg) Ur Amphetamines Screen (Neg) U Benzodiazepines Scrn (Neg) Urine Cocaine Screen (Neg) U Cannabinoids Screen (Neg) Blood Type Blood Type Recheck Antibody Screen 08/17/18 08/17/18 08/17/18 Range/Units 01:43 02:55 03:30 WBC (4.0-11.0) th/mm3 RBC (4.50-5.90) mil/mm3 Hgb (13.0-17.0) gm/dL Hct (39.0-51.0) % MCV (80.0-100.0) fL MCH (27.0-34.0) pg MCHC (32.0-36.0) % RDW (11.6-17.2) % Plt Count (150-450) th/mm3 MPV (7.0-11.0) fL Neut % (Auto) (16.0-70.0) % Lymph % (Auto) (9.0-44.0) % [place] % (Auto) (0.0-8.0) % Eos % (Auto) (0.0-4.0) % Baso % (Auto) (0.0-2.0) % Neut # (Auto) (1.8-7.7) th/mm3 Lymph # (Auto) (1.0-4.8) th/mm3 [place] # (Auto) (0.0-0.9) th/mm3 Eos # (Auto) (0.0-0.4) th/mm3 Baso # (Auto) (0.0-0.2) th/mm3 WBC Differential Differential Comment PT 14.6 H D (9.8-11.6) sec INR 1.4 Ratio APTT 44.4 H (23.4-31.7) sec Sodium (136-145) meq/L Potassium (3.5-5.1) meq/L Chloride (98-107) meq/L Carbon Dioxide (21.0-32.0) meq/L Anion Gap (5-15) meq/L BUN (7-18) mg/dL Creatinine (0.60-1.30) mg/dL Estimated GFR (>89) mL/min Random Glucose (74-106) mg/dL Calcium (8.5-10.1) mg/dL Total Bilirubin (0.2-1.0) mg/dL AST (15-37) U/L ALT (12-78) U/L Alkaline Phosphatase (45-117) U/L Troponin I (0.02-0.05) ng/mL B-Natriuretic Peptide (0-100) pg/mL Total Protein (6.4-8.2) g/dL Albumin (3.4-5.0) g/dL Urine Opiates Screen Neg (Neg) Ur Barbiturates Screen Neg (Neg) Ur Amphetamines Screen Neg (Neg) U Benzodiazepines Scrn Neg (Neg) Urine Cocaine Screen Neg (Neg) U Cannabinoids Screen Neg (Neg) Blood Type A Positive Blood Type Recheck Not needed Antibody Screen Negative Imaging Data Radiologist's impression: Chest X-Ray 08/17/18 01:31 CONCLUSION: Cardiomegaly with bibasilar consolidations and small right effusion. This would suggest pulmonary edema. Discharge Plan Discharge Disposition Patient Disposition: ED Admit(ED Internal Use Only) Discharge Order Discharge Orders: ED Use Only Admit Order (Routine); Ordered 08/17/18 Ordered By: Servando Cintron Physicians Team ED Provider: Servando Cintron Primary Care Provider: NATHANIEL, Attending Provider: Ezekiel Thompson Discharge Interventions Interventions: ED Discharge Assessment Last Done: 08/17/18 05:03 Status ED Status: Admitted Patient
[2018-08-17 02:01] LABS: Baso # (Auto) 0.1 th/mm3 (0.0-0.2); Baso % (Auto) 0.4 % (0.0-2.0); Eos # (Auto) 0.1 th/mm3 (0.0-0.4); Eos % (Auto) 0.7 % (0.0-4.0); Hematocrit 25.2 % (39.0-51.0); Lymph # (Auto) 3.8 th/mm3 (1.0-4.8); Lymph % (Auto) 32.4 % (9.0-44.0); Mean Corpuscular HGB Conc 31.6 % (32.0-36.0); Mean Corpuscular Hemoglobin 27.1 pg (27.0-34.0); Mean Corpuscular Volume 85.9 fL (80.0-100.0); Mean Platelet Volume 7.1 fL (7.0-11.0); Mono # (Auto) 1.1 th/mm3 (0.0-0.9); Mono % (Auto) 9.4 % (0.0-8.0); Neut # (Auto) 6.7 th/mm3 (1.8-7.7); Neut % (Auto) 57.1 % (16.0-70.0); Platelet Count 168 th/mm3 (150-450); Red Blood Count 2.93 mil/mm3 (4.50-5.90); Red Cell Distribution Width 19.8 % (11.6-17.2); White Blood Count 11.7 th/mm3 (4.0-11.0)
--- NOTE | 2018-08-17 02:05 | XR ---
EXAM DATE: 08/17/2018 1:54 AM EST AGE/SEX: 63 years / Male INDICATIONS: Shortness of breath. CLINICAL DATA: This is the patient's initial encounter. Patient reports that signs and symptoms have been present for 1 day and indicates a pain score of 0/10. MEDICAL/SURGICAL HISTORY: . Hypercholesterolemia. Hypertension. Myocardial infarction. Coronary artery disease. Congestive heart failure. Substance abuse. Chronic kidney disease. . Appendectomy. CABG. Hernia repair. Back surgery. COMPARISON: [facility] – [place], CHEST 1V SINGLE AP, 08/07/2018. . FINDINGS: A single AP view of the chest demonstrates stable mild cardiomegaly. A tiny right effusion is noted. No effusion on the left. By basilar patchy areas of consolidation involving both lungs. Median sterno cassie wires. CONCLUSION: Cardiomegaly with bibasilar consolidations and small right effusion. This would suggest pulmonary clare ma. Electronically signed by: John Ramirez MD Board Certified Radiologist 08/17/2018 2:04 AM EST
[2018-08-17 02:14] LABS: Activated Partial Thrombo Time 44.4 sec (23.4-31.7); INR 1.4 Ratio; Prothrombin Time 14.6 sec (9.8-11.6)
[2018-08-17 02:20] LABS: Alanine Aminotransferase 14 U/L (12-78); Albumin 2.5 g/dL (3.4-5.0); Anion Gap 7 meq/L (5-15); Aspartate Aminotransferase 15 U/L (15-37); Blood Urea Nitrogen 65 mg/dL (7-18); Calcium 7.6 mg/dL (8.5-10.1); Carbon Dioxide 24.6 meq/L (21.0-32.0); Chloride 113 meq/L (98-107); Glomerular Filtration Rate 19 mL/min (>89); Glucose,Random 138 mg/dL (74-106); Potassium 5.1 meq/L (3.5-5.1); Sodium 145 meq/L (136-145)
[2018-08-17 02:24] LABS: Alkaline Phosphatase 74 U/L (45-117); Total Protein 6.8 g/dL (6.4-8.2); Troponin I 0.04 ng/mL (0.02-0.05)
[2018-08-17] MEDS ORDERED: metOLazone 5 MG Tablet PO STA (03:36)
[2018-08-17] MEDS ORDERED: Acetaminophen 325 MG Tablet PO PRN (03:37)
[2018-08-17] MEDS ORDERED: Bisacodyl 10 MG Supp RECTAL PRN (03:37)
[2018-08-17] MEDS ORDERED: Dextrose 50% in Water 50 ML Vial IV.PUSH PRN (03:37)
[2018-08-17 03:47] LABS: Amphetamine Screen,Urine Neg (Neg); Barbiturate Screen,Urine Neg (Neg); Cannabinoid Screen,Urine Neg (Neg); Cocaine Screen,Urine Neg (Neg)
[2018-08-17 03:48] LABS: Opiate Screen,Urine Neg (Neg)
--- NOTE | 2018-08-17 03:48 | P.HPCC ---
History of Present Illness Service: Critical care medicine Primary Care Physician: UNKNOWN Chief Complaint: shortness of breath History of Present Illness: 63-year-old male with stage IV CKD and heart failure with preserved EF who was recently admitted for GI bleeding and was discharged 4 days ago. Per review of last hospital records, his net I's and O's were approximately 1 L positive up from admission at the end of his hospital stay, and on day of discharge he did gain 2 kg. He states that ever since he was discharged home he felt more short of breath than prior to coming to the hospital. He has had worsening lower extremity edema and orthopnea. In the emergency department he was hypoxic requiring supplemental oxygen. BNP is greater than 1300. Chest x-ray demonstrates bilateral infiltrates suggestive of pulmonary edema. He denies chest pain, nausea, vomiting, constipation, diarrhea or abdominal pain. Remainder of the review systems is negative. Review of Systems All other systems reviewed negative except as stated in HPI PMFSH - History History Provided By: Patient, Medical Record - Medical History Medical History: Medical History (Last Reviewed 08/17/18 @ 03:44 by Ezekiel Thompson MD) Congestive heart failure Chronic kidney disease Coronary artery disease Hyperlipidemia Hypertension Myocardial infarct Cocaine use - Surgical History Surgical History: Surgical History (Last Reviewed 08/17/18 @ 03:44 by Ezekiel Thompson MD) H/O hernia repair History of appendectomy Previous back surgery S/P CABG x 2 Onset Date: ~05/30/17 - Family History Family History: Family History (Last Reviewed 08/17/18 @ 03:44 by Ezekiel Thompson MD) Mother Heart disease - Social History I have reviewed the patient's Social History: Yes - Tobacco History Second Hand Smoke Exposure: No Tobacco Use In Past 30 Days: Yes Smoking Status: Current some day smoker Tobacco Type: Cigarettes Packs Per Day: 0.5 Cigarettes Per Day: 10.0 - Alcohol History How Often Do You Have a Drink Containing Alcohol: Never - Substance Use History Substance History: No History of Abuse - Travel History Recent Travel in the [place] Within the Last 8 Weeks: No Recent Travel Out of the Country Within the Last 8 Weeks: No - Immunization History Tetanus Immunization: Unsure Medications and Allergies Active Medications: Active Medications Acetaminophen (Tylenol) 650 mg PO Q6H PRN PRN Reason: TEMPERATURE > 101 F Albuterol (Duoneb Neb (Prn)) 1 ampul NEB Q2HR NEB PRN PRN Reason: WHEEZING Albuterol (Duoneb Neb (Fer)) 1 ampul NEB Q6HR NEB FER Bisacodyl (Dulcolax Supp) 10 mg RECTAL DAILY PRN PRN Reason: if no BM in last 24h Chlorhexidine Gluconate (Chlorhexidine 2% Cloth) 3 pack TOPICAL DAILY@0400 FER Stop: 08/22/18 03:59 Chlorhexidine Gluconate (Chlorhexidine 2% Cloth) 3 pack TOPICAL DAILY@0400 PRN PRN Reason: Extra cloth needed Stop: 08/22/18 03:59 Dextrose (D50w Vial) 50 ml IV.PUSH UNSCH PRN PRN Reason: PER HYPOGLYCEMIA PROTOCOL Glucagon (Glucagon Inj) 1 mg OTHER PRN PRN PRN Reason: for Hypoglycemia Protocol Heparin Sodium (Porcine) (Heparin Inj) 5,000 units SQ Q12HR FER Furosemide 100 mg/ Sodium (Chloride) 100 mls @ 10 mls/hr IV.CONT .Q10H FER Insulin Human Regular (Novolin R Correctional Sugar Inj) 0 units SQ ACHS AND 3AM FER; Protocol Lactulose (Lactulose Liq) 30 ml PO BID FER Metolazone (Zaroxolyn) 5 mg PO STAT STA Stop: 08/17/18 03:37 Metolazone (Zaroxolyn) 5 mg PO DAILY FER Ondansetron HCl (Zofran Inj) 4 mg IV.PUSH Q6H PRN PRN Reason: NAUSEA OR VOMITING Pantoprazole Sodium (Protonix Inj) 40 mg IV.PUSH Q12H FER Polyethylene Glycol (Miralax) 17 gm PO BID FER Senna/Docusate Sodium (Cira-Colace) 1 tab PO BID [facility] Sodium Chloride (Ns Flush) 2 ml IV.FLUSH UNSCH PRN PRN Reason: FLUSH AFTER USING IV ACCESS Allergies Allergy/AdvReac Type Severity Reaction Status Date / Time morphine AdvReac Intermediate Confusion Verified 08/17/18 01:37 Home Medications Medication Instructions Recorded Confirmed Type benzocaine-menthol 1 misty MUCOUS MEMBRANE Q2-4H PRN 06/12/18 08/17/18 History ipratropium-albuterol 3 ml INHALATION Q6-8H PRN 08/17/18 08/17/18 History Results - Labs CBC & Chem 7: 08/17/18 01:43 08/17/18 01:43 Labs: Short CBC 08/17/18 Range/Units 01:43 WBC 11.7 H (4.0-11.0) th/mm3 Hgb 8.0 L (13.0-17.0) gm/dL Hct 25.2 L (39.0-51.0) % Plt Count 168 (150-450) th/mm3 BMP 08/17/18 01:43 Sodium 145 Potassium 5.1 Chloride 113 H Carbon Dioxide 24.6 BUN 65 H Creatinine 3.88 H Calcium 7.6 L Cardiac Enzymes 08/17/18 Range/Units 01:43 Troponin I 0.04 (0.02-0.05) ng/mL Liver Function 08/17/18 Range/Units 01:43 Total Bilirubin 0.7 (0.2-1.0) mg/dL AST 15 (15-37) U/L ALT 14 (12-78) U/L Alkaline Phosphatase 74 (45-117) U/L Albumin 2.5 L (3.4-5.0) g/dL - Imaging Impressions Chest X-Ray 08/17/18 01:31 CONCLUSION: Cardiomegaly with bibasilar consolidations and small right effusion. This would suggest pulmonary edema. Exam Vital signs: Vital Signs 08/17/18 01:30 08/17/18 01:31 08/17/18 01:35 Temperature 37.4 C Pulse Rate 88 82 82 Respiratory Rate 28 H 32 H 28 H Blood Pressure 122/84 Pulse Oximetry 92 L 08/17/18 01:38 08/17/18 01:46 08/17/18 01:51 Temperature Pulse Rate 82 89 Respiratory Rate 24 Blood Pressure Pulse Oximetry 92 L 92 L 08/17/18 02:47 08/17/18 02:48 Temperature Pulse Rate 82 84 Respiratory Rate 20 22 Blood Pressure 146/76 H Pulse Oximetry 72 L 92 L Intake & Output 08/16/18 08/16/18 08/17/18 06:59 18:59 06:59 Output Total 125 / 125 Balance -125 / -125 Weight 94.256 kg Output: Urine 125 / 125 Narrative: GENERAL: Middle-age male, lying in bed, no acute distress HEENT: Normocephalic. Atraumatic. Pupils equal, round, reactive, conjugate. Mucous membranes are moist NECK: Trachea is midline. Significant JVD evident up to the mid neck. CHEST: Equal chest rise. Nasal cannula oxygen. Unlabored. CARDIOVASCULAR: Normal rate, regular rhythm. Sinus. ABDOMEN: Soft, nontender, nondistended. No guarding. MUSCULOSKELETAL: Pulses 2+. 2+ pitting edema of the lower extremities. NEUROLOGICAL: RASS 0. GCS 15. CAM -. Follows commands in all 4 extremities. No focal deficits. Caprini VTE Risk Assessment Caprini VTE Risk Assessment: Moderate/High Risk (score >= 2) Caprini Risk Assessment Model: Point Value = 1 Point Value = 2 Point Value = 3 Point Value = 5 Age 41-60 Minor surgery BMI > 25 kg/m2 Swollen legs Varicose veins or History of unexplained or recurrent spontaneous Oral contraceptives or hormone replacement Sepsis (< 1 month) Serious lung disease, including pneumonia (< 1 month) Abnormal pulmonary function Acute myocardial infarction Congestive heart failure (< 1 month) History of inflammatory bowel disease Medical patient at bed rest Age 61-74 Arthroscopic surgery Major open surgery (> 45 min) Laparoscopic surgery (> 45 min) Malignancy Confined to bed (> 72 hours) Immobilizing plaster cast Central venous access Age >= 75 History of VTE Family history of VTE Factor V Leiden Prothrombin [id number] Lupus anticoagulant Anticardiolipin antibodies Elevated serum homocysteine Heparin-induced thrombocytopenia Other congenital or acquired thrombophilia Stroke (< 1 month) Elective arthroplasty Hip, pelvis, or leg fracture Acute spinal cord injury (< 1 month) Prophylaxis Regimen: Total Risk Factor Score Risk Level Prophylaxis Regimen 0-1 Low Early ambulation 2 Moderate Order ONE of the following: *Sequential Compression Device (SCD) *Heparin 5000 units SQ BID 3-4 Higher Order ONE of the following medications: *Heparin 5000 units SQ TID *Enoxaparin/Lovenox 40 mg SQ daily (WT < 150 kg, CrCl > 30 mL/min) *Enoxaparin/Lovenox 30 mg SQ daily (WT < 150 kg, CrCl > 10-29 mL/min) *Enoxaparin/Lovenox 30 mg SQ BID (WT < 150 kg, CrCl > 30 mL/min) AND/OR *Sequential Compression Device (SCD) 5 or more Highest Order ONE of the following medications: *Heparin 5000 units SQ TID (Preferred with Epidurals) *Enoxaparin/Lovenox 40 mg SQ daily (WT < 150 kg, CrCl > 30 mL/min) *Enoxaparin/Lovenox 30 mg SQ daily (WT < 150 kg, CrCl > 10-29 mL/min) *Enoxaparin/Lovenox 30 mg SQ BID (WT < 150 kg, CrCl > 30 mL/min) AND *Sequential Compression Device (SCD) Assessment and Plan - Assessment and Plan Plan: Assessment this is a 63-year-old male with stage IV CKD and heart failure with preserved EF who presents with acute severe diastolic type congestive heart failure exacerbation. Review of the records, this may likely be secondary to iatrogenic fluid overload from prior admission. We will start forced diuresis with Lasix infusion. At the request of the emergency room physician we will admit the patient to the intensive care unit. Severe acute diastolic type congestive heart failure exacerbation - lasix drip - daily metolazone - daily weights Acute pulmonary edema Acute hypoxemia requiring supplemental oxygen - wean o2 for goal spo2 > 90% - forced diuresis as above - AM CXR - prn nebs Stage IV CKD - forced diuresis - strict i/o's - daily Cr monitoring Anemia secondary to acute blood loss from recent GI bleed - no evidence of active GI bleeding at this time - iv bid ppi - trend hgb on daily cbc - drop from 9-->8 over last 4 days may be related to dilution from CHF - does not meet transfusion triggers at this time. renal/cardiac diet as tolerated SCDs SQH q12h
[2018-08-17] MEDS ORDERED: Chlorhexidine Gluconate 2% 1 Pack (2 Cloths) TOPICAL PRN (04:00)
[2018-08-17] MEDS: Furosemide Inj 100 MG in Sodium Chlor 0.9% Inj 90 ML IV.CONT SCH ×2 (04:10→15:39)
[2018-08-17] MEDS: Chlorhexidine Gluconate 2% 1 Pack (2 Cloths) TOPICAL SCH (06:20)
[2018-08-17] MEDS: Pantoprazole Inj 40 MG Vial IV.PUSH SCH ×2 (06:20→18:13)
[2018-08-17] MEDS: Heparin - SQ 10,000 UNITS/ML Vial SQ SCH ×2 (08:45→22:24)
[2018-08-17] MEDS: Polyethylene Glycol 3350 17 GM Packet PO SCH ×2 (08:46→22:24)
[2018-08-17] MEDS: Senna/Docusate Sodium 8.6/50 MG Tablet PO SCH ×2 (08:46→22:25)
[2018-08-17] MEDS: metOLazone 5 MG Tablet PO SCH (08:46)
[2018-08-17] MEDS: Insulin NovoLIN Regular Correctional Sugar Inj SQ SCH ×4 (08:56→22:25)
--- NOTE | 2018-08-17 11:29 | ECG ---
Date Performed: 08/17/2018 Time Performed: 01:40:24 PTAGE: 63 years EKG: Sinus rhythm POSSIBLE LEFT ATRIAL ENLARGEMENT POSSIBLE RIGHT VENTRICULAR CONDUCTION DELAY T-WAVE ABNORMALITY, CON HIGH VALUE ASSOCIATE LATERAL ISCHEMIA ABNORMAL ECG PREVIOUS TRACING : 08/03/2018 13.44 No significant change from previous tracing noted. DOCTOR: Javier Jarvis Interpretating Date/Time 08/17/2018 11:28:41
[2018-08-17] MEDS: Sodium Chloride 0.9% 2 ML Flush BID IV.FLUSH SCH ×2 (13:12→22:25)
[2018-08-18] MEDS: Furosemide Inj 100 MG in Sodium Chlor 0.9% Inj 90 ML IV.CONT SCH ×3 (01:18→22:16)
[2018-08-18 01:27] LABS: Anion Gap 9 meq/L (5-15); Blood Urea Nitrogen 83 mg/dL (7-18); Calcium 8.2 mg/dL (8.5-10.1); Carbon Dioxide 24.7 meq/L (21.0-32.0); Chloride 109 meq/L (98-107); Glomerular Filtration Rate 16 mL/min (>89); Glucose,Random 183 mg/dL (74-106); Magnesium 2.4 mg/dL (1.5-2.5); Phosphorus 4.2 mg/dL (2.5-4.9); Potassium 4.9 meq/L (3.5-5.1); Sodium 143 meq/L (136-145)
[2018-08-18] MEDS: Insulin NovoLIN Regular Correctional Sugar Inj SQ SCH ×5 (02:33→22:16)
[2018-08-18] MEDS: Chlorhexidine Gluconate 2% 1 Pack (2 Cloths) TOPICAL SCH (04:19)
[2018-08-18] MEDS: Pantoprazole Inj 40 MG Vial IV.PUSH SCH (04:20)
--- NOTE | 2018-08-18 05:22 | XR ---
EXAM DATE: 08/18/2018 5:03 AM EST AGE/SEX: 63 years / Male INDICATIONS: Shortness of breath. CLINICAL DATA: This is the patient's subsequent encounter. Patient reports that signs and symptoms h ave been present for 2 days and indicates a pain score of 8/10. MEDICAL/SURGICAL HISTORY: . Hypercholesterolemia. Hypertension. Myocardial infarction. Coronary artery disease. Congestive heart failure. Substance abuse. Chronic kidney disease. . Appendectomy. CABG. Hernia repair. Back surgery. [place] [facility]17/[place]. . FINDINGS: A single AP view of the chest demonstrates improvement in bibasilar consolidations. Tiny right effusi on is stable. Heart remains enlarged. Median sternotomy wires. CONCLUSION: Improvement in the bibasilar consolidations. Tiny right effusion and cardiomegaly remains. Electronically signed by: John Ramirez MD Board Certified Radiologist 08/18/2018 5:21 AM EST
[2018-08-18] MEDS: Sodium Chloride 0.9% 2 ML Flush BID IV.FLUSH SCH ×2 (08:24→22:16)
[2018-08-18] MEDS: Polyethylene Glycol 3350 17 GM Packet PO SCH ×2 (08:26→22:17)
[2018-08-18] MEDS: metOLazone 5 MG Tablet PO SCH (08:32)
[2018-08-18] MEDS: Senna/Docusate Sodium 8.6/50 MG Tablet PO SCH ×2 (08:32→22:23)
[2018-08-18] MEDS: Heparin - SQ 10,000 UNITS/ML Vial SQ SCH ×2 (08:32→22:23)
[2018-08-18 11:15] LABS: Baso % (Auto) 0.2 % (0.0-2.0); Hemoglobin 7.6 gm/dL (13.0-17.0); Lymph # (Auto) 1.1 th/mm3 (1.0-4.8); Lymph % (Auto) 14.4 % (9.0-44.0); Mean Corpuscular HGB Conc 32.8 % (32.0-36.0); Mean Corpuscular Hemoglobin 27.8 pg (27.0-34.0); Mean Corpuscular Volume 84.8 fL (80.0-100.0); Mean Platelet Volume 7.4 fL (7.0-11.0); Mono # (Auto) 0.5 th/mm3 (0.0-0.9); Mono % (Auto) 6.7 % (0.0-8.0); Neut # (Auto) 6.2 th/mm3 (1.8-7.7); Neut % (Auto) 78.7 % (16.0-70.0); Platelet Count 177 th/mm3 (150-450); Red Blood Count 2.72 mil/mm3 (4.50-5.90); Red Cell Distribution Width 19.4 % (11.6-17.2); White Blood Count 7.9 th/mm3 (4.0-11.0)
--- NOTE | 2018-08-18 11:50 | P.PNIM ---
Subjective Interval history: Follow-up heart failure. States he is breathing better still on nasal cannula. Limited mobility Physical Exam Vital signs: Vital Signs 08/17/18 12:00 08/17/18 12:15 08/17/18 13:00 Temperature 98 F Pulse Rate 72 74 64 Respiratory Rate 34 H 36 H 15 Blood Pressure 150/72 H 126/69 Pulse Oximetry 93 L 100 08/17/18 14:00 08/17/18 15:00 08/17/18 16:00 Temperature 98 F Pulse Rate 71 70 68 Respiratory Rate 19 17 16 Blood Pressure 135/83 140/68 119/57 L Pulse Oximetry 100 90 L 94 L 08/17/18 17:00 08/17/18 17:24 08/17/18 18:00 Temperature Pulse Rate 66 63 66 Respiratory Rate 18 16 15 Blood Pressure 125/82 137/78 Pulse Oximetry 100 100 08/17/18 19:00 08/17/18 19:40 08/17/18 20:00 Temperature 97.8 F Pulse Rate 75 66 64 Respiratory Rate 22 15 15 Blood Pressure 134/81 147/75 H Pulse Oximetry 84 L 98 98 08/17/18 21:00 08/17/18 22:00 08/17/18 23:00 Temperature Pulse Rate 64 60 74 Respiratory Rate 14 14 22 Blood Pressure 131/76 138/75 142/76 H Pulse Oximetry 95 99 100 08/18/18 00:00 08/18/18 01:00 08/18/18 02:00 Temperature 98.0 F Pulse Rate 68 70 65 Respiratory Rate 15 19 15 Blood Pressure 133/61 136/66 133/63 Pulse Oximetry 95 96 96 08/18/18 03:00 08/18/18 03:10 08/18/18 04:00 Temperature 98.1 F Pulse Rate 66 68 81 Respiratory Rate 20 16 16 Blood Pressure 135/63 143/68 H Pulse Oximetry 95 94 L 08/18/18 05:00 08/18/18 06:00 08/18/18 06:21 Temperature Pulse Rate 62 60 Respiratory Rate 12 14 Blood Pressure 125/69 Pulse Oximetry 99 99 68 L 08/18/18 06:42 08/18/18 08:00 08/18/18 08:35 Temperature 97.8 F Pulse Rate 67 Respiratory Rate Blood Pressure 136/75 Pulse Oximetry 96 08/18/18 08:51 08/18/18 09:28 08/18/18 10:00 Temperature Pulse Rate 65 79 78 Respiratory Rate 18 29 H 34 H Blood Pressure 131/66 152/70 H Pulse Oximetry 93 L 94 L Intake & Output 08/17/18 08/18/18 08/18/18 18:59 06:59 18:59 Intake Total 390 / 390 100 / 100 Output Total 1999 2500 / 2500 Balance -1610 / -1610 -2400 / -2400 Weight 92.6 kg Intake: IV 90 / 90 100 / 100 Lasix Inj 100 MG In NS Inj 90 90 / 90 100 / 100 ML @ 10 mls/hr IV.CONT .Q10H [facility] Rx#:[id number] Oral 300 / 300 Output: Urine 1999 2500 / 2500 Other: # Voids 3 Date of Last Bowel Movement 08/17/18 08/17/18 Narrative: GENERAL: Middle-age male, lying in bed, no acute distress CHEST: Equal chest rise. Nasal cannula oxygen. Unlabored. CARDIOVASCULAR: Normal rate, regular rhythm. Sinus. ABDOMEN: Soft, nontender, nondistended. No guarding. MUSCULOSKELETAL: Pulses 2+. 2+ pitting edema of the lower extremities. NEUROLOGICAL: RASS 0. GCS 15. CAM -. Follows commands in all 4 extremities. No focal deficits. Results Labs CBC & Chem 7: 08/18/18 10:50 08/18/18 10:50 Labs: Microbiology 08/17/18 02:55 Blood - Peripheral Aerobic Blood Culture - Preliminary No growth in 1 day 08/17/18 02:55 Blood - Peripheral Anaerobic Blood Culture - Preliminary No growth in 1 day 08/17/18 01:43 Blood - Peripheral Aerobic Blood Culture - Preliminary No growth in 1 day 08/17/18 01:43 Blood - Peripheral Anaerobic Blood Culture - Preliminary No growth in 1 day Imaging Imaging: Impressions Chest X-Ray 08/18/18 05:00 CONCLUSION: Improvement in the bibasilar consolidations. Tiny right effusion and cardiomegaly remains. Procedures Procedures: none Assessment and Plan Plan This is a 63-year-old male with stage IV CKD and heart failure with preserved EF who presents with acute severe diastolic type congestive heart failure exacerbation. Review of the records, this may likely be secondary to iatrogenic fluid overload from prior admission. Severe acute diastolic type congestive heart failure exacerbation. Improving - lasix drip - daily metolazone - daily weights Acute pulmonary edema. Improving Acute hypoxemia requiring supplemental oxygen - wean o2 for goal spo2 > 90% - forced diuresis as above -Improved chest x-ray - prn nebs Stage IV CKD - forced diuresis - strict i/o's - daily Cr monitoring. Consult nephrology Anemia secondary to acute blood loss from recent GI bleed - no evidence of active GI bleeding at this time check Hemoccult - bid ppi - trend hgb on daily cbc - drop over last few days may be related to dilution from CHF - does not meet transfusion triggers at this time. renal/cardiac diet as tolerated SCDs SQH q12h Keep in ICU while on lasix drip Progress Note: Quality VTE Deep Vein Thrombosis/Pulmonary Embolism Present on Admission: No
[2018-08-18 12:30] LABS: Calcium 8.3 mg/dL (8.5-10.1); Carbon Dioxide 24.5 meq/L (21.0-32.0); Magnesium 2.3 mg/dL (1.5-2.5); Potassium 4.4 meq/L (3.5-5.1)
[2018-08-18 12:31] LABS: Phosphorus 4.3 mg/dL (2.5-4.9)
--- NOTE | 2018-08-18 15:12 | P.CONNP ---
History of Present Illness Service: Nephrology Consult date: 08/18/18 Requesting Physician: Martin Herman Reason for Consult: Acute renal failure chronic kidney disease Primary Care Provider: UNKNOWN Chief Complaint: shortness of breath History of Present Illness: Patient is a 63-year-old male with history of chronic kidney disease stage IV, coronary artery disease status post CABG, COPD, chronic cigarette smoker who presented with increasing shortness of breath after getting discharged 5 days ago from the hospital, during that admission he was admitted for GI bleeding, he states he did not have bright red vomitus or he could not see any blood in the stools where he was told he is losing blood, he had endoscopies in was discharged in stable condition however he was getting fluids and has gained weight came back with increasing shortness of breath and has been in congestive heart failure and started on Lasix drip at 10 mg/h Urine output improved to 4.5 L creatinine declined from 4.4-4.2 baseline creatinine around 3-3.3. Review of Systems Constitutional: Reports lack of energy Eyes: Denies blind spots, Denies blurry vision, Denies bulging eyes, Denies change in vision, Denies double vision, Denies discharge, Denies dry eyes, Denies floaters, Denies irritation, Denies itchy eyes, Denies loss of vision, Denies pain, Denies requires corrective lenses, Denies sensitivity to light, Denies other Ears, Nose, Mouth, and Throat: Denies abnormal hearing, Denies bleeding gums, Denies bad breath, Denies change in voice, Denies dental pain, Denies difficulty swallowing, Denies dizziness, Denies dry mouth, Denies ear discharge , Denies ear pain, Denies facial pain, Denies headache(s), Denies hearing loss, Denies hoarseness, Denies lip swelling, Denies nosebleed, Denies mouth lesions, Denies mouth pain, Denies nasal congestion, Denies nasal discharge, Denies nasal obstruction, Denies nasal trauma, Denies neck lump, Denies neck pain, Denies nose pain, Denies pain with swallowing, Denies poor balance, Denies post nasal drip, Denies ringing in the ears, Denies sinus pain, Denies sinus pressure , Denies sore throat, Denies throat swelling, Denies tongue swelling, Denies other Cardiovascular: Reports shortness of breath, Reports shortness of breath with activity, Reports shortness of breath when lying down Respiratory: Reports shortness of breath Genitourinary: Denies blood in semen, Denies blood in urine, Denies decreased urination, Denies difficulty urinating, Denies difficulty with ejaculations, Denies erectile dysfunction, Denies genital lesions, Denies genital pain, Denies painful urination, Denies side pain, Denies frequent nighttime urination , Denies painful ejaculations, Denies penile discharge, Denies scrotal swelling , Denies testicle lump, Denies testicle pain, Denies urinary frequency, Denies urinary hesitancy, Denies urinary incontinence, Denies urinary urgency, Denies other Musculoskeletal: Reports back pain Skin/Breast: Denies acne, Denies bleeding lesions, Denies boil, Denies breast swelling, Denies breast skin changes, Denies breast pain, Denies breast lump, Denies change in breast shape, Denies change in hair, Denies change in skin color, Denies changing lesions, Denies dry skin, Denies excessive hair growth, Denies hair loss, Denies itching, Denies lesions, Denies nail changes, Denies new lesions, Denies nipple discharge, Denies non-healing lesions, Denies redness , Denies sensitivity to light, Denies rash, Denies skin pain, Denies skin ulcer , Denies sores, Denies stretch berg, Denies unusual bruising, Denies wounds, Denies yellowing of the skin, Denies other Neurologic: Reports weakness, Denies abnormal hearing, Denies abnormal movements , Denies abnormal speech, Denies abnormal walking, Denies behavioral changes, Denies burning sensations, Denies confusion, Denies dizziness, Denies fainting, Denies frequent falls, Denies headache(s), Denies lack of coordination, Denies localized weakness, Denies loss of vision, Denies memory loss, Denies numbness, Denies other visual disturbances, Denies radiating pain, Denies restless legs, Denies convulsions, Denies seizure-like activity, Denies sensory deficit, Denies tingling, Denies tingling/numbness/burning sensations, Denies tremor(s), Denies unsteadiness, Denies other Psychiatric: Denies abnormal sleep pattern, Denies anxiety, Denies behavioral changes, Denies change in appetite, Denies change in sex drive, Denies confusion , Denies depression, Denies difficulty concentrating, Denies hearing things others do not hear, Denies hopelessness, Denies irritability, Denies lack of enjoyment, Denies memory loss, Denies mood swings, Denies panic attacks, Denies paranoia, Denies seeing things others do not see, Denies sensing things others do not sense, Denies tactile hallucinations, Denies thoughts of hurting/killing others, Denies thoughts of hurting/killing yourself, Denies other Endocrine: Denies cold intolerance, Denies excessive sweating, Denies flushing, Denies heat intolerance, Denies increased hunger, Denies increased thirst, Denies increased urination, Denies rapid, pounding, or irregular heartbeat, Denies other Hematologic/Lymphatic: Denies easy bleeding, Denies easy bruising, Denies enlarged lymph nodes, Denies other Allergic/Immunologic: Denies GI upset with certain foods, Denies hives, Denies itchy eyes, Denies lip swelling, Denies seasonal runny nose, Denies throat swelling, Denies tongue swelling, Denies wheezing, Denies other PMFSH - History History Provided By: Patient - Medical History Medical History: Medical History (Last Reviewed 08/18/18 @ 15:08 by Yisel North MD) Congestive heart failure Chronic kidney disease Coronary artery disease Hyperlipidemia Hypertension Myocardial infarct Cocaine use - Surgical History Surgical History: Surgical History (Last Reviewed 08/18/18 @ 15:08 by Yisel North MD) H/O hernia repair History of appendectomy Previous back surgery S/P CABG x 2 Onset Date: ~05/30/17 - Family History Family History: Family History (Last Reviewed 08/18/18 @ 15:08 by Yisel North MD) Mother Heart disease - Tobacco History Second Hand Smoke Exposure: Yes Tobacco Use In Past 30 Days: Yes Smoking Status: Former smoker Tobacco Type: Cigarettes Packs Per Day: 0.5 Cigarettes Per Day: 10.0 - Alcohol History How Often Do You Have a Drink Containing Alcohol: Never - Substance Use History Substance History: Past History - Travel History Recent Travel in the [place] Within the Last 8 Weeks: No Recent Travel Out of the Country Within the Last 8 Weeks: No - Immunization History Tetanus Immunization: Unsure Medications and Allergies Active Medications: Active Medications Acetaminophen (Tylenol) 650 mg PO Q6H PRN PRN Reason: TEMPERATURE > 101 F Albuterol (Duoneb Neb (Prn)) 1 ampul NEB Q2HR NEB PRN PRN Reason: WHEEZING Albuterol (Duoneb Neb (Fer)) 1 ampul NEB Q6HR NEB [facility] Last Admin: 08/18/18 08:50 Dose: 1 ampul Amlodipine Besylate (Norvasc) 10 mg PO DAILY [facility] Atenolol (Tenormin) 50 mg PO DAILY [facility] Atorvastatin Calcium (Lipitor) 40 mg PO DAILY [facility] Bisacodyl (Dulcolax Supp) 10 mg RECTAL DAILY PRN PRN Reason: if no BM in last 24h Chlorhexidine Gluconate (Chlorhexidine 2% Cloth) 3 pack TOPICAL DAILY@0400 [facility] Stop: 08/22/18 03:59 Last Admin: 08/18/18 04:19 Dose: 3 pack Chlorhexidine Gluconate (Chlorhexidine 2% Cloth) 3 pack TOPICAL DAILY@0400 PRN PRN Reason: Extra cloth needed Stop: 08/22/18 03:59 Colchicine (Colcrys) 0.6 mg PO BID PRN PRN Reason: gout pain Dextrose (D50w Vial) 50 ml IV.PUSH UNSCH PRN PRN Reason: PER HYPOGLYCEMIA PROTOCOL Gabapentin (Neurontin) 100 mg PO BID [facility] Glucagon (Glucagon Inj) 1 mg OTHER PRN PRN PRN Reason: for Hypoglycemia Protocol Heparin Sodium (Porcine) (Heparin Inj) 5,000 units SQ Q12HR [facility] Last Admin: 08/18/18 08:32 Dose: 5,000 units Furosemide 100 mg/ Sodium (Chloride) 100 mls @ 10 mls/hr IV.CONT .Q10H [facility] Last Infusion: 08/18/18 10:35 Dose: 10 mls/hr Insulin Human Regular (Novolin R Correctional Sugar Inj) 0 units SQ ACHS [facility]; Protocol Lactulose (Lactulose Liq) 30 ml PO BID [facility] Last Admin: 08/18/18 08:26 Dose: Not Given Loratadine (Claritin) 10 mg PO DAILY [facility] Metolazone (Zaroxolyn) 5 mg PO DAILY [facility] Last Admin: 08/18/18 08:32 Dose: 5 mg Ondansetron HCl (Zofran Inj) 4 mg IV.PUSH Q6H PRN PRN Reason: NAUSEA OR VOMITING Pantoprazole Sodium (Protonix) 40 mg PO BID [facility] Polyethylene Glycol (Miralax) 17 gm PO BID [facility] Last Admin: 08/18/18 08:26 Dose: Not Given Senna/Docusate Sodium (Cira-Colace) 1 tab PO BID [facility] Last Admin: 08/18/18 08:32 Dose: 1 tab Sodium Chloride (Ns Flush) 2 ml IV.FLUSH UNSCH PRN PRN Reason: FLUSH AFTER USING IV ACCESS Sodium Chloride (Ns Flush) 2 ml IV.FLUSH BID [facility] Last Admin: 08/18/18 08:24 Dose: Not Given Allergies Allergy/AdvReac Type Severity Reaction Status Date / Time morphine AdvReac Intermediate Confusion Verified 08/17/18 01:37 Home Medications Medication Instructions Recorded Confirmed Type benzocaine-menthol 1 misty MUCOUS MEMBRANE Q2-4H PRN 06/12/18 08/17/18 History ipratropium-albuterol 3 ml INHALATION Q6-8H PRN 08/17/18 08/17/18 History Exam Vital signs: Vital Signs 08/17/18 16:00 08/17/18 17:00 08/17/18 17:24 Temperature 98 F Pulse Rate 68 66 63 Respiratory Rate 16 18 16 Blood Pressure 119/57 L 125/82 Pulse Oximetry 94 L 100 08/17/18 18:00 08/17/18 19:00 08/17/18 19:40 Temperature Pulse Rate 66 75 66 Respiratory Rate 15 22 15 Blood Pressure 137/78 134/81 Pulse Oximetry 100 84 L 98 08/17/18 20:00 08/17/18 21:00 08/17/18 22:00 Temperature 97.8 F Pulse Rate 64 64 60 Respiratory Rate 15 14 14 Blood Pressure 147/75 H 131/76 138/75 Pulse Oximetry 98 95 99 08/17/18 23:00 08/18/18 00:00 08/18/18 01:00 Temperature 98.0 F Pulse Rate 74 68 70 Respiratory Rate 22 15 19 Blood Pressure 142/76 H 133/61 136/66 Pulse Oximetry 100 95 96 08/18/18 02:00 08/18/18 03:00 08/18/18 03:10 Temperature Pulse Rate 65 66 68 Respiratory Rate 15 20 16 Blood Pressure 133/63 135/63 Pulse Oximetry 96 95 08/18/18 04:00 08/18/18 05:00 08/18/18 06:00 Temperature 98.1 F Pulse Rate 81 62 60 Respiratory Rate 16 12 14 Blood Pressure 143/68 H 125/69 Pulse Oximetry 94 L 99 99 08/18/18 06:21 08/18/18 06:42 08/18/18 08:00 Temperature Pulse Rate 67 Respiratory Rate Blood Pressure 136/75 Pulse Oximetry 68 L 96 08/18/18 08:35 08/18/18 08:51 08/18/18 09:28 Temperature 97.8 F Pulse Rate 65 79 Respiratory Rate 18 29 H Blood Pressure 131/66 Pulse Oximetry 93 L 08/18/18 10:00 Temperature Pulse Rate 78 Respiratory Rate 34 H Blood Pressure 152/70 H Pulse Oximetry 94 L Intake & Output 08/17/18 08/18/18 08/18/18 18:59 06:59 18:59 Intake Total 390 / 390 100 / 100 Output Total 1999 2500 / 2500 Balance -1610 / -1610 -2400 / -2400 Weight 92.6 kg Intake: IV 90 / 90 100 / 100 Lasix Inj 100 MG In NS Inj 90 90 / 90 100 / 100 ML @ 10 mls/hr IV.CONT .Q10H [facility] Rx#:[id number] Oral 300 / 300 Output: Urine 1999 2500 / 2500 Other: # Voids 3 Date of Last Bowel Movement 08/17/18 08/17/18 Narrative: GENERAL: Well-nourished, well-developed patient. SKIN: Warm and dry. HEAD: Normocephalic. EYES: No scleral icterus. No injection or drainage. NECK: Supple, trachea midline. No JVD or lymphadenopathy. CARDIOVASCULAR: Regular rate and rhythm without murmurs, gallops, or rubs. RESPIRATORY: Breath sounds diminished at bases GASTROINTESTINAL: Abdomen soft, non-tender, nondistended. EXTREMITIES: No edema NEUROLOGICAL: Awake, alert, and oriented x 3. Non-focal. Results - Lab Results 08/18/18 10:50 08/18/18 10:50 Most recent lab results Calcium 8.3 mg/dL (8.5-10.1) L 08/18/18 10:50 Phosphorus 4.3 mg/dL (2.5-4.9) 08/18/18 10:50 Magnesium 2.3 mg/dL (1.5-2.5) 08/18/18 10:50 Assessment and Plan - Assessment (1) Acute kidney injury superimposed on chronic kidney disease Code(s): N17.9 - Acute kidney failure, unspecified; N18.9 - Chronic kidney disease, unspecified Status: Acute Plan: Patient has been admitted for fluid overload and responded well to Lasix drip past 4.5 L creatinine is slowly declining continue supportive Monitor BMP Avoid nephrotoxic agents Follows with Dr. Khan (2) Hypertension Code(s): I10 - Essential (primary) hypertension Status: Chronic Plan: Continue to monitor his blood pressure (3) Noncompliance with medication regimen Code(s): Z91.14 - Patient's other noncompliance with medication regimen Status : Acute Plan: He has history of noncompliance and has been actively smoking he states he stopped 2 days ago (2) Hypertension Qualifiers: Hypertension type: unspecified Qualified Code(s): I10 - Essential (primary) hypertension
[2018-08-18] MEDS: Atenolol 50 MG Tablet PO SCH (18:43)
[2018-08-18] MEDS: Gabapentin 100 MG Capsule PO SCH (22:23)
[2018-08-19] MEDS: Chlorhexidine Gluconate 2% 1 Pack (2 Cloths) TOPICAL SCH (04:10)
[2018-08-19] MEDS: Furosemide Inj 100 MG in Sodium Chlor 0.9% Inj 90 ML IV.CONT SCH ×2 (05:50→07:21)
[2018-08-19] MEDS: Senna/Docusate Sodium 8.6/50 MG Tablet PO SCH ×2 (08:36→22:18)
[2018-08-19] MEDS: amLODIPine 10 MG Tablet PO SCH (08:36)
[2018-08-19] MEDS: Heparin - SQ 10,000 UNITS/ML Vial SQ SCH ×2 (08:37→22:17)
[2018-08-19] MEDS: metOLazone 5 MG Tablet PO SCH (08:37)
[2018-08-19] MEDS: Gabapentin 100 MG Capsule PO SCH ×2 (08:37→22:18)
[2018-08-19] MEDS: Atenolol 50 MG Tablet PO SCH (08:37)
[2018-08-19] MEDS: Loratadine 10 MG Tablet PO SCH (08:37)
[2018-08-19] MEDS: Sodium Chloride 0.9% 2 ML Flush BID IV.FLUSH SCH ×2 (08:38→22:18)
[2018-08-19] MEDS: Polyethylene Glycol 3350 17 GM Packet PO SCH ×2 (08:38→22:18)
[2018-08-19] MEDS: Insulin NovoLIN Regular Correctional Sugar Inj SQ SCH ×4 (08:52→22:24)
--- NOTE | 2018-08-19 09:50 | P.PNIM ---
Subjective Interval history: Follow-up fluid overload and stage IV kidney disease. He is doing well lost 7 kg from diuresis. Physical Exam Vital signs: Vital Signs 08/18/18 10:00 08/18/18 11:00 08/18/18 12:00 Temperature Pulse Rate 78 66 62 Respiratory Rate 34 H 32 H 28 H Blood Pressure 152/70 H 116/67 131/70 Pulse Oximetry 94 L 93 L 95 08/18/18 13:00 08/18/18 14:00 08/18/18 15:00 Temperature Pulse Rate 72 62 67 Respiratory Rate 22 19 30 H Blood Pressure 143/80 H 153/82 H 127/72 Pulse Oximetry 96 94 L 96 08/18/18 15:36 08/18/18 16:00 08/18/18 17:00 Temperature 97.7 F Pulse Rate 64 60 66 Respiratory Rate 18 16 29 H Blood Pressure 120/59 L 151/84 H Pulse Oximetry 94 L 97 08/18/18 18:00 08/18/18 19:46 08/18/18 20:00 Temperature 97.8 F Pulse Rate 56 L 62 60 Respiratory Rate 15 22 20 Blood Pressure 147/79 H 134/84 133/75 Pulse Oximetry 92 L 95 95 08/18/18 21:00 08/18/18 21:09 08/18/18 22:00 Temperature Pulse Rate 62 59 L 68 Respiratory Rate 24 Blood Pressure Pulse Oximetry 94 L 08/18/18 23:00 08/19/18 00:00 08/19/18 00:27 Temperature 98.2 F Pulse Rate 62 67 66 Respiratory Rate 18 Blood Pressure 128/70 Pulse Oximetry 93 L 08/19/18 02:00 08/19/18 02:52 08/19/18 03:24 Temperature Pulse Rate 66 64 55 L Respiratory Rate 20 Blood Pressure Pulse Oximetry 08/19/18 04:00 08/19/18 04:36 08/19/18 05:49 Temperature 98.2 F Pulse Rate 61 63 54 L Respiratory Rate 18 Blood Pressure 141/78 H Pulse Oximetry 92 L 08/19/18 07:00 08/19/18 08:00 08/19/18 08:54 Temperature 97.4 F L Pulse Rate 53 L 65 60 Respiratory Rate 15 19 18 Blood Pressure 128/74 142/81 H Pulse Oximetry 99 08/19/18 09:00 Temperature Pulse Rate 64 Respiratory Rate 28 H Blood Pressure 114/87 Pulse Oximetry 98 Intake & Output 08/18/18 08/19/18 08/19/18 18:59 06:59 18:59 Intake Total 700 / 700 700 / 700 Output Total 3100 / 3100 3250 / 3250 Balance -2400 / -2400 -2550 / -2550 Weight 85.5 kg Intake: IV 100 / 100 100 / 100 Lasix Inj 100 MG In NS Inj 90 100 / 100 100 / 100 ML @ 10 mls/hr IV.CONT .Q10H [facility] Rx#:[id number] Oral 600 / 600 600 / 600 Output: Urine 3100 / 3100 3250 / 3250 Other: Date of Last Bowel Movement 08/18/18 08/19/18 08/19/18 # Bowel Movements 1 1 Narrative: GENERAL: Middle-age male, lying in bed, no acute distress CHEST: Equal chest rise. Unlabored. CARDIOVASCULAR: Normal rate, regular rhythm. Sinus. ABDOMEN: Soft, nontender, nondistended. No guarding. MUSCULOSKELETAL: Pulses 2+. Improved 2+ pitting edema of the lower extremities. NEUROLOGICAL: Alert and oriented nonfocal Results Labs CBC & Chem 7: 08/18/18 10:50 08/18/18 10:50 Labs: Microbiology 08/17/18 02:55 Blood - Peripheral Aerobic Blood Culture - Preliminary No growth in 1 day 08/17/18 02:55 Blood - Peripheral Anaerobic Blood Culture - Preliminary No growth in 1 day 08/17/18 01:43 Blood - Peripheral Aerobic Blood Culture - Preliminary No growth in 1 day 08/17/18 01:43 Blood - Peripheral Anaerobic Blood Culture - Preliminary No growth in 1 day Procedures Procedures: none Assessment and Plan (1) Acute kidney injury superimposed on chronic kidney disease: Code(s): N17.9 - Acute kidney failure, unspecified; N18.9 - Chronic kidney disease, unspecified Status: Acute (2) Hypertension: Code(s): I10 - Essential (primary) hypertension Status: Chronic (3) Noncompliance with medication regimen: Code(s): Z91.14 - Patient's other noncompliance with medication regimen Status: Acute Plan This is a 63-year-old male with stage IV CKD and heart failure with preserved EF who presents with acute severe diastolic type congestive heart failure exacerbation. Review of the records, this may likely be secondary to iatrogenic fluid overload from prior admission. Severe acute diastolic type congestive heart failure exacerbation. Much improved responded well to Bumex drip - We will switch to p.o. diuretic pending BMP and discussion with nephrology - daily metolazone - daily weights Acute pulmonary edema. Resolving Acute hypoxemia requiring supplemental oxygen - wean o2 for goal spo2 > 90% - forced diuresis as above - Improved chest x-ray - prn nebs Stage IV CKD - forced diuresis - strict i/o's - daily Cr monitoring. Consulted nephrology Anemia secondary to acute blood loss from recent GI bleed - no evidence of active GI bleeding at this time check Hemoccult - bid ppi - trend hgb on daily cbc - drop over last few days may be related to dilution from CHF - does not meet transfusion triggers at this time. renal/cardiac diet as tolerated SCDs SQH q12h Transfer out of ICU once off Lasix drip then discharge back to rehab Discussed with nurse to follow-up pending labs Progress Note: Quality VTE Deep Vein Thrombosis/Pulmonary Embolism Present on Admission: No _ (1) Hypertension Qualifiers: Hypertension type: unspecified Qualified Code(s): I10 - Essential (primary) hypertension
[2018-08-19 11:21] LABS: Baso % (Auto) 0.6 % (0.0-2.0); Eos # (Auto) 0.1 th/mm3 (0.0-0.4); Eos % (Auto) 1.2 % (0.0-4.0); Hematocrit 28.5 % (39.0-51.0); Hemoglobin 9.3 gm/dL (13.0-17.0); Lymph # (Auto) 1.7 th/mm3 (1.0-4.8); Lymph % (Auto) 27.6 % (9.0-44.0); Mean Corpuscular HGB Conc 32.6 % (32.0-36.0); Mean Corpuscular Hemoglobin 27.3 pg (27.0-34.0); Mean Corpuscular Volume 83.7 fL (80.0-100.0); Mean Platelet Volume 7.9 fL (7.0-11.0); Mono # (Auto) 0.5 th/mm3 (0.0-0.9); Mono % (Auto) 9.1 % (0.0-8.0); Neut # (Auto) 3.7 th/mm3 (1.8-7.7); Neut % (Auto) 61.5 % (16.0-70.0); Platelet Count 168 th/mm3 (150-450); Red Cell Distribution Width 20.1 % (11.6-17.2)
--- NOTE | 2018-08-19 11:47 | P.PNNP ---
Subjective Interval history: Continues to have Lasix drip running. Patient feels great today, no complaints of chest pain or shortness of breath. Has a trace amount of edema to bilateral lower extremities, +1. Today's BMP is pending. Physical Exam Vital signs: Vital Signs 08/18/18 12:00 08/18/18 13:00 08/18/18 14:00 Temperature Pulse Rate 62 72 62 Respiratory Rate 28 H 22 19 Blood Pressure 131/70 143/80 H 153/82 H Pulse Oximetry 95 96 94 L 08/18/18 15:00 08/18/18 15:36 08/18/18 16:00 Temperature 97.7 F Pulse Rate 67 64 60 Respiratory Rate 30 H 18 16 Blood Pressure 127/72 120/59 L Pulse Oximetry 96 94 L 08/18/18 17:00 08/18/18 18:00 08/18/18 19:46 Temperature Pulse Rate 66 56 L 62 Respiratory Rate 29 H 15 22 Blood Pressure 151/84 H 147/79 H 134/84 Pulse Oximetry 97 92 L 95 08/18/18 20:00 08/18/18 21:00 08/18/18 21:09 Temperature 97.8 F Pulse Rate 60 62 59 L Respiratory Rate 20 24 Blood Pressure 133/75 Pulse Oximetry 95 94 L 08/18/18 22:00 08/18/18 23:00 08/19/18 00:00 Temperature 98.2 F Pulse Rate 68 62 67 Respiratory Rate 18 Blood Pressure 128/70 Pulse Oximetry 93 L 08/19/18 00:27 08/19/18 02:00 08/19/18 02:52 Temperature Pulse Rate 66 66 64 Respiratory Rate Blood Pressure Pulse Oximetry 08/19/18 03:24 08/19/18 04:00 08/19/18 04:36 Temperature 98.2 F Pulse Rate 55 L 61 63 Respiratory Rate 20 18 Blood Pressure 141/78 H Pulse Oximetry 92 L 08/19/18 05:49 08/19/18 07:00 08/19/18 08:00 Temperature 97.4 F L Pulse Rate 54 L 53 L 65 Respiratory Rate 15 19 Blood Pressure 128/74 142/81 H Pulse Oximetry 99 100 08/19/18 08:54 08/19/18 09:00 08/19/18 10:00 Temperature Pulse Rate 60 64 68 Respiratory Rate 18 28 H 19 Blood Pressure 114/87 116/65 Pulse Oximetry 99 98 95 Intake & Output 08/18/18 08/19/18 08/19/18 18:59 06:59 18:59 Intake Total 700 / 700 700 / 700 Output Total 3100 / 3100 3250 / 3250 Balance -2400 / -2400 -2550 / -2550 Weight 85.5 kg Intake: IV 100 / 100 100 / 100 Lasix Inj 100 MG In NS Inj 90 100 / 100 100 / 100 ML @ 10 mls/hr IV.CONT .Q10H [facility] Rx#:[id number] Oral 600 / 600 600 / 600 Output: Urine 3100 / 3100 3250 / 3250 Other: Date of Last Bowel Movement 08/18/18 08/19/18 08/19/18 # Bowel Movements 1 1 Narrative: GENERAL: Well-nourished, well-developed patient. SKIN: Warm and dry. HEAD: Normocephalic. EYES: No scleral icterus. No injection or drainage. NECK: Supple, trachea midline. No JVD or lymphadenopathy. CARDIOVASCULAR: Regular rate and rhythm without murmurs, gallops, or rubs. RESPIRATORY: Breath sounds diminished at bases GASTROINTESTINAL: Abdomen soft, non-tender, nondistended. EXTREMITIES: Trace edema to bilateral lower extremities NEUROLOGICAL: Awake, alert, and oriented x 3. Non-focal. Assessment and Plan - Assessment (1) Acute kidney injury superimposed on chronic kidney disease Code(s): N17.9 - Acute kidney failure, unspecified; N18.9 - Chronic kidney disease, unspecified Status: Acute Plan: This morning BMP pending. 6.3 L off, no complaints of shortness of breath or chest pain. 85.5 kg, 93 kg on admission, on the Hemoglobin now has improved to 9.3, likely secondary to hemodilution with fluid overload CHF, diastolic, with preserved EF. -May discontinue Lasix drip -BMP pending -On metolazone daily, 5 mg -May discharge from a renal standpoint if BMP is stable with a decline in creatinine. His baseline is 3-3.3 -Follow-up at [facility] (2) Hypertension Code(s): I10 - Essential (primary) hypertension Status: Chronic Qualifiers: Hypertension type: unspecified Qualified Code(s): I10 - Essential (primary ) hypertension Plan: Currently controlled On atenolol and Norvasc Continue to monitor his blood pressure (3) Noncompliance with medication regimen Code(s): Z91.14 - Patient's other noncompliance with medication regimen Status : Acute Plan: He has history of noncompliance and has been actively smoking he states he stopped 2 days ago
[2018-08-19 11:48] LABS: Calcium 8.4 mg/dL (8.5-10.1); Carbon Dioxide 28.1 meq/L (21.0-32.0); Magnesium 2.2 mg/dL (1.5-2.5); Phosphorus 4.4 mg/dL (2.5-4.9); Potassium 4.9 meq/L (3.5-5.1)
[2018-08-19] MEDS ORDERED: Warfarin Consult Pharmacy OTHER PRN (13:30)
[2018-08-20] MEDS: Chlorhexidine Gluconate 2% 1 Pack (2 Cloths) TOPICAL SCH (03:25)
[2018-08-20 05:24] LABS: Baso % (Auto) 0.3 % (0.0-2.0); Eos # (Auto) 0.2 th/mm3 (0.0-0.4); Eos % (Auto) 2.5 % (0.0-4.0); Hemoglobin 9.3 gm/dL (13.0-17.0); Lymph # (Auto) 2.6 th/mm3 (1.0-4.8); Lymph % (Auto) 37.6 % (9.0-44.0); Mean Corpuscular HGB Conc 33.1 % (32.0-36.0); Mean Corpuscular Hemoglobin 27.5 pg (27.0-34.0); Mono # (Auto) 0.8 th/mm3 (0.0-0.9); Neut # (Auto) 3.3 th/mm3 (1.8-7.7); Neut % (Auto) 48.6 % (16.0-70.0); Platelet Count 255 th/mm3 (150-450); Red Blood Count 3.38 mil/mm3 (4.50-5.90); Red Cell Distribution Width 19.3 % (11.6-17.2); White Blood Count 6.8 th/mm3 (4.0-11.0)
[2018-08-20 05:33] LABS: INR 1.1 Ratio; Prothrombin Time 11.6 sec (9.8-11.6)
[2018-08-20 05:50] LABS: Calcium 8.1 mg/dL (8.5-10.1); Carbon Dioxide 30.1 meq/L (21.0-32.0); Phosphorus 4.2 mg/dL (2.5-4.9); Potassium 4.2 meq/L (3.5-5.1)
[2018-08-20] MEDS: Insulin NovoLIN Regular Correctional Sugar Inj SQ SCH ×4 (08:12→21:58)
--- NOTE | 2018-08-20 09:35 | P.PNIM ---
Subjective Interval history: Follow-up fluid overload and kidney disease. He is doing well currently on room air. Voiding. Physical Exam Vital signs: Vital Signs 08/19/18 10:00 08/19/18 11:00 08/19/18 12:00 Temperature 97.8 F Pulse Rate 68 62 69 Respiratory Rate 19 15 43 H Blood Pressure 116/65 121/69 116/70 Pulse Oximetry 95 73 L 93 L 08/19/18 13:00 08/19/18 14:00 08/19/18 15:14 Temperature Pulse Rate 69 71 68 Respiratory Rate 21 18 18 Blood Pressure 115/66 99/63 L Pulse Oximetry 93 L 08/19/18 16:00 08/19/18 19:00 08/19/18 19:46 Temperature Pulse Rate 58 L 66 62 Respiratory Rate 13 21 18 Blood Pressure 123/74 Pulse Oximetry 97 94 L 08/19/18 19:48 08/19/18 20:00 08/19/18 20:40 Temperature 98.6 F Pulse Rate 63 67 65 Respiratory Rate 20 26 H 20 Blood Pressure 113/68 Pulse Oximetry 98 08/19/18 20:49 08/19/18 21:00 08/19/18 21:48 Temperature Pulse Rate 69 64 Respiratory Rate 23 18 Blood Pressure 111/69 124/68 Pulse Oximetry 08/19/18 22:00 08/19/18 22:48 08/19/18 23:00 Temperature Pulse Rate 59 L 61 60 Respiratory Rate 16 18 14 Blood Pressure 106/65 Pulse Oximetry 96 08/19/18 23:48 08/20/18 00:00 08/20/18 03:50 Temperature Pulse Rate 58 L 58 L 109 H Respiratory Rate 16 17 18 Blood Pressure 127/78 Pulse Oximetry 96 08/20/18 04:23 08/20/18 08:46 Temperature 98.5 F Pulse Rate 67 76 Respiratory Rate 21 15 Blood Pressure 103/61 Pulse Oximetry 100 95 Intake & Output 08/19/18 08/20/18 08/20/18 18:59 06:59 18:59 Intake Total 940 / 940 Output Total 1525 / 1525 850 / 850 Balance -585 / -585 -850 / -850 Weight 83.8 kg Intake: IV 100 / 100 Lasix Inj 100 MG In NS Inj 90 100 / 100 ML @ 10 mls/hr IV.CONT .Q10H [facility] Rx#:[id number] Oral 840 / 840 Output: Urine 1525 / 1525 850 / 850 Other: # Voids 3 Date of Last Bowel Movement 08/19/18 08/19/18 # Bowel Movements 3 Narrative: GENERAL: Middle-age male, lying in bed, no acute distress CHEST: Equal chest rise. Unlabored. CARDIOVASCULAR: Normal rate, regular rhythm. Sinus. ABDOMEN: Soft, nontender, nondistended. No guarding. MUSCULOSKELETAL: Pulses 2+. Improved 2+ pitting edema of the lower extremities. NEUROLOGICAL: Alert and oriented nonfocal Results Labs CBC & Chem 7: 08/20/18 04:27 08/20/18 04:27 Labs: Microbiology 08/17/18 02:55 Blood - Peripheral Aerobic Blood Culture - Preliminary No growth in 2 days 08/17/18 02:55 Blood - Peripheral Anaerobic Blood Culture - Preliminary No growth in 2 days 08/17/18 01:43 Blood - Peripheral Aerobic Blood Culture - Preliminary No growth in 2 days 08/17/18 01:43 Blood - Peripheral Anaerobic Blood Culture - Preliminary No growth in 2 days Procedures Procedures: none Assessment and Plan (1) Acute kidney injury superimposed on chronic kidney disease: Code(s): N17.9 - Acute kidney failure, unspecified; N18.9 - Chronic kidney disease, unspecified Status: Acute (2) Hypertension: Code(s): I10 - Essential (primary) hypertension Status: Chronic (3) Noncompliance with medication regimen: Code(s): Z91.14 - Patient's other noncompliance with medication regimen Status: Acute Plan This is a 63-year-old male with stage IV CKD and heart failure with preserved EF who presents with acute severe diastolic type congestive heart failure exacerbation. Review of the records, this may likely be secondary to iatrogenic fluid overload from prior admission. Severe acute diastolic type congestive heart failure exacerbation. Much improved responded well to Bumex drip and metolazone, both discontinued - daily weights, CHF education, I/o Acute pulmonary edema. Resolved Acute hypoxemia requiring supplemental oxygen - wean o2 for goal spo2 > 90% - forced diuresis as above - Improved chest x-ray - prn nebs Stage IV CKD. Declining renal function nonoliguric - forced diuresis - strict i/o's - daily Cr monitoring. Further management by nephrology Anemia secondary to acute blood loss from recent GI bleed - no evidence of active GI bleeding at this time check Hemoccult - bid ppi - trend hgb on daily cbc - drop over last few days may be related to dilution from CHF, currently stable - does not meet transfusion triggers at this time. Paroxysmal A. fib. Coumadin restarted renal/cardiac diet as tolerated SCDs SQH q12h, DC when INR over 2 discharge back to rehab when cleared by nephrology Progress Note: Quality VTE Deep Vein Thrombosis/Pulmonary Embolism Present on Admission: No _ (1) Hypertension Qualifiers: Hypertension type: unspecified Qualified Code(s): I10 - Essential (primary) hypertension
[2018-08-20] MEDS: Gabapentin 100 MG Capsule PO SCH ×2 (09:38→21:58)
[2018-08-20] MEDS: Loratadine 10 MG Tablet PO SCH (09:38)
[2018-08-20] MEDS: Senna/Docusate Sodium 8.6/50 MG Tablet PO SCH ×2 (09:38→21:58)
[2018-08-20] MEDS: Atenolol 50 MG Tablet PO SCH (09:38)
[2018-08-20] MEDS: amLODIPine 10 MG Tablet PO SCH (09:38)
[2018-08-20] MEDS: Heparin - SQ 10,000 UNITS/ML Vial SQ SCH ×2 (09:39→21:58)
[2018-08-20] MEDS: Sodium Chloride 0.9% 2 ML Flush BID IV.FLUSH SCH ×2 (09:40→21:57)
[2018-08-20] MEDS: Polyethylene Glycol 3350 17 GM Packet PO SCH ×2 (09:40→21:58)
[2018-08-20] MEDS ORDERED: Albumin Human 5% Inj 500 ML IV.SIG ONE (18:12)
--- NOTE | 2018-08-20 18:14 | P.PNNP ---
Subjective Interval history: Patient is sitting on the chair Passing urine denies dysuria Physical Exam Vital signs: Vital Signs 08/19/18 19:00 08/19/18 19:46 08/19/18 19:48 Temperature Pulse Rate 66 62 63 Respiratory Rate 21 18 20 Blood Pressure 113/68 Pulse Oximetry 94 L 08/19/18 20:00 08/19/18 20:40 08/19/18 20:49 Temperature 98.6 F Pulse Rate 67 65 Respiratory Rate 26 H 20 Blood Pressure 111/69 Pulse Oximetry 98 08/19/18 21:00 08/19/18 21:48 08/19/18 22:00 Temperature Pulse Rate 69 64 59 L Respiratory Rate 23 18 16 Blood Pressure 124/68 Pulse Oximetry 96 08/19/18 22:48 08/19/18 23:00 08/19/18 23:48 Temperature Pulse Rate 61 60 58 L Respiratory Rate 18 14 16 Blood Pressure 106/65 127/78 Pulse Oximetry 96 08/20/18 00:00 08/20/18 03:50 08/20/18 04:23 Temperature 98.5 F Pulse Rate 58 L 109 H 67 Respiratory Rate 17 18 21 Blood Pressure 103/61 Pulse Oximetry 100 08/20/18 08:00 08/20/18 08:46 08/20/18 12:00 Temperature 98.1 F 97.5 F L Pulse Rate 84 76 66 Respiratory Rate 16 15 17 Blood Pressure 112/70 104/68 Pulse Oximetry 95 08/20/18 16:00 08/20/18 17:21 Temperature 97.8 F Pulse Rate 72 70 Respiratory Rate 17 18 Blood Pressure 110/70 Pulse Oximetry Intake & Output 08/19/18 08/20/18 08/20/18 18:59 06:59 18:59 Intake Total 940 / 940 Output Total 1525 / 1525 850 / 850 Balance -585 / -585 -850 / -850 Weight 83.8 kg Intake: IV 100 / 100 Lasix Inj 100 MG In NS Inj 90 100 / 100 ML @ 10 mls/hr IV.CONT .Q10H [facility] Rx#:[id number] Oral 840 / 840 Output: Urine 1525 / 1525 850 / 850 Other: # Voids 3 Date of Last Bowel Movement 08/19/18 08/19/18 # Bowel Movements 3 Narrative: GENERAL: Well-nourished, well-developed patient. SKIN: Warm and dry. HEAD: Normocephalic. EYES: No scleral icterus. No injection or drainage. NECK: Supple, trachea midline. No JVD or lymphadenopathy. CARDIOVASCULAR: Regular rate and rhythm without murmurs, gallops, or rubs. RESPIRATORY: Breath sounds diminished at bases GASTROINTESTINAL: Abdomen soft, non-tender, nondistended. EXTREMITIES: Trace edema to bilateral lower extremities NEUROLOGICAL: Awake, alert, and oriented x 3. Non-focal. Assessment and Plan - Assessment (1) Acute kidney injury superimposed on chronic kidney disease Code(s): N17.9 - Acute kidney failure, unspecified; N18.9 - Chronic kidney disease, unspecified Status: Acute Plan: This morning BMP-creatinine 4.6, encouraged to drink more water. 2.3 L off, no complaints of shortness of breath or chest pain. 83.8 kg, 93 kg on admission, on the Hemoglobin now has improved to 9.3, likely secondary to hemodilution with fluid overload CHF, diastolic, with preserved EF. Give 5% albumin 25 g x1 he is volume depleted -Off Lasix drip -BMP for tomorrow -Follow-up with Dr. Khan -His baseline is 3-3.3 -Follow-up at [facility] (2) Hypertension Code(s): I10 - Essential (primary) hypertension Status: Chronic Qualifiers: Hypertension type: unspecified Qualified Code(s): I10 - Essential (primary ) hypertension Plan: Currently controlled On atenolol and Norvasc Continue to monitor his blood pressure (3) Noncompliance with medication regimen Code(s): Z91.14 - Patient's other noncompliance with medication regimen Status : Acute Plan: He has history of noncompliance and has been actively smoking he states he stopped 2 days ago
[2018-08-21] MEDS: Chlorhexidine Gluconate 2% 1 Pack (2 Cloths) TOPICAL SCH (03:05)
[2018-08-21] MEDS: Loratadine 10 MG Tablet PO SCH (09:26)
[2018-08-21] MEDS: Insulin NovoLIN Regular Correctional Sugar Inj SQ SCH ×2 (09:26→15:52)
[2018-08-21] MEDS: Gabapentin 100 MG Capsule PO SCH (09:26)
[2018-08-21] MEDS: Senna/Docusate Sodium 8.6/50 MG Tablet PO SCH (09:27)
[2018-08-21] MEDS: Atenolol 50 MG Tablet PO SCH (09:27)
[2018-08-21] MEDS: amLODIPine 10 MG Tablet PO SCH (09:28)
[2018-08-21] MEDS: Sodium Chloride 0.9% 2 ML Flush BID IV.FLUSH SCH (09:29)
[2018-08-21] MEDS: Heparin - SQ 10,000 UNITS/ML Vial SQ SCH (09:31)
[2018-08-21] MEDS: Polyethylene Glycol 3350 17 GM Packet PO SCH (09:32)
[2018-08-21 09:38] LABS: Baso # (Auto) 0.1 th/mm3 (0.0-0.2); Baso % (Auto) 0.6 % (0.0-2.0); Eos # (Auto) 0.3 th/mm3 (0.0-0.4); Eos % (Auto) 3.5 % (0.0-4.0); Hematocrit 28.4 % (39.0-51.0); Hemoglobin 9.9 gm/dL (13.0-17.0); Lymph % (Auto) 22.7 % (9.0-44.0); Mean Corpuscular HGB Conc 34.8 % (32.0-36.0); Mean Corpuscular Hemoglobin 28.9 pg (27.0-34.0); Mean Corpuscular Volume 83.1 fL (80.0-100.0); Mono # (Auto) 1.2 th/mm3 (0.0-0.9); Mono % (Auto) 12.9 % (0.0-8.0); Neut # (Auto) 5.4 th/mm3 (1.8-7.7); Neut % (Auto) 60.3 % (16.0-70.0); Platelet Count 275 th/mm3 (150-450); Red Blood Count 3.41 mil/mm3 (4.50-5.90); Red Cell Distribution Width 19.5 % (11.6-17.2)
[2018-08-21 09:43] LABS: INR 1.1 Ratio; Prothrombin Time 11.2 sec (9.8-11.6)
[2018-08-21 09:45] LABS: Calcium 7.7 mg/dL (8.5-10.1); Carbon Dioxide 29.5 meq/L (21.0-32.0); Magnesium 2.2 mg/dL (1.5-2.5); Phosphorus 3.2 mg/dL (2.5-4.9); Potassium 4.1 meq/L (3.5-5.1)
--- NOTE | 2018-08-21 10:33 | P.PNIM ---
Subjective Interval history: Follow-up of renal dysfunction. He is doing okay anxious to leave the hospital wants to go back to rehab. He is voiding. Physical Exam Vital signs: Vital Signs 08/20/18 12:00 08/20/18 16:00 08/20/18 17:21 Temperature 97.5 F L 97.8 F Pulse Rate 66 72 70 Respiratory Rate 17 17 18 Blood Pressure 104/68 110/70 Pulse Oximetry 08/20/18 20:00 08/21/18 00:00 08/21/18 04:00 Temperature 97.8 F 98.7 F 98.0 F Pulse Rate 64 92 H 100 H Respiratory Rate 19 Blood Pressure 111/81 127/71 141/71 H Pulse Oximetry 08/21/18 07:35 Temperature 98.3 F Pulse Rate 71 Respiratory Rate 20 Blood Pressure 110/60 Pulse Oximetry 96 Intake & Output 08/20/18 08/21/18 08/21/18 18:59 06:59 18:59 Intake Total 800 / 800 1100 / 1100 360 / 360 Output Total 500 / 500 Balance 800 / 800 600 / 600 360 / 360 Weight 83.8 kg Intake: IV 500 / 500 Alburx 5% Inj 500 ML @ 250 mls/ 500 / 500 hr IV.SIG ONCE ONE Rx#:[id number] Oral 800 / 800 600 / 600 360 / 360 Output: Urine 500 / 500 Other: # Voids 6 2 Date of Last Bowel Movement 08/20/18 # Bowel Movements 4 Narrative: GENERAL: Middle-age male, lying in bed, no acute distress CHEST: Equal chest rise. Unlabored. CARDIOVASCULAR: Normal rate, regular rhythm. Sinus. ABDOMEN: Soft, nontender, nondistended. No guarding. MUSCULOSKELETAL: Pulses 2+. Improved 2+ pitting edema of the lower extremities. NEUROLOGICAL: Alert and oriented nonfocal Results Labs CBC & Chem 7: 08/21/18 09:16 08/21/18 09:16 Labs: Microbiology 08/17/18 02:55 Blood - Peripheral Aerobic Blood Culture - Preliminary No growth in 3 days 08/17/18 02:55 Blood - Peripheral Anaerobic Blood Culture - Preliminary No growth in 3 days 08/17/18 01:43 Blood - Peripheral Aerobic Blood Culture - Preliminary No growth in 3 days 08/17/18 01:43 Blood - Peripheral Anaerobic Blood Culture - Preliminary No growth in 3 days Procedures Procedures: none Assessment and Plan (1) Acute kidney injury superimposed on chronic kidney disease: Code(s): N17.9 - Acute kidney failure, unspecified; N18.9 - Chronic kidney disease, unspecified Status: Acute (2) Hypertension: Code(s): I10 - Essential (primary) hypertension Status: Chronic (3) Noncompliance with medication regimen: Code(s): Z91.14 - Patient's other noncompliance with medication regimen Status: Acute Plan This is a 63-year-old male with stage IV CKD and heart failure with preserved EF who presents with acute severe diastolic type congestive heart failure exacerbation. Review of the records, this may likely be secondary to iatrogenic fluid overload from prior admission. Severe acute diastolic type congestive heart failure exacerbation. Much improved responded well to Bumex drip and metolazone, both discontinued - daily weights, CHF education, I/o Acute pulmonary edema. Resolved Acute hypoxemia requiring supplemental oxygen - wean o2 for goal spo2 > 90% - forced diuresis as above - Improved chest x-ray - prn nebs Stage IV CKD. Nonoliguric. Renal function slightly better down to 4.31 status post IV albumin - status post forced diuresis - strict i/o's - daily Cr monitoring. Further management by nephrology Anemia secondary to acute blood loss from recent GI bleed - no evidence of active GI bleeding at this time check Hemoccult - bid ppi - trend hgb on daily cbc - drop over last few days may be related to dilution from CHF, currently stable - does not meet transfusion triggers at this time. Paroxysmal A. fib. Coumadin restarted renal/cardiac diet as tolerated SCDs SQH q12h, DC when INR over 2 discharge back to rehab when cleared by nephrology Progress Note: Quality VTE Deep Vein Thrombosis/Pulmonary Embolism Present on Admission: No _ (1) Hypertension Qualifiers: Hypertension type: unspecified Qualified Code(s): I10 - Essential (primary) hypertension
--- NOTE | 2018-08-21 12:25 | P.DS ---
DS: Providers Date of admission: 08/17/18 03:35 Primary care physician: UNKNOWN Consults: 08/17/18 16:36 Consult to Hospitalist Routine Consulting Provider: Ty Soria Reason for Consultation: Assume care in am 08/18/18 Notified:: Service Spoke with:: YOSEF Date Notified:: 08/17/18 Time Notified:: 16:42 Ordering Provider: JOLLY 08/18/18 09:47 Consult to Nephrology Routine Consulting Provider: Yisel North Does the patient have a Cable Wirer who follows them?: No Preferred Nephrology Energy Economist:: Steel Finisher Physician Reason for Consultation: stage 4 CKD now on diuretics for HF Notified:: Service Spoke with:: henry Date Notified:: 08/18/18 Time Notified:: 09:51 Ordering Provider: SANNA 08/20/18 14:53 HUB Only Consult Order Routine Consulting Provider: Florentino Hernandez Reason for Consultation: SNF Brief History from admission: 63-year-old male with stage IV CKD and heart failure with preserved EF who was recently admitted for GI bleeding and was discharged 4 days ago. Per review of last hospital records, his net I's and O's were approximately 1 L positive up from admission at the end of his hospital stay, and on day of discharge he did gain 2 kg. He states that ever since he was discharged home he felt more short of breath than prior to coming to the hospital. He has had worsening lower extremity edema and orthopnea. In the emergency department he was hypoxic requiring supplemental oxygen. BNP is greater than 1300. Chest x-ray demonstrates bilateral infiltrates suggestive of pulmonary edema. He denies chest pain, nausea, vomiting, constipation, diarrhea or abdominal pain. Remainder of the review systems is negative. DS: Diagnosis Discharge Diagnosis (1) Acute kidney injury superimposed on chronic kidney disease: Status: Acute (2) Hypertension: Status: Chronic (3) Noncompliance with medication regimen: Status: Acute DS: Summary This is a 63-year-old male with stage IV CKD and heart failure with preserved EF who presents with acute severe diastolic type congestive heart failure exacerbation. Review of the records, this may likely be secondary to iatrogenic fluid overload from prior admission. Severe acute diastolic type congestive heart failure exacerbation. Much improved responded well to Bumex drip and metolazone, both discontinued - daily weights, CHF education, I/o Acute pulmonary edema. Resolved Acute hypoxemia requiring supplemental oxygen - wean o2 for goal spo2 > 90% - forced diuresis as above - Improved chest x-ray - prn nebs Stage IV CKD. Declining renal function nonoliguric - forced diuresis - strict i/o's - daily Cr monitoring. Further management by nephrology Anemia secondary to acute blood loss from recent GI bleed - no evidence of active GI bleeding at this time check Hemoccult - bid ppi - trend hgb on daily cbc - drop over last few days may be related to dilution from CHF, currently stable - does not meet transfusion triggers at this time. Paroxysmal A. fib. Coumadin restarted renal/cardiac diet as tolerated SCDs SQH q12h, DC when INR over 2 Time Spent with Patient Total time spent providing and/or coordinating discharge services: Greater than 30 minutes Quality: VTE Deep Vein Thrombosis/Pulmonary Embolism Present on Admission: No Exam Narrative Exam Narrative: GENERAL: Middle-age male, lying in bed, no acute distress CHEST: Equal chest rise. Unlabored. CARDIOVASCULAR: Normal rate, regular rhythm. Sinus. ABDOMEN: Soft, nontender, nondistended. No guarding. MUSCULOSKELETAL: Pulses 2+. Improved 2+ pitting edema of the lower extremities. NEUROLOGICAL: Alert and oriented nonfocal Results Procedures completed during hospitalization: none Labs on day of discharge: Labs from last 24 hours 08/21/18 08/21/18 08/21/18 09:16 09:16 09:16 WBC 9.0 RBC 3.41 L Hgb 9.9 L Hct 28.4 L MCV 83.1 MCH 28.9 MCHC 34.8 RDW 19.5 H Plt Count 275 MPV 7.0 Neut % (Auto) 60.3 Lymph % (Auto) 22.7 [place] % (Auto) 12.9 H Eos % (Auto) 3.5 Baso % (Auto) 0.6 Neut # (Auto) 5.4 Lymph # (Auto) 2.0 [place] # (Auto) 1.2 H Eos # (Auto) 0.3 Baso # (Auto) 0.1 WBC Differential . Differential Comment Auto diff final PT 11.2 INR 1.1 Sodium 141 Potassium 4.1 Chloride 103 Carbon Dioxide 29.5 Anion Gap 9 BUN 92 H Creatinine 4.31 H Estimated GFR 17 L POC Glucose Random Glucose 102 Calcium 7.7 L Phosphorus 3.2 D Magnesium 2.2 08/21/18 08/20/18 08/20/18 07:39 20:57 17:03 WBC RBC Hgb Hct MCV MCH MCHC RDW Plt Count MPV Neut % (Auto) Lymph % (Auto) [place] % (Auto) Eos % (Auto) Baso % (Auto) Neut # (Auto) Lymph # (Auto) [place] # (Auto) Eos # (Auto) Baso # (Auto) WBC Differential Differential Comment PT INR Sodium Potassium Chloride Carbon Dioxide Anion Gap BUN Creatinine Estimated GFR POC Glucose 125 H 255 H 110 Random Glucose Calcium Phosphorus Magnesium Preliminary micro results at discharge 08/17/18 02:55 Aerobic Blood Culture - Preliminary Blood - Peripheral No growth in 4 days Anaerobic Blood Culture - Preliminary No growth in 4 days 08/17/18 01:43 Aerobic Blood Culture - Preliminary Blood - Peripheral No growth in 4 days Anaerobic Blood Culture - Preliminary No growth in 4 days Impressions ITS Impressions Chest X-Ray 08/18/18 05:00 CONCLUSION: Improvement in the bibasilar consolidations. Tiny right effusion and cardiomegaly remains. Discharge Plan Discharge Disposition Patient Disposition: Discharge to SNF Discharge Condition Condition: Stable Discharge Order Discharge Orders: Discharge Order (Routine); Ordered 08/21/18 Ordered By: Martin Herman Physicians Team Primary Care Provider: UNKNOWN, Attending Provider: Martin Herman Other Providers: Yisel North ; [facility] Rxs /Orders / Referrals /Forms Prescriptions: New ipratropium-albuterol 0.5 mg-3 mg(2.5 mg base)/3 mL Solution For Nebulization 1 amp NEB Q6HR NEB Qty: 300 RF: 0 lactulose 20 gram/30 mL Solution 30 ml PO BID Qty: 180 RF: 0 warfarin [Coumadin] 5 mg Tablet 5 mg PO DAILY@1600 Qty: 30 RF: 0 Continue pantoprazole 40 mg Tablet,Delayed Release (Dr/Ec) 40 mg PO BID 30 Days Qty: 60 RF: 2 atorvastatin 40 mg Tablet 40 mg PO DAILY Qty: 30 RF: 0 aspirin [Aspir-Low] 81 mg Tablet,Delayed Release (Dr/Ec) 81 mg PO DAILY Qty: 30 RF: 0 amlodipine 10 mg Tablet 10 mg PO DAILY Qty: 30 RF: 0 gabapentin 100 mg Capsule 100 mg PO BID Qty: 60 RF: 0 atenolol 50 mg Tablet 50 mg PO DAILY Qty: 30 RF: 0 loratadine 10 mg Capsule 10 mg PO DAILY Qty: 30 RF: 0 colchicine [Colcrys] 0.6 mg Tablet 0.6 mg PO BID PRN (Reason: gout pain) Qty: 6 RF: 0 ipratropium-albuterol 0.5 mg-3 mg(2.5 mg base)/3 mL Solution For Nebulization 3 ml INHALATION Q6-8H PRN (Reason: Shortness Of Breath) RF: 0 Discontinued hydralazine 50 mg Tablet 25 mg PO TID Qty: 90 RF: 0 benzocaine-menthol 15-2.6 mg Lozenge 1 misty MUCOUS MEMBRANE Q2-4H PRN (Reason: Cough) RF: 0 tamsulosin 0.4 mg Capsule 0.4 mg PO DAILY Qty: 30 RF: 0 Ambulatory Orders / Order Sets / DME: Basic Metabolic Panel (Routine) Timeframe: [id number] Location: Determined by Patient Ordered By: Martin Heramn Prothrombin Time INR (Routine) Location: Determined by Patient Ordered By: Martin Herman Referrals: Primary Care Golden,Kathleen [Family Provider] - See Instructions (Follow-up MD in 1 week) Yisel North MD [Physician] - See Instructions (Follow-up MD in 1-2 weeks) UNKNOWN, [Primary Care Provider] - See Instructions Discharge Instructions Patient Printed Instructions: Heart Failure (GEN) Post Discharge Care Plan Care Plan Goals: Your Health Problems: Goals to Promote Your Health: * To prevent worsening of your condition * To maintain your health at the optimal level Directions to Meet Your Goals: * Take your medications as prescribed * Follow your dietary instruction * Follow activity as directed * Keep your appointments as scheduled * Take your immunizations and boosters as scheduled * If your symptoms worsen call your PCP * If no PCP go to Urgent Care or Emergency Room Smoking is dangerous to your health. Avoid second hand smoke. You may reach the 24-hour crisis hotline for domestic abuse at . Status ED Status: Left Department Discharge Information Discharge Date/Time: 08/21/18 19:40
--- NOTE | 2018-08-21 15:14 | P.PNNP ---
Subjective Interval history: Seen in AM. Wants to go home. Reports that shortness of breath has improved. Creatinine 4.3. <Camryn Meng - Last Filed: 08/21/18 15:15> Physical Exam Vital signs: Vital Signs 08/20/18 16:00 08/20/18 17:21 08/20/18 20:00 Temperature 97.8 F 97.8 F Pulse Rate 72 70 64 Respiratory Rate 17 18 19 Blood Pressure 110/70 111/81 Pulse Oximetry 08/21/18 00:00 08/21/18 04:00 08/21/18 07:35 Temperature 98.7 F 98.0 F 98.3 F Pulse Rate 92 H 100 H 71 Respiratory Rate 19 19 20 Blood Pressure 127/71 141/71 H 110/60 Pulse Oximetry 96 08/21/18 11:35 Temperature 97.9 F Pulse Rate 78 Respiratory Rate 20 Blood Pressure 124/71 Pulse Oximetry 96 Intake & Output 08/20/18 08/21/18 08/21/18 18:59 06:59 18:59 Intake Total 800 / 800 1100 / 1100 360 / 360 Output Total 500 / 500 Balance 800 / 800 600 / 600 360 / 360 Weight 83.8 kg Intake: IV 500 / 500 Alburx 5% Inj 500 ML @ 250 mls/ 500 / 500 hr IV.SIG ONCE ONE Rx#:[id number] Oral 800 / 800 600 / 600 360 / 360 Output: Urine 500 / 500 Other: # Voids 6 2 Date of Last Bowel Movement 08/20/18 08/20/18 # Bowel Movements 4 Narrative: GENERAL: Well-nourished, well-developed patient. SKIN: Warm and dry. HEAD: Normocephalic. EYES: No scleral icterus. No injection or drainage. NECK: Supple, trachea midline. No JVD CARDIOVASCULAR: Regular rate and rhythm without murmurs, gallops, or rubs. RESPIRATORY: Breath sounds diminished at bases GASTROINTESTINAL: Abdomen soft, non-tender, nondistended. EXTREMITIES: Trace edema to bilateral lower extremities NEUROLOGICAL: Awake, alert, and oriented x 3. Non-focal. <Camryn Meng - Last Filed: 08/21/18 15:15> Vital signs: Vital Signs 08/21/18 00:00 08/21/18 04:00 08/21/18 07:35 Temperature 98.7 F 98.0 F 98.3 F Pulse Rate 92 H 100 H 71 Respiratory Rate 19 19 20 Blood Pressure 127/71 141/71 H 110/60 Pulse Oximetry 96 08/21/18 11:35 08/21/18 15:55 Temperature 97.9 F 97.7 F Pulse Rate 78 78 Respiratory Rate 20 20 Blood Pressure 124/71 122/70 Pulse Oximetry 96 95 Intake & Output 08/21/18 08/21/18 08/22/18 06:59 18:59 06:59 Intake Total 1100 / 1100 360 / 360 Output Total 500 / 500 Balance 600 / 600 360 / 360 Weight 83.8 kg Intake: IV 500 / 500 Alburx 5% Inj 500 ML @ 250 mls/ 500 / 500 hr IV.SIG ONCE ONE Rx#:[id number] Oral 600 / 600 360 / 360 Output: Urine 500 / 500 Other: # Voids 2 Date of Last Bowel Movement 08/20/18 <Gia Khan - Last Filed: 08/21/18 22:17> Assessment and Plan - Assessment (1) Acute kidney injury superimposed on chronic kidney disease Code(s): N17.9 - Acute kidney failure, unspecified; N18.9 - Chronic kidney disease, unspecified Status: Acute Plan: Most likely, the patient has hypertensive renovascular disease causing renal failure. Advanced stage IV renal disease and baseline his GFR was around 23-24. There is some acute element with some worsening of the GFR and the creatinine related to volume depletion. Avoid any nephrotoxins including IV contrast and NSAIDS. Creatinine slightly at 4.1 and fluid/electrolytes stable. Will follow urinary output and BMP Patient is discharged will need outpatient follow up with nephrology. (2) Hypertension Code(s): I10 - Essential (primary) hypertension Status: Chronic Qualifiers: Hypertension type: unspecified Qualified Code(s): I10 - Essential (primary ) hypertension Plan: Currently controlled Continue to monitor his blood pressure (3) Noncompliance with medication regimen Code(s): Z91.14 - Patient's other noncompliance with medication regimen Status : Acute Plan: He has history of noncompliance and has been actively smoking he states he stopped 2 days ago <Camryn Meng - Last Filed: 08/21/18 15:15> - Assessment (1) Acute kidney injury superimposed on chronic kidney disease Code(s): N17.9 - Acute kidney failure, unspecified; N18.9 - Chronic kidney disease, unspecified Status: Acute Plan: Patient seen and examined, agree with above. Patient with advance stage 4 chronic kidney disease. Now for discharge. Has been non compliant. Creatinine stable. (2) Hypertension Code(s): I10 - Essential (primary) hypertension Status: Chronic Qualifiers: Hypertension type: unspecified Qualified Code(s): I10 - Essential (primary ) hypertension (3) Noncompliance with medication regimen Code(s): Z91.14 - Patient's other noncompliance with medication regimen Status : Acute <Gia Khan - Last Filed: 08/21/18 22:17>
== END 2018-08-21 19:40 | DRG 291 ==
LOC: NEPE 01:21 → NEDA 03:35 → N03 04:47
PROVIDERS: ADMIT Internal Medicine; ATTEND Internal Medicine
DX: I25.10 Atherosclerotic heart disease of native coronary artery without angina pectoris; Z79.82 Long term (current) use of aspirin; Z95.1 Presence of aortocoronary bypass graft; I25.2 Old myocardial infarction; J44.9 Chronic obstructive pulmonary disease, unspecified; N18.4 Chronic kidney disease, stage 4 (severe); N17.9 Acute kidney failure, unspecified; D62 Acute posthemorrhagic anemia; R09.02 Hypoxemia; I13.0 Hypertensive heart and chronic kidney disease with heart failure and stage 1 through stage 4 chronic kidney disease, or unspecified chronic kidney disease; I48.91 Unspecified atrial fibrillation; Z87.891 Personal history of nicotine dependence; Z91.14 Patient's other noncompliance with medication regimen; Z79.01 Long term (current) use of anticoagulants; I50.33 Acute on chronic diastolic (congestive) heart failure; E78.5 Hyperlipidemia, unspecified
CPT/HCPCS: 71010; 71045; 76937; 80048; 80053; 80307; 82948; 82962; 83520; 83735; 83880; 84100; 84484; 85025; 85610; 85730; 86850; 86900; 86901; 87040; 87275; 87276; 87641; 87804; 90774; 90784; 93005; 94150; 94640; 94664; 94665; 94667; 96374; 97116; 97162; 97167; 97535; 99291; C8952; C9113; J1644; J1940; P9045